=== PATIENT | female | born 1970 | race Caucasian/White ===

== ENCOUNTER 2016-12-15 19:32 | Emergency (ER) | payer MEDICARE, OTHER ==
[2016-12-15 19:39] VITALS: RESP 18
[2016-12-15] MEDS ORDERED: ONDANSETRON 4 MG/2 ML VIAL IVP STA (20:19)
[2016-12-15] MEDS ORDERED: SODIUM CHLORIDE 0.9% 1,000 ML IV STA (20:19)
[2016-12-15] MEDS ORDERED: DIAZEPAM 5 MG TAB PO STA (20:22)
[2016-12-15 20:34] LABS: Basophils # (A) 0.1 k/uL (0-0.2); Basophils % (A) 1 %; CH 35.6; CHCM 33.1; Eosinophils # (A) 0.1 k/uL (0-0.7); Eosinophils % (A) 1 %; HCT 49.1 % (34.0-46.0); HDW 2.11; HGB 15.9 gm/dL (11.4-16.0); Luc # (Auto) 0.28; Luc % (Auto) 4; Lymphocytes # (A) 1.7 k/uL (1.0-4.8); Lymphocytes % (A) 23 %; MCH 34.9 pg (25.0-35.0); MCHC 32.3 g/dL (31.0-37.0); Macrocytosis Moderate; Mean Platelet Volume 7.9; Monocytes # (A) 0.4 k/uL (0-1.0); Monocytes % (A) 5 %; Neutrophils # (A) 4.9 k/uL (1.3-7.7); Neutrophils % (A) 66 %; RBC 4.55 m/uL (3.80-5.40); RDW 13.8 % (11.5-15.5); WBC 7.4 k/uL (3.8-10.6); WBC (Perox) 7.29
[2016-12-15 20:47] LABS: Partial Thromboplastin Time 24.1 sec (22.0-30.0); Prothrombin Time 10.1 sec (9.0-12.0)
[2016-12-15 20:49] LABS: ALT 38 U/L (9-52); AST 22 U/L (14-36); Alkaline Phosphatase 64 U/L (38-126); Anion Gap 15 mmol/L; Blood Urea Nitrogen 7 mg/dL (7-17); Calcium 10.2 mg/dL (8.4-10.2); Carbamazepine (Tegretol) 4.8 ug/mL; Carbon Dioxide 23 mmol/L (22-30); Chloride 110 mmol/L (98-107); Glucose 99 mg/dL (74-99); Non-African American GFR(MDRD) >60 (>60 ml/min/1.73 sqM); Potassium 3.5 mmol/L (3.5-5.1); Sodium 148 mmol/L (137-145); Total Bilirubin 0.7 mg/dL (0.2-1.3); Total Protein 7.6 g/dL (6.3-8.2)
[2016-12-15 20:52] LABS: Creatine Kinase 49 U/L (30-135)
--- NOTE | 2016-12-15 20:56 | XR ---
EXAMINATION TYPE: XR chest 2V DATE OF EXAM: 12/15/2016 8:39 PM COMPARISON: 11/17/2015 HISTORY: Chest pain TECHNIQUE: Frontal and lateral views of the chest are obtained. FINDINGS: Heart and mediastinum are normal. Lungs are clear. Costophrenic angles are clear. There ar e no hilar masses. There are chest leads. Bony thorax is intact. IMPRESSION: No active cardiopulmonary disease. No change.
[2016-12-15 21:05] LABS: Creatine Kinase MB 0.3 ng/mL (0.0-2.4); Troponin I <0.012 ng/mL (0.000-0.034)
--- NOTE | 2016-12-15 21:09 | CT ---
EXAMINATION TYPE: CT brain wo con DATE OF EXAM: 12/15/2016 9:00 PM COMPARISON: 06/06/2012 HISTORY: seizure today with weakness CT DLP: 1072.3 mGycm Automated exposure control for dose reduction was used. FINDINGS: There is mild frontal lobe atrophy.. There is no mass effect nor midline shift. There is no sign of i ntracranial hemorrhage. The calvarium is intact. IMPRESSION: No acute intracranial abnormality. Frontal lobe atrophy. No change compared to old exam.
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
[2016-12-16 00:09] VITALS: BP 108/60; PULSE 93; TEMP 98
== END 2016-12-16 00:10 | disposition home or self-care (01) ==
LOC: EC 19:32
DX: R55 Syncope and collapse (principal); R56.9 Unspecified convulsions; Z72.89 Other problems related to lifestyle; R51 Headache; R07.9 Chest pain, unspecified; J44.9 Chronic obstructive pulmonary disease, unspecified; F31.9 Bipolar disorder, unspecified; F41.9 Anxiety disorder, unspecified; Z86.14 Personal history of Methicillin resistant Staphylococcus aureus infection; F17.200 Nicotine dependence, unspecified, uncomplicated; Z79.899 Other long term (current) drug therapy; Z88.0 Allergy status to penicillin; Z91.041 Radiographic dye allergy status; Z91.018 Allergy to other foods; Z85.41 Personal history of malignant neoplasm of cervix uteri
CPT/HCPCS: 36415; 93005; 85379; 80156; 80053; 82550; 82553; 83735; 84484; 85025; 85610; 85730; 71020; 70450; 99285; 96374; 96361; J2405

== ENCOUNTER 2016-12-29 09:23 | Emergency (ER) | payer MEDICARE, OTHER ==
[2016-12-29] MEDS ORDERED: SODIUM CHLORIDE 0.9% 1,000 ML IV STA (09:42)
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
[2016-12-29 10:26] LABS: Basophils % (A) 0 %; CHCM 33.2; Eosinophils # (A) 0.1 k/uL (0-0.7); Eosinophils % (A) 2 %; HCT 41.3 % (34.0-46.0); HDW 2.17; HGB 14.1 gm/dL (11.4-16.0); Luc # (Auto) 0.19; Luc % (Auto) 3; Lymphocytes # (A) 1.9 k/uL (1.0-4.8); Lymphocytes % (A) 35 %; MCH 36.2 pg (25.0-35.0); MCHC 34.2 g/dL (31.0-37.0); MCV 105.9 fL (80.0-100.0); Macrocytosis Moderate; Mean Platelet Volume 7.1; Monocytes # (A) 0.4 k/uL (0-1.0); Monocytes % (A) 6 %; Neutrophils % (A) 54 %; RDW 13.6 % (11.5-15.5); WBC 5.6 k/uL (3.8-10.6); WBC (Perox) 5.62
[2016-12-29 10:35] LABS: Appearance,Urine Cloudy (Clear); Bacteria,Urine Rare /hpf; Bilirubin,Urine Negative (Negative); Glucose,Urine (UA) Negative (Negative); Ketones,Urine Trace (Negative); Leukocyte Esterase,Urine Negative (Negative); Mucus,Urine Many /hpf; Nitrite,Urine Positive (Negative); Particle Count 18919; Protein,Urine Trace (Negative); Specific Gravity,Urine 1.019 (1.001-1.035); Squamous Epithelial Cell,Urine 23 /hpf (0-4); UA Billing (MACRO vs. MICRO) MICRO; Urobilinogen,Urine <2.0 mg/dL (<2.0); WBC,Urine 5 /hpf (0-5)
[2016-12-29 10:40] LABS: ALT 61 U/L (9-52); AST 26 U/L (14-36); Alkaline Phosphatase 90 U/L (38-126); Anion Gap 10 mmol/L; Blood Urea Nitrogen 10 mg/dL (7-17); Calcium 9.2 mg/dL (8.4-10.2); Carbon Dioxide 28 mmol/L (22-30); Chloride 106 mmol/L (98-107); Glucose 87 mg/dL (74-99); Non-African American GFR(MDRD) >60 (>60 ml/min/1.73 sqM); Potassium 3.8 mmol/L (3.5-5.1); Sodium 144 mmol/L (137-145); Total Bilirubin 0.3 mg/dL (0.2-1.3); Total Protein 6.5 g/dL (6.3-8.2)
--- NOTE | 2016-12-29 10:45 | XR ---
EXAMINATION TYPE: XR chest 2V DATE OF EXAM: 12/29/2016 10:41 AM COMPARISON: NONE INDICATION: Cough rapid weight loss TECHNIQUE: Single frontal view of the chest is obtained. FINDINGS: The heart size is normal. The pulmonary vasculature is normal. The lungs are clear. There is a vertebral plasty in the region of L1. IMPRESSION: 1. No acute pulmonary process.
[2016-12-29 11:44] VITALS: BP 142/68; PULSE 73; RESP 18; TEMP 97.7
== END 2016-12-29 11:44 | disposition home or self-care (01) ==
LOC: EC 09:23
DX: N39.0 Urinary tract infection, site not specified (principal); R63.4 Abnormal weight loss; G40.909 Epilepsy, unspecified, not intractable, without status epilepticus; F31.9 Bipolar disorder, unspecified; F41.9 Anxiety disorder, unspecified; M79.7 Fibromyalgia; F17.200 Nicotine dependence, unspecified, uncomplicated; Z79.3 Long term (current) use of hormonal contraceptives; Z79.899 Other long term (current) drug therapy; Z88.0 Allergy status to penicillin; Z91.012 Allergy to eggs; Z91.018 Allergy to other foods; Z91.041 Radiographic dye allergy status; Z85.41 Personal history of malignant neoplasm of cervix uteri; Z90.710 Acquired absence of both cervix and uterus
CPT/HCPCS: 36415; 71020; 80053; 81001; 81025; 84443; 85025; 87086; 87502; 96360; 99284

== ENCOUNTER 2017-01-09 14:32 | Emergency (ER) | payer MEDICARE, OTHER ==
[2017-01-09 14:47] VITALS: RESP 16
[2017-01-09] MEDS ORDERED: PANTOPRAZOLE 40 MG/10 ML VIAL IVP STA (15:16)
[2017-01-09] MEDS ORDERED: ONDANSETRON 4 MG/2 ML VIAL IVP STA (15:16)
[2017-01-09] MEDS ORDERED: SODIUM CHLORIDE 0.9% 1,000 ML IV STA ×3 (15:16→16:18)
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
[2017-01-09 15:57] LABS: Basophils % (A) 0 %; CH 35.4; CHCM 33.6; Eosinophils % (A) 0 %; HCT 39.5 % (34.0-46.0); HDW 2.49; HGB 13.2 gm/dL (11.4-16.0); Luc # (Auto) 0.11; Luc % (Auto) 2; Lymphocytes # (A) 2.1 k/uL (1.0-4.8); Lymphocytes % (A) 36 %; MCH 35.5 pg (25.0-35.0); MCHC 33.5 g/dL (31.0-37.0); Macrocytosis Moderate; Mean Platelet Volume 8.4; Monocytes # (A) 0.3 k/uL (0-1.0); Monocytes % (A) 5 %; Neutrophils # (A) 3.2 k/uL (1.3-7.7); Neutrophils % (A) 57 %; RBC 3.73 m/uL (3.80-5.40); RDW 13.8 % (11.5-15.5); WBC 5.7 k/uL (3.8-10.6)
--- NOTE | 2017-01-09 16:08 | CT ---
EXAMINATION TYPE: CT abdomen pelvis wo con DATE OF EXAM: 01/09/2017 3:57 PM COMPARISON: NONE INDICATION: abdominal pain N/V/D DLP: 252.2 mGycm, Automated exposure control for dose reduction was used. CONTRAST: No IV contrast. Study performed without Oral Contrast TECHNIQUE: Axial images were obtained from above the diaphragm to the pubic rami in the axial plane a t 5 mm thick sections. Reconstructed images are reviewed on the computer in the coronal plane. FINDINGS: Bilateral breast prostheses are present. Limited CT sections are obtained the lung bases. Some streak opacities in the anterior right middle lobe above the diaphragm.. CT ABDOMEN: Surgical clips are within the epigastric region. Liver: Normal Spleen: Normal Pancreas: Normal Adrenal glands: The adrenal glands are normal. Gallbladder: Not identified. Kidneys: No masses are evident. No hydronephrosis is present. No cysts are present. Delayed images were obtained through the kidneys, which remain unremarkable. There is 0.2 cm calcification is in th e posterior left mid kidney without evidence of obstruction. Aorta: Vascular calcification is within the aorta. Inferior vena cava: Normal. CT PELVIS: Loops of bowel within the abdomen and pelvis are normal. There are loops of bowel which are incom pletely distended or lack oral contrast limiting their evaluation. Appendix: Normal as visualized. Urinary bladder: Decompressed with limited evaluation. Genitourinary structures: Uterus is not identified. Adnexal regions appear clear. No free fluid is wi thin the pelvis. Osseous structures: No suspicious lytic or sclerotic lesions. Bilateral hip screws are present. Facet degenerative changes are within the lumbar spine. There may be prior vertebroplasty at L1. A sclerot ic lesion could be considered. IMPRESSIONS: 1. Nonobstructing punctate left renal stone. 2. No suspicious acute changes.
[2017-01-09 16:09] LABS: ALT 220 U/L (9-52); AST 112 U/L (14-36); Alcohol <10 mg/dL; Alkaline Phosphatase 172 U/L (38-126); Amylase 53 U/L (30-110); Anion Gap 10 mmol/L; Blood Urea Nitrogen 8 mg/dL (7-17); Calcium 9.6 mg/dL (8.4-10.2); Carbamazepine (Tegretol) <3.0 ug/mL; Carbon Dioxide 24 mmol/L (22-30); Chloride 109 mmol/L (98-107); Glucose 89 mg/dL (74-99); Non-African American GFR(MDRD) >60 (>60 ml/min/1.73 sqM); Potassium 3.8 mmol/L (3.5-5.1); Sodium 143 mmol/L (137-145); Total Bilirubin 0.7 mg/dL (0.2-1.3); Total Protein 6.5 g/dL (6.3-8.2)
[2017-01-09 16:11] LABS: Partial Thromboplastin Time 23.5 sec (22.0-30.0); Prothrombin Time 10.2 sec (9.0-12.0)
[2017-01-09 16:52] VITALS: PULSE 55; TEMP 97.5
[2017-01-09 18:20] LABS: Appearance,Urine Clear (Clear); Bilirubin,Urine Negative (Negative); Glucose,Urine (UA) Negative (Negative); Ketones,Urine Trace (Negative); Leukocyte Esterase,Urine Negative (Negative); Nitrite,Urine Negative (Negative); Protein,Urine Trace (Negative); Specific Gravity,Urine 1.012 (1.001-1.035); UA Billing (MACRO vs. MICRO) CHEM
[2017-01-09 19:49] VITALS: BP 124/74
== END 2017-01-09 19:49 | disposition home or self-care (01) ==
LOC: EC 14:32
DX: N20.0 Calculus of kidney (principal); R74.0 Nonspecific elevation of levels of transaminase and lactic acid dehydrogenase [LDH]; F10.10 Alcohol abuse, uncomplicated; R10.32 Left lower quadrant pain; R11.2 Nausea with vomiting, unspecified; R63.4 Abnormal weight loss; R00.1 Bradycardia, unspecified; G40.909 Epilepsy, unspecified, not intractable, without status epilepticus; F31.9 Bipolar disorder, unspecified; F41.9 Anxiety disorder, unspecified; F42.9 Obsessive-compulsive disorder, unspecified; F17.200 Nicotine dependence, unspecified, uncomplicated; Z79.899 Other long term (current) drug therapy; Z88.0 Allergy status to penicillin; Z91.012 Allergy to eggs; Z91.018 Allergy to other foods; Z91.041 Radiographic dye allergy status; Z90.49 Acquired absence of other specified parts of digestive tract; Z90.710 Acquired absence of both cervix and uterus; Z98.51 Tubal ligation status
CPT/HCPCS: 99284; 96374; 96375; 96361 ×4; 36415; 93005; 80156; 80053; 82150; 83605; 83690; 85025; 85610; 85730; 81003; 87040; 80320; 74176; J2405; C9113

== ENCOUNTER 2017-01-26 08:26 | Day surgery (SDC) | payer MEDICARE, OTHER ==
[2017-01-24 14:56] VITALS: BMI 18.1
[~2017-01-26 08:26] MED LIST: LACTATED RINGERS 1,000 ML IV SCH; LIDOCAINE 1% 20 ML VIAL (10MG/ML) FOR IV START INTRADERMA PRN
[2017-01-26 10:18] VITALS: RESP 16; TEMP 97.2
[2017-01-26] MEDS ORDERED: PROPOFOL 10 MG/ML 20 ML VIAL IV ONE (11:32)
[2017-01-26] MEDS ORDERED: fentaNYL (PF) 50 MCG/ML 2 ML AMP ONE (11:32)
[2017-01-26] MEDS ORDERED: LIDOCAINE 1% INJ 10MG/ML (20 ML MDV) ONE ×2 (11:32)
--- NOTE | 2017-01-26 12:28 | P.PCN ---
Date of Procedure: 01/26/17 Procedure(s) Performed: Procedures: Esophagogastroduodenoscopy and biopsy. Total colonoscopy. Preoperative diagnosis: Epigastric pain and change in bowel habits. Postoperative diagnosis: 1. S/P [place] fundoplication with no obvious esophagitis. 2. Mild antral gastritis. 3. Normal colonoscopy. Preparation: HalfLytely prep. Sedation: Was provided by anesthesia. Brief clinical history: The patient is a 46-year-old female who is referred for this evaluation because of unexplained epigastric pain and change in bowel habits with worsening constipation. The patient had [place] fundoplication last year. She is not experiencing acid reflux or heart nicole. No overt bleeding. Procedure: With the patient on her left lateral decubitus position and after informed consent and adequate sedation, I passed a Olympus-GIF 160 video upper endoscope through the cricopharyngeus down the esophagus. GE junction was around 41 cm from the incisors and there was a very small hiatal hernia less than 1 cm. The esophagus did not show any erosions, ulcers, strictures or Crwaley's esophagus. The endoscope was then passed into the stomach which was insufflated with air and inspected in detail including the retroflex view in the cardia. There was some mottling and erythema in the antrum but no ulcers or erosions. The patient has evidence of prior [place] fundoplication and the wrap did not appear too tight or very loose. Pyloric channel, duodenal bulb, post bulbar area and descending duodenum appeared within normal limits. I obtained biopsies from the duodenum, antrum and esophagus then the endoscope was withdrawn and I proceeded to do colonoscopy. Perianal area did not show any fissures or fistulas. There were no masses felt on digital rectal examination. The Olympus CFQ 160L video colonoscope was then inserted in the rectum in the usual fashion and advanced to the cecum. I intubated the ileocecal valve and examined the terminal ileum. Terminal ileum and colon appeared healthy. No obvious diverticular disease or any polyps or tumors or other pathology were seen. I retroflexed the endoscope in the rectum before the endoscope was withdrawn. The patient tolerated the procedure well. Plan: The patient was reassured. Discussed dietary measures. Would await pathology results and make further recommendations based on her course and biopsy results. She will follow-up with you as planned.
[2017-01-26 12:34] VITALS: BP 131/80; PULSE 60
== END 2017-01-26 13:08 | disposition home or self-care (01) ==
LOC: ORWHC2ENDO 08:26
DX: K29.50 Unspecified chronic gastritis without bleeding (principal); R19.4 Change in bowel habit; K20.9 Esophagitis, unspecified; K59.00 Constipation, unspecified; F17.200 Nicotine dependence, unspecified, uncomplicated; K44.9 Diaphragmatic hernia without obstruction or gangrene; Z90.710 Acquired absence of both cervix and uterus; Z79.899 Other long term (current) drug therapy; Z98.890 Other specified postprocedural states
CPT/HCPCS: 88305; 88342; 45378; 43239; J2001; J3010; J2704

== ENCOUNTER → 2017-04-04 | Outpatient (CLI) | payer MEDICARE, OTHER ==
[2017-04-04 16:38] LABS: Basophils % (A) 0 %; CH 34.4; CHCM 33.9; Eosinophils # (A) 0.1 k/uL (0-0.7); Eosinophils % (A) 1 %; HCT 39.5 % (34.0-46.0); HDW 2.19; HGB 13.8 gm/dL (11.4-16.0); Luc % (Auto) 2; Lymphocytes # (A) 1.8 k/uL (1.0-4.8); Lymphocytes % (A) 31 %; MCH 35.6 pg (25.0-35.0); MCV 101.8 fL (80.0-100.0); Macrocytosis Slight; Mean Platelet Volume 7.7; Monocytes # (A) 0.4 k/uL (0-1.0); Monocytes % (A) 6 %; Neutrophils # (A) 3.5 k/uL (1.3-7.7); Neutrophils % (A) 60 %; RBC 3.88 m/uL (3.80-5.40); RDW 13.4 % (11.5-15.5); WBC 5.8 k/uL (3.8-10.6); WBC (Perox) 5.77
== END | disposition home or self-care (01) ==
LOC: LABWHC1 16:03
PROVIDERS: ATTEND Psychiatry & Neurology Psychiatry
DX: F31.75 Bipolar disorder, in partial remission, most recent episode depressed (principal)
CPT/HCPCS: 36415; 80156; 85025

== ENCOUNTER 2017-07-04 12:04 | Emergency (ER) | payer MEDICARE, OTHER ==
[2017-07-04 12:42] VITALS: RESP 18; TEMP 98.2
--- NOTE | 2017-07-04 12:54 | ED ---
General Adult HPI - General Chief complaint: Chest Pain Stated complaint: Fall-Rib Pain Time Seen by Provider: 07/04/17 12:47 Source: patient Mode of arrival: ambulatory Limitations: physical limitation - History of Present Illness Initial comments: 47-year-old female patient presented to emergency department with complaints of left rib pain. Patient states that approximately 3 weeks ago she was climbing up a boat ladder when she missed the last rung and fell hitting her ribs on the side of the boat. She states since then she has had significant pain to the left ribs, states that the pain increases with any coughing, deep breathing, sneezing, or laughing. She states that the pain does not seem be getting any better. She states she did have some [place] left over from a previous injury and had been taking that. She states she is out of that now. She denies any shortness of breath, cough, congestion, sputum production, fever, or chills. Patient denies any headache, neck pain, back pain, chest pain, dizziness, weakness, abdominal pain, nausea, vomiting, or difficulties with urination. She states straining to have bowel movements is also painful so she is feeling constipated as well. - Related Data Home Medications Medication Instructions Recorded Confirmed Diazepam [Valium] 10 mg PO TID PRN 08/26/15 01/24/17 SUMAtriptan SUCCINATE [Sumatriptan 4 mg SQ DAILY PRN 05/04/16 01/26/17 Succinate] Ziprasidone HCl [Geodon] 60 mg PO HS 05/04/16 01/26/17 carBAMazepine [Carbamazepine ER] 400 mg PO HS 05/04/16 01/26/17 Albuterol Inhaler [Ventolin Hfa 2 puff INHALATION RT-Q6H PRN 07/19/16 01/24/17 Inhaler] Estradiol [Estrace] 1 mg PO HS 07/19/16 01/26/17 oxyCODONE-APAP 10-325MG [Percocet 1 tab PO TID PRN 07/19/16 01/26/17 10-325 mg] Melatonin 10 mg PO HS PRN 12/29/16 01/26/17 Ondansetron [Zofran] 4 mg PO Q8HR PRN 01/24/17 01/26/17 Previous Rx's Medication Instructions Recorded Omeprazole [PriLOSEC] 40 mg PO DAILY #30 capsule. 01/09/17 Docusate [Colace] 100 mg PO DAILY #10 capsule 07/04/17 Ibuprofen 800 mg PO TID PRN #30 tablet 07/04/17 traMADol HCl [Ultram] 50 mg PO Q6H PRN #28 tab 07/04/17 Allergies Allergy/AdvReac Type Severity Reaction Status Date / Time Penicillins Allergy Severe Anaphylaxis Verified 07/04/17 12:42 Iodinated Contrast- Oral and Allergy Unknown Rash/Hives Verified 07/04/17 12:42 IV Dye [Iodinated Contrast Media - IV Dye] egg yolk Allergy Unknown Verified 07/04/17 12:42 mustard Allergy Unknown Verified 07/04/17 12:42 Review of Systems ROS Statement: Those systems with pertinent positive or pertinent negative responses have been documented in the HPI. ROS Other: All systems not noted in ROS Statement are negative. Past Medical History Past Medical History: Cancer, COPD, Fibromyalgia, GERD/Reflux, Hypertension, Osteoarthritis (OA), Seizure Disorder Additional Past Medical History / Comment(s): HX CERVICAL CA, MIGRAINES, POSITIVE HPV, FREQUENT CONSTIPATION. LAST SEIZURE 12/26/2015. , H-PYLORI, COMPRESSION FX BACK, LOW THYROID. History of Any Multi-Drug Resistant Organisms: MRSA Date of last positivie culture/infection: NOVEMBER 2012 MDRO Source:: RT ELBOW Past Surgical History: Breast Surgery, Cholecystectomy, Hysterectomy, Orthopedic Surgery, Tonsillectomy, Tubal Ligation Additional Past Surgical History / Comment(s): RT ROTATOR CUFF REPAIR. SHAWANDA HIP SURGERY (INJURY). BREAST AUGMENTATION, LUMP LT NECK, RT ELBOW SURGERY FOR MRSA INFECTION., CARMEN FUNDOPLASTY (11/24/15). EGD and balloon dilatation-12/23/15 , 12/31 2016: Revision of fundoplication, bilateral oophorectomy for ovarian cysts Past Anesthesia/Blood Transfusion Reactions: No Reported Reaction, Family History of Problems w/ Anesthesia Additional Past Anesthesia/Blood Transfusion Reaction / Comment(s): MOTHER= A- FIB WITH ANESTHESIA. Past Psychological History: Anxiety, Bipolar, Depression Smoking Status: Heavy tobacco smoker Past Alcohol Use History: None Reported Past Drug Use History: None Reported - Past Family History Father Family Medical History: Hypertension Additional Family Medical History / Comment(s): Father at age 58 most likely due to complications from alcoholism and drug addiction. He also had history of hypertension and glaucoma. Brother(s) Family Medical History: No Reported History Additional Family Medical History / Comment(s): She has one brother that is a recovered alcoholic with no other major medical problems. Sister(s) Additional Family Medical History / Comment(s): Patient has one sister that suffers from depression and anxiety Mother Family Medical History: Cancer, Dementia, Deep Vein Thrombosis (DVT), Hypertension, Pulmonary Embolus Additional Family Medical History / Comment(s): history of corneal transplant, hypertension, diabetes, BREAST CA. Maternal grandmother history of breast cancer General Exam Limitations: physical limitation General appearance: alert, in no apparent distress, other (This is a well- developed, well-nourished adult female patient in no acute distress. Vital signs upon presentation are temperature 98.2F, pulse 97, respirations 18, blood pressure 132/86, pulse ox 99% on room air.) Eye exam: Present: normal appearance, PERRL, EOMI. Absent: scleral icterus, conjunctival injection, periorbital swelling ENT exam: Present: normal exam, normal oropharynx, mucous membranes moist Neck exam: Present: normal inspection, full ROM. Absent: tenderness, meningismus, lymphadenopathy Respiratory exam: Present: normal lung sounds bilaterally, chest wall tenderness (Left anterior chest wall tenderness over the mid axillary line at approximately ribs 8 and 9.). Absent: respiratory distress, wheezes, rales, rhonchi, stridor Cardiovascular Exam: Present: regular rate, normal rhythm, normal heart sounds. Absent: systolic murmur, diastolic murmur, rubs, gallop, clicks GI/Abdominal exam: Present: soft, normal bowel sounds. Absent: distended, tenderness, guarding, rebound, rigid Back exam: Present: normal inspection. Absent: tenderness, vertebral tenderness Neurological exam: Present: alert, oriented X3, CN II-XII intact Psychiatric exam: Present: normal affect, normal mood Skin exam: Present: warm, dry, intact, normal color. Absent: rash Course Vital Signs 07/04/17 07/04/17 12:37 13:43 Temperature 98.2 F Pulse Rate 97 66 Respiratory 18 18 Rate Blood Pressure 132/86 138/84 O2 Sat by Pulse 99 97 Oximetry Medical Decision Making - Medical Decision Making 47-year-old female patient presented for evaluation of left anterior rib pain after an injury sustained 3 weeks ago. X-ray of the chest and ribs showed anterior rib fractures to ribs 8 and 9. There is no evidence of pneumothorax or focal lung consolidation. Physical exam did show some anterior rib tenderness. No abdominal tenderness, ecchymosis, or distention. Patient was given incentive spirometer and education while here in the department. Did give her prescription for Ultram and ibuprofen for pain control. Did educate her regarding coughing and deep breathing. I also did give her prescription for Colace that she has been constipated all taking the [place] and due to pain in the ribs with straining to have a bowel movement. I instructed her to follow up with her primary care physician for recheck in a couple of days. I instructed her to return here immediately for any new, worsening, or concerning symptoms. She verbalizes understanding and agreement with this plan. - Radiology Data Radiology results: report reviewed, image reviewed Single view of the chest and 4 views of the right ribs are submitted. Findings show the lungs are clear. No evidence for pneumothorax. No evidence for focal contusion. Mediastinal structures are midline. Evaluation of the ribs demonstrates a virtually nondisplaced fractures involving the anterior left ribs 8 and 9. No additional rib fracture seen. L1 vertebral plasty changes identified. Impression by Dr. Brandt states fractures of left ribs 8 and 9. No evidence for contusion or pneumothorax at this time. Disposition Clinical Impression: Rib fractures Disposition: HOME SELF-CARE Condition: Good Instructions: How to Use an Incentive Spirometer (ED), Rib Fracture (ED) Additional Instructions: Take pain medications as directed. Follow with her primary care physician for recheck in 1-2 days. Use incentives barometer as directed. At least 10 times per hour while awake. Splint chest area while coughing and deep breathing. Return here immediately for any new, worsening, or concerning symptoms. Prescriptions: Docusate [Colace] 100 mg PO DAILY #10 capsule Ibuprofen 800 mg PO TID PRN #30 tablet PRN Reason: Pain traMADol HCl [Ultram] 50 mg PO Q6H PRN #28 tab PRN Reason: Pain Referrals: None,Stated [Primary Care Provider] - 1-2 days Time of Disposition: 13:43
--- NOTE | 2017-07-04 13:19 | XR ---
EXAMINATION TYPE: XR ribs LT w pa chest xray DATE OF EXAM: 07/04/2017 COMPARISON: NONE HISTORY: Pain TECHNIQUE: Single view of the chest 4 views of the ribs are submitted. FINDINGS: The lungs are clear. No Evidence for pneumothorax. No evidence for focal contusion. Mediastinal st ructures are midline. Evaluation of the ribs demonstrates that virtually nondisplaced fractures involving the anterior left ribs 8 and 9. No additional rib fractures seen. L1 vertebroplasty changes identified. IMPRESSION: 1. Fractures of left ribs 8 and 9. 2. No evidence for contusion or pneumothorax at this time.
[2017-07-04 13:45] VITALS: BP 138/84; PULSE 66
== END 2017-07-04 14:05 | disposition home or self-care (01) ==
LOC: EC 12:04
DX: S22.42XA Multiple fractures of ribs, left side, initial encounter for closed fracture (principal); F31.9 Bipolar disorder, unspecified; G40.909 Epilepsy, unspecified, not intractable, without status epilepticus; F17.200 Nicotine dependence, unspecified, uncomplicated; Z86.14 Personal history of Methicillin resistant Staphylococcus aureus infection; Z85.41 Personal history of malignant neoplasm of cervix uteri; Z88.0 Allergy status to penicillin; Z91.041 Radiographic dye allergy status; Z91.012 Allergy to eggs; Z91.018 Allergy to other foods; Z79.3 Long term (current) use of hormonal contraceptives; Z79.899 Other long term (current) drug therapy; W01.198A Fall on same level from slipping, tripping and stumbling with subsequent striking against other object, initial encounter; Y93.39 Activity, other involving climbing, rappelling and jumping off; Y92.814 Boat as the place of occurrence of the external cause
CPT/HCPCS: 99283

== ENCOUNTER 2018-01-23 21:12 | Emergency (ER) | payer MEDICARE, OTHER ==
[2018-01-23 21:38] VITALS: TEMP 98.3
[2018-01-23] MEDS ORDERED: FAMOTIDINE 20 MG/2 ML VIAL IV STA (22:07)
[2018-01-23] MEDS ORDERED: diphenhydrAMINE 50 MG/ML 1 ML VIAL IVP STA (22:07)
[2018-01-23] MEDS ORDERED: RX INFO: IV CONTRAST WAS GIVEN 1 EACH MISC MISCELLANE PRN (22:07)
[2018-01-23] MEDS ORDERED: methylPREDNISolone SOD SUCCI 125 MG/2 ML VIAL IV STA (22:07)
--- NOTE | 2018-01-23 22:11 | ED ---
Abdominal Pain HPI - General Chief Complaint: Abdominal Pain Stated Complaint: bowel problems Time Seen by Provider: 01/23/18 21:52 Source: patient Mode of arrival: ambulatory Limitations: no limitations - History of Present Illness Initial Comments: Patient is a 47 children who presents with chief complaint of constipation and lower abdominal pain or one month. The patient states that she had phoned mucousy diarrhea last month. She took an antidiarrheal on the prior to a road trip and since then has not had a normal bowel movement. The patient states that she is constipated. She cannot identify any inciting incidences. There are no aggravating or alleviating factors. Timing is constant. Patient states that her abdominal pain is characterized as an ache. - Related Data Home Medications Medication Instructions Recorded Confirmed Diazepam [Valium] 10 mg PO TID PRN 08/26/15 01/23/18 Ziprasidone HCl [Geodon] 60 mg PO HS 05/04/16 01/23/18 Estradiol [Estrace] 1 mg PO HS 07/19/16 01/23/18 carBAMazepine [TEGretol] 200 mg PO Q12H 01/23/18 01/23/18 Previous Rx's Medication Instructions Recorded Docusate [Colace] 100 mg PO BID #30 capsule 01/24/18 Magnesium Citrate 592 ml PO ONCE #2 bottle 01/24/18 Allergies Allergy/AdvReac Type Severity Reaction Status Date / Time Penicillins Allergy Severe Anaphylaxis Verified 01/23/18 21:56 Iodinated Contrast- Oral and Allergy Unknown Rash/Hives Verified 01/23/18 21:56 IV Dye [Iodinated Contrast Media - IV Dye] egg yolk Allergy Unknown Verified 01/23/18 21:56 mustard Allergy Unknown Verified 01/23/18 21:56 Review of Systems ROS Statement: Those systems with pertinent positive or pertinent negative responses have been documented in the HPI. ROS Other: All systems not noted in ROS Statement are negative. Gastrointestinal: Reports: abdominal pain, constipation Past Medical History Past Medical History: Cancer, COPD, Fibromyalgia, GERD/Reflux, Hypertension, Osteoarthritis (OA), Seizure Disorder Additional Past Medical History / Comment(s): HX CERVICAL CA, MIGRAINES, POSITIVE HPV, FREQUENT CONSTIPATION. LAST SEIZURE 12/26/2015. , H-PYLORI, COMPRESSION FX BACK, LOW THYROID. History of Any Multi-Drug Resistant Organisms: MRSA Date of last positivie culture/infection: NOVEMBER 2012 MDRO Source:: RT ELBOW Past Surgical History: Breast Surgery, Cholecystectomy, Hysterectomy, Orthopedic Surgery, Tonsillectomy, Tubal Ligation Additional Past Surgical History / Comment(s): RT ROTATOR CUFF REPAIR. SHAWANDA HIP SURGERY (INJURY). BREAST AUGMENTATION, LUMP LT NECK, RT ELBOW SURGERY FOR MRSA INFECTION., CARMEN FUNDOPLASTY (11/24/15). EGD and balloon dilatation-12/23/15 , 01/01 2016: Revision of fundoplication, bilateral oophorectomy for ovarian cysts Past Anesthesia/Blood Transfusion Reactions: No Reported Reaction, Family History of Problems w/ Anesthesia Additional Past Anesthesia/Blood Transfusion Reaction / Comment(s): MOTHER= A- FIB WITH ANESTHESIA. Past Psychological History: Anxiety, Bipolar, Depression Smoking Status: Heavy tobacco smoker Past Alcohol Use History: Occasional Past Drug Use History: None Reported - Past Family History Father Family Medical History: Hypertension Additional Family Medical History / Comment(s): Father at age 58 most likely due to complications from alcoholism and drug addiction. He also had history of hypertension and glaucoma. Brother(s) Family Medical History: No Reported History Additional Family Medical History / Comment(s): She has one brother that is a recovered alcoholic with no other major medical problems. Sister(s) Additional Family Medical History / Comment(s): Patient has one sister that suffers from depression and anxiety Mother Family Medical History: Cancer, Dementia, Deep Vein Thrombosis (DVT), Hypertension, Pulmonary Embolus Additional Family Medical History / Comment(s): history of corneal transplant, hypertension, diabetes, BREAST CA. Maternal grandmother history of breast cancer General Exam Limitations: no limitations General appearance: alert, in no apparent distress Head exam: Present: atraumatic, normocephalic Eye exam: Present: normal appearance ENT exam: Present: normal exam Neck exam: Present: normal inspection Respiratory exam: Present: normal lung sounds bilaterally. Absent: respiratory distress, wheezes Cardiovascular Exam: Present: regular rate. Absent: normal rhythm, bradycardia GI/Abdominal exam: Present: soft, tenderness (Mild tenderness palpation in the lower abdomen). Absent: distended, guarding, rebound Extremities exam: Present: normal inspection Back exam: Present: normal inspection. Absent: CVA tenderness (R), CVA tenderness (L) Neurological exam: Present: alert, oriented X3 Psychiatric exam: Present: normal affect, normal mood Skin exam: Present: warm, dry, intact Course Vital Signs 01/23/18 01/24/18 21:33 00:02 Temperature 98.3 F Pulse Rate 80 74 Respiratory 20 16 Rate Blood Pressure 157/86 149/93 O2 Sat by Pulse 99 96 Oximetry Medical Decision Making - Medical Decision Making Patient presents with a chief complaint of lower abdominal pain and constipation. On initial evaluation, vital signs are stable, patient is no acute distress. Patient has a history of mucousy diarrhea prior to onset of her constipation. She'll be evaluated with basic labs including liver profile and lipase. She'll be sent for computed tomography scan of the abdomen and pelvis with contrast. Patient states she gets a rash with IV contrast, she was given Solu-Medrol, Benadryl, and Pepcid prior to exam. 12:07 AM Lab evaluation this patient is unremarkable. Computed tomography scan of the abdomen and pelvis shows no evidence of intra-abdominal infection or bowel obstruction. Independent review of the films shows a moderate to large amount of stool within the small bowels and colon. I discussed these results with the patient. I recommended use of magnesium citrate at home. Patient will be prescribed stool softeners 2 bottles of magnesium citrate. She was instructed on the use. Patient was instructed to follow up with primary care in 1-2 days or return to the emergency department if symptoms worsen or change. - Lab Data Result diagrams: 01/23/18 22:37 01/23/18 22:37 Lab Results 01/23/18 01/23/18 01/23/18 Range/Units 22:37 22:37 22:37 WBC 7.8 (3.8-10.6) k/uL RBC 3.50 L (3.80-5.40) m/uL Hgb 12.2 (11.4-16.0) gm/dL Hct 35.7 (34.0-46.0) % MCV 102.0 H (80.0-100.0) fL MCH 34.9 (25.0-35.0) pg MCHC 34.2 (31.0-37.0) g/dL RDW 12.8 (11.5-15.5) % Plt Count 194 (150-450) k/uL Neutrophils % 50 % Lymphocytes % 41 % Monocytes % 6 % Eosinophils % 2 % Basophils % 0 % Neutrophils # 3.9 (1.3-7.7) k/uL Lymphocytes # 3.2 (1.0-4.8) k/uL Monocytes # 0.4 (0-1.0) k/uL Eosinophils # 0.1 (0-0.7) k/uL Basophils # 0.0 (0-0.2) k/uL Macrocytosis Slight Sodium 145 (137-145) mmol/L Potassium 3.9 (3.5-5.1) mmol/L Chloride 111 H (98-107) mmol/L Carbon Dioxide 23 (22-30) mmol/L Anion Gap 11 mmol/L BUN 9 (7-17) mg/dL Creatinine 0.60 (0.52-1.04) mg/dL Est GFR (CKD-EPI)AfAm >90 (>60 ml/min/1.73 sqM) Est GFR (CKD-EPI)NonAf >90 (>60 ml/min/1.73 sqM) Glucose 94 (74-99) mg/dL Calcium 9.1 (8.4-10.2) mg/dL Total Bilirubin 0.2 (0.2-1.3) mg/dL AST 18 (14-36) U/L ALT 19 (9-52) U/L Alkaline Phosphatase 84 (38-126) U/L Total Protein 6.1 L (6.3-8.2) g/dL Albumin 3.8 (3.5-5.0) g/dL Lipase 97 (23-300) U/L Urine Color Yellow Urine Appearance Clear (Clear) Urine pH 7.0 (5.0-8.0) Ur Specific [place] 1.024 (1.001-1.035) Urine Protein Trace H (Negative) Urine Glucose (UA) Negative (Negative) Urine Ketones Negative (Negative) Urine Blood Negative (Negative) Urine Nitrite Negative (Negative) Urine Bilirubin Negative (Negative) Urine Urobilinogen 3.0 (<2.0) mg/dL Ur Leukocyte Esterase Trace H (Negative) Urine RBC 1 (0-5) /hpf Urine WBC 3 (0-5) /hpf Ur Squamous Epith Cells 4 (0-4) /hpf Urine Mucus Few H (None) /hpf Disposition Clinical Impression: Constipation Disposition: HOME SELF-CARE Condition: Good Instructions: Constipation (ED) Prescriptions: Docusate [Colace] 100 mg PO BID #30 capsule Magnesium Citrate 592 ml PO ONCE #2 bottle Is patient prescribed a controlled substance at d/c from ED?: No Referrals: Ramy Faulkner MD [Primary Care Provider] - 1-2 days
[2018-01-23 22:56] LABS: Basophils % (A) 0 %; Eosinophils # (A) 0.1 k/uL (0-0.7); Eosinophils % (A) 2 %; HCT 35.7 % (34.0-46.0); HGB 12.2 gm/dL (11.4-16.0); Lymphocytes # (A) 3.2 k/uL (1.0-4.8); Lymphocytes % (A) 41 %; MCH 34.9 pg (25.0-35.0); MCHC 34.2 g/dL (31.0-37.0); Macrocytosis Slight; Mean Platelet Volume 8.1; Monocytes # (A) 0.4 k/uL (0-1.0); Monocytes % (A) 6 %; Neutrophils # (A) 3.9 k/uL (1.3-7.7); Neutrophils % (A) 50 %; Platelet Count 194 k/uL (150-450); RDW 12.8 % (11.5-15.5); WBC 7.8 k/uL (3.8-10.6)
[2018-01-23 23:07] LABS: ALT 19 U/L (9-52); AST 18 U/L (14-36); Albumin 3.8 g/dL (3.5-5.0); Alkaline Phosphatase 84 U/L (38-126); Anion Gap 11 mmol/L; Blood Urea Nitrogen 9 mg/dL (7-17); Calcium 9.1 mg/dL (8.4-10.2); Carbon Dioxide 23 mmol/L (22-30); Chloride 111 mmol/L (98-107); Glucose 94 mg/dL (74-99); Lipase 97 U/L (23-300); Potassium 3.9 mmol/L (3.5-5.1); Sodium 145 mmol/L (137-145); Total Bilirubin 0.2 mg/dL (0.2-1.3); Total Protein 6.1 g/dL (6.3-8.2)
[2018-01-23 23:10] LABS: Appearance,Urine Clear (Clear); Bilirubin,Urine Negative (Negative); Blood,Urine Negative (Negative); Color,Urine Yellow; Glucose,Urine (UA) Negative (Negative); Ketones,Urine Negative (Negative); Leukocyte Esterase,Urine Trace (Negative); Mucus,Urine Few /hpf; Nitrite,Urine Negative (Negative); Protein,Urine Trace (Negative); RBC,Urine 1 /hpf (0-5); Specific Gravity,Urine 1.024 (1.001-1.035); Squamous Epithelial Cell,Urine 4 /hpf (0-4); WBC,Urine 3 /hpf (0-5)
--- NOTE | 2018-01-23 23:55 | CT ---
EXAMINATION TYPE: CT abdomen pelvis w con DATE OF EXAM: 01/23/2018 COMPARISON: 01/09/2017 HISTORY: Constipation, Abd pain CT DLP: 1448 mGycm Automated exposure control for dose reduction was used. TECHNIQUE: Helical acquisition of images was performed from the lung bases through the pelvis. CONTRAST: Performed without Oral Contrast and with IV Contrast, patient injected with 100 mL of Isovue 300. FINDINGS: The lung bases are clear of consolidation. There is mild subsegmental atelectasis at the lung bases. There is no pleural effusion. Heart size is normal. There are clips at the gastroesophageal junction. Liver spleen pancreas appear normal. Bile ducts are not dilated. Gallbladder appears absent. There is no adrenal mass. Kidneys show satisfactory contrast opacification. There is no hydronephrosi s. Ureters are not dilated. There is no retroperitoneal adenopathy. There is no ascites. Bladder dist ends smoothly. There is no evidence of a pelvic mass. I see no intestinal wall thickening. There are no dilated loops. Appendix appears normal. There is no free fluid in the pelvis. I see no bony destructive process. There is a 10% compression deformity of L1 vertebra with vertebroplasty. IMPRESSION: MILD SUBSEGMENTAL ATELECTASIS AT THE LUNG BASES. NORMAL APPENDIX. I DO NOT SEE A CAUSE FOR ABDOMINAL PAIN. OLD VERTEBROPLASTY AT L1 NOTED.
[2018-01-24 00:03] VITALS: BP 149/93; PULSE 74; RESP 16
== END 2018-01-24 00:25 | disposition home or self-care (01) ==
LOC: EC 21:12
DX: K59.00 Constipation, unspecified (principal); R10.30 Lower abdominal pain, unspecified; G40.909 Epilepsy, unspecified, not intractable, without status epilepticus; F31.9 Bipolar disorder, unspecified; F41.9 Anxiety disorder, unspecified; F17.200 Nicotine dependence, unspecified, uncomplicated; Z86.14 Personal history of Methicillin resistant Staphylococcus aureus infection; Z85.41 Personal history of malignant neoplasm of cervix uteri; Z79.899 Other long term (current) drug therapy; Z88.0 Allergy status to penicillin; Z91.041 Radiographic dye allergy status; Z91.018 Allergy to other foods; Z90.49 Acquired absence of other specified parts of digestive tract
CPT/HCPCS: 36415; 80053; 83690; 85025; 81001; 74177; 99284; 96374; 96375 ×2; J1200; J2930; Q9967

== ENCOUNTER → 2018-05-29 | Outpatient (CLI) | payer MEDICARE, OTHER ==
--- NOTE | 2018-05-29 12:55 | USB ---
Reason for exam: clinical finding. History: Patient is postmenopausal and has history of endometrial cancer at age 27. Family history of breast cancer in mother and breast cancer in grandmother. Implants in both breasts. Indicated problem(s): palpable abnormality in the left breast. Physical Findings: Nurse Summary: 0.5cm movable nodule 12 o'clock nipple (nurse dw). US Breast LT Left complete breast ultrasound includes all four quadrants, the retroareolar region and axilla. Finding demonstrates a 0.6 x 0.5 x 0.2cm oval, cluster, complex, cystic lesion at 12 o'clock, improving in appearance. Implant present. These results were verbally communicated with the patient and result sheet given to the patient on 05/29/18. ASSESSMENT: Probably benign, BI-RAD 3 RECOMMENDATION: Ultrasound of the left breast in 6 months.
== END | disposition home or self-care (01) ==
LOC: RADUSWWP 10:08
PROVIDERS: ATTEND Internal Medicine
DX: N63.20 Unspecified lump in the left breast, unspecified quadrant (principal)

== ENCOUNTER → 2018-05-29 | Outpatient (CLI) | payer MEDICARE, OTHER ==
[2018-05-29 10:32] LABS: Carbamazepine (Tegretol) 6.2 ug/mL
== END | disposition home or self-care (01) ==
LOC: LABWHC1 09:31
PROVIDERS: ATTEND Psychiatry & Neurology Psychiatry
DX: F31.31 Bipolar disorder, current episode depressed, mild (principal)
CPT/HCPCS: 36415; 80156; 84450; 84460

== ENCOUNTER → 2018-06-06 | Outpatient (CLI) | payer MEDICARE, OTHER ==
--- NOTE | 2018-06-06 11:52 | FL ---
EXAMINATION: Cervical and Thoracic Esophagram DATE OF EXAM: 06/06/2018 CLINICAL INDICATION: 48-year-old female with GERD, history of [place] fundoplication 2 years ago. Karen ent complains of inability to vomit. COMPARISON: 04/21/2016 Total Fluoroscopy Time: 2 minutes Total images: 23 FINDINGS: The swallowing mechanism is normal . There is moderate spondylotic changes in the mid to lower cervic al spine with anterior endplate spurs mildly impressing on the posterior wall of the cervical esophag us. No obstructive changes. Otherwise, the hypopharyngeal anatomy is preserved. The thoracic portion has a normal course and caliber caliber. There are mild tertiary peristaltic con tractions noted. The mucosa is normal and no persistent filling defect is encountered. No abnormal narrowing is identi fied. Post surgical changes of [place] fundoplication without evidence for any recurrent hernia. Gastroesoph ageal reflux could not be elicited with Valsalva or positional maneuvers. IMPRESSION: 1. Status post [place] fundoplication. No significant stricture, obstruction, or mucosal lesion is see n. 2. No recurrent hernia. Gastroesophageal reflux could not be elicited during the course of the exam.
== END ==
LOC: RADFLWHC 09:20
PROVIDERS: ATTEND Surgery
DX: K21.9 Gastro-esophageal reflux disease without esophagitis (principal)
CPT/HCPCS: 74220

== ENCOUNTER 2018-06-12 08:11 | Day surgery (SDC) | payer MEDICARE, OTHER ==
[2018-06-11 09:42] VITALS: BMI 19.5
[~2018-06-12 08:11] MED LIST changes: +HYDROmorphone 0.5 MG/0.5 ML SYRINGE IVP PRN
[2018-06-12 08:42] VITALS: RESP 16; TEMP 98.6
[2018-06-12] MEDS ORDERED: LIDOCAINE 1% 20 ML VIAL (10MG/ML) FOR IV START INTRADERMA ONE (08:43)
[2018-06-12] MEDS ORDERED: PROPOFOL 10 MG/ML 20 ML VIAL IV ONE (08:46)
--- NOTE | 2018-06-12 08:51 | P.GSHP ---
History of Present Illness H&P Date: 06/12/18 Chief Complaint: Emesis This a 48-year-old female who presents today for EGD. Patient states she has difficulty throwing up when she has migraines. She's had a previous hiatal hernia repair. Her recent esophagram shows no evidence of obstruction or reflux. Past Medical History Past Medical History: Cancer, COPD, Fibromyalgia, GERD/Reflux, Osteoarthritis ( OA), Seizure Disorder Additional Past Medical History / Comment(s): HX CERVICAL CANCER ., MIGRAINES WITH NAUSEA ., POSITIVE HPV, IBS-C., LAST SEIZURE 2016. , H-PYLORI, LOW THYROID .,SPURS IN BACK., HX OF LAP NESSEN- STATES UNABLE TO THROW-UP SINCE. History of Any Multi-Drug Resistant Organisms: MRSA Date of last positivie culture/infection: NOVEMBER 2012 MDRO Source:: RT ELBOW Past Surgical History: Breast Surgery, Cholecystectomy, Hysterectomy, Orthopedic Surgery, Tonsillectomy, Tubal Ligation Additional Past Surgical History / Comment(s): RT ROTATOR CUFF REPAIR. SHAWANDA HIP SURGERY (INJURY). BREAST AUGMENTATION, LUMP LT NECK, RT ELBOW SURGERY FOR MRSA INFECTION., CARMEN FUNDOPLASTY (11/24/15). EGD and balloon dilatation-12/23/15 , 12/31 2016: Revision of fundoplication, bilateral oophorectomy for ovarian cysts , FX BACK SURGERY "WITH CEMENT" Past Anesthesia/Blood Transfusion Reactions: No Reported Reaction, Family History of Problems w/ Anesthesia Additional Past Anesthesia/Blood Transfusion Reaction / Comment(s): MOTHER= A- FIB WITH ANESTHESIA. Past Psychological History: Anxiety, Bipolar, Depression Additional Psychological History / Comment(s): OCD. Smoking Status: Heavy tobacco smoker Past Alcohol Use History: Occasional Additional Past Alcohol Use History / Comment(s): SMOKES SINCE AGE 15. SMOKES < 1PPD. Past Drug Use History: None Reported - Past Family History Father Family Medical History: Hypertension Additional Family Medical History / Comment(s): Father at age 58 most likely due to complications from alcoholism and drug addiction. He also had history of hypertension and glaucoma. Brother(s) Family Medical History: No Reported History Additional Family Medical History / Comment(s): She has one brother that is a recovered alcoholic with no other major medical problems. Sister(s) Additional Family Medical History / Comment(s): Patient has one sister that suffers from depression and anxiety Mother Family Medical History: Cancer, Dementia, Deep Vein Thrombosis (DVT), Hypertension, Pulmonary Embolus Additional Family Medical History / Comment(s): history of corneal transplant, hypertension, diabetes, BREAST CA. Maternal grandmother history of breast cancer Medications and Allergies Home Medications Medication Instructions Recorded Confirmed Type Diazepam [Valium] 10 mg PO TID PRN 08/26/15 06/12/18 History Estradiol [Estrace] 1 mg PO HS 07/19/16 06/11/18 History carBAMazepine [TEGretol] 400 mg PO HS 01/23/18 06/12/18 History Albuterol Inhaler [Ventolin Hfa 1 - 2 puff INHALATION RT-Q6H PRN 06/11/18 History Inhaler] Imitrex (Unknown Dose) 1 dose IM DIRECTED PRN 06/11/18 History Vitamin B-12 Injection 1 dose IM QMONTH 06/11/18 History Ziprasidone [Geodon] 80 mg PO HS 06/11/18 06/11/18 History Allergies Allergy/AdvReac Type Severity Reaction Status Date / Time Penicillins Allergy Severe Anaphylaxis Verified 06/12/18 08:28 Iodinated Contrast- Oral and Allergy Unknown Rash/Hives Verified 06/12/18 08:28 IV Dye [Iodinated Contrast Media - IV Dye] egg yolk Allergy Unknown Verified 06/12/18 08:28 mustard Allergy Unknown Verified 06/12/18 08:28 Surgical - Exam Vital Signs Temp Pulse Resp BP Pulse Ox 98.6 F 98 16 131/86 97 06/12/18 08:41 06/12/18 08:41 06/12/18 08:41 06/12/18 08:41 06/12/18 08:41 - General well developed, no distress - Eyes PERRL - ENT normal pinna - Neck no masses - Respiratory normal expansion - Cardiovascular Rhythm: regular - Abdomen Abdomen: soft, non tender Assessment and Plan Assessment: Emesis. We'll perform EGD.
--- NOTE | 2018-06-12 09:01 | P.OP ---
Date of Procedure: 06/12/18 Preoperative Diagnosis: Nausea Emesis Postoperative Diagnosis: Mild antral gastritis Procedure(s) Performed: EGD Anesthesia: MAC Surgeon: Sebastian Moss Pathology: other (Antrum) Condition: stable Disposition: PACU Description of Procedure: The patient's placed on the endoscopy table in the lateral position. She received IV sedation. The gastroscope placed oropharynx and passed into the esophagus and stomach. Scope was placed through the pylorus. The first second portion duodenum appeared normal. Scope was then brought back the antrum and this appeared mildly inflamed. A biopsies performed. The scope was then retroflexed and the remainder stomach appeared normal. There was no significant hiatal hernia. There is no evidence of any obstruction of the GE junction. The distal esophagus appeared normal. The proximal esophagus. Normal. The scope was withdrawn for patient. There is no evidence of obstruction of the GE junction. This was confirmed on endoscopy and esophagram.
[2018-06-12 09:26] VITALS: BP 131/85; PULSE 75
== END 2018-06-12 09:39 | disposition home or self-care (01) ==
LOC: ORWHC2ENDO 08:11
PROVIDERS: ATTEND Surgery
DX: K29.50 Unspecified chronic gastritis without bleeding (principal); B96.81 Helicobacter pylori [H. pylori] as the cause of diseases classified elsewhere; K21.9 Gastro-esophageal reflux disease without esophagitis; G43.909 Migraine, unspecified, not intractable, without status migrainosus; J44.9 Chronic obstructive pulmonary disease, unspecified; M79.7 Fibromyalgia; M19.90 Unspecified osteoarthritis, unspecified site; G40.909 Epilepsy, unspecified, not intractable, without status epilepticus; K58.1 Irritable bowel syndrome with constipation; E03.9 Hypothyroidism, unspecified; F41.9 Anxiety disorder, unspecified; F31.9 Bipolar disorder, unspecified; F17.210 Nicotine dependence, cigarettes, uncomplicated; Z79.890 Hormone replacement therapy; Z79.899 Other long term (current) drug therapy; Z91.041 Radiographic dye allergy status; Z91.012 Allergy to eggs; Z88.0 Allergy status to penicillin; Z91.018 Allergy to other foods; Z90.49 Acquired absence of other specified parts of digestive tract; Z98.51 Tubal ligation status; Z85.41 Personal history of malignant neoplasm of cervix uteri; Z86.14 Personal history of Methicillin resistant Staphylococcus aureus infection
CPT/HCPCS: 43239; J2704; 88305; 88342

== ENCOUNTER 2018-08-22 10:09 | Inpatient (IN) | payer MEDICARE, OTHER ==
--- NOTE | 2018-08-22 10:48 | ED ---
General Adult HPI - General Chief complaint: Arrhythmia/Palpitations Stated complaint: tachycardia Time Seen by Provider: 08/22/18 10:10 Source: patient, family, RN notes reviewed Mode of arrival: ambulatory Limitations: no limitations - History of Present Illness Initial comments: This is a 48-year-old female presents emergency Department stating she is a smoker. Patient states the last 10 days she has been coughing and having had a fever. Patient states last night her temperature is 101. Patient states she went to an urgent care facility after having been treated with azithromycin for bronchitis. From the urgent care they stated that she needed to come to the emergency department with her heart rate is 130 beats a minute. Patient states her chest is been hurting for 10 days particularly when she coughs. Patient denies any leg swelling or calf tenderness. Patient denies any abdominal pain patient denies nausea vomiting diarrhea. Denies any syncopal episode. Patient states however she has been lightheaded recently. Patient states this morning to 101 fever prior to going to the urgent care. - Related Data Home Medications Medication Instructions Recorded Confirmed Diazepam [Valium] 10 mg PO TID PRN 08/26/15 08/22/18 Estradiol [Estrace] 1 mg PO HS 07/19/16 08/22/18 carBAMazepine [TEGretol] 400 mg PO HS 01/23/18 08/22/18 Albuterol Inhaler [Ventolin Hfa 1 - 2 puff INHALATION RT-Q6H PRN 06/11/18 Inhaler] Imitrex (Unknown Dose) 1 dose IM DIRECTED PRN 06/11/18 08/22/18 Ziprasidone [Geodon] 60 mg PO HS 08/22/18 08/22/18 Allergies Allergy/AdvReac Type Severity Reaction Status Date / Time Penicillins Allergy Severe Anaphylaxis Verified 08/22/18 11:53 Iodinated Contrast- Oral and Allergy Unknown Rash/Hives Verified 08/22/18 11:53 IV Dye [Iodinated Contrast Media - IV Dye] egg yolk Allergy Unknown Verified 08/22/18 11:53 mustard Allergy Unknown Verified 08/22/18 11:53 Review of Systems ROS Statement: Those systems with pertinent positive or pertinent negative responses have been documented in the HPI. ROS Other: All systems not noted in ROS Statement are negative. Past Medical History Past Medical History: Cancer, COPD, Fibromyalgia, GERD/Reflux, Hypertension, Osteoarthritis (OA), Seizure Disorder Additional Past Medical History / Comment(s): HX CERVICAL CA, MIGRAINES, POSITIVE HPV, FREQUENT CONSTIPATION. LAST SEIZURE 12/26/2015. , H-PYLORI, COMPRESSION FX BACK, LOW THYROID. History of Any Multi-Drug Resistant Organisms: MRSA Date of last positivie culture/infection: NOVEMBER 2012 MDRO Source:: RT ELBOW Past Surgical History: Breast Surgery, Cholecystectomy, Hysterectomy, Orthopedic Surgery, Tonsillectomy, Tubal Ligation Additional Past Surgical History / Comment(s): RT ROTATOR CUFF REPAIR. SHAWANDA HIP SURGERY (INJURY). BREAST AUGMENTATION, LUMP LT NECK, RT ELBOW SURGERY FOR MRSA INFECTION., CARMEN FUNDOPLASTY (11/24/15). EGD and balloon dilatation-12/23/15 , 01/01 2016: Revision of fundoplication, bilateral oophorectomy for ovarian cysts Past Anesthesia/Blood Transfusion Reactions: No Reported Reaction, Family History of Problems w/ Anesthesia Additional Past Anesthesia/Blood Transfusion Reaction / Comment(s): MOTHER= A- FIB WITH ANESTHESIA. Past Psychological History: Anxiety, Bipolar, Depression Smoking Status: Heavy tobacco smoker Past Alcohol Use History: Daily Past Drug Use History: None Reported - Past Family History Father Family Medical History: Hypertension Additional Family Medical History / Comment(s): Father at age 58 most likely due to complications from alcoholism and drug addiction. He also had history of hypertension and glaucoma. Brother(s) Family Medical History: No Reported History Additional Family Medical History / Comment(s): She has one brother that is a recovered alcoholic with no other major medical problems. Sister(s) Additional Family Medical History / Comment(s): Patient has one sister that suffers from depression and anxiety Mother Family Medical History: Cancer, Dementia, Deep Vein Thrombosis (DVT), Hypertension, Pulmonary Embolus Additional Family Medical History / Comment(s): history of corneal transplant, hypertension, diabetes, BREAST CA. Maternal grandmother history of breast cancer General Exam - General Exam Comments Initial Comments: GENERAL: Patient is well-developed and well-nourished. Patient is nontoxic and well- hydrated and is in mild distress. ENT: Neck is soft and supple. No significant lymphadenopathy is noted. Oropharynx is clear. Moist mucous membranes. Neck has full range of motion without eliciting any pain. There is no thyroid enlargement and no masses were felt. EYES: The sclera were anicteric and conjunctiva were pink and moist. Extraocular movements were intact and pupils were equal round and reactive to light. Eyelids were unremarkable. PULMONARY: Unlabored respirations. Good breath sounds bilaterally. No audible rales rhonchi or wheezing was noted. CARDIOVASCULAR: Patient was tachycardic at 130 beats a minute. ABDOMEN: Soft and nontender with normal bowel sounds. No palpable organomegaly was noted. There is no palpable pulsatile mass. SKIN: Skin is clear with no lesions or rashes and otherwise unremarkable. NEUROLOGIC: Patient is alert and oriented x3. Cranial nerves II through XII are grossly intact. Motor and sensory are also intact. Normal speech, volume and content. Symmetrical smile. MUSCULOSKELETAL: Normal extremities with adequate strength and full range of motion. No lower extremity swelling or edema. No calf tenderness. LYMPHATICS: No significant lymphadenopathy is noted PSYCHIATRIC: Normal psychiatric evaluation. Limitations: no limitations Course Vital Signs 08/22/18 08/22/18 10:12 13:00 Temperature 101.9 F H 98.7 F Pulse Rate 79 97 Respiratory 22 20 Rate Blood Pressure 132/88 113/71 O2 Sat by Pulse 94 L 97 Oximetry Medical Decision Making - Medical Decision Making EKG shows sinus tachycardia at 112 bpm MI interval 228 QRSs 86 QT interval 318 QTC is 434. Patient's EKG shows no ST segment elevation or depression no T- wave abnormalities are noted. Chest x-ray shows right-sided infiltrate. CT of the chest shows no PE but bilateral infiltrate. I spoke with some physicians agreed to accept the patient I admitted the patient I wrote admitting orders I continued antibiotics on the floor. - Lab Data Result diagrams: 08/22/18 11:05 08/22/18 11:05 Lab Results 08/22/18 08/22/18 08/22/18 Range/Units 11:05 11:05 11:05 WBC 6.5 (3.8-10.6) k/uL RBC 3.25 L (3.80-5.40) m/uL Hgb 12.1 (11.4-16.0) gm/dL Hct 36.5 (34.0-46.0) % MCV 112.3 H (80.0-100.0) fL MCH 37.3 H (25.0-35.0) pg MCHC 33.2 (31.0-37.0) g/dL RDW 18.1 H (11.5-15.5) % Plt Count 110 L (150-450) k/uL Neutrophils % 88 % Lymphocytes % 9 % Monocytes % 2 % Eosinophils % 1 % Basophils % 0 % Neutrophils # 5.7 (1.3-7.7) k/uL Lymphocytes # 0.6 L (1.0-4.8) k/uL Monocytes # 0.1 (0-1.0) k/uL Eosinophils # 0.1 (0-0.7) k/uL Basophils # 0.0 (0-0.2) k/uL Manual Slide Review Performed Polychromasia Present Poikilocytosis (manual Present Anisocytosis Slight Macrocytosis Marked Stomatocytes Present PT (9.0-12.0) sec INR (<1.2) APTT (22.0-30.0) sec D-Dimer (<0.60) mg/L FEU Sodium 134 L (137-145) mmol/L Potassium 3.8 (3.5-5.1) mmol/L Chloride 100 (98-107) mmol/L Carbon Dioxide 29 (22-30) mmol/L Anion Gap 5 mmol/L BUN 9 (7-17) mg/dL Creatinine 0.61 (0.52-1.04) mg/dL Est GFR (CKD-EPI)AfAm >90 (>60 ml/min/1.73 sqM) Est GFR (CKD-EPI)NonAf >90 (>60 ml/min/1.73 sqM) Glucose 110 H (74-99) mg/dL Plasma Lactic Acid Matthew (0.7-2.0) mmol/L Calcium 9.2 (8.4-10.2) mg/dL Magnesium 1.6 (1.6-2.3) mg/dL Total Bilirubin 2.2 H (0.2-1.3) mg/dL AST 113 H (14-36) U/L ALT 85 H (9-52) U/L Alkaline Phosphatase 187 H (38-126) U/L Total Creatine Kinase 44 (30-135) U/L CK-MB (CK-2) 0.3 (0.0-2.4) ng/mL CK-MB (CK-2) Rel Index 0.7 Troponin I <0.012 (0.000-0.034) ng/mL Total Protein 6.2 L (6.3-8.2) g/dL Albumin 3.5 (3.5-5.0) g/dL Influenza Type A RNA (Not Detectd) Influenza Type B (PCR) (Not Detectd) 08/22/18 08/22/18 08/22/18 Range/Units 11:05 11:05 11:05 WBC (3.8-10.6) k/uL RBC (3.80-5.40) m/uL Hgb (11.4-16.0) gm/dL Hct (34.0-46.0) % MCV (80.0-100.0) fL MCH (25.0-35.0) pg MCHC (31.0-37.0) g/dL RDW (11.5-15.5) % Plt Count (150-450) k/uL Neutrophils % % Lymphocytes % % Monocytes % % Eosinophils % % Basophils % % Neutrophils # (1.3-7.7) k/uL Lymphocytes # (1.0-4.8) k/uL Monocytes # (0-1.0) k/uL Eosinophils # (0-0.7) k/uL Basophils # (0-0.2) k/uL Manual Slide Review Polychromasia Poikilocytosis (manual Anisocytosis Macrocytosis Stomatocytes PT 9.3 (9.0-12.0) sec INR 0.9 (<1.2) APTT 25.7 (22.0-30.0) sec D-Dimer 0.89 H (<0.60) mg/L FEU Sodium (137-145) mmol/L Potassium (3.5-5.1) mmol/L Chloride (98-107) mmol/L Carbon Dioxide (22-30) mmol/L Anion Gap mmol/L BUN (7-17) mg/dL Creatinine (0.52-1.04) mg/dL Est GFR (CKD-EPI)AfAm (>60 ml/min/1.73 sqM) Est GFR (CKD-EPI)NonAf (>60 ml/min/1.73 sqM) Glucose (74-99) mg/dL Plasma Lactic Acid Matthew 2.3 H* (0.7-2.0) mmol/L Calcium (8.4-10.2) mg/dL Magnesium (1.6-2.3) mg/dL Total Bilirubin (0.2-1.3) mg/dL AST (14-36) U/L ALT (9-52) U/L Alkaline Phosphatase (38-126) U/L Total Creatine Kinase (30-135) U/L CK-MB (CK-2) (0.0-2.4) ng/mL CK-MB (CK-2) Rel Index Troponin I (0.000-0.034) ng/mL Total Protein (6.3-8.2) g/dL Albumin (3.5-5.0) g/dL Influenza Type A RNA Not Detected (Not Detectd) Influenza Type B (PCR) Not Detected (Not Detectd) Disposition Clinical Impression: Pneumonia Disposition: ADMITTED IP TO THIS HOSP Referrals: Govind Covington MD [Primary Care Provider] - 1-2 days Time of Disposition: 13:43
[2018-08-22] MEDS ORDERED: IBUPROFEN 600 MG TAB PO STA (11:17)
[2018-08-22] MEDS ORDERED: ACETAMINOPHEN TAB 500 MG TAB PO STA (11:17)
[2018-08-22 11:31] LABS: Anisocytosis Slight; Basophils % (A) 0 %; Eosinophils # (A) 0.1 k/uL (0-0.7); Eosinophils % (A) 1 %; HCT 36.5 % (34.0-46.0); HGB 12.1 gm/dL (11.4-16.0); Lymphocytes # (A) 0.6 k/uL (1.0-4.8); Lymphocytes % (A) 9 %; MCH 37.3 pg (25.0-35.0); MCHC 33.2 g/dL (31.0-37.0); MCV 112.3 fL (80.0-100.0); Macrocytosis Marked; Mean Platelet Volume 7.7; Monocytes # (A) 0.1 k/uL (0-1.0); Monocytes % (A) 2 %; Neutrophils # (A) 5.7 k/uL (1.3-7.7); Neutrophils % (A) 88 %; Platelet Count 110 k/uL (150-450); RBC 3.25 m/uL (3.80-5.40); RDW 18.1 % (11.5-15.5); WBC 6.5 k/uL (3.8-10.6)
[2018-08-22 11:40] LABS: ALT 85 U/L (9-52); AST 113 U/L (14-36); Albumin 3.5 g/dL (3.5-5.0); Alkaline Phosphatase 187 U/L (38-126); Anion Gap 5 mmol/L; Blood Urea Nitrogen 9 mg/dL (7-17); Calcium 9.2 mg/dL (8.4-10.2); Carbon Dioxide 29 mmol/L (22-30); Chloride 100 mmol/L (98-107); Glucose 110 mg/dL (74-99); Magnesium 1.6 mg/dL (1.6-2.3); Potassium 3.8 mmol/L (3.5-5.1); Sodium 134 mmol/L (137-145); Total Bilirubin 2.2 mg/dL (0.2-1.3); Total Protein 6.2 g/dL (6.3-8.2)
[2018-08-22 11:49] LABS: INR 0.9 (<1.2); Partial Thromboplastin Time 25.7 sec (22.0-30.0); Prothrombin Time 9.3 sec (9.0-12.0)
[2018-08-22 11:52] LABS: Poikilocytosis (M) Present; Stomatocytes Present
--- NOTE | 2018-08-22 11:52 | XR ---
EXAMINATION TYPE: XR chest 2V DATE OF EXAM: 08/22/2018 COMPARISON: 07/04/2017 HISTORY: Chest pain TECHNIQUE: Frontal and lateral views of the chest are obtained. FINDINGS: Right basilar infiltrate noted. Correlate for developing pneumonia. No evidence for pneumothorax. No pleural effusion. The cardiac silhouette size is within normal limits. The osseous structures are grossly intact. IMPRESSION: 1. Right basilar infiltrate noted. Correlate for developing pneumonia.
[2018-08-22 11:53] LABS: Polychromasia Present
[2018-08-22 11:56] LABS: D-Dimer 0.89 mg/L FEU (<0.60)
[2018-08-22 11:58] LABS: Creatine Kinase 44 U/L (30-135)
[2018-08-22 12:12] LABS: Creatine Kinase MB 0.3 ng/mL (0.0-2.4); Troponin I <0.012 ng/mL (0.000-0.034)
[2018-08-22] MEDS ORDERED: cefTRIAXone 2,000 MG in SODIUM CHLORIDE 0.9% 100 ML IVPB STA (12:21)
[2018-08-22] MEDS ORDERED: LEVOFLOXACIN 750MG-D5W PMX 750 MG in DEXTROSE/WATER 1 150ML.BAG IVPB STA (12:25)
[2018-08-22] MEDS ORDERED: FAMOTIDINE 20 MG/2 ML VIAL IV STA (12:28)
[2018-08-22] MEDS ORDERED: diphenhydrAMINE 50 MG/ML 1 ML VIAL IVP STA (12:28)
[2018-08-22] MEDS ORDERED: methylPREDNISolone SOD SUCCI 125 MG/2 ML VIAL IV STA (12:28)
--- NOTE | 2018-08-22 13:29 | CT ---
EXAMINATION TYPE: CT chest angio for PE DATE OF EXAM: 08/22/2018 COMPARISON: HISTORY: Tackycardia, chest pain CT DLP: 217 mGycm CONTRAST: CT chest with contrast and 3D reconstruction with MIP imaging is performed with IV Contrast, patient injected with 100, wasted 17 mL of Isovue 370. Contrast-enhanced CT of the chest was performed through the course of the pulmonary arteries with emiliano g and mediastinal window settings submitted. 3D reconstruction with MIP imaging was also performed. PULMONARY ARTERIES: The pulmonary arteries and their major tributaries are patent. I do not see gabi dence for sizable filling defect to suggest pulmonary embolic process. LUNGS: Moderate scattered groundglass infiltrates are seen throughout both lung kahn which may refl ect pneumonitis or developing pneumonia. Moderate emphysematous change right upper lobe. Nonspecific nodularity left apex measuring less than 5 mm. Follow-up advised. MEDIASTINUM: Thoracic aorta is of normal caliber,however, evaluation is limited given timing of the contrast bolus. If there is concern for thoracic aortic pathology consider AMY. Correlate clinicall y . The heart is not enlarged. No evidence for mediastinal mass. No mediastinal lymph nodes greater than 1cm. HILAR STRUCTURES: No evidence for mass. No hilar lymph nodes greater than 1 cm. UPPER ABDOMEN: Hepatomegaly with underlying fatty hepatic infiltration. IMPRESSION: 1. No evidence for Pulmonary embolism at this time. 2.Moderate scattered groundglass infiltrates are seen throughout both lung kahn which may reflect p neumonitis or developing pneumonia.
[2018-08-22] MEDS ORDERED: SODIUM CHLORIDE 0.9% 1,000 ML IV ONE (13:35)
[2018-08-22] MEDS ORDERED: PNEUMONIA PROTOCOL UTILIZED 1 EACH MISC PO PRN (13:46)
[2018-08-22] MEDS ORDERED: NALOXONE 0.4 MG/ML 1 ML VIAL IV PRN (14:21)
[2018-08-22] MEDS ORDERED: LORazepam 2 MG/ML INJ IV PRN ×3 (16:36)
[2018-08-22] MEDS ORDERED: THIAMINE 100 MG/ML 2 ML VIAL IM STA (16:36)
--- NOTE | 2018-08-22 16:45 | P.HPIM ---
History of Present Illness H&P Date: 08/22/18 Chief Complaint: Pneumonia 48-year-old female with past medical history of seizure disorder, bipolar disorder, GERD, heavy alcohol abuse, hypothyroidism presents to the ED for fever and cough. Patient states that she had experienced a dry cough that started a few days before 08/09/2018. Patient states that she went to go see her PCP Dr. Covington, got prescribed Z-Jose Antonio for 5 days. Patient reports that the antibiotic did not help. Patient started to experience headaches, fever/chills, shortness of breath with exertion and a sore throat over the next week that prompted her to go to the urgent care clinic today. At the clinic, she was noted to have a T-max of 101F. She was also noted to be tachycardic with a heart rate of 130. She was advised to go to the emergency room for further evaluation. Of note, patient complains of chronic headaches, related to migraines. She also complains of chest pain but only when she coughs. Patient also reports diarrhea daily, but attributes this to IBS. She denies any lower extremity edema, nausea, vomiting, palpitations, changes in urination or bowel habits. No changes in appetite or weight. Of note, patient reports smoking 1-1/2 packs of cigarettes a day daily for the past 30 years. Of note, patient reports drinking a fifth of hard liquor daily. She endorses withdrawal symptoms when she does not drink. Her last drink was yesterday. With regard to her seizures, she's had a history of seizures since she was 10 years old. Her last seizure was last year. In the ED, patient was noted to be febrile at 101.9F. Her oxygen saturation was 94% on room air. CBCs showed no leukocytosis. D-dimer was slightly elevated at 0.89. CMP showed a sodium of 134, glucose of 110, total bilirubin of 2.2, AST of 113, ALTs of 85 and ALK of 187. Lactic acid was elevated at 2.3. Initial troponin was less than 0.012, EKG showing sinus tachycardia. Chest x-ray showed a right basilar infiltrate. CTA ruled out pulmonary embolus , but showed bilateral pneumonia. Patient is admitted for treatment and pneumonia, failed outpatient therapy. Review of Systems All systems: negative Past Medical History Past Medical History: Cancer, COPD, Fibromyalgia, GERD/Reflux, Hypertension, Osteoarthritis (OA), Seizure Disorder Additional Past Medical History / Comment(s): HX CERVICAL CA(sx only), MIGRAINES , POSITIVE HPV, FREQUENT CONSTIPATION- last bm 08-21-18. LAST SEIZURE summer 2016. , H-PYLORI, COMPRESSION FX BACK, LOW THYROID. History of Any Multi-Drug Resistant Organisms: MRSA Date of last positivie culture/infection: NOVEMBER 2012 MDRO Source:: RT ELBOW Past Surgical History: Breast Surgery, Cholecystectomy, Hysterectomy, Orthopedic Surgery, Tonsillectomy, Tubal Ligation Additional Past Surgical History / Comment(s): RT ROTATOR CUFF REPAIR. SHAWANDA HIP SURGERY (INJURY). BREAST AUGMENTATION, LUMP LT NECK removed/bx benign, RT ELBOW SURGERY FOR MRSA INFECTION.CARMEN FUNDOPLASTY (11/24/15). EGD and balloon dilatation-12/23/15, 01/01 2016: Revision of fundoplication, bilateral oophorectomy for ovarian cysts,ended up with total hysterectomy Past Anesthesia/Blood Transfusion Reactions: No Reported Reaction, Family History of Problems w/ Anesthesia Additional Past Anesthesia/Blood Transfusion Reaction / Comment(s): MOTHER= A- FIB WITH ANESTHESIA. Smoking Status: Current every day smoker - Past Family History Father Family Medical History: Hypertension Additional Family Medical History / Comment(s): Father at age 58 most likely due to complications from alcoholism and drug addiction. He also had history of hypertension and glaucoma. Brother(s) Family Medical History: No Reported History Additional Family Medical History / Comment(s): She has one brother that is a recovered alcoholic with no other major medical problems. Sister(s) Additional Family Medical History / Comment(s): Patient has one sister that suffers from depression and anxiety Mother Family Medical History: Cancer, Dementia, Deep Vein Thrombosis (DVT), Hypertension, Pulmonary Embolus Additional Family Medical History / Comment(s): history of corneal transplant, hypertension, diabetes, BREAST CA. Maternal grandmother history of breast cancer Medications and Allergies Home Medications Medication Instructions Recorded Confirmed Type Diazepam [Valium] 10 mg PO TID PRN 08/26/15 08/22/18 History Estradiol [Estrace] 1 mg PO HS 07/19/16 08/22/18 History Albuterol Inhaler [Ventolin Hfa 1 - 2 puff INHALATION RT-Q6H PRN 06/11/18 History Inhaler] Imitrex (Unknown Dose) 1 dose IM DIRECTED PRN 06/11/18 08/22/18 History Ziprasidone [Geodon] 60 mg PO HS 08/22/18 08/22/18 History carBAMazepine [TEGretol XR] 400 mg PO HS 08/22/18 08/22/18 History Allergies Allergy/AdvReac Type Severity Reaction Status Date / Time Penicillins Allergy Severe Anaphylaxis Verified 08/22/18 11:53 Iodinated Contrast- Oral and Allergy Unknown Rash/Hives Verified 08/22/18 11:53 IV Dye [Iodinated Contrast Media - IV Dye] egg yolk Allergy Unknown Verified 08/22/18 11:53 mustard Allergy Unknown Verified 08/22/18 11:53 Physical Exam Vitals: Vital Signs Temp Pulse Resp BP Pulse Ox 08/22/18 15:00 98.5 F 82 16 117/83 98 08/22/18 13:00 98.7 F 97 20 113/71 97 08/22/18 10:12 101.9 F H 79 22 132/88 94 L Intake and Output 08/22/18 08/22/18 08/22/18 06:59 14:59 22:59 Other: Weight 63.049 kg General: [non toxic], [no distress], [appears at stated age] Derm: [warm], [dry] Head: [atraumatic], [normocephalic], [symmetric] Eyes: [EOMI], [no lid lag], [anicteric sclera] Mouth: [no lip lesion], [mucus membranes moist] Cardiovascular: [S1S2 reg], [tachycardic], [positive DP pulse bilateral] Lungs: [CTA bilateral], [no rhonchi, no rales] , [no accessory muscle use] Abdominal: [soft], [ nontender to palpation], [no guarding], [no appreciable organomegaly] Ext: [no gross muscle atrophy], [no edema], [no contractures] Neuro: [ CN II-XI grossly intact], [no focal neuro deficits] Psych: [Alert], [oriented], [appropriate affect] Results CBC & Chem 7: 08/22/18 11:05 08/22/18 11:05 Labs: Abnormal Lab Results - Last 24 Hours (Table) 08/22/18 08/22/18 08/22/18 Range/Units 11:05 11:05 11:05 RBC 3.25 L (3.80-5.40) m/uL MCV 112.3 H (80.0-100.0) fL MCH 37.3 H (25.0-35.0) pg RDW 18.1 H (11.5-15.5) % Plt Count 110 L (150-450) k/uL Lymphocytes # 0.6 L (1.0-4.8) k/uL D-Dimer 0.89 H (<0.60) mg/L FEU Sodium 134 L (137-145) mmol/L Glucose 110 H (74-99) mg/dL Plasma Lactic Acid Matthew (0.7-2.0) mmol/L Total Bilirubin 2.2 H (0.2-1.3) mg/dL AST 113 H (14-36) U/L ALT 85 H (9-52) U/L Alkaline Phosphatase 187 H (38-126) U/L Total Protein 6.2 L (6.3-8.2) g/dL 08/22/18 Range/Units 11:05 RBC (3.80-5.40) m/uL MCV (80.0-100.0) fL MCH (25.0-35.0) pg RDW (11.5-15.5) % Plt Count (150-450) k/uL Lymphocytes # (1.0-4.8) k/uL D-Dimer (<0.60) mg/L FEU Sodium (137-145) mmol/L Glucose (74-99) mg/dL Plasma Lactic Acid Matthew 2.3 H* (0.7-2.0) mmol/L Total Bilirubin (0.2-1.3) mg/dL AST (14-36) U/L ALT (9-52) U/L Alkaline Phosphatase (38-126) U/L Total Protein (6.3-8.2) g/dL Thrombosis Risk Factor Assmnt - Choose All That Apply Any of the Below Risk Factors Present?: Yes Each Factor Represents 1 point: Age 41-60 years, Oral contraceptives or hormone replacement therapy Other Risk Factors: Yes Thrombosis Risk Factor Assessment Total Risk Factor Score: 2 Thrombosis Risk Factor Assessment Level: Low Risk Assessment and Plan Assessment: Assessment and Plan 1. Pneumonia: Likely reason for cough. Patient has Tmax 101.9 with HR ~ 130 as per ED and no leukocytosis. Her Lactic acid was elevated at 2.3. Her blood pressure has been maintaining so we are not concerned for sepsis. Chest x-ray shows right basilar infiltrate. Her D-dimer was slightly elevated at 0.89 which was concerning for PE, but Chest CTA showed no pulmonary embolus and confirmed bilateral pneumonia. Influenza panel negative. Tylenol as needed for fever. Continue levofloxacin 750 mg IV daily. DuoNeb Q6H PRN for SOB/ wheezing. O2 per nasal cannula to maintain an oxygen saturation greater than 92 %. FU BCx, Sputum Cx, CXR in the morning, repeat Lactic acid 2. Alcohol abuse: Patient admits to drinking a fifth of vodka daily, last drink was yesterday. She is high risk for alcohol withdrawal. CIWA protocol. Ativan IV PRN for CIWA > 8. Continue Thiamine 100 mg PO BID. 3. Lactic acidosis: Lactic acid 2.3 likely related to heavy alcohol consumption. Less concern for sepsis. Given 1L bolus in the ED. Continue NS at 100 cc/h. FU repeat Lactic acid 4. Macrocytosis: MCV 112.3. Multifactorial, likely related to carbamazepine use along with heavy alcohol consumption. FU B12/Folate, TSH 5. Hyperbilirubinemia: T. Bili 2.2, AST 113, ALT 85, ALK 187. Likely related to heavy alcohol consumption. Continue NS at 100 cc/h. Watch long acting benzodiazepine when treating alcohol withdrawal. 6. Bipolar disorder: Stable. Continue Geodon 60 mg PO QHS. 7. Seizure disorder: Stable. Continue Carbamazepine 400 mg PO QHS. 8. DVT/GI Prophylaxis: SCD boots only.
[2018-08-22] MEDS: SODIUM CHLORIDE 0.9% 1,000 ML IV SCH (17:06)
[2018-08-22] MEDS ORDERED: carBAMazepine 200 MG TAB PO SCH (21:00)
[2018-08-22] MEDS: carBAMazepine 400 MG TAB.ER.12H PO SCH (21:58)
[2018-08-22] MEDS: ZIPRASIDONE 60 MG CAP PO SCH (22:19)
[2018-08-23] MEDS ORDERED: ONDANSETRON 4 MG/2 ML VIAL IVP PRN (00:05)
[2018-08-23] MEDS: SODIUM CHLORIDE 0.9% 1,000 ML IV SCH (06:16)
--- NOTE | 2018-08-23 07:39 | XR ---
EXAMINATION TYPE: XR chest 2V DATE OF EXAM: 08/23/2018 COMPARISON: Chest x-ray and CT chest from yesterday. HISTORY: Persistent cough and pneumonia. TECHNIQUE: Frontal and lateral views of the chest are obtained. Background chronic emphysematous change seen better on recent CT with persistent bilateral lower lung opacities. No large pleural effusion or pneumothorax is seen bilaterally. Cardiac silhouette size is stable and within normal limits. Overlying breast implants are redemonstrated. The osseous structure s are intact. IMPRESSION: Persistent multilobar bilateral multifocal acute infiltrates and/or edema most prominent in the lower lungs.
[2018-08-23] MEDS: IPRATROPIUM-ALBUTEROL 3 ML NEB INHALATION PRN ×4 (08:42→19:34)
[2018-08-23] MEDS ORDERED: BENZONATATE 100 MG CAP PO STA (09:26)
--- NOTE | 2018-08-23 09:28 | P.PN ---
Subjective Progress Note Date: 08/23/18 Principal diagnosis: Pneumonia Patient was seen and examined. No acute events overnight. Patient complains of persistent dry cough. She states that the cough is not allowing her to take deep inhalations. Cough is associated with back pain. Patient reports that DuoNeb treatments are minimally helping. Requesting medication for cough. Also complained of chills tonight. Denies any chest pain. Objective - Vital Signs Vital signs: Vital Signs Temp 98.8 F 08/23/18 08:47 Pulse 92 08/23/18 08:54 Resp 14 08/23/18 08:49 BP 107/70 08/23/18 08:47 Pulse Ox 95 08/23/18 08:47 Intake & Output 08/22/18 08/23/18 08/23/18 18:59 06:59 18:59 Weight 63.049 kg Other: Voiding Method Toilet Toilet Toilet # Voids 2 - Exam General: [non toxic], [no distress], [appears at stated age] Derm: [warm], [dry] Head: [atraumatic], [normocephalic], [symmetric] Eyes: [EOMI], [no lid lag], [anicteric sclera] Mouth: [no lip lesion], [mucus membranes moist] Cardiovascular: [S1S2 reg], [tachycardic], [positive DP pulse bilateral] Lungs: [CTA bilateral], [no rhonchi, no rales] , [no accessory muscle use] Abdominal: [soft], [ nontender to palpation], [no guarding], [no appreciable organomegaly] Ext: [no gross muscle atrophy], [no edema], [no contractures] Neuro: [no focal neuro deficits] Psych: [Alert], [oriented], [appropriate affect] - Labs CBC & Chem 7: 08/22/18 11:05 08/22/18 11:05 Labs: Abnormal Lab Results - Last 24 Hours (Table) 08/22/18 08/22/18 08/22/18 Range/Units 11:05 11:05 11:05 RBC 3.25 L (3.80-5.40) m/uL MCV 112.3 H (80.0-100.0) fL MCH 37.3 H (25.0-35.0) pg RDW 18.1 H (11.5-15.5) % Plt Count 110 L (150-450) k/uL Lymphocytes # 0.6 L (1.0-4.8) k/uL D-Dimer 0.89 H (<0.60) mg/L FEU Sodium 134 L (137-145) mmol/L Glucose 110 H (74-99) mg/dL Plasma Lactic Acid Matthew (0.7-2.0) mmol/L Total Bilirubin 2.2 H (0.2-1.3) mg/dL AST 113 H (14-36) U/L ALT 85 H (9-52) U/L Alkaline Phosphatase 187 H (38-126) U/L Total Protein 6.2 L (6.3-8.2) g/dL 08/22/18 Range/Units 11:05 RBC (3.80-5.40) m/uL MCV (80.0-100.0) fL MCH (25.0-35.0) pg RDW (11.5-15.5) % Plt Count (150-450) k/uL Lymphocytes # (1.0-4.8) k/uL D-Dimer (<0.60) mg/L FEU Sodium (137-145) mmol/L Glucose (74-99) mg/dL Plasma Lactic Acid Matthew 2.3 H* (0.7-2.0) mmol/L Total Bilirubin (0.2-1.3) mg/dL AST (14-36) U/L ALT (9-52) U/L Alkaline Phosphatase (38-126) U/L Total Protein (6.3-8.2) g/dL Assessment and Plan Assessment: Assessment and Plan 1. Pneumonia: Likely reason for cough. Tmax 101.9 with HR ~ 130 yesterday, no fever since with HR improving. Her Lactic acid was elevated at 2.3, which resolved this morning. Her blood pressure has been maintaining so we are not concerned for sepsis. Chest x-ray shows right basilar infiltrate, re-confirmed this morning on CXR. Her D-dimer was slightly elevated at 0.89 which was concerning for PE, but Chest CTA showed no pulmonary embolus and confirmed bilateral pneumonia. Influenza panel negative. Tylenol as needed for fever. Continue levofloxacin 750 mg IV daily. DuoNeb Q6H PRN for SOB/wheezing. O2 per nasal cannula to maintain an oxygen saturation greater than 92%. I will add Tessalon Perles for cough as needed. FU BCx, Sputum Cx, Echocardiogram 2. Alcohol abuse: Patient admits to drinking a fifth of vodka daily, last drink was yesterday. She is high risk for alcohol withdrawal. CIWA protocol. Ativan IV PRN for CIWA > 8. Continue Thiamine 100 mg PO BID. 3. Macrocytosis: MCV 112.3. Multifactorial, likely related to carbamazepine use along with heavy alcohol consumption. TSH is within normal limits. FU B12/ Folate 4. Hyperbilirubinemia: T. Bili 2.2, AST 113, ALT 85, ALK 187. Likely related to heavy alcohol consumption. Discontinue IVF. Watch long acting benzodiazepine when treating alcohol withdrawal. 5. Bipolar disorder: Stable. Continue Geodon 60 mg PO QHS. 6. Seizure disorder: Stable. Continue Carbamazepine 400 mg PO QHS. 7. DVT/GI Prophylaxis: SCD boots only. Resolved; Lactic acidosis We will continue current treatment. Chest x-ray not improved. Will add medication for cough. Patient is pending clinical improvement. Likely discharge in 1-2 days.
[2018-08-23] MEDS: THIAMINE 100 MG TAB PO SCH ×2 (10:58→16:59)
[2018-08-23] MEDS: LORazepam 1 MG TAB PO PRN (11:04)
[2018-08-23 12:01] LABS: Folate, Serum 4.3 ng/mL
[2018-08-23] MEDS: ACETAMINOPHEN TAB 325 MG TAB PO PRN ×3 (12:02→23:29)
--- NOTE | 2018-08-23 12:10 | ECHOF ---
Referral Reason:SOB MEASUREMENTS -------- HEIGHT: 180.3 cm WEIGHT: 63.0 kg BP: 107/70 RVIDd: 2.6 cm (< 3.3) IVSd: 1.1 cm (0.6 - 1.1) LVIDd: 4.4 cm (3.9 - 5.3) LVPWd: 1.1 cm (0.6 - 1.1) IVSs: 1.4 cm LVIDs: 3.4 cm LVPWs: 1.5 cm LA Diam: 2.9 cm (2.7 - 3.8) Ao Diam: 3.0 cm (2.0 - 3.7) AV Cusp: 1.9 cm (1.5 - 2.6) LA Diam: 3.1 cm (2.7 - 3.8) EPSS: 0.5 cm MV E Merritt: 0.96 m/s MV DecT: 145 ms MV A Merritt: 0.77 m/s MV E/A Ratio: 1.24 RAP: 5.00 mmHg RVSP: 16.38 mmHg MV EF SLOPE: 136.58 mm/s (70 - 150) MV EXCURSION: 1.79 cm (> 18.000) FINDINGS -------- Sinus rhythm. Resting tachycardia (HR>100bpm). This was a technically adequate study. Pt. Has Breast inplants The left ventricular size is normal. There is borderline concentric left ventricular hypertrophy. Overall left ventricular systolic function is normal with, an EF between 55 - 60 %. The right ventricle is normal in size and function. Normal LA size by volume 22+/-6 ml/m2. The right atrium is normal in size. The aortic valve is trileaflet, and appears structurally normal. No aortic stenosis or regurgitation. The mitral valve is normal. Mild mitral regurgitation is present. Trace tricuspid regurgitation present. Right ventricular systolic pressure is normal at < 35 mmHg. The right ventricular systolic pressure, as measured by Doppler, is 16.38mmHg. Trace/mild (physiologic) pulmonic regurgitation. The aortic root size is normal. Normal inferior vena cava with normal inspiratory collapse consistent with estimated right atrial pre ssure of 5 mmHg. There is no pericardial effusion. CONCLUSIONS -------- 1. Sinus rhythm. 2. Resting tachycardia (HR>100bpm). 3. This was a technically adequate study. 4. Pt. Has Breast inplants 5. The left ventricular size is normal. 6. There is borderline concentric left ventricular hypertrophy. 7. Overall left ventricular systolic function is normal with, an EF between 55 - 60 %. 8. Normal LA size by volume 22+/-6 ml/m2. 9. The aortic valve is trileaflet, and appears structurally normal. No aortic stenosis or regurgitati on. 10. Mild mitral regurgitation is present. 11. Trace tricuspid regurgitation present. 12. Right ventricular systolic pressure is normal at < 35 mmHg. 13. Trace/mild (physiologic) pulmonic regurgitation. 14. The aortic root size is normal. 15. There is no pericardial effusion. PLASTIC MOLDER: Jerry Hallman RDCS
[2018-08-23] MEDS ORDERED: LEVOFLOXACIN 750MG-D5W PMX 750 MG in DEXTROSE/WATER 1 150ML.BAG IVPB SCH (14:00)
[2018-08-23] MEDS: ZIPRASIDONE 60 MG CAP PO SCH (20:15)
[2018-08-23] MEDS: carBAMazepine 400 MG TAB.ER.12H PO SCH (20:15)
[2018-08-23] MEDS: BENZONATATE 100 MG CAP PO PRN (21:08)
[2018-08-24] MEDS: LORazepam 1 MG TAB PO PRN ×2 (02:14→12:16)
[2018-08-24] MEDS: IPRATROPIUM-ALBUTEROL 3 ML NEB INHALATION PRN ×3 (02:49→11:17)
[2018-08-24] MEDS: ACETAMINOPHEN TAB 325 MG TAB PO PRN (04:53)
[2018-08-24] MEDS ORDERED: guaiFENesin SYRUP 100MG/5ML 200 MG/10 ML CUP PO ONE (05:30)
[2018-08-24] MEDS: LEVOFLOXACIN 750 MG TAB PO SCH (09:14)
[2018-08-24 09:36] LABS: Anisocytosis Slight; HCT 29.5 % (34.0-46.0); MCH 38.5 pg (25.0-35.0); MCHC 33.2 g/dL (31.0-37.0); MCV 115.9 fL (80.0-100.0); Macrocytosis Marked; Mean Platelet Volume 8.6; RBC 2.54 m/uL (3.80-5.40); RDW 18.1 % (11.5-15.5); WBC 7.7 k/uL (3.8-10.6)
[2018-08-24 09:38] LABS: ALT 42 U/L (9-52); AST 47 U/L (14-36); Albumin 2.7 g/dL (3.5-5.0); Alkaline Phosphatase 125 U/L (38-126); Anion Gap 5 mmol/L; Blood Urea Nitrogen 7 mg/dL (7-17); Calcium 8.8 mg/dL (8.4-10.2); Carbon Dioxide 23 mmol/L (22-30); Chloride 111 mmol/L (98-107); Glucose 162 mg/dL (74-99); Potassium 3.3 mmol/L (3.5-5.1); Sodium 139 mmol/L (137-145); Total Bilirubin 1.3 mg/dL (0.2-1.3); Total Protein 5.3 g/dL (6.3-8.2)
[2018-08-24 09:39] LABS: HGB 9.8 gm/dL (11.4-16.0)
[2018-08-24 10:23] LABS: Platelet Count 77 k/uL (150-450)
[2018-08-24] MEDS: THIAMINE 100 MG TAB PO SCH ×2 (10:52→17:31)
[2018-08-24] MEDS: HYDROcodone/APAP 5-325MG 1 EACH TAB PO PRN (10:52)
[2018-08-24] MEDS: IPRATROPIUM-ALBUTEROL 3 ML NEB INHALATION SCH ×3 (11:17→19:34)
[2018-08-24] MEDS: methylPREDNISolone SOD SUCCI 125 MG/2 ML VIAL IV SCH ×3 (12:09→23:48)
[2018-08-24] MEDS: POTASSIUM CHLORIDE ER 20 MEQ TAB.ER PO SCH ×2 (12:10→13:48)
[2018-08-24] MEDS: BENZONATATE 100 MG CAP PO PRN (12:10)
[2018-08-24] MEDS: SODIUM CHLORIDE 0.9% 1,000 ML IV SCH ×2 (12:11→21:11)
--- NOTE | 2018-08-24 16:26 | CONS ---
CONSULTATION DATE OF CONSULTATION: 08/24/2018 This is a 48-year-old female who states that for the last 10 days to 2 weeks she has been having a respiratory illness. She apparently was seen by her family doctor, Dr. Covington, and/or his nurse practitioner. The patient states that she was receiving some azithromycin and maybe a steroid pack, but did not improve. Her symptoms include chest congestion coughing, fever, chills and some minimal phlegm production. The patient states that she really has not improved, and that is why she ended up coming to the emergency department. In addition, she had an elevated heart rate of 130 beats per minute. She had chest heaviness and congestion. She was having chest pain when she coughed. She had a chest x-ray which showed some bibasilar infiltrates and a CT scan which confirmed diffuse multilobar, primarily basilar, pneumonia. She denies any abdominal pain. There is no nausea, vomiting or diarrhea. She denies any other complaints, although she did have a fever up to 101 degrees. Currently the patient is resting relatively comfortably. She is on antibiotics. She is a heavy smoker. She has been smoking for a number of years -- more than 30 years or so. HOME MEDICATIONS: Her home medications include: 1. Valium. 2. Esterase. 3. Tegretol. 4. Albuterol. 5. Imitrex. 6. Geodon. ALLERGIES: ALLERGIES INCLUDE: 1. PENICILLIN. 2. IV DYES. 3. EGG YOLK. 4. MUSTARD. MEDICAL HISTORY: Medical history includes: 1. Chronic obstructive lung disease, although she has never seen a lung doctor. 2. Fibromyalgia. 3. GERD. 4. Hypertension. 5. DJD. 6. Seizure disorder. 7. Cervical cancer. 8. Migraine cephalgia. 9. Positive HPV infection. 10.Frequent constipation. 11.H pylori infection. 12.She has also had a history of compression fracture. SURGICAL HISTORY: Surgical history includes: 1. Breast surgery. 2. Cholecystectomy. 3. Hysterectomy. 4. Orthopedic procedures. These are listed in the consultation by the ER physician. 5. Tubal ligation. 6. Tonsillectomy. SOCIAL HISTORY: Positive for ongoing tobacco use. FAMILY HISTORY: Positive for hypertension, drug addiction, alcohol abuse, glaucoma, as well as pulmonary embolism, DVT, cancer and dementia. REVIEW OF SYSTEMS: CONSTITUTIONAL: Fever. NEUROLOGIC: Negative. HEENT: Negative. CARDIOVASCULAR: Rapid heart beat up to 130 beats/minute. PULMONARY: Chest congestion, shortness of breath, tightness in her chest. Pain in the chest with cough. Occasional phlegm production. Shortness of breath and wheezing. GI: Negative. : Negative. RHEUMATOLOGIC: Negative. IMMUNOLOGIC: Negative. ENDOCRINOLOGIC: Negative. DERMATOLOGIC: Negative. PHYSICAL EXAMINATION: Current vital signs are reviewed. Temperature is 99.3, heart rate 90, respiratory rate 18. Blood pressure 95/61, mean 72. Saturations on 2 L are 92%. Appears no acute distress. HEENT examination is grossly unremarkable. Mucous membranes are moist. No oral lesions. Teeth are in poor repair. NECK: Supple. Full range of motion. No adenopathy or thyromegaly. Cardiovascular examination reveals tachycardia. Heart rate about 120. S1, S2 normal. No S3, S4. No murmur. LUNGS: Coarse inspiratory and expiratory rhonchi. There are some crackles at the bases. She cannot take a deep breath without coughing. Breath sounds are equal bilaterally but diminished throughout. Some expiratory wheezes are noted as well. They are high-pitched. ABDOMEN: Soft. Bowel sounds are heard. There are no masses or tenderness. Extremities are intact. No cyanosis, clubbing or edema. SKIN: Without rash. Neurologic examination is brief but non-focal. LAB DATA: Reviewed. White count 7.7, hemoglobin 9.8, hematocrit 29.5, platelet count is 77,000. PT, INR, PTT normal. D-dimer is 0.89. Sodium 139, potassium 3.3, chloride 111, CO2 23. Lactic acid was initially 2.3, down to 1.0. Liver function tests showed initially a bilirubin of 2.28, AST 113, ALT 85, alkaline phosphatase 187; all improved. Influenza studies were negative. TSH was in the normal range. A chest x-ray done on 08/22/2018, which is the day of admission in the emergency department, shows some right basilar infiltrates. A follow-up chest x-ray done on 08/23/2018 shows bilateral and multilobar infiltrates. In addition, a chest CT done on 08/22/2018 looking for pulmonary embolism was negative for PE but did show evidence of moderate scattered ground-glass infiltrates seen throughout both lungs, most consistent with pneumonitis or developing pneumonia. Microbiology is currently negative. Medications are reviewed. From the pulmonary standpoint, the patient is on: 1. Tessalon Perles. 2. Pulmicort 1 mg twice a day. 3. Formoterol twice a day. 4. Robitussin. 5. DuoNeb. 6. Levaquin. 7. Solu-Medrol 60 mg q.6. 8. Some other basic medications, including fluids. ASSESSMENT: 1. Bilateral community-acquired pneumonia in a patient who likely has underlying chronic obstructive pulmonary disease. 2. History of heavy and ongoing tobacco use; rule out chronic obstructive pulmonary disease. 3. Chronic obstructive pulmonary disease exacerbation. 4. History of fibromyalgia. 5. History of gastroesophageal reflux disease. 6. History of hypertension. 7. History of degenerative joint disease. 8. History of seizure disorder. 9. History of migraine cephalgia. 10.History of cervical cancer. 11.History of chronic constipation. 12.History of Helicobacter pylori infection. 13.Chronic alcohol abuse. Rule out alcohol withdrawal syndrome. PLAN: The patient was placed on DuoNeb. The patient was also placed on Pulmicort and formoterol. The patient is on Solu-Medrol 60 mg q.6 and is on good antibiotic. Will make sure we get a sputum sample for analysis. In addition, we will get a urinary sample for urinary legionella antigen. Additional recommendations and suggestions are forthcoming. The patient was counseled about the importance of smoking cessation. She does not wish to have a nicotine patch at this time. Additional recommendations and suggestions are forthcoming. Prognosis is guarded. MMODL / IJN: [id number] /
--- NOTE | 2018-08-24 17:44 | P.PN ---
Subjective Progress Note Date: 08/24/18 The patient was seen and examined at the bedside. This morning, the patient noted persistent cough and SOB w/ minimal improvement. She also endorsed mild fevers but and chest discomfort due to excessive coughing. She denied nausea, vomiting, dizziness, dysuria, dizziness, or visual changes. Objective - Vital Signs Vital signs: Vital Signs Temp 99.2 F 08/24/18 15:00 Pulse 108 H 08/24/18 15:35 Resp 18 08/24/18 15:46 BP 109/62 08/24/18 15:00 Pulse Ox 91 L 08/24/18 06:20 Intake & Output 08/23/18 08/24/18 08/24/18 18:59 06:59 18:59 Other: Voiding Method Toilet Toilet # Voids 2 2 2 - Exam General: Non-toxic, in no acute distress, appears stated age HEENT: NC/AT, anicteric sclerae, moist conjunctiva, no lid-lag, PERRLA Cardiovascular: S1/S2 wnl, no murmurs, rubs, or gallops Lungs: Mild expiratory wheezing with scattered coarse breath sounds throughout. No rales appreciated. Abdominal: Soft, nontender, non-distended, no guarding, rebound, or rigidity Skin: Warm, dry Extremities: No edema or contractures Psychiatric: Alert and oriented to person, place and time, appropriate affect, Intact judgment Neuro: CN II-XII grossly intact, Strength 5/5 in all 4 extremities, Speech intact, Sensation to light touch grossly intact throughout - Labs CBC & Chem 7: 08/24/18 08:58 08/24/18 08:58 Labs: Abnormal Lab Results - Last 24 Hours (Table) 08/24/18 08/24/18 Range/Units 08:58 08:58 RBC 2.54 L (3.80-5.40) m/uL Hgb 9.8 L D (11.4-16.0) gm/dL Hct 29.5 L (34.0-46.0) % MCV 115.9 H (80.0-100.0) fL MCH 38.5 H (25.0-35.0) pg RDW 18.1 H (11.5-15.5) % Plt Count 77 L (150-450) k/uL Potassium 3.3 L (3.5-5.1) mmol/L Chloride 111 H (98-107) mmol/L Glucose 162 H (74-99) mg/dL AST 47 H (14-36) U/L Total Protein 5.3 L (6.3-8.2) g/dL Albumin 2.7 L (3.5-5.0) g/dL Microbiology - Last 24 Hours (Table) 08/22/18 11:05 Blood Culture - Preliminary Blood No Growth after 48 hours Assessment and Plan Plan: Sepsis secondary to Community Acquired Pneumonia, improved -C/w Levofloxacin 750 mg qd -Pulm consulted, recs appreciated -Will f/u Legionella urine Ag, and Blood cultures -C/w NS 100 cc/hr Acute COPD exacerbation -Pt started on Solu-medrol 60 mg q6h -C/w Duonebs and Pulmicort -Pt notes she takes Symbicort at home Tobacco abuse -Patient refused nicotine patch Alcohol abuse -C/w CIWA protocol w/ Ativan prn. C/w Thiamine 100 mg bid. Seizure disorder -C/w Carbamezapine 400 mg po qhs Bipolar disorder -C/w Geodon 60 mg po qhs Macrocytic anemia and Thrombocytopenia -No signs of active bleeding at this time. Possibly due to dilutional and sepsis. Hypokalemia -Replaced. Will monitor. DVT//GI prophylaxis - IPCDs - Protonix Discussed with: Eun Anticipated discharge date: 08/26/[address]: Home A total of 35 minutes was spent on the care of this complex patient more than 50 % of the time was spent in counseling and care coordination.
[2018-08-24 17:47] LABS: Glucose,Whole Blood 167 mg/dL (75-99)
[2018-08-24] MEDS: INSULIN ASPART 100 UNIT/ML 1 ML 10 ML VIAL SQ SCH ×2 (17:53→21:09)
[2018-08-24] MEDS: FORMOTEROL FUMARATE 20 MCG/2 ML NEBU INHALATION SCH (19:34)
[2018-08-24] MEDS: BUDESONIDE 1 MG/2 ML NEBU INHALATION SCH (19:34)
[2018-08-24 20:42] LABS: Glucose,Whole Blood 180 mg/dL (75-99)
[2018-08-24] MEDS: PROMETHAZ-COD 6.25-10 MG/5 ML 5 ML CUP PO PRN (21:08)
[2018-08-24] MEDS: carBAMazepine 400 MG TAB.ER.12H PO SCH (21:09)
[2018-08-24] MEDS: ZIPRASIDONE 60 MG CAP PO SCH (21:09)
[2018-08-25 00:21] LABS: Appearance,Urine Clear (Clear); Bacteria,Urine Rare /hpf; Bilirubin,Urine Negative (Negative); Blood,Urine Trace (Negative); Color,Urine Yellow; Glucose,Urine (UA) 1+ (Negative); Ketones,Urine Negative (Negative); Leukocyte Esterase,Urine Negative (Negative); Nitrite,Urine Negative (Negative); Protein,Urine 1+ (Negative); RBC,Urine <1 /hpf (0-5); Specific Gravity,Urine 1.011 (1.001-1.035); Squamous Epithelial Cell,Urine 1 /hpf (0-4); Urobilinogen,Urine <2.0 mg/dL (<2.0)
[2018-08-25] MEDS: PROMETHAZ-COD 6.25-10 MG/5 ML 5 ML CUP PO PRN ×4 (04:57→22:47)
[2018-08-25] MEDS: methylPREDNISolone SOD SUCCI 125 MG/2 ML VIAL IV SCH ×4 (06:01→23:35)
[2018-08-25] MEDS: IPRATROPIUM-ALBUTEROL 3 ML NEB INHALATION SCH ×4 (07:32→18:57)
[2018-08-25] MEDS: BUDESONIDE 1 MG/2 ML NEBU INHALATION SCH ×2 (07:32→18:57)
[2018-08-25] MEDS: FORMOTEROL FUMARATE 20 MCG/2 ML NEBU INHALATION SCH ×2 (07:32→21:04)
[2018-08-25 07:40] LABS: Glucose,Whole Blood 152 mg/dL (75-99)
[2018-08-25] MEDS: INSULIN ASPART 100 UNIT/ML 1 ML 10 ML VIAL SQ SCH ×4 (08:50→22:48)
[2018-08-25] MEDS: PANTOPRAZOLE 40 MG TABLET PO SCH (08:50)
[2018-08-25] MEDS: LEVOFLOXACIN 750 MG TAB PO SCH (08:50)
[2018-08-25] MEDS: SODIUM CHLORIDE 0.9% 1,000 ML IV SCH ×2 (08:50→16:13)
[2018-08-25 09:20] LABS: Anisocytosis Slight; HCT 28.5 % (34.0-46.0); HGB 9.2 gm/dL (11.4-16.0); Hypochromasia Slight; MCHC 32.4 g/dL (31.0-37.0); MCV 117.3 fL (80.0-100.0); Macrocytosis Marked; Mean Platelet Volume 9.9; RBC 2.43 m/uL (3.80-5.40); RDW 17.6 % (11.5-15.5); WBC 6.9 k/uL (3.8-10.6)
[2018-08-25 09:32] LABS: Platelet Count 73 k/uL (150-450)
[2018-08-25 09:34] LABS: ALT 33 U/L (9-52); AST 48 U/L (14-36); Albumin 2.7 g/dL (3.5-5.0); Alkaline Phosphatase 126 U/L (38-126); Anion Gap 7 mmol/L; Blood Urea Nitrogen 9 mg/dL (7-17); Calcium 8.3 mg/dL (8.4-10.2); Carbon Dioxide 19 mmol/L (22-30); Chloride 115 mmol/L (98-107); Glucose 177 mg/dL (74-99); Potassium 4.3 mmol/L (3.5-5.1); Sodium 141 mmol/L (137-145); Total Bilirubin 0.7 mg/dL (0.2-1.3); Total Protein 5.5 g/dL (6.3-8.2)
[2018-08-25 12:27] LABS: Glucose,Whole Blood 134 mg/dL (75-99)
[2018-08-25] MEDS: THIAMINE 100 MG TAB PO SCH ×2 (12:36→16:14)
--- NOTE | 2018-08-25 13:55 | P.PN ---
Subjective Progress Note Date: 08/25/18 Principal diagnosis: Bilateral community acquired pneumonia Progress note dated 09/04/2018 Patient is seen in follow-up on medical surgical floor. Shee is feeling better today, afebrile, blood and urine cultures are pending, likely related urinary antigen has been ordered, and this pending at this time. Today's labs have been reviewed, and the FVC is 6.9, hemoglobin is 9.2, sodium is 141, potassium is 4.3, chloride is 1:15, CO2 is 19, BUN is 9 creatinine 0.48. Antibiotic coverage in the form of Levaquin, she remains on IV Solu-Medrol, and nebulized bronchodilators. Objective - Vital Signs Vital signs: Vital Signs Temp 97.4 F L 08/25/18 07:00 Pulse 94 08/25/18 11:41 Resp 20 08/25/18 07:00 BP 114/67 08/25/18 07:00 Pulse Ox 95 08/25/18 07:32 Intake & Output 08/24/18 08/25/18 08/25/18 18:59 06:59 18:59 Intake Total 550 Balance 550 Intake: Oral 550 Other: Voiding Method Toilet Toilet # Voids 2 1 - Exam GENERAL EXAM: Alert, pleasant, 48-year-old white female comfortable in no apparent distress. HEAD: Normocephalic/atraumatic. EYES: Normal reaction of pupils, equal size. Conjunctiva pink, sclera white. NOSE: Clear with pink turbinates. THROAT: No erythema or exudates. NECK: No masses, no JVD, no thyroid enlargement, no adenopathy. CHEST: No chest wall deformity. Symmetrical expansion. LUNGS: Equal air entry with scattered wheezes, and rhonchi CVS: Regular rate and rhythm, normal S1 and S2, no gallops, no murmurs, no rubs ABDOMEN: Soft, nontender. No hepatosplenomegaly, normal bowel sounds, no guarding or rigidity. EXTREMITIES: No clubbing, no edema, no cyanosis, 2+ pulses and upper and lower extremities. MUSCULOSKELETAL: Muscle strength and tone normal. SPINE: No scoliosis or deformity SKIN: No rashes CENTRAL NERVOUS SYSTEM: Alert and oriented -3. No focal deficits, tone is normal in all 4 extremities. PSYCHIATRIC: Alert and oriented -3. Appropriate affect. Intact judgment and insight. - Labs CBC & Chem 7: 08/25/18 08:21 08/25/18 08:21 Labs: Abnormal Lab Results - Last 24 Hours (Table) 08/24/18 08/24/18 08/24/18 Range/Units 17:45 20:24 23:53 RBC (3.80-5.40) m/uL Hgb (11.4-16.0) gm/dL Hct (34.0-46.0) % MCV (80.0-100.0) fL MCH (25.0-35.0) pg RDW (11.5-15.5) % Plt Count (150-450) k/uL Chloride (98-107) mmol/L Carbon Dioxide (22-30) mmol/L Creatinine (0.52-1.04) mg/dL Glucose (74-99) mg/dL POC Glucose (mg/dL) 167 H 180 H (75-99) mg/dL Calcium (8.4-10.2) mg/dL AST (14-36) U/L Total Protein (6.3-8.2) g/dL Albumin (3.5-5.0) g/dL Urine Protein 1+ H (Negative) Urine Glucose (UA) 1+ H (Negative) Urine Blood Trace H (Negative) Urine Bacteria Rare H (None) /hpf 08/25/18 08/25/18 08/25/18 Range/Units 07:38 08:21 08:21 RBC 2.43 L (3.80-5.40) m/uL Hgb 9.2 L (11.4-16.0) gm/dL Hct 28.5 L (34.0-46.0) % MCV 117.3 H (80.0-100.0) fL MCH 38.0 H (25.0-35.0) pg RDW 17.6 H (11.5-15.5) % Plt Count 73 L (150-450) k/uL Chloride 115 H (98-107) mmol/L Carbon Dioxide 19 L (22-30) mmol/L Creatinine 0.48 L (0.52-1.04) mg/dL Glucose 177 H (74-99) mg/dL POC Glucose (mg/dL) 152 H (75-99) mg/dL Calcium 8.3 L (8.4-10.2) mg/dL AST 48 H (14-36) U/L Total Protein 5.5 L (6.3-8.2) g/dL Albumin 2.7 L (3.5-5.0) g/dL Urine Protein (Negative) Urine Glucose (UA) (Negative) Urine Blood (Negative) Urine Bacteria (None) /hpf 08/25/18 Range/Units 12:25 RBC (3.80-5.40) m/uL Hgb (11.4-16.0) gm/dL Hct (34.0-46.0) % MCV (80.0-100.0) fL MCH (25.0-35.0) pg RDW (11.5-15.5) % Plt Count (150-450) k/uL Chloride (98-107) mmol/L Carbon Dioxide (22-30) mmol/L Creatinine (0.52-1.04) mg/dL Glucose (74-99) mg/dL POC Glucose (mg/dL) 134 H (75-99) mg/dL Calcium (8.4-10.2) mg/dL AST (14-36) U/L Total Protein (6.3-8.2) g/dL Albumin (3.5-5.0) g/dL Urine Protein (Negative) Urine Glucose (UA) (Negative) Urine Blood (Negative) Urine Bacteria (None) /hpf Microbiology - Last 24 Hours (Table) 08/22/18 11:05 Blood Culture - Preliminary Blood No Growth after 72 hours 08/24/18 23:53 Urine Culture - Preliminary Urine,Voided Assessment and Plan Plan: Assessment: #1. Bilateral community-acquired pneumonia #2. Probable underlying chronic obstructive pulmonary disease #3. Actinic and ongoing heavy tobacco use #4. Acute exacerbation of COPD #5. GERD #6. Hypertension #7. History of DJD #8. History of seizure disorder #9. History of migraine cephalgia #10. History of cervical cancer #11. History of Helicobacter pylori infection #12. Chronic alcohol abuse Plan: Continue current antibiotic coverage, Legionella urinary antigen has been ordered and is pending at this time, cultures remain negative, afebrile, vital signs are stable, feeling better, no worsening dyspnea, continue nevertheless bronchodilators, and steroids. We'll continue to follow, obtain a follow-up chest x-ray in the morning I performed a history & physical examination of the patient and discussed their management with my nurse practitioner, Natalya Garcia. I reviewed the nurse practitioner's note and agree with the documented findings and plan of care. Lung sounds are positive for scattered rhonchi and wheezes. The findings and the impression was discussed with the patient. I attest to the documentation by the nurse practitioner. Time with Patient: Less than 30
--- NOTE | 2018-08-25 15:12 | P.PN ---
Subjective Progress Note Date: 08/25/18 The patient was seen and examined at the bedside on 08/25/18. She notes that her breathing has improved since yesterday with decreased cough and no further episodes of fever. She denied chills, nausea, vomiting, dizziness, headaches, or dysuria. Objective - Vital Signs Vital signs: Vital Signs Temp 97.4 F L 08/25/18 07:00 Pulse 94 08/25/18 11:41 Resp 20 08/25/18 07:00 BP 114/67 08/25/18 07:00 Pulse Ox 95 08/25/18 07:32 Intake & Output 08/24/18 08/25/18 08/25/18 18:59 06:59 18:59 Intake Total 550 Balance 550 Intake: Oral 550 Other: Voiding Method Toilet Toilet # Voids 2 1 - Exam General: Non-toxic, in no acute distress, appears stated age HEENT: NC/AT, anicteric sclerae, moist conjunctiva, no lid-lag, PERRLA Cardiovascular: S1/S2 wnl, no murmurs, rubs, or gallops Lungs: Mild expiratory wheezing with scattered coarse breath sounds throughout. Abdominal: Soft, nontender, non-distended, no guarding, rebound, or rigidity Skin: Warm, dry Extremities: No edema or contractures Psychiatric: Alert and oriented to person, place and time, appropriate affect, Intact judgment Neuro: CN II-XII grossly intact, Strength 5/5 in all 4 extremities, Speech intact, Sensation to light touch grossly intact throughout - Labs CBC & Chem 7: 08/25/18 08:21 08/25/18 08:21 Labs: Abnormal Lab Results - Last 24 Hours (Table) 08/24/18 08/24/18 08/24/18 Range/Units 17:45 20:24 23:53 RBC (3.80-5.40) m/uL Hgb (11.4-16.0) gm/dL Hct (34.0-46.0) % MCV (80.0-100.0) fL MCH (25.0-35.0) pg RDW (11.5-15.5) % Plt Count (150-450) k/uL Chloride (98-107) mmol/L Carbon Dioxide (22-30) mmol/L Creatinine (0.52-1.04) mg/dL Glucose (74-99) mg/dL POC Glucose (mg/dL) 167 H 180 H (75-99) mg/dL Calcium (8.4-10.2) mg/dL AST (14-36) U/L Total Protein (6.3-8.2) g/dL Albumin (3.5-5.0) g/dL Urine Protein 1+ H (Negative) Urine Glucose (UA) 1+ H (Negative) Urine Blood Trace H (Negative) Urine Bacteria Rare H (None) /hpf 08/25/18 08/25/18 08/25/18 Range/Units 07:38 08:21 08:21 RBC 2.43 L (3.80-5.40) m/uL Hgb 9.2 L (11.4-16.0) gm/dL Hct 28.5 L (34.0-46.0) % MCV 117.3 H (80.0-100.0) fL MCH 38.0 H (25.0-35.0) pg RDW 17.6 H (11.5-15.5) % Plt Count 73 L (150-450) k/uL Chloride 115 H (98-107) mmol/L Carbon Dioxide 19 L (22-30) mmol/L Creatinine 0.48 L (0.52-1.04) mg/dL Glucose 177 H (74-99) mg/dL POC Glucose (mg/dL) 152 H (75-99) mg/dL Calcium 8.3 L (8.4-10.2) mg/dL AST 48 H (14-36) U/L Total Protein 5.5 L (6.3-8.2) g/dL Albumin 2.7 L (3.5-5.0) g/dL Urine Protein (Negative) Urine Glucose (UA) (Negative) Urine Blood (Negative) Urine Bacteria (None) /hpf 08/25/18 Range/Units 12:25 RBC (3.80-5.40) m/uL Hgb (11.4-16.0) gm/dL Hct (34.0-46.0) % MCV (80.0-100.0) fL MCH (25.0-35.0) pg RDW (11.5-15.5) % Plt Count (150-450) k/uL Chloride (98-107) mmol/L Carbon Dioxide (22-30) mmol/L Creatinine (0.52-1.04) mg/dL Glucose (74-99) mg/dL POC Glucose (mg/dL) 134 H (75-99) mg/dL Calcium (8.4-10.2) mg/dL AST (14-36) U/L Total Protein (6.3-8.2) g/dL Albumin (3.5-5.0) g/dL Urine Protein (Negative) Urine Glucose (UA) (Negative) Urine Blood (Negative) Urine Bacteria (None) /hpf Microbiology - Last 24 Hours (Table) 08/22/18 11:05 Blood Culture - Preliminary Blood No Growth after 72 hours 08/24/18 23:53 Urine Culture - Preliminary Urine,Voided Assessment and Plan Plan: Community Acquired Pneumonia, sepsis resolved -C/w Levofloxacin 750 mg qd -Pulm consulted, recs appreciated -Will f/u Legionella urine Ag, and Blood cultures, still pending -C/w NS 100 cc/hr Acute COPD exacerbation -C/w Solu-medrol 60 mg q6h -C/w Duonebs and Pulmicort -Pt notes she takes Symbicort at home Tobacco abuse -Patient refused nicotine patch Alcohol abuse -C/w CIWA protocol w/ Ativan prn. C/w Thiamine 100 mg bid. Seizure disorder -C/w Carbamezapine 400 mg po qhs Bipolar disorder -C/w Geodon 60 mg po qhs Macrocytic anemia and Thrombocytopenia -No signs of active bleeding at this time. Possibly due to dilutional and sepsis. Hypokalemia -Resolved DVT//GI prophylaxis - IPCDs - Protonix Discussed with: Patient Anticipated discharge date: 08/26/[address]: Home A total of 35 minutes was spent on the care of this complex patient more than 50 % of the time was spent in counseling and care coordination.
[2018-08-25] MEDS: LORazepam 1 MG TAB PO PRN (16:18)
[2018-08-25 17:22] LABS: Glucose,Whole Blood 141 mg/dL (75-99)
[2018-08-25] MEDS: HYDROcodone/APAP 5-325MG 1 EACH TAB PO PRN (17:35)
[2018-08-25 21:47] LABS: Glucose,Whole Blood 225 mg/dL (75-99)
--- NOTE | 2018-08-25 22:02 | XR ---
EXAMINATION TYPE: XR chest 2V DATE OF EXAM: 08/25/2018 COMPARISON: CT PE study 08/14/2018 HISTORY: Dyspnea, chest pain TECHNIQUE: Frontal and lateral views of the chest are obtained. FINDINGS: Multifocal bilateral groundglass opacities are again present, most prominent in the lung b ases. This is similar when compared to most recent prior CT and radiograph. No pleural effusion or pn eumothorax. The cardiac silhouette size is within normal limits. The osseous structures are intact. Prior vertebral augmentation of a lower thoracic vertebral body. IMPRESSION: Redemonstration of multifocal bilateral groundglass opacities. Infectious etiology is again favored.
[2018-08-25] MEDS: carBAMazepine 400 MG TAB.ER.12H PO SCH (22:47)
[2018-08-25] MEDS: ZIPRASIDONE 60 MG CAP PO SCH (22:48)
[2018-08-26] MEDS: PROMETHAZ-COD 6.25-10 MG/5 ML 5 ML CUP PO PRN ×2 (05:18→11:28)
[2018-08-26] MEDS: methylPREDNISolone SOD SUCCI 125 MG/2 ML VIAL IV SCH ×2 (05:18→11:34)
[2018-08-26] MEDS: IPRATROPIUM-ALBUTEROL 3 ML NEB INHALATION SCH ×4 (07:34→19:50)
[2018-08-26] MEDS: FORMOTEROL FUMARATE 20 MCG/2 ML NEBU INHALATION SCH ×2 (07:34→19:43)
[2018-08-26] MEDS: BUDESONIDE 1 MG/2 ML NEBU INHALATION SCH ×2 (07:34→19:43)
[2018-08-26 07:47] LABS: Glucose,Whole Blood 218 mg/dL (75-99)
[2018-08-26] MEDS: INSULIN ASPART 100 UNIT/ML 1 ML 10 ML VIAL SQ SCH ×4 (09:02→22:20)
[2018-08-26] MEDS: PANTOPRAZOLE 40 MG TABLET PO SCH (09:02)
[2018-08-26] MEDS: LEVOFLOXACIN 750 MG TAB PO SCH (09:02)
[2018-08-26] MEDS: THIAMINE 100 MG TAB PO SCH ×2 (11:34→17:07)
[2018-08-26 12:18] LABS: Glucose,Whole Blood 168 mg/dL (75-99)
[2018-08-26] MEDS: LORazepam 1 MG TAB PO PRN ×2 (13:31→21:11)
--- NOTE | 2018-08-26 14:06 | PN ---
PROGRESS NOTE DATE OF SERVICE: August 26, 2018. This is a 48-year-old female admitted with diagnosis of bilateral lower lobe community- acquired pneumonia as well as a COPD exacerbation. The patient has a history of ongoing and heavy tobacco addiction and use, GERD, hypertension, DJD, seizure disorder, migraine cephalgia, H pylori infection, cervical cancer, and chronic alcohol abuse. The patient is feeling a bit better today, less short of breath. The patient is still having chest congestion, tightness, wheezing and cough. She is coughing up a small amount of yellow phlegm. A repeat chest x-ray was done yesterday and showed multifocal bilateral ground-glass opacities. Again, the patient is feeling a bit improved. Yesterday, the nurses called me to turn down the IV fluids, which I agreed to. Microbiologic studies are thus far negative. Current vital signs are reviewed. Her temperature is 98, heart rate 87, respiratory rate is 16, blood pressure 115/77 with mean of 89, at 5 L saturations 98%. She appears in no acute distress. No audible wheezing. She does cough frequently. No use of accessory muscles. She does not appear to be in acute respiratory distress. HEENT examination is grossly unremarkable. Mucous membranes are moist. No oral lesions. Neck is supple. Full range of motion. No adenopathy or thyromegaly. Neck veins are flat. Cardiovascular examination reveals regular rhythm and rate. S1, S2 normal. No S3, S4, or murmur. Heart sounds are distant. Lungs reveal coarse inspiratory and expiratory rhonchi and wheezes. There is prolongation on forced maneuver. She wheezes and coughs on forced maneuver. No crackles. Breath sounds are equal bilaterally but diminished throughout. Abdomen is soft. Bowel sounds are heard. Extremities are intact. No cyanosis, clubbing, or edema. Skin without rash. Neurologic examination is brief but nonfocal. LABS: Reviewed. No new labs from today. We did do urinary antigen for Legionella, but it is pending. UA is negative. Influenza studies were negative. Chest x-ray was read be reviewed. MEDICATIONS: Reviewed. She is on appropriate medications include Tessalon Perles, Pulmicort 1 mg twice a day, Perforomist twice a day mixed with Pulmicort, DuoNeb q.i.d. and p.r.n., Levaquin orally, Solu-Medrol 60 mg q.6 and promethazine with codeine cough syrup. ASSESSMENT: 1. Chronic obstructive pulmonary disease exacerbation complicated by bilateral multi lobar pneumonia, seen best on CT scan. 2. Ongoing tobacco use with nicotine addiction and likely underlying significant chronic obstructive pulmonary disease. 3. History of gastroesophageal reflux disease. 4. History of hypertension. 5. History of degenerative joint disease. 6. History of seizure disorder. 7. History of migraine cephalgia. 8. History of cervical cancer. 9. Previous history of Helicobacter pylori infection. 10.History of chronic alcohol abuse. PLAN: The patient will continue on all the appropriate medications including short-acting beta agonist, short-acting muscarinic antagonist, long-acting beta agonist, inhaled corticosteroids, systemic corticosteroids and antibiotics. We did preparole counseling aide the patient about the importance of smoking cessation. She understands. Repeat x-ray was done yesterday and still shows evidence of pneumonia. She is moving in the right direction, albeit slowly. Urinary antigen for Legionella is pending. We will continue to follow. Current microbiologic studies are negative. MMODL / IJN: [id number] /
[2018-08-26] MEDS: HYDROcodone/APAP 5-325MG 1 EACH TAB PO PRN (14:27)
--- NOTE | 2018-08-26 17:02 | P.PN ---
Subjective Progress Note Date: 08/26/18 (Pt seen at 12 pm) The patient was seen and examined at the bedside on 08/26/18. She notes her breathing has improved minimally since yesterday and she continues to have shortness of breath with non-productive cough. She though denied fever, chills, nausea, vomiting, dysuria, dizziness, chest pain, palpitations, or headaches. Objective - Vital Signs Vital signs: Vital Signs Temp 96.7 F L 08/26/18 14:45 Pulse 88 08/26/18 14:45 Resp 16 08/26/18 14:45 BP 120/67 08/26/18 14:45 Pulse Ox 95 08/26/18 14:45 Intake & Output 08/25/18 08/26/18 08/26/18 18:59 06:59 18:59 Intake Total 850 Balance 850 Intake: Oral 850 Other: Voiding Method Toilet # Voids 3 1 2 - Exam General: Non-toxic, in no acute distress, appears stated age HEENT: NC/AT, anicteric sclerae, moist conjunctiva, no lid-lag, PERRLA Cardiovascular: S1/S2 wnl, no murmurs, rubs, or gallops Lungs: Mild expiratory wheezing with no ronchi or rales appreciated Abdominal: Soft, nontender, non-distended, no guarding, rebound, or rigidity Skin: Warm, dry Extremities: No edema or contractures Psychiatric: Alert and oriented to person, place and time, appropriate affect, Intact judgment Neuro: CN II-XII grossly intact, Strength 5/5 in all 4 extremities, Speech intact, Sensation to light touch grossly intact throughout - Labs CBC & Chem 7: 08/25/18 08:21 08/25/18 08:21 Labs: Abnormal Lab Results - Last 24 Hours (Table) 08/25/18 08/25/18 08/26/18 Range/Units 17:19 21:42 07:45 POC Glucose (mg/dL) 141 H 225 H 218 H (75-99) mg/dL 08/26/18 Range/Units 12:10 POC Glucose (mg/dL) 168 H (75-99) mg/dL Microbiology - Last 24 Hours (Table) 08/22/18 11:05 Blood Culture - Preliminary Blood No Growth after 96 hours 08/24/18 23:53 Urine Culture - Final Urine,Voided Assessment and Plan Plan: Community Acquired Pneumonia, sepsis resolved -C/w Levofloxacin 750 mg qd -Pulm consulted, recs appreciated -Will f/u Legionella urine Ag, and Blood cultures, still pending -C/w NS 100 cc/hr Acute COPD exacerbation -Will decrease Solumedrol to 60 mg q12h -C/w Duonebs and Pulmicort -Pt notes she takes Symbicort at home Tobacco abuse -Patient refused nicotine patch Alcohol abuse -C/w CIWA protocol w/ Ativan prn. C/w Thiamine 100 mg bid. Seizure disorder -C/w Carbamezapine 400 mg po qhs Bipolar disorder -C/w Geodon 60 mg po qhs Macrocytic anemia and Thrombocytopenia -No signs of active bleeding at this time. Possibly due to dilutional and sepsis. Hypokalemia -Resolved DVT//GI prophylaxis - IPCDs - Protonix Discussed with: Patient Anticipated discharge date: 08/27/[address]: Home A total of 35 minutes was spent on the care of this complex patient more than 50 % of the time was spent in counseling and care coordination.
[2018-08-26] MEDS: SODIUM CHLORIDE 0.9% 1,000 ML IV SCH (17:07)
[2018-08-26] MEDS: BENZONATATE 100 MG CAP PO PRN (17:11)
[2018-08-26 17:29] LABS: Glucose,Whole Blood 135 mg/dL (75-99)
[2018-08-26 21:04] LABS: Glucose,Whole Blood 134 mg/dL (75-99)
[2018-08-26] MEDS: ZIPRASIDONE 60 MG CAP PO SCH (22:18)
[2018-08-26] MEDS: carBAMazepine 400 MG TAB.ER.12H PO SCH (22:18)
[2018-08-27] MEDS: methylPREDNISolone SOD SUCCI 125 MG/2 ML VIAL IV SCH ×2 (00:05→13:05)
[2018-08-27] MEDS: PROMETHAZ-COD 6.25-10 MG/5 ML 5 ML CUP PO PRN ×3 (00:22→15:07)
[2018-08-27] MEDS: SODIUM CHLORIDE 0.9% 1,000 ML IV SCH ×2 (04:17→13:06)
[2018-08-27 07:26] LABS: Glucose,Whole Blood 121 mg/dL (75-99)
[2018-08-27] MEDS: INSULIN ASPART 100 UNIT/ML 1 ML 10 ML VIAL SQ SCH ×4 (08:01→21:26)
[2018-08-27] MEDS: IPRATROPIUM-ALBUTEROL 3 ML NEB INHALATION SCH ×4 (09:08→19:54)
[2018-08-27] MEDS: BUDESONIDE 1 MG/2 ML NEBU INHALATION SCH ×2 (09:08→19:54)
[2018-08-27] MEDS: FORMOTEROL FUMARATE 20 MCG/2 ML NEBU INHALATION SCH ×2 (09:08→19:54)
[2018-08-27] MEDS: PANTOPRAZOLE 40 MG TABLET PO SCH (10:10)
[2018-08-27] MEDS: LEVOFLOXACIN 750 MG TAB PO SCH (10:10)
[2018-08-27] MEDS: LORazepam 1 MG TAB PO PRN (11:23)
[2018-08-27 11:36] LABS: Glucose,Whole Blood 102 mg/dL (75-99)
[2018-08-27] MEDS: THIAMINE 100 MG TAB PO SCH ×2 (13:06→17:27)
--- NOTE | 2018-08-27 13:33 | P.PN ---
Subjective Progress Note Date: 08/27/18 The patient was seen and examined at the bedside on 08/27/18. The patient notes her symptoms improved since yesterday. She however continues to have nonproductive cough but denied fever, chills, chest pain, nausea, vomiting, dizziness, headache, or dysuria. Objective - Vital Signs Vital signs: Vital Signs Temp 99.2 F 08/27/18 06:25 Pulse 74 08/27/18 12:33 Resp 17 08/27/18 08:00 BP 108/65 08/27/18 06:25 Pulse Ox 97 08/27/18 06:25 Intake & Output 08/26/18 08/27/18 08/27/18 18:59 06:59 18:59 Other: Voiding Method Toilet Toilet # Voids 2 1 - Exam General: Non-toxic, in no acute distress, appears stated age HEENT: NC/AT, anicteric sclerae, moist conjunctiva, no lid-lag, PERRLA Cardiovascular: S1/S2 wnl, no murmurs, rubs, or gallops Lungs: Mild expiratory wheezing with no ronchi or rales appreciated Abdominal: Soft, nontender, non-distended, no guarding, rebound, or rigidity Skin: Warm, dry Extremities: No edema or contractures Psychiatric: Alert and oriented to person, place and time, appropriate affect, Intact judgment Neuro: CN II-XII grossly intact, Strength 5/5 in all 4 extremities, Speech intact, Sensation to light touch grossly intact throughout - Labs CBC & Chem 7: 08/25/18 08:21 08/25/18 08:21 Labs: Abnormal Lab Results - Last 24 Hours (Table) 08/26/18 08/26/18 08/27/18 Range/Units 17:21 21:03 07:23 POC Glucose (mg/dL) 135 H 134 H 121 H (75-99) mg/dL 08/27/18 Range/Units 11:31 POC Glucose (mg/dL) 102 H (75-99) mg/dL Microbiology - Last 24 Hours (Table) 08/22/18 11:05 Blood Culture - Preliminary Blood No Growth after 120 hours 08/24/18 23:53 Urine Culture - Final Urine,Voided Assessment and Plan Plan: Community Acquired Pneumonia, sepsis resolved -C/w Levofloxacin 750 mg qd -Pulm consulted, recs appreciated -Legionella Ag negative. Blood cultures w/ no growth to date Acute COPD exacerbation -Will switch patient to oral steroids in preparation for likely discharge tomorrow -C/w Duonebs and Pulmicort -Pt notes she takes Symbicort at home Tobacco abuse -Patient refused nicotine patch Alcohol abuse -C/w CIWA protocol w/ Ativan prn. C/w Thiamine 100 mg bid. Seizure disorder -C/w Carbamezapine 400 mg po qhs Bipolar disorder -C/w Geodon 60 mg po qhs Macrocytic anemia and Thrombocytopenia -No signs of active bleeding at this time. Possibly due to dilutional and sepsis. Hypokalemia -Resolved DVT//GI prophylaxis - IPCDs - Protonix Discussed with: Patient Anticipated discharge date: 08/28/[address]: Home A total of 35 minutes was spent on the care of this complex patient more than 50 % of the time was spent in counseling and care coordination.
[2018-08-27 17:03] LABS: Glucose,Whole Blood 110 mg/dL (75-99)
--- NOTE | 2018-08-27 17:33 | P.PN ---
Subjective Progress Note Date: 08/27/18 38-year-old female patient is being seen in follow-up. The patient is currently being treated for an acute COPD exacerbation. There may be an underlying coronary to acquired pneumonia in addition. The influenza screen was negative. Legionella urine antigen was negative. The patient is currently on oral Levaquin. The patient is also on IV Solu Medrol and based on the difficulty for IV access the patient was in a prednisone burst taper as of tomorrow. She is also on a combination of DuoNeb about treatments around the clock. She is a chronic alcohol drinker and she is currently on the CIWA protocol. She claims that she has quit smoking and drinking. She is placed on thiamine regarding her chronic alcoholism. No altered mentation. She is a bit shaky yet there is no signs of any delirium. She has a dry cough. Bronchus spastic and wheezy at this point in time. Oxygenation shows a pulse of 74% on 2 L of oxygen by nasal cannula. Objective - Vital Signs Vital signs: Vital Signs Temp 97.5 F L 08/27/18 14:38 Pulse 76 08/27/18 15:40 Resp 16 08/27/18 16:00 BP 120/76 08/27/18 14:38 Pulse Ox 94 L 08/27/18 14:38 Intake & Output 08/26/18 08/27/18 08/27/18 18:59 06:59 18:59 Other: Voiding Method Toilet Toilet # Voids 2 1 3 - Exam Gen. appearance, comfortable likely distress. Head exam was generally normal. There was no scleral icterus or corneal arcus. Mucous membranes were moist. Neck was supple and without jugular venous distension, thyromegaly, or carotid bruits. Carotids were easily palpable bilaterally. There was no adenopathy. Lungs sounds are diminished bilaterally along with scattered expiratory wheezes throughout the lung his bilaterally. Cardiac exam revealed the PMI to be normally situated and sized. The rhythm was regular and no extrasystoles were noted during several minutes of auscultation. The first and second heart sounds were normal and physiologic splitting of the second heart sound was noted. There were no murmurs, rubs, clicks, or gallops. Abdominal exam revealed normal bowel sounds. The abdomen was soft, non-tender, and without masses, organomegaly, or appreciable enlargement of the abdominal aorta. Examination of the skin revealed no evidence of significant rashes, suspicious appearing nevi or other concerning lesions. Neurologically patient is awake and alert and there is no signs of any delirium tremens at this point in time. - Labs CBC & Chem 7: 08/25/18 08:21 08/25/18 08:21 Labs: Abnormal Lab Results - Last 24 Hours (Table) 08/26/18 08/27/18 08/27/18 Range/Units 21:03 07:23 11:31 POC Glucose (mg/dL) 134 H 121 H 102 H (75-99) mg/dL 08/27/18 Range/Units 16:58 POC Glucose (mg/dL) 110 H (75-99) mg/dL Microbiology - Last 24 Hours (Table) 08/22/18 11:05 Blood Culture - Preliminary Blood No Growth after 120 hours Assessment and Plan Plan: Blaire 1 acute COPD exacerbation, improving slowly 2 shortness of breath secondary to above 3 pneumonia likely of a community acquired nature as suspected. Currently on Levaquin. In general urine antigen is negative. Blood cultures of been negative 4 smoker 5 history of alcoholism 6 seizure disorder 7 bipolar disorder 8 chronic anemia macrocytic along with a component of thrombocytopenia secondary to alcoholism Plan Continue current treatment. Continue same bronchodilators regimen. Agree on switching this patient a prednisone burst taper starting dose of 60 mg by mouth continue oral Levaquin. Increased level of activity as tolerated. Wean off FiO2. We'll continue to follow.
[2018-08-27 20:41] LABS: Glucose,Whole Blood 100 mg/dL (75-99)
[2018-08-27] MEDS: ZIPRASIDONE 60 MG CAP PO SCH (21:51)
[2018-08-27] MEDS: carBAMazepine 400 MG TAB.ER.12H PO SCH (21:51)
[2018-08-28] MEDS: PROMETHAZ-COD 6.25-10 MG/5 ML 5 ML CUP PO PRN (04:20)
[2018-08-28 07:21] LABS: Glucose,Whole Blood 81 mg/dL (75-99)
[2018-08-28] MEDS: INSULIN ASPART 100 UNIT/ML 1 ML 10 ML VIAL SQ SCH ×4 (07:35→21:29)
[2018-08-28] MEDS: PANTOPRAZOLE 40 MG TABLET PO SCH (08:32)
[2018-08-28] MEDS: LEVOFLOXACIN 750 MG TAB PO SCH (08:32)
[2018-08-28] MEDS: predniSONE 20 MG TAB PO SCH (08:32)
[2018-08-28] MEDS: IPRATROPIUM-ALBUTEROL 3 ML NEB INHALATION SCH ×4 (08:59→19:00)
[2018-08-28] MEDS: FORMOTEROL FUMARATE 20 MCG/2 ML NEBU INHALATION SCH ×2 (08:59→18:59)
[2018-08-28] MEDS: BUDESONIDE 1 MG/2 ML NEBU INHALATION SCH ×2 (08:59→18:59)
[2018-08-28] MEDS: ACETAMINOPHEN TAB 325 MG TAB PO PRN (11:23)
[2018-08-28] MEDS: THIAMINE 100 MG TAB PO SCH ×2 (11:23→15:56)
[2018-08-28 12:12] LABS: Glucose,Whole Blood 120 mg/dL (75-99)
[2018-08-28 14:21] LABS: HIV-1 RNA Not detected (Not detected)
--- NOTE | 2018-08-28 15:54 | XR ---
EXAMINATION TYPE: XR chest 2V DATE OF EXAM: 08/28/2018 COMPARISON: Prior chest x-ray 08/25/2018 HISTORY: Follow-up pneumonia TECHNIQUE: Frontal and lateral views of the chest are obtained. FINDINGS: Lung volumes are low and the patient is rotated. Prominent interstitium has improved in th e interval. No evident pneumothorax or pleural effusion. Patchy retrocardiac density is noted. Heart size is stable. Vertebral plasty change is present at L1. IMPRESSION: Suspect improvement in aeration of the lungs. There may be some basilar atelectasis.
[2018-08-28] MEDS: LORazepam 1 MG TAB PO PRN ×2 (16:01→23:36)
--- NOTE | 2018-08-28 16:05 | P.PN ---
Subjective Progress Note Date: 08/28/18 Principal diagnosis: Bilateral community acquired pneumonia Progress note dated 08/27/2018 Patient is seen in follow-up on medical surgical floor. Shee is feeling better today, afebrile, blood and urine cultures are pending, likely related urinary antigen has been ordered, and this pending at this time. Today's labs have been reviewed, and the FVC is 6.9, hemoglobin is 9.2, sodium is 141, potassium is 4.3, chloride is 1:15, CO2 is 19, BUN is 9 creatinine 0.48. Antibiotic coverage in the form of Levaquin, she remains on IV Solu-Medrol, and nebulized bronchodilators. On 08/28/2018 patient seen in follow-up on medical surgical floor. She is resting comfortably in bed, in no acute distress, fever no chills, patient has been ambulating on oxygen, room air pulse ox was 85%, patient does qualify for home oxygen, lung sounds are diminished with a few scattered rales at the bases , patient states her cough is starting to become productive, and she is able to clear some sputum. Afebrile, hemodynamically stable, urine and blood cultures were negative. Patient is on oral Levaquin, IV steroids have been transitioned to oral prednisone, he is on nebulized bronchodilators. Today's chest x-ray was reviewed by Dr. Gregory and showed improvement in aeration of both lungs, with some basilar atelectasis. Patient has a mild headache today, and some intermittent tingling in bilateral hands, no dizziness, no lightheadedness, no visual changes. Objective - Vital Signs Vital signs: Vital Signs Temp 98.1 F 08/28/18 07:00 Pulse 76 08/28/18 09:28 Resp 18 08/28/18 07:00 BP 110/70 08/28/18 07:00 Pulse Ox 85 L 08/28/18 10:45 Intake & Output 08/27/18 08/28/18 08/28/18 18:59 06:59 18:59 Other: Voiding Method Toilet # Voids 3 1 - Exam GENERAL EXAM: Alert, pleasant, 48-year-old white female comfortable in no apparent distress. HEAD: Normocephalic/atraumatic. EYES: Normal reaction of pupils, equal size. Conjunctiva pink, sclera white. NOSE: Clear with pink turbinates. THROAT: No erythema or exudates. NECK: No masses, no JVD, no thyroid enlargement, no adenopathy. CHEST: No chest wall deformity. Symmetrical expansion. LUNGS: Equal air entry with scattered wheezes, and rhonchi CVS: Regular rate and rhythm, normal S1 and S2, no gallops, no murmurs, no rubs ABDOMEN: Soft, nontender. No hepatosplenomegaly, normal bowel sounds, no guarding or rigidity. EXTREMITIES: No clubbing, no edema, no cyanosis, 2+ pulses and upper and lower extremities. MUSCULOSKELETAL: Muscle strength and tone normal. SPINE: No scoliosis or deformity SKIN: No rashes CENTRAL NERVOUS SYSTEM: Alert and oriented -3. No focal deficits, tone is normal in all 4 extremities. PSYCHIATRIC: Alert and oriented -3. Appropriate affect. Intact judgment and insight. - Labs CBC & Chem 7: 08/25/18 08:21 08/25/18 08:21 Labs: Abnormal Lab Results - Last 24 Hours (Table) 08/27/18 08/27/18 08/28/18 Range/Units 16:58 20:38 11:58 POC Glucose (mg/dL) 110 H 100 H 120 H (75-99) mg/dL Microbiology - Last 24 Hours (Table) 08/22/18 11:05 Blood Culture - Final Blood No Growth after 144 hours Assessment and Plan Plan: Assessment: #1. Bilateral community-acquired pneumonia #2. Probable underlying chronic obstructive pulmonary disease #3. Actinic and ongoing heavy tobacco use #4. Acute exacerbation of COPD #5. GERD #6. Hypertension #7. History of DJD #8. History of seizure disorder #9. History of migraine cephalgia #10. History of cervical cancer #11. History of Helicobacter pylori infection #12. Chronic alcohol abuse Plan: Continue current medical treatment, continue nebulized bronchodilators, IV steroids have been transitioned to oral prednisone. Today's chest x-ray showed improvement in aeration in bilateral lungs, no fever no chills, anticipate discharge in next 24 hours I performed a history & physical examination of the patient and discussed their management with my nurse practitioner, Natalya Garcia. I reviewed the nurse practitioner's note and agree with the documented findings and plan of care. Lung sounds are positive for scattered rhonchi and wheezes. The findings and the impression was discussed with the patient. I attest to the documentation by the nurse practitioner. Time with Patient: Less than 30
[2018-08-28 17:04] LABS: Glucose,Whole Blood 145 mg/dL (75-99)
--- NOTE | 2018-08-28 17:08 | P.PN ---
Subjective Progress Note Date: 08/28/18 The patient seen and examined at the bedside on 08/28/18. The patient notes her breathing is improved though has persistent non-productive cough and unable to wean off oxygen. Saturating 82-85% on RA at rest. She is otherwise denying any episodes of fever, chills, chest pain, nausea, vomiting,, dizziness, dysuria, or headaches. Objective - Vital Signs Vital signs: Vital Signs Temp 98.3 F 08/28/18 15:00 Pulse 69 08/28/18 15:00 Resp 18 08/28/18 15:00 BP 122/81 08/28/18 15:00 Pulse Ox 96 08/28/18 15:00 Intake & Output 08/27/18 08/28/18 08/28/18 18:59 06:59 18:59 Other: Voiding Method Toilet # Voids 3 1 3 - Exam General: Non-toxic, in no acute distress, appears stated age HEENT: NC/AT, anicteric sclerae, moist conjunctiva, no lid-lag, PERRLA Cardiovascular: S1/S2 wnl, no murmurs, rubs, or gallops Lungs: Minimal expiratory wheezing with no ronchi or rales appreciated Abdominal: Soft, nontender, non-distended, no guarding, rebound, or rigidity Skin: Warm, dry Extremities: No edema or contractures Psychiatric: Alert and oriented to person, place and time, appropriate affect, Intact judgment Neuro: CN II-XII grossly intact, Strength 5/5 in all 4 extremities, Speech intact, Sensation to light touch grossly intact throughout - Labs CBC & Chem 7: 08/25/18 08:21 08/25/18 08:21 Labs: Abnormal Lab Results - Last 24 Hours (Table) 08/27/18 08/28/18 08/28/18 Range/Units 20:38 11:58 16:58 POC Glucose (mg/dL) 100 H 120 H 145 H (75-99) mg/dL Microbiology - Last 24 Hours (Table) 08/22/18 11:05 Blood Culture - Final Blood No Growth after 144 hours Assessment and Plan Plan: Community Acquired Pneumonia, sepsis resolved -C/w Levofloxacin 750 mg qd -Pulm consulted, recs appreciated -Legionella Ag negative. Blood cultures w/ no growth to date Acute COPD exacerbation -C/w Prednisone 60 mg po qd for now. Will attempt to wean pt off oxygen. Will DC tomorrow w/ oxygen if unable to be weaned. -C/w Duonebs and Pulmicort -Pt notes she takes Symbicort at home Tobacco abuse -Patient refused nicotine patch Alcohol abuse -C/w CIWA protocol w/ Ativan prn. C/w Thiamine 100 mg bid. Seizure disorder -C/w Carbamezapine 400 mg po qhs Bipolar disorder -C/w Geodon 60 mg po qhs Macrocytic anemia and Thrombocytopenia -No signs of active bleeding at this time. Possibly due to dilutional and sepsis. Hypokalemia -Resolved DVT//GI prophylaxis - IPCDs - Protonix Discussed with: Patient Anticipated discharge date: 08/29/[address]: Home A total of 35 minutes was spent on the care of this complex patient more than 50 % of the time was spent in counseling and care coordination.
[2018-08-28] MEDS: HYDROcodone/APAP 5-325MG 1 EACH TAB PO PRN (18:41)
[2018-08-28] MEDS: ZIPRASIDONE 60 MG CAP PO SCH (21:28)
[2018-08-28] MEDS: carBAMazepine 400 MG TAB.ER.12H PO SCH (21:28)
[2018-08-28 21:30] LABS: Glucose,Whole Blood 116 mg/dL (75-99)
[2018-08-29] MEDS: BENZONATATE 100 MG CAP PO PRN (04:48)
[2018-08-29 07:48] LABS: Glucose,Whole Blood 106 mg/dL (75-99)
[2018-08-29] MEDS: INSULIN ASPART 100 UNIT/ML 1 ML 10 ML VIAL SQ SCH (07:53)
[2018-08-29] MEDS: PANTOPRAZOLE 40 MG TABLET PO SCH (07:55)
[2018-08-29] MEDS: predniSONE 20 MG TAB PO SCH (07:55)
[2018-08-29] MEDS: LEVOFLOXACIN 750 MG TAB PO SCH (07:55)
[2018-08-29 08:11] VITALS: BP 96/60; RESP 18; TEMP 98.6
[2018-08-29] MEDS: BUDESONIDE 1 MG/2 ML NEBU INHALATION SCH (08:13)
[2018-08-29] MEDS: IPRATROPIUM-ALBUTEROL 3 ML NEB INHALATION SCH ×2 (08:13→12:02)
[2018-08-29] MEDS: FORMOTEROL FUMARATE 20 MCG/2 ML NEBU INHALATION SCH (08:13)
[2018-08-29] MEDS: THIAMINE 100 MG TAB PO SCH (11:05)
--- NOTE | 2018-08-29 11:12 | P.DS ---
Providers Date of admission: 08/22/18 13:46 Expected date of discharge: 08/29/18 Attending physician: Lester Sinha MD Consults: 08/24/18 07:35 Consult Physician Urgent Consulting Provider: Hui Gregory Consult Reason/Comments: Bilateral pneumonia Do you want consulting provider notified?: Yes Primary care physician: [facility] Course: The patient is a 48 yo F w/ a PMH of seizure d/o, bipolar disorder, GERD, alcohol abuse, hypothyroidism, and significant tobacco abuse (2 PPD x 30 years) presented to the ED w/ c/o fever, chills, and cough. Patient had noted that her cough had started approximately 10 days prior to presentation and that she had seen her PCP and was prescribed a Z-pack which did not improve her symptoms. She had gone to an urgent care center where was found to be tachycardic and febrile and was thereby advised to go to the ED. In the ED, pt was noted to be febrile to 101.9 w/ lactate elevated to 2.3. EKG revealed sinus tachycardia. D- dimer was elevated to 0.89 and a CTA was done which was negative for PE but showed bilateral pneumonia. The patient was admitted for further management of sepsis secondary to complicated community acquired pneumonia. She was started on Levofloxacin and IV fluids and was admitted to the regular floor. The patient continued to be febrile until 08/24/18. The patient was also noted to have significant wheezing and along with hypoxia. Pulmonary was consulted and recommended that patient likely has undiagnosed COPD and she was started on Bronchodilators w/ IV steroids. The patient continued to require supplemental oxygen with persistent wheezing. She was gradually tapered to oral steroids and on 08/29/18, was noted to be saturating 95% on RA at rest and >90% SpO2 on RA upon ambulation for 6 minutes. She is presently stable and ready for discharge to home. Physical Examination General: Awake, alert, in no acute distress HEENT: NC/AT, anicteric sclerae, moist conjunctiva, no lid-lag, PERRLA, oropharynx clear, no erythema, exudates Cardiovascular: S1/S2 wnl, no murmurs, rubs, or gallops Lungs: Clear to auscultation, normal respiratory effort, no accessory muscle use Abdominal: Soft, nontender, non-distended, no guarding, rebound, or rigidity, normoactive bowel sounds Skin: Warm, dry Extremities: No edema or contractures Psychiatric: Alert and oriented to person, place and time, appropriate affect, Intact judgment Neuro: CN II-XI grossly intact, sensation to light touch grossly present throughout, no focal sensory deficits Discharge diagnosis:Complicated community acquired pneumonia (Sepsis resolved); Acute COPD exacerbation; Tobacco abuse; Alcohol abuse; Seizure d/o; Bipolar disorder; Microcytic anemia; Thrombocytopenia; Hypokalemia A total of 60 minutes of time were spent preparing this complex discharge summary. Patient Condition at Discharge: Stable Plan - Discharge Summary Discharge Rx Participant: Yes New Discharge Prescriptions: New Budesonide-Formot 160-4.5 Mcg [Symbicort 160-4.5 Mcg Inhaler] 2 puff INHALATION BID #1 inhaler Levofloxacin [Levaquin] 750 mg PO DAILY #3 tab predniSONE 0 mg PO DIRECTED #30 tab Continue Diazepam [Valium] 10 mg PO TID PRN PRN Reason: Anxiety Estradiol [Estrace] 1 mg PO HS Imitrex (Unknown Dose) 1 dose IM DIRECTED PRN PRN Reason: Migraine Headache Albuterol Inhaler [Ventolin Hfa Inhaler] 1 - 2 puff INHALATION RT-Q6H PRN PRN Reason: Shortness Of Breath Ziprasidone [Geodon] 60 mg PO HS carBAMazepine [TEGretol XR] 400 mg PO HS Discharge Medication List Diazepam [Valium] 10 mg PO TID PRN 08/26/15 [History] Estradiol [Estrace] 1 mg PO HS 07/19/16 [History] Albuterol Inhaler [Ventolin Hfa Inhaler] 1 - 2 puff INHALATION RT-Q6H PRN [History] Imitrex (Unknown Dose) 1 dose IM DIRECTED PRN 06/11/18 [History] Ziprasidone [Geodon] 60 mg PO HS 08/22/18 [History] carBAMazepine [TEGretol XR] 400 mg PO HS 08/22/18 [History] Budesonide-Formot 160-4.5 Mcg [Symbicort 160-4.5 Mcg Inhaler] 2 puff INHALATION BID #1 inhaler 08/29/18 [Rx] Levofloxacin [Levaquin] 750 mg PO DAILY #3 tab 08/29/18 [Rx] predniSONE 0 mg PO DIRECTED #30 tab 08/29/18 [Rx] Follow up Appointment(s)/Referral(s): [facility] [NON-STAFF] - (Supplied the Nebulizer.) Govind Covington MD [Primary Care Provider] - 1-2 days Patient Instructions/Handouts: How to Stop Smoking (DC), Pneumonia (DC) Activity/Diet/Wound Care/Special Instructions: discharge rx Discharge Disposition: HOME SELF-CARE
[2018-08-29 11:31] VITALS: BMI 19.3
[2018-08-29 12:15] VITALS: PULSE 80
== END 2018-08-29 12:40 | disposition home or self-care (01) | DRG 871 ==
LOC: EC 10:09 → 4MS4W 13:46
PROVIDERS: ADMIT Family Medicine; ATTEND Family Medicine
DX: A41.9 Sepsis, unspecified organism (principal); J18.9 Pneumonia, unspecified organism; J44.0 Chronic obstructive pulmonary disease with (acute) lower respiratory infection; J44.1 Chronic obstructive pulmonary disease with (acute) exacerbation; J98.11 Atelectasis; R17 Unspecified jaundice; E03.9 Hypothyroidism, unspecified; F17.210 Nicotine dependence, cigarettes, uncomplicated; F31.9 Bipolar disorder, unspecified; G40.909 Epilepsy, unspecified, not intractable, without status epilepticus; G43.909 Migraine, unspecified, not intractable, without status migrainosus; I10 Essential (primary) hypertension; K21.9 Gastro-esophageal reflux disease without esophagitis; K58.0 Irritable bowel syndrome with diarrhea; M79.7 Fibromyalgia; R09.02 Hypoxemia; T42.1X5A Adverse effect of iminostilbenes, initial encounter; D53.9 Nutritional anemia, unspecified; D69.6 Thrombocytopenia, unspecified; E87.6 Hypokalemia; M19.90 Unspecified osteoarthritis, unspecified site; F10.10 Alcohol abuse, uncomplicated; Z79.899 Other long term (current) drug therapy; Z91.041 Radiographic dye allergy status; Z91.012 Allergy to eggs; Z91.010 Allergy to peanuts; Z91.018 Allergy to other foods; Z85.41 Personal history of malignant neoplasm of cervix uteri; Z86.14 Personal history of Methicillin resistant Staphylococcus aureus infection; Z86.19 Personal history of other infectious and parasitic diseases; Z90.710 Acquired absence of both cervix and uterus; Z90.49 Acquired absence of other specified parts of digestive tract; Z90.722 Acquired absence of ovaries, bilateral; Z98.51 Tubal ligation status; Z80.3 Family history of malignant neoplasm of breast; Z81.3 Family history of other psychoactive substance abuse and dependence; Z82.49 Family history of ischemic heart disease and other diseases of the circulatory system; Z83.3 Family history of diabetes mellitus; Z83.511 Family history of glaucoma; Z81.8 Family history of other mental and behavioral disorders
CPT/HCPCS: 36415; 71046; 71275; 80053; 81001; 82550; 82553; 82607; 82746; 83605; 83735; 84443; 84484; 85025; 85027; 85379; 85610; 85730; 87040; 87086; 87449; 87502; 87535; 93005; 93306; 94640; 94760; 96361; 96365; 96366; 96375; 99285

== ENCOUNTER → 2018-11-02 | Outpatient (CLI) | payer MEDICARE, OTHER ==
[2018-11-02 16:51] LABS: Basophils % (A) 0 %; Eosinophils # (A) 0.1 k/uL (0-0.7); Eosinophils % (A) 1 %; HCT 41.2 % (34.0-46.0); HGB 13.2 gm/dL (11.4-16.0); Lymphocytes # (A) 2.5 k/uL (1.0-4.8); Lymphocytes % (A) 34 %; MCHC 32.2 g/dL (31.0-37.0); Macrocytosis Moderate; Mean Platelet Volume 7.4; Monocytes # (A) 0.4 k/uL (0-1.0); Monocytes % (A) 5 %; Neutrophils # (A) 4.3 k/uL (1.3-7.7); Neutrophils % (A) 58 %; Platelet Count 239 k/uL (150-450); RBC 3.79 m/uL (3.80-5.40); RDW 13.2 % (11.5-15.5); WBC 7.3 k/uL (3.8-10.6)
[2018-11-02 16:59] LABS: MCV 108.6 fL (80.0-100.0)
[2018-11-02 22:57] LABS: Protein, Total 6.6 g/dL (6.2-8.2)
[2018-11-02 23:07] LABS: Calcium 9.6 mg/dL (8.7-10.3)
[2018-11-03 00:30] LABS: ACTH 6.37 pg/mL (0.00-45.99)
[2018-11-03 00:42] LABS: Anion Gap 9.5 mmol/L (4.00-12.00); Carbon Dioxide 23.5 mmol/L (21.6-31.8)
[2018-11-05 12:33] LABS: Albumin 4.29 g/dL (3.80-4.90); Gamma Globulin 0.71 g/dL (0.70-1.50)
== END | disposition home or self-care (01) ==
LOC: LABWHC1 16:18
PROVIDERS: ATTEND Nurse Practitioner Adult Health
DX: E87.2 Acidosis (principal); R42 Dizziness and giddiness; R63.1 Polydipsia; J44.1 Chronic obstructive pulmonary disease with (acute) exacerbation; F10.20 Alcohol dependence, uncomplicated; G43.709 Chronic migraine without aura, not intractable, without status migrainosus; D75.89 Other specified diseases of blood and blood-forming organs
CPT/HCPCS: 36415; 80048; 82024; 82164; 83605; 84165; 85025

== ENCOUNTER → 2018-12-07 | Outpatient (CLI) | payer MEDICARE, OTHER ==
[2018-12-07 12:34] LABS: Basophils % (A) 1 %; Eosinophils # (A) 0.1 k/uL (0-0.7); Eosinophils % (A) 1 %; HCT 43.2 % (34.0-46.0); HGB 13.7 gm/dL (11.4-16.0); Lymphocytes # (A) 1.5 k/uL (1.0-4.8); Lymphocytes % (A) 30 %; MCH 33.8 pg (25.0-35.0); MCHC 31.7 g/dL (31.0-37.0); MCV 106.7 fL (80.0-100.0); Macrocytosis Moderate; Mean Platelet Volume 6.9; Monocytes # (A) 0.3 k/uL (0-1.0); Monocytes % (A) 5 %; Neutrophils # (A) 3.2 k/uL (1.3-7.7); Neutrophils % (A) 62 %; Platelet Count 241 k/uL (150-450); RBC 4.05 m/uL (3.80-5.40); WBC 5.1 k/uL (3.8-10.6)
--- NOTE | 2018-12-07 12:38 | CT ---
EXAMINATION TYPE: CT brain wo con DATE OF EXAM: 12/07/2018 COMPARISON: CT brain December 15, 2016 HISTORY: HUIZAR after seizure x3 days ago CT DLP: 1162 mGycm. Automated Exposure Control for Dose Reduction was Utilized. TECHNIQUE: CT scan of the head is performed without contrast. FINDINGS: There is no acute intracranial hemorrhage or midline shift identified. There is persiste nt ventricular sulcal prominence most prominent over bilateral frontal lobes consistent with symmetri c mild to borderline moderate frontal lobe atrophy. The globes are intact and the visualized sinuses are clear. Nasal septum is deviated to right of midline. IMPRESSION: No acute intracranial hemorrhage or midline shift is seen. Redemonstration of mild to mo rderline moderate symmetric bilateral frontal lobe atrophy. No significant change from prior CT.
[2018-12-07 12:43] LABS: ALT 17 U/L (9-52); AST 13 U/L (14-36); Albumin 3.8 g/dL (3.5-5.0); Alkaline Phosphatase 68 U/L (38-126); Anion Gap 6 mmol/L; Blood Urea Nitrogen 7 mg/dL (7-17); Calcium 9.5 mg/dL (8.4-10.2); Carbamazepine (Tegretol) 7.1 ug/mL; Carbon Dioxide 25 mmol/L (22-30); Chloride 110 mmol/L (98-107); Glucose 109 mg/dL (74-99); Potassium 3.6 mmol/L (3.5-5.1); Sodium 141 mmol/L (137-145); Total Bilirubin 0.3 mg/dL (0.2-1.3); Total Protein 6.2 g/dL (6.3-8.2)
== END | disposition home or self-care (01) ==
LOC: RADCTMAIN 11:56
PROVIDERS: ATTEND Nurse Practitioner Adult Health
DX: G31.9 Degenerative disease of nervous system, unspecified (principal)
CPT/HCPCS: 70450; 80053; 80156; 85025

== ENCOUNTER → 2019-02-26 | Outpatient (CLI) | payer MEDICARE, OTHER ==
--- NOTE | 2019-02-27 08:06 | USB ---
Reason for exam: clinical finding. History: Patient is postmenopausal and has history of endometrial cancer at age 27. Family history of breast cancer in mother and breast cancer in grandmother. Implants in both breasts. Indicated problem(s): other indicated problem in both breasts. Physical Findings: Nurse did not find any significant physical abnormalities on exam. US Breast BILAT Right complete breast ultrasound includes all four quadrants, the retroareolar region and axilla. Finding demonstrates no cystic or solid lesion seen. Left complete breast ultrasound includes all four quadrants, the retroareolar region and axilla. Finding demonstrates a 0.8 x 0.3 x 0.5cm cystic cluster at 12 o'clock. These results were verbally communicated with the patient and result sheet given to the patient on 02/26/19. ASSESSMENT: Benign, BI-RAD 2 RECOMMENDATION: Routine screening mammogram of both breasts. Back on schedule. Patient is due now for screening mammogram.
== END | disposition home or self-care (01) ==
LOC: RADUSWWP 14:13
PROVIDERS: ATTEND Nurse Practitioner Adult Health
DX: N63.21 Unspecified lump in the left breast, upper outer quadrant (principal); Z80.3 Family history of malignant neoplasm of breast

== ENCOUNTER 2019-03-10 10:15 | Emergency (ER) | payer MEDICARE, OTHER ==
[2019-03-10] MEDS ORDERED: IPRATROPIUM-ALBUTEROL 3 ML NEB INHALATION STA (10:44)
[2019-03-10] MEDS ORDERED: PROMETHAZ-COD 6.25-10 MG/5 ML 5 ML CUP PO STA (10:44)
--- NOTE | 2019-03-10 10:56 | ED ---
URI HPI - General Chief Complaint: Upper Respiratory Infection Stated Complaint: COUGH Hx OF PNEUMONIA Time Seen by Provider: 03/10/19 10:32 Source: patient, RN notes reviewed Mode of arrival: ambulatory Limitations: no limitations - History of Present Illness Initial Comments: 49-year-old female presents emergency Department with chief complaint of cough for last 7 days . Patient states that she was hospitalized at the end of last year for pneumonia. Patient is a smoker but states that she has not been diagnosed with COPD. Patient did follow-up outpatient with Dr. Solitario. Patient has been using her inhaler which has helped some. Patient also tried [id number] medications with no relief. Patient denies fever, chills, night sweats. She states her cough is occasionally productive but primarily dry. Denies nasal congestion, sore throat, headache or dizziness. - Related Data Home Medications Medication Instructions Recorded Confirmed Diazepam [Valium] 10 mg PO TID PRN 08/26/15 08/22/18 Estradiol [Estrace] 1 mg PO HS 07/19/16 08/22/18 Albuterol Inhaler [Ventolin Hfa 1 - 2 puff INHALATION RT-Q6H PRN 06/11/18 08/22/18 Inhaler] Imitrex (Unknown Dose) 1 dose IM DIRECTED PRN 06/11/18 08/22/18 Ziprasidone [Geodon] 60 mg PO HS 08/22/18 08/22/18 carBAMazepine [TEGretol XR] 400 mg PO HS 08/22/18 08/22/18 Previous Rx's Medication Instructions Recorded Budesonide-Formot 160-4.5 Mcg 2 puff INHALATION BID #1 inhaler 08/29/18 [Symbicort 160-4.5 Mcg Inhaler] Ipratropium-Albuterol Nebulize 3 ml INHALATION Q4HR PRN #30 day 08/29/18 [Duoneb 0.5 mg-3 mg/3 ml Soln] Levofloxacin [Levaquin] 750 mg PO DAILY #3 tab 08/29/18 predniSONE 0 mg PO DIRECTED #30 tab 08/29/18 Azithromycin [Zithromax Z-pack] 0 mg PO DIRECTED #1 pack 03/10/19 predniSONE 50 mg PO DAILY #5 tab 03/10/19 Allergies Allergy/AdvReac Type Severity Reaction Status Date / Time Penicillins Allergy Severe Anaphylaxis Verified 03/10/19 10:29 Iodinated Contrast- Oral and Allergy Unknown Rash/Hives Verified 03/10/19 10:29 IV Dye [Iodinated Contrast Media - IV Dye] egg yolk Allergy Unknown Verified 03/10/19 10:29 mustard Allergy Unknown Verified 03/10/19 10:29 sulfamethoxazole Allergy Rash/Hives Verified 03/10/19 10:30 [From Bactrim] trimethoprim [From Bactrim] Allergy Rash/Hives Verified 03/10/19 10:30 Review of Systems ROS Statement: Those systems with pertinent positive or pertinent negative responses have been documented in the HPI. ROS Other: All systems not noted in ROS Statement are negative. Past Medical History Past Medical History: Cancer, COPD, Fibromyalgia, GERD/Reflux, Hypertension, Osteoarthritis (OA), Seizure Disorder Additional Past Medical History / Comment(s): HX CERVICAL CA(sx only), MIGRAINES, POSITIVE HPV, FREQUENT CONSTIPATION- last bm 08-21-18. LAST SEIZURE summer 2016. , H-PYLORI, COMPRESSION FX BACK, LOW THYROID. History of Any Multi-Drug Resistant Organisms: MRSA Date of last positivie culture/infection: NOVEMBER 2012 MDRO Source:: RT ELBOW Past Surgical History: Breast Surgery, Cholecystectomy, Hysterectomy, Orthopedic Surgery, Tonsillectomy, Tubal Ligation Additional Past Surgical History / Comment(s): RT ROTATOR CUFF REPAIR. SHAWANDA HIP SURGERY (INJURY). BREAST AUGMENTATION, LUMP LT NECK removed/bx benign, RT ELBOW SURGERY FOR MRSA INFECTION.CARMEN FUNDOPLASTY (11/24/15). EGD and balloon dilatation-12/23/15, 12/31 2016: Revision of fundoplication, bilateral oophorectomy for ovarian cysts,ended up with total hysterectomy Past Anesthesia/Blood Transfusion Reactions: No Reported Reaction, Family History of Problems w/ Anesthesia Additional Past Anesthesia/Blood Transfusion Reaction / Comment(s): MOTHER= A- FIB WITH ANESTHESIA. Past Psychological History: Anxiety, Bipolar, Depression Smoking Status: Current every day smoker Past Alcohol Use History: None Reported Past Drug Use History: None Reported - Past Family History Father Family Medical History: Hypertension Additional Family Medical History / Comment(s): Father at age 58 most likely due to complications from alcoholism and drug addiction. He also had history of hypertension and glaucoma. Brother(s) Family Medical History: No Reported History Additional Family Medical History / Comment(s): She has one brother that is a recovered alcoholic with no other major medical problems. Sister(s) Additional Family Medical History / Comment(s): Patient has one sister that suffers from depression and anxiety Mother Family Medical History: Cancer, Dementia, Deep Vein Thrombosis (DVT), Hypertension, Pulmonary Embolus Additional Family Medical History / Comment(s): history of corneal transplant, hypertension, diabetes, BREAST CA. Maternal grandmother history of breast cancer General Exam General appearance: alert, in no apparent distress Head exam: Present: atraumatic, normocephalic, normal inspection Eye exam: Present: normal appearance, PERRL, EOMI. Absent: scleral icterus, conjunctival injection, periorbital swelling ENT exam: Present: normal exam, normal oropharynx, mucous membranes moist, TM's normal bilaterally, normal external ear exam Neck exam: Present: normal inspection, full ROM. Absent: tenderness, meningismus, lymphadenopathy Respiratory exam: Present: wheezes. Absent: normal lung sounds bilaterally, respiratory distress, rales, rhonchi, stridor Cardiovascular Exam: Present: regular rate, normal rhythm, normal heart sounds. Absent: systolic murmur, diastolic murmur, rubs, gallop, clicks Neurological exam: Present: alert, oriented X3, CN II-XII intact Skin exam: Present: warm, dry, intact, normal color. Absent: rash Course Vital Signs 03/10/19 10:26 Temperature 98.5 F Pulse Rate 99 Respiratory 18 Rate Blood Pressure 130/88 O2 Sat by Pulse 97 Oximetry Medical Decision Making - Medical Decision Making 41-year-old female presents emergency from for cough congestion. Chest x-ray reviewed no acute abnormality. Patient has underlying smoking history concern for mild COPD. Patient will be she for acute bronchitis with steroids, antibiotics. Patient will follow-up for recheck with Dr. Solitario and return for any worsening symptoms Disposition Clinical Impression: Bronchitis Disposition: HOME SELF-CARE Condition: Stable Instructions (If sedation given, give patient instructions): Upper Respiratory Infection (ED) Additional Instructions: Please return to the Emergency Department if symptoms worsen or any other concerns. Prescriptions: predniSONE 50 mg PO DAILY #5 tab Azithromycin [Zithromax Z-pack] 0 mg PO DIRECTED #1 pack Is patient prescribed a controlled substance at d/c from ED?: No Referrals: Govind Covington MD [Primary Care Provider] - 1-2 days Time of Disposition: 11:35
--- NOTE | 2019-03-10 11:05 | XR ---
EXAMINATION TYPE: XR chest 2V DATE OF EXAM ORDERED: 03/10/2019 HISTORY: Cough/pain. REFERENCE: Previous study dated 08/28/2018. FINDINGS: The lungs are clear. Pleural spaces are clear. Heart size is normal. IMPRESSION: NORMAL CHEST.
[2019-03-10] MEDS ORDERED: methylPREDNISolone SOD SUCCI 125 MG/2 ML VIAL IM ONE (11:35)
[2019-03-10] MEDS ORDERED: cefTRIAXone 1,000 MG VIAL (IM USE) IM STA (11:35)
[2019-03-10 12:34] VITALS: BP 120/87; PULSE 91; RESP 20; TEMP 98.4
== END 2019-03-10 12:30 | disposition home or self-care (01) ==
LOC: EC 10:15
DX: J20.9 Acute bronchitis, unspecified (principal); J44.0 Chronic obstructive pulmonary disease with (acute) lower respiratory infection; F41.9 Anxiety disorder, unspecified; F31.9 Bipolar disorder, unspecified; G40.909 Epilepsy, unspecified, not intractable, without status epilepticus; F17.200 Nicotine dependence, unspecified, uncomplicated; Z79.899 Other long term (current) drug therapy; Z88.0 Allergy status to penicillin; Z91.018 Allergy to other foods; Z91.041 Radiographic dye allergy status; Z88.1 Allergy status to other antibiotic agents; Z88.2 Allergy status to sulfonamides; Z85.41 Personal history of malignant neoplasm of cervix uteri
CPT/HCPCS: 94640; 71046; 99283; 96372 ×2; J2930; J0696

== ENCOUNTER 2019-04-09 22:39 | Emergency (ER) | payer MEDICARE, OTHER ==
[2019-04-10 00:10] LABS: Basophils % (A) 1 %; Eosinophils # (A) 0.2 k/uL (0-0.7); Eosinophils % (A) 3 %; HCT 39.8 % (34.0-46.0); HGB 13.3 gm/dL (11.4-16.0); Lymphocytes # (A) 2.8 k/uL (1.0-4.8); Lymphocytes % (A) 52 %; MCH 34.3 pg (25.0-35.0); MCHC 33.4 g/dL (31.0-37.0); Macrocytosis Slight; Mean Platelet Volume 7.7; Monocytes # (A) 0.2 k/uL (0-1.0); Monocytes % (A) 4 %; Neutrophils % (A) 38 %; Platelet Count 210 k/uL (150-450); RBC 3.87 m/uL (3.80-5.40); WBC 5.3 k/uL (3.8-10.6)
[2019-04-10 00:11] LABS: MCV 102.8 fL (80.0-100.0)
--- NOTE | 2019-04-10 00:11 | XR ---
EXAM: XR Chest, 2 Views CLINICAL HISTORY: ITS.REASON XR Reason: Chest Pain TECHNIQUE: Frontal and lateral views of the chest. COMPARISON: No relevant prior studies available. FINDINGS: Lungs: Unremarkable. No consolidation. Pleural space: Unremarkable. No pneumothorax. Heart: No suspicious enlargement. Mediastinum: Unremarkable. Bones/joints: No acute fracture. IMPRESSION: No acute findings.
[2019-04-10 00:19] LABS: INR 0.9 (<1.2); Partial Thromboplastin Time 24.5 sec (22.0-30.0)
[2019-04-10 00:20] LABS: ALT 14 U/L (9-52); AST 16 U/L (14-36); African American GFR (CKD) >90 (>60 ml/min/1.73 sqM); Albumin 4.2 g/dL (3.5-5.0); Alkaline Phosphatase 88 U/L (38-126); Anion Gap 11 mmol/L; Blood Urea Nitrogen 15 mg/dL (7-17); Calcium 9.4 mg/dL (8.4-10.2); Carbon Dioxide 19 mmol/L (22-30); Chloride 110 mmol/L (98-107); Glucose 77 mg/dL (74-99); Magnesium 2.1 mg/dL (1.6-2.3); Potassium 3.7 mmol/L (3.5-5.1); Sodium 140 mmol/L (137-145); Total Bilirubin 0.3 mg/dL (0.2-1.3); Total Protein 6.8 g/dL (6.3-8.2)
[2019-04-10] MEDS ORDERED: FAMOTIDINE 20 MG/2 ML VIAL IV STA (01:36)
[2019-04-10] MEDS ORDERED: diphenhydrAMINE 50 MG/ML 1 ML VIAL IVP STA (01:36)
[2019-04-10] MEDS ORDERED: methylPREDNISolone SOD SUCCI 125 MG/2 ML VIAL IV STA (01:37)
[2019-04-10 02:40] VITALS: PULSE 64; RESP 18; TEMP 98
--- NOTE | 2019-04-10 02:46 | CT ---
EXAM: CT Neck With Intravenous Contrast CLINICAL HISTORY: ITS.REASON CT Reason: Pain TECHNIQUE: Axial computed tomography images of the neck with intravenous contrast. This CT exam was performed using one or more of the following dose reduction techniques: automated exposure control, adjustment of the mA and/or kV according to patient size, and/or use of iterative reconstruction technique. COMPARISON: No relevant prior studies available. FINDINGS: Oropharynx: Unremarkable. No significant tonsillar enlargement. No peritonsillar abscess. Hypopharynx: Unremarkable. Larynx: Unremarkable. Normal epiglottis. Trachea: Unremarkable. Retropharyngeal space: Unremarkable. Submandibular/parotid glands: Unremarkable. Glands are normal in size. Thyroid: No suspicious nodules. Bones/joints: No acute fracture. Soft tissues: Unremarkable. Vasculature: No suspicious findings. Lymph nodes: Unremarkable. No lymphadenopathy. Lung apices: Unremarkable as visualized. IMPRESSION: No acute findings.
--- NOTE | 2019-04-10 03:03 | ED ---
General Adult HPI - General Chief complaint: ENT Stated complaint: Food Stuck in throat Time Seen by Provider: 04/09/19 23:00 Source: patient, RN notes reviewed, old records reviewed Mode of arrival: ambulatory Limitations: no limitations - History of Present Illness Initial comments: 49-year-old female patient past medical history of fibromyalgia, COPD, status post hysterectomy, cholecystectomy presents to ED with multiple complaints. Patient reports that 4 days ago she swallowed a very hard piece of chicken which caused pain as it traveled down her esophagus. Patient states that she does not feels that it is stuck. Patient was that due to the pain she has been restricted to eating soft foods and drinks. Patient is able to pass those drinks about difficulty. Patient has secondary complaint of 2 days of waxing and waning chest pain. Patient reports that it is a transient sharp pain in her left parasternal region. Patient denies any association with exertion, denies any shortness of breath. Patient denies any other complaints at this time. Denies any pleuritic chest pain, denies any sob. Systemic: Pt denies fatigue, fever/chills, rash. Pt denies weakness, night sweats, weight loss. Neuro: Pt denies headache, visual disturbances, syncope or pre-syncope. HEENT: Pt denies ocular discharge or irritation, otalgia, rhinorrhea, phary ngitis or notable lymphadenopathy. Cardiopulmonary: Pt denies SOB, heart palpitations, dyspnea on exertion. Abdominal/GI: Pt denies abdominal pain, n/v/d. : Pt denies dysuria, burning w/ urination, frequency/urgency. Denies new onset urinary or bowel incontinence. MSK: Pt denies myalgia, loss of strength or function in extremities. Neuro: Pt denies new onset weakness, paresthesias. - Related Data Home Medications Medication Instructions Recorded Confirmed Diazepam [Valium] 10 mg PO TID PRN 08/26/15 04/09/19 Estradiol [Estrace] 1 mg PO HS 07/19/16 04/09/19 Albuterol Inhaler [Ventolin Hfa 1 - 2 puff INHALATION RT-Q6H PRN 06/11/18 0 04/09/19 Inhaler] carBAMazepine [TEGretol XR] 400 mg PO HS 08/22/18 04/09/19 Brexpiprazole [Rexulti] 1 mg PO HS 04/09/19 04/09/19 Budesonide-Formot 160-4.5 Mcg 2 puff INHALATION RT-BID 04/09/19 04/09/19 [Symbicort 160-4.5 Mcg Inhaler] Clindamycin HCl [Cleocin] 300 mg PO TID 04/09/19 04/09/19 Fluticasone Nasal [place] [Flonase 2 spr EA NOSTRIL BID 04/09/19 04/09/19 Nasal [place]] Ipratropium-Albuterol Nebulize 3 ml INHALATION RT-QID PRN 04/09/19 04/09/19 [Duoneb 0.5 mg-3 mg/3 ml Soln] Loratadine [Claritin] 10 mg PO HS PRN 04/09/19 04/09/19 Ofloxacin 0.3% Otic Soln [Floxin 10 drops RIGHT EAR BID 04/09/19 04/09/19 0.3% Otic Soln] SUMAtriptan SUCCINATE [Sumatriptan 6 mg SQ DAILY PRN 04/09/19 04/09/19 Succinate] Allergies Allergy/AdvReac Type Severity Reaction Status Date / Time Penicillins Allergy Severe Anaphylaxis Verified 04/09/19 23:18 Iodinated Contrast- Oral and Allergy Unknown Rash/Hives Verified 04/09/19 23:18 IV Dye [Iodinated Contrast Media - IV Dye] egg yolk Allergy Unknown Verified 04/09/19 23:18 mustard Allergy Unknown Verified 04/09/19 23:18 sulfamethoxazole Allergy Rash/Hives Verified 04/09/19 23:18 [From Bactrim] trimethoprim [From Bactrim] Allergy Rash/Hives Verified 04/09/19 23:18 Review of Systems ROS Statement: Those systems with pertinent positive or pertinent negative responses have been documented in the HPI. ROS Other: All systems not noted in ROS Statement are negative. Past Medical History Past Medical History: Cancer, COPD, Fibromyalgia, GERD/Reflux, Hypertension, Osteoarthritis (OA), Seizure Disorder Additional Past Medical History / Comment(s): HX CERVICAL CA(sx only), MIGRAINES, POSITIVE HPV, FREQUENT CONSTIPATION- last bm 08-21-18. LAST SEIZURE summer 2016. , H-PYLORI, COMPRESSION FX BACK, LOW THYROID. History of Any Multi-Drug Resistant Organisms: MRSA Date of last positivie culture/infection: NOVEMBER 2012 MDRO Source:: RT ELBOW Past Surgical History: Breast Surgery, Cholecystectomy, Hysterectomy, Orthopedic Surgery, Tonsillectomy, Tubal Ligation Additional Past Surgical History / Comment(s): RT ROTATOR CUFF REPAIR. SHAWANDA HIP SURGERY (INJURY). BREAST AUGMENTATION, LUMP LT NECK removed/bx benign, RT ELBOW SURGERY FOR MRSA INFECTION.CARMEN FUNDOPLASTY (11/24/15). EGD and balloon dilatation-12/23/15, 12/31 2016: Revision of fundoplication, bilateral oophorectomy for ovarian cysts,ended up with total hysterectomy Past Anesthesia/Blood Transfusion Reactions: No Reported Reaction, Family History of Problems w/ Anesthesia Additional Past Anesthesia/Blood Transfusion Reaction / Comment(s): MOTHER= A- FIB WITH ANESTHESIA. Past Psychological History: Anxiety, Bipolar, Depression Smoking Status: Current every day smoker Past Alcohol Use History: None Reported Past Drug Use History: Marijuana - Past Family History Father Family Medical History: Hypertension Additional Family Medical History / Comment(s): Father at age 58 most likely due to complications from alcoholism and drug addiction. He also had history of hypertension and glaucoma. Brother(s) Family Medical History: No Reported History Additional Family Medical History / Comment(s): She has one brother that is a re covered alcoholic with no other major medical problems. Sister(s) Additional Family Medical History / Comment(s): Patient has one sister that suffers from depression and anxiety Mother Family Medical History: Cancer, Dementia, Deep Vein Thrombosis (DVT), Hypertension, Pulmonary Embolus Additional Family Medical History / Comment(s): history of corneal transplant, hypertension, diabetes, BREAST CA. Maternal grandmother history of breast cancer General Exam - General Exam Comments Initial Comments: Constitutional: NAD, AOX3, Pt has pleasant affect. HEENT: NC/AT, trachea midline, neck supple, no lymphadenopathy. Posterior pharynx non erythematous, without exudates. External ears appear normal, without discharge. Mucous membranes moist. Eyes PERRLA, EOM intact. There is no scleral icterus. No pallor noted. Cardiopulmonary: RRR, no murmurs, rubs or gallops, no JVD noted. Lungs CTAB in anterior and posterior kahn. No peripheral edema. Abdominal exam: Abdomen soft and non-distended. Abdomen non-tender to palpation in all 4 quadrants. Bowel sounds active in LLQ. No hepatosplenomegaly. No ecchymosis Neuro: CN II-XII grossly intact. No nuchal rigidity. No raccon eyes, no gaviria sign, no hemotympanum. No cervical spinal tenderness. MSK: No posterior calf tenderness bilaterally, homans sign negative bilaterally. Posterior tibialis and radial pulse +2 bilaterally. Sensation intact in upper and lower extremities. Full active ROM in upper and lower extremities, 5/5 stregnth. Limitations: no limitations Course Vital Signs 04/09/19 04/10/19 04/10/19 22:43 00:29 02:00 Temperature 98.6 F 97.4 F L 98 F Pulse Rate 92 72 64 Respiratory 18 16 18 Rate Blood Pressure 148/101 117/82 133/76 O2 Sat by Pulse 98 96 98 Oximetry Medical Decision Making - Medical Decision Making 49-year-old female patient past medical history of fibromyalgia, COPD, status post hysterectomy, cholecystectomy presents to ED with multiple complaints. Patient reports that 4 days ago she swallowed a very hard piece of chicken which caused pain as it traveled down her esophagus. Patient states that she does not feels that it is stuck. Patient was that due to the pain she has been restricted to eating soft foods and drinks. Patient is able to pass those drinks about difficulty. Patient has secondary complaint of 2 days of waxing and waning chest pain. Patient reports that it is a transient sharp pain in her left parasternal region. Patient denies any association with exertion, denies any shortness of breath. Patient denies any other complaints at this time. Patient vital signs stable, afebrile. Physical exam did not display acute pathology. Laboratory investigations noncompressive. Patient reports that she wishes to have CT of neck. CT of neck did not display acute process. EKG not concerning for For acute ischemia. Troponin negative. Chest x-ray revealed no acute process. Patient chest pain atypical in nature. Patient not currently experiencing any chest pain. Patient will be discharged, follow-up with primary care provider and Dr. Camara. Case discussed with Dr. Alvarez. - Lab Data Result diagrams: 04/10/19 00:01 04/10/19 00:01 Lab Results 04/10/19 04/10/19 04/10/19 Range/Units 00:01 00:01 00:01 WBC 5.3 (3.8-10.6) k/uL RBC 3.87 (3.80-5.40) m/uL Hgb 13.3 (11.4-16.0) gm/dL Hct 39.8 (34.0-46.0) % MCV 102.8 H D (80.0-100.0) fL MCH 34.3 (25.0-35.0) pg MCHC 33.4 (31.0-37.0) g/dL RDW 15.0 (11.5-15.5) % Plt Count 210 (150-450) k/uL Neutrophils % 38 % Lymphocytes % 52 % Monocytes % 4 % Eosinophils % 3 % Basophils % 1 % Neutrophils # 2.0 (1.3-7.7) k/uL Lymphocytes # 2.8 (1.0-4.8) k/uL Monocytes # 0.2 (0-1.0) k/uL Eosinophils # 0.2 (0-0.7) k/uL Basophils # 0.0 (0-0.2) k/uL Macrocytosis Slight PT 10.0 (9.0-12.0) sec INR 0.9 (<1.2) APTT 24.5 (22.0-30.0) sec Sodium 140 (137-145) mmol/L Potassium 3.7 (3.5-5.1) mmol/L Chloride 110 H (98-107) mmol/L Carbon Dioxide 19 L (22-30) mmol/L Anion Gap 11 mmol/L BUN 15 (7-17) mg/dL Creatinine 0.73 (0.52-1.04) mg/dL Est GFR (CKD-EPI)AfAm >90 (>60 ml/min/1.73 sqM) Est GFR (CKD-EPI)NonAf >90 (>60 ml/min/1.73 sqM) Glucose 77 (74-99) mg/dL Calcium 9.4 (8.4-10.2) mg/dL Magnesium 2.1 (1.6-2.3) mg/dL Total Bilirubin 0.3 (0.2-1.3) mg/dL AST 16 (14-36) U/L ALT 14 (9-52) U/L Alkaline Phosphatase 88 (38-126) U/L Troponin I (0.000-0.034) ng/mL Total Protein 6.8 (6.3-8.2) g/dL Albumin 4.2 (3.5-5.0) g/dL 04/10/19 Range/Units 00:01 WBC (3.8-10.6) k/uL RBC (3.80-5.40) m/uL Hgb (11.4-16.0) gm/dL Hct (34.0-46.0) % MCV (80.0-100.0) fL MCH (25.0-35.0) pg MCHC (31.0-37.0) g/dL RDW (11.5-15.5) % Plt Count (150-450) k/uL Neutrophils % % Lymphocytes % % Monocytes % % Eosinophils % % Basophils % % Neutrophils # (1.3-7.7) k/uL Lymphocytes # (1.0-4.8) k/uL Monocytes # (0-1.0) k/uL Eosinophils # (0-0.7) k/uL Basophils # (0-0.2) k/uL Macrocytosis PT (9.0-12.0) sec INR (<1.2) APTT (22.0-30.0) sec Sodium (137-145) mmol/L Potassium (3.5-5.1) mmol/L Chloride (98-107) mmol/L Carbon Dioxide (22-30) mmol/L Anion Gap mmol/L BUN (7-17) mg/dL Creatinine (0.52-1.04) mg/dL Est GFR (CKD-EPI)AfAm (>60 ml/min/1.73 sqM) Est GFR (CKD-EPI)NonAf (>60 ml/min/1.73 sqM) Glucose (74-99) mg/dL Calcium (8.4-10.2) mg/dL Magnesium (1.6-2.3) mg/dL Total Bilirubin (0.2-1.3) mg/dL AST (14-36) U/L ALT (9-52) U/L Alkaline Phosphatase (38-126) U/L Troponin I <0.012 (0.000-0.034) ng/mL Total Protein (6.3-8.2) g/dL Albumin (3.5-5.0) g/dL Disposition Clinical Impression: Painful swallowing, Atypical chest pain Disposition: HOME SELF-CARE Condition: Stable Instructions (If sedation given, give patient instructions): Chest Pain (ED) Additional Instructions: Patient to adhere to previously discussed treatment plan and will take medication(s) as directed. Patient to follow up with PCP in 1-2 days. Patient to return to ED if symptoms do not improve. Follow-up with primary care physician as well as Dr. Camara tomorrow. Return to ER if condition worsens. Is patient prescribed a controlled substance at d/c from ED?: No Referrals: Rocky Morris III, MD [Primary Care Provider] - 1-2 days Sebastian Moss MD [STAFF PHYSICIAN] - 1-2 days
--- NOTE | 2019-04-10 03:08 | ED ---
Medical Decision Making - Lab Data Result diagrams: 04/10/19 00:01 04/10/19 00:01 Lab Results 04/10/19 04/10/19 04/10/19 Range/Units 00:01 00:01 00:01 WBC 5.3 (3.8-10.6) k/uL RBC 3.87 (3.80-5.40) m/uL Hgb 13.3 (11.4-16.0) gm/dL Hct 39.8 (34.0-46.0) % MCV 102.8 H D (80.0-100.0) fL MCH 34.3 (25.0-35.0) pg MCHC 33.4 (31.0-37.0) g/dL RDW 15.0 (11.5-15.5) % Plt Count 210 (150-450) k/uL Neutrophils % 38 % Lymphocytes % 52 % Monocytes % 4 % Eosinophils % 3 % Basophils % 1 % Neutrophils # 2.0 (1.3-7.7) k/uL Lymphocytes # 2.8 (1.0-4.8) k/uL Monocytes # 0.2 (0-1.0) k/uL Eosinophils # 0.2 (0-0.7) k/uL Basophils # 0.0 (0-0.2) k/uL Macrocytosis Slight PT 10.0 (9.0-12.0) sec INR 0.9 (<1.2) APTT 24.5 (22.0-30.0) sec Sodium 140 (137-145) mmol/L Potassium 3.7 (3.5-5.1) mmol/L Chloride 110 H (98-107) mmol/L Carbon Dioxide 19 L (22-30) mmol/L Anion Gap 11 mmol/L BUN 15 (7-17) mg/dL Creatinine 0.73 (0.52-1.04) mg/dL Est GFR (CKD-EPI)AfAm >90 (>60 ml/min/1.73 sqM) Est GFR (CKD-EPI)NonAf >90 (>60 ml/min/1.73 sqM) Glucose 77 (74-99) mg/dL Calcium 9.4 (8.4-10.2) mg/dL Magnesium 2.1 (1.6-2.3) mg/dL Total Bilirubin 0.3 (0.2-1.3) mg/dL AST 16 (14-36) U/L ALT 14 (9-52) U/L Alkaline Phosphatase 88 (38-126) U/L Troponin I (0.000-0.034) ng/mL Total Protein 6.8 (6.3-8.2) g/dL Albumin 4.2 (3.5-5.0) g/dL 04/10/19 Range/Units 00:01 WBC (3.8-10.6) k/uL RBC (3.80-5.40) m/uL Hgb (11.4-16.0) gm/dL Hct (34.0-46.0) % MCV (80.0-100.0) fL MCH (25.0-35.0) pg MCHC (31.0-37.0) g/dL RDW (11.5-15.5) % Plt Count (150-450) k/uL Neutrophils % % Lymphocytes % % Monocytes % % Eosinophils % % Basophils % % Neutrophils # (1.3-7.7) k/uL Lymphocytes # (1.0-4.8) k/uL Monocytes # (0-1.0) k/uL Eosinophils # (0-0.7) k/uL Basophils # (0-0.2) k/uL Macrocytosis PT (9.0-12.0) sec INR (<1.2) APTT (22.0-30.0) sec Sodium (137-145) mmol/L Potassium (3.5-5.1) mmol/L Chloride (98-107) mmol/L Carbon Dioxide (22-30) mmol/L Anion Gap mmol/L BUN (7-17) mg/dL Creatinine (0.52-1.04) mg/dL Est GFR (CKD-EPI)AfAm (>60 ml/min/1.73 sqM) Est GFR (CKD-EPI)NonAf (>60 ml/min/1.73 sqM) Glucose (74-99) mg/dL Calcium (8.4-10.2) mg/dL Magnesium (1.6-2.3) mg/dL Total Bilirubin (0.2-1.3) mg/dL AST (14-36) U/L ALT (9-52) U/L Alkaline Phosphatase (38-126) U/L Troponin I <0.012 (0.000-0.034) ng/mL Total Protein (6.3-8.2) g/dL Albumin (3.5-5.0) g/dL - EKG Data -: EKG Interpreted by Me EKG Comments: Ventricular rate 69, ME interval 154, QRS 86, QT/QTc 44/432. 7, low voltage qrs, borderline ekg. no concern for acute ischemia. Disposition Clinical Impression: Painful swallowing, Atypical chest pain Disposition: HOME SELF-CARE Condition: Stable Instructions (If sedation given, give patient instructions): Chest Pain (ED) Additional Instructions: Patient to adhere to previously discussed treatment plan and will take medication(s) as directed. Patient to follow up with PCP in 1-2 days. Patient to return to ED if symptoms do not improve. Follow-up with primary care physician as well as Dr. Camara tomorrow. Return to ER if condition worsens. Is patient prescribed a controlled substance at d/c from ED?: No Referrals: Rocky Morris III, MD [Primary Care Provider] - 1-2 days Sebastian Moss MD [STAFF PHYSICIAN] - 1-2 days
[2019-04-10] MEDS ORDERED: SODIUM CHLORIDE 0.9% 500 ML 500 ML IV STA (03:11)
[2019-04-10 03:31] VITALS: BP 130/70
== END 2019-04-10 03:27 | disposition home or self-care (01) ==
LOC: EC 22:39
DX: R13.10 Dysphagia, unspecified (principal); R07.89 Other chest pain; J44.9 Chronic obstructive pulmonary disease, unspecified; K21.9 Gastro-esophageal reflux disease without esophagitis; I10 Essential (primary) hypertension; M19.90 Unspecified osteoarthritis, unspecified site; G40.909 Epilepsy, unspecified, not intractable, without status epilepticus; F31.9 Bipolar disorder, unspecified; F41.9 Anxiety disorder, unspecified; F17.200 Nicotine dependence, unspecified, uncomplicated; Z85.41 Personal history of malignant neoplasm of cervix uteri; Z86.14 Personal history of Methicillin resistant Staphylococcus aureus infection; Z79.51 Long term (current) use of inhaled steroids; Z79.899 Other long term (current) drug therapy; Z79.818 Long term (current) use of other agents affecting estrogen receptors and estrogen levels; Z88.0 Allergy status to penicillin; Z88.1 Allergy status to other antibiotic agents; Z88.2 Allergy status to sulfonamides; Z91.041 Radiographic dye allergy status; Z91.012 Allergy to eggs; Z91.018 Allergy to other foods
CPT/HCPCS: 36415; 70491; 71046; 80053; 83735; 84484; 85025; 85610; 85730; 96374; 96375; 99284

== ENCOUNTER → 2019-04-11 | Outpatient (CLI) | payer MEDICARE, OTHER ==
--- NOTE | 2019-04-11 09:35 | FL ---
EXAMINATION TYPE: FL barium swallow DATE OF EXAM: 04/11/2019 LIMITED UGI-ESOPHAGRAM: CLINICAL HISTORY: History of Partha fundoplication surgery 2016 with revision with new onset dysphas ia for 3 days after eating. TECHNIQUE: Limited esophagram is performed utilizing thin liquid barium. A total of 38 seconds of fl uoroscopic time was utilized during procedure. 61 spot images are saved to PACS. Comparison: CT neck study from yesterday. FINDINGS: The patient swallowed contrast without difficulty or delay. Esophageal peristalsis and mo tility are within normal limits. Numerous air bubbles are seen, no intraluminal foreign body clearly identified. There is good flow of contrast along the diaphragmatic hiatus into the stomach, there is no evidence of contrast extravasation to suggest leak. No recurrent hiatal hernia is seen. Patient sh ows no increased symptoms of nausea or dysphasia. IMPRESSION: No evidence of intraluminal foreign body or new significant stricture/stenosis.
== END | disposition home or self-care (01) ==
LOC: RADUSWWP 08:56
PROVIDERS: ATTEND Surgery
DX: R13.10 Dysphagia, unspecified (principal)
CPT/HCPCS: 74220

== ENCOUNTER 2019-04-15 08:24 | Day surgery (SDC) | payer MEDICARE, OTHER ==
[2019-04-12 11:32] VITALS: BMI 20.2
[~2019-04-15 08:24] MED LIST changes: -HYDROmorphone 0.5 MG/0.5 ML SYRINGE IVP PRN
[2019-04-15 08:58] VITALS: RESP 16; TEMP 98
[2019-04-15] MEDS ORDERED: PROPOFOL 10 MG/ML 20 ML VIAL IV ONE (09:25)
[2019-04-15] MEDS ORDERED: LIDOCAINE 1% INJ 10MG/ML (20 ML MDV) ONE (09:25)
--- NOTE | 2019-04-15 09:31 | P.GSHP ---
History of Present Illness H&P Date: 04/15/19 Chief Complaint: GERD This is a 41-year-old female with history of GERD. Patient is today for EGD. Patient states that she feels like food is sticking in her throat. Past Medical History Past Medical History: Cancer, COPD, Fibromyalgia, GERD/Reflux, Hypertension, Osteoarthritis (OA), Seizure Disorder Additional Past Medical History / Comment(s): HX CERVICAL CA(sx only), MIGRAINES, POSITIVE HPV, FREQUENT CONSTIPATION- last bm 08-21-18. LAST SEIZURE summer 2016. , H-PYLORI, COMPRESSION FX BACK, LOW THYROID. History of Any Multi-Drug Resistant Organisms: MRSA Date of last positivie culture/infection: NOVEMBER 2012 MDRO Source:: RT ELBOW Past Surgical History: Breast Surgery, Cholecystectomy, Hysterectomy, Orthopedic Surgery, Tonsillectomy, Tubal Ligation Additional Past Surgical History / Comment(s): RT ROTATOR CUFF REPAIR. SHAWANDA HIP SURGERY (INJURY). BREAST AUGMENTATION, LUMP LT NECK removed/bx benign, RT ELBOW SURGERY FOR MRSA INFECTION.CARMEN FUNDOPLASTY (11/24/15). EGD and balloon dilatation-12/23/15, 12/31 2016: Revision of fundoplication, bilateral oophorectomy for ovarian cysts,ended up with total hysterectomy Past Anesthesia/Blood Transfusion Reactions: No Reported Reaction, Family History of Problems w/ Anesthesia Additional Past Anesthesia/Blood Transfusion Reaction / Comment(s): MOTHER= A- FIB WITH ANESTHESIA. Smoking Status: Current every day smoker - Past Family History Father Family Medical History: Hypertension Additional Family Medical History / Comment(s): Father at age 58 most likely due to complications from alcoholism and drug addiction. He also had history of hypertension and glaucoma. Brother(s) Family Medical History: No Reported History Additional Family Medical History / Comment(s): She has one brother that is a recovered alcoholic with no other major medical problems. Sister(s) Additional Family Medical History / Comment(s): Patient has one sister that suffers from depression and anxiety Mother Family Medical History: Cancer, Dementia, Deep Vein Thrombosis (DVT), Hypertension, Pulmonary Embolus Additional Family Medical History / Comment(s): history of corneal transplant, hypertension, diabetes, BREAST CA. Maternal grandmother history of breast cancer Medications and Allergies Home Medications Medication Instructions Recorded Confirmed Type Diazepam [Valium] 10 mg PO TID PRN 12/02/15 07/22/19 History Estradiol [Estrace] 1 mg PO HS 07/19/16 04/15/19 History Albuterol Inhaler [Ventolin Hfa 1 - 2 puff INHALATION RT-Q6H PRN 06/11/18 04/15/19 History Inhaler] carBAMazepine [TEGretol XR] 400 mg PO HS 08/22/18 04/15/19 History Brexpiprazole [Rexulti] 1 mg PO HS 04/09/19 04/15/19 History Budesonide-Formot 160-4.5 Mcg 2 puff INHALATION RT-BID 04/09/19 04/15/19 History [Symbicort 160-4.5 Mcg Inhaler] Clindamycin HCl [Cleocin] 300 mg PO TID 04/09/19 04/15/19 History Fluticasone Nasal [place] [Flonase 2 spr EA NOSTRIL BID 04/09/19 04/15/19 History Nasal [place]] Ipratropium-Albuterol Nebulize 3 ml INHALATION RT-QID PRN 04/09/19 04/15/19 History [Duoneb 0.5 mg-3 mg/3 ml Soln] Loratadine [Claritin] 10 mg PO HS PRN 04/09/19 04/15/19 History Ofloxacin 0.3% Otic Soln [Floxin 10 drops RIGHT EAR BID 04/09/19 04/15/19 History 0.3% Otic Soln] SUMAtriptan SUCCINATE [Sumatriptan 6 mg SQ DAILY PRN 04/09/19 04/15/19 History Succinate] Allergies Allergy/AdvReac Type Severity Reaction Status Date / Time Penicillins Allergy Severe Anaphylaxis Verified 04/15/19 08:58 Iodinated Contrast- Oral and Allergy Unknown Rash/Hives Verified 04/15/19 08:58 IV Dye [Iodinated Contrast Media - IV Dye] egg yolk Allergy Unknown Verified 04/15/19 08:58 mustard Allergy Unknown Verified 04/15/19 08:58 sulfamethoxazole Allergy Rash/Hives Verified 04/15/19 08:58 [From Bactrim] trimethoprim [From Bactrim] Allergy Rash/Hives Verified 04/15/19 08:58 Surgical - Exam Vital Signs Temp Pulse Resp BP Pulse Ox 98.0 F 68 16 163/90 99 07/22/19 08:57 04/15/19 08:57 04/15/19 08:57 04/15/19 08:57 04/15/19 08:57 - General well developed, well nourished, no distress - Eyes PERRL - ENT normal pinna - Neck no masses - Respiratory normal expansion - Cardiovascular Rhythm: regular - Abdomen Abdomen: soft, non tender Assessment and Plan Assessment: GERD. We'll perform EGD.
[2019-04-15 10:23] VITALS: BP 130/83; PULSE 57
--- NOTE | 2019-05-20 15:12 | P.OP ---
Date of Procedure: 04/15/19 Preoperative Diagnosis: GERD Postoperative Diagnosis: Antral gastritis Procedure(s) Performed: EGD Anesthesia: MAC Surgeon: Sebastian Moss Pathology: other (Antrum) Condition: stable Disposition: PACU Description of Procedure: The patient's placed on the endoscopy table in the lateral position. She rece ived IV sedation. The gastroscope placed oropharynx and passed in the esophagus into the stomach. Scope was then placed through the pylorus. The first and second portion of the duodenum appeared normal. Scope was then brought back the antrum and this was mildly inflamed. A biopsies performed. The scope was unretroflexed and remainder stomach appeared normal. The GE junction was at 40 cm the distal esophagus appeared normal. The proximal esophagus appeared normal. Scope was withdrawn for patient.
== END 2019-04-15 10:27 | disposition home or self-care (01) ==
LOC: ORWHC2ENDO 08:24
PROVIDERS: ATTEND Surgery
DX: K29.50 Unspecified chronic gastritis without bleeding (principal); A04.8 Other specified bacterial intestinal infections; K21.9 Gastro-esophageal reflux disease without esophagitis; J44.9 Chronic obstructive pulmonary disease, unspecified; M79.7 Fibromyalgia; I10 Essential (primary) hypertension; M19.90 Unspecified osteoarthritis, unspecified site; E03.9 Hypothyroidism, unspecified; A63.0 Anogenital (venereal) warts; G40.909 Epilepsy, unspecified, not intractable, without status epilepticus; Z86.14 Personal history of Methicillin resistant Staphylococcus aureus infection; Z90.710 Acquired absence of both cervix and uterus; Z98.51 Tubal ligation status; Z94.7 Corneal transplant status; F17.200 Nicotine dependence, unspecified, uncomplicated; Z85.41 Personal history of malignant neoplasm of cervix uteri; Z82.49 Family history of ischemic heart disease and other diseases of the circulatory system; Z83.3 Family history of diabetes mellitus; Z80.3 Family history of malignant neoplasm of breast; Z79.890 Hormone replacement therapy; Z79.51 Long term (current) use of inhaled steroids; Z79.899 Other long term (current) drug therapy; Z91.041 Radiographic dye allergy status; Z91.012 Allergy to eggs; Z88.0 Allergy status to penicillin; Z88.2 Allergy status to sulfonamides; Z91.018 Allergy to other foods
CPT/HCPCS: 88305; 88342; 43239; J2001; J2704

== ENCOUNTER → 2019-06-11 | Outpatient (CLI) | payer MEDICARE, OTHER ==
--- NOTE | 2019-06-11 13:06 | CT ---
EXAMINATION TYPE: CT sinus wo con DATE OF EXAM: 06/11/2019 COMPARISON: None HISTORY: 49 year-old female recurrent sinusitis, Chronic Sinusitis. CT DLP: 609.40 mGycm Automated exposure control for dose reduction was used. TECHNIQUE: Noncontrast axial views of the paranasal sinuses were obtained. Coronal reconstructions pe rformed. FINDINGS: PARANASAL SINUSES: Trace mucosal thickening seen along the floor of the left maxillary sinus. Otherwise, the frontal, ethmoid,, right maxillary, and bilateral sphenoid sinuses are clear and well pneumatized. There is no mucosal thickening or air-fluid level. Reactive lori- osteogenesis is not seen. There is no destruction of the osseous valero of the paranasal sinuses. THE NASAL CAVITY: The osteomeatal complexes are patent. Rightward nasal septal deviation. The imaged brain shows mild to moderate bifrontal cortical atrophy. Visualized orbits and globes are intact. Mastoid air cells and middle ear cavities are well pneumatized. Reformatted images confirm above findings. IMPRESSION: Only trace mucosal thickening along the floor of the left maxillary sinus and rightward nasal septal deviation.
== END | disposition home or self-care (01) ==
LOC: RADCTMAIN 10:41
PROVIDERS: ATTEND Internal Medicine
DX: J34.2 Deviated nasal septum (principal); Z88.1 Allergy status to other antibiotic agents; Z91.041 Radiographic dye allergy status
CPT/HCPCS: 70486

== ENCOUNTER 2019-07-29 13:09 | Emergency (ER) | payer MEDICARE, OTHER ==
[2019-07-29 13:15] VITALS: RESP 16; TEMP 98.1
--- NOTE | 2019-07-29 14:03 | XR ---
EXAMINATION TYPE: XR chest 2V DATE OF EXAM: 07/29/2019 COMPARISON: 04/09/2019 HISTORY: Cough. History of COPD. TECHNIQUE: Frontal and lateral views of the chest are obtained. FINDINGS: Linear right lower lobe opacity likely represents atelectasis. No other focal consolidatio n, pleural effusion or pneumothorax. Pulmonary hyperinflation is compatible with the patient's known COPD. Chronic slight right hemidiaphragm elevation. Cardia mediastinal silhouette is within normal li mits. Osseous structures are intact with surgically augmented compression deformity of the lumbar spi ne as seen on the prior. IMPRESSION: Linear right basilar opacity likely represents atelectasis. Underlying COPD.
[2019-07-29] MEDS ORDERED: methylPREDNISolone SOD SUCCI 125 MG/2 ML VIAL IM ONE (14:21)
--- NOTE | 2019-07-29 14:24 | ED ---
URI HPI - General Chief Complaint: Upper Respiratory Infection Stated Complaint: Cough Time Seen by Provider: 07/29/19 13:27 Source: patient Mode of arrival: ambulatory Limitations: no limitations - History of Present Illness Initial Comments: Patient is a 49-year-old female presenting to emergency Department with complaints of a cough 3 days. Patient states she has a history of pneumonia and is afraid it will turn into that again. Patient states she is bringing up a little bit of sputum but is unsure of the color. Patient denies fever, chills, shortness of breath, chest pain. Of note, patient states she is getting over a 24- hr stomach bug where she was nauseous and vomiting. Patient reports improvement and no symptoms and is only concerned with the cough today. Patient does have history of COPD and has an nebulizer at home which she has been using for the past 2 days. Patient has no other complaints at this time. Upon arrival to the ER, vital signs are stable. - Related Data Home Medications Medication Instructions Recorded Confirmed Diazepam [Valium] 10 mg PO TID PRN 08/26/15 04/15/19 Estradiol [Estrace] 1 mg PO HS 07/19/16 04/15/19 Albuterol Inhaler [Ventolin Hfa 1 - 2 puff INHALATION RT-Q6H PRN 06/11/18 04/15/19 Inhaler] carBAMazepine [TEGretol XR] 400 mg PO HS 08/22/18 04/15/19 Brexpiprazole [Rexulti] 1 mg PO HS 04/09/19 04/15/19 Budesonide-Formot 160-4.5 Mcg 2 puff INHALATION RT-BID 04/09/19 04/15/19 [Symbicort 160-4.5 Mcg Inhaler] Clindamycin HCl [Cleocin] 300 mg PO TID 04/09/19 04/15/19 Fluticasone Nasal [place] [Flonase 2 spr EA NOSTRIL BID 04/09/19 04/15/19 Nasal [place]] Ipratropium-Albuterol Nebulize 3 ml INHALATION RT-QID PRN 04/09/19 04/15/19 [Duoneb 0.5 mg-3 mg/3 ml Soln] Loratadine [Claritin] 10 mg PO HS PRN 04/09/19 04/15/19 Ofloxacin 0.3% Otic Soln [Floxin 10 drops RIGHT EAR BID 04/09/19 04/15/19 0.3% Otic Soln] SUMAtriptan SUCCINATE [Sumatriptan 6 mg SQ DAILY PRN 04/09/19 04/15/19 Succinate] Previous Rx's Medication Instructions Recorded methylPREDNISolone [Medrol Dose 4 mg PO DIRECTED #1 pack 07/29/19 Pack] Allergies Allergy/AdvReac Type Severity Reaction Status Date / Time Penicillins Allergy Severe Anaphylaxis Verified 04/15/19 08:58 Iodinated Contrast Media Allergy Unknown Rash/Hives Verified 04/15/19 08:58 [Iodinated Contrast Media - IV Dye] egg yolk Allergy Unknown Verified 04/15/19 08:58 mustard Allergy Unknown Verified 04/15/19 08:58 sulfamethoxazole Allergy Rash/Hives Verified 04/15/19 08:58 [From Bactrim] trimethoprim [From Bactrim] Allergy Rash/Hives Verified 04/15/19 08:58 Review of Systems ROS Statement: Those systems with pertinent positive or pertinent negative responses have been documented in the HPI. ROS Other: All systems not noted in ROS Statement are negative. Past Medical History Past Medical History: Cancer, COPD, Fibromyalgia, GERD/Reflux, Hypertension, Os teoarthritis (OA), Seizure Disorder Additional Past Medical History / Comment(s): HX CERVICAL CA(sx only), MIGRAINES, POSITIVE HPV, FREQUENT CONSTIPATION- last bm 08-21-18. LAST SEIZURE summer 2016. , H-PYLORI, COMPRESSION FX BACK, LOW THYROID. History of Any Multi-Drug Resistant Organisms: MRSA Date of last positivie culture/infection: NOVEMBER 2012 MDRO Source:: RT ELBOW Past Surgical History: Breast Surgery, Cholecystectomy, Hysterectomy, Orthopedic Surgery, Tonsillectomy, Tubal Ligation Additional Past Surgical History / Comment(s): RT ROTATOR CUFF REPAIR. SHAWANDA HIP SURGERY (INJURY). BREAST AUGMENTATION, LUMP LT NECK removed/bx benign, RT ELBOW SURGERY FOR MRSA INFECTION.CAREMN FUNDOPLASTY (11/24/15). EGD and balloon dilatation-12/23/15, 12/31 2016: Revision of fundoplication, bilateral oophorectomy for ovarian cysts,ended up with total hysterectomy Past Anesthesia/Blood Transfusion Reactions: No Reported Reaction, Family History of Problems w/ Anesthesia Additional Past Anesthesia/Blood Transfusion Reaction / Comment(s): MOTHER= A- FIB WITH ANESTHESIA. Past Psychological History: Anxiety, Bipolar, Depression Smoking Status: Current every day smoker Past Alcohol Use History: Occasional Past Drug Use History: None Reported - Past Family History Father Family Medical History: Hypertension Additional Family Medical History / Comment(s): Father at age 58 most likely due to complications from alcoholism and drug addiction. He also had history of hypertension and glaucoma. Brother(s) Family Medical History: No Reported History Additional Family Medical History / Comment(s): She has one brother that is a recovered alcoholic with no other major medical problems. Sister(s) Additional Family Medical History / Comment(s): Patient has one sister that suffers from depression and anxiety Mother Family Medical History: Cancer, Dementia, Deep Vein Thrombosis (DVT), Hypertension, Pulmonary Embolus Additional Family Medical History / Comment(s): history of corneal transplant, hypertension, diabetes, BREAST CA. Maternal grandmother history of breast canc er General Exam - General Exam Comments Initial Comments: GENERAL: Well-nourished and in no acute distress. HEAD: Atraumatic, normocephalic. EYES: Pupils equal round and reactive to light, extraocular movements intact, sclera anicteric, conjunctiva are normal. ENT: TMs normal, nares patent, oropharynx clear without exudates. Moist mucous membranes. NECK: Normal range of motion, supple without lymphadenopathy or JVD. LUNGS: Breath sounds clear to auscultation bilaterally and equal. No wheezes rales or rhonchi. HEART: Regular rate and rhythm without murmurs, rubs or gallops. ABDOMEN: Soft, nontender, normoactive bowel sounds. No masses appreciated. EXTREMITIES: Normal range of motion, no pitting or edema. No clubbing or cyanosis. NEUROLOGICAL: Cranial nerves II through XII grossly intact. Normal speech, normal gait. SKIN: Warm, Dry, normal turgor, no rashes or lesions noted. Limitations: no limitations Course Vital Signs 07/29/19 07/29/19 13:12 14:34 Temperature 98.1 F Pulse Rate 99 76 Respiratory 16 16 Rate Blood Pressure 150/96 139/85 O2 Sat by Pulse 99 100 Oximetry Medical Decision Making - Medical Decision Making Patient is a 49-year-old female presenting with a cough 3 days. Patient has history of COPD and history of pneumonia last year. Patient's vital signs are normal. Patient's exam is unremarkable. Chest x-ray shows no acute processes. Patient was given 125 mg all Medrol and will be started on a Dosepak to start tomorrow. Patient is agreement with this plan of care. Patient states she has a follow-up appointment with her PCP tomorrow. She is stable for discharge at this time. Return parameters were discussed with the patient she verbalized understanding. Case discussed with Dr. Zhou. Disposition Clinical Impression: Bronchitis, Cough Disposition: HOME SELF-CARE Condition: Stable Instructions (If sedation given, give patient instructions): Acute Bronchitis (ED) Additional Instructions: Please return to the Emergency Department if symptoms worsen or any other concerns. Take steroids as prescribed and start tomorrow. Follow- up with PCP as discussed tomorrow. Prescriptions: methylPREDNISolone [Medrol Dose Pack] 4 mg PO DIRECTED #1 pack Is patient prescribed a controlled substance at d/c from ED?: No Referrals: Govind Covington MD [Primary Care Provider] - 1-2 days
[2019-07-29 14:35] VITALS: BP 139/85; PULSE 76
== END 2019-07-29 14:35 | disposition home or self-care (01) ==
LOC: EC 13:09
DX: J40 Bronchitis, not specified as acute or chronic (principal); J44.9 Chronic obstructive pulmonary disease, unspecified; G40.909 Epilepsy, unspecified, not intractable, without status epilepticus; F31.9 Bipolar disorder, unspecified; F41.9 Anxiety disorder, unspecified; F17.200 Nicotine dependence, unspecified, uncomplicated; Z88.0 Allergy status to penicillin; Z88.2 Allergy status to sulfonamides; Z91.012 Allergy to eggs; Z91.018 Allergy to other foods; Z91.041 Radiographic dye allergy status; Z79.51 Long term (current) use of inhaled steroids; Z79.890 Hormone replacement therapy; Z79.899 Other long term (current) drug therapy; Z86.14 Personal history of Methicillin resistant Staphylococcus aureus infection; Z85.41 Personal history of malignant neoplasm of cervix uteri; Z87.01 Personal history of pneumonia (recurrent); Z90.710 Acquired absence of both cervix and uterus; Z83.6 Family history of other diseases of the respiratory system
CPT/HCPCS: 99283; 96372; 71046; J2930

== ENCOUNTER → 2019-08-23 | Outpatient (CLI) | payer MEDICARE, OTHER ==
--- NOTE | 2019-08-23 16:04 | CT ---
EXAMINATION TYPE: CT brain wo con DATE OF EXAM: 08/23/2019 COMPARISON: 12/07/2018 HISTORY: headache, weakness, dizziness, changes in vision CT DLP: 1054.[address] of the brain was performed. The ventricles, basal cisterns and sulci overlying the cerebral convexities demonstrate a normal appe arance. There is no evidence for intracranial hemorrhage or sulcal effacement. No mass effects are seen. Osseous calvarium is intact. If symptoms persist consider MRI as clinically warranted. IMPRESSION: 1. No acute intracranial process is seen at this time.
--- NOTE | 2019-08-23 16:10 | CT ---
EXAMINATION TYPE: CT abdomen pelvis wo con DATE OF EXAM: 08/23/2019 COMPARISON: 01/23/2018 HISTORY: change in bowel habits CT DLP: 313.7 mGycm Examination of the solid and hollow viscera is limited given the lack of contrast. FINDINGS: LUNG BASES: No evidence for nodule. No evidence for infiltrate. LIVER/GB: The gallbladder is surgically absent. No space-occupying hepatic lesion. PANCREAS: No pancreatic mass identified. No inflammatory process seen. SPLEEN: No evidence for splenomegaly. No intrasplenic lesions seen. ADRENALS: No adrenal nodules identified. No evidence for thickening. KIDNEYS: No evidence for renal mass. No nephrolithiasis. No hydronephrosis. BOWEL: Appendix has a normal appearance. No evidence of bowel obstruction. No inflammatory process. Lymph nodes: No evidence for adenopathy greater than 1 cm. Abdominal aorta: Atheromatous changes seen. No evidence for aneurysm. Genital organs: No significant abnormality. Other: Vertebroplasty changes at L1 vertebral segment redemonstrated. IMPRESSION: 1. No distinct abnormality identified.
== END | disposition home or self-care (01) ==
LOC: RADCTMAIN 15:31
PROVIDERS: ATTEND Internal Medicine
DX: R41.82 Altered mental status, unspecified (principal); R25.1 Tremor, unspecified; R32 Unspecified urinary incontinence; R19.4 Change in bowel habit; Z88.0 Allergy status to penicillin; Z88.2 Allergy status to sulfonamides; Z88.3 Allergy status to other anti-infective agents
CPT/HCPCS: 70450; 74176

== ENCOUNTER 2019-08-29 11:28 | Observation (INO) | payer MEDICARE, OTHER ==
[2019-08-29] MEDS ORDERED: NITROGLYCERIN SL TABS 0.4 MG TAB SUBLINGUAL STA ×3 (12:02)
[2019-08-29] MEDS ORDERED: ASPIRIN 81 MG PO STA (12:02)
--- NOTE | 2019-08-29 12:07 | ED ---
General Adult HPI - General Chief complaint: Chest Pain Stated complaint: Chest Pain, SOB Time Seen by Provider: 08/29/19 11:43 Source: patient, RN notes reviewed, old records reviewed Mode of arrival: ambulatory Limitations: no limitations - History of Present Illness Initial comments: Patient is a pleasant 41-year-old female presenting to the emergency Department with complaints of chest discomfort. Onset of symptoms was a couple of weeks ago. Discomfort is hard to describe but mostly feels like an ache. Discomfort is sometimes bed is 6/10. Discomfort is not as bad at this time. Patient does have associated dyspnea. No nausea. Patient does get diaphoretic at times. Discomfort does worsen with exertion as does dyspnea. Today patient notices some radiation to her right arm. Patient has had some discomfort of her right jaw as well however this has been going on for several days. Patient did go to the dentist who found no dental problems. Patient states her right jaw hurts at the TMJ location when she opens and shuts her mouth. No history of similar symptoms previously. Patient denies any worsening symptoms with deep breaths or pushing on her chest. Patient states she did get over bronchitis around a month ago. - Related Data Home Medications Medication Instructions Recorded Confirmed Diazepam [Valium] 10 mg PO TID PRN 08/26/15 04/15/19 Estradiol [Estrace] 1 mg PO HS 07/19/16 04/15/19 Albuterol Inhaler [Ventolin Hfa 1 - 2 puff INHALATION RT-Q6H PRN 06/11/18 04/15/19 Inhaler] carBAMazepine [TEGretol XR] 400 mg PO HS 08/22/18 04/15/19 Brexpiprazole [Rexulti] 1 mg PO HS 04/09/19 04/15/19 Budesonide-Formot 160-4.5 Mcg 2 puff INHALATION RT-BID 04/09/19 04/15/19 [Symbicort 160-4.5 Mcg Inhaler] Clindamycin HCl [Cleocin] 300 mg PO TID 04/09/19 04/15/19 Fluticasone Nasal [place] [Flonase 2 spr EA NOSTRIL BID 04/09/19 04/15/19 Nasal [place]] Ipratropium-Albuterol Nebulize 3 ml INHALATION RT-QID PRN 04/09/19 04/15/19 [Duoneb 0.5 mg-3 mg/3 ml Soln] Loratadine [Claritin] 10 mg PO HS PRN 04/09/19 04/15/19 Ofloxacin 0.3% Otic Soln [Floxin 10 drops RIGHT EAR BID 04/09/19 04/15/19 0.3% Otic Soln] SUMAtriptan SUCCINATE [Sumatriptan 6 mg SQ DAILY PRN 04/09/19 04/15/19 Succinate] Previous Rx's Medication Instructions Recorded methylPREDNISolone [Medrol Dose 4 mg PO DIRECTED #1 pack 07/29/19 Pack] Allergies Allergy/AdvReac Type Severity Reaction Status Date / Time Penicillins Allergy Severe Anaphylaxis Verified 08/29/19 11:33 Iodinated Contrast Media Allergy Unknown Rash/Hives Verified 08/29/19 11:33 [Iodinated Contrast Media - IV Dye] egg yolk Allergy Unknown Verified 08/29/19 11:33 mustard Allergy Unknown Verified 08/29/19 11:33 sulfamethoxazole Allergy Rash/Hives Verified 08/29/19 11:33 [From Bactrim] trimethoprim [From Bactrim] Allergy Rash/Hives Verified 08/29/19 11:33 Review of Systems ROS Statement: Those systems with pertinent positive or pertinent negative responses have been documented in the HPI. ROS Other: All systems not noted in ROS Statement are negative. Constitutional: Denies: fever Eyes: Denies: eye pain ENT: Denies: ear pain Respiratory: Reports: as per HPI, dyspnea Cardiovascular: Reports: as per HPI, chest pain Endocrine: Denies: fatigue Gastrointestinal: Denies: abdominal pain, nausea Genitourinary: Denies: dysuria Musculoskeletal: Denies: back pain Skin: Denies: rash Neurological: Denies: weakness Past Medical History Past Medical History: Cancer, COPD, Fibromyalgia, GERD/Reflux, Hyperlipidemia, Hypertension, Osteoarthritis (OA), Seizure Disorder Additional Past Medical History / Comment(s): HX CERVICAL CA(sx only), MIGRAINES, POSITIVE HPV, FREQUENT CONSTIPATION- last bm 08-21-18. LAST SEIZURE summer 2016. , H-PYLORI, COMPRESSION FX BACK, LOW THYROID. History of Any Multi-Drug Resistant Organisms: MRSA Date of last positivie culture/infection: NOVEMBER 2012 MDRO Source:: RT ELBOW Past Surgical History: Breast Surgery, Cholecystectomy, Hysterectomy, Orthopedic Surgery, Tonsillectomy, Tubal Ligation Additional Past Surgical History / Comment(s): RT ROTATOR CUFF REPAIR. SHAWANDA HIP SURGERY (INJURY). BREAST AUGMENTATION, LUMP LT NECK removed/bx benign, RT ELBOW SURGERY FOR MRSA INFECTION.CARMEN FUNDOPLASTY (11/24/15). EGD and balloon dilatation-12/23/15, 12/31 2016: Revision of fundoplication, bilateral oophorectomy for ovarian cysts,ended up with total hysterectomy Past Anesthesia/Blood Transfusion Reactions: No Reported Reaction, Family History of Problems w/ Anesthesia Additional Past Anesthesia/Blood Transfusion Reaction / Comment(s): MOTHER= A- FIB WITH ANESTHESIA. Past Psychological History: Anxiety, Bipolar, Depression Smoking Status: Current every day smoker Past Alcohol Use History: Occasional Past Drug Use History: None Reported - Past Family History Father Family Medical History: Hypertension Additional Family Medical History / Comment(s): Father at age 58 most likely due to complications from alcoholism and drug addiction. He also had history of hypertension and glaucoma. Brother(s) Family Medical History: No Reported History Additional Family Medical History / Comment(s): She has one brother that is a recovered alcoholic with no other major medical problems. Sister(s) Additional Family Medical History / Comment(s): Patient has one sister that suffers from depression and anxiety Mother Family Medical History: Cancer, Dementia, Deep Vein Thrombosis (DVT), Hypertens ion, Pulmonary Embolus Additional Family Medical History / Comment(s): history of corneal transplant, hypertension, diabetes, BREAST CA. Maternal grandmother history of breast cancer General Exam Limitations: no limitations General appearance: alert, in no apparent distress Head exam: Present: normocephalic Eye exam: Present: normal appearance, PERRL ENT exam: Present: normal exam, normal oropharynx, other (Patient states discomfort at the right TMJ joint with opening and closing of her mouth.) Neck exam: Present: normal inspection. Absent: tenderness Respiratory exam: Present: normal lung sounds bilaterally Cardiovascular Exam: Present: regular rate, normal rhythm Expanded Peripheral pulses: 2+: Radial (R), Radial (L), Posterior Tibialis (R), Posterior Tibialis (L), Dorsalis Pedis (R), Dorsalis Pedis (L) GI/Abdominal exam: Present: soft. Absent: tenderness Extremities exam: Present: normal inspection. Absent: pedal edema, calf tenderness Neurological exam: Present: alert Psychiatric exam: Present: normal affect, normal mood Skin exam: Present: normal color Course Vital Signs 08/29/19 08/29/19 11:31 12:37 Temperature 97.7 F Pulse Rate 102 H 89 Respiratory 16 20 Rate Blood Pressure 114/83 112/73 O2 Sat by Pulse 98 97 Oximetry EKG Findings - EKG Comments: EKG Findings:: Normal sinus rhythm 87. VA 146. QRS 94. QT 358. QTC 4:30. Normal axis. Normal QRS. No acute ST change. Medical Decision Making - Medical Decision Making Patient reevaluated and feeling better following nitroglycerin. She is updated on results and plan. [facility] physician group has been paged for admission for Dr. David. - Lab Data Result diagrams: 08/29/19 12:10 08/29/19 12:10 Lab Results 08/29/19 08/29/19 08/29/19 Range/Units 12:10 12:10 12:10 WBC 5.9 (3.8-10.6) k/uL RBC 3.53 L (3.80-5.40) m/uL Hgb 13.5 (11.4-16.0) gm/dL Hct 40.5 (34.0-46.0) % MCV 114.8 H (80.0-100.0) fL MCH 38.2 H (25.0-35.0) pg MCHC 33.3 (31.0-37.0) g/dL RDW 13.5 (11.5-15.5) % Plt Count 237 (150-450) k/uL Neutrophils % 67 % Lymphocytes % 26 % Monocytes % 4 % Eosinophils % 1 % Basophils % 0 % Neutrophils # 3.9 (1.3-7.7) k/uL Lymphocytes # 1.5 (1.0-4.8) k/uL Monocytes # 0.3 (0-1.0) k/uL Eosinophils # 0.1 (0-0.7) k/uL Basophils # 0.0 (0-0.2) k/uL Manual Slide Review Performed Poikilocytosis (manual Present Macrocytosis Marked A Stomatocytes Present PT 9.6 (9.0-12.0) sec INR 0.9 (<1.2) APTT 20.6 L (22.0-30.0) sec D-Dimer 0.38 (<0.60) mg/L FEU Sodium 140 (137-145) mmol/L Potassium 4.1 (3.5-5.1) mmol/L Chloride 110 H (98-107) mmol/L Carbon Dioxide 21 L (22-30) mmol/L Anion Gap 9 mmol/L BUN 9 (7-17) mg/dL Creatinine 0.72 (0.52-1.04) mg/dL Est GFR (CKD-EPI)AfAm >90 (>60 ml/min/1.73 sqM) Est GFR (CKD-EPI)NonAf >90 (>60 ml/min/1.73 sqM) Glucose 96 (74-99) mg/dL Calcium 9.4 (8.4-10.2) mg/dL Magnesium 1.8 (1.6-2.3) mg/dL Total Bilirubin 0.6 (0.2-1.3) mg/dL AST 24 (14-36) U/L ALT 16 (9-52) U/L Alkaline Phosphatase 61 (38-126) U/L Troponin I (0.000-0.034) ng/mL Total Protein 6.9 (6.3-8.2) g/dL Albumin 4.1 (3.5-5.0) g/dL 08/29/19 Range/Units 12:10 WBC (3.8-10.6) k/uL RBC (3.80-5.40) m/uL Hgb (11.4-16.0) gm/dL Hct (34.0-46.0) % MCV (80.0-100.0) fL MCH (25.0-35.0) pg MCHC (31.0-37.0) g/dL RDW (11.5-15.5) % Plt Count (150-450) k/uL Neutrophils % % Lymphocytes % % Monocytes % % Eosinophils % % Basophils % % Neutrophils # (1.3-7.7) k/uL Lymphocytes # (1.0-4.8) k/uL Monocytes # (0-1.0) k/uL Eosinophils # (0-0.7) k/uL Basophils # (0-0.2) k/uL Manual Slide Review Poikilocytosis (manual Macrocytosis Stomatocytes PT (9.0-12.0) sec INR (<1.2) APTT (22.0-30.0) sec D-Dimer (<0.60) mg/L FEU Sodium (137-145) mmol/L Potassium (3.5-5.1) mmol/L Chloride (98-107) mmol/L Carbon Dioxide (22-30) mmol/L Anion Gap mmol/L BUN (7-17) mg/dL Creatinine (0.52-1.04) mg/dL Est GFR (CKD-EPI)AfAm (>60 ml/min/1.73 sqM) Est GFR (CKD-EPI)NonAf (>60 ml/min/1.73 sqM) Glucose (74-99) mg/dL Calcium (8.4-10.2) mg/dL Magnesium (1.6-2.3) mg/dL Total Bilirubin (0.2-1.3) mg/dL AST (14-36) U/L ALT (9-52) U/L Alkaline Phosphatase (38-126) U/L Troponin I <0.012 (0.000-0.034) ng/mL Total Protein (6.3-8.2) g/dL Albumin (3.5-5.0) g/dL - Radiology Data Radiology results: image reviewed (Chest x-ray shows no acute process) Disposition Clinical Impression: Chest pain Disposition: ADMITTED IP TO THIS HOSP Is patient prescribed a controlled substance at d/c from ED?: No Referrals: Govind Covington MD [Primary Care Provider] - 1-2 days Decision Time: 13:18
[2019-08-29 12:27] LABS: Basophils % (A) 0 %; Eosinophils # (A) 0.1 k/uL (0-0.7); Eosinophils % (A) 1 %; HCT 40.5 % (34.0-46.0); HGB 13.5 gm/dL (11.4-16.0); Lymphocytes # (A) 1.5 k/uL (1.0-4.8); Lymphocytes % (A) 26 %; MCH 38.2 pg (25.0-35.0); MCHC 33.3 g/dL (31.0-37.0); MCV 114.8 fL (80.0-100.0); Macrocytosis Marked; Mean Platelet Volume 7.8; Monocytes # (A) 0.3 k/uL (0-1.0); Monocytes % (A) 4 %; Neutrophils # (A) 3.9 k/uL (1.3-7.7); Neutrophils % (A) 67 %; Platelet Count 237 k/uL (150-450); RBC 3.53 m/uL (3.80-5.40); RDW 13.5 % (11.5-15.5); WBC 5.9 k/uL (3.8-10.6)
[2019-08-29 12:42] LABS: ALT 16 U/L (9-52); AST 24 U/L (14-36); African American GFR (CKD) >90 (>60 ml/min/1.73 sqM); Albumin 4.1 g/dL (3.5-5.0); Alkaline Phosphatase 61 U/L (38-126); Anion Gap 9 mmol/L; Blood Urea Nitrogen 9 mg/dL (7-17); Calcium 9.4 mg/dL (8.4-10.2); Carbon Dioxide 21 mmol/L (22-30); Chloride 110 mmol/L (98-107); Glucose 96 mg/dL (74-99); Magnesium 1.8 mg/dL (1.6-2.3); Non-African American GFR(CKD) >90 (>60 ml/min/1.73 sqM); Sodium 140 mmol/L (137-145); Total Bilirubin 0.6 mg/dL (0.2-1.3); Total Protein 6.9 g/dL (6.3-8.2)
[2019-08-29 12:44] LABS: D-Dimer 0.38 mg/L FEU (<0.60); INR 0.9 (<1.2); Prothrombin Time 9.6 sec (9.0-12.0)
[2019-08-29 12:45] LABS: Partial Thromboplastin Time 20.6 sec (22.0-30.0)
[2019-08-29 12:50] LABS: Stomatocytes Present
[2019-08-29 12:51] LABS: Poikilocytosis (M) Present; Potassium 4.1 mmol/L (3.5-5.1)
--- NOTE | 2019-08-29 13:06 | XR ---
EXAMINATION TYPE: XR chest 2V DATE OF EXAM: 08/29/2019 COMPARISON: 07/29/2019 INDICATION: Chest pain shortness of breath TECHNIQUE: Frontal and lateral views of the chest are obtained. FINDINGS: The heart size is normal. The pulmonary vasculature is normal. The lungs are clear. IMPRESSION: 1. No acute pulmonary process.
[2019-08-29] MEDS ORDERED: ACETAMINOPHEN TAB 500 MG TAB PO STA (13:15)
[2019-08-29] MEDS ORDERED: NITROGLYCERIN SL TABS 0.4 MG TAB SUBLINGUAL PRN (13:18)
[2019-08-29] MEDS ORDERED: INFLUENZA VACCINE (6 MOS+) 60 MCG/0.5 ML SYRINGE IM ONE (15:24)
[2019-08-29] MEDS ORDERED: AZELASTINE 137MCG/SPRAY EA NOSTRIL PRN (15:48)
[2019-08-29] MEDS ORDERED: FLUTICASONE 50MCG/SPRAY NASAL 16GM EA NOSTRIL PRN (15:48)
--- NOTE | 2019-08-29 15:52 | P.HPIM ---
History of Present Illness H&P Date: 08/29/19 Chief Complaint: chest pain chest pain The patient is a 49-year-old female with a past medical history of essential hypertension., Hyperlipidemia, COPD, smoker with significant pack year history, bipolar disorder, anxiety, GERD with history of Susu Fundoplication that presents to the ER via private vehicle with chief complaint of left-sided chest pain. The patient reports this pain has been intermittent for the last 2 weeks located under her left breast into her left chest that seems worse with deep breaths and exertion. She reports some associated lightheadedness, dizziness, blurry vision and shortness of air. She denies any nausea vomiting or diaphoresis, she reports she was recently started on antihypertensive and cholesterol medications in the last 2 weeks. She also reports that she was recently diagnosed with bronchitis and completed a course of Levaquin 2 weeks ago. She presented today because her symptoms are somewhat different as she was having radiation into her right arm and right jaw and right lower extremity. Patient reports a history of seizure disorder and reports compliance with Tegretol She reports a history of chronic alcoholism reports that she last drank 4 days ago Review of records indicates she had a CT of the head that showed no acute intracranial process when she presented with complaints of headache dizziness and blurry vision 08/23/19, she was also noted to have elevated triglycerides 324, LDL 143, and Tegretol level was in normal range at 8 in the ER she had a comprehensive workup EKG showed normal sinus rhythm without any suggestion of acute ischemia she received doses of nitroglycerin nitroglycerin which took her discomfort from a 6 down to a 2, but complains it did give her headache. Chest x-ray showed no acute pulmonary process, labs showed a normal d-dimer 0.38, troponin was less than 0.012 MCV was 114. 8 Review of Systems Pertinent pauses per HPI all other review of system otherwise negative Past Medical History Past Medical History: Cancer, COPD, Fibromyalgia, GERD/Reflux, Hyperlipidemia, Hypertension, Osteoarthritis (OA), Pneumonia, Seizure Disorder, Thyroid Disorder Additional Past Medical History / Comment(s): Hpylori, arthritis in multiple joints, compression fracture L1 with chronic pain, last seizure in 2018 or 2019- pt unsure, hypothyroid, pt states she is an alcoholic and quit drinking 4 days ago, past elevated liver function tests, L breast "lump" being monitored, pt states past week she has had stomach pain after eating and past 2 weeks she has had blurry vision/bed wetting. History of Any Multi-Drug Resistant Organisms: MRSA Date of last positivie culture/infection: NOVEMBER 2012 MDRO Source:: RT ELBOW Past Surgical History: Adenoidectomy, Breast Surgery, Cholecystectomy, Hysterectomy, Orthopedic Surgery, Tonsillectomy, Tubal Ligation Additional Past Surgical History / Comment(s): Bilateral breast implants, bilateral oophorectomy d/t cysts, EGDs, EGD with dilation, susu fundoplication with revision, R elbow surgery for MRSA infection, R rotator cuff repair, low back surgery (cemented), bilateral hip surgery for tendon/muscle repairs/screws in place. Past Anesthesia/Blood Transfusion Reactions: No Reported Reaction, Family History of Problems w/ Anesthesia Additional Past Anesthesia/Blood Transfusion Reaction / Comment(s): MOTHER= A- FIB WITH ANESTHESIA. Smoking Status: Current every day smoker - Past Family History Father Family Medical History: Eye Disorder, Hypertension Additional Family Medical History / Comment(s): Father committed suicide at the age of 58yrs. He had glaucoma Brother(s) Family Medical History: No Reported History Additional Family Medical History / Comment(s): She has one brother that is a recovered alcoholic with no other major medical problems. Sister(s) Additional Family Medical History / Comment(s): Patient has one sister that suffers from depression and anxiety Mother Family Medical History: Cancer, Dementia, Diabetes Mellitus, Deep Vein Thrombosis (DVT), Eye Disorder, Hypertension, Pulmonary Embolus Additional Family Medical History / Comment(s): Corneal transplant, breast cancer Medications and Allergies Home Medications Medication Instructions Recorded Confirmed Type Diazepam [Valium] 10 mg PO TID PRN 08/26/15 08/29/19 History Estradiol [Estrace] 1 mg PO HS 07/19/16 08/29/19 History Albuterol Inhaler [Ventolin Hfa 1 - 2 puff INHALATION RT-Q6H PRN 06/11/18 08/29/19 History Inhaler] carBAMazepine [TEGretol XR] 400 mg PO HS 08/22/18 08/29/19 History Budesonide-Formot 160-4.5 Mcg 2 puff INHALATION RT-BID 04/09/19 08/29/19 History [Symbicort 160-4.5 Mcg Inhaler] Fluticasone Nasal [place] [Flonase 2 spr EA NOSTRIL DAILY PRN 04/09/19 08/29/19 History Nasal [place]] Albuterol Nebulized [Ventolin 2.5 mg INHALATION RT-QID PRN 08/29/19 08/29/19 History Nebulized] Azelastine HCl [Astepro] 2 spray EA NOSTRIL BID PRN 08/29/19 08/29/19 History Fenofibrate Nanocrystallized 48 mg PO HS 08/29/19 08/29/19 History [Fenofibrate] Gabapentin [Neurontin] 100 mg PO BID 08/29/19 08/29/19 History Ibuprofen [Motrin] 800 mg PO Q6H PRN 08/29/19 08/29/19 History Lisinopril [Zestril] 20 mg PO HS 08/29/19 08/29/19 History Ziprasidone [Geodon] 40 mg PO HS 08/29/19 08/29/19 History Allergies Allergy/AdvReac Type Severity Reaction Status Date / Time Penicillins Allergy Severe Anaphylaxis Verified 08/29/19 14:10 Iodinated Contrast Media Allergy Unknown Rash/Hives Verified 08/29/19 14:10 [Iodinated Contrast Media - IV Dye] egg yolk Allergy Unknown Verified 08/29/19 14:10 mustard Allergy Unknown Verified 08/29/19 14:10 sulfamethoxazole Allergy Rash/Hives Verified 08/29/19 14:10 [From Bactrim] trimethoprim [From Bactrim] Allergy Rash/Hives Verified 08/29/19 14:10 Physical Exam Vitals: Vital Signs Temp Pulse Pulse Resp BP BP Pulse Ox 08/29/19 14:42 98 08/29/19 14:34 97.8 F 99 18 136/76 99 08/29/19 13:52 98.2 F 63 18 113/84 99 08/29/19 12:37 89 20 112/73 97 08/29/19 11:31 97.7 F 102 H 16 114/83 98 Intake and Output 08/29/19 08/29/19 08/29/19 06:59 14:59 22:59 Other: Voiding Method Toilet Weight 72.575 kg 72.575 kg Constitutional: No acute distress, conversant, pleasant Eyes: Anicteric sclerae, moist conjunctiva, no lid-lag, PERRLA ENMT: NC/AT,Oropharynx clear, no erythema, exudates Neck:Supple, FROM, no masses, or JVD, No carotid bruits; No thyromegaly Lungs: Clear to auscultation, Clear to percussion, Normal respiratory effort, no accessory muscle use Cardiovascular: Heart regular in rate and rhythm, No murmurs, gallops, or rubs no peripheral edema Abdominal: Soft Nontender, nom distended, no guarding, no rebound or rigidity, Normoactive bowel sounds No hepatomegaly, No splenomegaly, No palpable mass No abdominal wall hernia noted Skin: Normal temperature, tone, texture, turgor, No induration No subcutaneous nodules, No rash, lesions, No ulcers Extremities:No digital cyanosis No clubbing, Pedal pulses intact and symmetrical Radial pulses intact and symmetrical Normal gait and station, No calf tenderness Psychiatric: Alert and oriented to person, place and time, Appropriate affect Intact judgement Neuro: Muscles Strength 5/5 in all 4 extremities, Sensation to light touch grossly present throughout, Cranial nerves II-XII grossly intact. No focal sensory deficits Results CBC & Chem 7: 08/29/19 12:10 08/29/19 12:10 Labs: Abnormal Lab Results - Last 24 Hours (Table) 08/29/19 08/29/19 08/29/19 Range/Units 12:10 12:10 12:10 RBC 3.53 L (3.80-5.40) m/uL MCV 114.8 H (80.0-100.0) fL MCH 38.2 H (25.0-35.0) pg Macrocytosis Marked A APTT 20.6 L (22.0-30.0) sec Chloride 110 H (98-107) mmol/L Carbon Dioxide 21 L (22-30) mmol/L Assessment and Plan Assessment: Atypical Chest pain Essential hypertension Dyslipidemia COPD Macrocytosis Smoker Bipolar disorder Anxiety Seizure disorder Plan: The patient is placed in observation status anticipated less than 2 midnight stay with atypical chest pain she does have known CAD risk factors, workup so far as been negative with troponin less than 0.012 and EKG showing sinus mechanism without any suggestion of acute ischemia. We'll continue to cycle her troponins, consult cardiology, consider stress echocardiogram. Check TSH, folate, B12. Continue routine chest pain orders with nitroglycerin aspirin, The patient is normotensive hemodynamically stable and will be started on her home medications. We'll continue to follow her clinical course CODE STATUS: Full code Anticipated discharge: 1-[address]: Home Discussed plan of care with: Patient and her partner Prophylaxis SCDs and heparin
[2019-08-29] MEDS: DIAZEPAM 5 MG TAB PO PRN ×2 (16:12→23:56)
[2019-08-29] MEDS: IBUPROFEN 800 MG TAB PO PRN (16:13)
[2019-08-29] MEDS: HEPARIN SODIUM,PORCINE 5,000 UNIT/ML 1 ML VIAL SQ SCH ×2 (16:13→23:58)
[2019-08-29] MEDS: NITROGLYCERIN OINT 1 INCH/GM PACKET TOPICAL SCH (16:17)
[2019-08-29] MEDS: SYMBICORT 160-4.5 MCG INHALER INHALATION SCH (18:46)
[2019-08-29] MEDS ORDERED: LISINOPRIL 20 MG TAB PO SCH (21:00)
[2019-08-29] MEDS ORDERED: carBAMazepine 400 MG TAB.ER.12H PO SCH (21:00)
[2019-08-29] MEDS ORDERED: ZIPRASIDONE 40 MG CAP PO SCH (21:00)
[2019-08-29] MEDS ORDERED: FENOFIBRATE 54 MG TAB PO SCH (21:00)
[2019-08-29] MEDS: GABAPENTIN 100 MG CAP PO SCH (21:02)
[2019-08-30] MEDS: NITROGLYCERIN OINT 1 INCH/GM PACKET TOPICAL SCH (00:09)
[2019-08-30 04:36] LABS: Cholesterol 292 mg/dL (<200); HDL Cholesterol 63 mg/dL (40-60); LDL Cholesterol,Calculated 183 mg/dL (0-99); Triglycerides 230 mg/dL (<150)
[2019-08-30] MEDS: SYMBICORT 160-4.5 MCG INHALER INHALATION SCH (07:02)
[2019-08-30 08:29] VITALS: RESP 18
[2019-08-30] MEDS ORDERED: DOBUTamine DRIP for NUC MED 500 MG in DEXTROSE/WATER 1 250ML.BAG IV ONE (08:43)
[2019-08-30] MEDS: IBUPROFEN 800 MG TAB PO PRN (09:00)
[2019-08-30] MEDS ORDERED: ASPIRIN 325 MG TAB PO SCH (09:00)
--- NOTE | 2019-08-30 10:01 | ECHOF ---
Referral Reason:cp MEASUREMENTS -------- HEIGHT: 162.6 cm WEIGHT: 72.6 kg BP: RVIDd: 3.0 cm (< 3.3) IVSd: 1.1 cm (0.6 - 1.1) LVIDd: 3.6 cm (3.9 - 5.3) LVPWd: 0.9 cm (0.6 - 1.1) IVSs: 1.1 cm LVIDs: 3.3 cm LVPWs: 1.2 cm LA Diam: 3.0 cm (2.7 - 3.8) LAESV Index (A-L): 10.68 ml/m MV EXCURSION: 23.080 mm (> 18.000) MV EF SLOPE: 138 mm/s (70 - 150) EPSS: 0.4 cm MV E [place]: 0.86 m/s MV DecT: 160 ms MV A [place]: 0.60 m/s MV E/A Ratio: 1.44 RAP: 5.00 mmHg RVSP: 8.11 mmHg FINDINGS -------- Sinus rhythm. This was a technically good study. LV size, wall thickness and systolic function are normal, with an EF greater than 55%. The left stacy tricular size is normal. The right ventricle is normal in size. The left atrium is normal in size. The right atrium was not well visualized. The aortic valve is trileaflet, and appears structurally normal. No aortic stenosis or regurgitation. Mild mitral regurgitation is present. Trace tricuspid regurgitation present. Right ventricular systolic pressure is normal at < 35 mmHg. There is no evidence of pulmonary hypertension. There is no pulmonic regurgitation present. The aortic root size is normal. There is no pericardial effusion. CONCLUSIONS -------- 1. Sinus rhythm. 2. This was a technically good study. 3. LV size, wall thickness and systolic function are normal, with an EF greater than 55%. 4. The left ventricular size is normal. 5. The right ventricle is normal in size. 6. The left atrium is normal in size. 7. The right atrium was not well visualized. 8. The aortic valve is trileaflet, and appears structurally normal. No aortic stenosis or regurgitati on. 9. Mild mitral regurgitation is present. 10. Trace tricuspid regurgitation present. 11. Right ventricular systolic pressure is normal at < 35 mmHg. 12. There is no evidence of pulmonary hypertension. 13. There is no pulmonic regurgitation present. 14. The aortic root size is normal. 15. There is no pericardial effusion. TOLL REPAIRER CENTRAL OFFICE: Maral Ocampo RDCS
[2019-08-30] MEDS: HEPARIN SODIUM,PORCINE 5,000 UNIT/ML 1 ML VIAL SQ SCH (11:14)
[2019-08-30] MEDS ORDERED: NICOTINE 14MG/24HR PATCH TRANSDERM SCH (11:15)
[2019-08-30] MEDS: DIAZEPAM 5 MG TAB PO PRN (11:22)
[2019-08-30] MEDS: GABAPENTIN 100 MG CAP PO SCH (11:23)
--- NOTE | 2019-08-30 11:35 | P.CRDCN ---
History of Present Illness History of present illness: HISTORY OF PRESENTING ILLNESS This is a pleasant 49-year-old female past medical history significant for COPD, hypertension, dyslipidemia, seizure disorder, hypothyroidism and fibro myalgia. She presented with chest pain. 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 In the past she has seen Dr. Peralta and undergone a stress test that she states was normal. We have been asked to see her in consultation for chest pain. She states for the last few weeks she has been having a constant pain under the left breast described as tightness. The pain is not alleviated by anything and has been constant. She does notice some worsening when she walks up the stairs at home. She has associated shortness of breath. She also describes pain in the left jaw, difficulty swallowing, throat pain, increased urination with bed wetting at night, poor appetite and diarrhea. She denies palpitations, nausea, vomiting or dizziness. DIAGNOSTICS EKG reveals sinus mechanism with no acute ST or T-wave abnormalities. Chest xray negative for an acute cardiopulmonary process. Laboratory reviewed, WBC 5.9, hemoglobin 13.5, platelets 237, d-dimer 0.38, sodium 140, potassium 4.1, creatinine 0.72, cardiac enzymes negative 3, triglycerides 230, LDL 183, HDL 63, total cholesterol 292 and TSH 0.499. Current cardiac medications include fenofibrate 40 mg at bedtime and lisinopril 20 mg daily. REVIEW OF SYSTEMS At the time of my exam: CONSTITUTIONAL: Denies fever or chills. CARDIOVASCULAR: Denies chest pain, shortness of breath, orthopnea, PND or palpitations. RESPIRATORY: Denies cough. GASTROINTESTINAL: Denies abdominal pain, diarrhea, constipation, nausea or vomiting. MUSCULOSKELETAL: Denies myalgias. NEUROLOGIC: Denies numbness, tingling or weakness. ENDOCRINE: Denies fatigue, weight change, polydipsia or polyurina. GENITOURINARY: Denies burning, hematuria or urgency with micturation. HEMATOLOGIC: Denies history of anemia or bleeding. PHYSICAL EXAMINATION Blood pressure 96/62 heart rate 58 afebrile and maintaining oxygen saturation on room air. CONSTITUTIONAL: No apparent distress. HEENT: Head is normocephalic. Pupils are equal, round. Sclerae anicteric. Mucous membranes of the mouth are moist. No JVD. No carotid bruit. CHEST EXAMINATION: Lungs are clear to auscultation. No chest wall tenderness is noted on palpation or with deep breathing. HEART EXAMINATION: Regular rate and rhythm. S1, S2 heard. No murmurs, gallops or rub. ABDOMEN: Soft, nontender. Positive bowel sounds. EXTREMITIES: 2+ peripheral pulses, no lower extremity edema and no calf tenderness. NEUROLOGIC EXAMINATION: Patient is awake, alert and oriented x3. ASSESSMENT Chest pain, atypical. An acute event has been ruled out. Hypertension Dyslipidemia Chronic nicotine dependence Seizure disorder Regular alcohol use, last drink was 1-week ago. PLAN An acute event has been ruled out. Obtain 2D echocardiogram and doppler study to assess cardiac structure and function. Perform dobutamine stress echocardiogram to assess for stress induced ischemia. Recommend smoking cessation and lifestyle modifications for lowering of cholesterol. Ongoing alcohol cessation encouraged. Thank you kindly for this consultation. Nurse Practitioner note has been reviewed, I agree with a documented findings and plan of care. Patient was seen and examined. Past Medical History Past Medical History: Cancer, COPD, Fibromyalgia, GERD/Reflux, Hyperlipidemia, Hypertension, Osteoarthritis (OA), Pneumonia, Seizure Disorder, Thyroid Disorder Additional Past Medical History / Comment(s): Hpylori, arthritis in multiple j oints, compression fracture L1 with chronic pain, last seizure in 2018 or 2019- pt unsure, hypothyroid, pt states she is an alcoholic and quit drinking 4 days ago, past elevated liver function tests, L breast "lump" being monitored, pt states past week she has had stomach pain after eating and past 2 weeks she has had blurry vision/bed wetting. History of Any Multi-Drug Resistant Organisms: MRSA Date of last positivie culture/infection: NOVEMBER 2012 MDRO Source:: RT ELBOW Past Surgical History: Adenoidectomy, Breast Surgery, Cholecystectomy, Hysterectomy, Orthopedic Surgery, Tonsillectomy, Tubal Ligation Additional Past Surgical History / Comment(s): Bilateral breast implants, bilateral oophorectomy d/t cysts, EGDs, EGD with dilation, susu fundoplication with revision, R elbow surgery for MRSA infection, R rotator cuff repair, low back surgery (cemented), bilateral hip surgery for tendon/muscle repairs/screws in place. Past Anesthesia/Blood Transfusion Reactions: No Reported Reaction, Family History of Problems w/ Anesthesia Additional Past Anesthesia/Blood Transfusion Reaction / Comment(s): MOTHER= A- FIB WITH ANESTHESIA. Smoking Status: Current every day smoker - Past Family History Father Family Medical History: Eye Disorder, Hypertension Additional Family Medical History / Comment(s): Father committed suicide at the age of 58yrs. He had glaucoma Brother(s) Family Medical History: No Reported History Additional Family Medical History / Comment(s): She has one brother that is a recovered alcoholic with no other major medical problems. Sister(s) Additional Family Medical History / Comment(s): Patient has one sister that suffers from depression and anxiety Mother Family Medical History: Cancer, Dementia, Diabetes Mellitus, Deep Vein Thrombosis (DVT), Eye Disorder, Hypertension, Pulmonary Embolus Additional Family Medical History / Comment(s): Corneal transplant, breast cancer Medications and Allergies Home Medications Medication Instructions Recorded Confirmed Type Diazepam [Valium] 10 mg PO TID PRN 08/26/15 08/29/19 History Estradiol [Estrace] 1 mg PO HS 07/19/16 08/29/19 History Albuterol Inhaler [Ventolin Hfa 1 - 2 puff INHALATION RT-Q6H PRN 06/11/18 08/29/19 History Inhaler] carBAMazepine [TEGretol XR] 400 mg PO HS 08/22/18 08/29/19 History Budesonide-Formot 160-4.5 Mcg 2 puff INHALATION RT-BID 04/09/19 08/29/19 History [Symbicort 160-4.5 Mcg Inhaler] Fluticasone Nasal [place] [Flonase 2 spr EA NOSTRIL DAILY PRN 04/09/19 08/29/19 History Nasal [place]] Albuterol Nebulized [Ventolin 2.5 mg INHALATION RT-QID PRN 08/29/19 08/29/19 History Nebulized] Azelastine HCl [Astepro] 2 spray EA NOSTRIL BID PRN 08/29/19 08/29/19 History Fenofibrate Nanocrystallized 48 mg PO HS 08/29/19 08/29/19 History [Fenofibrate] Gabapentin [Neurontin] 100 mg PO BID 08/29/19 08/29/19 History Ibuprofen [Motrin] 800 mg PO Q6H PRN 08/29/19 08/29/19 History Lisinopril [Zestril] 20 mg PO HS 08/29/19 08/29/19 History Ziprasidone [Geodon] 40 mg PO HS 08/29/19 08/29/19 History Allergies Allergy/AdvReac Type Severity Reaction Status Date / Time Penicillins Allergy Severe Anaphylaxis Verified 08/29/19 14:10 Iodinated Contrast Media Allergy Unknown Rash/Hives Verified 08/29/19 14:10 [Iodinated Contrast Media - IV Dye] egg yolk Allergy Unknown Verified 08/29/19 14:10 mustard Allergy Unknown Verified 08/29/19 14:10 sulfamethoxazole Allergy Rash/Hives Verified 08/29/19 14:10 [From Bactrim] trimethoprim [From Bactrim] Allergy Rash/Hives Verified 08/29/19 14:10 Physical Exam Vitals: Vital Signs Temp Pulse Pulse Resp BP BP Pulse Ox 08/30/19 04:00 98.2 F 109 H 16 96/55 99 08/30/19 00:00 76 15 08/29/19 23:44 97.9 F 76 15 96/63 99 08/29/19 19:55 17 08/29/19 18:58 97.5 F L 66 17 93/57 96 08/29/19 14:42 98 08/29/19 14:34 97.8 F 99 18 136/76 99 08/29/19 13:52 98.2 F 63 18 113/84 99 08/29/19 12:37 89 20 112/73 97 08/29/19 11:31 97.7 F 102 H 16 114/83 98 Intake and Output 08/29/19 08/30/19 08/30/19 22:59 06:59 14:59 Intake Total 480 Balance 480 Intake: Oral 480 Other: Voiding Method Toilet Toilet # Voids 1 1 Weight 72.575 kg Results 08/29/19 12:10 08/29/19 12:10 Cardiac Enzymes 08/29/19 08/29/19 08/29/19 Range/Units 12:10 12:10 18:38 AST 24 (14-36) U/L Troponin I <0.012 <0.012 (0.000-0.034) ng/mL 08/30/19 Range/Units 00:15 AST (14-36) U/L Troponin I <0.012 (0.000-0.034) ng/mL Coagulation 08/29/19 Range/Units 12:10 PT 9.6 (9.0-12.0) sec APTT 20.6 L (22.0-30.0) sec Lipids 08/29/19 Range/Units 12:10 Triglycerides 230 H (<150) mg/dL Cholesterol 292 H (<200) mg/dL HDL Cholesterol 63 H (40-60) mg/dL CBC 08/29/19 Range/Units 12:10 WBC 5.9 (3.8-10.6) k/uL RBC 3.53 L (3.80-5.40) m/uL Hgb 13.5 (11.4-16.0) gm/dL Hct 40.5 (34.0-46.0) % Plt Count 237 (150-450) k/uL Comprehensive Metabolic Panel 08/29/19 Range/Units 12:10 Sodium 140 (137-145) mmol/L Potassium 4.1 (3.5-5.1) mmol/L Chloride 110 H (98-107) mmol/L Carbon Dioxide 21 L (22-30) mmol/L BUN 9 (7-17) mg/dL Creatinine 0.72 (0.52-1.04) mg/dL Glucose 96 (74-99) mg/dL Calcium 9.4 (8.4-10.2) mg/dL AST 24 (14-36) U/L ALT 16 (9-52) U/L Alkaline Phosphatase 61 (38-126) U/L Total Protein 6.9 (6.3-8.2) g/dL Albumin 4.1 (3.5-5.0) g/dL Current Medications Generic Name Dose Route Start Last Admin Trade Name Freq PRN Reason Stop Dose Admin Aspirin 325 mg 08/30/19 09:00 Aspirin PO DAILY MISAEL Azelastine HCl 2 spray 08/29/19 15:48 Astepro EA NOSTRIL BID PRN Congestion Budesonide/Formoterol Fumarate 2 puff 08/29/19 20:00 08/30/19 07:02 Symbicort 160-4.5 Mcg Inhaler INHALATION 2 puff RT-BID MISAEL Administration Carbamazepine 400 mg 08/29/19 21:00 08/29/19 21:03 Tegretol Xr PO 400 mg HS MISAEL Administration Diazepam 10 mg 08/29/19 15:48 08/29/19 23:56 Valium PO 10 mg TID PRN Administration Anxiety Fenofibrate 54 mg 08/29/19 21:00 08/29/19 21:02 Lofibra PO 54 mg HS MISAEL Administration Fluticasone Propionate 2 spray 08/29/19 15:48 Flonase Nasal [place] EA NOSTRIL DAILY PRN Congestion Gabapentin 100 mg 08/29/19 21:00 08/29/19 21:02 Neurontin PO 100 mg BID MISAEL Administration Heparin Sodium (Porcine) 5,000 unit 08/29/19 16:00 08/29/19 23:58 Heparin SQ 5,000 unit Q8HR MISAEL Administration Ibuprofen 800 mg 08/29/19 15:48 08/29/19 16:13 Motrin PO 800 mg Q6H PRN Administration Pain Lisinopril 20 mg 08/29/19 21:00 08/29/19 21:03 Zestril PO 20 mg HS MISAEL Administration Nitroglycerin 0.4 mg 08/29/19 13:18 Nitrostat SUBLINGUAL Q5M PRN Chest Pain Nitroglycerin 1 inch 08/29/19 18:00 08/30/19 00:09 Nitro-Bid Oint TOPICAL Not Given Q6HR MISAEL Sodium Chloride 10 ml 08/29/19 21:00 08/29/19 23:56 Saline Flush IV 10 ml BID MISAEL Administration Ziprasidone 40 mg 08/29/19 21:00 08/29/19 21:02 Geodon PO 40 mg HS MISAEL Administration Intake and Output 08/29/19 08/30/19 08/30/19 22:59 06:59 14:59 Intake Total 480 Balance 480 Intake: Oral 480 Other: Voiding Method Toilet Toilet # Voids 1 1 Weight 72.575 kg 08/29/19 12:10 08/29/19 12:10
[2019-08-30 12:11] VITALS: BP 113/74; PULSE 68; TEMP 98.5
--- NOTE | 2019-08-30 12:53 | ECHOS ---
STRESS ECHOCARDIOGRAM INDICATIONS: Chest pain. BASELINE HEART RATE: 60 BASELINE BLOOD PRESSURE: 92/65 MAXIMUM HEART RATE: 154 MAXIMUM BLOOD PRESSURE: 165/85 85% MPHR: 146 100% MPHR: 172 MAXIMUM STAGE REACHED: 2 TOTAL EXERCISE TIME: 5:45 CLINICAL INFORMATION: Baseline EKG shows sinus rhythm, normal axis, normal intervals. Patient was given intravenous dobutamine over a period of 5.5 minutes achieving 89% of predicted maximal heart rate without chest pain or diagnostic ST-segment depression. Baseline echo shows normal left ventricular size, wall motion and systolic function. Postexercise there is normal hyperdynamic response of all segments of myocardium noted. CONCLUSION: 1. Negative stress test by EKG criteria. 2. Negative dobutamine echo. MMODL / IJN: [id number] /
--- NOTE | 2019-08-30 13:04 | P.DS ---
Providers Date of admission: 08/29/19 13:18 Expected date of discharge: 08/30/19 Attending physician: Braulio Rodriguez MD Consults: 08/29/19 13:18 Consult Physician Urgent Consulting Provider: Pearl Oconnor Consult Reason/Comments: cp Do you want consulting provider notified?: Yes Primary care physician: Bess Kaiser Hospital Course: Chest pain Essential hypertension Dyslipidemia COPD Cervical DJD Macrocytosis Smoker Bipolar disorder Anxiety Seizure disorder GERD with history of [place] Hospital course The patient is a 49-year-old female that was admitted and placed on observation with atypical chest pain noted to have CAD risk factors including hypertension dyslipidemia and smoking. Workup with EKG showed sinus mechanism without suggestion of acute ischemia, her initial and subsequent troponins were negative. Echocardiogram showed a preserved LVEF without any significant valvular abnormalities and dobutamine stress test was negative for any reversible ischemia. Chest x-ray showed no acute pulmonary process, the patient had previously complained of blurry vision and lightheadedness and had outpatient CT of the head that showed no acute intracranial process. The patient also complained of numbness and tingling of her right upper extremity and was thought to have radicular symptoms secondary to her cervical DJD, the patient also complained of nighttime bedwetting but denied any saddle paresthesias. The patient was hemodynamically stable and was continued on her home antihypertensive regimen along with aspirin and statin therapy. She was carter bsequently discharged home with planned follow-up with her PCP with plans for CT Of neck and lumbar spine as an outpatient. The patient was given a prescription for prednisone and Benadryl to pretreat prior to contrast administration as she has a mild ALLERGY being hives. She was discharged home. This discharge process took approximately 30 minutes. Focused exam Cardiovascular: Regular rate and rhythm, no murmurs rubs or gallops Patient Condition at Discharge: Good Plan - Discharge Summary Discharge Rx Participant: No New Discharge Prescriptions: Continue Diazepam [Valium] 10 mg PO TID PRN PRN Reason: Anxiety Estradiol [Estrace] 1 mg PO HS Albuterol Inhaler [Ventolin Hfa Inhaler] 1 - 2 puff INHALATION RT-Q6H PRN PRN Reason: Shortness Of Breath carBAMazepine [TEGretol XR] 400 mg PO HS Fluticasone Nasal [place] [Flonase Nasal [place]] 2 spr EA NOSTRIL DAILY PRN PRN Reason: Congestion Budesonide-Formot 160-4.5 Mcg [Symbicort 160-4.5 Mcg Inhaler] 2 puff INHALATION RT-BID Albuterol Nebulized [Ventolin Nebulized] 2.5 mg INHALATION RT-QID PRN PRN Reason: Shortness Of Breath Azelastine HCl [Astepro] 2 spray EA NOSTRIL BID PRN PRN Reason: Congestion Fenofibrate Nanocrystallized [Fenofibrate] 48 mg PO HS Gabapentin [Neurontin] 100 mg PO BID Ibuprofen [Motrin] 800 mg PO Q6H PRN PRN Reason: Pain Lisinopril [Zestril] 20 mg PO HS Ziprasidone [Geodon] 40 mg PO HS Discharge Medication List Diazepam [Valium] 10 mg PO TID PRN 08/26/15 [History] Estradiol [Estrace] 1 mg PO HS 07/19/16 [History] Albuterol Inhaler [Ventolin Hfa Inhaler] 1 - 2 puff INHALATION RT-Q6H PRN 06/11/18 [History] carBAMazepine [TEGretol XR] 400 mg PO HS 08/22/18 [History] Budesonide-Formot 160-4.5 Mcg [Symbicort 160-4.5 Mcg Inhaler] 2 puff INHALATION RT-BID 04/09/19 [History] Fluticasone Nasal [place] [Flonase Nasal [place]] 2 spr EA NOSTRIL DAILY PRN 04/09/19 [History] Albuterol Nebulized [Ventolin Nebulized] 2.5 mg INHALATION RT-QID PRN 08/29/19 [History] Azelastine HCl [Astepro] 2 spray EA NOSTRIL BID PRN 08/29/19 [History] Fenofibrate Nanocrystallized [Fenofibrate] 48 mg PO HS 08/29/19 [History] Gabapentin [Neurontin] 100 mg PO BID 08/29/19 [History] Ibuprofen [Motrin] 800 mg PO Q6H PRN 08/29/19 [History] Lisinopril [Zestril] 20 mg PO HS 08/29/19 [History] Ziprasidone [Geodon] 40 mg PO HS 08/29/19 [History] Follow up Appointment(s)/Referral(s): Govind Covington MD [Primary Care Provider] - 1-2 days Dano Douglas MD [STAFF PHYSICIAN] - 2 Weeks
== END 2019-08-30 13:39 | disposition home or self-care (01) ==
LOC: EC 11:28 → 1SOBS 13:18
PROVIDERS: ADMIT Family Medicine; ATTEND Family Medicine
DX: R07.89 Other chest pain (principal); R06.02 Shortness of breath; R68.84 Jaw pain; I10 Essential (primary) hypertension; E78.5 Hyperlipidemia, unspecified; J44.9 Chronic obstructive pulmonary disease, unspecified; K21.9 Gastro-esophageal reflux disease without esophagitis; M47.892 Other spondylosis, cervical region; D75.89 Other specified diseases of blood and blood-forming organs; F17.210 Nicotine dependence, cigarettes, uncomplicated; F31.9 Bipolar disorder, unspecified; F41.9 Anxiety disorder, unspecified; G40.909 Epilepsy, unspecified, not intractable, without status epilepticus; F10.20 Alcohol dependence, uncomplicated; M79.7 Fibromyalgia; E03.9 Hypothyroidism, unspecified; M19.90 Unspecified osteoarthritis, unspecified site; G89.29 Other chronic pain; S32.019A Unspecified fracture of first lumbar vertebra, initial encounter for closed fracture; A63.0 Anogenital (venereal) warts; Z85.41 Personal history of malignant neoplasm of cervix uteri; N39.44 Nocturnal enuresis; R13.10 Dysphagia, unspecified; Z86.14 Personal history of Methicillin resistant Staphylococcus aureus infection; Z90.710 Acquired absence of both cervix and uterus; Z90.49 Acquired absence of other specified parts of digestive tract; Z98.51 Tubal ligation status; Z90.722 Acquired absence of ovaries, bilateral; N63.0 Unspecified lump in unspecified breast; Z98.82 Breast implant status; Z80.3 Family history of malignant neoplasm of breast; Z82.49 Family history of ischemic heart disease and other diseases of the circulatory system; Z81.1 Family history of alcohol abuse and dependence; Z83.3 Family history of diabetes mellitus; Z83.511 Family history of glaucoma; Z81.8 Family history of other mental and behavioral disorders; Z79.890 Hormone replacement therapy; Z79.51 Long term (current) use of inhaled steroids; Z79.899 Other long term (current) drug therapy; Z91.041 Radiographic dye allergy status; Z91.012 Allergy to eggs; Z88.0 Allergy status to penicillin; Z88.2 Allergy status to sulfonamides; Z91.018 Allergy to other foods
CPT/HCPCS: 93005 ×2; 96372; 99285; 36415; 94640 ×2; 93306; 93351; 85379; 80061; 80053; 84443; 83735; 84484 ×2; 85025; 85610; 85730; 71046; 90686; G0378 ×2; G0008; S4990; J1250; J1644; 82607; 82746

== ENCOUNTER → 2019-10-03 | Outpatient (CLI) | payer MEDICARE, OTHER ==
--- NOTE | 2019-10-03 14:59 | CT ---
EXAMINATION TYPE: CT cervical spine wo/w con DATE OF EXAM: 10/03/2019 COMPARISON: CT neck April 10, 2019. HISTORY: Neck and arm pain CT DLP: 1049.99 mGycm. Automated Exposure Control for Dose Reduction was Utilized. TECHNIQUE: CT scan of the cervical spine is obtained without and with IV contrast, axial images are obtained, sagittal and coronal reformatted images are also reviewed. Patient injected with 100 cc of [id number]. FINDINGS: Cervical spine is visualized in its entirety from C1 through upper thoracic levels, demonst rates S-shaped scoliotic curvature on coronal images dextroconvex centered at C5 level and levoconvex centered T1 level. There is reversal of normal cervical curvature on sagittal images. There is moder ate to severe disc space narrowing and spurring C4-C5 level. There is moderate disc space narrowing a nd spurring C6-C7 level. Slight grade 1 retrolisthesis C4 on C5, C5 on C6, and C6 on C7 is redemonstr ated. Mild disc space narrowing and spurring C5-C6 level. Review of axial images shows C2-C3 and C3-C4 level to appear within normal limits. Axial images at C4 -C5 show spondylolisthesis with posterior spurring effacing anterior thecal sac and causing mild/mode rate left greater than right bilateral neural foraminal narrowing. Axial images at C6-C7 level show s pondylolisthesis and posterior spurring effacing anterior thecal sac and causing moderate bilateral n eural foraminal narrowing. Thyroid gland is felt within normal limits. Visualized lung apices show mi ld to moderate emphysematous change with small left apical scarring redemonstrated. No suspicious enh ancement. IMPRESSION: Loss of normal cervical curvature with multilevel annular changes greatest C4-C5 and C6-C 7 levels as detailed above. No significant change from prior CT.
--- NOTE | 2019-10-03 15:19 | CT ---
EXAMINATION TYPE: CT lumbar spine wo/w con DATE OF EXAM: 10/03/2019 COMPARISON: CT abdomen pelvis dated 08/23/2019 HISTORY: Neck and arm pain, Hx of DDD CT DLP: 1429.49 mGycm Automated exposure control for dose reduction was used. CONTRAST: CT scan of the lumbar is performed without and with IV Contrast, patient injected with 100 mL of Isov ue 300. TECHNIQUE: Enhanced CT of the lumbar spine was performed. Bone and soft tissue window settings are s ubmitted as well as coronal and sagittal reconstructions. FINDINGS: Vertebroplasty has been performed of the L1 vertebral body with compression deformity seen. Vertebral body height loss is approximately 15%. No significant retropulsion of the superior or infe rior endplates of the vertebral body. Remainder of the lumbar spine vertebral bodies maintain normal vertebral body heights and alignment. Small anterior osteophytes are seen in the lumbar spine. No sig nificant scoliosis. L1-L2: Small broad-based disc bulge is seen resulting in mild bilateral neural foraminal narrowing wi thout spinal canal stenosis. L2-L3: Small broad-based disc bulge results in mild bilateral neural foraminal narrowing without spin al canal stenosis. L3-L4: There is a broad-based disc bulge resulting in mild to moderate bilateral neural foraminal ilia rowing and mild spinal canal stenosis in combination with facet arthropathy and ligamentum flavum buc van. L4-L5: There is a broad-based disc bulge and facet arthropathy with ligamentum flavum buckling result ing in mild spinal canal stenosis and mild to moderate bilateral neural foraminal narrowing. L5-S1: There is a broad-based disc bulge without spinal canal stenosis. Very minimal bilateral neural foraminal narrowing. IMPRESSION: 1. Vertebroplasty change of an old L1 compression deformity. No retropulsion into the spinal canal. N o new vertebral body height loss or malalignment of the lumbar spine. 2. Multilevel degenerative disc disease resulting in mild spinal canal stenosis at L3-L4 and L4-5 in variable degrees of neural foraminal narrowing. Disc herniation would be better evaluated on MRI.
== END | disposition home or self-care (01) ==
LOC: RADCTMAIN 13:44
PROVIDERS: ATTEND Internal Medicine
DX: M43.8X2 Other specified deforming dorsopathies, cervical region (principal); M51.36 Other intervertebral disc degeneration, lumbar region; M48.061 Spinal stenosis, lumbar region without neurogenic claudication; Z98.890 Other specified postprocedural states; Z88.1 Allergy status to other antibiotic agents; Z88.0 Allergy status to penicillin; Z91.041 Radiographic dye allergy status
CPT/HCPCS: 72127; 72133; Q9967

== ENCOUNTER 2019-12-21 14:34 | Emergency (ER) | payer MEDICARE, OTHER ==
[2019-12-21] MEDS ORDERED: SODIUM CHLORIDE 0.9% 1,000 ML IV STA ×2 (14:49→15:45)
[2019-12-21] MEDS ORDERED: METOCLOPRAMIDE 5 MG/ML 2 ML VIAL IVP STA (14:49)
--- NOTE | 2019-12-21 14:53 | ED ---
Nausea/Vomiting/Diarrhea HPI - General Chief complaint: Nausea/Vomiting/Diarrhea Stated complaint: Nausea,Vomiting,Weakness Time Seen by Provider: 12/21/19 14:38 Source: EMS Mode of arrival: EMS Limitations: no limitations - History of Present Illness Initial comments: Patient is a 49-year-old female presenting to the emergency department via EMS with complaints of nausea, vomiting, weakness 2 days. Patient states she has not vomited today but has been for the past 2 days. She still feels nauseous. She states she has not been able to move around her house secondary to increase in weakness. She is also complaining of a tingling sensation in both of her arms/hands. Patient denies any fever, chills, chest pain, shortness of breath. She does admit to mild abdominal discomfort, cramping, no sharp pains. She does admit to history of tubal ligation, cholecystectomy. She's been having regular bowel movements. She denies dysuria. She has no other complaints at this time. She did receive 4 mg Zofran EMS prior to arrival. Upon arrival to the ER, her vital signs are stable. - Related Data Home Medications Medication Instructions Recorded Confirmed Diazepam [Valium] 10 mg PO TID PRN 08/26/15 08/29/19 Estradiol [Estrace] 1 mg PO HS 07/19/16 08/29/19 Albuterol Inhaler [Ventolin Hfa 1 - 2 puff INHALATION RT-Q6H PRN 06/11/18 08/29/19 Inhaler] carBAMazepine [TEGretol XR] 400 mg PO HS 08/22/18 08/29/19 Budesonide-Formot 160-4.5 Mcg 2 puff INHALATION RT-BID 04/09/19 08/29/19 [Symbicort 160-4.5 Mcg Inhaler] Fluticasone Nasal [place] [Flonase 2 spr EA NOSTRIL DAILY PRN 04/09/19 08/29/19 Nasal [place]] Albuterol Nebulized [Ventolin 2.5 mg INHALATION RT-QID PRN 08/29/19 08/29/19 Nebulized] Azelastine HCl [Astepro] 2 spray EA NOSTRIL BID PRN 08/29/19 08/29/19 Fenofibrate Nanocrystallized 48 mg PO HS 08/29/19 08/29/19 [Fenofibrate] Gabapentin [Neurontin] 100 mg PO BID 08/29/19 08/29/19 Ibuprofen [Motrin] 800 mg PO Q6H PRN 08/29/19 08/29/19 Lisinopril [Zestril] 20 mg PO HS 08/29/19 08/29/19 Ziprasidone [Geodon] 40 mg PO HS 08/29/19 08/29/19 Previous Rx's Medication Instructions Recorded diphenhydrAMINE [Benadryl] 50 mg PO ONCE #1 capsule 08/30/19 predniSONE 50 mg PO DAILY #3 tab 08/30/19 Cephalexin [Keflex] 500 mg PO BID 5 Days #10 cap 12/21/19 Ondansetron Odt [Zofran Odt] 4 mg PO Q8HR PRN #10 tab 12/21/19 Allergies Allergy/AdvReac Type Severity Reaction Status Date / Time Penicillins Allergy Severe Anaphylaxis Verified 08/29/19 14:10 Iodinated Contrast Media Allergy Unknown Rash/Hives Verified 08/29/19 14:10 [Iodinated Contrast Media - IV Dye] egg yolk Allergy Unknown Verified 08/29/19 14:10 mustard Allergy Unknown Verified 08/29/19 14:10 sulfamethoxazole Allergy Rash/Hives Verified 08/29/19 14:10 [From Bactrim] trimethoprim [From Bactrim] Allergy Rash/Hives Verified 08/29/19 14:10 Review of Systems ROS Statement: Those systems with pertinent positive or pertinent negative responses have been documented in the HPI. ROS Other: All systems not noted in ROS Statement are negative. Past Medical History Past Medical History: Cancer, COPD, Fibromyalgia, GERD/Reflux, Hyperlipidemia, Hypertension, Osteoarthritis (OA), Pneumonia, Seizure Disorder, Thyroid Disorder Additional Past Medical History / Comment(s): Hpylori, arthritis in multiple joints, compression fracture L1 with chronic pain, last seizure in 2018 or 2019- pt unsure, hypothyroid, pt states she is an alcoholic and quit drinking 4 days ago, past elevated liver function tests, L breast "lump" being monitored, pt states past week she has had stomach pain after eating and past 2 weeks she has had blurry vision/bed wetting. History of Any Multi-Drug Resistant Organisms: MRSA Date of last positivie culture/infection: NOVEMBER 2012 MDRO Source:: RT ELBOW Past Surgical History: Adenoidectomy, Breast Surgery, Cholecystectomy, Hysterect king, Orthopedic Surgery, Tonsillectomy, Tubal Ligation Additional Past Surgical History / Comment(s): Bilateral breast implants, bilateral oophorectomy d/t cysts, EGDs, EGD with dilation, susu fundoplication with revision, R elbow surgery for MRSA infection, R rotator cuff repair, low back surgery (cemented), bilateral hip surgery for tendon/muscle repairs/screws in place. Past Anesthesia/Blood Transfusion Reactions: No Reported Reaction, Family History of Problems w/ Anesthesia Additional Past Anesthesia/Blood Transfusion Reaction / Comment(s): MOTHER= A- FIB WITH ANESTHESIA. Past Psychological History: Anxiety, Bipolar, Depression Smoking Status: Current every day smoker - Past Family History Father Family Medical History: Eye Disorder, Hypertension Additional Family Medical History / Comment(s): Father committed suicide at the age of 58yrs. He had glaucoma Brother(s) Family Medical History: No Reported History Additional Family Medical History / Comment(s): She has one brother that is a recovered alcoholic with no other major medical problems. Sister(s) Additional Family Medical History / Comment(s): Patient has one sister that suffers from depression and anxiety Mother Family Medical History: Cancer, Dementia, Diabetes Mellitus, Deep Vein Thrombosis (DVT), Eye Disorder, Hypertension, Pulmonary Embolus Additional Family Medical History / Comment(s): Corneal transplant, breast cancer General Exam - General Exam Comments Initial Comments: GENERAL: Well-appearing, well-nourished and in no acute distress. HEAD: Atraumatic, normocephalic. EYES: Pupils equal round and reactive to light, extraocular movements intact, sclera anicteric, conjunctiva are normal. ENT: TMs normal, nares patent, oropharynx clear without exudates. Moist mucous membranes. NECK: Normal range of motion, supple without lymphadenopathy or JVD. LUNGS: Breath sounds clear to auscultation bilaterally and equal. No wheezes rales or rhonchi. HEART: Regular rate and rhythm without murmurs, rubs or gallops. ABDOMEN: Mild suprapubic tenderness, no other abdominal pain . Soft, normoactive bowel sounds. No guarding, no rebound. No masses appreciated. : Deferred EXTREMITIES: Normal range of motion, no pitting or edema. No clubbing or cyanosis. NEUROLOGICAL: Normal speech, normal gait. PSYCH: Normal mood, normal affect. SKIN: Warm, Dry, normal turgor, no rashes or lesions noted. Limitations: no limitations Course Vital Signs 12/21/19 12/21/19 14:38 17:22 Temperature 97.9 F 98.4 F Pulse Rate 68 74 Respiratory 16 18 Rate Blood Pressure 117/81 125/61 O2 Sat by Pulse 99 100 Oximetry Medical Decision Making - Medical Decision Making Patient is a 49-year-old female presenting via EMS for nausea, vomiting, weakness 2 days. Vitals are stable. Exam is unremarkable, no abdominal pain. No leukocytosis, lactic acid is 2.4, liver enzymes are mildly elevated. Urine is positive for nitrate, bacteria. HCG is not detected. Patient is given 2 L of fluids as well as Reglan. She reports improvement in her symptoms. Patient will be given Rocephin in the ER and will continue with Keflex at home. She also been given Zofran for additional nausea as needed. Patient is agreement with this plan of care. Patient will follow up with PCP to have liver enzymes re-checked. Return parameters were discussed with the patient she verbalized understanding. Case discussed with Dr. Soriano. - Lab Data Result diagrams: 12/21/19 14:52 12/21/19 14:52 Lab Results 12/21/19 12/21/19 12/21/19 Range/Units 14:52 14:52 14:52 WBC 7.7 (3.8-10.6) k/uL RBC 4.31 (3.80-5.40) m/uL Hgb 14.9 (11.4-16.0) gm/dL Hct 44.3 (34.0-46.0) % MCV 102.7 H (80.0-100.0) fL MCH 34.7 (25.0-35.0) pg MCHC 33.7 (31.0-37.0) g/dL RDW 12.8 (11.5-15.5) % Plt Count 287 (150-450) k/uL Neutrophils % 76 % Lymphocytes % 17 % Monocytes % 5 % Eosinophils % 1 % Basophils % 0 % Neutrophils # 5.8 (1.3-7.7) k/uL Lymphocytes # 1.3 (1.0-4.8) k/uL Monocytes # 0.4 (0-1.0) k/uL Eosinophils # 0.1 (0-0.7) k/uL Basophils # 0.0 (0-0.2) k/uL Macrocytosis Slight Sodium 134 L (137-145) mmol/L Potassium 4.5 (3.5-5.1) mmol/L Chloride 100 (98-107) mmol/L Carbon Dioxide 23 (22-30) mmol/L Anion Gap 11 mmol/L BUN 14 (7-17) mg/dL Creatinine 0.94 (0.52-1.04) mg/dL Est GFR (CKD-EPI)AfAm 83 (>60 ml/min/1.73 sqM) Est GFR (CKD-EPI)NonAf 72 (>60 ml/min/1.73 sqM) Glucose 101 H (74-99) mg/dL Lactic Ac Sepsis Rflx Plasma Lactic Acid Matthew 2.4 H* (0.7-2.0) mmol/L Calcium 9.6 (8.4-10.2) mg/dL Total Bilirubin 1.1 (0.2-1.3) mg/dL AST 144 H (14-36) U/L ALT 101 H (4-34) U/L Alkaline Phosphatase 90 (38-126) U/L Total Protein 7.4 (6.3-8.2) g/dL Albumin 4.7 (3.5-5.0) g/dL Urine Color Urine Appearance (Clear) Urine pH (5.0-8.0) Ur Specific [place] (1.001-1.035) Urine Protein (Negative) Urine Glucose (UA) (Negative) Urine Ketones (Negative) Urine Blood (Negative) Urine Nitrite (Negative) Urine Bilirubin (Negative) Urine Urobilinogen (<2.0) mg/dL Ur Leukocyte Esterase (Negative) Urine RBC (0-5) /hpf Urine WBC (0-5) /hpf Ur Squamous Epith Cells (0-4) /hpf Urine Bacteria (None) /hpf Urine Mucus (None) /hpf Urine HCG, Qual (Not Detectd) 12/21/19 12/21/19 12/21/19 Range/Units 15:33 Unknown Unknown WBC (3.8-10.6) k/uL RBC (3.80-5.40) m/uL Hgb (11.4-16.0) gm/dL Hct (34.0-46.0) % MCV (80.0-100.0) fL MCH (25.0-35.0) pg MCHC (31.0-37.0) g/dL RDW (11.5-15.5) % Plt Count (150-450) k/uL Neutrophils % % Lymphocytes % % Monocytes % % Eosinophils % % Basophils % % Neutrophils # (1.3-7.7) k/uL Lymphocytes # (1.0-4.8) k/uL Monocytes # (0-1.0) k/uL Eosinophils # (0-0.7) k/uL Basophils # (0-0.2) k/uL Macrocytosis Sodium (137-145) mmol/L Potassium (3.5-5.1) mmol/L Chloride (98-107) mmol/L Carbon Dioxide (22-30) mmol/L Anion Gap mmol/L BUN (7-17) mg/dL Creatinine (0.52-1.04) mg/dL Est GFR (CKD-EPI)AfAm (>60 ml/min/1.73 sqM) Est GFR (CKD-EPI)NonAf (>60 ml/min/1.73 sqM) Glucose (74-99) mg/dL Lactic Ac Sepsis Rflx Y Plasma Lactic Acid Matthew (0.7-2.0) mmol/L Calcium (8.4-10.2) mg/dL Total Bilirubin (0.2-1.3) mg/dL AST (14-36) U/L ALT (4-34) U/L Alkaline Phosphatase (38-126) U/L Total Protein (6.3-8.2) g/dL Albumin (3.5-5.0) g/dL Urine Color Yellow Urine Appearance Cloudy H (Clear) Urine pH 6.5 (5.0-8.0) Ur Specific [place] 1.008 (1.001-1.035) Urine Protein Negative (Negative) Urine Glucose (UA) Negative (Negative) Urine Ketones Negative (Negative) Urine Blood Negative (Negative) Urine Nitrite Positive H (Negative) Urine Bilirubin Negative (Negative) Urine Urobilinogen <2.0 (<2.0) mg/dL Ur Leukocyte Esterase Negative (Negative) Urine RBC <1 (0-5) /hpf Urine WBC 3 (0-5) /hpf Ur Squamous Epith Cells 2 (0-4) /hpf Urine Bacteria Many H (None) /hpf Urine Mucus Rare H (None) /hpf Urine HCG, Qual Not Detected (Not Detectd) Disposition Clinical Impression: Dehydration, Nausea & vomiting, UTI (urinary tract infection) Disposition: HOME SELF-CARE Condition: Stable Instructions (If sedation given, give patient instructions): Dehydration (ED) Additional Instructions: Please return to the Emergency Department if symptoms worsen or any other concerns. Continue to increase fluid intake. Take antibiotics as prescribed. May use Zofran as needed for nausea. Follow-up with PCP to have liver enzymes rechecked. Prescriptions: Cephalexin [Keflex] 500 mg PO BID 5 Days #10 cap Ondansetron Odt [Zofran Odt] 4 mg PO Q8HR PRN #10 tab PRN Reason: Nausea Is patient prescribed a controlled substance at d/c from ED?: No Referrals: Govind Covington MD [Primary Care Provider] - 1-2 days
[2019-12-21 15:09] LABS: Basophils % (A) 0 %; Eosinophils # (A) 0.1 k/uL (0-0.7); Eosinophils % (A) 1 %; HCT 44.3 % (34.0-46.0); HGB 14.9 gm/dL (11.4-16.0); Lymphocytes # (A) 1.3 k/uL (1.0-4.8); Lymphocytes % (A) 17 %; MCH 34.7 pg (25.0-35.0); MCHC 33.7 g/dL (31.0-37.0); MCV 102.7 fL (80.0-100.0); Macrocytosis Slight; Mean Platelet Volume 7.7; Monocytes # (A) 0.4 k/uL (0-1.0); Monocytes % (A) 5 %; Neutrophils # (A) 5.8 k/uL (1.3-7.7); Neutrophils % (A) 76 %; Platelet Count 287 k/uL (150-450); RBC 4.31 m/uL (3.80-5.40); RDW 12.8 % (11.5-15.5); WBC 7.7 k/uL (3.8-10.6)
[2019-12-21 15:22] LABS: Albumin 4.7 g/dL (3.5-5.0); Calcium 9.6 mg/dL (8.4-10.2); Potassium 4.5 mmol/L (3.5-5.1); Total Bilirubin 1.1 mg/dL (0.2-1.3); Total Protein 7.4 g/dL (6.3-8.2)
[2019-12-21] MEDS ORDERED: PANTOPRAZOLE 40 MG/10 ML VIAL IVP STA (16:27)
[2019-12-21 16:57] LABS: Appearance,Urine Cloudy (Clear); Bacteria,Urine Many /hpf; Bilirubin,Urine Negative (Negative); Blood,Urine Negative (Negative); Color,Urine Yellow; Glucose,Urine (UA) Negative (Negative); Ketones,Urine Negative (Negative); Leukocyte Esterase,Urine Negative (Negative); Mucus,Urine Rare /hpf; Nitrite,Urine Positive (Negative); PH, Urine 6.5 (5.0-8.0); Protein,Urine Negative (Negative); RBC,Urine <1 /hpf (0-5); Specific Gravity,Urine 1.008 (1.001-1.035); Squamous Epithelial Cell,Urine 2 /hpf (0-4); Urobilinogen,Urine <2.0 mg/dL (<2.0); WBC,Urine 3 /hpf (0-5)
[2019-12-21] MEDS ORDERED: cefTRIAXone IN SWFI 1,000 MG/10 ML SYRINGE IVP STA (17:00)
[2019-12-21 17:26] VITALS: BP 125/61; PULSE 74; RESP 18; TEMP 98.4
== END 2019-12-21 17:33 | disposition home or self-care (01) ==
LOC: EC 14:34
DX: N39.0 Urinary tract infection, site not specified (principal); E86.0 Dehydration; R11.0 Nausea; J44.9 Chronic obstructive pulmonary disease, unspecified; I10 Essential (primary) hypertension; E78.5 Hyperlipidemia, unspecified; G40.909 Epilepsy, unspecified, not intractable, without status epilepticus; F41.9 Anxiety disorder, unspecified; F31.9 Bipolar disorder, unspecified; F17.200 Nicotine dependence, unspecified, uncomplicated; Z79.51 Long term (current) use of inhaled steroids; Z79.899 Other long term (current) drug therapy; Z88.0 Allergy status to penicillin; Z88.1 Allergy status to other antibiotic agents; Z88.2 Allergy status to sulfonamides; Z91.041 Radiographic dye allergy status; Z91.012 Allergy to eggs; Z91.018 Allergy to other foods
CPT/HCPCS: 36415; 80053; 83605; 85025; 81001; 81025; 99285; 96374; 96375 ×2; J2765; J0696; C9113

== ENCOUNTER 2020-01-18 20:08 | Emergency (ER) | payer MEDICARE, OTHER ==
[2020-01-18] MEDS ORDERED: SODIUM CHLORIDE 0.9% 500 ML 500 ML IV STA (20:24)
[2020-01-18] MEDS ORDERED: SODIUM CHLORIDE 0.9% 1,000 ML IV STA (20:24)
[2020-01-18] MEDS ORDERED: diphenhydrAMINE 50 MG/ML 1 ML VIAL IVP STA (20:28)
[2020-01-18] MEDS ORDERED: METOCLOPRAMIDE 5 MG/ML 2 ML VIAL IVP STA (20:28)
--- NOTE | 2020-01-18 20:30 | ED ---
General Adult HPI - General Chief complaint: Recheck/Abnormal Lab/Rx Stated complaint: Hypotension Time Seen by Provider: 01/18/20 20:12 Source: patient, EMS, RN notes reviewed Mode of arrival: EMS Limitations: no limitations - History of Present Illness Initial comments: 41-year-old female presents to the emergency department for multiple complaints. Patient was sent by [facility]. Patient states that she was sitting on her porch 6 days ago when she started to feel dizzy and fell hitting the front of her head on the deck. Patient states that she has a history of this since she was 10 years old and has had multiple workups. She states they cannot tell her why she gets these episodes. Patient states that she has had head aches with associated blurry vision over the past 6 days. States this started after she hit her head. She states she also usually gets neck injections but has not gotten them because of the pandemic. She thinks this may also be intervening to her headaches. Apparently the patient was at [email or web address] today her blood p ressure was 90/60. They became concerned and sent her to the emergency department. Patient states she feels fine aside from her headache.Patient has no other complaints at this time including shortness of breath, chest pain, abdominal pain, nausea or vomiting,. - Related Data Home Medications Medication Instructions Recorded Confirmed Diazepam [Valium] 10 mg PO TID PRN 08/26/15 08/29/19 Estradiol [Estrace] 1 mg PO HS 07/19/16 08/29/19 Albuterol Inhaler (Bulk) [Ventolin 1 - 2 puff INHALATION RT-Q6H PRN 06/11/18 08/29/19 Hfa Inhaler (Bulk)] carBAMazepine [TEGretol XR] 400 mg PO HS 08/22/18 08/29/19 Budesonide-Formot 160-4.5 Mcg 2 puff INHALATION RT-BID 04/09/19 08/29/19 [Symbicort 160-4.5 Mcg Inhaler] Fluticasone Nasal [place] [Flonase 2 spr EA NOSTRIL DAILY PRN 04/09/19 08/29/19 Nasal [place]] Albuterol Nebulized [Ventolin 2.5 mg INHALATION RT-QID PRN 08/29/19 08/29/19 Nebulized] Azelastine HCl [Astepro] 2 spray EA NOSTRIL BID PRN 08/29/19 08/29/19 Fenofibrate Nanocrystallized 48 mg PO HS 08/29/19 08/29/19 [Fenofibrate] Gabapentin [Neurontin] 100 mg PO BID 08/29/19 08/29/19 Ibuprofen [Motrin] 800 mg PO Q6H PRN 08/29/19 08/29/19 Lisinopril [Zestril] 20 mg PO HS 08/29/19 08/29/19 Ziprasidone [Geodon] 40 mg PO HS 08/29/19 08/29/19 Previous Rx's Medication Instructions Recorded diphenhydrAMINE [Benadryl] 50 mg PO ONCE #1 capsule 08/30/19 predniSONE 50 mg PO DAILY #3 tab 08/30/19 Cephalexin [Keflex] 500 mg PO BID 5 Days #10 cap 12/21/19 Ondansetron Odt [Zofran Odt] 4 mg PO Q8HR PRN #10 tab 12/21/19 Allergies Allergy/AdvReac Type Severity Reaction Status Date / Time Penicillins Allergy Severe Anaphylaxis Verified 08/29/19 14:10 Iodinated Contrast Media Allergy Unknown Rash/Hives Verified 08/29/19 14:10 [Iodinated Contrast Media - IV Dye] egg yolk Allergy Unknown Verified 08/29/19 14:10 mustard Allergy Unknown Verified 08/29/19 14:10 sulfamethoxazole Allergy Rash/Hives Verified 08/29/19 14:10 [From Bactrim] trimethoprim [From Bactrim] Allergy Rash/Hives Verified 08/29/19 14:10 Review of Systems ROS Statement: Those systems with pertinent positive or pertinent negative responses have been documented in the HPI. ROS Other: All systems not noted in ROS Statement are negative. Past Medical History Past Medical History: Cancer, COPD, Fibromyalgia, GERD/Reflux, Hyperlipidemia, Hypertension, Osteoarthritis (OA), Pneumonia, Seizure Disorder, Thyroid Disorder Additional Past Medical History / Comment(s): Hpylori, arthritis in multiple joints, compression fracture L1 with chronic pain, last seizure in 2018 or 2019- pt unsure, hypothyroid, pt states she is an alcoholic and quit drinking 4 days ago, past elevated liver function tests, L breast "lump" being monitored, pt states past week she has had stomach pain after eating and past 2 weeks she has had blurry vision/bed wetting. History of Any Multi-Drug Resistant Organisms: MRSA Date of last positivie culture/infection: NOVEMBER 2012 MDRO Source:: RT ELBOW Past Surgical History: Adenoidectomy, Breast Surgery, Cholecystectomy, Hysterectomy, Orthopedic Surgery, Tonsillectomy, Tubal Ligation Additional Past Surgical History / Comment(s): Bilateral breast implants, bilate ral oophorectomy d/t cysts, EGDs, EGD with dilation, susu fundoplication with revision, R elbow surgery for MRSA infection, R rotator cuff repair, low back surgery (cemented), bilateral hip surgery for tendon/muscle repairs/screws in place. Past Anesthesia/Blood Transfusion Reactions: No Reported Reaction, Family History of Problems w/ Anesthesia Additional Past Anesthesia/Blood Transfusion Reaction / Comment(s): MOTHER= A- FIB WITH ANESTHESIA. Past Psychological History: Anxiety, Bipolar, Depression Smoking Status: Current every day smoker - Past Family History Father Family Medical History: Eye Disorder, Hypertension Additional Family Medical History / Comment(s): Father committed suicide at the age of 58yrs. He had glaucoma Brother(s) Family Medical History: No Reported History Additional Family Medical History / Comment(s): She has one brother that is a recovered alcoholic with no other major medical problems. Sister(s) Additional Family Medical History / Comment(s): Patient has one sister that suffers from depression and anxiety Mother Family Medical History: Cancer, Dementia, Diabetes Mellitus, Deep Vein Thrombosis (DVT), Eye Disorder, Hypertension, Pulmonary Embolus Additional Family Medical History / Comment(s): Corneal transplant, breast cancer General Exam Limitations: no limitations General appearance: alert, in no apparent distress Head exam: Present: atraumatic (no Obvious contusions), normocephalic, normal inspection Eye exam: Present: normal appearance, PERRL, EOMI. Absent: scleral icterus, conjunctival injection, periorbital swelling ENT exam: Present: normal exam, mucous membranes moist Neck exam: Present: normal inspection, full ROM. Absent: tenderness, meningi smus, lymphadenopathy Respiratory exam: Present: normal lung sounds bilaterally. Absent: respiratory distress, wheezes, rales, rhonchi, stridor Cardiovascular Exam: Present: regular rate, normal rhythm, normal heart sounds. Absent: systolic murmur, diastolic murmur, rubs, gallop, clicks GI/Abdominal exam: Present: soft, normal bowel sounds. Absent: distended, tenderness, guarding, rebound, rigid Neurological exam: Present: alert, oriented X3, normal gait, other (gcs 15) Psychiatric exam: Present: normal affect, normal mood Course Vital Signs 01/18/20 01/18/20 20:10 21:38 Temperature 97.9 F Pulse Rate 96 80 Respiratory 18 18 Rate Blood Pressure 107/74 106/65 O2 Sat by Pulse 99 98 Oximetry Medical Decision Making - Medical Decision Making CBC CMP unremarkable. Urinalysis negative. Chest x-ray shows no acute process. CT brain shows no acute intracranial hemorrhage, mass effect, or midline shift. Patient is sling better at this time. I did give her Toradol as well. Her blood pressure has been stable throughout her stay. It is within normal limits. At this time patient is stable to be discharged home to follow up with primary care. She'll return for any worsening symptoms. - Lab Data Result diagrams: 01/18/20 20:39 01/18/20 20:39 Lab Results 01/18/20 01/18/20 01/18/20 Range/Units 20:39 20:39 21:35 WBC 5.4 (3.8-10.6) k/uL RBC 4.09 (3.80-5.40) m/uL Hgb 14.1 (11.4-16.0) gm/dL Hct 43.4 (34.0-46.0) % MCV 106.2 H (80.0-100.0) fL MCH 34.4 (25.0-35.0) pg MCHC 32.4 (31.0-37.0) g/dL RDW 12.8 (11.5-15.5) % Plt Count 235 (150-450) k/uL Neutrophils % 50 % Lymphocytes % 40 % Monocytes % 6 % Eosinophils % 2 % Basophils % 1 % Neutrophils # 2.7 (1.3-7.7) k/uL Lymphocytes # 2.2 (1.0-4.8) k/uL Monocytes # 0.3 (0-1.0) k/uL Eosinophils # 0.1 (0-0.7) k/uL Basophils # 0.1 (0-0.2) k/uL Macrocytosis Moderate Sodium 139 (137-145) mmol/L Potassium 5.2 H (3.5-5.1) mmol/L Chloride 108 H (98-107) mmol/L Carbon Dioxide 19 L (22-30) mmol/L Anion Gap 12 mmol/L BUN 21 H (7-17) mg/dL Creatinine 0.90 (0.52-1.04) mg/dL Est GFR (CKD-EPI)AfAm 88 (>60 ml/min/1.73 sqM) Est GFR (CKD-EPI)NonAf 76 (>60 ml/min/1.73 sqM) Glucose 110 H (74-99) mg/dL Calcium 9.6 (8.4-10.2) mg/dL Urine Color Yellow Urine Appearance Clear (Clear) Urine pH 5.5 (5.0-8.0) Ur Specific [place] 1.014 (1.001-1.035) Urine Protein Negative (Negative) Urine Glucose (UA) Negative (Negative) Urine Ketones Negative (Negative) Urine Blood Negative (Negative) Urine Nitrite Negative (Negative) Urine Bilirubin Negative (Negative) Urine Urobilinogen <2.0 (<2.0) mg/dL Ur Leukocyte Esterase Negative (Negative) Disposition Clinical Impression: Head injury Disposition: HOME SELF-CARE Condition: Good Instructions (If sedation given, give patient instructions): Head Injury (ED), Concussion (ED) Additional Instructions: Please follow-up with your doctor in one to 2 days. If you have worsening symptoms return to the emergency department. Is patient prescribed a controlled substance at d/c from ED?: No Referrals: Govind Covington MD [Primary Care Provider] - 1-2 days Time of Disposition: 22:18
[2020-01-18 20:56] LABS: Basophils # (A) 0.1 k/uL (0-0.2); Basophils % (A) 1 %; Eosinophils # (A) 0.1 k/uL (0-0.7); Eosinophils % (A) 2 %; HCT 43.4 % (34.0-46.0); HGB 14.1 gm/dL (11.4-16.0); Lymphocytes # (A) 2.2 k/uL (1.0-4.8); Lymphocytes % (A) 40 %; MCH 34.4 pg (25.0-35.0); MCHC 32.4 g/dL (31.0-37.0); MCV 106.2 fL (80.0-100.0); Macrocytosis Moderate; Mean Platelet Volume 7.8; Monocytes # (A) 0.3 k/uL (0-1.0); Monocytes % (A) 6 %; Neutrophils # (A) 2.7 k/uL (1.3-7.7); Neutrophils % (A) 50 %; Platelet Count 235 k/uL (150-450); RBC 4.09 m/uL (3.80-5.40); RDW 12.8 % (11.5-15.5); WBC 5.4 k/uL (3.8-10.6)
[2020-01-18 21:04] LABS: Calcium 9.6 mg/dL (8.4-10.2); Potassium 5.2 mmol/L (3.5-5.1)
--- NOTE | 2020-01-18 21:39 | CT ---
EXAMINATION TYPE: CT brain wo con DATE OF EXAM: 01/18/2020 COMPARISON: 08/23/2019 HISTORY: Frontal injury [address] DLP: 1084.4 mGycm. Automated Exposure Control for Dose Reduction was Utilized. TECHNIQUE: CT scan of the head is performed without contrast. FINDINGS: There is no acute intracranial hemorrhage, mass effect, or midline shift identified. Mild generalized degenerative change with a greater frontal lobe component is stable from the prior exam. The globes are intact and the visualized sinuses are clear. IMPRESSION: No acute intracranial hemorrhage, mass effect, or midline shift is seen.
--- NOTE | 2020-01-18 21:40 | XR ---
EXAMINATION TYPE: XR chest 1V portable DATE OF EXAM: 01/18/2020 COMPARISON: 08/29/2019 HISTORY: Pain TECHNIQUE: Single frontal view of the chest is obtained. FINDINGS: There is no focal air space opacity, pleural effusion, or pneumothorax seen. The cardiac silhouette size is within normal limits. The osseous structures are intact. Hyperinflation noted. IMPRESSION: No acute process.
[2020-01-18 21:54] LABS: Appearance,Urine Clear (Clear); Bilirubin,Urine Negative (Negative); Blood,Urine Negative (Negative); Color,Urine Yellow; Glucose,Urine (UA) Negative (Negative); Ketones,Urine Negative (Negative); Leukocyte Esterase,Urine Negative (Negative); Nitrite,Urine Negative (Negative); PH, Urine 5.5 (5.0-8.0); Protein,Urine Negative (Negative); Specific Gravity,Urine 1.014 (1.001-1.035); Urobilinogen,Urine <2.0 mg/dL (<2.0)
[2020-01-18] MEDS ORDERED: KETOROLAC 30 MG/ML 1 ML VIAL IVP STA (22:17)
[2020-01-18 22:52] VITALS: BP 110/68; PULSE 82; RESP 16; TEMP 98
== END 2020-01-18 22:52 | disposition home or self-care (01) ==
LOC: EC 20:08
DX: S00.90XA Unspecified superficial injury of unspecified part of head, initial encounter (principal); F41.9 Anxiety disorder, unspecified; F31.9 Bipolar disorder, unspecified; J44.9 Chronic obstructive pulmonary disease, unspecified; I10 Essential (primary) hypertension; G40.909 Epilepsy, unspecified, not intractable, without status epilepticus; E78.5 Hyperlipidemia, unspecified; M79.7 Fibromyalgia; F17.200 Nicotine dependence, unspecified, uncomplicated; Z79.51 Long term (current) use of inhaled steroids; Z79.899 Other long term (current) drug therapy; Z88.0 Allergy status to penicillin; Z88.1 Allergy status to other antibiotic agents; Z88.2 Allergy status to sulfonamides; Z91.041 Radiographic dye allergy status; Z91.012 Allergy to eggs; Z91.048 Other nonmedicinal substance allergy status; W18.09XA Striking against other object with subsequent fall, initial encounter
CPT/HCPCS: 36415; 80048; 85025; 81003; 71045; 70450; 99285; 96374; 96375 ×2; 96361; J1200; J2765; J1885

== ENCOUNTER → 2020-01-30 | Outpatient (CLI) | payer MEDICARE, OTHER ==
[2020-01-30 11:35] LABS: Lactic Acid, Venous 1.2 mmol/L (0.7-2.0)
[2020-01-30 11:55] LABS: Basophils % (A) 0 %; Eosinophils # (A) 0.1 k/uL (0-0.7); Eosinophils % (A) 2 %; HCT 40.8 % (34.0-46.0); HGB 13.3 gm/dL (11.4-16.0); Lymphocytes # (A) 1.8 k/uL (1.0-4.8); Lymphocytes % (A) 36 %; MCH 34.8 pg (25.0-35.0); MCHC 32.6 g/dL (31.0-37.0); MCV 107.1 fL (80.0-100.0); Macrocytosis Moderate; Mean Platelet Volume 7.8; Monocytes # (A) 0.3 k/uL (0-1.0); Monocytes % (A) 6 %; Neutrophils # (A) 2.7 k/uL (1.3-7.7); Neutrophils % (A) 53 %; Platelet Count 321 k/uL (150-450); RBC 3.81 m/uL (3.80-5.40); RDW 12.6 % (11.5-15.5)
[2020-01-30 13:45] LABS: Erythrocyte Sedimentation Rate 6 mm/hr (0-20)
[2020-01-30 17:15] LABS: ALT 37 U/L (8-44); AST 17 U/L (13-35); Alkaline Phosphatase 99 U/L (41-126); BUN/Creat Ratio 11.25 Ratio (12.00-20.00); C Reactive Protein 0.6 mg/dL (0.0-0.8); Calcium 9.5 mg/dL (8.7-10.3); Chloride 111 mmol/L (96-109); Creatine Kinase 35 U/L (26-186); Globulin 2.1 g/dL (1.6-3.3); Glucose 94 mg/dL (70-110); Magnesium 1.8 mg/dL (1.5-2.4); Non-African American GFR(CKD) 87.2 (60.0-200.0); Phosphorus 2.8 mg/dL (2.4-5.1); Potassium 4.4 mmol/L (3.5-5.5); Sodium 145 mmol/L (135-145); Total Bilirubin 0.6 mg/dL (0.3-1.2); Total Protein 6.3 g/dL (6.2-8.2)
[2020-01-30 17:32] LABS: Valproic Acid (Depakene) <3.0 ug/mL (50.0-100.0)
== END | disposition home or self-care (01) ==
LOC: LABWHC1 10:46
PROVIDERS: ATTEND Nurse Practitioner Adult Health
DX: K21.9 Gastro-esophageal reflux disease without esophagitis (principal); G40.909 Epilepsy, unspecified, not intractable, without status epilepticus; R10.84 Generalized abdominal pain; R94.5 Abnormal results of liver function studies; F31.9 Bipolar disorder, unspecified
CPT/HCPCS: 36415; 80053; 80164; 82140; 82550; 83605; 83735; 84100; 85025; 85652; 86038; 86140

== ENCOUNTER → 2020-04-14 | Outpatient (CLI) | payer MEDICARE, OTHER ==
--- NOTE | 2020-04-14 11:35 | CT ---
EXAMINATION TYPE: CT abdomen pelvis wo con DATE OF EXAM: 04/14/2020 COMPARISON: CT 08/23/2019 HISTORY: Left sided Abdominal pain with constipation CT DLP: 273.8 mGycm Automated exposure control for dose reduction was used. TECHNIQUE: Helical acquisition of images from the lung bases through the pelvis. FINDINGS: Lack of intravenous contrast could compromise sensitivity. Lower margin of left breast pros thesis noted incidentally. Postop changes are noted the gastroesophageal junction. LUNG BASES: No significant abnormality is appreciated. AORTA: No significant abnormality is appreciataed. LIVER/GB: Liver is stable. Gallbladder is not seen. PANCREAS: No significant abnormality is seen. SPLEEN: No significant abnormality is seen. ADRENALS: No significant abnormality is seen. KIDNEYS: No significant abnormality is seen. REPRODUCTIVE ORGANS: Not seen URINARY BLADDER: No significant abnormality is seen. BOWEL: Suspect there are some small bowel folds which are thickened in the left hemiabdomen, indeterm inate FREE AIR: No Free Air is visible. ASCITES: None visible. PELVIC ADENOPATHY: None visualized. RETROPERITONEAL ADENOPATHY: No Retroperitoneal Adenopathy visible. OSSEOUS STRUCTURES: Postop changes are noted to the left and right greater trochanters, some heterot opic bone formation present. Vertebral plasty change noted as on prior and L1. IMPRESSION: STABLE NONCONTRAST EXAM. POSTOP CHANGES. CORRELATE FOR POSSIBLE ENTERITIS, NO OTHER SIGNIFICANT ABNOR MALITY
== END | disposition home or self-care (01) ==
LOC: RADCTMAIN 09:41
PROVIDERS: ATTEND Internal Medicine
DX: R94.5 Abnormal results of liver function studies (principal); Z88.0 Allergy status to penicillin; Z88.2 Allergy status to sulfonamides; Z91.048 Other nonmedicinal substance allergy status
CPT/HCPCS: 74176

== ENCOUNTER 2020-05-02 22:38 | Emergency (ER) | payer MEDICARE, OTHER ==
[2020-05-02] MEDS ORDERED: SODIUM CHLORIDE 0.9% 500 ML 500 ML IV STA (23:06)
--- NOTE | 2020-05-02 23:15 | ED ---
Fever HPI - General Chief Complaint: Fever Stated Complaint: Fever Time Seen by Provider: 05/02/20 22:48 Source: patient Mode of arrival: ambulatory Limitations: no limitations - History of Present Illness Initial Comments: This patient is a 50-year-old woman who presents to be evaluated for fever. She states that this started of approximately 1-2 hours ago. She states that her discharge papers told her to be evaluated if she had a fever so she presents for that reason. Patient had neck fusion performed by Dr. Vinod Rodriguez at [facility] on 04/30/2020. Patient does not have any complaints related to her surgical site. She states that she does have a little bit of perineal irritation. She does have an indwelling Vasques catheter as the patient says that she had a somewhat prolonged procedure and a Vasques catheter was placed. In add ition the patient notes that over the past day she has been having urge to urinate which was not there prior to today. MD Complaint: fever -: hour(s) Temperature Source: oral Context: recent procedure Associated Symptoms: dysuria Treatments Prior to Arrival: other (Percocet) - Related Data Home Medications Medication Instructions Recorded Confirmed Diazepam [Valium] 10 mg PO TID PRN 08/26/15 08/29/19 estradioL [Estrace] 1 mg PO HS 07/19/16 08/29/19 Albuterol Inhaler (Mhu) [Ventolin 1 - 2 puff INHALATION RT-Q6H PRN 06/11/18 08/29/19 Hfa Inhaler (Mhu)] carBAMazepine [TEGretol XR] 400 mg PO HS 08/22/18 08/29/19 Budesonide-Formot 160-4.5 Mcg 2 puff INHALATION RT-BID 04/09/19 08/29/19 [Symbicort 160-4.5 Mcg Inhaler] Fluticasone Nasal [place] [Flonase 2 spr EA NOSTRIL DAILY PRN 04/09/19 08/29/19 Nasal [place]] Albuterol Nebulized [Ventolin 2.5 mg INHALATION RT-QID PRN 08/29/19 08/29/19 Nebulized] Azelastine HCl [Astepro] 2 spray EA NOSTRIL BID PRN 08/29/19 08/29/19 Fenofibrate Nanocrystallized 48 mg PO HS 08/29/19 08/29/19 [Fenofibrate] Gabapentin [Neurontin] 100 mg PO BID 08/29/19 08/29/19 Ibuprofen [Motrin] 800 mg PO Q6H PRN 08/29/19 08/29/19 Ziprasidone [Geodon] 40 mg PO HS 08/29/19 08/29/19 lisinopriL [Zestril] 20 mg PO HS 08/29/19 08/29/19 Previous Rx's Medication Instructions Recorded diphenhydrAMINE [Benadryl] 50 mg PO ONCE #1 capsule 08/30/19 predniSONE 50 mg PO DAILY #3 tab 08/30/19 Cephalexin [Keflex] 500 mg PO BID 5 Days #10 cap 12/21/19 Ondansetron Odt [Zofran Odt] 4 mg PO Q8HR PRN #10 tab 12/21/19 Cephalexin [Keflex] 500 mg PO Q6HR #28 cap 05/03/20 Allergies Allergy/AdvReac Type Severity Reaction Status Date / Time Penicillins Allergy Severe Anaphylaxis Verified 08/29/19 14:10 Iodinated Contrast Media Allergy Unknown Rash/Hives Verified 08/29/19 14:10 [Iodinated Contrast Media - IV Dye] egg yolk Allergy Unknown Verified 08/29/19 14:10 mustard Allergy Unknown Verified 08/29/19 14:10 sulfamethoxazole Allergy Rash/Hives Verified 08/29/19 14:10 [From Bactrim] trimethoprim [From Bactrim] Allergy Rash/Hives Verified 08/29/19 14:10 Review of Systems ROS Statement: Those systems with pertinent positive or pertinent negative responses have been documented in the HPI. ROS Other: All systems not noted in ROS Statement are negative. Constitutional: Reports: fever. Denies: chills ENT: Denies: ear pain, throat pain, congestion Respiratory: Denies: cough, dyspnea, wheezes Cardiovascular: Denies: chest pain, palpitations, orthopnea, edema Gastrointestinal: Denies: abdominal pain, nausea, vomiting, diarrhea, constipation Genitourinary: Reports: as per HPI Musculoskeletal: Denies: back pain Skin: Denies: rash Neurological: Denies: headache, weakness, numbness Past Medical History Past Medical History: Cancer, COPD, Fibromyalgia, GERD/Reflux, Hyperlipidemia, Hypertension, Osteoarthritis (OA), Pneumonia, Seizure Disorder, Thyroid Disorder Additional Past Medical History / Comment(s): Hpylori, arthritis in multiple joints, compression fracture L1 with chronic pain, last seizure in 2018 or 2019- pt unsure, hypothyroid, pt states she is an alcoholic and quit drinking 4 days ago, past elevated liver function tests, L breast "lump" being monitored, pt states past week she has had stomach pain after eating and past 2 weeks she has had blurry vision/bed wetting. History of Any Multi-Drug Resistant Organisms: MRSA Date of last positivie culture/infection: NOVEMBER 2012 MDRO Source:: RT ELBOW Past Surgical History: Adenoidectomy, Breast Surgery, Cholecystectomy, Hysterectomy, Orthopedic Surgery, Tonsillectomy, Tubal Ligation Additional Past Surgical History / Comment(s): Bilateral breast implants, bilateral oophorectomy d/t cysts, EGDs, EGD with dilation, susu fundoplication with revision, R elbow surgery for MRSA infection, R rotator cuff repair, low back surgery (cemented), bilateral hip surgery for tendon/muscle repairs/screws in place. Past Anesthesia/Blood Transfusion Reactions: No Reported Reaction, Family History of Problems w/ Anesthesia Additional Past Anesthesia/Blood Transfusion Reaction / Comment(s): MOTHER= A- FIB WITH ANESTHESIA. Past Psychological History: Anxiety, Bipolar, Depression Past Alcohol Use History: Heavy Past Drug Use History: Marijuana - Past Family History Father Family Medical History: Eye Disorder, Hypertension Additional Family Medical History / Comment(s): Father committed suicide at the age of 58yrs. He had glaucoma Brother(s) Family Medical History: No Reported History Additional Family Medical History / Comment(s): She has one brother that is a recovered alcoholic with no other major medical problems. Sister(s) Additional Family Medical History / Comment(s): Patient has one sister that suffers from depression and anxiety Mother Family Medical History: Cancer, Dementia, Diabetes Mellitus, Deep Vein Thrombosis (DVT), Eye Disorder, Hypertension, Pulmonary Embolus Additional Family Medical History / Comment(s): Corneal transplant, breast cancer General Exam Limitations: no limitations General appearance: alert, in no apparent distress Head exam: Present: atraumatic, normocephalic Eye exam: Present: normal appearance. Absent: scleral icterus, conjunctival injection ENT exam: Present: normal oropharynx, mucous membranes moist Neck exam: Present: other (Patient is in cervical collar. There is a dressing over the patient's anterior neck surgical site. There is no visible erythema. No warmth. There is not any tenderness.) Respiratory exam: Present: normal lung sounds bilaterally. Absent: respiratory distress, wheezes, rales, rhonchi, stridor Cardiovascular Exam: Present: regular rate, normal rhythm, normal heart sounds. Absent: systolic murmur, diastolic murmur, rubs, gallop GI/Abdominal exam: Present: soft. Absent: distended, tenderness, guarding, rebound, rigid, mass Extremities exam: Present: normal inspection, normal capillary refill. Absent: pedal edema, calf tenderness Neurological exam: Present: alert Skin exam: Present: warm, dry, intact, normal color. Absent: rash Course Vital Signs 05/02/20 05/03/20 05/03/20 22:39 01:22 03:02 Temperature 99.4 F 97.5 F L 98.3 F Pulse Rate 104 H 77 77 Respiratory 18 18 16 Rate Blood Pressure 119/79 102/68 136/89 O2 Sat by Pulse 97 99 99 Oximetry - Reevaluation(s) Reevaluation #1: 05/02/20 23:13 Dr. Vinod Rodriguez, Reevaluation #2: 05/03/20 01:22 Paged the patient's surgeon to discuss results. Medical Decision Making - Medical Decision Making This patient is a 50-year-old woman presenting with fever approximately 2 days after cervical fusion through an anterior approach. The patient workup does not reveal source of the fever. I did attempt to reach the patient's surgeon, paging 3 times, and at this point the patient decided she would like to go home and will follow-up. Discussed with her being vigilant for signs of infection and returning if there is any sensation change in relation to her surgical site, or if there are any other signs of or symptoms of infection. She is going attempted contact her physician during the day. I did offer admission here or transfer back to the [facility], and she is refusing at this point stating that she feels well now that the temperature has come down. - Lab Data Result diagrams: 05/02/20 23:49 05/02/20 23:49 Lab Results 05/02/20 05/02/20 05/02/20 Range/Units 23:49 23:49 23:49 WBC 5.3 (3.8-10.6) k/uL RBC 3.22 L (3.80-5.40) m/uL Hgb 11.4 (11.4-16.0) gm/dL Hct 35.3 (34.0-46.0) % MCV 109.6 H (80.0-100.0) fL MCH 35.5 H (25.0-35.0) pg MCHC 32.4 (31.0-37.0) g/dL RDW 13.4 (11.5-15.5) % Plt Count 201 (150-450) k/uL Neutrophils % 59 % Lymphocytes % 29 % Monocytes % 6 % Eosinophils % 5 % Basophils % 0 % Neutrophils # 3.2 (1.3-7.7) k/uL Lymphocytes # 1.6 (1.0-4.8) k/uL Monocytes # 0.3 (0-1.0) k/uL Eosinophils # 0.3 (0-0.7) k/uL Basophils # 0.0 (0-0.2) k/uL Manual Slide Review Performed Macrocytosis Marked A Stomatocytes Present Sodium 137 (137-145) mmol/L Potassium 4.7 (3.5-5.1) mmol/L Chloride 108 H (98-107) mmol/L Carbon Dioxide 25 (22-30) mmol/L Anion Gap 4 mmol/L BUN 5 L (7-17) mg/dL Creatinine 0.66 (0.52-1.04) mg/dL Est GFR (CKD-EPI)AfAm >90 (>60 ml/min/1.73 sqM) Est GFR (CKD-EPI)NonAf >90 (>60 ml/min/1.73 sqM) Glucose 102 H (74-99) mg/dL Plasma Lactic Acid Matthew 0.6 L (0.7-2.0) mmol/L Calcium 9.0 (8.4-10.2) mg/dL Total Bilirubin 0.2 (0.2-1.3) mg/dL AST 15 (14-36) U/L ALT 10 (4-34) U/L Alkaline Phosphatase 65 (38-126) U/L Total Protein 5.6 L (6.3-8.2) g/dL Albumin 3.3 L (3.5-5.0) g/dL Urine Color Urine Appearance (Clear) Urine pH (5.0-8.0) Ur Specific [place] (1.001-1.035) Urine Protein (Negative) Urine Glucose (UA) (Negative) Urine Ketones (Negative) Urine Blood (Negative) Urine Nitrite (Negative) Urine Bilirubin (Negative) Urine Urobilinogen (<2.0) mg/dL Ur Leukocyte Esterase (Negative) Urine RBC (0-5) /hpf Urine WBC (0-5) /hpf 05/03/20 Range/Units 00:05 WBC (3.8-10.6) k/uL RBC (3.80-5.40) m/uL Hgb (11.4-16.0) gm/dL Hct (34.0-46.0) % MCV (80.0-100.0) fL MCH (25.0-35.0) pg MCHC (31.0-37.0) g/dL RDW (11.5-15.5) % Plt Count (150-450) k/uL Neutrophils % % Lymphocytes % % Monocytes % % Eosinophils % % Basophils % % Neutrophils # (1.3-7.7) k/uL Lymphocytes # (1.0-4.8) k/uL Monocytes # (0-1.0) k/uL Eosinophils # (0-0.7) k/uL Basophils # (0-0.2) k/uL Manual Slide Review Macrocytosis Stomatocytes Sodium (137-145) mmol/L Potassium (3.5-5.1) mmol/L Chloride (98-107) mmol/L Carbon Dioxide (22-30) mmol/L Anion Gap mmol/L BUN (7-17) mg/dL Creatinine (0.52-1.04) mg/dL Est GFR (CKD-EPI)AfAm (>60 ml/min/1.73 sqM) Est GFR (CKD-EPI)NonAf (>60 ml/min/1.73 sqM) Glucose (74-99) mg/dL Plasma Lactic Acid Matthew (0.7-2.0) mmol/L Calcium (8.4-10.2) mg/dL Total Bilirubin (0.2-1.3) mg/dL AST (14-36) U/L ALT (4-34) U/L Alkaline Phosphatase (38-126) U/L Total Protein (6.3-8.2) g/dL Albumin (3.5-5.0) g/dL Urine Color Light Yellow Urine Appearance Clear (Clear) Urine pH 7.5 (5.0-8.0) Ur Specific [place] 1.008 (1.001-1.035) Urine Protein Negative (Negative) Urine Glucose (UA) Negative (Negative) Urine Ketones Negative (Negative) Urine Blood Small H (Negative) Urine Nitrite Negative (Negative) Urine Bilirubin Negative (Negative) Urine Urobilinogen <2.0 (<2.0) mg/dL Ur Leukocyte Esterase Negative (Negative) Urine RBC 33 H (0-5) /hpf Urine WBC 1 (0-5) /hpf Disposition Clinical Impression: Fever Disposition: HOME SELF-CARE Condition: Good Instructions (If sedation given, give patient instructions): Fever in Adults (ED) Prescriptions: Cephalexin [Keflex] 500 mg PO Q6HR #28 cap Is patient prescribed a controlled substance at d/c from ED?: No Referrals: Govind Covington MD [Primary Care Provider] - 1-2 days
[2020-05-03 00:01] LABS: Basophils % (A) 0 %; Eosinophils # (A) 0.3 k/uL (0-0.7); Eosinophils % (A) 5 %; HCT 35.3 % (34.0-46.0); HGB 11.4 gm/dL (11.4-16.0); Lymphocytes # (A) 1.6 k/uL (1.0-4.8); Lymphocytes % (A) 29 %; MCH 35.5 pg (25.0-35.0); MCHC 32.4 g/dL (31.0-37.0); MCV 109.6 fL (80.0-100.0); Macrocytosis Marked; Mean Platelet Volume 7.7; Monocytes # (A) 0.3 k/uL (0-1.0); Monocytes % (A) 6 %; Neutrophils # (A) 3.2 k/uL (1.3-7.7); Neutrophils % (A) 59 %; Platelet Count 201 k/uL (150-450); RBC 3.22 m/uL (3.80-5.40); RDW 13.4 % (11.5-15.5); WBC 5.3 k/uL (3.8-10.6)
[2020-05-03 00:13] LABS: ALT 10 U/L (4-34); AST 15 U/L (14-36); African American GFR (CKD) >90 (>60 ml/min/1.73 sqM); Albumin 3.3 g/dL (3.5-5.0); Alkaline Phosphatase 65 U/L (38-126); Anion Gap 4 mmol/L; Blood Urea Nitrogen 5 mg/dL (7-17); Carbon Dioxide 25 mmol/L (22-30); Chloride 108 mmol/L (98-107); Glucose 102 mg/dL (74-99); Non-African American GFR(CKD) >90 (>60 ml/min/1.73 sqM); Potassium 4.7 mmol/L (3.5-5.1); Sodium 137 mmol/L (137-145); Total Bilirubin 0.2 mg/dL (0.2-1.3); Total Protein 5.6 g/dL (6.3-8.2)
[2020-05-03 00:27] LABS: Stomatocytes Present
[2020-05-03 00:35] LABS: Appearance,Urine Clear (Clear); Bilirubin,Urine Negative (Negative); Blood,Urine Small (Negative); Color,Urine Light Yellow; Glucose,Urine (UA) Negative (Negative); Ketones,Urine Negative (Negative); Leukocyte Esterase,Urine Negative (Negative); Nitrite,Urine Negative (Negative); PH, Urine 7.5 (5.0-8.0); Protein,Urine Negative (Negative); RBC,Urine 33 /hpf (0-5); Specific Gravity,Urine 1.008 (1.001-1.035); Urobilinogen,Urine <2.0 mg/dL (<2.0); WBC,Urine 1 /hpf (0-5)
--- NOTE | 2020-05-03 00:47 | XR ---
EXAMINATION TYPE: XR chest 2V DATE OF EXAM: 05/03/2020 COMPARISON: 01/18/2020 HISTORY: Fever TECHNIQUE: FINDINGS: Heart is normal. There is minimal linear density at the lung bases. There is slight bluntin g of the right costophrenic angle. There is no heart failure. There are no hilar masses. Mediastinum is normal. There is probably some mild COPD. There is hyperaeration of the right upper lobe. Bony tho rax is intact. There is vertebroplasty at L1 noted. IMPRESSION: Minimal pleural reaction and subsegmental atelectasis at the lung bases appears new contreras red to old exam. Normal heart. There is probably some COPD.
[2020-05-03 01:24] VITALS: PULSE 77
[2020-05-03 03:08] VITALS: BP 136/89; RESP 16; TEMP 98.3
== END 2020-05-03 03:08 | disposition home or self-care (01) ==
LOC: EC 22:38
DX: R50.9 Fever, unspecified (principal); R30.0 Dysuria; F41.9 Anxiety disorder, unspecified; F31.9 Bipolar disorder, unspecified; G40.909 Epilepsy, unspecified, not intractable, without status epilepticus; E78.5 Hyperlipidemia, unspecified; M79.7 Fibromyalgia; J44.9 Chronic obstructive pulmonary disease, unspecified; I10 Essential (primary) hypertension; M19.90 Unspecified osteoarthritis, unspecified site; G89.29 Other chronic pain; M54.5 Low back pain; E03.9 Hypothyroidism, unspecified; Z79.890 Hormone replacement therapy; Z79.51 Long term (current) use of inhaled steroids; Z79.899 Other long term (current) drug therapy; Z88.0 Allergy status to penicillin; Z88.2 Allergy status to sulfonamides; Z88.1 Allergy status to other antibiotic agents; Z91.041 Radiographic dye allergy status; Z91.012 Allergy to eggs; Z91.018 Allergy to other foods; Z98.1 Arthrodesis status; Z86.14 Personal history of Methicillin resistant Staphylococcus aureus infection
CPT/HCPCS: 96365; 99283; 36415; 80053; 83605; 85025; 81001; 87040; 71046; J0696

== ENCOUNTER 2020-05-10 09:30 | Emergency (ER) | payer MEDICARE, OTHER ==
[2020-05-10 09:36] VITALS: RESP 18; TEMP 98.9
[2020-05-10] MEDS ORDERED: DIAZEPAM 5 MG/ML 2 ML INJ IVP STA (09:52)
[2020-05-10] MEDS ORDERED: MORPHINE SULFATE 2 MG/ML SYRINGE IVP STA (09:53)
[2020-05-10] MEDS ORDERED: DIAZEPAM 5 MG/ML 2 ML INJ IM ONE (09:59)
[2020-05-10] MEDS ORDERED: MORPHINE SULFATE 4 MG/ML SYRINGE IM STA (09:59)
--- NOTE | 2020-05-10 10:22 | ED ---
General Adult HPI - General Chief complaint: Neck Pain/Injury Stated complaint: Neck Pain Time Seen by Provider: 05/10/20 09:32 Source: patient, EMS, RN notes reviewed, old records reviewed Mode of arrival: EMS Limitations: no limitations - History of Present Illness Initial comments: 50-year-old female presenting for evaluation of left arm pain. Patient has had bilateral arm pain status post cervical fusion which was on April 30, she is on day 10 postop anterior cervical fusion which was done at [facility]. She states that yesterday she bumped her right shoulder into a doorjamb, very minor injury. No head or neck trauma. She states she has had left arm pain and was concern for a blood clot. She has been taking gabapentin and Percocet although she did not take Percocet in the last 24 hours. Additionally she is on Robaxin. She has these medications at home. - Related Data Home Medications Medication Instructions Recorded Confirmed Diazepam [Valium] 10 mg PO TID PRN 08/26/15 08/29/19 estradioL [Estrace] 1 mg PO HS 07/19/16 08/29/19 Albuterol Inhaler (Mhu) [Ventolin 1 - 2 puff INHALATION RT-Q6H PRN 06/11/18 08/29/19 Hfa Inhaler (Mhu)] carBAMazepine [TEGretol XR] 400 mg PO HS 08/22/18 08/29/19 Budesonide-Formot 160-4.5 Mcg 2 puff INHALATION RT-BID 04/09/19 08/29/19 [Symbicort 160-4.5 Mcg Inhaler] Fluticasone Nasal [place] [Flonase 2 spr EA NOSTRIL DAILY PRN 04/09/19 08/29/19 Nasal [place]] Albuterol Nebulized [Ventolin 2.5 mg INHALATION RT-QID PRN 08/29/19 08/29/19 Nebulized] Azelastine HCl [Astepro] 2 spray EA NOSTRIL BID PRN 08/29/19 08/29/19 Fenofibrate Nanocrystallized 48 mg PO HS 08/29/19 08/29/19 [Fenofibrate] Gabapentin [Neurontin] 100 mg PO BID 08/29/19 08/29/19 Ibuprofen [Motrin] 800 mg PO Q6H PRN 08/29/19 08/29/19 Ziprasidone [Geodon] 40 mg PO HS 08/29/19 08/29/19 lisinopriL [Zestril] 20 mg PO HS 08/29/19 08/29/19 Previous Rx's Medication Instructions Recorded diphenhydrAMINE [Benadryl] 50 mg PO ONCE #1 capsule 08/30/19 predniSONE 50 mg PO DAILY #3 tab 08/30/19 Cephalexin [Keflex] 500 mg PO BID 5 Days #10 cap 12/21/19 Ondansetron Odt [Zofran Odt] 4 mg PO Q8HR PRN #10 tab 12/21/19 Cephalexin [Keflex] 500 mg PO Q6HR #28 cap 05/03/20 Allergies Allergy/AdvReac Type Severity Reaction Status Date / Time Penicillins Allergy Severe Anaphylaxis Verified 05/10/20 09:36 Iodinated Contrast Media Allergy Unknown Rash/Hives Verified 05/10/20 09:36 [Iodinated Contrast Media - IV Dye] egg yolk Allergy Unknown Verified 05/10/20 09:36 mustard Allergy Unknown Verified 05/10/20 09:36 sulfamethoxazole Allergy Rash/Hives Verified 05/10/20 09:36 [From Bactrim] trimethoprim [From Bactrim] Allergy Rash/Hives Verified 05/10/20 09:36 Review of Systems ROS Statement: Those systems with pertinent positive or pertinent negative responses have been documented in the HPI. ROS Other: All systems not noted in ROS Statement are negative. Past Medical History Past Medical History: Cancer, COPD, Fibromyalgia, GERD/Reflux, Hyperlipidemia, Hypertension, Osteoarthritis (OA), Pneumonia, Seizure Disorder, Thyroid Disorder Additional Past Medical History / Comment(s): Hpylori, arthritis in multiple joints, compression fracture L1 with chronic pain, last seizure in 2018 or 2019- pt unsure, hypothyroid, pt states she is an alcoholic and quit drinking 4 days ago, past elevated liver function tests, L breast "lump" being monitored, pt states past week she has had stomach pain after eating and past 2 weeks she has had blurry vision/bed wetting. History of Any Multi-Drug Resistant Organisms: MRSA Date of last positivie culture/infection: NOVEMBER 2012 MDRO Source:: RT ELBOW Past Surgical History: Adenoidectomy, Breast Surgery, Cholecystectomy, Hysterectomy, Orthopedic Surgery, Tonsillectomy, Tubal Ligation Additional Past Surgical History / Comment(s): Bilateral breast implants, bilateral oophorectomy d/t cysts, EGDs, EGD with dilation, susu fundoplication with revision, R elbow surgery for MRSA infection, R rotator cuff repair, low back surgery (cemented), bilateral hip surgery for tendon/muscle repairs/screws in place. Cervical fusion Past Anesthesia/Blood Transfusion Reactions: No Reported Reaction, Family History of Problems w/ Anesthesia Additional Past Anesthesia/Blood Transfusion Reaction / Comment(s): MOTHER= A- FIB WITH ANESTHESIA. Past Psychological History: Anxiety, Bipolar, Depression Smoking Status: Current every day smoker Past Alcohol Use History: Heavy Past Drug Use History: Marijuana - Past Family History Father Family Medical History: Eye Disorder, Hypertension Additional Family Medical History / Comment(s): Father committed suicide at the age of 58yrs. He had glaucoma Brother(s) Family Medical History: No Reported History Additional Family Medical History / Comment(s): She has one brother that is a recovered alcoholic with no other major medical problems. Sister(s) Additional Family Medical History / Comment(s): Patient has one sister that suffers from depression and anxiety Mother Family Medical History: Cancer, Dementia, Diabetes Mellitus, Deep Vein Thrombosis (DVT), Eye Disorder, Hypertension, Pulmonary Embolus Additional Family Medical History / Comment(s): Corneal transplant, breast cancer General Exam Limitations: no limitations General appearance: alert, in no apparent distress Head exam: Present: atraumatic, normocephalic Eye exam: Present: normal appearance, PERRL ENT exam: Present: normal exam Neck exam: Present: other (Patient has an Marion collar in place, incisions are well healing, no purulence or erythema.) Cardiovascular Exam: Present: regular rate, normal rhythm GI/Abdominal exam: Present: soft. Absent: distended, tenderness, guarding Extremities exam: Present: normal inspection, normal capillary refill, other (Normal newspaper illustrator strength bilaterally, strength throughout the upper extremities is normal 5 out of 5. No appreciated swelling, distal pulses are intact.) Neurological exam: Present: alert, oriented X3, CN II-XII intact. Absent: motor sensory deficit Psychiatric exam: Present: normal affect, normal mood Skin exam: Present: warm, dry, intact. Absent: cyanosis, diaphoretic Course Vital Signs 05/10/20 09:32 Temperature 98.9 F Pulse Rate 95 Respiratory 18 Rate Blood Pressure 130/83 O2 Sat by Pulse 99 Oximetry Medical Decision Making - Medical Decision Making 50-year-old with recent cervical fusion presenting for evaluation of left arm pain and concern for a blood clot. She has good strength, normal distal pulses, ultrasound is performed which is negative for DVT. I did x-ray her neck to ensure there is no malalignment, this is negative there was no head or neck trauma. She has an appointment with her spinal surgeon on Monday which is 3 days from now. She will continue the medications as prescribed and return with worsening or changing symptoms. Disposition Clinical Impression: History of fusion of cervical spine, Radiculopathy of cervical spine Disposition: HOME SELF-CARE Condition: Fair Instructions (If sedation given, give patient instructions): Cervical Radiculopathy (ED) Additional Instructions: Please follow up with your spinal surgeon as planned on Monday. Is patient prescribed a controlled substance at d/c from ED?: No Referrals: Govind Covington MD [Primary Care Provider] - 1-2 days Time of Disposition: 11:42
--- NOTE | 2020-05-10 10:37 | XR ---
EXAMINATION TYPE: XR cervical spine limited DATE OF EXAM: 05/10/2020 COMPARISON: CT 10/03/2019 HISTORY: 50-year-old female postoperative evaluation, fusion 10 days ago, neck pain TECHNIQUE: 3 views FINDINGS: Post surgical changes of C4-C7 ACDF. Residual prevertebral soft tissue swelling along the surgical le vels. No predental space widening. Alignment is maintained. Limited odontoid view shows no gross abno rmal body. IMPRESSION: Post surgical change of recent C4-C7 ACDF with residual prevertebral soft tissue swelling along the s urgical levels. No malalignment.
--- NOTE | 2020-05-10 11:23 | US ---
EXAMINATION TYPE: US venous doppler duplex UE LT DATE OF EXAM: 05/10/2020 COMPARISON: NONE CLINICAL HISTORY: 50-year-old female. Spinal fusion C4 through C7 on 04/30/20. Ran into doorframe with right shoulder yesterday and today c/o left shoulder and upper arm burning pain. Horizontal midline n omid incision is intact. TECHNIQUE: Grayscale, color doppler, spectral doppler imaging performed of the deep veins of the uppe r extremities. SIDE PERFORMED: left arm FINDINGS: There is normal flow, compressibility and vascular waveforms. Left Arm: Negative for DVT. Negative for SVT as veins superficial veins were visualized IMPRESSION: No evidence for DVT or SVT within the left upper extremity.
[2020-05-10 11:54] VITALS: BP 116/81; PULSE 61
== END 2020-05-10 11:54 | disposition home or self-care (01) ==
LOC: EC 09:30
DX: M54.12 Radiculopathy, cervical region (principal); M79.602 Pain in left arm; J44.9 Chronic obstructive pulmonary disease, unspecified; M79.7 Fibromyalgia; K21.9 Gastro-esophageal reflux disease without esophagitis; E78.5 Hyperlipidemia, unspecified; I10 Essential (primary) hypertension; M19.90 Unspecified osteoarthritis, unspecified site; G40.909 Epilepsy, unspecified, not intractable, without status epilepticus; E03.9 Hypothyroidism, unspecified; F41.9 Anxiety disorder, unspecified; F17.200 Nicotine dependence, unspecified, uncomplicated; F31.9 Bipolar disorder, unspecified; Z79.51 Long term (current) use of inhaled steroids; Z79.890 Hormone replacement therapy; Z79.899 Other long term (current) drug therapy; Z98.1 Arthrodesis status; Z88.0 Allergy status to penicillin; Z91.041 Radiographic dye allergy status; Z91.012 Allergy to eggs; Z91.018 Allergy to other foods; Z88.2 Allergy status to sulfonamides; Z88.1 Allergy status to other antibiotic agents; Z98.890 Other specified postprocedural states; Z86.14 Personal history of Methicillin resistant Staphylococcus aureus infection
CPT/HCPCS: 72040; 93971; 99284; 96372 ×2; J2270; J3360

== ENCOUNTER → 2020-05-13 | Outpatient (CLI) | payer MEDICARE, OTHER ==
--- NOTE | 2020-05-13 17:56 | CT ---
EXAMINATION TYPE: CT soft tissue neck wo con DATE OF EXAM: 05/13/2020 COMPARISON: 04/10/2019 HISTORY: Pt c/o spasms, pain numbness back of head, into throat, chin, lips and forehead since C-4-[address] DLP: 342.50 mGycm Automated exposure control for dose reduction was used. Images were obtained from the level of the aortic arch to the sella turcica without contrast. There is no mediastinal adenopathy. Thoracic aorta is intact. There is no aneurysm. Thyroid gland is symmetric. I see no cervical adenopathy. Submandibular salivary glands appear normal. The parotid gla nds appear normal. There is no evidence of pharyngeal mass. Epiglottis is normal. Tonsils and adenoid s appear normal. There is anterior fusion surgery from C4 to C7. Vertebra have normal alignment. Prev ertebral soft tissues are not enlarged. I see no pathologic fluid collection. There is no evidence of cervical paraspinal mass. The posterior elements of the cervical spine appear intact. The upper visu alized lung kahn appear clear. There is some mild pulmonary emphysema. There is normal aeration of the visualized paranasal sinuses. IMPRESSION: Multilevel cervical spine fusion surgery. No complicating process seen. Mild pulmonary emphysema.
== END | disposition home or self-care (01) ==
LOC: RADCTMAIN 17:08
PROVIDERS: ATTEND Nurse Practitioner Adult Health
DX: R20.2 Paresthesia of skin (principal); M48.02 Spinal stenosis, cervical region; Z98.1 Arthrodesis status; Z88.0 Allergy status to penicillin; Z88.1 Allergy status to other antibiotic agents; Z91.041 Radiographic dye allergy status
CPT/HCPCS: 70490

== ENCOUNTER 2020-05-22 12:49 | Emergency (ER) | payer MEDICARE, OTHER ==
[2020-05-22 12:55] VITALS: RESP 18
[2020-05-22] MEDS ORDERED: DEXAMETHASONE SOD PHOSPHATE 10 MG/ML 1 ML VIAL IM STA (13:40)
[2020-05-22] MEDS ORDERED: DIAZEPAM 5 MG/ML 2 ML INJ IM ONE (13:40)
[2020-05-22] MEDS ORDERED: MORPHINE SULFATE 4 MG/ML SYRINGE IM STA (13:40)
--- NOTE | 2020-05-22 14:04 | ED ---
General Adult HPI - General Chief complaint: Neck Pain/Injury Stated complaint: Poss Spinal Fluid Leak-Sent by PCP Time Seen by Provider: 05/22/20 13:30 Source: patient, RN notes reviewed, old records reviewed Mode of arrival: wheelchair Limitations: no limitations - History of Present Illness Initial comments: 50-year-old female who is 23 days postop anterior cervical fusion. Patient had fusion between C4 and C7 this was done at outside hospital. She is presenting today with neck pain and headache. The symptoms have been ongoing for the past several weeks in the postoperative period. She denies any injury. She had an outpatient CT performed 1 week ago which was sent to her spinal surgeon. She did have an appointment with the physician animal care assistant covering for her surgeon at that time. She has been taking Percocet, and Valium as well as steroids at home. She continues to have neck pain and some intermittent numbness to the arms. No weakness. Headache is originally from the neck, traveling. CT occipital region. She states her Percocet is not helping. No fever. No vomiting. - Related Data Home Medications Medication Instructions Recorded Confirmed Diazepam [Valium] 10 mg PO TID PRN 08/26/15 08/29/19 estradioL [Estrace] 1 mg PO HS 07/19/16 08/29/19 Albuterol Inhaler (Mhu) [Ventolin 1 - 2 puff INHALATION RT-Q6H PRN 06/11/18 08/29/19 Hfa Inhaler (Mhu)] carBAMazepine [TEGretol XR] 400 mg PO HS 08/22/18 08/29/19 Budesonide-Formot 160-4.5 Mcg 2 puff INHALATION RT-BID 04/09/19 08/29/19 [Symbicort 160-4.5 Mcg Inhaler] Fluticasone Nasal [place] [Flonase 2 spr EA NOSTRIL DAILY PRN 04/09/19 08/29/19 Nasal [place]] Albuterol Nebulized [Ventolin 2.5 mg INHALATION RT-QID PRN 08/29/19 08/29/19 Nebulized] Azelastine HCl [Astepro] 2 spray EA NOSTRIL BID PRN 08/29/19 08/29/19 Fenofibrate Nanocrystallized 48 mg PO HS 08/29/19 08/29/19 [Fenofibrate] Gabapentin [Neurontin] 100 mg PO BID 08/29/19 08/29/19 Ibuprofen [Motrin] 800 mg PO Q6H PRN 08/29/19 08/29/19 Ziprasidone [Geodon] 40 mg PO HS 08/29/19 08/29/19 lisinopriL [Zestril] 20 mg PO HS 08/29/19 08/29/19 Previous Rx's Medication Instructions Recorded diphenhydrAMINE [Benadryl] 50 mg PO ONCE #1 capsule 08/30/19 predniSONE 50 mg PO DAILY #3 tab 08/30/19 Cephalexin [Keflex] 500 mg PO BID 5 Days #10 cap 12/21/19 Ondansetron Odt [Zofran Odt] 4 mg PO Q8HR PRN #10 tab 12/21/19 Cephalexin [Keflex] 500 mg PO Q6HR #28 cap 05/03/20 Allergies Allergy/AdvReac Type Severity Reaction Status Date / Time Penicillins Allergy Severe Anaphylaxis Verified 05/22/20 12:56 Iodinated Contrast Media Allergy Unknown Rash/Hives Verified 05/22/20 12:56 [Iodinated Contrast Media - IV Dye] egg yolk Allergy Unknown Verified 05/22/20 12:56 mustard Allergy Unknown Verified 05/22/20 12:56 Sulfa (Sulfonamide Allergy Unknown Verified 05/22/20 12:56 Antibiotics) sulfamethoxazole Allergy Rash/Hives Verified 05/22/20 12:56 [From Bactrim] trimethoprim [From Bactrim] Allergy Rash/Hives Verified 05/22/20 12:56 Review of Systems ROS Statement: Those systems with pertinent positive or pertinent negative responses have been documented in the HPI. ROS Other: All systems not noted in ROS Statement are negative. Past Medical History Past Medical History: Cancer, COPD, Fibromyalgia, GERD/Reflux, Hyperlipidemia, Hypertension, Osteoarthritis (OA), Pneumonia, Seizure Disorder, Thyroid Disorder Additional Past Medical History / Comment(s): Hpylori, arthritis in multiple fidelia ints, compression fracture L1 with chronic pain, last seizure in 2018 or 2019-pt unsure, hypothyroid, pt states she is an alcoholic and quit drinking 4 days ago, past elevated liver function tests, L breast "lump" being monitored, pt states past week she has had stomach pain after eating and past 2 weeks she has had blurry vision/bed wetting. History of Any Multi-Drug Resistant Organisms: MRSA Date of last positivie culture/infection: NOVEMBER 2012 MDRO Source:: RT ELBOW Past Surgical History: Adenoidectomy, Breast Surgery, Cholecystectomy, Hysterectomy, Orthopedic Surgery, Tonsillectomy, Tubal Ligation Additional Past Surgical History / Comment(s): Bilateral breast implants, bilateral oophorectomy d/t cysts, EGDs, EGD with dilation, susu fundoplication with revision, R elbow surgery for MRSA infection, R rotator cuff repair, low back surgery (cemented), bilateral hip surgery for tendon/muscle repairs/screws in place. Cervical fusion Past Anesthesia/Blood Transfusion Reactions: No Reported Reaction, Family History of Problems w/ Anesthesia Additional Past Anesthesia/Blood Transfusion Reaction / Comment(s): MOTHER= A- FIB WITH ANESTHESIA. Past Psychological History: Anxiety, Bipolar, Depression Smoking Status: Current every day smoker Past Alcohol Use History: Heavy Past Drug Use History: Marijuana - Past Family History Father Family Medical History: Eye Disorder, Hypertension Additional Family Medical History / Comment(s): Father committed suicide at the age of 58yrs. He had glaucoma Brother(s) Family Medical History: No Reported History Additional Family Medical History / Comment(s): She has one brother that is a recovered alcoholic with no other major medical problems. Sister(s) Additional Family Medical History / Comment(s): Patient has one sister that suffers from depression and anxiety Mother Family Medical History: Cancer, Dementia, Diabetes Mellitus, Deep Vein Thrombosis (DVT), Eye Disorder, Hypertension, Pulmonary Embolus Additional Family Medical History / Comment(s): Corneal transplant, breast cancer General Exam Limitations: no limitations General appearance: alert, in no apparent distress Head exam: Present: atraumatic, normocephalic Eye exam: Present: normal appearance, PERRL ENT exam: Present: mucous membranes moist Neck exam: Present: other (Incision is well-healed, clean dry and intact, she has an aspen collar) Cardiovascular Exam: Present: regular rate, normal rhythm GI/Abdominal exam: Present: soft. Absent: distended, tenderness Extremities exam: Present: normal inspection, normal capillary refill. Absent: joint swelling Neurological exam: Present: alert, oriented X3. Absent: motor sensory deficit (Good strength in both upper extremities are 5 out of 5) Psychiatric exam: Present: depressed, anxious Skin exam: Present: warm, dry, intact. Absent: cyanosis, diaphoretic Course Vital Signs 05/22/20 12:53 Temperature 98.8 F Pulse Rate 97 Respiratory 18 Rate Blood Pressure 139/93 O2 Sat by Pulse 99 Oximetry Medical Decision Making - Medical Decision Making 50-year-old female with postoperative pain. Patient is well-appearing with stable vitals. Chest CT performed on the of this month which was 9 days ago which showed C4 through C7 fusion with no complicating process. She's had no injury. She is currently on Percocet, Valium, and was instructed not to take NSAIDs secondary to bleeding risk. Her headache is posterior neck and occipital predominantly. This is better with sitting up, worse with lying flat. No fever. No vomiting. Given morphine, Valium, and Decadron in the emergency department. On reevaluation she is much improved. She is not driving, she had a ride to the emergency department and is being picked up by her friend. She will follow with her spinal surgeon for further evaluation and treatment. Disposition Clinical Impression: History of fusion of cervical spine, Radiculopathy of cervical spine Disposition: HOME SELF-CARE Condition: Fair Instructions (If sedation given, give patient instructions): Acute Headache (ED), Cervical Radiculopathy (ED) Additional Instructions: Please follow up with your surgeon as soon as possible. Is patient prescribed a controlled substance at d/c from ED?: No Referrals: Joaquim Thomason [Primary Care Provider] - 1-2 days
[2020-05-22 14:59] VITALS: BP 127/80; PULSE 70; TEMP 98.4
== END 2020-05-22 14:59 | disposition home or self-care (01) ==
LOC: EC 12:49
DX: M54.12 Radiculopathy, cervical region (principal); F17.200 Nicotine dependence, unspecified, uncomplicated; F41.9 Anxiety disorder, unspecified; F31.9 Bipolar disorder, unspecified; J44.9 Chronic obstructive pulmonary disease, unspecified; E78.5 Hyperlipidemia, unspecified; I10 Essential (primary) hypertension; M19.90 Unspecified osteoarthritis, unspecified site; G40.909 Epilepsy, unspecified, not intractable, without status epilepticus; Z79.51 Long term (current) use of inhaled steroids; Z79.899 Other long term (current) drug therapy; Z98.1 Arthrodesis status; Z98.82 Breast implant status; Z90.722 Acquired absence of ovaries, bilateral; Z86.14 Personal history of Methicillin resistant Staphylococcus aureus infection; Z88.0 Allergy status to penicillin; Z88.2 Allergy status to sulfonamides; Z91.012 Allergy to eggs; Z91.041 Radiographic dye allergy status; Z91.018 Allergy to other foods
CPT/HCPCS: 99283; 96372 ×3; J2270; J1100; J3360

== ENCOUNTER 2020-05-30 08:37 | Emergency (ER) | payer MEDICARE, OTHER ==
[2020-05-30] MEDS ORDERED: SODIUM CHLORIDE 0.9% 1,000 ML IV ONE (08:54)
[2020-05-30] MEDS ORDERED: SODIUM CHLORIDE 0.9% 500 ML 500 ML IV ONE (08:54)
[2020-05-30 08:56] VITALS: RESP 18; TEMP 97.6
--- NOTE | 2020-05-30 09:04 | ED ---
General Adult HPI - General Chief complaint: Recheck/Abnormal Lab/Rx Stated complaint: hypotension Time Seen by Provider: 05/30/20 08:37 Source: patient, RN notes reviewed, old records reviewed Mode of arrival: ambulatory Limitations: no limitations - History of Present Illness Initial comments: This is a 50-year-old female who presents to the emergency department complaining of being dizzy. Patient states she took her blood pressure and she was hypotensive. Patient states she recently started Flomax and ever since then she has felt dizzy. Patient states she's been having difficulty urinating for the last 3 weeks ever since she had a catheter in place. Patient states she was taking the Flomax to see if it would help and it has not. Patient denies any fever chills. Patient denies any headache patient denies numbness weakness per patient denies chest pain difficult breathing shortest breath per patient denies any abdominal pain patient denies nausea vomiting or diarrhea. - Related Data Home Medications Medication Instructions Recorded Confirmed Diazepam [Valium] 10 mg PO TID PRN 08/26/15 08/29/19 estradioL [Estrace] 1 mg PO HS 07/19/16 08/29/19 Albuterol Inhaler (Mhu) [Ventolin 1 - 2 puff INHALATION RT-Q6H PRN 06/11/18 08/29/19 Hfa Inhaler (Mhu)] carBAMazepine [TEGretol XR] 400 mg PO HS 08/22/18 08/29/19 Budesonide-Formot 160-4.5 Mcg 2 puff INHALATION RT-BID 04/09/19 08/29/19 [Symbicort 160-4.5 Mcg Inhaler] Fluticasone Nasal [place] [Flonase 2 spr EA NOSTRIL DAILY PRN 04/09/19 08/29/19 Nasal [place]] Albuterol Nebulized [Ventolin 2.5 mg INHALATION RT-QID PRN 08/29/19 08/29/19 Nebulized] Azelastine HCl [Astepro] 2 spray EA NOSTRIL BID PRN 08/29/19 08/29/19 Fenofibrate Nanocrystallized 48 mg PO HS 08/29/19 08/29/19 [Fenofibrate] Gabapentin [Neurontin] 100 mg PO BID 08/29/19 08/29/19 Ibuprofen [Motrin] 800 mg PO Q6H PRN 08/29/19 08/29/19 Ziprasidone [Geodon] 40 mg PO HS 08/29/19 08/29/19 lisinopriL [Zestril] 20 mg PO HS 08/29/19 08/29/19 Previous Rx's Medication Instructions Recorded diphenhydrAMINE [Benadryl] 50 mg PO ONCE #1 capsule 08/30/19 predniSONE 50 mg PO DAILY #3 tab 08/30/19 Cephalexin [Keflex] 500 mg PO BID 5 Days #10 cap 12/21/19 Ondansetron Odt [Zofran Odt] 4 mg PO Q8HR PRN #10 tab 12/21/19 Cephalexin [Keflex] 500 mg PO Q6HR #28 cap 05/03/20 Allergies Allergy/AdvReac Type Severity Reaction Status Date / Time Penicillins Allergy Severe Anaphylaxis Verified 05/30/20 08:56 Iodinated Contrast Media Allergy Unknown Rash/Hives Verified 05/30/20 08:56 [Iodinated Contrast Media - IV Dye] egg yolk Allergy Unknown Verified 05/30/20 08:56 mustard Allergy Unknown Verified 05/30/20 08:56 Sulfa (Sulfonamide Allergy Unknown Verified 05/30/20 08:56 Antibiotics) sulfamethoxazole Allergy Rash/Hives Verified 05/30/20 08:56 [From Bactrim] trimethoprim [From Bactrim] Allergy Rash/Hives Verified 05/30/20 08:56 Review of Systems ROS Statement: Those systems with pertinent positive or pertinent negative responses have been documented in the HPI. ROS Other: All systems not noted in ROS Statement are negative. Past Medical History Past Medical History: Cancer, COPD, Fibromyalgia, GERD/Reflux, Hyperlipidemia, Hypertension, Osteoarthritis (OA), Pneumonia, Seizure Disorder, Thyroid Disorder Additional Past Medical History / Comment(s): Hpylori, arthritis in multiple joints, compression fracture L1 with chronic pain, last seizure in 2018 or 2019- pt unsure, hypothyroid, pt states she is an alcoholic and quit drinking 4 days ago, past elevated liver function tests, L breast "lump" being monitored, pt states past week she has had stomach pain after eating and past 2 weeks she has had blurry vision/bed wetting. History of Any Multi-Drug Resistant Organisms: MRSA Date of last positivie culture/infection: NOVEMBER 2012 MDRO Source:: RT ELBOW Past Surgical History: Adenoidectomy, Breast Surgery, Cholecystectomy, Hysterectomy, Orthopedic Surgery, Tonsillectomy, Tubal Ligation Additional Past Surgical History / Comment(s): Bilateral breast implants, bi lateral oophorectomy d/t cysts, EGDs, EGD with dilation, susu fundoplication with revision, R elbow surgery for MRSA infection, R rotator cuff repair, low back surgery (cemented), bilateral hip surgery for tendon/muscle repairs/screws in place. Cervical fusion Past Anesthesia/Blood Transfusion Reactions: No Reported Reaction, Family History of Problems w/ Anesthesia Additional Past Anesthesia/Blood Transfusion Reaction / Comment(s): MOTHER= A-F IB WITH ANESTHESIA. Past Psychological History: Anxiety, Bipolar, Depression Smoking Status: Current every day smoker Past Alcohol Use History: Occasional Past Drug Use History: Marijuana - Past Family History Father Family Medical History: Eye Disorder, Hypertension Additional Family Medical History / Comment(s): Father committed suicide at the age of 58yrs. He had glaucoma Brother(s) Family Medical History: No Reported History Additional Family Medical History / Comment(s): She has one brother that is a recovered alcoholic with no other major medical problems. Sister(s) Additional Family Medical History / Comment(s): Patient has one sister that suffers from depression and anxiety Mother Family Medical History: Cancer, Dementia, Diabetes Mellitus, Deep Vein Thrombosis (DVT), Eye Disorder, Hypertension, Pulmonary Embolus Additional Family Medical History / Comment(s): Corneal transplant, breast cancer General Exam - General Exam Comments Initial Comments: GENERAL: Patient is well-developed and well-nourished. Patient is nontoxic and well- hydrated and is in no acute distress. ENT Neck is soft and supple. No significant lymphadenopathy is noted. Oropharynx is clear. Moist mucous membranes. Neck has full range of motion without eliciting any pain. EYES: The sclera were anicteric and conjunctiva were pink and moist. Extraocular movements were intact and pupils were equal round and reactive to light. Eyelids were unremarkable. PULMONARY: Unlabored respirations. Good breath sounds bilaterally. No audible rales rhonchi or wheezing was noted. CARDIOVASCULAR: There is a regular rate and rhythm without any murmurs gallops or rubs. ABDOMEN: Soft and nontender with normal bowel sounds. SKIN: Skin is clear with no lesions or rashes and otherwise unremarkable. NEUROLOGIC: Patient is alert and oriented x3. Cranial nerves II through XII are grossly intact. Motor and sensory are also intact. Normal speech, volume and content. Symmetrical smile. MUSCULOSKELETAL: Normal extremities with adequate strength and full range of motion. LYMPHATICS: No significant lymphadenopathy is noted PSYCHIATRIC: Normal psychiatric evaluation. Limitations: no limitations Course Vital Signs 05/30/20 05/30/20 08:52 09:40 Temperature 97.6 F Pulse Rate 73 Pulse Rate [ 73 Sitting] Pulse Rate [ 74 Standing] Pulse Rate [ 66 Supine] Respiratory 18 18 Rate Blood Pressure 113/51 Blood Pressure 116/55 [Sitting] Blood Pressure 117/68 [Standing] Blood Pressure 109/62 [Supine] O2 Sat by Pulse 98 Oximetry Medical Decision Making - Medical Decision Making EKG shows normal sinus rhythm at 72 bpm CO interval 158 QRSs 82 QT interval 46 QTC is 444. Patient's EKG shows no ST segment elevation or depression. Patient's orthostatics were normal and the emergency department. Patient is a symptomatically walking around the emergency department. Patient understands and taking the Flomax can drop her pressure she's can stop taking the Flomax because it is not helping her. - Lab Data Result diagrams: 05/30/20 08:57 05/30/20 08:57 Lab Results 05/30/20 05/30/20 05/30/20 Range/Units 08:57 08:57 09:49 WBC 7.5 (3.8-10.6) k/uL RBC 3.38 L (3.80-5.40) m/uL Hgb 12.0 (11.4-16.0) gm/dL Hct 37.2 (34.0-46.0) % MCV 110.1 H (80.0-100.0) fL MCH 35.6 H (25.0-35.0) pg MCHC 32.3 (31.0-37.0) g/dL RDW 13.7 (11.5-15.5) % Plt Count 238 (150-450) k/uL Neutrophils % 67 % Lymphocytes % 23 % Monocytes % 6 % Eosinophils % 3 % Basophils % 0 % Neutrophils # 5.0 (1.3-7.7) k/uL Lymphocytes # 1.7 (1.0-4.8) k/uL Monocytes # 0.5 (0-1.0) k/uL Eosinophils # 0.2 (0-0.7) k/uL Basophils # 0.0 (0-0.2) k/uL Manual Slide Review Performed Macrocytosis Marked A Sodium 137 (137-145) mmol/L Potassium 4.1 (3.5-5.1) mmol/L Chloride 109 H (98-107) mmol/L Carbon Dioxide 24 (22-30) mmol/L Anion Gap 4 mmol/L BUN 15 (7-17) mg/dL Creatinine 0.71 (0.52-1.04) mg/dL Est GFR (CKD-EPI)AfAm >90 (>60 ml/min/1.73 sqM) Est GFR (CKD-EPI)NonAf >90 (>60 ml/min/1.73 sqM) Glucose 93 (74-99) mg/dL Calcium 8.8 (8.4-10.2) mg/dL Magnesium 1.9 (1.6-2.3) mg/dL Total Bilirubin 0.3 (0.2-1.3) mg/dL AST 22 (14-36) U/L ALT 64 H (4-34) U/L Alkaline Phosphatase 104 (38-126) U/L Total Protein 6.0 L (6.3-8.2) g/dL Albumin 3.6 (3.5-5.0) g/dL Urine Color Light Yellow Urine Appearance Clear (Clear) Urine pH 6.0 (5.0-8.0) Ur Specific [place] 1.008 (1.001-1.035) Urine Protein Negative (Negative) Urine Glucose (UA) Negative (Negative) Urine Ketones Negative (Negative) Urine Blood Negative (Negative) Urine Nitrite Negative (Negative) Urine Bilirubin Negative (Negative) Urine Urobilinogen <2.0 (<2.0) mg/dL Ur Leukocyte Esterase Negative (Negative) Carbamazepine 8.4 ug/mL Disposition Clinical Impression: Orthostatic hypotension, Adverse effects of medication Disposition: HOME SELF-CARE Instructions (If sedation given, give patient instructions): Hypotension (ED) Additional Instructions: Patient should stop taking Flomax. Is patient prescribed a controlled substance at d/c from ED?: No Referrals: Joaquim Thomason [Primary Care Provider] - 1-2 days Time of Disposition: 10:10
[2020-05-30 09:32] LABS: Basophils % (A) 0 %; Eosinophils # (A) 0.2 k/uL (0-0.7); Eosinophils % (A) 3 %; HCT 37.2 % (34.0-46.0); Lymphocytes # (A) 1.7 k/uL (1.0-4.8); Lymphocytes % (A) 23 %; MCH 35.6 pg (25.0-35.0); MCHC 32.3 g/dL (31.0-37.0); MCV 110.1 fL (80.0-100.0); Macrocytosis Marked; Mean Platelet Volume 7.5; Monocytes # (A) 0.5 k/uL (0-1.0); Monocytes % (A) 6 %; Neutrophils % (A) 67 %; Platelet Count 238 k/uL (150-450); RBC 3.38 m/uL (3.80-5.40); RDW 13.7 % (11.5-15.5); WBC 7.5 k/uL (3.8-10.6)
[2020-05-30 09:37] LABS: ALT 64 U/L (4-34); AST 22 U/L (14-36); African American GFR (CKD) >90 (>60 ml/min/1.73 sqM); Albumin 3.6 g/dL (3.5-5.0); Alkaline Phosphatase 104 U/L (38-126); Anion Gap 4 mmol/L; Blood Urea Nitrogen 15 mg/dL (7-17); Calcium 8.8 mg/dL (8.4-10.2); Carbamazepine (Tegretol) 8.4 ug/mL; Carbon Dioxide 24 mmol/L (22-30); Chloride 109 mmol/L (98-107); Glucose 93 mg/dL (74-99); Magnesium 1.9 mg/dL (1.6-2.3); Non-African American GFR(CKD) >90 (>60 ml/min/1.73 sqM); Potassium 4.1 mmol/L (3.5-5.1); Sodium 137 mmol/L (137-145); Total Bilirubin 0.3 mg/dL (0.2-1.3)
[2020-05-30 09:47] VITALS: PULSE 66
[2020-05-30 10:00] LABS: Appearance,Urine Clear (Clear); Bilirubin,Urine Negative (Negative); Blood,Urine Negative (Negative); Color,Urine Light Yellow; Glucose,Urine (UA) Negative (Negative); Ketones,Urine Negative (Negative); Leukocyte Esterase,Urine Negative (Negative); Nitrite,Urine Negative (Negative); Protein,Urine Negative (Negative); Specific Gravity,Urine 1.008 (1.001-1.035); Urobilinogen,Urine <2.0 mg/dL (<2.0)
[2020-05-30 10:36] VITALS: BP 115/63
== END 2020-05-30 10:33 | disposition home or self-care (01) ==
LOC: EC 08:37
DX: I95.1 Orthostatic hypotension (principal); T44.6X5A Adverse effect of alpha-adrenoreceptor antagonists, initial encounter; I10 Essential (primary) hypertension; F41.9 Anxiety disorder, unspecified; G40.919 Epilepsy, unspecified, intractable, without status epilepticus; J44.9 Chronic obstructive pulmonary disease, unspecified; F31.9 Bipolar disorder, unspecified; E78.5 Hyperlipidemia, unspecified; M79.7 Fibromyalgia; M19.90 Unspecified osteoarthritis, unspecified site; F17.200 Nicotine dependence, unspecified, uncomplicated; Z79.890 Hormone replacement therapy; Z79.899 Other long term (current) drug therapy; Z79.51 Long term (current) use of inhaled steroids; Z88.0 Allergy status to penicillin; Z91.012 Allergy to eggs; Z91.041 Radiographic dye allergy status; Z91.018 Allergy to other foods; Z88.2 Allergy status to sulfonamides; Z88.1 Allergy status to other antibiotic agents; Z85.9 Personal history of malignant neoplasm, unspecified
CPT/HCPCS: 36415; 80053; 80156; 81003; 83735; 85025; 93005; 96360; 99285

== ENCOUNTER → 2020-06-05 | Outpatient (CLI) | payer MEDICARE, OTHER ==
[~2020-06-05] MED LIST changes: +COSYNTROPIN 0.25 MG VIAL IVP NR; -LACTATED RINGERS 1,000 ML IV SCH; -LIDOCAINE 1% 20 ML VIAL (10MG/ML) FOR IV START INTRADERMA PRN; +SODIUM CHLORIDE 0.9% 500 ML 500 ML in EMPTY BAG 1 BAG IV PRN
[2020-06-05 08:40] VITALS: BP 146/98; PULSE 72; RESP 16; TEMP 98.3
== END | disposition home or self-care (01) ==
LOC: PROCWHC3 08:14
PROVIDERS: ATTEND Nurse Practitioner Adult Health
DX: E27.40 Unspecified adrenocortical insufficiency (principal); I95.9 Hypotension, unspecified
CPT/HCPCS: 82533; 82024; 96374 ×2; 36415; J0834

== ENCOUNTER → 2020-06-05 | Outpatient (CLI) | payer MEDICARE, OTHER | END | disposition home or self-care (01) | LOC: LABWHC1 07:59 | PROVIDERS: ATTEND Nurse Practitioner Adult Health | DX: I95.9 Hypotension, unspecified (principal); E27.40 Unspecified adrenocortical insufficiency ==

== ENCOUNTER → 2020-06-29 | Outpatient (CLI) | payer MEDICARE, OTHER ==
--- NOTE | 2020-06-29 11:12 | US ---
EXAMINATION TYPE: US venous doppler duplex LE LT DATE OF EXAM: 06/29/2020 11:01 AM COMPARISON: NONE CLINICAL HISTORY: M79.662,R22.42 PAIN AND SWELLING LT LOWER LIMB. Pain left leg SIDE PERFORMED: Left TECHNIQUE: The lower extremity deep venous system is examined utilizing real time linear array sonog evelina with graded compression, doppler sonography and color-flow sonography. VESSELS IMAGED: External Iliac Vein (EIV) Common Femoral Vein Deep Femoral Vein Greater Saphenous Vein * Femoral Vein Popliteal Vein Small Saphenous Vein * Proximal Calf Veins (* superficial vessels) Left Leg: Negative for DVT Results called to Heriberto at Dr's office at time of exam IMPRESSION: 1. No diagnostic evidence of DVT as visualized.
== END | disposition home or self-care (01) ==
LOC: RADUSWWP 10:45
PROVIDERS: ATTEND Nurse Practitioner Adult Health
DX: R22.42 Localized swelling, mass and lump, left lower limb (principal); M79.662 Pain in left lower leg; Z88.0 Allergy status to penicillin; Z91.041 Radiographic dye allergy status

== ENCOUNTER 2020-07-03 22:45 | Emergency (ER) | payer MEDICARE, OTHER ==
[2020-07-03 23:08] VITALS: BP 141/92; PULSE 71; RESP 18; TEMP 97.7
[2020-07-03] MEDS ORDERED: HYDROmorphone 1 MG/ML 1 ML SYRINGE IVP STA (23:29)
[2020-07-03] MEDS ORDERED: LIDOCAINE 5% PATCH TOPICAL STA (23:30)
[2020-07-03] MEDS ORDERED: KETOROLAC 15 MG/ML 1 ML VIAL IM STA (23:30)
[2020-07-03] MEDS ORDERED: ORPHENADRINE 30 MG/ML 2 ML VIAL IM STA (23:30)
--- NOTE | 2020-07-03 23:35 | ED ---
Neck Injury/Pain HPI - General Chief Complaint: Neck Pain/Injury Stated Complaint: Neck Pain, Headache Time Seen by Provider: 07/03/20 23:12 Mode of arrival: ambulatory Limitations: no limitations - History of Present Illness Initial Comments: Renay is a 50-year-old female who had a C4 through [address] Cantu on April 30. Patient reports she's been doing well postoperatively but over the past week or 2 has been much more active than usual much more active than advised by her neurosurgeon. She states that earlier this week she was building a blanket [place] with her children in their living room, the valero were composed of mattresses and covered with blankets. A mattress fell hitting her. Patient reports that since that time she's had worsening pain and muscle spasm in her neck. She denies any numbness or tingling in her arms or legs. She denies any weaknesses or difficulty with walking or participating in activities of daily living. She states that today the pain was so bad she didn't even bother taking her home medications of Percocet and Valium and came to the ER for pain management. - Related Data Home Medications Medication Instructions Recorded Confirmed Diazepam [Valium] 10 mg PO TID PRN 08/26/15 08/29/19 estradioL [Estrace] 1 mg PO HS 07/19/16 08/29/19 Albuterol Inhaler (Mhu) [Ventolin 1 - 2 puff INHALATION RT-Q6H PRN 06/11/18 08/29/19 Hfa Inhaler (Mhu)] carBAMazepine [TEGretol XR] 400 mg PO HS 08/22/18 08/29/19 Budesonide-Formot 160-4.5 Mcg 2 puff INHALATION RT-BID 04/09/19 08/29/19 [Symbicort 160-4.5 Mcg Inhaler] Fluticasone Nasal [place] [Flonase 2 spr EA NOSTRIL DAILY PRN 04/09/19 08/29/19 Nasal [place]] Albuterol Nebulized [Ventolin 2.5 mg INHALATION RT-QID PRN 08/29/19 08/29/19 Nebulized] Azelastine HCl [Astepro] 2 spray EA NOSTRIL BID PRN 08/29/19 08/29/19 Fenofibrate Nanocrystallized 48 mg PO HS 08/29/19 08/29/19 [Fenofibrate] Gabapentin [Neurontin] 100 mg PO BID 08/29/19 08/29/19 Ibuprofen [Motrin] 800 mg PO Q6H PRN 08/29/19 08/29/19 Ziprasidone [Geodon] 40 mg PO HS 08/29/19 08/29/19 lisinopriL [Zestril] 20 mg PO HS 08/29/19 08/29/19 Previous Rx's Medication Instructions Recorded diphenhydrAMINE [Benadryl] 50 mg PO ONCE #1 capsule 08/30/19 predniSONE 50 mg PO DAILY #3 tab 08/30/19 Cephalexin [Keflex] 500 mg PO BID 5 Days #10 cap 12/21/19 Ondansetron Odt [Zofran Odt] 4 mg PO Q8HR PRN #10 tab 12/21/19 Cephalexin [Keflex] 500 mg PO Q6HR #28 cap 05/03/20 Lidocaine 5% Patch [Lidoderm] 1 patch TOPICAL DAILY #30 patch 07/03/20 Allergies Allergy/AdvReac Type Severity Reaction Status Date / Time Penicillins Allergy Severe Anaphylaxis Verified 07/03/20 23:08 Iodinated Contrast Media Allergy Unknown Rash/Hives Verified 07/03/20 23:08 [Iodinated Contrast Media - IV Dye] egg yolk Allergy Unknown Verified 07/03/20 23:08 mustard Allergy Unknown Verified 07/03/20 23:08 Sulfa (Sulfonamide Allergy Unknown Verified 07/03/20 23:08 Antibiotics) sulfamethoxazole Allergy Rash/Hives Verified 07/03/20 23:08 [From Bactrim] trimethoprim [From Bactrim] Allergy Rash/Hives Verified 07/03/20 23:08 Review of Systems ROS Statement: Those systems with pertinent positive or pertinent negative responses have been documented in the HPI. ROS Other: All systems not noted in ROS Statement are negative. Past Medical History Past Medical History: Cancer, COPD, Fibromyalgia, GERD/Reflux, Hyperlipidemia, Hypertension, Osteoarthritis (OA), Pneumonia, Seizure Disorder, Thyroid Disorder Additional Past Medical History / Comment(s): Hpylori, arthritis in multiple joints, compression fracture L1 with chronic pain, last seizure in 2018 or 2019- pt unsure, hypothyroid, pt states she is an alcoholic and quit drinking 4 days ago, past elevated liver function tests, L breast "lump" being monitored, pt states past week she has had stomach pain after eating and past 2 weeks she has had blurry vision/bed wetting. History of Any Multi-Drug Resistant Organisms: MRSA Date of last positivie culture/infection: NOVEMBER 2012 MDRO Source:: RT ELBOW Past Surgical History: Adenoidectomy, Breast Surgery, Cholecystectomy, Hysterectomy, Orthopedic Surgery, Tonsillectomy, Tubal Ligation Additional Past Surgical History / Comment(s): Bilateral breast implants, bilateral oophorectomy d/t cysts, EGDs, EGD with dilation, susu fundoplication with revision, R elbow surgery for MRSA infection, R rotator cuff repair, low back surgery (cemented), bilateral hip surgery for tendon/muscle repairs/screws in place. Cervical fusion Past Anesthesia/Blood Transfusion Reactions: No Reported Reaction, Family History of Problems w/ Anesthesia Additional Past Anesthesia/Blood Transfusion Reaction / Comment(s): MOTHER= A- FIB WITH ANESTHESIA. Past Psychological History: Anxiety, Bipolar, Depression Smoking Status: Current every day smoker Past Alcohol Use History: None Reported Past Drug Use History: None Reported - Past Family History Father Family Medical History: Eye Disorder, Hypertension Additional Family Medical History / Comment(s): Father committed suicide at the age of 58yrs. He had glaucoma Brother(s) Family Medical History: No Reported History Additional Family Medical History / Comment(s): She has one brother that is a recovered alcoholic with no other major medical problems. Sister(s) Additional Family Medical History / Comment(s): Patient has one sister that suffers from depression and anxiety Mother Family Medical History: Cancer, Dementia, Diabetes Mellitus, Deep Vein Thrombosis (DVT), Eye Disorder, Hypertension, Pulmonary Embolus Additional Family Medical History / Comment(s): Corneal transplant, breast cancer General Exam - General Exam Comments Initial Comments: Physical Exam GENERAL: Patient is well-developed and well-nourished. Appears uncomfortable HENT: Normocephalic, Atraumatic. Decreased range of motion of cervical spine secondary to muscle spasm EYES: PERRL, EOMI PULMONARY: Unlabored respirations. CARDIOVASCULAR: RRR Warm and well perfused extremities ABDOMEN: Non-distended SKIN: No rashes or bruising Well-healed anterior neck incision from previous cervical spine surgery : Deferred NEUROLOGIC: Alert and oriented Normal speech Normal gait MUSCULOSKELETAL: Bilateral paraspinal cervical muscle hypertonicity, bilateral trapezius hypertonicity with tenderness to palpation PSYCHIATRIC: No SI/HI Limitations: no limitations Course Vital Signs 07/03/20 23:04 Temperature 97.7 F Pulse Rate 71 Respiratory 18 Rate Blood Pressure 141/92 O2 Sat by Pulse 99 Oximetry Medical Decision Making - Medical Decision Making The patient was seen and evaluated, history was obtained from the patient History and physical exam are concerning for muscle spasm secondary to patient's noncompliance with postoperative instructions and mild trauma earlier in the week no focal neurologic deficits no indication for imaging at this time no fevers or signs of meningitis or infection Patient be treated symptomatically with pain medications, muscle relaxers Lidoderm patch she will be prescribed Lidoderm patch advised to continue her home medications which include Percocet and Valium and follow up outpatient with her neurosurgeon Disposition Clinical Impression: Chronic neck pain Disposition: HOME SELF-CARE Condition: Stable Additional Instructions: Continue to take home medications, follow up with Dr Francis on Monday Return to the ER for any worsening Is patient prescribed a controlled substance at d/c from ED?: No Referrals: Maeve Berkowitz NPC [Primary Care Provider] - 1-2 days
== END 2020-07-04 | disposition home or self-care (01) ==
LOC: EC 22:45
DX: M54.2 Cervicalgia (principal); G89.29 Other chronic pain; F41.9 Anxiety disorder, unspecified; F31.9 Bipolar disorder, unspecified; G40.909 Epilepsy, unspecified, not intractable, without status epilepticus; J44.9 Chronic obstructive pulmonary disease, unspecified; E78.5 Hyperlipidemia, unspecified; I10 Essential (primary) hypertension; M19.90 Unspecified osteoarthritis, unspecified site; F17.200 Nicotine dependence, unspecified, uncomplicated; Z79.51 Long term (current) use of inhaled steroids; Z79.899 Other long term (current) drug therapy; Z88.0 Allergy status to penicillin; Z88.2 Allergy status to sulfonamides; Z91.012 Allergy to eggs; Z91.040 Latex allergy status; Z91.018 Allergy to other foods; Z86.14 Personal history of Methicillin resistant Staphylococcus aureus infection; Z90.722 Acquired absence of ovaries, bilateral; Z98.1 Arthrodesis status; W22.8XXA Striking against or struck by other objects, initial encounter
CPT/HCPCS: 99283; 96374; 96372 ×2; J2360; J1170; J1885

== ENCOUNTER → 2020-07-16 | Outpatient (CLI) | payer MEDICARE, OTHER | END | disposition home or self-care (01) | LOC: LABWHC1 10:57 | PROVIDERS: ATTEND Family Medicine | DX: Z53.9 Procedure and treatment not carried out, unspecified reason (principal) ==

== ENCOUNTER → 2020-07-17 | Outpatient (CLI) | payer MEDICARE, OTHER ==
--- NOTE | 2020-07-17 12:25 | XR ---
EXAMINATION TYPE: XR hand complete RT DATE OF EXAM: 07/17/2020 COMPARISON: NONE HISTORY: 50-year-old female right and fracture, pain TECHNIQUE: 3 views FINDINGS: There is a tiny punctate density adjacent to the ulnar styloid process that is nonspecific. Otherwise, no acute fracture, subluxation, dislocation. IMPRESSION: Tiny punctate density adjacent to the ulnar styloid process. Unclear if this represents a tiny access ory ossicle, tiny age indeterminate fracture fragment, or punctate loose body. Otherwise, no acute os seous abnormality seen.
== END | disposition home or self-care (01) ==
LOC: RADXRMAIN 12:00
PROVIDERS: ATTEND Nurse Practitioner Adult Health
DX: M89.8X4 Other specified disorders of bone, hand (principal)

== ENCOUNTER 2020-07-21 16:30 | Emergency (ER) | payer MEDICARE, OTHER ==
[2020-07-21 17:15] LABS: Appearance,Urine Cloudy (Clear); Bacteria,Urine Many /hpf; Bilirubin,Urine Negative (Negative); Blood,Urine Negative (Negative); Color,Urine Yellow; Glucose,Urine (UA) Negative (Negative); Hyaline Casts,Urine 3 /lpf (0-2); Ketones,Urine 1+ (Negative); Leukocyte Esterase,Urine Moderate (Negative); Mucus,Urine Many /hpf; Nitrite,Urine Positive (Negative); Protein,Urine 1+ (Negative); RBC,Urine 1 /hpf (0-5); Specific Gravity,Urine 1.033 (1.001-1.035); Squamous Epithelial Cell,Urine 4 /hpf (0-4); WBC,Urine 27 /hpf (0-5)
[2020-07-21 17:31] LABS: Amphetamine Screen,Urine Not Detected (NotDetected); Barbiturate Screen,Urine Not Detected (NotDetected); Benzodiazepines Screen,Urine Detected (NotDetected); Cocaine Screen,Urine Not Detected (NotDetected); Methadone Screen, Urine Not Detected (NotDetected); Opiate Screen,Urine Not Detected (NotDetected); Phencyclidine Screen,Urine Not Detected (NotDetected); Tricyclic Antidepressant,Urine Not Detected (NotDetected); Urn Cannabinoid Scrn Not Detected (NotDetected)
[2020-07-21 17:32] LABS: Oxycodone Screen, Urine Detected (NotDetected)
[2020-07-21] MEDS ORDERED: NITROFURANTOIN MONOHYD/M-CRYST 100 MG CAP PO STA (17:37)
[2020-07-21] MEDS ORDERED: ACETAMINOPHEN TAB 325 MG TAB PO STA (17:39)
--- NOTE | 2020-07-21 17:39 | ED ---
Psych HPI - General Chief Complaint: Psychiatric Symptoms Stated Complaint: Under Water Assistant Order Source: patient, police Mode of arrival: ambulatory - History of Present Illness Initial Comments: 50yo female presenting for cc of medicinal plant picker order evaluation. patient states that she was brought in due to a petition. She states that the person who filled it out was made because she wanted to bring her child back to her home (patient is the LG per police) she states they have been bickering this week. Patient sates that she is not suicidal nor homicidal. Jacquelyn intentional overdose. She states she has pain when she pees and is supposed to medicinal plant picker macrobid from her pharmacy, denies flank pain or known fevers. Denies chills general malaise. Patient denies additional complaints. Patient appears well nontoxic in no acute distress. - Related Data Home Medications Medication Instructions Recorded Confirmed Diazepam [Valium] 10 mg PO TID PRN 08/26/15 07/21/20 estradioL [Estrace] 1 mg PO HS 07/19/16 07/21/20 carBAMazepine [TEGretol XR] 400 mg PO HS 08/22/18 07/21/20 Budesonide-Formot 160-4.5 Mcg 2 puff INHALATION RT-BID 04/09/19 07/21/20 [Symbicort 160-4.5 Mcg Inhaler] Fenofibrate Nanocrystallized 48 mg PO HS 08/29/19 07/21/20 [Fenofibrate] Albuterol Inhaler [Ventolin Hfa 2 puff INHALATION RT-Q4H PRN 07/21/20 07/21/20 Inhaler] Ergocalciferol [Vitamin D2] 50,000 unit PO MO 07/21/20 07/21/20 Fludrocortisone [Florinef] 0.1 mg PO DAILY@1100 07/21/20 07/21/20 Gabapentin 600 mg PO BID 07/21/20 07/21/20 Hydrocortisone [Cortef] 5 mg PO DAILY@1100 07/21/20 07/21/20 Loratadine 10 mg PO DAILY PRN 07/21/20 07/21/20 Nitrofurantoin Monohyd/M-Cryst 100 mg PO BID 07/21/20 07/21/20 [Macrobid] Ondansetron Odt [Zofran Odt] 4 mg PO Q6H PRN 07/21/20 07/21/20 Sennosides [Senna] 8.6 mg PO HS PRN 07/21/20 07/21/20 Ziprasidone [Geodon] 20 mg PO HS 07/21/20 07/21/20 oxyCODONE-APAP 10-325MG [Percocet 1 tab PO Q6H PRN 07/21/20 07/21/20 10-325 mg] Previous Rx's Medication Instructions Recorded Nitrofurantoin Monohyd/M-Cryst 100 mg PO Q12HR 5 Days #10 cap 07/21/20 [Macrobid] Allergies Allergy/AdvReac Type Severity Reaction Status Date / Time Penicillins Allergy Severe Anaphylaxis Verified 07/21/20 17:55 Iodinated Contrast Media Allergy Unknown Rash/Hives Verified 07/21/20 17:55 [Iodinated Contrast Media - IV Dye] egg yolk Allergy Unknown Verified 07/21/20 17:55 mustard Allergy Unknown Verified 07/21/20 17:55 Sulfa (Sulfonamide Allergy Unknown Verified 07/21/20 17:55 Antibiotics) sulfamethoxazole Allergy Rash/Hives Verified 07/21/20 17:55 [From Bactrim] trimethoprim [From Bactrim] Allergy Rash/Hives Verified 07/21/20 17:55 Review of Systems ROS Statement: Those systems with pertinent positive or pertinent negative responses have been documented in the HPI. ROS Other: All systems not noted in ROS Statement are negative. Past Medical History Past Medical History: Cancer, COPD, Fibromyalgia, GERD/Reflux, Hyperlipidemia, Hypertension, Osteoarthritis (OA), Pneumonia, Seizure Disorder, Thyroid Disorder Additional Past Medical History / Comment(s): Hpylori, arthritis in multiple joints, compression fracture L1 with chronic pain, last seizure in 2018 or 2019- pt unsure, hypothyroid, pt states she is an alcoholic and quit drinking 4 days ago, past elevated liver function tests, L breast "lump" being monitored, pt states past week she has had stomach pain after eating and past 2 weeks she has had blurry vision/bed wetting. History of Any Multi-Drug Resistant Organisms: MRSA Date of last positivie culture/infection: NOVEMBER 2012 MDRO Source:: RT ELBOW Past Surgical History: Adenoidectomy, Breast Surgery, Cholecystectomy, Hysterectomy, Orthopedic Surgery, Tonsillectomy, Tubal Ligation Additional Past Surgical History / Comment(s): Bilateral breast implants, bilateral oophorectomy d/t cysts, EGDs, EGD with dilation, susu fundoplication with revision, R elbow surgery for MRSA infection, R rotator cuff repair, low back surgery (cemented), bilateral hip surgery for tendon/muscle repairs/screws in place. Cervical fusion Past Anesthesia/Blood Transfusion Reactions: No Reported Reaction, Family History of Problems w/ Anesthesia Additional Past Anesthesia/Blood Transfusion Reaction / Comment(s): MOTHER= A- FIB WITH ANESTHESIA. Past Psychological History: Anxiety, Bipolar, Depression Smoking Status: Current every day smoker Past Alcohol Use History: None Reported Past Drug Use History: None Reported - Past Family History Father Family Medical History: Eye Disorder, Hypertension Additional Family Medical History / Comment(s): Father committed suicide at the age of 58yrs. He had glaucoma Brother(s) Family Medical History: No Reported History Additional Family Medical History / Comment(s): She has one brother that is a recovered alcoholic with no other major medical problems. Sister(s) Additional Family Medical History / Comment(s): Patient has one sister that suffers from depression and anxiety Mother Family Medical History: Cancer, Dementia, Diabetes Mellitus, Deep Vein Throm bosis (DVT), Eye Disorder, Hypertension, Pulmonary Embolus Additional Family Medical History / Comment(s): Corneal transplant, breast cancer General Exam - General Exam Comments Initial Comments: General: The patient is awake and alert, in no distress, and does not appear acutely ill. Eye: Pupils are equal, round and reactive to light, extra-ocular movements are intact. No nystagmus. There is normal conjunctiva bilaterally. No signs of icterus. Ears, nose, mouth and throat: There are moist mucous membranes and no oral lesions. Neck: The neck is supple, there is no tenderness or JVD. Cardiovascular: There is a regular rate and rhythm. No murmur, rub or gallop is appreciated. Respiratory: Lungs are clear to auscultation, respirations are non-labored, breath sounds are equal. No wheezes, stridor, rales, or rhonchi. Gastrointestinal: Soft, non-distended, non-tender abdomen without masses or organomegaly noted. There is no rebound or guarding present. No CVA tenderness. Musculoskeletal: Normal ROM, no tenderness. Strength 5/5. Sensation intact. Pulses equal bilaterally 2+. Neurological: A&O x 3. CN II-XII intact grossly, There are no obvious motor or sensory deficits. Coordination appears grossly intact. Speech is normal. Skin: Skin is warm and dry and no rashes or lesions are noted. Psychiatric: Cooperative, appropriate mood & affect, normal judgment. Limitations: no limitations Course Vital Signs 07/21/20 07/21/20 16:33 18:43 Temperature 100.5 F H 98.5 F Pulse Rate 65 76 Respiratory 18 14 Rate Blood Pressure 156/100 135/88 O2 Sat by Pulse 98 99 Oximetry Medical Decision Making - Medical Decision Making Pt febrile,. Outpatient diagnosed UTI. Denies flank or back pain. Patient repeat VS WNL. she does not appear toxic. No abdominal pain. Patient denies suicidal or homicidal ideations. Patient evaluated by EPS nurse who spoke with psychiatrist who is agreeable to discharge. Patient prefers discharge. Patient appears nontoxic given 1st dose of macrobid, urine culture pending. pt is to f/u with pcp in 1-2 day. return for persistent fevers, lightheadedness, or back pain. - Lab Data Lab Results 07/21/20 07/21/20 07/21/20 Range/Units 16:47 16:47 16:47 Urine Color Yellow Urine Appearance Cloudy H (Clear) Urine pH 6.0 (5.0-8.0) Ur Specific Ethel 1.033 (1.001-1.035) Urine Protein 1+ H (Negative) Urine Glucose (UA) Negative (Negative) Urine Ketones 1+ H (Negative) Urine Blood Negative (Negative) Urine Nitrite Positive H (Negative) Urine Bilirubin Negative (Negative) Urine Urobilinogen 2.0 (<2.0) mg/dL Ur Leukocyte Esterase Moderate H (Negative) Urine RBC 1 (0-5) /hpf Urine WBC 27 H (0-5) /hpf Ur Squamous Epith Cells 4 (0-4) /hpf Urine Bacteria Many H (None) /hpf Hyaline Casts 3 H (0-2) /lpf Urine Mucus Many H (None) /hpf Urine HCG, Qual Not Detected (Not Detectd) Urine Opiates Screen Not Detected (NotDetected) Ur Oxycodone Screen Detected H (NotDetected) Urine Methadone Screen Not Detected (NotDetected) Ur Propoxyphene Screen Not Detected (NotDetected) Ur Barbiturates Screen Not Detected (NotDetected) U Tricyclic Antidepress Not Detected (NotDetected) Ur Phencyclidine Scrn Not Detected (NotDetected) Ur Amphetamines Screen Not Detected (NotDetected) U Methamphetamines Scrn Not Detected (NotDetected) U Benzodiazepines Scrn Detected H (NotDetected) Urine Cocaine Screen Not Detected (NotDetected) U Marijuana (THC) Screen Not Detected (NotDetected) Disposition Clinical Impression: UTI (urinary tract infection), Encounter for psychological evaluation Disposition: HOME SELF-CARE Condition: Good Instructions (If sedation given, give patient instructions): Urinary Tract Infection in Women (ED) Additional Instructions: Please use medication as discussed. Please follow-up with family doctor in the next 2 days. Please return to emergency room if the symptoms increase or worsen or for any other concerns. Prescriptions: Nitrofurantoin Monohyd/M-Cryst [Macrobid] 100 mg PO Q12HR 5 Days #10 cap Is patient prescribed a controlled substance at d/c from ED?: No Referrals: Maeve Berkowitz NPC [Primary Care Provider] - 1-2 days Time of Disposition: 19:08
[2020-07-21 18:46] VITALS: BP 135/88; PULSE 76; RESP 14; TEMP 98.5
== END 2020-07-21 19:20 | disposition home or self-care (01) ==
LOC: EC 16:30
DX: Z04.6 Encounter for general psychiatric examination, requested by authority (principal); N39.0 Urinary tract infection, site not specified; F41.9 Anxiety disorder, unspecified; F31.9 Bipolar disorder, unspecified; J44.9 Chronic obstructive pulmonary disease, unspecified; M79.7 Fibromyalgia; E78.5 Hyperlipidemia, unspecified; I10 Essential (primary) hypertension; M19.90 Unspecified osteoarthritis, unspecified site; G40.909 Epilepsy, unspecified, not intractable, without status epilepticus; G89.29 Other chronic pain; F17.200 Nicotine dependence, unspecified, uncomplicated; Z79.899 Other long term (current) drug therapy; Z79.51 Long term (current) use of inhaled steroids; Z79.52 Long term (current) use of systemic steroids; Z79.3 Long term (current) use of hormonal contraceptives; Z88.0 Allergy status to penicillin; Z91.041 Radiographic dye allergy status; Z91.012 Allergy to eggs; Z91.018 Allergy to other foods; Z88.2 Allergy status to sulfonamides; Z88.1 Allergy status to other antibiotic agents; Z86.14 Personal history of Methicillin resistant Staphylococcus aureus infection; Z98.890 Other specified postprocedural states
CPT/HCPCS: 80306; 81001; 81025; 82075; 87086; 99284

== ENCOUNTER 2020-08-29 14:23 | Emergency (ER) | payer MEDICARE, OTHER ==
[2020-08-29 14:41] VITALS: BP 159/94; PULSE 75; RESP 18; TEMP 98.4
--- NOTE | 2020-08-29 15:20 | ED ---
General Adult HPI - General Chief complaint: Headache Stated complaint: Headache Time Seen by Provider: 08/29/20 14:50 Source: patient, RN notes reviewed, old records reviewed Mode of arrival: ambulatory Limitations: no limitations - History of Present Illness Initial comments: 50-year-old female presents emergency department today for evaluation for he adache bodyaches fever or chills. She states that she was exposed to covid 19 this weekend. She reports that she has a history of migraines and Benja's disease. She states that she's been treated for migraines at her PCPs office the past few days but states that her injections of Toradol Reglan have not been helping. Patient states that she's been tired. Playing a bodyaches minor cough and runny nose and sinus congestion. - Related Data Home Medications Medication Instructions Recorded Confirmed Diazepam [Valium] 10 mg PO TID PRN 08/26/15 08/29/20 estradioL [Estrace] 1 mg PO HS 07/19/16 08/29/20 carBAMazepine [TEGretol XR] 400 mg PO HS 08/22/18 08/29/20 Budesonide-Formot 160-4.5 Mcg 2 puff INHALATION RT-BID 04/09/19 08/29/20 [Symbicort 160-4.5 Mcg Inhaler] Fenofibrate Nanocrystallized 48 mg PO HS 08/29/19 08/29/20 [Fenofibrate] Albuterol Inhaler [Ventolin Hfa 2 puff INHALATION RT-Q4H PRN 07/21/20 08/29/20 Inhaler] Ergocalciferol [Vitamin D2] 50,000 unit PO MO 07/21/20 08/29/20 Fludrocortisone [Florinef] 0.1 mg PO DAILY@1100 07/21/20 08/29/20 Gabapentin 600 mg PO BID 07/21/20 08/29/20 Hydrocortisone [Cortef] 5 mg PO DAILY@1100 07/21/20 08/29/20 Loratadine 10 mg PO DAILY PRN 07/21/20 08/29/20 Ondansetron Odt [Zofran Odt] 4 mg PO Q6H PRN 07/21/20 08/29/20 Sennosides [Senna] 8.6 mg PO HS PRN 07/21/20 08/29/20 Ziprasidone [Geodon] 20 mg PO HS 07/21/20 08/29/20 oxyCODONE-APAP 10-325MG [Percocet 1 tab PO Q6H PRN 07/21/20 08/29/20 10-325 mg] Albuterol Nebulized [Ventolin 2.5 mg INHALATION RT-QID PRN 08/29/20 08/29/20 Nebulized] Fluticasone Nasal [place] [Flonase 2 spr EA NOSTRIL DAILY 08/29/20 08/29/20 Nasal [place]] Allergies Allergy/AdvReac Type Severity Reaction Status Date / Time Penicillins Allergy Severe Anaphylaxis Verified 08/29/20 14:41 Iodinated Contrast Media Allergy Unknown Rash/Hives Verified 08/29/20 14:41 [Iodinated Contrast Media - IV Dye] egg yolk Allergy Unknown Verified 08/29/20 14:41 mustard Allergy Unknown Verified 08/29/20 14:41 Sulfa (Sulfonamide Allergy Unknown Verified 08/29/20 14:41 Antibiotics) sulfamethoxazole Allergy Rash/Hives Verified 08/29/20 14:41 [From Bactrim] trimethoprim [From Bactrim] Allergy Rash/Hives Verified 08/29/20 14:41 Review of Systems ROS Statement: Those systems with pertinent positive or pertinent negative responses have been documented in the HPI. ROS Other: All systems not noted in ROS Statement are negative. Past Medical History Past Medical History: Cancer, COPD, Fibromyalgia, GERD/Reflux, Hyperlipidemia, Hypertension, Osteoarthritis (OA), Pneumonia, Seizure Disorder, Thyroid Disorder Additional Past Medical History / Comment(s): Hpylori, arthritis in multiple joints, compression fracture L1 with chronic pain, last seizure in 2018 or 2019- pt unsure, hypothyroid, pt states she is an alcoholic and quit drinking 4 days ago, past elevated liver function tests, L breast "lump" being monitored, pt states past week she has had stomach pain after eating and past 2 weeks she has had blurry vision/bed wetting. History of Any Multi-Drug Resistant Organisms: MRSA Date of last positivie culture/infection: NOVEMBER 2012 MDRO Source:: RT ELBOW Past Surgical History: Adenoidectomy, Breast Surgery, Cholecystectomy, Hysterectomy, Orthopedic Surgery, Tonsillectomy, Tubal Ligation Additional Past Surgical History / Comment(s): Bilateral breast implants, bilateral oophorectomy d/t cysts, EGDs, EGD with dilation, susu fundoplication with revision, R elbow surgery for MRSA infection, R rotator cuff repair, low back surgery (cemented), bilateral hip surgery for tendon/muscle repairs/screws in place. Cervical fusion Past Anesthesia/Blood Transfusion Reactions: No Reported Reaction, Family History of Problems w/ Anesthesia Additional Past Anesthesia/Blood Transfusion Reaction / Comment(s): MOTHER= A- FIB WITH ANESTHESIA. Past Psychological History: Anxiety, Bipolar, Depression Smoking Status: Current every day smoker Past Alcohol Use History: None Reported Past Drug Use History: None Reported - Past Family History Father Family Medical History: Eye Disorder, Hypertension Additional Family Medical History / Comment(s): Father committed suicide at the age of 58yrs. He had glaucoma Brother(s) Family Medical History: No Reported History Additional Family Medical History / Comment(s): She has one brother that is a recovered alcoholic with no other major medical problems. Sister(s) Additional Family Medical History / Comment(s): Patient has one sister that suffers from depression and anxiety Mother Family Medical History: Cancer, Dementia, Diabetes Mellitus, Deep Vein Thrombosis (DVT), Eye Disorder, Hypertension, Pulmonary Embolus Additional Family Medical History / Comment(s): Corneal transplant, breast cancer General Exam - General Exam Comments Initial Comments: Well-appearing 50-year-old female. No distress. Limitations: no limitations General appearance: alert, in no apparent distress Head exam: Present: atraumatic, normocephalic, normal inspection Eye exam: Present: normal appearance, PERRL, EOMI. Absent: scleral icterus, conjunctival injection, periorbital swelling ENT exam: Present: normal exam, mucous membranes moist Neck exam: Present: normal inspection. Absent: tenderness, meningismus, lymphadenopathy Respiratory exam: Present: normal lung sounds bilaterally. Absent: respiratory distress, wheezes, rales, rhonchi, stridor Cardiovascular Exam: Present: regular rate, normal rhythm, normal heart sounds. Absent: systolic murmur, diastolic murmur, rubs, gallop, clicks GI/Abdominal exam: Present: soft, normal bowel sounds. Absent: distended, tenderness, guarding, rebound, rigid Extremities exam: Present: normal inspection, full ROM, normal capillary refill. 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 She is concerned for cocaine. 19 infection. At this time her rapid coronavirus test is negative but discussed that this could still be positive and she was tested to early. Patient was given IV fluids migraine cocktail does report improvement in symptoms. She has no neurological deficits. I discussed Patient needs to follow-up with primary care doctor and discussed return parameters. Discussed self quarantine and return parameters due to concern for suspected covid 19 infection. - Lab Data Result diagrams: 08/29/20 15:37 08/29/20 15:37 Lab Results 08/29/20 08/29/20 08/29/20 Range/Units 15:37 15:37 15:37 WBC 4.9 (3.8-10.6) k/uL RBC 4.40 (3.80-5.40) m/uL Hgb 14.8 (11.4-16.0) gm/dL Hct 45.9 (34.0-46.0) % MCV 104.4 H D (80.0-100.0) fL MCH 33.7 (25.0-35.0) pg MCHC 32.3 (31.0-37.0) g/dL RDW 12.6 (11.5-15.5) % Plt Count 223 (150-450) k/uL MPV 7.5 Neutrophils % 59 % Lymphocytes % 32 % Monocytes % 4 % Eosinophils % 3 % Basophils % 1 % Neutrophils # 2.9 (1.3-7.7) k/uL Lymphocytes # 1.5 (1.0-4.8) k/uL Monocytes # 0.2 (0-1.0) k/uL Eosinophils # 0.1 (0-0.7) k/uL Basophils # 0.0 (0-0.2) k/uL Macrocytosis Slight Sodium 141 (137-145) mmol/L Potassium 3.7 (3.5-5.1) mmol/L Chloride 109 H (98-107) mmol/L Carbon Dioxide 27 (22-30) mmol/L Anion Gap 5 mmol/L BUN 9 (7-17) mg/dL Creatinine 0.84 (0.52-1.04) mg/dL Est GFR (CKD-EPI)AfAm >90 (>60 ml/min/1.73 sqM) Est GFR (CKD-EPI)NonAf 82 (>60 ml/min/1.73 sqM) Glucose 99 (74-99) mg/dL Plasma Lactic Acid Matthew 0.9 (0.7-2.0) mmol/L Calcium 9.7 (8.4-10.2) mg/dL Magnesium 1.8 (1.6-2.3) mg/dL Total Bilirubin 0.4 (0.2-1.3) mg/dL AST 69 H (14-36) U/L ALT 73 H (4-34) U/L Alkaline Phosphatase 72 (38-126) U/L Lactate Dehydrogenase 470 (313-618) U/L C-Reactive Protein 8.7 (<10.0) mg/L Total Protein 7.2 (6.3-8.2) g/dL Albumin 4.4 (3.5-5.0) g/dL Coronavirus (PCR) (Not Detectd) 08/29/20 Range/Units 15:37 WBC (3.8-10.6) k/uL RBC (3.80-5.40) m/uL Hgb (11.4-16.0) gm/dL Hct (34.0-46.0) % MCV (80.0-100.0) fL MCH (25.0-35.0) pg MCHC (31.0-37.0) g/dL RDW (11.5-15.5) % Plt Count (150-450) k/uL MPV Neutrophils % % Lymphocytes % % Monocytes % % Eosinophils % % Basophils % % Neutrophils # (1.3-7.7) k/uL Lymphocytes # (1.0-4.8) k/uL Monocytes # (0-1.0) k/uL Eosinophils # (0-0.7) k/uL Basophils # (0-0.2) k/uL Macrocytosis Sodium (137-145) mmol/L Potassium (3.5-5.1) mmol/L Chloride (98-107) mmol/L Carbon Dioxide (22-30) mmol/L Anion Gap mmol/L BUN (7-17) mg/dL Creatinine (0.52-1.04) mg/dL Est GFR (CKD-EPI)AfAm (>60 ml/min/1.73 sqM) Est GFR (CKD-EPI)NonAf (>60 ml/min/1.73 sqM) Glucose (74-99) mg/dL Plasma Lactic Acid Matthew (0.7-2.0) mmol/L Calcium (8.4-10.2) mg/dL Magnesium (1.6-2.3) mg/dL Total Bilirubin (0.2-1.3) mg/dL AST (14-36) U/L ALT (4-34) U/L Alkaline Phosphatase (38-126) U/L Lactate Dehydrogenase (313-618) U/L C-Reactive Protein (<10.0) mg/L Total Protein (6.3-8.2) g/dL Albumin (3.5-5.0) g/dL Coronavirus (PCR) Not Detected (Not Detectd) - Radiology Data Radiology results: report reviewed Chest x-rays reviewed and negative for acute process Disposition Clinical Impression: Migraine, Suspected COVID-19 virus infection Disposition: HOME SELF-CARE Condition: Good Instructions (If sedation given, give patient instructions): Migraine Headache (ED) Additional Instructions: Patient should rest. Take at home medication. Return to the ED if any alarming signs or symptoms occur. Return to the ED if any alarming signs or symptoms occur. Is patient prescribed a controlled substance at d/c from ED?: No Referrals: Maeve Berkowitz NPC [Family Provider] - 1-2 days Time of Disposition: 17:32
[2020-08-29 15:49] LABS: Basophils % (A) 1 %; Eosinophils # (A) 0.1 k/uL (0-0.7); Eosinophils % (A) 3 %; HCT 45.9 % (34.0-46.0); HGB 14.8 gm/dL (11.4-16.0); Lymphocytes # (A) 1.5 k/uL (1.0-4.8); Lymphocytes % (A) 32 %; MCH 33.7 pg (25.0-35.0); MCHC 32.3 g/dL (31.0-37.0); Macrocytosis Slight; Mean Platelet Volume 7.5; Monocytes # (A) 0.2 k/uL (0-1.0); Monocytes % (A) 4 %; Neutrophils # (A) 2.9 k/uL (1.3-7.7); Neutrophils % (A) 59 %; Platelet Count 223 k/uL (150-450); RDW 12.6 % (11.5-15.5); WBC 4.9 k/uL (3.8-10.6)
--- NOTE | 2020-08-29 15:53 | XR ---
EXAMINATION TYPE: XR chest 1V portable DATE OF EXAM: 08/29/2020 COMPARISON: 05/03/2020 HISTORY: Headache. TECHNIQUE: FINDINGS: Heart and mediastinum are normal. Lungs are clear. Diaphragm is normal. Bony thorax appears normal. IMPRESSION: Normal chest. No adverse change.
[2020-08-29 16:00] LABS: MCV 104.4 fL (80.0-100.0)
[2020-08-29] MEDS ORDERED: METOCLOPRAMIDE 5 MG/ML 2 ML VIAL IVP STA (16:05)
[2020-08-29] MEDS ORDERED: ORPHENADRINE 30 MG/ML 2 ML VIAL IVP STA (16:05)
[2020-08-29] MEDS ORDERED: diphenhydrAMINE 50 MG/ML 1 ML VIAL IVP STA (16:05)
[2020-08-29] MEDS ORDERED: KETOROLAC 15 MG/ML 1 ML VIAL IVP STA (16:05)
[2020-08-29] MEDS ORDERED: SODIUM CHLORIDE 0.9% 1,000 ML IV ONE (16:05)
[2020-08-29 16:10] LABS: ALT 73 U/L (4-34); AST 69 U/L (14-36); African American GFR (CKD) >90 (>60 ml/min/1.73 sqM); Albumin 4.4 g/dL (3.5-5.0); Alkaline Phosphatase 72 U/L (38-126); Anion Gap 5 mmol/L; Blood Urea Nitrogen 9 mg/dL (7-17); C Reactive Protein 8.7 mg/L (<10.0); Calcium 9.7 mg/dL (8.4-10.2); Carbon Dioxide 27 mmol/L (22-30); Chloride 109 mmol/L (98-107); Glucose 99 mg/dL (74-99); LDH 470 U/L (313-618); Magnesium 1.8 mg/dL (1.6-2.3); Non-African American GFR(CKD) 82 (>60 ml/min/1.73 sqM); Potassium 3.7 mmol/L (3.5-5.1); Sodium 141 mmol/L (137-145); Total Bilirubin 0.4 mg/dL (0.2-1.3); Total Protein 7.2 g/dL (6.3-8.2)
[2020-08-29 23:45] LABS: Ferritin 149.2 ng/mL (10.0-291.0)
== END 2020-08-29 18:00 | disposition home or self-care (01) ==
LOC: EC 14:23
DX: G43.909 Migraine, unspecified, not intractable, without status migrainosus (principal); Z20.828 Contact with and (suspected) exposure to other viral communicable diseases; J44.9 Chronic obstructive pulmonary disease, unspecified; I10 Essential (primary) hypertension; E78.5 Hyperlipidemia, unspecified; G40.909 Epilepsy, unspecified, not intractable, without status epilepticus; E03.9 Hypothyroidism, unspecified; F41.9 Anxiety disorder, unspecified; F31.9 Bipolar disorder, unspecified; F17.200 Nicotine dependence, unspecified, uncomplicated; Z79.51 Long term (current) use of inhaled steroids; Z79.899 Other long term (current) drug therapy; Z88.0 Allergy status to penicillin; Z91.041 Radiographic dye allergy status; Z91.018 Allergy to other foods; Z88.2 Allergy status to sulfonamides; Z88.1 Allergy status to other antibiotic agents
CPT/HCPCS: 36415; 80053; 82728; 83605; 83615; 83735; 85025; 86140; 84145; 87635; 71045; 99284; 96374; 96375 ×3; 96361; J1200; J2360; J2765; J1885

== ENCOUNTER → 2020-08-31 | Outpatient (CLI) | payer MEDICARE, OTHER | END | disposition home or self-care (01) | LOC: LABWHC1 10:56 | PROVIDERS: ATTEND Nurse Practitioner Adult Health | DX: G43.909 Migraine, unspecified, not intractable, without status migrainosus (principal); J06.9 Acute upper respiratory infection, unspecified | CPT/HCPCS: U0003; C9803 ==

== ENCOUNTER → 2020-09-10 | Outpatient (CLI) | payer MEDICARE, OTHER ==
--- NOTE | 2020-09-10 13:43 | XR ---
EXAMINATION TYPE: XR lumbar spine 2 or 3V DATE OF EXAM: 09/10/2020 CLINICAL HISTORY: Back pain. TECHNIQUE: Frontal and lateral images of the lumbar spine are obtained. COMPARISON: CT lumbar spine October 03, 2019 FINDINGS: There are 5 lumbar type vertebral bodies redemonstrated. Stable mild height loss with vert ebroplasty L1 level. Protruded cement into small adjacent vessels is redemonstrated. Alignment stable and straightened. Disc space heights maintained. Mild facet arthropathy lower lumbar levels. Mild mu ltilevel anterior and lateral spurring redemonstrated. Osseous structures somewhat demineralized. IMPRESSION: As above.
--- NOTE | 2020-09-10 13:46 | XR ---
EXAMINATION TYPE: XR cervical spine comp DATE OF EXAM: 09/10/2020 TECHNIQUE: Frontal, lateral, oblique, and open mouth view of the cervical spine are obtained. HISTORY: M54.2 cervicalgia M54.5 back pain COMPARISON: Cervical spine x-ray May 10, 2020. CT neck May 13, 2020 FINDINGS: The cervical spine is visualized in its entirety from C1 thru the bottom of T1 level. Pers istent anterior fusion plate running from inferior C4 through the mid C7 vertebra. Persistent artific ial disc material C6-C7 level. Persistent resected C5 vertebra with metallic cage from inferior C4 to the superior C6 vertebra. Stable grade 1 retrolisthesis C4 on C5. No new prevertebral soft tissue sw elling. C1-C2 articulation remains satisfactory on the open mouth frontal view. Vertebral body height s and disc space heights maintained above C4 level. Oblique images within normal limits. Overlying so ft tissue is unremarkable. IMPRESSION: As above.
--- NOTE | 2020-09-10 13:48 | XR ---
EXAMINATION TYPE: XR thoracic spine complete DATE OF EXAM: 09/10/2020 CLINICAL HISTORY: Mid back pain. TECHNIQUE: Frontal, lateral, and swimmer's view of thoracic spine are obtained. COMPARISON: Thoracic spine x-ray May 04, 2016.. FINDINGS: Thoracic spine redemonstrates dextroconvex scoliosis centered mid thoracic spine. Osseous s tructures are demineralized with straightened alignment on lateral images. Vertebroplasty at L1 level noted. Vertebral body heights and disc space heights otherwise maintained. Mild anterior and lateral spurring lower thoracic spine. Surgical sutures epigastric region noted. IMPRESSION: As above.
== END | disposition home or self-care (01) ==
LOC: RADXRMAIN 12:50
PROVIDERS: ATTEND Nurse Practitioner Adult Health
DX: M47.816 Spondylosis without myelopathy or radiculopathy, lumbar region (principal); M54.5 Low back pain
CPT/HCPCS: 72050; 72072; 72100

== ENCOUNTER → 2020-10-02 | Outpatient (CLI) | payer MEDICARE, OTHER ==
--- NOTE | 2020-10-03 04:10 | MR ---
EXAMINATION TYPE: MR cspine/lspine wo/w con DATE OF EXAM: 10/02/2020 COMPARISON: None HISTORY: Neck and low back pain. CONTRAST: Standard multiplanar, multisequence MRI departmental protocol utilizing 7 mL intravenous Gadavist magda olinium contrast. The cervical vertebra have normal alignment. There is metal artifact from anterior fusion surgery fro m C4 to C7. The cervical spinal cord appears to show normal signal pattern. The canal is difficult to evaluate because of metal artifact at the C5-6 level. Spinal canal appears to measure 8 mm at the na rrowest point. The brainstem appears intact. The facet joints are intact. There is no evidence of cer vical paraspinal mass. There is posterior spurring at C5-6 endplate. The lumbar vertebra have normal alignment. There is anterior wedging of L1 vertebra with 20% loss of height and depression of the superior endplate. There is decreased signal in the vertebral body relat ed to vertebroplasty. Compression deformity is stable compared to old exam of 09/10/2020. There is no evidence of lumbar spinal stenosis. There is no lumbar disc herniation. Facet joints are intact. The lumbar neural foramina are fairly well-maintained. There is no evidence of lumbar paraspi nal mass. The visualized sacroiliac joints appear intact. Contrast images show no pathologic enhancement in the cervical spine or in the lumbar spine. I see no bony destructive process. IMPRESSION: Old mild L1 compression fracture with vertebroplasty. No acute fracture seen. No spinal stenosis or a ny significant lumbar disc herniation. Multilevel fusion surgery in the cervical spine. No fracture. No evidence of any significant cervical spinal stenosis.
== END | disposition home or self-care (01) ==
LOC: RADMRIMAIN 16:58
PROVIDERS: ATTEND Nurse Practitioner Adult Health
DX: Z87.81 Personal history of (healed) traumatic fracture (principal); Z98.1 Arthrodesis status; M54.2 Cervicalgia
CPT/HCPCS: 72156; 72158; A9585

== ENCOUNTER 2020-10-26 13:48 | Observation (INO) | payer MEDICARE, OTHER ==
[2020-10-26] MEDS ORDERED: ASPIRIN 81 MG PO STA (13:59)
[2020-10-26] MEDS ORDERED: NITROGLYCERIN OINT 1 INCH/GM PACKET TOPICAL STA (13:59)
--- NOTE | 2020-10-26 14:07 | ED ---
General Adult HPI - General Chief complaint: Chest Pain Stated complaint: Chest Pain Time Seen by Provider: 10/26/20 13:50 Source: patient, RN notes reviewed, old records reviewed Mode of arrival: ambulatory Limitations: no limitations - History of Present Illness Initial comments: This is a 50-year-old female with a past medical history significant for chronic pain and anxiety. Patient also has a history of seizures. Patient states she normally has low blood pressure so her nurse practitioner started her on Cortef. Patient states she had a significant headache today has been having intermittent chest pain since the weekend so she decided to her blood pressure was over 250 went to her doctor's office they called the ambulance and had her sent in. Patient states she still has a headache and still has chest pressure. Patient denies any difficulty breathing shortness of breath. Patient denies radiation of pain. Patient denies abdominal pain patient denies nausea vomiting diarrhea. Patient denies any recent fever chills or cough per patient denies any leg swelling or calf tenderness - Related Data Home Medications Medication Instructions Recorded Confirmed Diazepam [Valium] 10 mg PO TID PRN 08/26/15 08/29/20 estradioL [Estrace] 1 mg PO HS 07/19/16 08/29/20 carBAMazepine [TEGretol XR] 400 mg PO HS 08/22/18 08/29/20 Budesonide-Formot 160-4.5 Mcg 2 puff INHALATION RT-BID 04/09/19 08/29/20 [Symbicort 160-4.5 Mcg Inhaler] Fenofibrate Nanocrystallized 48 mg PO HS 08/29/19 08/29/20 [Fenofibrate] Albuterol Inhaler [Ventolin Hfa 2 puff INHALATION RT-Q4H PRN 07/21/20 08/29/20 Inhaler] Ergocalciferol [Vitamin D2] 50,000 unit PO MO 07/21/20 08/29/20 Fludrocortisone [Florinef] 0.1 mg PO DAILY@1100 07/21/20 08/29/20 Gabapentin 600 mg PO BID 07/21/20 08/29/20 Hydrocortisone [Cortef] 5 mg PO DAILY@1100 07/21/20 08/29/20 Loratadine 10 mg PO DAILY PRN 07/21/20 08/29/20 Ondansetron Odt [Zofran Odt] 4 mg PO Q6H PRN 07/21/20 08/29/20 Sennosides [Senna] 8.6 mg PO HS PRN 07/21/20 08/29/20 Ziprasidone [Geodon] 20 mg PO HS 07/21/20 08/29/20 oxyCODONE-APAP 10-325MG [Percocet 1 tab PO Q6H PRN 07/21/20 08/29/20 10-325 mg] Albuterol Nebulized [Ventolin 2.5 mg INHALATION RT-QID PRN 08/29/20 08/29/20 Nebulized] Fluticasone Nasal [place] [Flonase 2 spr EA NOSTRIL DAILY 08/29/20 08/29/20 Nasal [place]] Allergies Allergy/AdvReac Type Severity Reaction Status Date / Time Penicillins Allergy Severe Anaphylaxis Verified 10/26/20 13:59 Iodinated Contrast Media Allergy Unknown Rash/Hives Verified 10/26/20 13:59 [Iodinated Contrast Media - IV Dye] egg yolk Allergy Unknown Verified 10/26/20 13:59 mustard Allergy Unknown Verified 10/26/20 13:59 Sulfa (Sulfonamide Allergy Unknown Verified 10/26/20 13:59 Antibiotics) sulfamethoxazole Allergy Rash/Hives Verified 10/26/20 13:59 [From Bactrim] trimethoprim [From Bactrim] Allergy Rash/Hives Verified 10/26/20 13:59 Review of Systems ROS Statement: Those systems with pertinent positive or pertinent negative responses have been documented in the HPI. ROS Other: All systems not noted in ROS Statement are negative. Past Medical History Past Medical History: Cancer, COPD, Fibromyalgia, GERD/Reflux, Hyperlipidemia, Hypertension, Osteoarthritis (OA), Pneumonia, Seizure Disorder, Thyroid Disorder Additional Past Medical History / Comment(s): Hpylori, arthritis in multiple joints, compression fracture L1 with chronic pain, last seizure in 2018 or 2019- pt unsure, hypothyroid, pt states she is an alcoholic and quit drinking 4 days ago, past elevated liver function tests, L breast "lump" being monitored, pt states past week she has had stomach pain after eating and past 2 weeks she has had blurry vision/bed wetting. History of Any Multi-Drug Resistant Organisms: MRSA Date of last positivie culture/infection: NOVEMBER 2012 MDRO Source:: RT ELBOW Past Surgical History: Adenoidectomy, Breast Surgery, Cholecystectomy, Hysterectomy, Orthopedic Surgery, Tonsillectomy, Tubal Ligation Additional Past Surgical History / Comment(s): Bilateral breast implants, bilateral oophorectomy d/t cysts, EGDs, EGD with dilation, susu fundoplication with revision, R elbow surgery for MRSA infection, R rotator cuff repair, low back surgery (cemented), bilateral hip surgery for tendon/muscle repairs/screws in place. Cervical fusion Past Anesthesia/Blood Transfusion Reactions: No Reported Reaction, Family History of Problems w/ Anesthesia Additional Past Anesthesia/Blood Transfusion Reaction / Comment(s): MOTHER= A- FIB WITH ANESTHESIA. Past Psychological History: Anxiety, Bipolar, Depression Smoking Status: Current every day smoker Past Alcohol Use History: None Reported Past Drug Use History: None Reported - Past Family History Father Family Medical History: Eye Disorder, Hypertension Additional Family Medical History / Comment(s): Father committed suicide at the age of 58yrs. He had glaucoma Brother(s) Family Medical History: No Reported History Additional Family Medical History / Comment(s): She has one brother that is a recovered alcoholic with no other major medical problems. Sister(s) Additional Family Medical History / Comment(s): Patient has one sister that suffers from depression and anxiety Mother Family Medical History: Cancer, Dementia, Diabetes Mellitus, Deep Vein Thrombosis (DVT), Eye Disorder, Hypertension, Pulmonary Embolus Additional Family Medical History / Comment(s): Corneal transplant, breast cancer General Exam - General Exam Comments Initial Comments: GENERAL: Patient is well-developed and well-nourished. Patient is nontoxic and well- hydrated and is in mild distress. ENT: Neck is soft and supple. No significant lymphadenopathy is noted. Oropharynx is clear. Moist mucous membranes. Neck has full range of motion without eliciting any pain. EYES: The sclera were anicteric and conjunctiva were pink and moist. Extraocular movements were intact and pupils were equal round and reactive to light. Eyelids were unremarkable. PULMONARY: Unlabored respirations. Good breath sounds bilaterally. No audible rales rhonchi or wheezing was noted. CARDIOVASCULAR: There is a regular rate and rhythm without any murmurs gallops or rubs. ABDOMEN: Soft and nontender with normal bowel sounds. SKIN: Skin is clear with no lesions or rashes and otherwise unremarkable. NEUROLOGIC: Patient is alert and oriented x3. Cranial nerves II through XII are grossly intact. Motor and sensory are also intact. Normal speech, volume and content. Symmetrical smile. MUSCULOSKELETAL: Normal extremities with adequate strength and full range of motion. No lower extremity swelling or edema. No calf tenderness. LYMPHATICS: No significant lymphadenopathy is noted PSYCHIATRIC: Normal psychiatric evaluation. Limitations: no limitations Course Vital Signs 10/26/20 10/26/20 13:55 14:49 Temperature 98.4 F Pulse Rate 90 71 Respiratory 20 20 Rate Blood Pressure 172/108 135/93 O2 Sat by Pulse 98 97 Oximetry Medical Decision Making - Medical Decision Making A she states her blood pressure was consistently over 200 at home at the doctor's office and in the ambulance. EKG shows normal sinus rhythm at 77 bpm MD interval 218 QRS is 78 QT interval is 418 QTC is 473. Patient's EKG shows no ST segment elevation or depression. CT of the brain shows no acute abnormality. Chest x-ray shows no acute abnormality. Patient's blood pressure came down to a systolic blood pressure once 135/78. - Lab Data Result diagrams: 10/26/20 14:04 10/26/20 14:04 Lab Results 10/26/20 10/26/20 10/26/20 Range/Units 14:04 14:04 14:04 WBC 7.3 (3.8-10.6) k/uL RBC 4.10 (3.80-5.40) m/uL Hgb 14.3 (11.4-16.0) gm/dL Hct 43.5 (34.0-46.0) % MCV 105.9 H (80.0-100.0) fL MCH 34.9 (25.0-35.0) pg MCHC 32.9 (31.0-37.0) g/dL RDW 14.0 (11.5-15.5) % Plt Count 184 (150-450) k/uL MPV 7.5 Neutrophils % 76 % Lymphocytes % 17 % Monocytes % 4 % Eosinophils % 2 % Basophils % 1 % Neutrophils # 5.5 (1.3-7.7) k/uL Lymphocytes # 1.2 (1.0-4.8) k/uL Monocytes # 0.3 (0-1.0) k/uL Eosinophils # 0.1 (0-0.7) k/uL Basophils # 0.0 (0-0.2) k/uL Macrocytosis Moderate PT 10.1 (9.0-12.0) sec INR 0.9 (<1.2) APTT 22.4 (22.0-30.0) sec Sodium 137 (137-145) mmol/L Potassium 3.1 L (3.5-5.1) mmol/L Chloride 103 (98-107) mmol/L Carbon Dioxide 23 (22-30) mmol/L Anion Gap 11 mmol/L BUN 10 (7-17) mg/dL Creatinine 0.64 (0.52-1.04) mg/dL Est GFR (CKD-EPI)AfAm >90 (>60 ml/min/1.73 sqM) Est GFR (CKD-EPI)NonAf >90 (>60 ml/min/1.73 sqM) Glucose 91 (74-99) mg/dL Calcium 8.8 (8.4-10.2) mg/dL Magnesium 1.7 (1.6-2.3) mg/dL Total Bilirubin 0.7 (0.2-1.3) mg/dL AST 44 H (14-36) U/L ALT 33 (4-34) U/L Alkaline Phosphatase 102 (38-126) U/L Troponin I (0.000-0.034) ng/mL Total Protein 6.7 (6.3-8.2) g/dL Albumin 4.1 (3.5-5.0) g/dL 10/26/20 Range/Units 14:04 WBC (3.8-10.6) k/uL RBC (3.80-5.40) m/uL Hgb (11.4-16.0) gm/dL Hct (34.0-46.0) % MCV (80.0-100.0) fL MCH (25.0-35.0) pg MCHC (31.0-37.0) g/dL RDW (11.5-15.5) % Plt Count (150-450) k/uL MPV Neutrophils % % Lymphocytes % % Monocytes % % Eosinophils % % Basophils % % Neutrophils # (1.3-7.7) k/uL Lymphocytes # (1.0-4.8) k/uL Monocytes # (0-1.0) k/uL Eosinophils # (0-0.7) k/uL Basophils # (0-0.2) k/uL Macrocytosis PT (9.0-12.0) sec INR (<1.2) APTT (22.0-30.0) sec Sodium (137-145) mmol/L Potassium (3.5-5.1) mmol/L Chloride (98-107) mmol/L Carbon Dioxide (22-30) mmol/L Anion Gap mmol/L BUN (7-17) mg/dL Creatinine (0.52-1.04) mg/dL Est GFR (CKD-EPI)AfAm (>60 ml/min/1.73 sqM) Est GFR (CKD-EPI)NonAf (>60 ml/min/1.73 sqM) Glucose (74-99) mg/dL Calcium (8.4-10.2) mg/dL Magnesium (1.6-2.3) mg/dL Total Bilirubin (0.2-1.3) mg/dL AST (14-36) U/L ALT (4-34) U/L Alkaline Phosphatase (38-126) U/L Troponin I <0.012 (0.000-0.034) ng/mL Total Protein (6.3-8.2) g/dL Albumin (3.5-5.0) g/dL Disposition Clinical Impression: Hypertensive urgency, Chest pain, Headache Disposition: ADMITTED IP TO THIS HOSP Referrals: Maeve Berkowitz NPC [Primary Care Provider] - 1-2 days Time of Disposition: 14:53
[2020-10-26 14:10] LABS: Basophils % (A) 1 %; Eosinophils # (A) 0.1 k/uL (0-0.7); Eosinophils % (A) 2 %; HCT 43.5 % (34.0-46.0); HGB 14.3 gm/dL (11.4-16.0); Lymphocytes # (A) 1.2 k/uL (1.0-4.8); Lymphocytes % (A) 17 %; MCH 34.9 pg (25.0-35.0); MCHC 32.9 g/dL (31.0-37.0); MCV 105.9 fL (80.0-100.0); Macrocytosis Moderate; Mean Platelet Volume 7.5; Monocytes # (A) 0.3 k/uL (0-1.0); Monocytes % (A) 4 %; Neutrophils # (A) 5.5 k/uL (1.3-7.7); Neutrophils % (A) 76 %; Platelet Count 184 k/uL (150-450); WBC 7.3 k/uL (3.8-10.6)
[2020-10-26 14:20] LABS: ALT 33 U/L (4-34); AST 44 U/L (14-36); African American GFR (CKD) >90 (>60 ml/min/1.73 sqM); Albumin 4.1 g/dL (3.5-5.0); Alkaline Phosphatase 102 U/L (38-126); Anion Gap 11 mmol/L; Blood Urea Nitrogen 10 mg/dL (7-17); Calcium 8.8 mg/dL (8.4-10.2); Carbon Dioxide 23 mmol/L (22-30); Chloride 103 mmol/L (98-107); Glucose 91 mg/dL (74-99); Magnesium 1.7 mg/dL (1.6-2.3); Non-African American GFR(CKD) >90 (>60 ml/min/1.73 sqM); Potassium 3.1 mmol/L (3.5-5.1); Sodium 137 mmol/L (137-145); Total Bilirubin 0.7 mg/dL (0.2-1.3); Total Protein 6.7 g/dL (6.3-8.2)
[2020-10-26 14:21] LABS: INR 0.9 (<1.2); Partial Thromboplastin Time 22.4 sec (22.0-30.0); Prothrombin Time 10.1 sec (9.0-12.0)
--- NOTE | 2020-10-26 14:36 | XR ---
EXAMINATION TYPE: XR chest 2V DATE OF EXAM: 10/26/2020 COMPARISON: 08/29/2020 HISTORY: Chest pain TECHNIQUE: Frontal and lateral views of the chest are obtained. FINDINGS: There is no focal air space opacity. No evidence for pneumothorax. No pleural effusion. The cardiac silhouette size is within normal limits. The osseous structures are grossly intact. IMPRESSION: 1. No acute cardiopulmonary process.
--- NOTE | 2020-10-26 14:40 | CT ---
EXAMINATION TYPE: CT brain wo con DATE OF EXAM: 10/26/2020 COMPARISON: 01/18/2020 HISTORY: Headache, elevated blood pressure CT DLP: 1076.[address] of the brain was performed. The ventricles, basal cisterns and sulci overlying the cerebral convexities demonstrate a normal appe arance. There is no evidence for intracranial hemorrhage or sulcal effacement. No mass effects are seen. Osseous calvarium is intact. If symptoms persist consider MRI as clinically warranted. IMPRESSION: 1. No acute intracranial process is seen at this time.
[2020-10-26] MEDS ORDERED: ACETAMINOPHEN TAB 500 MG TAB PO STA (14:49)
[2020-10-26] MEDS ORDERED: NITROGLYCERIN SL TABS 0.4 MG TAB SUBLINGUAL PRN (14:54)
[2020-10-26] MEDS ORDERED: SENNOSIDES 8.6 MG TAB PO PRN (16:20)
[2020-10-26] MEDS ORDERED: GABAPENTIN 300 MG CAP PO PRN (16:20)
[2020-10-26] MEDS ORDERED: diazePAM 5 MG TAB PO PRN (16:20)
[2020-10-26] MEDS ORDERED: ALBUTEROL NEBULIZED 2.5 MG/3 ML INHALATION PRN (16:20)
[2020-10-26] MEDS ORDERED: ONDANSETRON 4 MG/2 ML VIAL IVP PRN (16:22)
[2020-10-26] MEDS ORDERED: hydrALAZINE HCL 20 MG/ML 1 ML VIAL IVP PRN (16:25)
--- NOTE | 2020-10-26 16:28 | P.HPIM ---
History of Present Illness H&P Date: 10/26/20 Chief Complaint: Elevated blood pressure This is a 50-year-old female with complex past medical history noted below who presented to the emergency room sent from her primary care physician's office for hypertensive emergency. Patient said that she was not feeling well today and was complaining of severe headache and chest discomfort at home that she measured her blood pressure and he was found to be greater than 200/100. She lives next door to her PCP office and walked in today to check her blood pressure and make sure her cuff is accurate and the reading was higher. She was sent by her PCP to the emergency room. Patient said that she was having is a fear headache since yesterday with no reported nausea or vomiting. She was also experiencing chest heaviness today. She was evaluated in the ER and was given a dose of clonidine and was started on Nitropaste. Her blood pressure is significantly better now. Patient informed me that she uses take lisinopril in the past but over the past year this was discontinued by her PCP. Also her PCP diagnosed her with adrenal insufficiency and started her on Florinef and Cortef. Patient said that her blood pressure is chronically elevated and is usually around 160/100. She told me that she discuss that with her PCP on many occasion and her doctor told her that would be normal for her. She reports taking her other medications as prescribed. She denies any prior cardiac history. She continues to smoke 8 cig arettes per day. Review of Systems Review of system: 14 points review of systems were obtained and were negative except to what were mentioned in the HPI. Past Medical History Past Medical History: Cancer, COPD, Fibromyalgia, GERD/Reflux, Hyperlipidemia, Hypertension, Osteoarthritis (OA), Pneumonia, Seizure Disorder, Thyroid Disorder Additional Past Medical History / Comment(s): Hpylori, arthritis in multiple joints, compression fracture L1 with chronic pain, last seizure in 2018 or 2019- pt unsure, hypothyroid, pt states she is an alcoholic and quit drinking 4 days ago, past elevated liver function tests, L breast "lump" being monitored, pt states past week she has had stomach pain after eating and past 2 weeks she has had blurry vision/bed wetting. History of Any Multi-Drug Resistant Organisms: MRSA Date of last positivie culture/infection: NOVEMBER 2012 MDRO Source:: RT ELBOW Past Surgical History: Adenoidectomy, Breast Surgery, Cholecystectomy, Hysterectomy, Orthopedic Surgery, Tonsillectomy, Tubal Ligation Additional Past Surgical History / Comment(s): Bilateral breast implants, bilateral oophorectomy d/t cysts, EGDs, EGD with dilation, susu fundoplication with revision, R elbow surgery for MRSA infection, R rotator cuff repair, low back surgery (cemented), bilateral hip surgery for tendon/muscle repairs/screws in place. Cervical fusion Past Anesthesia/Blood Transfusion Reactions: No Reported Reaction, Family History of Problems w/ Anesthesia Additional Past Anesthesia/Blood Transfusion Reaction / Comment(s): MOTHER= A- FIB WITH ANESTHESIA. Past Psychological History: Anxiety, Bipolar, Depression Smoking Status: Current every day smoker Past Alcohol Use History: None Reported Past Drug Use History: None Reported - Past Family History Father Family Medical History: Eye Disorder, Hypertension Additional Family Medical History / Comment(s): Father committed suicide at the age of 58yrs. He had glaucoma Brother(s) Family Medical History: No Reported History Additional Family Medical History / Comment(s): She has one brother that is a recovered alcoholic with no other major medical problems. Sister(s) Additional Family Medical History / Comment(s): Patient has one sister that suffers from depression and anxiety Mother Family Medical History: Cancer, Dementia, Diabetes Mellitus, Deep Vein Throm bosis (DVT), Eye Disorder, Hypertension, Pulmonary Embolus Additional Family Medical History / Comment(s): Corneal transplant, breast cancer Medications and Allergies Home Medications Medication Instructions Recorded Confirmed Type Diazepam [Valium] 10 mg PO TID PRN 08/26/15 10/26/20 History estradioL [Estrace] 1 mg PO HS 07/19/16 10/26/20 History carBAMazepine [TEGretol XR] 400 mg PO HS 08/22/18 10/26/20 History Budesonide-Formot 160-4.5 Mcg 2 puff INHALATION RT-BID 04/09/19 10/26/20 History [Symbicort 160-4.5 Mcg Inhaler] Fenofibrate Nanocrystallized 48 mg PO HS 08/29/19 10/26/20 History [Fenofibrate] Albuterol Inhaler [Ventolin Hfa 2 puff INHALATION RT-Q4H PRN 07/21/20 10/26/20 History Inhaler] Fludrocortisone [Florinef] 0.1 mg PO DAILY 07/21/20 10/26/20 History Gabapentin 600 mg PO TID PRN 07/21/20 10/26/20 History Hydrocortisone [Cortef] 5 mg PO DAILY 07/21/20 10/26/20 History Loratadine 10 mg PO DAILY PRN 07/21/20 10/26/20 History Sennosides [Senna] 8.6 mg PO HS PRN 07/21/20 10/26/20 History Ziprasidone [Geodon] 20 mg PO HS 07/21/20 10/26/20 History oxyCODONE-APAP 10-325MG [Percocet 1 tab PO Q6H PRN 07/21/20 10/26/20 History 10-325 mg] Albuterol Nebulized [Ventolin 2.5 mg INHALATION RT-QID PRN 08/29/20 10/26/20 History Nebulized] Fluticasone Nasal [place] [Flonase 2 spr EA NOSTRIL DAILY 08/29/20 10/26/20 History Nasal [place]] Aspirin 325 mg PO ONCE PRN 10/26/20 10/26/20 History Lisinopril [Prinivil] 10 mg PO DAILY 10/26/20 10/26/20 History Nitroglycerin Sl Tabs [Nitrostat] 0.4 mg SUBLINGUAL ONCE PRN 10/26/20 10/26/20 History Ondansetron [Zofran] 4 mg PO Q6H PRN 10/26/20 10/26/20 History SUMAtriptan succinate [Sumatriptan 6 mg SQ ONCE PRN 10/26/20 10/26/20 History Succinate] cloNIDine HCL [Catapres] 0.1 mg PO ONCE PRN 10/26/20 10/26/20 History Allergies Allergy/AdvReac Type Severity Reaction Status Date / Time Penicillins Allergy Severe Anaphylaxis Verified 10/26/20 15:05 Iodinated Contrast Media Allergy Unknown Rash/Hives Verified 10/26/20 15:05 [Iodinated Contrast Media - IV Dye] egg yolk Allergy Unknown Verified 10/26/20 15:05 mustard Allergy Unknown Verified 10/26/20 15:05 Sulfa (Sulfonamide Allergy Unknown Verified 10/26/20 15:05 Antibiotics) sulfamethoxazole Allergy Rash/Hives Verified 10/26/20 15:05 [From Bactrim] trimethoprim [From Bactrim] Allergy Rash/Hives Verified 10/26/20 15:05 Physical Exam Vitals: Vital Signs Temp Pulse Pulse Resp BP BP Pulse Ox 10/26/20 15:58 97.9 F 62 16 164/85 97 10/26/20 15:39 98.1 F 85 18 142/90 98 10/26/20 14:49 71 20 135/93 97 10/26/20 13:55 98.4 F 90 20 172/108 98 Intake and Output 10/26/20 10/26/20 10/26/20 06:59 14:59 22:59 Other: Weight 72.575 kg General: The patient is awake and alert, in no distress Eye: there is normal conjunctiva bilaterally. Neck: The neck is supple, there is no JVD. Cardiovascular: Normal S1-S2, no S3-S4, no murmurs. Respiratory: Lungs clear to auscultation bilaterally Gastrointestinal: Abdomen is soft, nontender Musculoskeletal: There is no pedal edema. Neurological:. Speech is normal. Skin: Skin is warm and dry Results CBC & Chem 7: 10/26/20 14:04 10/26/20 14:04 Labs: Abnormal Lab Results - Last 24 Hours (Table) 10/26/20 10/26/20 Range/Units 14:04 14:04 MCV 105.9 H (80.0-100.0) fL Potassium 3.1 L (3.5-5.1) mmol/L AST 44 H (14-36) U/L Assessment and Plan Assessment: 1. Hypertensive emergency, blood pressure improved after receiving 1 dose of clonidine and Nitropaste. I will resume her lisinopril and continue with IV hydralazine as needed. Continue to monitor blood pressure closely. 2. Chest pain, mostly atypical in nature. Twelve-lead EKG in the ER showed no acute ischemic changes. Initial troponin negative. Serial troponin ordered. Cardiology consulted for further evaluation 3. History of adrenal insufficiency, diagnosed by her PCP. Continue home dose of Florinef and Cortef. Encouraged close follow-up with endocrinology at discharge. 4. Tobacco abuse: Counseled extensively to quit 5. Severe headache, most likely secondary to #1. Computed tomography scan of the brain in the ER with no acute intracranial findings. 6. Chronic medical problems, chronic back pain, peripheral neuropathy. 7. DVT prophylaxis with subcu
[2020-10-26] MEDS: oxyCODONE-APAP 10-325MG 1 EACH TAB PO PRN ×2 (17:12→23:02)
[2020-10-26] MEDS ORDERED: NITROGLYCERIN OINT 1 INCH/GM PACKET TOPICAL SCH (18:00)
[2020-10-26] MEDS: SYMBICORT 160-4.5 MCG INHALER INHALATION SCH (20:10)
[2020-10-26 20:52] VITALS: RESP 18
[2020-10-26] MEDS: HEPARIN SODIUM,PORCINE 5,000 UNIT/ML 1 ML VIAL SQ SCH (20:54)
[2020-10-26] MEDS ORDERED: FENOFIBRATE 54 MG TAB PO SCH (21:00)
[2020-10-26] MEDS ORDERED: ZIPRASIDONE 20 MG CAP PO SCH (21:00)
[2020-10-26] MEDS ORDERED: carBAMazepine 400 MG TAB.ER.12H PO SCH (21:00)
[2020-10-27] MEDS: POTASSIUM CHLORIDE ER 20 MEQ TAB.ER PO SCH ×2 (03:38→06:01)
[2020-10-27 03:42] VITALS: BP 159/91; TEMP 97.5
[2020-10-27 05:30] LABS: Chol/HDL Ratio 2.67
[2020-10-27] MEDS: SYMBICORT 160-4.5 MCG INHALER INHALATION SCH (07:17)
[2020-10-27] MEDS: oxyCODONE-APAP 10-325MG 1 EACH TAB PO PRN (07:55)
[2020-10-27 08:08] VITALS: PULSE 56
[2020-10-27] MEDS ORDERED: amLODIPine 5 MG TAB PO PRN (08:45)
[2020-10-27] MEDS: HEPARIN SODIUM,PORCINE 5,000 UNIT/ML 1 ML VIAL SQ SCH (08:58)
[2020-10-27] MEDS ORDERED: ASPIRIN 325 MG TAB PO SCH (09:00)
[2020-10-27] MEDS ORDERED: FLUDROCORTISONE 0.1 MG TAB PO SCH (09:00)
[2020-10-27] MEDS ORDERED: lisinopriL 10 MG TAB PO SCH (09:00)
[2020-10-27] MEDS ORDERED: HYDROCORTISONE 10 MG TAB PO SCH (09:00)
--- NOTE | 2020-10-27 10:21 | P.CRDCN ---
History of Present Illness Consult date: 10/26/20 History of present illness: CHIEF COMPLAINT: Chest pain, hypertension HISTORY OF PRESENT ILLNESS: This is a 50-year-old female with a past medical history significant for COPD, hypertension, hyperlipidemia, seizure disorder, a nd alcoholism. Patient does not follow with a chain maker. We have been asked to see the patient in consultation for chest pain and hypertension. Patient states that she has a history of hypertension and was previously on lisinopril. Patient states in May her blood pressure was running low. She reports apparent readings of 40s/20s. She states her primary care physician diagnosed her with adrenal insufficiency and started her on Cortef and Florinef last fall. Patient reports a history of a headache for the past 3 days. She states she took her blood pressure home and it was 240s/110s. She went to her primary care physician who verified patient's hypertension and sent her to the emergency room for further evaluation. Patient also reports having chest pressure for the past 3 days along with some shortness of breath this morning. She reports numbness in her arms but states that she had a cervical fusion so it is chronic for her. Patient reports daily cigarette use of 8 cigarettes per day, down from 3 packs per day. DIAGNOSTICS: EKG reveals sinus rhythm with nonspecific ST-T wave changes CT brain: No acute process seen Chest xray negative for acute process Laboratory data: WBC 7.3. Hemoglobin 14.3. Platelet count 184. Sodium 137. Potassium 3.1. BUN 10. Creatinine 0.64. Magnesium 1.7. Current home cardiac medications include Catapres 0.1 mg as needed, lisinopril 10 mg daily, Cortef 5 mg daily, Florinef 0.1 mg daily, aspirin 325 mg daily as needed Patient underwent dobutamine stress test in August 2019 which was negative for ischemia Echocardiogram completed in August 2019 revealed ejection fraction greater than 55%, mild mitral regurgitation, trace tricuspid regurgitation REVIEW OF SYSTEMS: At the time of my exam: CONSTITUTIONAL: Denies fever or chills. HEENT: Denies blurred vision, vision changes, or eye pain. Denies hemoptysis CARDIOVASCULAR: Denies chest pain, orthopnea, PND or palpitations RESPIRATORY: No shortness of breath. GASTROINTESTINAL: Denies abdominal pain. Denies nausea or vomiting. HEMATOLOGIC: Denies bleeding disorders. GENITOURINARY: Denies any blood in urine. SKIN: Denies pruitis. Denies rash. PHYSICAL EXAM: VITAL SIGNS: Reviewed. GENERAL: Well-developed in no acute distress. HEENT: Head is normocephalic. Pupils are equal, round. Sclerae anicteric. Mucous membranes of the mouth are moist. Neck supple. No JVD or thyromegaly LUNGS: Respirations even and unlabored. Lungs essentially clear to auscultation bilaterally. HEART: Regular rate and rhythm. S1 and S2 heard. ABDOMEN: Soft. Nondistended. Nontender. EXTREMITIES: Normal range of motion. No clubbing or cyanosis. Peripheral pulses intact. No lower extremity edema NEUROLOGIC: Awake and alert. Oriented x 3. ASSESSMENT: Hypertension, uncontrolled History of adrenal insufficiency, started on Florinef and Cortef in May 2020 Hyperlipidemia Seizure disorder Hypothyroidism History of alcohol abuse Nicotine dependence Anxiety Bipolar disorder Depression Cervical radiculopathy with previous cervical fusion PLAN: Obtain 2-D echo to assess cardiac structure and function Patient has been resumed on lisinopril this morning. Continue current medication regimen and monitor blood pressure. Discussed possible stress test with patient who declined this morning. She may follow up outpatient for stress test. Further recommendations pending patient course Nurse practitioner note has been reviewed by physician. Signing provider agrees with the documented findings, assessment, and plan of care. Past Medical History Past Medical History: Cancer, COPD, Fibromyalgia, GERD/Reflux, Hyperlipidemia, Hypertension, Osteoarthritis (OA), Pneumonia, Seizure Disorder, Thyroid Disorder Additional Past Medical History / Comment(s): Hpylori, arthritis in multiple joints, compression fracture L1 with chronic pain, last seizure in 2018 or 2019- pt unsure, hypothyroid, pt states she is an alcoholic and quit drinking 4 days ago, past elevated liver function tests, L breast "lump" being monitored, pt states past week she has had stomach pain after eating and past 2 weeks she has had blurry vision/bed wetting. History of Any Multi-Drug Resistant Organisms: MRSA Date of last positivie culture/infection: NOVEMBER 2012 MDRO Source:: RT ELBOW Past Surgical History: Adenoidectomy, Breast Surgery, Cholecystectomy, Hysterectomy, Orthopedic Surgery, Tonsillectomy, Tubal Ligation Additional Past Surgical History / Comment(s): Bilateral breast implants, bilateral oophorectomy d/t cysts, EGDs, EGD with dilation, susu fundoplication with revision, R elbow surgery for MRSA infection, R rotator cuff repair, low back surgery (cemented), bilateral hip surgery for tendon/muscle repairs/screws in place. Cervical fusion Past Anesthesia/Blood Transfusion Reactions: No Reported Reaction, Family History of Problems w/ Anesthesia Additional Past Anesthesia/Blood Transfusion Reaction / Comment(s): MOTHER= A- FIB WITH ANESTHESIA. Past Psychological History: Anxiety, Bipolar, Depression Smoking Status: Current every day smoker Past Alcohol Use History: None Reported Past Drug Use History: None Reported - Past Family History Father Family Medical History: Eye Disorder, Hypertension Additional Family Medical History / Comment(s): Father committed suicide at the age of 58yrs. He had glaucoma Brother(s) Family Medical History: No Reported History Additional Family Medical History / Comment(s): She has one brother that is a recovered alcoholic with no other major medical problems. Sister(s) Additional Family Medical History / Comment(s): Patient has one sister that suffers from depression and anxiety Mother Family Medical History: Cancer, Dementia, Diabetes Mellitus, Deep Vein Thrombo sis (DVT), Eye Disorder, Hypertension, Pulmonary Embolus Additional Family Medical History / Comment(s): Corneal transplant, breast cancer Medications and Allergies Home Medications Medication Instructions Recorded Confirmed Type Diazepam [Valium] 10 mg PO TID PRN 08/26/15 10/26/20 History estradioL [Estrace] 1 mg PO HS 07/19/16 10/26/20 History carBAMazepine [TEGretol XR] 400 mg PO HS 08/22/18 10/26/20 History Budesonide-Formot 160-4.5 Mcg 2 puff INHALATION RT-BID 04/09/19 10/26/20 History [Symbicort 160-4.5 Mcg Inhaler] Fenofibrate Nanocrystallized 48 mg PO HS 08/29/19 10/26/20 History [Fenofibrate] Albuterol Inhaler [Ventolin Hfa 2 puff INHALATION RT-Q4H PRN 07/21/20 10/26/20 History Inhaler] Fludrocortisone [Florinef] 0.1 mg PO DAILY 07/21/20 10/26/20 History Gabapentin 600 mg PO TID PRN 07/21/20 10/26/20 History Hydrocortisone [Cortef] 5 mg PO DAILY 07/21/20 10/26/20 History Loratadine 10 mg PO DAILY PRN 07/21/20 10/26/20 History Sennosides [Senna] 8.6 mg PO HS PRN 07/21/20 10/26/20 History Ziprasidone [Geodon] 20 mg PO HS 07/21/20 10/26/20 History oxyCODONE-APAP 10-325MG [Percocet 1 tab PO Q6H PRN 07/21/20 10/26/20 History 10-325 mg] Albuterol Nebulized [Ventolin 2.5 mg INHALATION RT-QID PRN 08/29/20 10/26/20 History Nebulized] Fluticasone Nasal Micro [Flonase 2 spr EA NOSTRIL DAILY 08/29/20 10/26/20 History Nasal Micro] Aspirin 325 mg PO ONCE PRN 10/26/20 10/26/20 History Lisinopril [Prinivil] 10 mg PO DAILY 10/26/20 10/26/20 History Nitroglycerin Sl Tabs [Nitrostat] 0.4 mg SUBLINGUAL ONCE PRN 10/26/20 10/26/20 History Ondansetron [Zofran] 4 mg PO Q6H PRN 10/26/20 10/26/20 History SUMAtriptan succinate [Sumatriptan 6 mg SQ ONCE PRN 10/26/20 10/26/20 History Succinate] cloNIDine HCL [Catapres] 0.1 mg PO ONCE PRN 10/26/20 10/26/20 History Allergies Allergy/AdvReac Type Severity Reaction Status Date / Time Penicillins Allergy Severe Anaphylaxis Verified 10/26/20 15:05 Iodinated Contrast Media Allergy Unknown Rash/Hives Verified 10/26/20 15:05 [Iodinated Contrast Media - IV Dye] egg yolk Allergy Unknown Verified 10/26/20 15:05 mustard Allergy Unknown Verified 10/26/20 15:05 Sulfa (Sulfonamide Allergy Unknown Verified 10/26/20 15:05 Antibiotics) sulfamethoxazole Allergy Rash/Hives Verified 10/26/20 15:05 [From Bactrim] trimethoprim [From Bactrim] Allergy Rash/Hives Verified 10/26/20 15:05 Physical Exam Vitals: Vital Signs Temp Pulse Resp BP Pulse Ox 10/26/20 14:49 71 20 135/93 97 10/26/20 13:55 98.4 F 90 20 172/108 98 Intake and Output 10/26/20 10/26/20 10/26/20 06:59 14:59 22:59 Other: Weight 72.575 kg Results 10/26/20 14:04 10/26/20 14:04 Cardiac Enzymes 10/26/20 10/26/20 Range/Units 14:04 14:04 AST 44 H (14-36) U/L Troponin I <0.012 (0.000-0.034) ng/mL Coagulation 10/26/20 Range/Units 14:04 PT 10.1 (9.0-12.0) sec APTT 22.4 (22.0-30.0) sec CBC 10/26/20 Range/Units 14:04 WBC 7.3 (3.8-10.6) k/uL RBC 4.10 (3.80-5.40) m/uL Hgb 14.3 (11.4-16.0) gm/dL Hct 43.5 (34.0-46.0) % Plt Count 184 (150-450) k/uL Comprehensive Metabolic Panel 10/26/20 Range/Units 14:04 Sodium 137 (137-145) mmol/L Potassium 3.1 L (3.5-5.1) mmol/L Chloride 103 (98-107) mmol/L Carbon Dioxide 23 (22-30) mmol/L BUN 10 (7-17) mg/dL Creatinine 0.64 (0.52-1.04) mg/dL Glucose 91 (74-99) mg/dL Calcium 8.8 (8.4-10.2) mg/dL AST 44 H (14-36) U/L ALT 33 (4-34) U/L Alkaline Phosphatase 102 (38-126) U/L Total Protein 6.7 (6.3-8.2) g/dL Albumin 4.1 (3.5-5.0) g/dL Current Medications Generic Name Dose Route Start Last Admin Trade Name Freq PRN Reason Stop Dose Admin Aspirin 325 mg 10/27/20 09:00 Aspirin 325 Mg Tab PO DAILY MISAEL Nitroglycerin 0.4 mg 10/26/20 14:54 Nitroglycerin Sl Tabs 0.4 Mg Tab SUBLINGUAL Q5M PRN Chest Pain Nitroglycerin 1 inch 10/26/20 18:00 Nitroglycerin Oint 1 Inch/Gm Packet TOPICAL Q6HR MISAEL Intake and Output 10/26/20 10/26/20 10/26/20 06:59 14:59 22:59 Other: Weight 72.575 kg Patient Weight 10/27/20 06:59 Weight 72.575 kg 10/26/20 14:04 10/26/20 14:04
[2020-10-27 10:54] LABS: Anion Gap 7.1 mmol/L (4.00-12.00); Calcium 9.1 mg/dL (8.7-10.3); Carbon Dioxide 25.9 mmol/L (21.6-31.8); Potassium 3.9 mmol/L (3.5-5.5)
[2020-10-27] MEDS ORDERED: POTASSIUM CHLORIDE ER 20 MEQ TAB.ER PO SCH (11:00)
--- NOTE | 2020-10-27 12:29 | P.DS ---
Providers Date of admission: 10/26/20 14:54 Expected date of discharge: 10/27/20 Attending physician: Gricel Paredes DO Consults: 10/26/20 14:54 Consult Physician Urgent Consulting Provider: [facility] Consult Reason/Comments: Chest pain, hypertensive Do you want consulting provider notified?: Yes Primary care physician: Maeve Berk[facility] Hospital Course: This is a 50-year-old female with complex past medical history noted below who presented to the emergency room with elevated blood pressure and chest pain. Patient was evaluated in the ER and placed on observation for further management of her medical problems noted below. 1. Hypertensive emergency, blood pressure improved. Patient was started on lisinopril 20 mg daily. She was encouraged to continue to monitor her blood pressure closely and follow up with her PCP as directed 2. Chest pain, mostly atypical in nature. ACS ruled out. Twelve-lead EKG in the ER showed no acute ischemic changes. Serial troponin negative. Patient was offered a cardiac stress test during this admission but she refused and after eating breakfast she requested the stress test to be done. She was informed t hat the tests need to be fasting. She will be scheduled for a stress test as an outpatient. 3. History of adrenal insufficiency, diagnosed by her PCP. Continue home dose of Florinef and Cortef. Encouraged close follow-up with endocrinology at discharge for further evaluation. 4. Tobacco abuse: Counseled extensively to quit 5. Severe headache, now resolved. most likely secondary to #1. Computed tomography scan of the brain in the ER with no acute intracranial findings. 6. Chronic medical problems, chronic back pain, peripheral neuropathy. Patient will be discharged home in a stable condition. For further details about this hospitalization please refer to the electronic chart. Time spent on discharge > 30 minutes including counseling and coordination of care Plan - Discharge Summary Discharge Rx Participant: No New Discharge Prescriptions: New lisinopriL 20 mg PO DAILY #30 tab Continue Diazepam [Valium] 10 mg PO TID PRN PRN Reason: Anxiety estradioL [Estrace] 1 mg PO HS carBAMazepine [TEGretol XR] 400 mg PO HS Budesonide-Formot 160-4.5 Mcg [Symbicort 160-4.5 Mcg Inhaler] 2 puff INHALATION RT-BID Fenofibrate Nanocrystallized [Fenofibrate] 48 mg PO HS Ziprasidone [Geodon] 20 mg PO HS Albuterol Inhaler [Ventolin Hfa Inhaler] 2 puff INHALATION RT-Q4H PRN PRN Reason: Shortness Of Breath oxyCODONE-APAP 10-325MG [Percocet 10-325 mg] 1 tab PO Q6H PRN PRN Reason: Pain Sennosides [Senna] 8.6 mg PO HS PRN PRN Reason: Constipation Hydrocortisone [Cortef] 5 mg PO DAILY Gabapentin 600 mg PO TID PRN PRN Reason: Pain Fludrocortisone [Florinef] 0.1 mg PO DAILY Fluticasone Nasal Flatgap [Flonase Nasal Flatgap] 2 spr EA NOSTRIL DAILY Albuterol Nebulized [Ventolin Nebulized] 2.5 mg INHALATION RT-QID PRN PRN Reason: Shortness Of Breath Nitroglycerin Sl Tabs [Nitrostat] 0.4 mg SUBLINGUAL ONCE PRN PRN Reason: Chest Pain SUMAtriptan succinate [Sumatriptan Succinate] 6 mg SQ ONCE PRN PRN Reason: Migraine Headache Discontinued Loratadine 10 mg PO DAILY PRN PRN Reason: Allergy Symptoms cloNIDine HCL [Catapres] 0.1 mg PO ONCE PRN PRN Reason: HIGH BP Aspirin 325 mg PO ONCE PRN PRN Reason: Chest Pain Lisinopril [Prinivil] 10 mg PO DAILY Ondansetron [Zofran] 4 mg PO Q6H PRN PRN Reason: Nausea And Vomiting Discharge Medication List Diazepam [Valium] 10 mg PO TID PRN 08/26/15 [History] estradioL [Estrace] 1 mg PO HS 07/19/16 [History] carBAMazepine [TEGretol XR] 400 mg PO HS 08/22/18 [History] Budesonide-Formot 160-4.5 Mcg [Symbicort 160-4.5 Mcg Inhaler] 2 puff INHALATION RT-BID 04/09/19 [History] Fenofibrate Nanocrystallized [Fenofibrate] 48 mg PO HS 08/29/19 [History] Albuterol Inhaler [Ventolin Hfa Inhaler] 2 puff INHALATION RT-Q4H PRN 07/21/20 [History] Fludrocortisone [Florinef] 0.1 mg PO DAILY 07/21/20 [History] Gabapentin 600 mg PO TID PRN 07/21/20 [History] Hydrocortisone [Cortef] 5 mg PO DAILY 07/21/20 [History] Sennosides [Senna] 8.6 mg PO HS PRN 07/21/20 [History] Ziprasidone [Geodon] 20 mg PO HS 07/21/20 [History] oxyCODONE-APAP 10-325MG [Percocet 10-325 mg] 1 tab PO Q6H PRN 07/21/20 [History] Albuterol Nebulized [Ventolin Nebulized] 2.5 mg INHALATION RT-QID PRN 08/29/20 [History] Fluticasone Nasal Flatgap [Flonase Nasal Flatgap] 2 spr EA NOSTRIL DAILY 08/29/20 [History] Nitroglycerin Sl Tabs [Nitrostat] 0.4 mg SUBLINGUAL ONCE PRN 10/26/20 [History] SUMAtriptan succinate [Sumatriptan Succinate] 6 mg SQ ONCE PRN 10/26/20 [History] lisinopriL 20 mg PO DAILY #30 tab 10/27/20 [Rx] Follow up Appointment(s)/Referral(s): Maeve Berkowitz NPC [Primary Care Provider] - 1-2 days Areli Coyne MD [STAFF PHYSICIAN] - 1 Week Discharge Disposition: HOME SELF-CARE
--- NOTE | 2020-10-27 12:31 | ECHOF ---
Referral Reason:LV function, chest pain MEASUREMENTS -------- HEIGHT: 180.3 cm WEIGHT: 72.6 kg BP: 159/91 RVIDd: 3.3 cm (< 3.3) IVSd: 1.3 cm (0.6 - 1.1) LVIDd: 4.8 cm (3.9 - 5.3) LVPWd: 1.3 cm (0.6 - 1.1) IVSs: 1.4 cm LVIDs: 3.1 cm LVPWs: 2.1 cm LAESV Index (A-L): 23.50 ml/m Ao Diam: 2.6 cm (2.0 - 3.7) AV Cusp: 2.0 cm (1.5 - 2.6) LA Diam: 3.9 cm (2.7 - 3.8) MV EXCURSION: 13.117 mm (> 18.000) MV EF SLOPE: 66 mm/s (70 - 150) EPSS: 0.7 cm MV E Merritt: 0.75 m/s MV DecT: 209 ms MV A Merritt: 0.65 m/s MV E/A Ratio: 1.17 RAP: 5.00 mmHg RVSP: 31.84 mmHg FINDINGS -------- Sinus rhythm. This was a technically good study. The left ventricular size is normal. There is mild concentric left ventricular hypertrophy. Overa ll left ventricular systolic function is normal with, an EF between 55 - 60 %. The diastolic fillin g pattern is normal for the age of the patient 11.67. The right ventricle is mildly enlarged. Normal LA size by volume 22+/-6 ml/m2. The right atrial size is normal. Interatrial and interventricular septum intact. The aortic valve is trileaflet and appears structurally normal. There is no evidence of aortic regu rgitation. There is no evidence of aortic stenosis. No mitral regurgitation. Mild tricuspid regurgitation present. There is no evidence of pulmonary hypertension. The right v entricular systolic pressure, as measured by Doppler, is 31.84mmHg. There is no pulmonic regurgitation present. The aortic root size is normal. IVC Not well visulized. There is no pericardial effusion. CONCLUSIONS -------- 1. Sinus rhythm. 2. The left ventricular size is normal. 3. There is mild concentric left ventricular hypertrophy. 4. Overall left ventricular systolic function is normal with, an EF between 55 - 60 %. 5. The diastolic filling pattern is normal for the age of the patient 11.67 6. The right ventricle is mildly enlarged. 7. Mild tricuspid regurgitation present. DIRECTOR OF MEDICAL SERVICES: Brittany García RDCS
== END 2020-10-27 13:15 | disposition home or self-care (01) ==
LOC: EC 13:48 → 6NMEDSUR 14:54
PROVIDERS: ADMIT Internal Medicine; ATTEND Internal Medicine
DX: I16.1 Hypertensive emergency (principal); R07.89 Other chest pain; E27.40 Unspecified adrenocortical insufficiency; F17.210 Nicotine dependence, cigarettes, uncomplicated; E78.5 Hyperlipidemia, unspecified; G40.909 Epilepsy, unspecified, not intractable, without status epilepticus; I10 Essential (primary) hypertension; J44.9 Chronic obstructive pulmonary disease, unspecified; M15.9 Polyosteoarthritis, unspecified; G89.29 Other chronic pain; G62.9 Polyneuropathy, unspecified; M79.7 Fibromyalgia; K21.9 Gastro-esophageal reflux disease without esophagitis; M19.90 Unspecified osteoarthritis, unspecified site; E03.9 Hypothyroidism, unspecified; F10.20 Alcohol dependence, uncomplicated; N39.44 Nocturnal enuresis; F31.9 Bipolar disorder, unspecified; F41.9 Anxiety disorder, unspecified; M48.56XA Collapsed vertebra, not elsewhere classified, lumbar region, initial encounter for fracture; I34.0 Nonrheumatic mitral (valve) insufficiency; M54.12 Radiculopathy, cervical region; Z79.51 Long term (current) use of inhaled steroids; Z79.52 Long term (current) use of systemic steroids; Z79.899 Other long term (current) drug therapy; Z79.891 Long term (current) use of opiate analgesic; Z88.1 Allergy status to other antibiotic agents; Z91.041 Radiographic dye allergy status; Z91.012 Allergy to eggs; Z88.0 Allergy status to penicillin; Z88.2 Allergy status to sulfonamides; Z91.018 Allergy to other foods; Z87.01 Personal history of pneumonia (recurrent); Z86.14 Personal history of Methicillin resistant Staphylococcus aureus infection; Z90.49 Acquired absence of other specified parts of digestive tract; Z98.1 Arthrodesis status; Z87.19 Personal history of other diseases of the digestive system; Z98.82 Breast implant status; Z90.722 Acquired absence of ovaries, bilateral; Z90.710 Acquired absence of both cervix and uterus; Z98.890 Other specified postprocedural states; Z20.828 Contact with and (suspected) exposure to other viral communicable diseases; Z82.49 Family history of ischemic heart disease and other diseases of the circulatory system; Z83.511 Family history of glaucoma; Z81.8 Family history of other mental and behavioral disorders; Z81.1 Family history of alcohol abuse and dependence; Z83.3 Family history of diabetes mellitus; Z83.518 Family history of other specified eye disorder; Z80.3 Family history of malignant neoplasm of breast
CPT/HCPCS: 96372; 93005 ×2; 99285; 36415; 94640; 93306; 80061; 80053; 80048; 83735; 84484; 85025; 85610; 85730; 87635; 71046; 70450; G0378 ×2; J1644

== ENCOUNTER 2020-11-07 20:22 | Inpatient (IN) | payer MEDICARE, OTHER ==
[2020-11-07] MEDS ORDERED: SODIUM CHLORIDE 0.9% 1,000 ML IV STA (20:31)
--- NOTE | 2020-11-07 20:40 | ED ---
General Adult HPI - General Chief complaint: Overdose Stated complaint: Overdose Time Seen by Provider: 11/07/20 20:30 Source: patient, EMS Mode of arrival: EMS Limitations: no limitations - History of Present Illness Initial comments: Patient presents the ED by ambulance for evaluation status post reported overdose. Patient states that she took 120 pills of Valium 10 mg, 1 pill of oxycodone and 4 shots of alcohol over a 10 minute period about 40 minutes prior to arrival to the ED. Patient states that she did this because she wanted to "fall asleep", and she denies doing it in a suicidal attempt. Patient denies having suicidal ideations. Patient denies any other medication abuse or overdose. Patient denies illicit drug use. Patient states that she currently feels tired. Patient denies trauma or injury, any pain, fever or chills, headache, focal neuro deficit, chest pain, dyspnea, palpitations, dizziness, abdominal pain, nausea or vomiting, or any other symptoms or complaints. - Related Data Home Medications Medication Instructions Recorded Confirmed Diazepam [Valium] 10 mg PO TID PRN 08/26/15 11/07/20 estradioL [Estrace] 1 mg PO HS 07/19/16 11/07/20 carBAMazepine [TEGretol XR] 400 mg PO HS 08/22/18 11/07/20 Fenofibrate Nanocrystallized 48 mg PO HS 08/29/19 11/07/20 [Fenofibrate] Albuterol Inhaler [Ventolin Hfa 2 puff INHALATION RT-Q4H PRN 07/21/20 11/07/20 Inhaler] Fludrocortisone [Florinef] 0.1 mg PO DAILY 07/21/20 11/07/20 Hydrocortisone [Cortef] 15 mg PO DAILY 07/21/20 11/07/20 Sennosides [Senna] 8.6 mg PO HS PRN 07/21/20 11/07/20 Ziprasidone [Geodon] 20 mg PO HS 07/21/20 11/07/20 oxyCODONE-APAP 10-325MG [Percocet 1 tab PO Q6H PRN 07/21/20 11/07/20 10-325 mg] Fluticasone Nasal [place] [Flonase 2 spr EA NOSTRIL DAILY 08/29/20 11/07/20 Nasal [place]] Nitroglycerin Sl Tabs [Nitrostat] 0.4 mg SUBLINGUAL ONCE PRN 10/26/20 11/07/20 SUMAtriptan succinate [Sumatriptan 6 mg SQ ONCE PRN 10/26/20 11/07/20 Succinate] Imiquimod 1 packet TOPICAL DAILY PRN 11/07/20 11/07/20 Ondansetron HCl [Zofran] 4 mg PO Q8H PRN 11/07/20 11/07/20 Previous Rx's Medication Instructions Recorded lisinopriL 20 mg PO DAILY #30 tab 10/27/20 Allergies Allergy/AdvReac Type Severity Reaction Status Date / Time Penicillins Allergy Severe Anaphylaxis Verified 10/26/20 15:05 Iodinated Contrast Media Allergy Unknown Rash/Hives Verified 10/26/20 15:05 [Iodinated Contrast Media - IV Dye] egg yolk Allergy Unknown Verified 10/26/20 15:05 mustard Allergy Unknown Verified 10/26/20 15:05 Sulfa (Sulfonamide Allergy Unknown Verified 10/26/20 15:05 Antibiotics) sulfamethoxazole Allergy Rash/Hives Verified 10/26/20 15:05 [From Bactrim] trimethoprim [From Bactrim] Allergy Rash/Hives Verified 10/26/20 15:05 Review of Systems ROS Statement: Those systems with pertinent positive or pertinent negative responses have been documented in the HPI. ROS Other: All systems not noted in ROS Statement are negative. Past Medical History Past Medical History: Cancer, COPD, Fibromyalgia, GERD/Reflux, Hyperlipidemia, Hypertension, Osteoarthritis (OA), Pneumonia, Seizure Disorder, Thyroid Disorder Additional Past Medical History / Comment(s): Hpylori, arthritis in multiple joints, compression fracture L1 with chronic pain, last seizure in 2018 or 2019- pt unsure, hypothyroid, pt states she is an alcoholic and quit drinking 4 days a go, past elevated liver function tests, L breast "lump" being monitored, pt states past week she has had stomach pain after eating and past 2 weeks she has had blurry vision/bed wetting. History of Any Multi-Drug Resistant Organisms: MRSA Date of last positivie culture/infection: NOVEMBER 2012 MDRO Source:: RT [place]OW Past Surgical History: Adenoidectomy, Breast Surgery, Cholecystectomy, Hysterectomy, Orthopedic Surgery, Tonsillectomy, Tubal Ligation Additional Past Surgical History / Comment(s): Bilateral breast implants, bilateral oophorectomy d/t cysts, EGDs, EGD with dilation, susu fundoplication with revision, R elbow surgery for MRSA infection, R rotator cuff repair, low back surgery (cemented), bilateral hip surgery for tendon/muscle repairs/screws in place. Cervical fusion Past Anesthesia/Blood Transfusion Reactions: No Reported Reaction, Family History of Problems w/ Anesthesia Additional Past Anesthesia/Blood Transfusion Reaction / Comment(s): MOTHER= A- FIB WITH ANESTHESIA. Past Psychological History: Anxiety, Bipolar, Depression Smoking Status: Current every day smoker Past Alcohol Use History: None Reported Past Drug Use History: None Reported - Past Family History Father Family Medical History: Eye Disorder, Hypertension Additional Family Medical History / Comment(s): Father committed suicide at the age of 58yrs. He had glaucoma Brother(s) Family Medical History: No Reported History Additional Family Medical History / Comment(s): She has one brother that is a recovered alcoholic with no other major medical problems. Sister(s) Additional Family Medical History / Comment(s): Patient has one sister that suffers from depression and anxiety Mother Family Medical History: Cancer, Dementia, Diabetes Mellitus, Deep Vein Thrombosis (DVT), Eye Disorder, Hypertension, Pulmonary Embolus Additional Family Medical History / Comment(s): Corneal transplant, breast cancer General Exam Limitations: no limitations General appearance: other (Patient is somnolent in appearance, but easily arousable) Head exam: Present: atraumatic, normocephalic Eye exam: Present: normal appearance, PERRL, EOMI ENT exam: Present: normal oropharynx, mucous membranes moist Neck exam: Present: other (Trachea is in midline). Absent: tenderness Respiratory exam: Present: normal lung sounds bilaterally. Absent: respiratory distress, wheezes, rales, rhonchi, stridor Cardiovascular Exam: Present: regular rate, normal rhythm, normal heart sounds, other (Normal radial pulses bilaterally) GI/Abdominal exam: Present: soft. Absent: distended, tenderness, guarding Extremities exam: Absent: tenderness, pedal edema, calf tenderness Neurological exam: Present: oriented X3, CN II-XII intact, other (Patient is somnolent appearance, but easily arousable). Absent: motor sensory deficit Skin exam: Present: warm, dry, intact, normal color Course Vital Signs 11/07/20 11/07/20 20:23 21:42 Temperature 99.0 F Pulse Rate 95 71 Respiratory 16 13 Rate Blood Pressure 136/92 87/57 O2 Sat by Pulse 98 100 Oximetry - Reevaluation(s) Reevaluation #1: 11/07/20 20:54 Case, H&P, pending ED workup and ED management thus far were discussed with the [place] [facility]. They will follow the patient's case. 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 11/07/20 21:07 Patient has become much more somnolent, and she is now barely responding to painful stimulus. Will prepare for intubation. 11/07/20 22:21 Case, H&P, test results and ED management thus far were discussed with Dr. Juares who is currently in the ED. He accepts ICU admission. He has no further recomm endations at this time. 11/07/20 22:25 Case, H&P, test results and ED management thus far were discussed with Dr. Gregory (soap tender). He is aware that the patient will be admitted to the ICU. EKG Findings - EKG Comments: EKG Findings:: Normal sinus rhythm, ventricular rate of 91 bpm, no ectopy, normal CT and QRS intervals, normal QT interval, normal axis, no ST or T-wave abnormality Procedures - Intubation Sedative: Etomidate Mg Given: 20 Paralytic: Succinylcholine Mg Given: 120 Laryngoscope: other (Glidescope) Size: 3 ET Tube Size: 8 Tube Secured Depth (cm): 24 Tube Secured Location: lips Tube Placement Confirmation: visualized tube passing through cords, equal breath sounds bilaterally, no breath sounds over epigastrium Patient Tolerated Procedure: no complications Intubation Complications: none Medical Decision Making - Medical Decision Making Patient reported ingesting a very large Valium overdose, and she quickly de teriorated upon arrival to the ED. Patient became obtunded and difficult to arouse shortly after ED arrival, and so I made the decision to intubate her for airway protection. Patient is currently intubated and on the ventilator. Patient is currently on a propofol IV drip. Patient's urine drug screen is positive for opiates and benzodiazepines. Patient's alcohol level is 198. Patient's lactic acid level is elevated, and I am unsure of the etiology for this. Patient has benign hydrated with IV fluids in the ED. Dr. Juares has accepted hospital admission. Dr. Gregory has been consulted. - Lab Data Result diagrams: 11/07/20 20:40 11/07/20 20:40 Lab Results 11/07/20 11/07/20 11/07/20 Range/Units 20:40 20:40 20:40 WBC 8.1 (3.8-10.6) k/uL RBC 4.51 (3.80-5.40) m/uL Hgb 15.6 (11.4-16.0) gm/dL Hct 48.4 H (34.0-46.0) % MCV 107.2 H (80.0-100.0) fL MCH 34.6 (25.0-35.0) pg MCHC 32.3 (31.0-37.0) g/dL RDW 13.8 (11.5-15.5) % Plt Count 189 (150-450) k/uL MPV 8.0 Neutrophils % 63 % Lymphocytes % 30 % Monocytes % 5 % Eosinophils % 2 % Basophils % 0 % Neutrophils # 5.0 (1.3-7.7) k/uL Lymphocytes # 2.4 (1.0-4.8) k/uL Monocytes # 0.4 (0-1.0) k/uL Eosinophils # 0.1 (0-0.7) k/uL Basophils # 0.0 (0-0.2) k/uL Macrocytosis Moderate PT 11.2 (9.0-12.0) sec INR 1.1 (<1.2) APTT 20.8 L (22.0-30.0) sec Sodium 144 (137-145) mmol/L Potassium 3.4 L (3.5-5.1) mmol/L Chloride 108 H (98-107) mmol/L Carbon Dioxide 21 L (22-30) mmol/L Anion Gap 15 mmol/L BUN 11 (7-17) mg/dL Creatinine 1.15 H (0.52-1.04) mg/dL Est GFR (CKD-EPI)AfAm 65 (>60 ml/min/1.73 sqM) Est GFR (CKD-EPI)NonAf 56 (>60 ml/min/1.73 sqM) Glucose 80 (74-99) mg/dL Plasma Lactic Acid Matthew (0.7-2.0) mmol/L Calcium 9.5 (8.4-10.2) mg/dL Total Bilirubin 0.7 (0.2-1.3) mg/dL AST 31 (14-36) U/L ALT 17 (4-34) U/L Alkaline Phosphatase 86 (38-126) U/L Creatine Kinase 292 H (30-135) U/L Total Protein 7.4 (6.3-8.2) g/dL Albumin 4.5 (3.5-5.0) g/dL Urine HCG, Qual (Not Detectd) Salicylates <1.0 mg/dL Urine Opiates Screen (NotDetected) Ur Oxycodone Screen (NotDetected) Urine Methadone Screen (NotDetected) Ur Propoxyphene Screen (NotDetected) Acetaminophen <10.0 ug/mL Ur Barbiturates Screen (NotDetected) Carbamazepine 7.4 ug/mL U Tricyclic Antidepress (NotDetected) Ur Phencyclidine Scrn (NotDetected) Ur Amphetamines Screen (NotDetected) U Methamphetamines Scrn (NotDetected) U Benzodiazepines Scrn (NotDetected) Urine Cocaine Screen (NotDetected) U Marijuana (THC) Screen (NotDetected) Serum Alcohol 198 mg/dL 11/07/20 11/07/20 11/07/20 Range/Units 20:40 21:31 21:31 WBC (3.8-10.6) k/uL RBC (3.80-5.40) m/uL Hgb (11.4-16.0) gm/dL Hct (34.0-46.0) % MCV (80.0-100.0) fL MCH (25.0-35.0) pg MCHC (31.0-37.0) g/dL RDW (11.5-15.5) % Plt Count (150-450) k/uL MPV Neutrophils % % Lymphocytes % % Monocytes % % Eosinophils % % Basophils % % Neutrophils # (1.3-7.7) k/uL Lymphocytes # (1.0-4.8) k/uL Monocytes # (0-1.0) k/uL Eosinophils # (0-0.7) k/uL Basophils # (0-0.2) k/uL Macrocytosis PT (9.0-12.0) sec INR (<1.2) APTT (22.0-30.0) sec Sodium (137-145) mmol/L Potassium (3.5-5.1) mmol/L Chloride (98-107) mmol/L Carbon Dioxide (22-30) mmol/L Anion Gap mmol/L BUN (7-17) mg/dL Creatinine (0.52-1.04) mg/dL Est GFR (CKD-EPI)AfAm (>60 ml/min/1.73 sqM) Est GFR (CKD-EPI)NonAf (>60 ml/min/1.73 sqM) Glucose (74-99) mg/dL Plasma Lactic Acid Matthew 6.1 H* (0.7-2.0) mmol/L Calcium (8.4-10.2) mg/dL Total Bilirubin (0.2-1.3) mg/dL AST (14-36) U/L ALT (4-34) U/L Alkaline Phosphatase (38-126) U/L Creatine Kinase (30-135) U/L Total Protein (6.3-8.2) g/dL Albumin (3.5-5.0) g/dL Urine HCG, Qual Not Detected (Not Detectd) Salicylates mg/dL Urine Opiates Screen Detected H (NotDetected) Ur Oxycodone Screen Not Detected (NotDetected) Urine Methadone Screen Not Detected (NotDetected) Ur Propoxyphene Screen Not Detected (NotDetected) Acetaminophen ug/mL Ur Barbiturates Screen Not Detected (NotDetected) Carbamazepine ug/mL U Tricyclic Antidepress Not Detected (NotDetected) Ur Phencyclidine Scrn Not Detected (NotDetected) Ur Amphetamines Screen Not Detected (NotDetected) U Methamphetamines Scrn Not Detected (NotDetected) U Benzodiazepines Scrn Detected H (NotDetected) Urine Cocaine Screen Not Detected (NotDetected) U Marijuana (THC) Screen Not Detected (NotDetected) Serum Alcohol mg/dL Critical Care Time Critical Care Time: Yes Total Critical Care Time: 70 (medication overdose) Disposition Clinical Impression: Medication overdose, Alcohol abuse, Suicidal risk Disposition: ADMITTED IP TO THIS [facility] Condition: Critical Is patient prescribed a controlled substance at d/c from ED?: No Referrals: None,Stated [Primary Care Provider] - 1-2 days Time of Disposition: 22:21
[2020-11-07 20:53] LABS: Basophils % (A) 0 %; Eosinophils # (A) 0.1 k/uL (0-0.7); Eosinophils % (A) 2 %; HCT 48.4 % (34.0-46.0); HGB 15.6 gm/dL (11.4-16.0); Lymphocytes # (A) 2.4 k/uL (1.0-4.8); Lymphocytes % (A) 30 %; MCH 34.6 pg (25.0-35.0); MCHC 32.3 g/dL (31.0-37.0); MCV 107.2 fL (80.0-100.0); Macrocytosis Moderate; Monocytes # (A) 0.4 k/uL (0-1.0); Monocytes % (A) 5 %; Neutrophils % (A) 63 %; Platelet Count 189 k/uL (150-450); RBC 4.51 m/uL (3.80-5.40); RDW 13.8 % (11.5-15.5); WBC 8.1 k/uL (3.8-10.6)
[2020-11-07] MEDS ORDERED: ONDANSETRON 4 MG/2 ML VIAL IVP STA (20:54)
[2020-11-07 21:11] LABS: ALT 17 U/L (4-34); AST 31 U/L (14-36); Acetaminophen <10.0 ug/mL; African American GFR (CKD) 65 (>60 ml/min/1.73 sqM); Albumin 4.5 g/dL (3.5-5.0); Alkaline Phosphatase 86 U/L (38-126); Anion Gap 15 mmol/L; Blood Urea Nitrogen 11 mg/dL (7-17); Calcium 9.5 mg/dL (8.4-10.2); Carbamazepine (Tegretol) 7.4 ug/mL; Carbon Dioxide 21 mmol/L (22-30); Chloride 108 mmol/L (98-107); Creatine Kinase 292 U/L (30-135); Glucose 80 mg/dL (74-99); Non-African American GFR(CKD) 56 (>60 ml/min/1.73 sqM); Potassium 3.4 mmol/L (3.5-5.1); Salicylate <1.0 mg/dL; Sodium 144 mmol/L (137-145); Total Bilirubin 0.7 mg/dL (0.2-1.3); Total Protein 7.4 g/dL (6.3-8.2)
[2020-11-07 21:12] LABS: INR 1.1 (<1.2); Prothrombin Time 11.2 sec (9.0-12.0)
[2020-11-07 21:14] LABS: Alcohol 198 mg/dL
[2020-11-07 21:19] LABS: Partial Thromboplastin Time 20.8 sec (22.0-30.0)
[2020-11-07] MEDS ORDERED: SUCCINYLCHOLINE CHLORIDE VIAL 200 MG/10 ML VIAL IV STA (21:19)
[2020-11-07] MEDS ORDERED: ETOMIDATE 2 MG/ML 10 ML VIAL IVP STA (21:20)
[2020-11-07 22:04] LABS: Amphetamine Screen,Urine Not Detected (NotDetected); Barbiturate Screen,Urine Not Detected (NotDetected); Benzodiazepines Screen,Urine Detected (NotDetected); Cocaine Screen,Urine Not Detected (NotDetected); Methadone Screen, Urine Not Detected (NotDetected); Opiate Screen,Urine Detected (NotDetected); Oxycodone Screen, Urine Not Detected (NotDetected); Phencyclidine Screen,Urine Not Detected (NotDetected); Tricyclic Antidepressant,Urine Not Detected (NotDetected); Urn Cannabinoid Scrn Not Detected (NotDetected)
[2020-11-07] MEDS ORDERED: SODIUM CHLORIDE 0.9% 1,000 ML IV ONE (22:07)
--- NOTE | 2020-11-07 22:10 | XR ---
EXAMINATION TYPE: XR chest 1V portable DATE OF EXAM: 11/07/2020 COMPARISON: 10/26/2020. HISTORY: Overdose. TECHNIQUE: Single frontal view of the chest is obtained. FINDINGS: There is demonstration of an endotracheal tube terminating 3.2 cm above the coty as well as assess NG tube coursing below the diaphragm and visualized distal portion overlying the stomach. No pleural effusion, or pneumothorax seen. There is mild dilatation of the right hemidiaphragm with m ild adjacent atelectasis. The cardiac silhouette size is within normal limits. The osseous structu res are without acute abnormality. Cervical spine fusion is seen. IMPRESSION: Status post support apparatus as above. Mild elevation of the right hemidiaphragm with atelectasis. No pneumothorax.
[2020-11-07 22:27] LABS: ABG Base Excess -6.6 mmol/L; ABG HCO3 20 mmol/L (21-25); ABG PCO2 41 mmHg (35-45); ABG PH 7.29 (7.35-7.45); ABG PO2 >400 mmHg (83-108); ABG TCO2 21 mmol/L (19-24); Allen Test Performed? Yes
--- NOTE | 2020-11-07 23:35 | P.HPIM ---
History of Present Illness H&P Date: 11/07/20 Patient is a 50-year-old female with an extensive PMH including seizure disorder, hypertension, hyperlipidemia, adrenal insufficiency, COPD, and fibromyalgia who presented to the emergency room after an intentional overdose. The patient reported to the emergency room physician that she had taken 120 tabs of 10 mg Valium 40 minutes prior to arrival "to try to sleep". The patient had also reported taking 1 tablet of oxycodone and 4 shots of vodka. The patient had also denied suicidal ideation to the emergency room physician. The patient was initially slightly lethargic but conversant as per the ED physician. The patient was given activated charcoal though she subsequently became unarousable and was intubated and placed on mechanical ventilation. Case was discussed with poison control by ED physician. The patient was subsequently seen in the emergency room. She was intubated and thereby no history could be obtained. She underwent an extensive evaluation in the emergency room which was all reviewed. EKG revealed normal sinus rhythm at 91 bpm with no ischemic ST/T-wave changes noted as reviewed by me. Laboratory evaluation was remarkable for potassium 3.4, creatinine 1.15, lactic acid 6.1, CK 292, with Utox positive for Salicylate and benzodiazepines. Review of Systems ROS unobtainable: due to endotracheal tube Past Medical History Past Medical History: Cancer, COPD, Fibromyalgia, GERD/Reflux, Hyperlipidemia, Hypertension, Osteoarthritis (OA), Pneumonia, Seizure Disorder, Thyroid Disorder Additional Past Medical History / Comment(s): Hpylori, arthritis in multiple joints, compression fracture L1 with chronic pain, last seizure in 2018 or 2019- pt unsure, hypothyroid, pt states she is an alcoholic and quit drinking 4 days ago, past elevated liver function tests, L breast "lump" being monitored, pt states past week she has had stomach pain after eating and past 2 weeks she has had blurry vision/bed wetting. History of Any Multi-Drug Resistant Organisms: MRSA Date of last positivie culture/infection: NOVEMBER 2012 MDRO Source:: RT ELBOW Past Surgical History: Adenoidectomy, Breast Surgery, Cholecystectomy, Hysterectomy, Orthopedic Surgery, Tonsillectomy, Tubal Ligation Additional Past Surgical History / Comment(s): Bilateral breast implants, bilateral oophorectomy d/t cysts, EGDs, EGD with dilation, susu fundoplication with revision, R elbow surgery for MRSA infection, R rotator cuff repair, low back surgery (cemented), bilateral hip surgery for tendon/muscle repairs/screws in place. Cervical fusion Past Anesthesia/Blood Transfusion Reactions: No Reported Reaction, Family History of Problems w/ Anesthesia Additional Past Anesthesia/Blood Transfusion Reaction / Comment(s): MOTHER= A- FIB WITH ANESTHESIA. Past Psychological History: Anxiety, Bipolar, Depression Smoking Status: Current every day smoker Past Alcohol Use History: None Reported Past Drug Use History: None Reported - Past Family History Father Family Medical History: Eye Disorder, Hypertension Additional Family Medical History / Comment(s): Father committed suicide at the age of 58yrs. He had glaucoma Brother(s) Family Medical History: No Reported History Additional Family Medical History / Comment(s): She has one brother that is a recovered alcoholic with no other major medical problems. Sister(s) Additional Family Medical History / Comment(s): Patient has one sister that suffers from depression and anxiety Mother Family Medical History: Cancer, Dementia, Diabetes Mellitus, Deep Vein Thrombos is (DVT), Eye Disorder, Hypertension, Pulmonary Embolus Additional Family Medical History / Comment(s): Corneal transplant, breast cancer Medications and Allergies Home Medications Medication Instructions Recorded Confirmed Type Diazepam [Valium] 10 mg PO TID PRN 08/26/15 11/07/20 History estradioL [Estrace] 1 mg PO HS 07/19/16 11/07/20 History carBAMazepine [TEGretol XR] 400 mg PO HS 08/22/18 11/07/20 History Fenofibrate Nanocrystallized 48 mg PO HS 08/29/19 11/07/20 History [Fenofibrate] Albuterol Inhaler [Ventolin Hfa 2 puff INHALATION RT-Q4H PRN 07/21/20 11/07/20 History Inhaler] Fludrocortisone [Florinef] 0.1 mg PO DAILY 07/21/20 11/07/20 History Hydrocortisone [Cortef] 15 mg PO DAILY 07/21/20 11/07/20 History Sennosides [Senna] 8.6 mg PO HS PRN 07/21/20 11/07/20 History Ziprasidone [Geodon] 20 mg PO HS 07/21/20 11/07/20 History oxyCODONE-APAP 10-325MG [Percocet 1 tab PO Q6H PRN 07/21/20 11/07/20 History 10-325 mg] Fluticasone Nasal [place] [Flonase 2 spr EA NOSTRIL DAILY 08/29/20 11/07/20 History Nasal [place]] Nitroglycerin Sl Tabs [Nitrostat] 0.4 mg SUBLINGUAL ONCE PRN 10/26/20 11/07/20 History SUMAtriptan succinate [Sumatriptan 6 mg SQ ONCE PRN 10/26/20 11/07/20 History Succinate] lisinopriL 20 mg PO DAILY #30 tab 10/27/20 11/07/20 Rx Imiquimod 1 packet TOPICAL DAILY PRN 11/07/20 11/07/20 History Ondansetron HCl [Zofran] 4 mg PO Q8H PRN 11/07/20 11/07/20 History Allergies Allergy/AdvReac Type Severity Reaction Status Date / Time Penicillins Allergy Severe Anaphylaxis Verified 10/26/20 15:05 Iodinated Contrast Media Allergy Unknown Rash/Hives Verified 10/26/20 15:05 [Iodinated Contrast Media - IV Dye] egg yolk Allergy Unknown Verified 10/26/20 15:05 mustard Allergy Unknown Verified 10/26/20 15:05 Sulfa (Sulfonamide Allergy Unknown Verified 10/26/20 15:05 Antibiotics) sulfamethoxazole Allergy Rash/Hives Verified 10/26/20 15:05 [From Bactrim] trimethoprim [From Bactrim] Allergy Rash/Hives Verified 10/26/20 15:05 Physical Exam Vitals: Vital Signs Temp Pulse Resp BP Pulse Ox 11/07/20 22:36 60 16 109/67 100 11/07/20 22:18 66 15 110/75 100 11/07/20 21:42 71 13 87/57 100 11/07/20 20:23 99.0 F 95 16 136/92 98 Intake and Output 11/07/20 11/07/20 11/07/20 06:59 14:59 22:59 Intake Total 1.415 Balance 1.415 Intake: Intake, IV Titration 1.415 Amount propofoL 500 mg In Empty 1.415 Bag 1 bag @ Titrate IV . Q0M ONE Rx#:[id number] Other: Weight 72.575 kg General: Intubated female on mechanical ventilation, non toxic, no distress, appears at stated age, normal weight Derm: no unusual rashes/lesions no unusual ecchymoses, warm, dry Head: atraumatic, normocephalic, symmetric Eyes: Anicteric sclera, pupils equal round reactive to light ENT: Nose and ears atraumatic Neck: No thyromegaly, no cervical lymphadenopathy, trachea midline, supple Mouth: no lip lesion Cardiovascular: S1S2 reg, no murmur, positive posterior tibial pulse bilateral, no edema, capillary refill less than 2 seconds Lungs: CTA bilateral, no rhonchi, no rales Abdominal: soft, no appreciable organomegaly, normal bowel sounds Ext: no gross muscle atrophy, no contractures, Neuro: No obvious focal deficits noted, moving all extremities Psych: Sedated Results CBC & Chem 7: 11/07/20 20:40 11/07/20 20:40 Labs: Abnormal Lab Results - Last 24 Hours (Table) 11/07/20 11/07/20 11/07/20 Range/Units 20:40 20:40 20:40 Hct 48.4 H (34.0-46.0) % MCV 107.2 H (80.0-100.0) fL APTT 20.8 L (22.0-30.0) sec ABG pH (7.35-7.45) ABG pO2 (83-108) mmHg ABG HCO3 (21-25) mmol/L ABG O2 Saturation (94-97) % Potassium 3.4 L (3.5-5.1) mmol/L Chloride 108 H (98-107) mmol/L Carbon Dioxide 21 L (22-30) mmol/L Creatinine 1.15 H (0.52-1.04) mg/dL Plasma Lactic Acid Matthew (0.7-2.0) mmol/L Creatine Kinase 292 H (30-135) U/L Urine Opiates Screen (NotDetected) U Benzodiazepines Scrn (NotDetected) 11/07/20 11/07/20 11/07/20 Range/Units 20:40 21:31 22:24 Hct (34.0-46.0) % MCV (80.0-100.0) fL APTT (22.0-30.0) sec ABG pH 7.29 L (7.35-7.45) ABG pO2 >400 H (83-108) mmHg ABG HCO3 20 L (21-25) mmol/L ABG O2 Saturation 100.0 H (94-97) % Potassium (3.5-5.1) mmol/L Chloride (98-107) mmol/L Carbon Dioxide (22-30) mmol/L Creatinine (0.52-1.04) mg/dL Plasma Lactic Acid Matthew 6.1 H* (0.7-2.0) mmol/L Creatine Kinase (30-135) U/L Urine Opiates Screen Detected H (NotDetected) U Benzodiazepines Scrn Detected H (NotDetected) Assessment and Plan Plan: Benzodiazepine overdose -Continue mechanical ventilation with ventilator bundle -IV fluids -Psychiatry consult once patient taken off mechanical ventilation Lactic acidosis, unclear etiology -Continue the IV fluids -Monitor for resolution Hypokalemia -Replace and monitor Acute kidney injury -Continue with IV fluids -Monitor BMP Chronic conditions: Hypertension, hyperlipidemia, fibromyalgia, COPD, seizure disorder -Hold off on antiseizure medications for now -Hold off on antihypertensives in setting of borderline BP DVT prophylaxis -Heparin subq The patient is admitted with an anticipated greater than 2 midnight stay for evaluation of overdose CODE STATUS: Full Code Discussed with: Patient Anticipated discharge date: 4-[address]: Home A total of 40 minutes was spent on the care of this complex patient more than 50% of the time was spent in counseling and care coordination.
[2020-11-07] MEDS ORDERED: propofoL 50 ML IV ONE (23:47)
[2020-11-08 00:12] LABS: Glucose,Whole Blood 84 mg/dL (75-99)
[2020-11-08 01:39] LABS: ABG Base Excess -6.2 mmol/L; ABG HCO3 18 mmol/L (21-25); ABG PCO2 28 mmHg (35-45); ABG PH 7.42 (7.35-7.45); ABG PO2 235 mmHg (83-108); ABG TCO2 19 mmol/L (19-24); Allen Test Performed? Yes
[2020-11-08] MEDS: HEPARIN SODIUM,PORCINE 5,000 UNIT/ML 1 ML VIAL SQ SCH ×3 (01:42→16:07)
[2020-11-08] MEDS: SODIUM CHLORIDE 0.9% 1,000 ML IV SCH ×3 (01:43→19:38)
[2020-11-08] MEDS: POTASSIUM CHLORIDE 10 MEQ in WATER FOR INJECTION 1 100ML.BAG IVPB SCH ×4 (01:44→04:33)
[2020-11-08] MEDS ORDERED: SODIUM CHLORIDE 0.9% 1,000 ML IV ONE (02:04)
[2020-11-08 04:00] LABS: ALT 12 U/L (4-34); AST 28 U/L (14-36); African American GFR (CKD) >90 (>60 ml/min/1.73 sqM); Albumin 3.3 g/dL (3.5-5.0); Alkaline Phosphatase 77 U/L (38-126); Anion Gap 8 mmol/L; Blood Urea Nitrogen 11 mg/dL (7-17); Calcium 7.8 mg/dL (8.4-10.2); Carbon Dioxide 14 mmol/L (22-30); Chloride 116 mmol/L (98-107); Glucose 80 mg/dL (74-99); Non-African American GFR(CKD) 84 (>60 ml/min/1.73 sqM); Potassium 5.8 mmol/L (3.5-5.1); Sodium 138 mmol/L (137-145); Total Bilirubin 0.6 mg/dL (0.2-1.3); Total Protein 5.8 g/dL (6.3-8.2)
[2020-11-08 05:43] LABS: ABG Base Excess -6.2 mmol/L; ABG HCO3 19 mmol/L (21-25); ABG Oxygen Saturation 99.8 % (94-97); ABG PCO2 31 mmHg (35-45); ABG PH 7.39 (7.35-7.45); ABG PO2 140 mmHg (83-108); ABG TCO2 20 mmol/L (19-24); Allen Test Performed? Yes
[2020-11-08 07:00] LABS: Basophils % (A) 0 %; Eosinophils # (A) 0.1 k/uL (0-0.7); Eosinophils % (A) 2 %; HCT 37.5 % (34.0-46.0); HGB 12.3 gm/dL (11.4-16.0); Lymphocytes # (A) 2.3 k/uL (1.0-4.8); Lymphocytes % (A) 38 %; MCH 35.7 pg (25.0-35.0); MCHC 32.8 g/dL (31.0-37.0); Macrocytosis Marked; Mean Platelet Volume 7.6; Monocytes # (A) 0.3 k/uL (0-1.0); Monocytes % (A) 5 %; Neutrophils # (A) 3.2 k/uL (1.3-7.7); Neutrophils % (A) 54 %; Platelet Count 181 k/uL (150-450); RBC 3.44 m/uL (3.80-5.40); RDW 13.4 % (11.5-15.5)
--- NOTE | 2020-11-08 07:39 | XR ---
EXAMINATION TYPE: XR chest 1V portable DATE OF EXAM: 11/08/2020 COMPARISON: 11/07/2020 HISTORY: Postintubation TECHNIQUE: Single frontal view of the chest is obtained. FINDINGS: ET and NG tube stable. Postsurgical change overlying the cervical spine. No pleural effusi on or pneumothorax. Postsurgical change right shoulder. Arthropathy left shoulder. Suspected degree o f underlying COPD. Subsegmental changes right lung base. IMPRESSION: Right basilar atelectasis or early infiltrates slightly improved.
[2020-11-08] MEDS: NOREPINEPHRINE 4 MG in SODIUM CHLORIDE 0.9% 250 ML IV SCH (07:42)
[2020-11-08] MEDS: CHLORHEXIDINE GLUCONATE 15 ML CUP MUCOUS MEM SCH ×2 (07:45→20:00)
[2020-11-08] MEDS ORDERED: HYDROCORTISONE SUCCINATE 100 MG/2 ML VIAL IV SCH (09:00)
[2020-11-08] MEDS: PANTOPRAZOLE 40 MG/10 ML VIAL IVP SCH (09:14)
[2020-11-08] MEDS: HYDROCORTISONE SUCCINATE 100 MG/2 ML VIAL IV SCH (09:14)
--- NOTE | 2020-11-08 09:53 | P.PN ---
Subjective Progress Note Date: 11/08/20 Patient is sedated and intubated. She is on minimal vent settings. She is responsive to pain stimuli. Currently on IV propofol. No acute events overnight reported by nursing staff. Objective - Vital Signs Vital signs: Vital Signs Temp 98.6 F 11/08/20 08:00 Pulse 81 11/08/20 09:30 Resp 24 11/08/20 09:30 BP 131/81 11/08/20 09:30 Pulse Ox 98 11/08/20 09:30 Intake & Output 11/07/20 11/08/20 11/08/20 18:59 06:59 18:59 Intake Total 1901.264 193.037 Output Total 350 40 Balance 1551.264 153.037 Weight 72.6 kg Intake: IV 1800 100 Potassium Chloride 10 meq 300 In Water For Injection 1 100ml.bag @ 100 mls/hr IVPB Q1HR [facility] Rx#: [id number] Sodium Chloride 0.9% 1, 1500 100 000 ml @ 100 mls/hr IV . Q10H [facility] Rx#:[id number] Intake, IV Titration 101.264 93.037 Amount propofoL 500 mg In Empty 4.391 Bag 1 bag @ Titrate IV . Q0M [facility] Rx#:[id number] propofoL 500 mg In Empty 96.873 93.037 Bag 1 bag @ Titrate IV . Q0M [facility] Rx#:[id number] Output: Urine 350 40 Other: Voiding Method Indwelling Catheter - Exam General: The patient is sedated and intubated Eye: there is normal conjunctiva bilaterally. Neck: The neck is supple, there is no JVD. Cardiovascular: Normal S1-S2, no S3-S4, no murmurs. Respiratory: Lungs with mechanical ventilator sounds Gastrointestinal: Abdomen is soft, nontender Musculoskeletal: There is no pedal edema. Skin: Skin is warm and dry - Labs CBC & Chem 7: 11/08/20 06:40 11/08/20 06:40 Labs: Abnormal Lab Results - Last 24 Hours (Table) 11/07/20 11/07/20 11/07/20 Range/Units 20:40 20:40 20:40 RBC (3.80-5.40) m/uL Hct 48.4 H (34.0-46.0) % MCV 107.2 H (80.0-100.0) fL MCH (25.0-35.0) pg Macrocytosis APTT 20.8 L (22.0-30.0) sec ABG pH (7.35-7.45) ABG pCO2 (35-45) mmHg ABG pO2 (83-108) mmHg ABG HCO3 (21-25) mmol/L ABG O2 Saturation (94-97) % Potassium 3.4 L (3.5-5.1) mmol/L Chloride 108 H (98-107) mmol/L Carbon Dioxide 21 L (22-30) mmol/L Creatinine 1.15 H (0.52-1.04) mg/dL Plasma Lactic Acid Matthew (0.7-2.0) mmol/L Calcium (8.4-10.2) mg/dL Creatine Kinase 292 H (30-135) U/L Total Protein (6.3-8.2) g/dL Albumin (3.5-5.0) g/dL Urine Opiates Screen (NotDetected) U Benzodiazepines Scrn (NotDetected) 11/07/20 11/07/20 11/07/20 Range/Units 20:40 21:31 22:24 RBC (3.80-5.40) m/uL Hct (34.0-46.0) % MCV (80.0-100.0) fL MCH (25.0-35.0) pg Macrocytosis APTT (22.0-30.0) sec ABG pH 7.29 L (7.35-7.45) ABG pCO2 (35-45) mmHg ABG pO2 >400 H (83-108) mmHg ABG HCO3 20 L (21-25) mmol/L ABG O2 Saturation 100.0 H (94-97) % Potassium (3.5-5.1) mmol/L Chloride (98-107) mmol/L Carbon Dioxide (22-30) mmol/L Creatinine (0.52-1.04) mg/dL Plasma Lactic Acid Matthew 6.1 H* (0.7-2.0) mmol/L Calcium (8.4-10.2) mg/dL Creatine Kinase (30-135) U/L Total Protein (6.3-8.2) g/dL Albumin (3.5-5.0) g/dL Urine Opiates Screen Detected H (NotDetected) U Benzodiazepines Scrn Detected H (NotDetected) 11/08/20 11/08/20 11/08/20 Range/Units 01:03 01:33 03:34 RBC (3.80-5.40) m/uL Hct (34.0-46.0) % MCV (80.0-100.0) fL MCH (25.0-35.0) pg Macrocytosis APTT (22.0-30.0) sec ABG pH (7.35-7.45) ABG pCO2 28 L (35-45) mmHg ABG pO2 235 H (83-108) mmHg ABG HCO3 18 L (21-25) mmol/L ABG O2 Saturation 100.0 H (94-97) % Potassium 5.8 H (3.5-5.1) mmol/L Chloride 116 H (98-107) mmol/L Carbon Dioxide 14 L (22-30) mmol/L Creatinine (0.52-1.04) mg/dL Plasma Lactic Acid Matthew 4.5 H* (0.7-2.0) mmol/L Calcium 7.8 L (8.4-10.2) mg/dL Creatine Kinase (30-135) U/L Total Protein 5.8 L (6.3-8.2) g/dL Albumin 3.3 L (3.5-5.0) g/dL Urine Opiates Screen (NotDetected) U Benzodiazepines Scrn (NotDetected) 11/08/20 11/08/20 11/08/20 Range/Units 03:57 05:38 06:40 RBC 3.44 L (3.80-5.40) m/uL Hct (34.0-46.0) % MCV 109.0 H (80.0-100.0) fL MCH 35.7 H (25.0-35.0) pg Macrocytosis Marked A APTT (22.0-30.0) sec ABG pH (7.35-7.45) ABG pCO2 31 L (35-45) mmHg ABG pO2 140 H (83-108) mmHg ABG HCO3 19 L (21-25) mmol/L ABG O2 Saturation 99.8 H (94-97) % Potassium (3.5-5.1) mmol/L Chloride (98-107) mmol/L Carbon Dioxide (22-30) mmol/L Creatinine (0.52-1.04) mg/dL Plasma Lactic Acid Matthew 4.6 H* (0.7-2.0) mmol/L Calcium (8.4-10.2) mg/dL Creatine Kinase (30-135) U/L Total Protein (6.3-8.2) g/dL Albumin (3.5-5.0) g/dL Urine Opiates Screen (NotDetected) U Benzodiazepines Scrn (NotDetected) 11/08/20 Range/Units 06:40 RBC (3.80-5.40) m/uL Hct (34.0-46.0) % MCV (80.0-100.0) fL MCH (25.0-35.0) pg Macrocytosis APTT (22.0-30.0) sec ABG pH (7.35-7.45) ABG pCO2 (35-45) mmHg ABG pO2 (83-108) mmHg ABG HCO3 (21-25) mmol/L ABG O2 Saturation (94-97) % Potassium (3.5-5.1) mmol/L Chloride (98-107) mmol/L Carbon Dioxide (22-30) mmol/L Creatinine (0.52-1.04) mg/dL Plasma Lactic Acid Matthew 2.8 H* (0.7-2.0) mmol/L Calcium (8.4-10.2) mg/dL Creatine Kinase (30-135) U/L Total Protein (6.3-8.2) g/dL Albumin (3.5-5.0) g/dL Urine Opiates Screen (NotDetected) U Benzodiazepines Scrn (NotDetected) Assessment and Plan Assessment: This is a 50-year-old female with complex past medical history noted below presented to the emergency room after reportedly took 120 pills of Valium. She told the ER physician upon arrival that she took the pills ''to follow sleep''and denies any suicidal attempt. Patient was evaluated in the ER and was given activated charcoal. Her clinical condition was deteriorating in the ER and she was becoming more obtunded and eventually was sedated and intubated for airway protection. She is currently admitted to the intensive care unit for further management of her medical problems noted below. 1. Intentional benzodiazepine overdose: We will need psychiatry evaluation when extubated 2. Acute hypoxic respiratory failure secondary to altered mental status and unable to protect airways: Status post sedation and mechanical intubation. Managed by maxillofacial surgeon. 3. Underlying adrenal insufficiency with hypotension on presentation, I started patient on IV hydrocortisone for now. Transition back to Florinef and Cortef when extubated 4. Lactic acidosis secondary to hypotension, improved 5. History of hypertension: On lisinopril at home where he is currently on hold 6. Polysubstance abuse and alcohol intoxication on presentation 7. Chronic medical problems: Chronic back pain, peripheral neuropathy, seizure disorder, hyperlipidemia, underlying COPD, 8. GI and DVT prophylaxis with IV Protonix and subcu heparin Today, I reviewed her medication list and lab work results. Continue ICU care. No plan for extubation today by maxillofacial surgeon. He Works in the morning. Patient had a questionable history of adrenal insufficiency and is maintained on Cortef and Florinef at home by her PCP. She also has hypertension. During last admission I counseled her extensively to follow up with boarding house cook
--- NOTE | 2020-11-08 11:28 | P.CNPUL ---
History of Present Illness Consult date: 11/08/20 Requesting physician: Shelbie Juares Reason for consult: other Chief complaint: Valium overdose History of present illness: This is a 50-year-old female with history of multiple medical problems including seizure disorder, hypertension, COPD, adrenal insufficiency, fibromyalgia, patient presented to the ER after an intentional overdose. Upon arrival to the ER, patient told the ER physician that she took 120 tablets of 10 mg Valium about 40 minutes prior to arrival to the ER. Patient also to oxycodone, and 4 shots of vodka. Apparently the patient denied that she had suicidal ideation, but she was trying to sleep. Upon presentation to the ER, patient was slightly lethargic, however she was able to communicate with the emergency room physician. Patient was given activated charcoal, however shortly after the patient became unarousable, and she had to be intubated. Placed on mechanical ventilation, her case was discussed with poison control, patient was admitted to the ICU on mechanical ventilation. Not much history could be obtained from the patient as she is quite sedated at this point, and she is on propofol at 75 mcg/kg/m. Patient is now on assist control mode of mechanical ventilation, and she is on assist control rate of 1450, rate of 24, FiO2 35%, and PEEP of 5. Chest x-ray showed no evidence of infiltrate. ABG this morning showed a pO2 of 140 pCO2 of 31 pH of 7.39. CBC is relatively normal. Lactic acid is 1.2. Basic metabolic profile is normal. Drug screen is positive for opiates. Benzodiazepines. And also positive for alcoholic with serum alcohol level of 198. Negative for salicylates Review of Systems ROS unobtainable: due to endotracheal tube Past Medical History Past Medical History: Cancer, COPD, Fibromyalgia, GERD/Reflux, Hyperlipidemia, Hypertension, Osteoarthritis (OA), Pneumonia, Seizure Disorder, Thyroid Disorder Additional Past Medical History / Comment(s): Hpylori, arthritis in multiple joints, compression fracture L1 with chronic pain, last seizure in 2018 or 2019- pt unsure, hypothyroid, pt states she is an alcoholic and quit drinking 4 days ago, past elevated liver function tests, L breast "lump" being monitored, pt states past week she has had stomach pain after eating and past 2 weeks she has had blurry vision/bed wetting. History of Any Multi-Drug Resistant Organisms: MRSA Date of last positivie culture/infection: NOVEMBER 2012 MDRO Source:: RT EL[facility]OW Past Surgical History: Adenoidectomy, Breast Surgery, Cholecystectomy, Hysterectomy, Orthopedic Surgery, Tonsillectomy, Tubal Ligation Additional Past Surgical History / Comment(s): Bilateral breast implants, bilateral oophorectomy d/t cysts, EGDs, EGD with dilation, susu fundoplication with revision, R elbow surgery for MRSA infection, R rotator cuff repair, low back surgery (cemented), bilateral hip surgery for tendon/muscle repairs/screws in place. Cervical fusion Past Anesthesia/Blood Transfusion Reactions: No Reported Reaction, Family History of Problems w/ Anesthesia Additional Past Anesthesia/Blood Transfusion Reaction / Comment(s): MOTHER= A- FIB WITH ANESTHESIA. Past Psychological History: Anxiety, Bipolar, Depression Smoking Status: Current every day smoker Past Alcohol Use History: None Reported Past Drug Use History: None Reported - Past Family History Father Family Medical History: Eye Disorder, Hypertension Additional Family Medical History / Comment(s): Father committed suicide at the age of 58yrs. He had glaucoma Brother(s) Family Medical History: No Reported History Additional Family Medical History / Comment(s): She has one brother that is a recovered alcoholic with no other major medical problems. Sister(s) Additional Family Medical History / Comment(s): Patient has one sister that suffers from depression and anxiety Mother Family Medical History: Cancer, Dementia, Diabetes Mellitus, Deep Vein Thrombosis (DVT), Eye Disorder, Hypertension, Pulmonary Embolus Additional Family Medical History / Comment(s): Corneal transplant, breast cancer Medications and Allergies Home Medications Medication Instructions Recorded Confirmed Type Diazepam [Valium] 10 mg PO TID PRN 08/26/15 11/07/20 History estradioL [Estrace] 1 mg PO HS 07/19/16 11/07/20 History carBAMazepine [TEGretol XR] 400 mg PO HS 08/22/18 11/07/20 History Fenofibrate Nanocrystallized 48 mg PO HS 08/29/19 11/07/20 History [Fenofibrate] Albuterol Inhaler [Ventolin Hfa 2 puff INHALATION RT-Q4H PRN 07/21/20 11/07/20 History Inhaler] Fludrocortisone [Florinef] 0.1 mg PO DAILY 07/21/20 11/07/20 History Hydrocortisone [Cortef] 15 mg PO DAILY 07/21/20 11/07/20 History Sennosides [Senna] 8.6 mg PO HS PRN 07/21/20 11/07/20 History Ziprasidone [Geodon] 20 mg PO HS 07/21/20 11/07/20 History oxyCODONE-APAP 10-325MG [Percocet 1 tab PO Q6H PRN 07/21/20 11/07/20 History 10-325 mg] Fluticasone Nasal [place] [Flonase 2 spr EA NOSTRIL DAILY 08/29/20 11/07/20 History Nasal [place]] Nitroglycerin Sl Tabs [Nitrostat] 0.4 mg SUBLINGUAL ONCE PRN 10/26/20 11/07/20 History SUMAtriptan succinate [Sumatriptan 6 mg SQ ONCE PRN 10/26/20 11/07/20 History Succinate] lisinopriL 20 mg PO DAILY #30 tab 10/27/20 11/07/20 Rx Imiquimod 1 packet TOPICAL DAILY PRN 11/07/20 11/07/20 History Ondansetron HCl [Zofran] 4 mg PO Q8H PRN 11/07/20 11/07/20 History Allergies Allergy/AdvReac Type Severity Reaction Status Date / Time Penicillins Allergy Severe Anaphylaxis Verified 10/26/20 15:05 Iodinated Contrast Media Allergy Unknown Rash/Hives Verified 10/26/20 15:05 [Iodinated Contrast Media - IV Dye] egg yolk Allergy Unknown Verified 10/26/20 15:05 mustard Allergy Unknown Verified 10/26/20 15:05 Sulfa (Sulfonamide Allergy Unknown Verified 10/26/20 15:05 Antibiotics) sulfamethoxazole Allergy Rash/Hives Verified 10/26/20 15:05 [From Bactrim] trimethoprim [From Bactrim] Allergy Rash/Hives Verified 10/26/20 15:05 Physical Exam Vitals: Vital Signs Temp Pulse Resp BP Pulse Ox 11/08/20 11:00 61 24 92/55 98 11/08/20 10:30 70 24 142/82 99 11/08/20 10:00 71 24 127/80 100 11/08/20 09:30 81 24 131/81 98 11/08/20 09:00 75 24 113/73 100 11/08/20 08:30 68 24 98/67 99 11/08/20 08:00 98.6 F 68 20 155/93 100 11/08/20 07:33 100 11/08/20 07:30 71 20 134/88 100 11/08/20 07:00 75 20 111/72 100 11/08/20 06:30 66 20 84/52 98 11/08/20 06:00 66 20 87/54 98 11/08/20 05:30 67 20 92/54 99 11/08/20 05:00 63 20 89/61 100 11/08/20 04:30 70 20 119/76 100 11/08/20 04:00 98.3 F 65 20 149/112 100 11/08/20 03:30 74 20 140/98 99 11/08/20 03:00 75 20 78/68 100 11/08/20 02:30 67 20 117/76 100 11/08/20 02:00 61 20 72/47 98 11/08/20 01:30 62 20 77/49 99 11/08/20 01:00 98.4 F 68 20 142/83 99 11/07/20 22:36 60 16 109/67 100 11/07/20 22:18 66 15 110/75 100 11/07/20 21:42 71 13 87/57 100 11/07/20 20:23 99.0 F 95 16 136/92 98 Intake and Output 11/07/20 11/08/20 11/08/20 22:59 06:59 14:59 Intake Total 4.391 1896.873 643.037 Output Total 350 190 Balance 4.391 1546.873 453.037 Intake: IV 1800 500 Potassium Chloride 10 meq 300 In Water For Injection 1 100ml.bag @ 100 mls/hr IVPB Q1HR [facility] Rx#: [id number] Sodium Chloride 0.9% 1, 1500 500 000 ml @ 100 mls/hr IV . Q10H [facility] Rx#:[id number] Intake, IV Titration 4.391 96.873 143.037 Amount propofoL 500 mg In Empty 4.391 Bag 1 bag @ Titrate IV . Q0M [facility] Rx#:[id number] propofoL 500 mg In Empty 96.873 143.037 Bag 1 bag @ Titrate IV . Q0M [facility] Rx#:[id number] Output: Urine 350 190 Other: Voiding Method Indwelling Catheter Indwelling Catheter Weight 72.6 kg Physical Exam revealed a 50-year-old female in no distress, on mechanical ventilation. Head: Atraumatic, normocephalic. Endotracheal tube and orogastric tube are intact. HEENT:[Neck is supple.] [No neck masses.] [No thyromegaly.] [No JVD.] PERRLA, EOMI, nonicteric, moist mucous membranes. Chest: [Clear throughout, no crackles, no rhonchi, no wheezes.] Cardiac Exam: [Normal S1 and S2, no S3 gallop, no murmur.] Abdomen: [Soft, nontender, no megaly, no rebound, no guarding, normal bowel sounds.] Extremities: [No clubbing, no edema, no cyanosis.] Neurological Exam: Could not be assessed, patient is sedated, Psychiatric: Could not be assessed. Patient is sedated. Skin: Multiple tattoos, no rashes. Results - Laboratory Findings CBC and BMP: 11/08/20 06:40 11/08/20 06:40 ABG ABG pH 7.39 (7.35-7.45) 11/08/20 05:38 ABG pCO2 31 mmHg (35-45) L 11/08/20 05:38 ABG pO2 140 mmHg (83-108) H 11/08/20 05:38 ABG O2 Saturation 99.8 % (94-97) H 11/08/20 05:38 PT/INR, D-dimer PT 11.2 sec (9.0-12.0) 11/07/20 20:40 INR 1.1 (<1.2) 11/07/20 20:40 Abnormal lab findings: Abnormal Labs 11/07/20 11/07/20 11/07/20 20:40 20:40 20:40 RBC Hct 48.4 H MCV 107.2 H MCH Macrocytosis APTT 20.8 L ABG pH ABG pCO2 ABG pO2 ABG HCO3 ABG O2 Saturation Potassium 3.4 L Chloride 108 H Carbon Dioxide 21 L Creatinine 1.15 H Plasma Lactic Acid Matthew Calcium Creatine Kinase 292 H Total Protein Albumin Urine Opiates Screen U Benzodiazepines Scrn 11/07/20 11/07/20 11/07/20 20:40 21:31 22:24 RBC Hct MCV MCH Macrocytosis APTT ABG pH 7.29 L ABG pCO2 ABG pO2 >400 H ABG HCO3 20 L ABG O2 Saturation 100.0 H Potassium Chloride Carbon Dioxide Creatinine Plasma Lactic Acid Matthew 6.1 H* Calcium Creatine Kinase Total Protein Albumin Urine Opiates Screen Detected H U Benzodiazepines Scrn Detected H 11/08/20 11/08/20 11/08/20 01:03 01:33 03:34 RBC Hct MCV MCH Macrocytosis APTT ABG pH ABG pCO2 28 L ABG pO2 235 H ABG HCO3 18 L ABG O2 Saturation 100.0 H Potassium 5.8 H Chloride 116 H Carbon Dioxide 14 L Creatinine Plasma Lactic Acid Matthew 4.5 H* Calcium 7.8 L Creatine Kinase Total Protein 5.8 L Albumin 3.3 L Urine Opiates Screen U Benzodiazepines Scrn 11/08/20 11/08/20 11/08/20 03:57 05:38 06:40 RBC 3.44 L Hct MCV 109.0 H MCH 35.7 H Macrocytosis Marked A APTT ABG pH ABG pCO2 31 L ABG pO2 140 H ABG HCO3 19 L ABG O2 Saturation 99.8 H Potassium Chloride Carbon Dioxide Creatinine Plasma Lactic Acid Matthew 4.6 H* Calcium Creatine Kinase Total Protein Albumin Urine Opiates Screen U Benzodiazepines Scrn 11/08/20 06:40 RBC Hct MCV MCH Macrocytosis APTT ABG pH ABG pCO2 ABG pO2 ABG HCO3 ABG O2 Saturation Potassium Chloride Carbon Dioxide Creatinine Plasma Lactic Acid Matthew 2.8 H* Calcium Creatine Kinase Total Protein Albumin Urine Opiates Screen U Benzodiazepines Scrn - Diagnostic Findings Chest x-ray: image reviewed (No acute process is noted.) Assessment and Plan Assessment: Impression: Acute hypoxic failure secondary to Valium overdose requiring intubation and mechanical ventilation. Suspect intentional suicide, patient will have to be seen by psychiatry when she is extubated, in the meantime continue suicidal precautions. Acute kidney injury improving with hydration, this is most likely secondary to hypotension related to Valium overdose. And related to acute tubular necrosis. History of seizure disorder. History of fibromyalgia. History of COPD. Dyslipidemia. Recommendation: Continue ventilatory support. *Nutritional support. GI and DVT prophylaxis. Hemodynamic support if necessary Continue hydration and IV fluids. Resume home meds. Will likely wean the patient in the next 24 hours, patient will be given weaning trials, and possibly extubation in the next 24 hours. We'll continue to monitor in the ICU. Critical care time is 35 minutes Time with Patient: Greater than 30
[2020-11-09] MEDS: HEPARIN SODIUM,PORCINE 5,000 UNIT/ML 1 ML VIAL SQ SCH ×4 (00:04→23:16)
[2020-11-09] MEDS: NOREPINEPHRINE 4 MG in SODIUM CHLORIDE 0.9% 250 ML IV SCH (00:40)
[2020-11-09 04:00] LABS: Basophils % (A) 0 %; Eosinophils # (A) 0.1 k/uL (0-0.7); Eosinophils % (A) 2 %; HCT 39.5 % (34.0-46.0); HGB 12.6 gm/dL (11.4-16.0); Lymphocytes # (A) 1.8 k/uL (1.0-4.8); Lymphocytes % (A) 27 %; MCH 34.9 pg (25.0-35.0); MCV 109.3 fL (80.0-100.0); Macrocytosis Marked; Mean Platelet Volume 7.7; Monocytes # (A) 0.3 k/uL (0-1.0); Monocytes % (A) 5 %; Neutrophils # (A) 4.4 k/uL (1.3-7.7); Neutrophils % (A) 65 %; Platelet Count 147 k/uL (150-450); RBC 3.61 m/uL (3.80-5.40); RDW 14.3 % (11.5-15.5); WBC 6.7 k/uL (3.8-10.6)
[2020-11-09] MEDS: SODIUM CHLORIDE 0.9% 1,000 ML IV SCH (04:09)
[2020-11-09 04:13] LABS: ALT 12 U/L (4-34); AST 26 U/L (14-36); African American GFR (CKD) >90 (>60 ml/min/1.73 sqM); Albumin 3.1 g/dL (3.5-5.0); Alkaline Phosphatase 78 U/L (38-126); Anion Gap 6 mmol/L; Blood Urea Nitrogen 7 mg/dL (7-17); Calcium 8.4 mg/dL (8.4-10.2); Carbon Dioxide 18 mmol/L (22-30); Chloride 115 mmol/L (98-107); Glucose 93 mg/dL (74-99); Magnesium 1.7 mg/dL (1.6-2.3); Non-African American GFR(CKD) >90 (>60 ml/min/1.73 sqM); Potassium 3.3 mmol/L (3.5-5.1); Sodium 139 mmol/L (137-145); Total Bilirubin 0.4 mg/dL (0.2-1.3); Total Protein 5.6 g/dL (6.3-8.2)
[2020-11-09] MEDS ORDERED: Potassium Replacement Protocol 1 EACH MISC MISCELLANE PRN (04:22)
[2020-11-09] MEDS ORDERED: Magnesium Replacement Protocol 1 EACH MISC MISCELLANE PRN (04:24)
[2020-11-09] MEDS: MAGNESIUM SULFATE-D5W PMX 1 GM in DEXTROSE/WATER 1 100ML.BAG IVPB SCH ×2 (04:31→06:00)
[2020-11-09] MEDS: POTASSIUM CHLORIDE 10 MEQ in WATER FOR INJECTION 1 100ML.BAG IVPB SCH ×4 (04:34→11:47)
[2020-11-09 05:03] LABS: ABG Base Excess -3.8 mmol/L; ABG HCO3 21 mmol/L (21-25); ABG Oxygen Saturation 98.9 % (94-97); ABG PCO2 31 mmHg (35-45); ABG PH 7.43 (7.35-7.45); ABG PO2 100 mmHg (83-108); ABG TCO2 21 mmol/L (19-24); Allen Test Performed? Yes
--- NOTE | 2020-11-09 07:32 | XR ---
EXAMINATION TYPE: XR chest 1V portable DATE OF EXAM: 11/09/2020 Comparison: 11/08/2020 Clinical History: 50-year-old female Tube placement Findings: ET tube is satisfactory. NG tube courses below the diaphragm. ACDF hardware. Surgical clips at the GE junction. Heart normal size. Left basilar opacity has increased. Some improving aeration of the righ t base. Impression: New/increased left basilar opacity could represent a small effusion with adjacent atelectasis and/or consolidation.
[2020-11-09] MEDS: HYDROCORTISONE SUCCINATE 100 MG/2 ML VIAL IV SCH (09:03)
[2020-11-09] MEDS: CHLORHEXIDINE GLUCONATE 15 ML CUP MUCOUS MEM SCH (09:05)
[2020-11-09] MEDS: PANTOPRAZOLE 40 MG/10 ML VIAL IVP SCH (09:06)
[2020-11-09] MEDS ORDERED: DEXMEDETOMIDINE/0.9% NACL(PMX) 400 MCG in EMPTY BAG 1 BAG IV SCH (09:30)
[2020-11-09] MEDS ORDERED: SENNOSIDES 8.6 MG TAB PO PRN (11:08)
[2020-11-09] MEDS ORDERED: IMIQUIMOD TOPICAL PRN (11:08)
--- NOTE | 2020-11-09 11:11 | P.PN ---
Subjective Progress Note Date: 11/09/20 Patient is awake and alert. She was extubated this morning. She recalled taking a lot of Valium pills at home but denies any suicidal attempts. She said that she has a child with ADHD causing a lot of stress in her life. Objective - Vital Signs Vital signs: Vital Signs Temp 97.8 F 11/09/20 04:00 Pulse 61 11/09/20 07:00 Resp 24 11/09/20 07:00 BP 153/83 11/09/20 07:00 Pulse Ox 96 11/09/20 07:00 Intake & Output 11/08/20 11/09/20 11/09/20 18:59 06:59 18:59 Intake Total 1230.393 4323.556 100 Output Total 530 480 75 Balance 7794.025 0348.556 25 Weight 71.3 kg Intake: IV 1200 1300 100 Magnesium Sulfate-D5w Pmx 100 1 gm In Dextrose/Water 1 100ml.bag @ 100 mls/hr IVPB Q1H [facility] Rx#: [id number] Potassium Chloride 10 meq 100 In Water For Injection 1 100ml.bag @ 100 mls/hr IVPB Q1HR [facility] Rx#: [id number] Sodium Chloride 0.9% 1, 1200 1100 100 000 ml @ 100 mls/hr IV . Q10H [facility] Rx#:[id number] Intake, IV Titration 334.963 242.556 Amount propofoL 500 mg In Empty 334.963 242.556 Bag 1 bag @ Titrate IV . Q0M [facility] Rx#:[id number] Output: Urine 530 480 75 Other: Voiding Method Indwelling Catheter Indwelling Catheter - Exam General: The patient is awake and alert, in no distress Eye: there is normal conjunctiva bilaterally. Neck: The neck is supple, there is no JVD. Cardiovascular: Normal S1-S2, no S3-S4, no murmurs. Respiratory: Lungs clear to auscultation bilaterally Gastrointestinal: Abdomen is soft, nontender Musculoskeletal: There is no pedal edema. Neurological:. Speech is normal. Skin: Skin is warm and dry - Labs CBC & Chem 7: 11/09/20 03:36 11/09/20 03:36 Labs: Abnormal Lab Results - Last 24 Hours (Table) 11/09/20 11/09/20 11/09/20 Range/Units 03:36 03:36 04:58 RBC 3.61 L (3.80-5.40) m/uL MCV 109.3 H (80.0-100.0) fL Plt Count 147 L (150-450) k/uL Macrocytosis Marked A ABG pCO2 31 L (35-45) mmHg ABG O2 Saturation 98.9 H (94-97) % Potassium 3.3 L (3.5-5.1) mmol/L Chloride 115 H (98-107) mmol/L Carbon Dioxide 18 L (22-30) mmol/L Total Protein 5.6 L (6.3-8.2) g/dL Albumin 3.1 L (3.5-5.0) g/dL Microbiology - Last 24 Hours (Table) 11/08/20 00:50 Gram Stain - Preliminary Sputum Sputum Culture - Preliminary Assessment and Plan Assessment: This is a 50-year-old female with complex past medical history noted below presented to the emergency room after reportedly took 120 pills of Valium. She told the ER physician upon arrival that she took the pills ''to follow sleep''and denies any suicidal attempt. Patient was evaluated in the ER and was given activated charcoal. Her clinical condition was deteriorating in the ER and she was becoming more obtunded and eventually was sedated and intubated for airway protection. She is currently admitted to the intensive care unit for further management of her medical problems noted below. 1. Intentional benzodiazepine overdose: Awaiting psychiatry evaluation. 2. Acute hypoxic respiratory failure secondary to altered mental status and unable to protect airways: Status post sedation and mechanical intubation. Successfully extubated on 11/09 3. Underlying adrenal insufficiency with hypotension on presentation, I started patient on IV hydrocortisone. Will be discontinued today and Transition back to Florinef and Cortef 4. Lactic acidosis secondary to hypotension, improved 5. History of hypertension: On lisinopril at home. Restart tomorrow 6. Polysubstance abuse and alcohol intoxication on presentation 7. Chronic medical problems: Chronic back pain, peripheral neuropathy, seizure disorder, hyperlipidemia, underlying COPD, 8. Hypokalemia: Replacement per protocol 9. GI and DVT prophylaxis with IV Protonix and subcu heparin Today, I reviewed her medication list and lab work results. Continue ICU care. Bedside swallow study. Awaiting psychiatry evaluation. Patient had a questionable history of adrenal insufficiency and is maintained on Cortef and Florinef at home by her PCP. She also has hypertension. During last admission I counseled her extensively to follow up with senior sous chef
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
--- NOTE | 2020-11-09 14:29 | P.PN ---
Subjective Progress Note Date: 11/09/20 Principal diagnosis: Acute hypoxic refer failure secondary to intentional drug overdose. This is a 50-year-old female with history of multiple medical problems including seizure disorder, hypertension, COPD, adrenal insufficiency, fibromyalgia, patient presented to the ER after an intentional overdose. Upon arrival to the ER, patient told the ER physician that she took 120 tablets of 10 mg Valium about 40 minutes prior to arrival to the ER. Patient also to oxycodone, and 4 shots of vodka. Apparently the patient denied that she had suicidal ideation, but she was trying to sleep. Upon presentation to the ER, patient was slightly lethargic, however she was able to communicate with the emergency room physician. Patient was given activated charcoal, however shortly after the patient became unarousable, and she had to be intubated. Placed on mechanical ventilation, her case was discussed with poison control, patient was admitted to the ICU on mechanical ventilation. Not much history could be obtained from the patient as she is quite sedated at this point, and she is on propofol at 75 mcg/kg/m. Patient is now on assist control mode of mechanical ventilation, and she is on assist control rate of 1450, rate of 24, FiO2 35%, and PEEP of 5. Chest x-ray showed no evidence of infiltrate. ABG this morning showed a pO2 of 140 pCO2 of 31 pH of 7.39. CBC is relatively normal. Lactic acid is 1.2. Basic metabolic profile is normal. Drug screen is positive for opiates. Benzodiazepines. And also positive for alcoholic with serum alcohol level of 198. Negative for salicylates Patient was reevaluated today on 11/09/2020, patient remains in the ICU, intubate d and mechanically ventilated. She is on assist control rate of 24th volume is 450 FiO2 is 35% PEEP is 5 ABG showed a pO2 of 100 pCO2 of 31 pH of 7.43. Patient is on propofol, IV fluid is 100 mL per hour, propofol is at 40 mcg/kg/m. She is sedated, however she is arousable, and follows simple instructions. Chest x-ray showed no evidence of infiltrate. Patient was receiving enteral feeding which is presently on hold. And I have recommended all sedation, recommended a very short trial of pressure support and CPAP, and I came back and reevaluated the patient on pressure support and CPAP, she was doing extremely better, and she had good tidal volume with adequate respiratory rate in the low 20s. Hence I recommended intubating the patient while I was at bedside. All labs from today including CBC and basic metabolic profile were reviewed. Objective - Vital Signs Vital signs: Vital Signs Temp 97.8 F 11/09/20 04:00 Pulse 90 11/09/20 14:00 Resp 15 11/09/20 14:00 BP 153/84 11/09/20 14:00 Pulse Ox 97 11/09/20 14:00 Intake & Output 11/08/20 11/09/20 11/09/20 18:59 06:59 18:59 Intake Total 5417.157 6229.556 500 Output Total 441 415 9262 Balance 7255.223 2624.556 -575 Weight 71.3 kg Intake: IV 1200 1300 500 Magnesium Sulfate-D5w Pmx 100 1 gm In Dextrose/Water 1 100ml.bag @ 100 mls/hr IVPB Q1H [facility]ISA[facility] Rx#: [id number] Potassium Chloride 10 meq 100 In Water For Injection 1 100ml.bag @ 100 mls/hr IVPB Q1HR [facility]ISAEL Rx#: [id number] Sodium Chloride 0.9% 1, 1200 1100 500 000 ml @ 100 mls/hr IV . Q10H [facility]ISA[facility] Rx#:[id number] Intake, IV Titration 334.963 242.556 Amount propofoL 500 mg In Empty 334.963 242.556 Bag 1 bag @ Titrate IV . Q0M MISAEL Rx#:[id number] Output: Urine 177 350 8237 Other: Voiding Method Indwelling Catheter Indwelling Catheter Indwelling Catheter - Exam Physical Exam revealed a 50-year-old female in no distress, on mechanical ventilation. Head: Atraumatic, normocephalic. Endotracheal tube and orogastric tube are intact. HEENT:[Neck is supple.] [No neck masses.] [No thyromegaly.] [No JVD.] PERRLA, EOMI, nonicteric, moist mucous membranes. Chest: [Clear throughout, no crackles, no rhonchi, no wheezes.] Cardiac Exam: [Normal S1 and S2, no S3 gallop, no murmur.] Abdomen: [Soft, nontender, no megaly, no rebound, no guarding, normal bowel sounds.] Extremities: [No clubbing, no edema, no cyanosis.] Neurological Exam: Arousable, follows instructions, seems to be appropriate. Psychiatric: Blunted affect, adequate mental status. Skin: Multiple tattoos, no rashes. - Labs CBC & Chem 7: 11/09/20 03:36 11/09/20 03:36 Labs: Abnormal Lab Results - Last 24 Hours (Table) 11/09/20 11/09/20 11/09/20 Range/Units 03:36 03:36 04:58 RBC 3.61 L (3.80-5.40) m/uL MCV 109.3 H (80.0-100.0) fL Plt Count 147 L (150-450) k/uL Macrocytosis Marked A ABG pCO2 31 L (35-45) mmHg ABG O2 Saturation 98.9 H (94-97) % Potassium 3.3 L (3.5-5.1) mmol/L Chloride 115 H (98-107) mmol/L Carbon Dioxide 18 L (22-30) mmol/L Total Protein 5.6 L (6.3-8.2) g/dL Albumin 3.1 L (3.5-5.0) g/dL Microbiology - Last 24 Hours (Table) 11/08/20 00:50 Gram Stain - Preliminary Sputum Sputum Culture - Preliminary Assessment and Plan Assessment: Impression: Acute hypoxic failure secondary to Valium overdose requiring intubation and mechanical ventilation. Suspect intentional suicide, patient will have to be seen by psychiatry when she is extubated, in the meantime continue suicidal precautions. Acute kidney injury improving with hydration, this is most likely secondary to hypotension related to Valium overdose. And related to acute tubular necrosis. History of seizure disorder. History of fibromyalgia. History of COPD. Dyslipidemia. Recommendation: Will give the patient a trial of weaning with pressure support and CPAP. GI and DVT prophylaxis. Continue hydration and IV fluids. Continue suicidal precautions Psychiatric consult after extubation today. Will extubate after a short trial of pressure support and CPAP. We'll continue to monitor in the ICU for at least the next 24 hours. Critical care time is over 30 minutes Time with Patient: Greater than 30
[2020-11-09] MEDS: oxyCODONE-APAP 10-325MG 1 EACH TAB PO PRN ×2 (15:42→21:10)
--- NOTE | 2020-11-09 16:16 | CDI ---
Documentation Clarification Form Date: 11/09/2020 03:40:37 PM From: Radha Lowry RN, CCDS Admit Date: 11/07/2020 10:22:00 PM Patient Name: Renay Meneses Visit Number: [id number] Discharge Date: ATTENTION: The Clinical Documentation Specialists (CDI) and [facility] Coding Staff appreciate your assistance in clarifying documentation. Please respond to the clarification below the line at the bottom and electronically sign. The CDI & [facility] Coding staff will review the response and follow-up if needed. Please note: Queries are made part of the Legal Health Record. If you have any questions, please contact the author of this message via ITS. Dr. Cesar Snow Altered Mental Status was documented in the in the progress note on 11/08 and subsequent progress notes. Please render your opinion on the etiology of mental status change. History/Risk Factors: Alcohol abuse, Bipolar, Depression, Anxiety, Current every day smoker, Family history of suicide (Father) Clinical Indicators: 50-year-old female present to ED on 11/07 states she took 12o pills of Valium 10 mg, 1 pill of oxycodone and 4 shots of alcohol 40 minutes prior to arrival to ED. Patient was somnolent initially but became much more somnolent, and at 21:42 barely responding to painful stimulus. She became obtunded and difficult to arouse. 11/07 at 21:42 vital signs: 87/57 71 13 100 % Mechanical ventilation 11/07 22:25 Intubated admit to ICU 11/07 20:40 Labs WBC 8.1, Chloride 108, CO2 21, BUN 11, CR 1.15, Lactic acid 6.1, Alcohol level is 198; Urine drug screen: Positive for opiates and benzodiazepines Treatment: ICU Monitoring 1:1 Sitter (Suicide Precautions, Continuous) Mechanical ventilation (11/07-11/09) Neurological assessment per protocol In your professional opinion, please clarify the etiology of the Altered Mental Status, if known. Toxic Encephalopathy Metabolic Encephalopathy Other condition (please specify) Unable to determine (Last Revision: December 2017) MTDD
[2020-11-09] MEDS ORDERED: carBAMazepine 400 MG TAB.ER.12H PO SCH (21:00)
[2020-11-09] MEDS ORDERED: ZIPRASIDONE 20 MG CAP PO SCH (21:00)
[2020-11-09] MEDS ORDERED: FENOFIBRATE 54 MG TAB PO SCH (21:00)
[2020-11-10 03:59] LABS: Basophils % (A) 0 %; Eosinophils # (A) 0.1 k/uL (0-0.7); Eosinophils % (A) 1 %; HCT 39.7 % (34.0-46.0); HGB 12.9 gm/dL (11.4-16.0); Lymphocytes # (A) 1.7 k/uL (1.0-4.8); Lymphocytes % (A) 23 %; MCH 35.3 pg (25.0-35.0); MCHC 32.5 g/dL (31.0-37.0); MCV 108.7 fL (80.0-100.0); Macrocytosis Moderate; Mean Platelet Volume 8.7; Monocytes # (A) 0.4 k/uL (0-1.0); Monocytes % (A) 5 %; Neutrophils # (A) 5.2 k/uL (1.3-7.7); Neutrophils % (A) 70 %; Platelet Count 135 k/uL (150-450); RBC 3.66 m/uL (3.80-5.40); WBC 7.4 k/uL (3.8-10.6)
[2020-11-10] MEDS: oxyCODONE-APAP 10-325MG 1 EACH TAB PO PRN ×2 (04:01→14:28)
[2020-11-10 04:09] LABS: ALT 56 U/L (4-34); AST 183 U/L (14-36); African American GFR (CKD) >90 (>60 ml/min/1.73 sqM); Albumin 3.2 g/dL (3.5-5.0); Alkaline Phosphatase 164 U/L (38-126); Anion Gap 7 mmol/L; Blood Urea Nitrogen 3 mg/dL (7-17); Calcium 8.8 mg/dL (8.4-10.2); Carbon Dioxide 23 mmol/L (22-30); Chloride 112 mmol/L (98-107); Glucose 91 mg/dL (74-99); Magnesium 1.9 mg/dL (1.6-2.3); Non-African American GFR(CKD) >90 (>60 ml/min/1.73 sqM); Potassium 3.2 mmol/L (3.5-5.1); Sodium 142 mmol/L (137-145); Total Bilirubin 1.5 mg/dL (0.2-1.3); Total Protein 5.9 g/dL (6.3-8.2)
[2020-11-10] MEDS: MAGNESIUM SULFATE-D5W PMX 1 GM in DEXTROSE/WATER 1 100ML.BAG IVPB SCH ×2 (04:27→05:36)
[2020-11-10] MEDS: POTASSIUM CHLORIDE ER 20 MEQ TAB.ER PO SCH ×2 (04:27→05:36)
--- NOTE | 2020-11-10 08:39 | XR ---
EXAMINATION TYPE: XR chest 1V portable DATE OF EXAM: 11/10/2020 COMPARISON: 11/09/2020 INDICATION: Tube placement TECHNIQUE: Single frontal view of the chest is obtained. FINDINGS: The heart size is normal. The pulmonary vasculature is normal. Minimal infiltrate is at the left base. Correlate for some developing atelectasis. Some mild developi ng atelectasis may be along the right diaphragm. Previous endotracheal tube and nasogastric tube is been removed. IMPRESSION: 1. Mild by basilar infiltrates likely atelectasis.
[2020-11-10] MEDS: HEPARIN SODIUM,PORCINE 5,000 UNIT/ML 1 ML VIAL SQ SCH (08:59)
[2020-11-10] MEDS: PANTOPRAZOLE 40 MG/10 ML VIAL IVP SCH (09:00)
[2020-11-10] MEDS ORDERED: FLUDROCORTISONE 0.1 MG TAB PO SCH (09:00)
[2020-11-10] MEDS ORDERED: lisinopriL 20 MG TAB PO SCH (09:00)
[2020-11-10 09:36] VITALS: BP 119/77; PULSE 78; RESP 16
[2020-11-10 09:37] VITALS: TEMP 97.7
--- NOTE | 2020-11-10 10:32 | P.DS ---
Providers Date of admission: 11/07/20 22:22 Expected date of discharge: 11/10/20 Attending physician: Shelbie Juares MD Consults: 11/07/20 22:22 Consult Physician Stat Consulting Provider: Hui Gregory Consult Reason/Comments: Medication overdose; altered mental status; intubated Do you want consulting provider notified?: Already Contacted 11/09/20 09:27 Consult Physician Stat Consulting Provider: aJtinder Rodriguez Consult Reason/Comments: Suicide, Overdose Do you want consulting provider notified?: Yes Primary care physician: Stated None Hospital Course: Patient is medically stable to be transferred to the psych unit today. This is a 50-year-old female with complex past medical history noted below presented to the emergency room after reportedly took 120 pills of Valium. She told the ER physician upon arrival that she took the pills ''to follow sleep''and denies any suicidal attempt. Patient was evaluated in the ER and was given activated charcoal. Her clinical condition was deteriorating in the ER and she was becoming more obtunded and eventually was sedated and intubated for airway protection. She is currently admitted to the intensive care unit for further management of her medical problems noted below. 1. Intentional benzodiazepine overdose: Seen and evaluated by psychiatry. Plan to transfer to inpatient psych for further management 2. Acute hypoxic respiratory failure secondary to altered mental status and unable to protect airways: Status post sedation and mechanical intubation. Successfully extubated on 11/09 chest x-ray this morning showed mild atelectasis 3. Underlying adrenal insufficiency with hypotension on presentation, I started patient on IV hydrocortisone. Will be discontinued today and Transition back to Florinef and Cortef 4. Lactic acidosis secondary to hypotension, improved 5. History of hypertension: On lisinopril 6. Polysubstance abuse and alcohol intoxication on presentation 7. Acute toxic encephalopathy on presentation secondary to benzodiazepine overdose. Now resolved. 8. Chronic medical problems: Chronic back pain, peripheral neuropathy, seizure disorder, hyperlipidemia, underlying COPD, After prolonged discussion with the patient regarding the necessity to follow-up with endocrinology to clarify her adrenal insufficiency diagnosis that was made by a physician horticultural nursery assistant in the outpatient setting. Patient Condition at Discharge: Stable Plan - Discharge Summary New Discharge Prescriptions: Continue estradioL [Estrace] 1 mg PO HS carBAMazepine [TEGretol XR] 400 mg PO HS Fenofibrate Nanocrystallized [Fenofibrate] 48 mg PO HS Ziprasidone [Geodon] 20 mg PO HS Albuterol Inhaler [Ventolin Hfa Inhaler] 2 puff INHALATION RT-Q4H PRN PRN Reason: Shortness Of Breath oxyCODONE-APAP 10-325MG [Percocet 10-325 mg] 1 tab PO Q6H PRN PRN Reason: Pain Sennosides [Senna] 8.6 mg PO HS PRN PRN Reason: Constipation Hydrocortisone [Cortef] 15 mg PO DAILY Fludrocortisone [Florinef] 0.1 mg PO DAILY Nitroglycerin Sl Tabs [Nitrostat] 0.4 mg SUBLINGUAL ONCE PRN PRN Reason: Chest Pain SUMAtriptan succinate [Sumatriptan Succinate] 6 mg SQ ONCE PRN PRN Reason: Migraine Headache lisinopriL 20 mg PO DAILY #30 tab Ondansetron HCl [Zofran] 4 mg PO Q8H PRN PRN Reason: Nausea And Vomiting Discontinued Diazepam [Valium] 10 mg PO TID PRN PRN Reason: Anxiety Fluticasone Nasal Platina [Flonase Nasal Platina] 2 spr EA NOSTRIL DAILY Imiquimod 1 packet TOPICAL DAILY PRN PRN Reason: Skin Irritation Discharge Medication List estradioL [Estrace] 1 mg PO HS 07/19/16 [History] carBAMazepine [TEGretol XR] 400 mg PO HS 08/22/18 [History] Fenofibrate Nanocrystallized [Fenofibrate] 48 mg PO HS 08/29/19 [History] Albuterol Inhaler [Ventolin Hfa Inhaler] 2 puff INHALATION RT-Q4H PRN 07/21/20 [History] Fludrocortisone [Florinef] 0.1 mg PO DAILY 07/21/20 [History] Hydrocortisone [Cortef] 15 mg PO DAILY 07/21/20 [History] Sennosides [Senna] 8.6 mg PO HS PRN 07/21/20 [History] Ziprasidone [Geodon] 20 mg PO HS 07/21/20 [History] oxyCODONE-APAP 10-325MG [Percocet 10-325 mg] 1 tab PO Q6H PRN 07/21/20 [History] Nitroglycerin Sl Tabs [Nitrostat] 0.4 mg SUBLINGUAL ONCE PRN 10/26/20 [History] SUMAtriptan succinate [Sumatriptan Succinate] 6 mg SQ ONCE PRN 10/26/20 [History] lisinopriL 20 mg PO DAILY #30 tab 10/27/20 [Rx] Ondansetron HCl [Zofran] 4 mg PO Q8H PRN 11/07/20 [History] Discharge Disposition: TRANSFER TO PSYCH HOSP/UNIT
--- NOTE | 2020-11-10 13:04 | P.PN ---
Subjective Progress Note Date: 11/10/20 Principal diagnosis: Acute hypoxic refer failure secondary to intentional drug overdose. This is a 50-year-old female with history of multiple medical problems including seizure disorder, hypertension, COPD, adrenal insufficiency, fibromyalgia, patient presented to the ER after an intentional overdose. Upon arrival to the ER, patient told the ER physician that she took 120 tablets of 10 mg Valium about 40 minutes prior to arrival to the ER. Patient also to oxycodone, and 4 shots of vodka. Apparently the patient denied that she had suicidal ideation, but she was trying to sleep. Upon presentation to the ER, patient was slightly lethargic, however she was able to communicate with the emergency room physician. Patient was given activated charcoal, however shortly after the patient became unarousable, and she had to be intubated. Placed on mechanical ventilation, her case was discussed with poison control, patient was admitted to the ICU on mechanical ventilation. Not much history could be obtained from the patient as she is quite sedated at this point, and she is on propofol at 75 mcg/kg/m. Patient is now on assist control mode of mechanical ventilation, and she is on assist control rate of 1450, rate of 24, FiO2 35%, and PEEP of 5. Chest x-ray showed no evidence of infiltrate. ABG this morning showed a pO2 of 140 pCO2 of 31 pH of 7.39. CBC is relatively normal. Lactic acid is 1.2. Basic metabolic profile is normal. Drug screen is positive for opiates. Benzodiazepines. And also positive for alcoholic with serum alcohol level of 198. Negative for salicylates Patient was reevaluated today on 11/09/2020, patient remains in the ICU, intubate d and mechanically ventilated. She is on assist control rate of 24th volume is 450 FiO2 is 35% PEEP is 5 ABG showed a pO2 of 100 pCO2 of 31 pH of 7.43. Patient is on propofol, IV fluid is 100 mL per hour, propofol is at 40 mcg/kg/m. She is sedated, however she is arousable, and follows simple instructions. Chest x-ray showed no evidence of infiltrate. Patient was receiving enteral feeding which is presently on hold. And I have recommended all sedation, recommended a very short trial of pressure support and CPAP, and I came back and reevaluated the patient on pressure support and CPAP, she was doing extremely better, and she had good tidal volume with adequate respiratory rate in the low 20s. Hence I recommended intubating the patient while I was at bedside. All labs from today including CBC and basic metabolic profile were reviewed. Patient was reevaluated today on 11/10/2020, patient was extubated yesterday, tolerated the extubation quite well. Today the patient is doing great, asymptomatic, no cough no wheezing no shortness of breath no fever no chills, patient is wondering if she could be discharged home. Chest x-ray showed minimal atelectasis at the left lower lobe, patient does not have any symptoms to suggest pneumonia. Her CBC is normal. Basic metabolic profile is normal. She had slightly elevated liver enzymes. Otherwise no major medical issues noted today. Hence I will transfer the patient out of the ICU to a regular medical floor, and should be followed by internal medicine and by psychiatry may have to be even transferred to the psychiatric suero down the line. Objective - Vital Signs Vital signs: Vital Signs Temp 97.7 F 11/10/20 08:00 Pulse 78 11/10/20 09:00 Resp 16 11/10/20 09:00 BP 119/77 11/10/20 09:00 Pulse Ox 97 11/10/20 09:00 Intake & Output 11/09/20 11/10/20 11/10/20 18:59 06:59 18:59 Intake Total 1220 240 Output Total 1974 1715 650 Balance -1075 -495 -410 Weight 73.5 kg Intake: IV 900 660 0 Sodium Chloride 0.9% 1, 900 660 0 000 ml @ 100 mls/hr IV . Q10H MISAEL Rx#:[id number] Intake, IV Titration 200 Amount Magnesium Sulfate-D5w Pmx 200 1 gm In Dextrose/Water 1 100ml.bag @ 100 mls/hr IVPB Q1H MISAEL Rx#: [id number] Oral 360 240 Output: Urine 1974 1715 650 Other: Voiding Method Indwelling Catheter Indwelling Catheter Indwelling Catheter - Exam Physical Exam revealed a 50-year-old female in no distress, on room air. Head: Atraumatic, normocephalic. HEENT:[Neck is supple.] [No neck masses.] [No thyromegaly.] [No JVD.] PERRLA, EOMI, nonicteric, moist mucous membranes. Chest: [Clear throughout, no crackles, no rhonchi, no wheezes.] Cardiac Exam: [Normal S1 and S2, no S3 gallop, no murmur.] Abdomen: [Soft, nontender, no megaly, no rebound, no guarding, normal bowel sounds.] Extremities: [No clubbing, no edema, no cyanosis.] Neurological Exam: Alert and oriented 3 focal deficits Psychiatric: Normal mood, affect and normal mental status examination Skin: Multiple tattoos, no rashes. - Labs CBC & Chem 7: 11/10/20 03:16 11/10/20 10:36 Labs: Abnormal Lab Results - Last 24 Hours (Table) 11/09/20 11/10/20 11/10/20 Range/Units 17:44 03:16 03:16 RBC 3.66 L (3.80-5.40) m/uL MCV 108.7 H (80.0-100.0) fL MCH 35.3 H (25.0-35.0) pg Plt Count 135 L (150-450) k/uL Potassium 3.3 L 3.2 L (3.5-5.1) mmol/L Chloride 112 H (98-107) mmol/L BUN 3 L (7-17) mg/dL Total Bilirubin 1.5 H (0.2-1.3) mg/dL AST 183 H (14-36) U/L ALT 56 H (4-34) U/L Alkaline Phosphatase 164 H (38-126) U/L Creatine Kinase (30-135) U/L Total Protein 5.9 L (6.3-8.2) g/dL Albumin 3.2 L (3.5-5.0) g/dL 11/10/20 Range/Units 03:16 RBC (3.80-5.40) m/uL MCV (80.0-100.0) fL MCH (25.0-35.0) pg Plt Count (150-450) k/uL Potassium (3.5-5.1) mmol/L Chloride (98-107) mmol/L BUN (7-17) mg/dL Total Bilirubin (0.2-1.3) mg/dL AST (14-36) U/L ALT (4-34) U/L Alkaline Phosphatase (38-126) U/L Creatine Kinase 285 H (30-135) U/L Total Protein (6.3-8.2) g/dL Albumin (3.5-5.0) g/dL Microbiology - Last 24 Hours (Table) 11/08/20 00:50 Gram Stain - Final Sputum Sputum Culture - Final Assessment and Plan Assessment: Impression: Acute hypoxic failure secondary to Valium overdose requiring intubation and mechanical ventilation. Extubated on 11/09/2020. Tolerated the extubation well. Suspect intentional suicide, seen by psychiatry. History of seizure disorder. History of fibromyalgia. History of COPD. Dyslipidemia. Recommendation: Continue present supportive care measures Continue suicidal precautions Transfer patient out of the ICU to a regular medical floor Psychiatry to decide whether the patient needs to be admitted to psychiatry. Will follow on when necessary basis. Patient will be seen by internal medicine and psychiatry for her other medical and psychiatric issues. Time with Patient: Less than 30
== END 2020-11-10 14:42 | DRG 917 ==
LOC: EC 20:22 → 2SICU 22:22
PROVIDERS: ADMIT Internal Medicine; ATTEND Internal Medicine
PROC: 0BH17EZ Insertion of Endotracheal Airway into Trachea, Via Natural or Artificial Opening (ICD-10-PCS; principal; 2020-11-10)
PROC: 5A1945Z Respiratory Ventilation, 24-96 Consecutive Hours (ICD-10-PCS; principal; 2020-11-10)
DX: T42.4X2A Poisoning by benzodiazepines, intentional self-harm, initial encounter (principal); G92 Toxic encephalopathy; J96.01 Acute respiratory failure with hypoxia; N17.0 Acute kidney failure with tubular necrosis; E27.40 Unspecified adrenocortical insufficiency; E87.2 Acidosis; J98.11 Atelectasis; E03.9 Hypothyroidism, unspecified; E78.5 Hyperlipidemia, unspecified; E87.6 Hypokalemia; F17.200 Nicotine dependence, unspecified, uncomplicated; Z20.822 Contact with and (suspected) exposure to COVID-19; F31.9 Bipolar disorder, unspecified; F41.9 Anxiety disorder, unspecified; G40.909 Epilepsy, unspecified, not intractable, without status epilepticus; G62.9 Polyneuropathy, unspecified; G89.29 Other chronic pain; M54.9 Dorsalgia, unspecified; I10 Essential (primary) hypertension; J44.9 Chronic obstructive pulmonary disease, unspecified; M79.7 Fibromyalgia; Y90.6 Blood alcohol level of 120-199 mg/100 ml; F10.229 Alcohol dependence with intoxication, unspecified; Z79.52 Long term (current) use of systemic steroids; Z79.899 Other long term (current) drug therapy; Z80.3 Family history of malignant neoplasm of breast; Z82.49 Family history of ischemic heart disease and other diseases of the circulatory system; Z83.3 Family history of diabetes mellitus; Z86.14 Personal history of Methicillin resistant Staphylococcus aureus infection; Z90.710 Acquired absence of both cervix and uterus; Z98.82 Breast implant status
CPT/HCPCS: 31500; 36415; 36600; 71045; 80053; 80143; 80156; 80179; 80306; 80320; 81025; 82075; 82550; 82805; 83605; 83735; 84132; 85025; 85610; 85730; 87070; 87205; 87635; 93005; 94002; 94003; 96361; 96365; 96366; 96375; 99291

== ENCOUNTER 2020-11-10 14:03 | Inpatient (IN) | payer MEDICARE, OTHER ==
[2020-11-10] MEDS ORDERED: SENNOSIDES 8.6 MG TAB PO PRN (14:27)
[2020-11-10] MEDS ORDERED: ALBUTEROL HFA INHALER INHALATION PRN (14:27)
[2020-11-10] MEDS ORDERED: ZIPRASIDONE 20 MG VIAL IM PRN (14:31)
[2020-11-10] MEDS ORDERED: LORazepam 1 MG TAB PO PRN (14:31)
[2020-11-10] MEDS ORDERED: MAGNESIUM HYDROXIDE 2,400 MG/10 ML CUP PO PRN (14:31)
[2020-11-10] MEDS ORDERED: MAG HYDROX/AL HYDROX/SIMETH 30 ML CUP PO PRN (14:31)
[2020-11-10] MEDS ORDERED: ACETAMINOPHEN TAB 325 MG TAB PO PRN (14:31)
[2020-11-10] MEDS ORDERED: LORazepam 2 MG/ML INJ IM PRN (14:35)
[2020-11-10] MEDS: NICOTINE 14MG/24HR PATCH TRANSDERM SCH (16:04)
[2020-11-10] MEDS ORDERED: FENOFIBRATE NANOCRYSTALLIZED 48 MG PO SCH (21:00)
[2020-11-10] MEDS ORDERED: ZIPRASIDONE 20 MG CAP PO SCH (21:00)
[2020-11-10] MEDS: carBAMazepine 400 MG TAB.ER.12H PO SCH (21:08)
[2020-11-10] MEDS: BENZOCAINE/MENTHOL LOZENG 1 EACH LOZENGE MUCOUS MEM PRN (23:28)
[2020-11-11] MEDS: oxyCODONE-APAP 5-325MG 1 EACH TAB PO PRN ×2 (02:00→12:49)
--- NOTE | 2020-11-11 02:00 | P.CONS ---
History of Present Illness - Reason for Consult Consult date: 11/10/20 - History of Present Illness Patient is a 50-year-old female with a PMH of adrenal insufficiency, polysubstance abuse, hypertension, peripheral neuropathy, seizure disorder, hyperlipidemia, COPD who was brought into the emergency room after an intentional overdose of Valium. The patient subsequently developed encephalopathy and was placed on mechanical ventilation. She was discharged from the medical service earlier today and was transferred to mental health unit where she was seen and evaluated. She reported mild sore throat but denied any additional complaints. She denied chest discomfort, shortness of breath of fever, chills, nausea, vomiting, abdominal pain, diarrhea. Review of Systems Pertinent positives and negatives as discussed in HPI, a complete review of systems was performed and all other systems are negative. Past Medical History Past Medical History: Cancer, COPD, Fibromyalgia, GERD/Reflux, Hyperlipidemia, Hypertension, Osteoarthritis (OA), Pneumonia, Seizure Disorder, Thyroid Disorder Additional Past Medical History / Comment(s): Hpylori, arthritis in multiple joints, compression fracture L1 with chronic pain, last seizure in 2018 or 2019- pt unsure, hypothyroid, pt states she is an alcoholic and quit drinking 4 days ago, past elevated liver function tests, L breast "lump" being monitored, pt states past week she has had stomach pain after eating and past 2 weeks she has had blurry vision/bed wetting. History of Any Multi-Drug Resistant Organisms: MRSA Year Discovered:: NOVEMBER 2012 MDRO Source:: RT ELBOW Past Surgical History: Adenoidectomy, Breast Surgery, Cholecystectomy, Hysterectomy, Orthopedic Surgery, Tonsillectomy, Tubal Ligation Additional Past Surgical History / Comment(s): Bilateral breast implants, bilateral oophorectomy d/t cysts, EGDs, EGD with dilation, susu fundoplication with revision, R elbow surgery for MRSA infection, R rotator cuff repair, low back surgery (cemented), bilateral hip surgery for tendon/muscle repairs/screws in place. Cervical fusion Past Anesthesia/Blood Transfusion Reactions: No Reported Reaction, Family History of Problems w/ Anesthesia Additional Past Anesthesia/Blood Transfusion Reaction / Comm: MOTHER= A-FIB WITH ANESTHESIA. Past Psychological History: Anxiety, Bipolar, Depression Smoking Status: Current every day smoker Past Alcohol Use History: None Reported Past Drug Use History: None Reported - Past Family History Father Family Medical History: Eye Disorder, Hypertension Additional Family Medical History / Comment(s): Father committed suicide at the age of 58yrs. He had glaucoma Brother(s) Family Medical History: No Reported History Additional Family Medical History / Comment(s): She has one brother that is a recovered alcoholic with no other major medical problems. Sister(s) Additional Family Medical History / Comment(s): Patient has one sister that suffers from depression and anxiety Mother Family Medical History: Cancer, Dementia, Diabetes Mellitus, Deep Vein Thrombosis (DVT), Eye Disorder, Hypertension, Pulmonary Embolus Additional Family Medical History / Comment(s): Corneal transplant, breast cancer Medications and Allergies Home Medications Medication Instructions Recorded Confirmed Type estradioL [Estrace] 1 mg PO HS 07/19/16 11/10/20 History carBAMazepine [TEGretol XR] 400 mg PO HS 08/22/18 11/10/20 History Fenofibrate Nanocrystallized 48 mg PO HS 08/29/19 11/10/20 History [Fenofibrate] Albuterol Inhaler [Ventolin Hfa 2 puff INHALATION RT-Q4H PRN 07/21/20 11/10/20 History Inhaler] Fludrocortisone [Florinef] 0.1 mg PO DAILY 07/21/20 11/10/20 History Hydrocortisone [Cortef] 15 mg PO DAILY 07/21/20 11/10/20 History Sennosides [Senna] 8.6 mg PO HS PRN 07/21/20 11/10/20 History Ziprasidone [Geodon] 20 mg PO HS 07/21/20 11/10/20 History oxyCODONE-APAP 10-325MG [Percocet 1 tab PO Q6H PRN 07/21/20 11/10/20 History 10-325 mg] Nitroglycerin Sl Tabs [Nitrostat] 0.4 mg SUBLINGUAL ONCE PRN 10/26/20 11/10/20 History SUMAtriptan succinate [Sumatriptan 6 mg SQ ONCE PRN 10/26/20 11/10/20 History Succinate] lisinopriL 20 mg PO DAILY #30 tab 10/27/20 11/10/20 Rx Ondansetron HCl [Zofran] 4 mg PO Q8H PRN 11/07/20 11/10/20 History Allergies Allergy/AdvReac Type Severity Reaction Status Date / Time Penicillins Allergy Severe Anaphylaxis Verified 11/10/20 15:53 Iodinated Contrast Media Allergy Unknown Rash/Hives Verified 11/10/20 15:53 [Iodinated Contrast Media - IV Dye] egg yolk Allergy Unknown Verified 11/10/20 15:53 mustard Allergy Unknown Verified 11/10/20 15:53 Sulfa (Sulfonamide Allergy Unknown Verified 11/10/20 15:53 Antibiotics) sulfamethoxazole Allergy Rash/Hives Verified 11/10/20 15:53 [From Bactrim] trimethoprim [From Bactrim] Allergy Rash/Hives Verified 11/10/20 15:53 Physical Exam Vitals: Vital Signs Temp Pulse Resp BP 11/10/20 15:11 98.7 F 74 14 159/99 Intake and Output 11/10/20 11/10/20 11/10/20 06:59 14:59 22:59 Other: Weight 73.5 kg General: non toxic, no distress, appears at stated age, normal weight Derm: no unusual rashes/lesions no unusual ecchymoses, warm, dry Head: atraumatic, normocephalic, symmetric Eyes: EOMI, no lid lag, anicteric sclera, pupils equal round reactive to light ENT: Nose and ears atraumatic, no thrush, no pharyngeal erythema Neck: No thyromegaly, no cervical lymphadenopathy, trachea midline, supple Mouth: no lip lesion, mucus membranes moist Cardiovascular: S1S2 reg, no murmur, positive posterior tibial pulse bilateral, no edema, capillary refill less than 2 seconds Lungs: CTA bilateral, no rhonchi, no rales , no accessory muscle use Abdominal: soft, nontender to palpation, no guarding, no appreciable organomegaly, normal bowel sounds Ext: no gross muscle atrophy, muscle strength 5 out of 5 in all 4 extremities grossly, no contractures, Neuro: CN II-XI grossly intact, light touch intact all 4 extremities, finger to nose within normal limits, Psych: Alert, oriented, appropriate affect Assessment and Plan Plan: Abnormal LFTs, unclear etiology -Monitor for now Hypokalemia -Resolved Macrocytosis -Check folate and B12 levels Depression with suicidal ideation -As per psychiatry Chronic conditions: Hypertension, COPD, seizure disorder, hyperlipidemia, renal insufficiency -Continue home meds
[2020-11-11 07:27] LABS: ALT 44 U/L (4-34); AST 57 U/L (14-36); African American GFR (CKD) >90 (>60 ml/min/1.73 sqM); Alkaline Phosphatase 153 U/L (38-126); Anion Gap 10 mmol/L; Blood Urea Nitrogen 6 mg/dL (7-17); Calcium 9.6 mg/dL (8.4-10.2); Carbon Dioxide 23 mmol/L (22-30); Chloride 107 mmol/L (98-107); Glucose 97 mg/dL (74-99); Non-African American GFR(CKD) >90 (>60 ml/min/1.73 sqM); Potassium 3.9 mmol/L (3.5-5.1); Sodium 140 mmol/L (137-145); Total Bilirubin 0.8 mg/dL (0.2-1.3); Total Protein 6.8 g/dL (6.3-8.2)
[2020-11-11] MEDS ORDERED: NON FORMULARY DRUG (Hydrocortisone [Cortef] 5 MG Tablet) PO SCH (09:00)
[2020-11-11] MEDS: NICOTINE POLACRILEX 2 MG GUM BUCCAL PRN ×2 (09:13→12:49)
[2020-11-11] MEDS: lisinopriL 20 MG TAB PO SCH (09:13)
[2020-11-11] MEDS: HYDROCORTISONE 10 MG TAB PO SCH (09:13)
[2020-11-11] MEDS: NICOTINE 14MG/24HR PATCH TRANSDERM SCH (09:14)
[2020-11-11] MEDS: FLUDROCORTISONE 0.1 MG TAB PO SCH (09:15)
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
[2020-11-11 20:24] LABS: Folate, Serum 3.3 ng/mL
[2020-11-11] MEDS ORDERED: FENOFIBRATE 54 MG TAB PO SCH (21:00)
[2020-11-11] MEDS: carBAMazepine 400 MG TAB.ER.12H PO SCH (21:14)
[2020-11-11] MEDS: BENZOCAINE/MENTHOL LOZENG 1 EACH LOZENGE MUCOUS MEM PRN (22:06)
[2020-11-12] MEDS: oxyCODONE-APAP 5-325MG 1 EACH TAB PO PRN (01:33)
[2020-11-12 04:35] VITALS: BP 166/101; PULSE 91; RESP 18; TEMP 97.8
[2020-11-12] MEDS: BENZOCAINE/MENTHOL LOZENG 1 EACH LOZENGE MUCOUS MEM PRN (06:10)
[2020-11-12] MEDS: lisinopriL 20 MG TAB PO SCH (08:36)
[2020-11-12] MEDS: FLUDROCORTISONE 0.1 MG TAB PO SCH (08:36)
[2020-11-12] MEDS: HYDROCORTISONE 10 MG TAB PO SCH (09:24)
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
[2020-11-13] MEDS ORDERED: HYDROCORTISONE 10 MG TAB PO SCH (09:00)
== END 2020-11-12 12:11 | disposition home or self-care (01) | DRG 885 ==
LOC: 3MHU 14:50
PROVIDERS: ADMIT Psychiatry & Neurology Psychiatry; ATTEND Psychiatry & Neurology Psychiatry
DX: F31.30 Bipolar disorder, current episode depressed, mild or moderate severity, unspecified (principal); E27.40 Unspecified adrenocortical insufficiency; G40.909 Epilepsy, unspecified, not intractable, without status epilepticus; J44.9 Chronic obstructive pulmonary disease, unspecified; F10.20 Alcohol dependence, uncomplicated; T42.4X2A Poisoning by benzodiazepines, intentional self-harm, initial encounter; F41.9 Anxiety disorder, unspecified; D75.89 Other specified diseases of blood and blood-forming organs; F43.10 Post-traumatic stress disorder, unspecified; G62.9 Polyneuropathy, unspecified; M79.7 Fibromyalgia; E03.9 Hypothyroidism, unspecified; G89.29 Other chronic pain; E78.5 Hyperlipidemia, unspecified; I10 Essential (primary) hypertension; K21.9 Gastro-esophageal reflux disease without esophagitis; M15.9 Polyosteoarthritis, unspecified; N39.44 Nocturnal enuresis; F17.210 Nicotine dependence, cigarettes, uncomplicated; Z71.6 Tobacco abuse counseling; Z79.52 Long term (current) use of systemic steroids; Z79.899 Other long term (current) drug therapy; Z87.311 Personal history of (healed) other pathological fracture; Z86.14 Personal history of Methicillin resistant Staphylococcus aureus infection; Z87.01 Personal history of pneumonia (recurrent); Z90.89 Acquired absence of other organs; Z90.49 Acquired absence of other specified parts of digestive tract; Z87.19 Personal history of other diseases of the digestive system; Z87.2 Personal history of diseases of the skin and subcutaneous tissue; Z87.42 Personal history of other diseases of the female genital tract; Z98.51 Tubal ligation status; Z98.82 Breast implant status; Z90.710 Acquired absence of both cervix and uterus; Z98.1 Arthrodesis status; Z90.722 Acquired absence of ovaries, bilateral; Z87.39 Personal history of other diseases of the musculoskeletal system and connective tissue; Z98.890 Other specified postprocedural states; Z91.041 Radiographic dye allergy status; Z91.012 Allergy to eggs; Z88.0 Allergy status to penicillin; Z88.2 Allergy status to sulfonamides; Z91.018 Allergy to other foods; Z81.8 Family history of other mental and behavioral disorders; Z83.511 Family history of glaucoma; Z82.49 Family history of ischemic heart disease and other diseases of the circulatory system; Z80.3 Family history of malignant neoplasm of breast; Z83.3 Family history of diabetes mellitus; Z83.2 Family history of diseases of the blood and blood-forming organs and certain disorders involving the immune mechanism
CPT/HCPCS: 80053; 82607; 82746

== ENCOUNTER → 2020-11-20 | Outpatient (CLI) | payer MEDICARE, OTHER ==
[~2020-11-20] MED LIST changes: -COSYNTROPIN 0.25 MG VIAL IVP NR; +REGADENOSON 0.4 MG/5 ML SYRINGE IV PRN; -SODIUM CHLORIDE 0.9% 500 ML 500 ML in EMPTY BAG 1 BAG IV PRN
--- NOTE | 2020-11-20 12:36 | P.STRESS ---
- Stress Test Note Stress Test Results/Findings: Exam Performed: NM stress lexiscan cardiolite Exam Date: 11/20/20 Reason for Exam: CP Height: 5 ft 11 in Weight: 160 kg Protocol: LEXISCAN CARDIOLITE STRESS Stage: NA Duration of Exercise: NA Resting Heart Rate: 65 Resting Blood Pressure: 184/108 Maximum Achieved Heart Rate: 123 Maximum Achieved Blood Pressure: 188/108 85% PMHR: 145 100% PMHR: 171 METS: NA Technologist Comment: Stress Test Results/Findings: This is a 50-year-old female with history of hypertension, hypercholesterolemia, smoking history and family history being evaluated for cardiac status. Stress data: Baseline EKG showed sinus rhythm with normal NJ interval and QRS duration. Blood pressure at rest is 184 and 8 with pulse rate of 65. A standard dose of Lexiscan was infused. EKGs taken during or after infusion did not reveal any changes from the baseline. Final impression: #1. Negative Lexiscan stress test #2. Report on the nuclear images to be provided by radiologist .
--- NOTE | 2020-11-21 12:01 | NM ---
EXAMINATION TYPE: NM stress lexiscan cardiolite DATE OF EXAM: 11/20/2020 COMPARISON: NONE HISTORY: Pericardial chest pain. Abnormal EKG. History of hypertension and tobacco use. History of hy percholesteremia with family history of coronary artery disease in mom. History of COPD and emphysema . TECHNIQUE: After the intravenous administration of 9.2 mCi Tc 99m Sestamibi - Cardiolite resting SPE CT images acquired 45 minutes post injection. The patient received 0.4mg Lexiscan, 25.7 mCi Tc 99m Sestamibi - Stress images obtained [address] injection FINDINGS: Review of stress and rest SPECT images demonstrates no distinct perfusion abnormality. Gated analysi s shows normal wall motion with an estimated left ventricular ejection fraction of 60 %. IMPRESSION: No scintigraphic evidence for reversible ischemia.
== END | disposition home or self-care (01) ==
LOC: RADNMMAIN 07:33
PROVIDERS: ATTEND Internal Medicine
DX: R07.2 Precordial pain (principal)
CPT/HCPCS: 93017; 78452; A9500; J2785

== ENCOUNTER 2020-11-28 20:44 | Emergency (ER) | payer MEDICARE, OTHER ==
[2020-11-28 20:58] VITALS: TEMP 98.7
[2020-11-28] MEDS ORDERED: HYDROmorphone 1 MG/ML 1 ML SYRINGE IVP STA (21:28)
[2020-11-28] MEDS ORDERED: ONDANSETRON 4 MG/2 ML VIAL IVP STA (21:28)
[2020-11-28] MEDS ORDERED: SODIUM CHLORIDE 0.9% 1,000 ML IV STA (21:28)
--- NOTE | 2020-11-28 21:32 | ED ---
General Adult HPI - General Chief complaint: Recheck/Abnormal Lab/Rx Stated complaint: Hypertension Time Seen by Provider: 11/28/20 21:12 Source: patient, EMS, RN notes reviewed Mode of arrival: EMS Limitations: no limitations - History of Present Illness Initial comments: Patient is a 50-year-old female presents emergency complaining of headache. She noted earlier her blood pressure was elevated at her primary care. She notes that she is on lisinopril 20 mg and 0.1 mg clonidine as needed if her blood pressure goes above 170. She notes that she regular monitor his blood pressure is taking all her medications as prescribed. She notes that she does follow-up with medical and scientific illustrator for some adrenal issues this for the first time. She did get a cortisone shot yesterday and since then she's noted that her blood pressure is constant and fluctuating. She notes that her normal blood pressure usually sits around 160/100. He notes that currently she just has a headache with some nausea. She denied any chest pain shortness of breath headache vomiting diarrhea constipation fever fatigue chills. - Related Data Home Medications Medication Instructions Recorded Confirmed estradioL [Estrace] 1 mg PO HS 07/19/16 11/10/20 Fenofibrate Nanocrystallized 48 mg PO HS 08/29/19 11/10/20 [Fenofibrate] Fludrocortisone [Florinef] 0.1 mg PO DAILY 07/21/20 11/10/20 Hydrocortisone [Cortef] 15 mg PO DAILY 07/21/20 11/10/20 Sennosides [Senna] 8.6 mg PO HS PRN 07/21/20 11/10/20 oxyCODONE-APAP 10-325MG [Percocet 1 tab PO Q6H PRN 07/21/20 11/10/20 10-325 mg] Nitroglycerin Sl Tabs [Nitrostat] 0.4 mg SUBLINGUAL ONCE PRN 10/26/20 11/10/20 SUMAtriptan succinate [Sumatriptan 6 mg SQ ONCE PRN 10/26/20 11/10/20 Succinate] Ondansetron HCl [Zofran] 4 mg PO Q8H PRN 11/07/20 11/10/20 Previous Rx's Medication Instructions Recorded lisinopriL 20 mg PO DAILY #30 tab 10/27/20 ARIPiprazole [Abilify] 20 mg PO HS 30 Days tab 11/12/20 Benzocaine/Menthol Lozeng [Cepacol 1 each MUCOUS MEM Q4HR PRN 5 Days 11/12/20 lozenge] lozenge Nicotine Polacrilex [Nicorette] 2 mg BUCCAL Q4HR PRN 30 Days gum 11/12/20 carBAMazepine [TEGretol XR] 400 mg PO HS 30 Days tab.er.12h 11/12/20 Allergies Allergy/AdvReac Type Severity Reaction Status Date / Time Penicillins Allergy Severe Anaphylaxis Verified 11/10/20 15:53 Iodinated Contrast Media Allergy Unknown Rash/Hives Verified 11/10/20 15:53 [Iodinated Contrast Media - IV Dye] egg yolk Allergy Unknown Verified 11/10/20 15:53 mustard Allergy Unknown Verified 11/10/20 15:53 Sulfa (Sulfonamide Allergy Unknown Verified 11/10/20 15:53 Antibiotics) sulfamethoxazole Allergy Rash/Hives Verified 11/10/20 15:53 [From Bactrim] trimethoprim [From Bactrim] Allergy Rash/Hives Verified 11/10/20 15:53 Review of Systems ROS Statement: Those systems with pertinent positive or pertinent negative responses have been documented in the HPI. ROS Other: All systems not noted in ROS Statement are negative. Past Medical History Past Medical History: Cancer, COPD, Fibromyalgia, GERD/Reflux, Hyperlipidemia, Hypertension, Osteoarthritis (OA), Pneumonia, Seizure Disorder, Thyroid Disorder Additional Past Medical History / Comment(s): Hpylori, arthritis in multiple joints, compression fracture L1 with chronic pain, last seizure in 2018 or 2019- pt unsure, hypothyroid, pt states she is an alcoholic and quit drinking 4 days ago, past elevated liver function tests, L breast "lump" being monitored, pt states past week she has had stomach pain after eating and past 2 weeks she has had blurry vision/bed wetting. History of Any Multi-Drug Resistant Organisms: MRSA Date of last positivie culture/infection: NOVEMBER 2012 MDRO Source:: RT ELBOW Past Surgical History: Adenoidectomy, Breast Surgery, Cholecystectomy, H ysterectomy, Orthopedic Surgery, Tonsillectomy, Tubal Ligation Additional Past Surgical History / Comment(s): Bilateral breast implants, bilateral oophorectomy d/t cysts, EGDs, EGD with dilation, susu fundoplication with revision, R elbow surgery for MRSA infection, R rotator cuff repair, low back surgery (cemented), bilateral hip surgery for tendon/muscle repairs/screws in place. Cervical fusion Past Anesthesia/Blood Transfusion Reactions: No Reported Reaction, Family History of Problems w/ Anesthesia Additional Past Anesthesia/Blood Transfusion Reaction / Comment(s): MOTHER= A- FIB WITH ANESTHESIA. Past Psychological History: Anxiety, Bipolar, Depression Smoking Status: Current every day smoker Past Alcohol Use History: Occasional Past Drug Use History: None Reported - Past Family History Father Family Medical History: Eye Disorder, Hypertension Additional Family Medical History / Comment(s): Father committed suicide at the age of 58yrs. He had glaucoma Brother(s) Family Medical History: No Reported History Additional Family Medical History / Comment(s): She has one brother that is a recovered alcoholic with no other major medical problems. Sister(s) Additional Family Medical History / Comment(s): Patient has one sister that suffers from depression and anxiety Mother Family Medical History: Cancer, Dementia, Diabetes Mellitus, Deep Vein Thrombosis (DVT), Eye Disorder, Hypertension, Pulmonary Embolus Additional Family Medical History / Comment(s): Corneal transplant, breast cancer General Exam Limitations: no limitations General appearance: alert, in no apparent distress Head exam: Present: atraumatic, normocephalic, normal inspection Eye exam: Present: normal appearance, PERRL, EOMI. Absent: scleral icterus, conjunctival injection, periorbital swelling ENT exam: Present: normal exam, mucous membranes moist Neck exam: Present: normal inspection. Absent: tenderness, meningismus, lymphadenopathy Respiratory exam: Present: normal lung sounds bilaterally. Absent: respiratory distress, wheezes, rales, rhonchi, stridor Cardiovascular Exam: Present: regular rate, normal rhythm, normal heart sounds. Absent: systolic murmur, diastolic murmur, rubs, gallop, clicks GI/Abdominal exam: Present: soft, normal bowel sounds. Absent: distended, tenderness, guarding, rebound, rigid Extremities exam: Present: normal inspection, full ROM, normal capillary refill. Absent: tenderness, pedal edema, joint swelling, calf tenderness Neurological exam: Present: alert, oriented X3, CN II-XII intact Expanded Speech: Present: fluid speech Cranial nerves: EOM's Intact: Normal, Tongue Deviation: Normal, Nystagmus: Normal Sensory exam: Upper Extremity Light Touch: Normal, Lower Extremity Light Touch: Normal Motor strength exam: RUE: 5, LUE: 5, RLE: 5, LLE: 5 Psychiatric exam: Present: normal affect, normal mood Skin exam: Present: warm, dry, intact, normal color. Absent: rash Course Vital Signs 11/28/20 20:46 Temperature 98.7 F Pulse Rate 73 Respiratory 18 Rate Blood Pressure 185/96 O2 Sat by Pulse 99 Oximetry EKG Findings - EKG Comments: EKG Findings:: Ventricular rate 55 bpm, OH interval her physical signs, QRS duration 84 ms, QT/QTC 406/38 ms, PRT axes 49/81/1. Sinus bradycardia, septal infarct, age undetermined, T-wave abnormality, consider anterior ischemia, abnormal ECG. Medical Decision Making - Medical Decision Making 50-year-old female complaining of headache with nausea, after an elevation in blood pressure before arriving in the emergency department. Basic labs, EKG, 1 L normal saline, 1 mg of Dilaudid, 4 mg of Zofran ordered. Labs unremarkable. Case discussed with Dr. Brooks, decided patient discharged home with follow-up medical and scientific illustrator and primary care. - Lab Data Result diagrams: 11/28/20 21:37 11/28/20 21:37 Lab Results 11/28/20 11/28/20 Range/Units 21:37 21:37 WBC 6.2 (3.8-10.6) k/uL RBC 3.91 (3.80-5.40) m/uL Hgb 14.1 (11.4-16.0) gm/dL Hct 42.2 (34.0-46.0) % MCV 107.9 H (80.0-100.0) fL MCH 35.9 H (25.0-35.0) pg MCHC 33.3 (31.0-37.0) g/dL RDW 13.2 (11.5-15.5) % Plt Count 244 (150-450) k/uL MPV 8.0 Neutrophils % 57 % Lymphocytes % 35 % Monocytes % 5 % Eosinophils % 1 % Basophils % 1 % Neutrophils # 3.5 (1.3-7.7) k/uL Lymphocytes # 2.2 (1.0-4.8) k/uL Monocytes # 0.3 (0-1.0) k/uL Eosinophils # 0.1 (0-0.7) k/uL Basophils # 0.0 (0-0.2) k/uL Macrocytosis Moderate Sodium 136 L (137-145) mmol/L Potassium 4.0 (3.5-5.1) mmol/L Chloride 106 (98-107) mmol/L Carbon Dioxide 24 (22-30) mmol/L Anion Gap 6 mmol/L BUN 13 (7-17) mg/dL Creatinine 0.63 (0.52-1.04) mg/dL Est GFR (CKD-EPI)AfAm >90 (>60 ml/min/1.73 sqM) Est GFR (CKD-EPI)NonAf >90 (>60 ml/min/1.73 sqM) Glucose 95 (74-99) mg/dL Calcium 9.0 (8.4-10.2) mg/dL Total Bilirubin 0.5 (0.2-1.3) mg/dL AST 24 (14-36) U/L ALT 11 (4-34) U/L Alkaline Phosphatase 71 (38-126) U/L Total Protein 6.6 (6.3-8.2) g/dL Albumin 3.9 (3.5-5.0) g/dL - EKG Data -: EKG Interpreted by Me EKG shows normal: sinus rhythm Rate: bradycardia EKG Comments: Ventricular rate 55 bpm, OH interval her physical signs, QRS duration 84 ms, QT/QTC 406/38 ms, PRT axes 49/81/1. Sinus bradycardia, septal infarct, age undetermined, T-wave abnormality, consider anterior ischemia, abnormal ECG. Disposition Clinical Impression: Headache, Hypertension Disposition: HOME SELF-CARE Condition: Stable Instructions (If sedation given, give patient instructions): General Headache (ED) Additional Instructions: Please return to the Emergency Department if symptoms worsen or any other concerns. Follow-up primary care in 2-4 days. Follow-up with medical and scientific illustrator as planned on . Continue to monitor blood pressure at home and take at home medications as prescribed. Is patient prescribed a controlled substance at d/c from ED?: No Referrals: Maeve Berkowitz NPC [REFERRING] - 1-2 days Time of Disposition: 23:15
[2020-11-28 22:08] LABS: Basophils % (A) 1 %; Eosinophils # (A) 0.1 k/uL (0-0.7); Eosinophils % (A) 1 %; HCT 42.2 % (34.0-46.0); HGB 14.1 gm/dL (11.4-16.0); Lymphocytes # (A) 2.2 k/uL (1.0-4.8); Lymphocytes % (A) 35 %; MCH 35.9 pg (25.0-35.0); MCHC 33.3 g/dL (31.0-37.0); MCV 107.9 fL (80.0-100.0); Macrocytosis Moderate; Monocytes # (A) 0.3 k/uL (0-1.0); Monocytes % (A) 5 %; Neutrophils # (A) 3.5 k/uL (1.3-7.7); Neutrophils % (A) 57 %; Platelet Count 244 k/uL (150-450); RBC 3.91 m/uL (3.80-5.40); RDW 13.2 % (11.5-15.5); WBC 6.2 k/uL (3.8-10.6)
[2020-11-28 22:47] LABS: ALT 11 U/L (4-34); AST 24 U/L (14-36); African American GFR (CKD) >90 (>60 ml/min/1.73 sqM); Albumin 3.9 g/dL (3.5-5.0); Alkaline Phosphatase 71 U/L (38-126); Anion Gap 6 mmol/L; Blood Urea Nitrogen 13 mg/dL (7-17); Carbon Dioxide 24 mmol/L (22-30); Chloride 106 mmol/L (98-107); Glucose 95 mg/dL (74-99); Non-African American GFR(CKD) >90 (>60 ml/min/1.73 sqM); Sodium 136 mmol/L (137-145); Total Bilirubin 0.5 mg/dL (0.2-1.3); Total Protein 6.6 g/dL (6.3-8.2)
[2020-11-28 23:28] VITALS: BP 118/70; PULSE 69; RESP 16
== END 2020-11-28 23:32 | disposition home or self-care (01) ==
LOC: EC 20:44
DX: R51.9 Headache, unspecified (principal); I10 Essential (primary) hypertension; J44.9 Chronic obstructive pulmonary disease, unspecified; E78.5 Hyperlipidemia, unspecified; M19.90 Unspecified osteoarthritis, unspecified site; F17.200 Nicotine dependence, unspecified, uncomplicated; G40.909 Epilepsy, unspecified, not intractable, without status epilepticus; F41.9 Anxiety disorder, unspecified; F31.9 Bipolar disorder, unspecified; Z90.49 Acquired absence of other specified parts of digestive tract; Z90.710 Acquired absence of both cervix and uterus; Z90.09 Acquired absence of other part of head and neck; Z98.51 Tubal ligation status
CPT/HCPCS: 36415; 93005; 80053; 85025; 99284; 96365; 96375; 96361; J2405; J1170

== ENCOUNTER 2021-02-08 14:35 | Emergency (ER) | payer MEDICARE, OTHER ==
[2021-02-08 14:42] VITALS: RESP 18; TEMP 98
[2021-02-08] MEDS ORDERED: HYDROmorphone 1 MG/ML 1 ML SYRINGE IVP STA (14:51)
[2021-02-08] MEDS ORDERED: SODIUM CHLORIDE 0.9% 1,000 ML IV STA (14:51)
--- NOTE | 2021-02-08 14:56 | ED ---
Seizure HPI - General Chief Complaint: Seizure Stated Complaint: seizure Time Seen by Provider: 02/08/21 14:43 Source: patient, RN notes reviewed Mode of arrival: ambulatory Limitations: no limitations - History of Present Illness Initial Comments: Patient is a 50-year-old female that presents to emergency department with neck pain, lethargic. She notes that she had a seizure on Monday while sitting on toilet woke up on the ground sat back on the toilet finished business. She notes that she walked over to her primary care after that and they stated that she needed a computed tomography scan and EEG. She notes that she tried to show up to the computed tomography scan place and was informed that she needed an appointment so now she is at the emergency room. She notes that she is worried about the hardware in her neck from a surgery last April. She does note that her blood pressure usually runs high and that she is experiencing no new symptoms. She notes that after she has a seizure she does have some diarrhea which is normal for her. She denied hitting her head, bladder or bowel incontinence/retention, weakness numbness tingling chest pain shortness of breath headache nausea vomiting diarrhea constipation fever fatigue chills - Related Data Home Medications Medication Instructions Recorded Confirmed estradioL [Estrace] 1 mg PO HS 07/19/16 02/08/21 Hydrocortisone [Cortef] 10 mg PO DAILY 07/21/20 02/08/21 Sennosides [Senna] 8.6 mg PO HS PRN 07/21/20 02/08/21 oxyCODONE-APAP 10-325MG [Percocet 1 tab PO Q6H PRN 07/21/20 02/08/21 10-325 mg] Nitroglycerin Sl Tabs [Nitrostat] 0.4 mg SUBLINGUAL Q5M PRN 10/26/20 02/08/21 SUMAtriptan succinate [Sumatriptan 6 mg SQ ONCE PRN 10/26/20 02/08/21 Succinate] Ondansetron HCl [Zofran] 4 mg PO Q6H PRN 11/07/20 02/08/21 Diazepam [Valium] 10 mg PO Q8H PRN 02/08/21 02/08/21 Gabapentin 600 mg PO TID 02/08/21 02/08/21 Hydrocortisone [Cortef] 5 mg PO HS 02/08/21 02/08/21 diphenhydrAMINE [Benadryl] 50 mg PO Q6H PRN 02/08/21 02/08/21 Previous Rx's Medication Instructions Recorded ARIPiprazole [Abilify] 20 mg PO HS 30 Days tab 11/12/20 carBAMazepine [TEGretol XR] 400 mg PO HS 30 Days tab.er.12h 11/12/20 Allergies Allergy/AdvReac Type Severity Reaction Status Date / Time Penicillins Allergy Severe Anaphylaxis Verified 02/08/21 16:41 Iodinated Contrast Media Allergy Unknown Rash/Hives Verified 02/08/21 16:41 [Iodinated Contrast Media - IV Dye] egg yolk Allergy Unknown Verified 02/08/21 16:41 mustard Allergy Unknown Verified 02/08/21 16:41 Sulfa (Sulfonamide Allergy Unknown Verified 02/08/21 16:41 Antibiotics) sulfamethoxazole Allergy Rash/Hives Verified 02/08/21 16:41 [From Bactrim] trimethoprim [From Bactrim] Allergy Rash/Hives Verified 02/08/21 16:41 Review of Systems ROS Statement: Those systems with pertinent positive or pertinent negative responses have been documented in the HPI. ROS Other: All systems not noted in ROS Statement are negative. Past Medical History Past Medical History: Cancer, COPD, Fibromyalgia, GERD/Reflux, Hyperlipidemia, Hypertension, Osteoarthritis (OA), Pneumonia, Seizure Disorder, Thyroid Disorder Additional Past Medical History / Comment(s): Hpylori, arthritis in multiple joints, compression fracture L1 with chronic pain, last seizure in 2018 or 2019- pt unsure, hypothyroid, pt states she is an alcoholic and quit drinking 4 days ago, past elevated liver function tests, L breast "lump" being monitored, pt states past week she has had stomach pain after eating and past 2 weeks she has had blurry vision/bed wetting. History of Any Multi-Drug Resistant Organisms: MRSA Date of last positivie culture/infection: NOVEMBER 2012 MDRO Source:: RT ELBOW Past Surgical History: Adenoidectomy, Breast Surgery, Cholecystectomy, Hy sterectomy, Orthopedic Surgery, Tonsillectomy, Tubal Ligation Additional Past Surgical History / Comment(s): Bilateral breast implants, bilateral oophorectomy d/t cysts, EGDs, EGD with dilation, susu fundoplication with revision, R elbow surgery for MRSA infection, R rotator cuff repair, low back surgery (cemented), bilateral hip surgery for tendon/muscle repairs/screws in place. Cervical fusion Past Anesthesia/Blood Transfusion Reactions: No Reported Reaction, Family History of Problems w/ Anesthesia Additional Past Anesthesia/Blood Transfusion Reaction / Comment(s): MOTHER= A- FIB WITH ANESTHESIA. Past Psychological History: Anxiety, Bipolar, Depression Smoking Status: Current every day smoker Past Alcohol Use History: Occasional Past Drug Use History: None Reported - Past Family History Father Family Medical History: Eye Disorder, Hypertension Additional Family Medical History / Comment(s): Father committed suicide at the age of 58yrs. He had glaucoma Brother(s) Family Medical History: No Reported History Additional Family Medical History / Comment(s): She has one brother that is a recovered alcoholic with no other major medical problems. Sister(s) Additional Family Medical History / Comment(s): Patient has one sister that suffers from depression and anxiety Mother Family Medical History: Cancer, Dementia, Diabetes Mellitus, Deep Vein Thrombosis (DVT), Eye Disorder, Hypertension, Pulmonary Embolus Additional Family Medical History / Comment(s): Corneal transplant, breast cancer General Exam Limitations: no limitations General appearance: alert, in no apparent distress Head exam: Present: atraumatic, normocephalic, normal inspection Eye exam: Present: normal appearance, PERRL, EOMI. Absent: scleral icterus, conjunctival injection, periorbital swelling Neck exam: Present: normal inspection, tenderness (Left posterior neck down to shoulder blade). Absent: meningismus, lymphadenopathy Respiratory exam: Present: normal lung sounds bilaterally. Absent: respiratory distress, wheezes, rales, rhonchi, stridor Cardiovascular Exam: Present: regular rate, normal rhythm, normal heart sounds. Absent: systolic murmur, diastolic murmur, rubs, gallop, clicks GI/Abdominal exam: Present: soft, normal bowel sounds. Absent: distended, tenderness, guarding, rebound, rigid Extremities exam: Present: normal inspection, full ROM, normal capillary refill. Absent: tenderness, pedal edema, joint swelling, calf tenderness Neurological exam: Present: alert, oriented X3, CN II-XII intact Psychiatric exam: Present: normal affect, normal mood Skin exam: Present: warm, dry, intact, normal color. Absent: rash Course Vital Signs 02/08/21 14:38 Temperature 98 F Pulse Rate 96 Respiratory 18 Rate Blood Pressure 136/95 O2 Sat by Pulse 97 Oximetry Medical Decision Making - Medical Decision Making 30-year-old female one post seizure worried about hardware placement in her neck. Labs, EKG, monitoring and evaluation advisor, 1 L normal saline, 1 mg of Dilaudid, CT of brain and C-spine ordered CT negative for any acute process. Labs unremarkable, mild dehydration. Case discussed with Dr. Rocha, patient can discharge home with follow-up to primary care. - Lab Data Result diagrams: 02/08/21 15:13 02/08/21 15:13 Lab Results 02/08/21 02/08/21 02/08/21 Range/Units 15:13 15:13 16:21 WBC 6.8 (3.8-10.6) k/uL RBC 3.74 L (3.80-5.40) m/uL Hgb 13.6 (11.4-16.0) gm/dL Hct 39.6 (34.0-46.0) % MCV 105.8 H (80.0-100.0) fL MCH 36.3 H (25.0-35.0) pg MCHC 34.3 (31.0-37.0) g/dL RDW 12.7 (11.5-15.5) % Plt Count 182 (150-450) k/uL MPV 7.4 Neutrophils % 62 % Lymphocytes % 30 % Monocytes % 4 % Eosinophils % 3 % Basophils % 0 % Neutrophils # 4.2 (1.3-7.7) k/uL Lymphocytes # 2.0 (1.0-4.8) k/uL Monocytes # 0.3 (0-1.0) k/uL Eosinophils # 0.2 (0-0.7) k/uL Basophils # 0.0 (0-0.2) k/uL Macrocytosis Slight Sodium 139 (137-145) mmol/L Potassium 3.9 (3.5-5.1) mmol/L Chloride 110 H (98-107) mmol/L Carbon Dioxide 23 (22-30) mmol/L Anion Gap 6 mmol/L BUN 19 H (7-17) mg/dL Creatinine 0.81 (0.52-1.04) mg/dL Est GFR (CKD-EPI)AfAm >90 (>60 ml/min/1.73 sqM) Est GFR (CKD-EPI)NonAf 86 (>60 ml/min/1.73 sqM) Glucose 96 (74-99) mg/dL Calcium 8.9 (8.4-10.2) mg/dL Total Bilirubin 0.4 (0.2-1.3) mg/dL AST 19 (14-36) U/L ALT 10 (4-34) U/L Alkaline Phosphatase 89 (38-126) U/L Total Protein 6.3 (6.3-8.2) g/dL Albumin 3.8 (3.5-5.0) g/dL Urine Color Light Yellow Urine Appearance Clear (Clear) Urine pH 5.5 (5.0-8.0) Ur Specific Ulysses 1.013 (1.001-1.035) Urine Protein Negative (Negative) Urine Glucose (UA) Negative (Negative) Urine Ketones Negative (Negative) Urine Blood Negative (Negative) Urine Nitrite Negative (Negative) Urine Bilirubin Negative (Negative) Urine Urobilinogen <2.0 (<2.0) mg/dL Ur Leukocyte Esterase Negative (Negative) - EKG Data -: EKG Interpreted by Ga EKG shows normal: sinus rhythm Rate: normal EKG Comments: Ventricular rate 78 bpm, MD interval 166 ms, QRS duration 92 ms, QT/QTC 380/433 ms, PRT axes 42/3/35. Normal sinus rhythm normal ECG. - Radiology Data Radiology results: report reviewed, image reviewed CT of the brain and C-spine: There is no acute fracture dislocation evident cervical spine. No acute intracranial hemorrhage or midline shift seen. Disposition Clinical Impression: Fall, Generalized seizure Disposition: HOME SELF-CARE Condition: Stable Instructions (If sedation given, give patient instructions): Recurrent Seizures in Adults (ED) Additional Instructions: Please return to the Emergency Department if symptoms worsen or any other concerns. Follow-up with primary care in next 1-2 days. Can take [id number] pain medication for symptom relief. Continue take at home medications as prescribed. Is patient prescribed a controlled substance at d/c from ED?: No Referrals: Ja Boyer MD [Primary Care Provider] - 1-2 days Time of Disposition: 17:13
[2021-02-08 15:17] LABS: Basophils % (A) 0 %; Eosinophils # (A) 0.2 k/uL (0-0.7); Eosinophils % (A) 3 %; HCT 39.6 % (34.0-46.0); HGB 13.6 gm/dL (11.4-16.0); Lymphocytes % (A) 30 %; MCH 36.3 pg (25.0-35.0); MCHC 34.3 g/dL (31.0-37.0); MCV 105.8 fL (80.0-100.0); Macrocytosis Slight; Mean Platelet Volume 7.4; Monocytes # (A) 0.3 k/uL (0-1.0); Monocytes % (A) 4 %; Neutrophils # (A) 4.2 k/uL (1.3-7.7); Neutrophils % (A) 62 %; Platelet Count 182 k/uL (150-450); RBC 3.74 m/uL (3.80-5.40); RDW 12.7 % (11.5-15.5); WBC 6.8 k/uL (3.8-10.6)
[2021-02-08 15:26] LABS: ALT 10 U/L (4-34); AST 19 U/L (14-36); African American GFR (CKD) >90 (>60 ml/min/1.73 sqM); Albumin 3.8 g/dL (3.5-5.0); Alkaline Phosphatase 89 U/L (38-126); Anion Gap 6 mmol/L; Blood Urea Nitrogen 19 mg/dL (7-17); Calcium 8.9 mg/dL (8.4-10.2); Carbon Dioxide 23 mmol/L (22-30); Chloride 110 mmol/L (98-107); Glucose 96 mg/dL (74-99); Non-African American GFR(CKD) 86 (>60 ml/min/1.73 sqM); Potassium 3.9 mmol/L (3.5-5.1); Sodium 139 mmol/L (137-145); Total Bilirubin 0.4 mg/dL (0.2-1.3); Total Protein 6.3 g/dL (6.3-8.2)
--- NOTE | 2021-02-08 15:37 | CT ---
EXAMINATION TYPE: CT brain cspine wo con DATE OF EXAM: 02/08/2021 COMPARISON: CT brain October 26, 2020. MRI cervical spine October 02, 2020 HISTORY: Seizure and fall injury with headache and neck pain. CT DLP: 1318.4 mGycm. Automated Exposure Control for Dose Reduction was Utilized. TECHNIQUE: CT scan of the head and cervical spine are performed without contrast. FINDINGS: There is no acute intracranial hemorrhage or midline shift identified. Mild to moderate v entricular and sulcal prominence greatest over bilateral frontal lobes. Storm-white matter differenti ation maintained. The calvarium is intact. The globes are intact and the visualized sinuses are clear . Cervical spine is visualized in its entirety from C1 through upper thoracic levels and demonstrates s light grade 1 retrolisthesis C4 on C5. Metallic bridging material inferior C4 level through superior C6 vertebra. Anterior fusion plate C4-C7 vertebra. Additional metallic disc material C6-C7 level. Spi nal canal grossly preserved. Thyroid gland within normal limits. Lung apices show emphysematous duke e without pneumothorax. IMPRESSION: 1. There is no acute fracture or dislocation evident in the cervical spine. 2. No acute intracranial hemorrhage or midline shift is seen.
[2021-02-08 16:38] LABS: Appearance,Urine Clear (Clear); Bilirubin,Urine Negative (Negative); Blood,Urine Negative (Negative); Color,Urine Light Yellow; Glucose,Urine (UA) Negative (Negative); Ketones,Urine Negative (Negative); Leukocyte Esterase,Urine Negative (Negative); Nitrite,Urine Negative (Negative); PH, Urine 5.5 (5.0-8.0); Protein,Urine Negative (Negative); Specific Gravity,Urine 1.013 (1.001-1.035); Urobilinogen,Urine <2.0 mg/dL (<2.0)
[2021-02-08 17:34] VITALS: BP 136/72; PULSE 80
== END 2021-02-08 17:34 | disposition home or self-care (01) ==
LOC: EC 14:35
DX: G40.909 Epilepsy, unspecified, not intractable, without status epilepticus (principal); E03.9 Hypothyroidism, unspecified; E78.5 Hyperlipidemia, unspecified; F17.200 Nicotine dependence, unspecified, uncomplicated; F32.9 Major depressive disorder, single episode, unspecified; F41.9 Anxiety disorder, unspecified; I10 Essential (primary) hypertension; J44.9 Chronic obstructive pulmonary disease, unspecified; M19.90 Unspecified osteoarthritis, unspecified site; M79.7 Fibromyalgia; Z90.49 Acquired absence of other specified parts of digestive tract; Z90.710 Acquired absence of both cervix and uterus; Z90.09 Acquired absence of other part of head and neck; Z98.51 Tubal ligation status; Z90.722 Acquired absence of ovaries, bilateral; W19.XXXA Unspecified fall, initial encounter
CPT/HCPCS: 36415; 93005; 80053; 85025; 81003; 72125; 70450; 99284; J1170

== ENCOUNTER → 2021-03-02 | Outpatient (CLI) | payer MEDICARE, OTHER ==
--- NOTE | 2021-03-03 18:36 | EEG ---
ELECTROENCEPHALOGRAM REPORT DATE OF SERVICE: 03/03/2021. CLINICAL HISTORY: This is a 51-year-old woman with reported history of epilepsy, who continues to have seizures. This video EEG is obtained to evaluate for seizure and epileptiform activity. MEDICATIONS: Relevant medication: Tegretol, Valium, gabapentin, and Fenofibrate. EEG TYPE: A routine 21 channel EEG is obtained with video using the 10/20 electrode system. DESCRIPTION: Wakefulness and drowsiness are obtained. During wakefulness, there is a posterior dominant rhythm of low to moderate voltage, reactive, well modulated, of 8.5-9.5 hertz activity. During drowsiness there is slowing and attenuation of the background activity. There is no physiological stage 2 sleep architecture. There is no focal slowing. Interictal and ictal are none. ACTIVATION PROCEDURES: Photic stimulation did not evoke a posterior driving response. There is no abnormality during the photic stimulation. Hyperventilation: There is no abnormality during the hyperventilation state. CLINICAL INTERPRETATION: This is a normal routine EEG. There are no focal slowing, epileptiform discharges or seizure during the EEG. Clinical correlation is recommended. RECOMMENDATION: If the patient continues to have seizure-like activity, would recommend long- term EEG. MMODL / IJN: [id number] / ALCON
== END ==
LOC: NEUROMAIN 07:36
PROVIDERS: ATTEND Internal Medicine
DX: G40.901 Epilepsy, unspecified, not intractable, with status epilepticus (principal); F17.200 Nicotine dependence, unspecified, uncomplicated; Z88.0 Allergy status to penicillin; Z91.041 Radiographic dye allergy status; Z88.2 Allergy status to sulfonamides; Z91.012 Allergy to eggs; Z91.018 Allergy to other foods
CPT/HCPCS: 95819

== ENCOUNTER → 2021-05-20 | Outpatient (CLI) | payer MEDICARE, OTHER ==
--- NOTE | 2021-05-24 12:35 | MM ---
Reason for exam: screening (asymptomatic). Last mammogram was performed 3 years and 8 months ago. History: Patient is postmenopausal and has history of endometrial cancer at age 27. Family history of breast cancer in mother and breast cancer in grandmother. Pre-pectoral saline implants in both breasts. Taking estrogen for 5 years. Physical Findings: A clinical breast exam by your physician is recommended on an annual basis and results should be correlated with mammographic findings. MG 3D Screen Mammo Imp/Cad Bilateral CC, MLO, and ID view(s) were taken. Prior study comparison: September 15, 2017, mammogram, performed at [facility]. The breast tissue is heterogeneously dense. This may lower the sensitivity of mammography. No significant changes when compared with prior studies. ASSESSMENT: Benign, BI-RAD 2 RECOMMENDATION: Routine screening mammogram of both breasts in 1 year. Manage patient on a clinical basis.
== END | disposition home or self-care (01) ==
LOC: RADMAMWWP 14:53
PROVIDERS: ATTEND Internal Medicine
DX: Z12.31 Encounter for screening mammogram for malignant neoplasm of breast (principal); Z80.3 Family history of malignant neoplasm of breast
CPT/HCPCS: 77063; 77067

== ENCOUNTER 2022-02-01 14:51 | Observation (INO) | payer MEDICARE, OTHER ==
[2022-02-01] MEDS ORDERED: SODIUM CHLORIDE 0.9% 500 ML 500 ML IV STA (15:17)
[2022-02-01] MEDS ORDERED: ASPIRIN 81 MG PO STA (15:17)
[2022-02-01] MEDS ORDERED: NITROGLYCERIN OINT 1 INCH/GM PACKET TOPICAL STA (15:17)
--- NOTE | 2022-02-01 15:20 | ED ---
General Adult HPI - General Chief complaint: Chest Pain Stated complaint: Chest pain Time Seen by Provider: 02/01/22 15:00 Source: patient, EMS, RN notes reviewed, old records reviewed Mode of arrival: EMS Limitations: no limitations - History of Present Illness Initial comments: This is a 51-year-old female presents emergency Department with a past medical history significant for adrenal insufficiency, high cholesterol, smoking, positive family history. Patient comes in today because she woke up this morning with chest pain he went to both arms and she was short of breath and mildly sweaty. Patient states she is currently having chest pain no radiation at this time still remains mildly short of breath and complains of mild nausea. Patient denies any palpitations. Patient denies any recent fever chills or cough. Patient denies headache patient denies numbness or weakness. Patient denies abdominal pain. - Related Data Home Medications Medication Instructions Recorded Confirmed estradioL [Estrace] 1 mg PO HS 07/19/16 02/01/22 Hydrocortisone [Cortef] 10 mg PO DAILY 07/21/20 02/01/22 oxyCODONE-APAP 10-325MG [Percocet 1 tab PO QID 07/21/20 02/01/22 10-325 mg] Diazepam [Valium] 10 mg PO Q8H PRN 02/08/21 02/01/22 Gabapentin 600 mg PO TID 02/08/21 02/01/22 Hydrocortisone [Cortef] 5 mg PO HS 02/08/21 02/01/22 diphenhydrAMINE [Benadryl] 50 mg PO Q8H PRN 02/08/21 02/01/22 Albuterol Inhaler [Ventolin Hfa 2 puff INHALATION RT-Q6H PRN 02/01/22 02/01/22 Inhaler] Atorvastatin [Lipitor] 40 mg PO HS 02/01/22 02/01/22 Chlorhexidine Gluconate [Peridex] 15 ml PO BID 02/01/22 02/01/22 Previous Rx's Medication Instructions Recorded ARIPiprazole [Abilify] 20 mg PO HS 30 Days tab 11/12/20 carBAMazepine [TEGretol XR] 400 mg PO HS 30 Days tab.er.12h 11/12/20 Allergies Allergy/AdvReac Type Severity Reaction Status Date / Time Penicillins Allergy Severe Anaphylaxis Verified 02/08/21 16:41 Iodinated Contrast Media Allergy Unknown Rash/Hives Verified 02/08/21 16:41 [Iodinated Contrast Media - IV Dye] egg yolk Allergy Unknown Verified 02/08/21 16:41 mustard Allergy Unknown Verified 02/08/21 16:41 Sulfa (Sulfonamide Allergy Unknown Verified 02/08/21 16:41 Antibiotics) sulfamethoxazole Allergy Rash/Hives Verified 02/08/21 16:41 [From Bactrim] trimethoprim [From Bactrim] Allergy Rash/Hives Verified 02/08/21 16:41 Review of Systems ROS Statement: Those systems with pertinent positive or pertinent negative responses have been documented in the HPI. ROS Other: All systems not noted in ROS Statement are negative. Past Medical History Past Medical History: Cancer, COPD, Fibromyalgia, GERD/Reflux, Hyperlipidemia, Hypertension, Osteoarthritis (OA), Pneumonia, Seizure Disorder, Thyroid Disorder Additional Past Medical History / Comment(s): Hpylori, arthritis in multiple joints, compression fracture L1 with chronic pain, last seizure in 2018 or 2019- pt unsure, hypothyroid, pt states she is an alcoholic and quit drinking 4 days ago, past elevated liver function tests, L breast "lump" being monitored, pt states past week she has had stomach pain after eating and past 2 weeks she has had blurry vision/bed wetting. History of Any Multi-Drug Resistant Organisms: MRSA Date of last positivie culture/infection: NOVEMBER 2012 MDRO Source:: RT ELBOW Past Surgical History: Adenoidectomy, Breast Surgery, Cholecystectomy, Hysterectomy, Orthopedic Surgery, Tonsillectomy, Tubal Ligation Additional Past Surgical History / Comment(s): Bilateral breast implants, bilateral oophorectomy d/t cysts, EGDs, EGD with dilation, susu fundoplication with revision, R elbow surgery for MRSA infection, R rotator cuff repair, low back surgery (cemented), bilateral hip surgery for tendon/muscle repairs/screws in place. Cervical fusion Past Anesthesia/Blood Transfusion Reactions: No Reported Reaction, Family History of Problems w/ Anesthesia Additional Past Anesthesia/Blood Transfusion Reaction / Comment(s): MOTHER= A- FIB WITH ANESTHESIA. Past Psychological History: Anxiety, Bipolar, Depression Smoking Status: Current every day smoker Past Alcohol Use History: Occasional Past Drug Use History: None Reported - Past Family History Father Family Medical History: Eye Disorder, Hypertension Additional Family Medical History / Comment(s): Father committed suicide at the age of 58yrs. He had glaucoma Brother(s) Family Medical History: No Reported History Additional Family Medical History / Comment(s): She has one brother that is a recovered alcoholic with no other major medical problems. Sister(s) Additional Family Medical History / Comment(s): Patient has one sister that suffers from depression and anxiety Mother Family Medical History: Cancer, Dementia, Diabetes Mellitus, Deep Vein Thrombosis (DVT), Eye Disorder, Hypertension, Pulmonary Embolus Additional Family Medical History / Comment(s): Corneal transplant, breast cancer General Exam - General Exam Comments Initial Comments: GENERAL: Patient is well-developed and well-nourished. Patient is nontoxic and well- hydrated and is in no acute distress. ENT: Neck is soft and supple. No significant lymphadenopathy is noted. Oropharynx is clear. Moist mucous membranes. Neck has full range of motion without eliciting any pain. EYES: The sclera were anicteric and conjunctiva were pink and moist. Extraocular movements were intact and pupils were equal round and reactive to light. Eyelids were unremarkable. PULMONARY: Unlabored respirations. Good breath sounds bilaterally. No audible rales rhon chi or wheezing was noted. CARDIOVASCULAR: There is a regular rate and rhythm without any murmurs gallops or rubs. ABDOMEN: Soft and nontender with normal bowel sounds. SKIN: Skin is clear with no lesions or rashes and otherwise unremarkable. NEUROLOGIC: Patient is alert and oriented x3. Cranial nerves II through XII are grossly intact. Motor and sensory are also intact. Normal speech, volume and content. Symmetrical smile. MUSCULOSKELETAL: Normal extremities with adequate strength and full range of motion. LYMPHATICS: No significant lymphadenopathy is noted PSYCHIATRIC: Normal psychiatric evaluation. Limitations: no limitations Course Vital Signs 02/01/22 02/01/22 02/01/22 15:01 16:04 20:14 Temperature 97.8 F Pulse Rate 91 78 75 Respiratory 18 18 14 Rate Blood Pressure 132/107 139/94 121/82 O2 Sat by Pulse 97 98 95 Oximetry Medical Decision Making - Medical Decision Making EKG shows sinus rhythm at 88 bpm CO interval 146 QRS is 88 QT interval 346 QTC is 392. Patient's EKG shows no ST segment elevation or depression. Chest x-ray shows no acute abnormality. Patient was feeling much better when I went back and reevaluated her. I spoke with sounds physician and he agreed to admit the patient admitted the patient wrote admitting orders. - Lab Data Result diagrams: 02/01/22 15:51 02/01/22 15:51 Lab Results 02/01/22 02/01/22 02/01/22 Range/Units 15:51 15:51 15:51 WBC 8.0 (3.8-10.6) k/uL RBC 4.49 (3.80-5.40) m/uL Hgb 15.5 (11.4-16.0) gm/dL Hct 48.2 H (34.0-46.0) % MCV 107.4 H (80.0-100.0) fL MCH 34.5 (25.0-35.0) pg MCHC 32.1 (31.0-37.0) g/dL RDW 13.5 (11.5-15.5) % Plt Count 253 (150-450) k/uL MPV 7.8 Neutrophils % 58 % Lymphocytes % 33 % Monocytes % 6 % Eosinophils % 1 % Basophils % 1 % Neutrophils # 4.6 (1.3-7.7) k/uL Lymphocytes # 2.7 (1.0-4.8) k/uL Monocytes # 0.4 (0-1.0) k/uL Eosinophils # 0.1 (0-0.7) k/uL Basophils # 0.1 (0-0.2) k/uL Macrocytosis Moderate PT (9.0-12.0) sec INR (<1.2) APTT (22.0-30.0) sec Sodium 138 (137-145) mmol/L Potassium 3.9 (3.5-5.1) mmol/L Chloride 106 (98-107) mmol/L Carbon Dioxide 23 (22-30) mmol/L Anion Gap 9 mmol/L BUN 14 (7-17) mg/dL Creatinine 0.90 (0.52-1.04) mg/dL Est GFR (CKD-EPI)AfAm 87 (>60 ml/min/1.73 sqM) Est GFR (CKD-EPI)NonAf 75 (>60 ml/min/1.73 sqM) Glucose 92 (74-99) mg/dL Calcium 9.3 (8.4-10.2) mg/dL Magnesium 1.7 (1.6-2.3) mg/dL Total Bilirubin 0.6 (0.2-1.3) mg/dL AST 21 (14-36) U/L ALT 19 (4-34) U/L Alkaline Phosphatase 92 (38-126) U/L Troponin I (0.000-0.034) ng/mL Total Protein 7.8 (6.3-8.2) g/dL Albumin 4.6 (3.5-5.0) g/dL Coronavirus (PCR) Not Detected (Not Detectd) 02/01/22 02/01/22 Range/Units 16:14 17:29 WBC (3.8-10.6) k/uL RBC (3.80-5.40) m/uL Hgb (11.4-16.0) gm/dL Hct (34.0-46.0) % MCV (80.0-100.0) fL MCH (25.0-35.0) pg MCHC (31.0-37.0) g/dL RDW (11.5-15.5) % Plt Count (150-450) k/uL MPV Neutrophils % % Lymphocytes % % Monocytes % % Eosinophils % % Basophils % % Neutrophils # (1.3-7.7) k/uL Lymphocytes # (1.0-4.8) k/uL Monocytes # (0-1.0) k/uL Eosinophils # (0-0.7) k/uL Basophils # (0-0.2) k/uL Macrocytosis PT 11.1 (9.0-12.0) sec INR 1.0 (<1.2) APTT 24.7 (22.0-30.0) sec Sodium (137-145) mmol/L Potassium (3.5-5.1) mmol/L Chloride (98-107) mmol/L Carbon Dioxide (22-30) mmol/L Anion Gap mmol/L BUN (7-17) mg/dL Creatinine (0.52-1.04) mg/dL Est GFR (CKD-EPI)AfAm (>60 ml/min/1.73 sqM) Est GFR (CKD-EPI)NonAf (>60 ml/min/1.73 sqM) Glucose (74-99) mg/dL Calcium (8.4-10.2) mg/dL Magnesium (1.6-2.3) mg/dL Total Bilirubin (0.2-1.3) mg/dL AST (14-36) U/L ALT (4-34) U/L Alkaline Phosphatase (38-126) U/L Troponin I 0.035 H* (0.000-0.034) ng/mL Total Protein (6.3-8.2) g/dL Albumin (3.5-5.0) g/dL Coronavirus (PCR) (Not Detectd) Disposition Clinical Impression: Chest pain Disposition: ADMITTED IP TO THIS HOSP Referrals: Ja Boyer MD [Primary Care Provider] - 1-2 days Time of Disposition: 20:33
--- NOTE | 2022-02-01 15:35 | XR ---
EXAMINATION TYPE: XR chest 2V DATE OF EXAM: 02/01/2022 COMPARISON: 11/10/2020 HISTORY: 51-year-old female with chest pain TECHNIQUE: PA and lateral views FINDINGS: The cardiomediastinal silhouette, aorta, and pulmonary vasculature are within normal limits. Lungs an d pleural spaces are clear. ACDF hardware. Suture anchor right humeral head from previous rotator cuf f surgery. Vertebroplasty change L2 vertebral body. IMPRESSION: No acute cardiopulmonary process.
[2022-02-01 16:08] LABS: Basophils # (A) 0.1 k/uL (0-0.2); Basophils % (A) 1 %; Eosinophils # (A) 0.1 k/uL (0-0.7); Eosinophils % (A) 1 %; HCT 48.2 % (34.0-46.0); HGB 15.5 gm/dL (11.4-16.0); Lymphocytes # (A) 2.7 k/uL (1.0-4.8); Lymphocytes % (A) 33 %; MCH 34.5 pg (25.0-35.0); MCHC 32.1 g/dL (31.0-37.0); MCV 107.4 fL (80.0-100.0); Macrocytosis Moderate; Mean Platelet Volume 7.8; Monocytes # (A) 0.4 k/uL (0-1.0); Monocytes % (A) 6 %; Neutrophils # (A) 4.6 k/uL (1.3-7.7); Neutrophils % (A) 58 %; Platelet Count 253 k/uL (150-450); RBC 4.49 m/uL (3.80-5.40); RDW 13.5 % (11.5-15.5)
[2022-02-01 16:21] LABS: Albumin 4.6 g/dL (3.5-5.0); Calcium 9.3 mg/dL (8.4-10.2); Magnesium 1.7 mg/dL (1.6-2.3); Potassium 3.9 mmol/L (3.5-5.1); Total Bilirubin 0.6 mg/dL (0.2-1.3); Total Protein 7.8 g/dL (6.3-8.2)
[2022-02-01 17:54] LABS: Partial Thromboplastin Time 24.7 sec (22.0-30.0); Prothrombin Time 11.1 sec (9.0-12.0)
[2022-02-01] MEDS ORDERED: NITROGLYCERIN SL TABS 0.4 MG TAB SUBLINGUAL PRN (20:34)
[2022-02-01 21:50] VITALS: RESP 16
--- NOTE | 2022-02-02 01:06 | P.HPIM ---
History of Present Illness H&P Date: 02/01/22 The patient is a 51-year-old female with a PMH of hypertension, hyperlipidemia, adrenal insufficiency, fibromyalgia, COPD, and seizure disorder who presents to the emergency room with complaints of chest discomfort. The patient reports that her pain started earlier this morning at around 7 AM, sudden onset, substernal, sharp and pressure-like in nature, radiating to both arms, 10 out of 10. Reported associated shortness of breath and nausea. She reports that she went back to sleep until 1 PM, when she woke up and still had the same pain, at which time she decided to contact EMS. The patient was given sublingual nitroglycerin and aspirin [address] route to the hospital. EKG in emergency room revealed sinus rhythm at 88 bpm with T-wave inversion in lead 3. Chest x-ray was unremarkable. Laboratory evaluation was remarkable for troponin of 0.035 and MCV 107.4. At time of interview, the patient reported that her pain had significantly improved throughout the day, and was currently at a 2 out of 10, pressure-like, substernal, nonradiating. She denied experiencing lower extremity pain or swelling. Also denied abdominal pain, fever, chills, cough, diarrhea. Review of systems: Pertinent positives and negatives as discussed in HPI, a complete review of systems was performed and all other systems are negative. Physical examination: General: non toxic, no distress, appears at stated age, normal weight Derm: no unusual rashes/lesions no unusual ecchymoses, warm, dry Head: atraumatic, normocephalic, symmetric Eyes: EOMI, no lid lag, anicteric sclera, pupils equal round reactive to light ENT: Nose and ears atraumatic, no thrush, no pharyngeal erythema Neck: No thyromegaly, no cervical lymphadenopathy, trachea midline, supple Mouth: no lip lesion, mucus membranes moist Cardiovascular: S1S2 reg, no murmur, positive posterior tibial pulse bilateral, no edema, capillary refill less than 2 seconds Lungs: CTA bilateral, no rhonchi, no rales , no accessory muscle use Abdominal: soft, nontender to palpation, no guarding, no appreciable organomegaly, normal bowel sounds Ext: no gross muscle atrophy, muscle strength 5 out of 5 in all 4 extremities grossly, no contractures, Neuro: CN II-XI grossly intact, light touch intact all 4 extremities, finger to nose within normal limits, Psych: Alert, oriented, appropriate affect Assessment/plan Non-ST elevation ID -Hold off on heparin infusion as troponin downtrended to < 0.012 -Continue with aspirin, statin -Cardiac monitoring -Cardiology consult Chronic conditions: Hypertension, hyperlipidemia, seizure disorder, COPD -Continue with home meds DVT prophylaxis -Heparin subcu The patient is admitted with an anticipated less than 2 midnight stay for evaluation of NSTEMI CODE STATUS: Full Code Discussed with: Patient Anticipated discharge date: in am Anticipated discharge place: Home Past Medical History Past Medical History: Cancer, COPD, Fibromyalgia, GERD/Reflux, Hyperlipidemia, Hypertension, Osteoarthritis (OA), Pneumonia, Seizure Disorder, Thyroid Disorder Additional Past Medical History / Comment(s): Hpylori, arthritis in multiple joints, compression fracture L1 with chronic pain, last seizure in 2018 or 2019- pt unsure, hypothyroid, pt states she is an alcoholic, states that she drinks about "3 cap fulls of alcohol everyday", past elevated liver function tests, L breast "lump" being monitored, pt states past week she has had stomach pain after eating and past 2 weeks she has had blurry vision/bed wetting. Cervical CA with hysterectomy. Adrenal insufficency. History of Any Multi-Drug Resistant Organisms: MRSA Date of last positivie culture/infection: NOVEMBER 2012 MDRO Source:: RT ELBOW Past Surgical History: Adenoidectomy, Breast Surgery, Cholecystectomy, Hysterectomy, Orthopedic Surgery, Tonsillectomy, Tubal Ligation Additional Past Surgical History / Comment(s): Bilateral breast implants, bilateral oophorectomy d/t cysts, EGDs, EGD with dilation, susu fundoplication with revision, R elbow surgery for MRSA infection, R rotator cuff repair, low back surgery (cemented), bilateral hip surgery for tendon/muscle repairs/screws in place. Cervical fusion Past Anesthesia/Blood Transfusion Reactions: No Reported Reaction, Family History of Problems w/ Anesthesia Additional Past Anesthesia/Blood Transfusion Reaction / Comment(s): MOTHER= A- FIB WITH ANESTHESIA. Past Psychological History: Anxiety, Bipolar, Depression Additional Psychological History / Comment(s): Pt resides with her 9 yr old angel ott who has ADHD and for whom she has full custody. She does not drive, boyfriend or family drive her places. She has a nebulizer. Smoking Status: Current every day smoker Past Alcohol Use History: Occasional Additional Past Alcohol Use History / Comment(s): Pt started smoking in 1984 and was up to 3 ppd but has decreased for approximately one month down to 0.5 ppd. She states she is an alcoholic and was drinking in the past up to 1/5 of vodka a day but weaned herself down and quit drinking 4 days ago. Past Drug Use History: None Reported Additional Drug Use History / Comment(s): Smoked marijuana as a young woman, none since. - Past Family History Father Family Medical History: Eye Disorder, Hypertension Additional Family Medical History / Comment(s): Father committed suicide at the age of 58yrs. He had glaucoma Brother(s) Family Medical History: No Reported History Additional Family Medical History / Comment(s): She has one brother that is a recovered alcoholic with no other major medical problems. Sister(s) Additional Family Medical History / Comment(s): Patient has one sister that suffers from depression and anxiety Mother Family Medical History: Cancer, Dementia, Diabetes Mellitus, Deep Vein Thrombosis (DVT), Eye Disorder, Hypertension, Pulmonary Embolus Additional Family Medical History / Comment(s): Corneal transplant, breast cancer Medications and Allergies Home Medications Medication Instructions Recorded Confirmed Type estradioL [Estrace] 1 mg PO HS 07/19/16 02/01/22 History Hydrocortisone [Cortef] 10 mg PO DAILY 07/21/20 02/01/22 History oxyCODONE-APAP 10-325MG [Percocet 1 tab PO QID 07/21/20 02/01/22 History 10-325 mg] ARIPiprazole [Abilify] 20 mg PO HS 30 Days tab 11/12/20 02/01/22 Rx carBAMazepine [TEGretol XR] 400 mg PO HS 30 Days tab.er.12h 11/12/20 02/01/22 Rx Diazepam [Valium] 10 mg PO Q8H PRN 02/08/21 02/01/22 History Gabapentin 600 mg PO TID 02/08/21 02/01/22 History Hydrocortisone [Cortef] 5 mg PO HS 02/08/21 02/01/22 History diphenhydrAMINE [Benadryl] 50 mg PO Q8H PRN 02/08/21 02/01/22 History Albuterol Inhaler [Ventolin Hfa 2 puff INHALATION RT-Q6H PRN 02/01/22 02/01/22 History Inhaler] Atorvastatin [Lipitor] 40 mg PO HS 02/01/22 02/01/22 History Chlorhexidine Gluconate [Peridex] 15 ml PO BID 02/01/22 02/01/22 History Allergies Allergy/AdvReac Type Severity Reaction Status Date / Time Penicillins Allergy Severe Anaphylaxis Verified 02/08/21 16:41 Iodinated Contrast Media Allergy Unknown Rash/Hives Verified 02/08/21 16:41 [Iodinated Contrast Media - IV Dye] egg yolk Allergy Unknown Verified 02/08/21 16:41 mustard Allergy Unknown Verified 02/08/21 16:41 Sulfa (Sulfonamide Allergy Unknown Verified 02/08/21 16:41 Antibiotics) sulfamethoxazole Allergy Rash/Hives Verified 02/08/21 16:41 [From Bactrim] trimethoprim [From Bactrim] Allergy Rash/Hives Verified 02/08/21 16:41 Physical Exam Vitals: Vital Signs Temp Pulse Pulse Resp BP BP Pulse Ox 02/02/22 00:00 98.0 F 80 16 137/82 97 02/01/22 21:49 77 16 137/93 98 02/01/22 20:43 98.3 F 83 16 130/84 96 02/01/22 20:14 75 14 121/82 95 02/01/22 16:04 78 18 139/94 98 02/01/22 15:01 97.8 F 91 18 132/107 97 Intake and Output 02/01/22 02/01/22 02/02/22 14:59 22:59 06:59 Other: Weight 77.111 kg Results CBC & Chem 7: 02/01/22 15:51 02/01/22 15:51 Labs: Abnormal Lab Results - Last 24 Hours (Table) 02/01/22 02/01/22 Range/Units 15:51 16:14 Hct 48.2 H (34.0-46.0) % MCV 107.4 H (80.0-100.0) fL Troponin I 0.035 H* (0.000-0.034) ng/mL Thrombosis Risk Factor Assmnt - Choose All That Apply Any of the Below Risk Factors Present?: Yes Each Factor Represents 1 point: Abnormal pulmonary function (COPD), Age 41-60 years Other Risk Factors: No Other congenital or acquired thrombophilia - If yes, enter type in comment: No Thrombosis Risk Factor Assessment Total Risk Factor Score: 2 Thrombosis Risk Factor Assessment Level: Low Risk
[2022-02-02] MEDS ORDERED: ATORVASTATIN 40 MG TAB PO SCH (01:07)
[2022-02-02] MEDS ORDERED: HYDROCORTISONE 10 MG TAB PO SCH ×2 (01:15→09:00)
[2022-02-02] MEDS ORDERED: ALBUTEROL NEBULIZED 2.5 MG/3 ML INHALATION PRN (01:15)
[2022-02-02] MEDS ORDERED: diazePAM 5 MG TAB PO PRN (01:15)
[2022-02-02] MEDS ORDERED: carBAMazepine 400 MG TAB.ER.12H PO SCH (01:15)
[2022-02-02] MEDS ORDERED: ACETAMINOPHEN TAB 325 MG TAB PO PRN (01:38)
[2022-02-02] MEDS: NITROGLYCERIN OINT 1 INCH/GM PACKET TOPICAL SCH ×3 (06:10→12:04)
[2022-02-02] MEDS ORDERED: HEPARIN SODIUM,PORCINE/PF 5,000 UNIT/0.5 ML SYRINGE SQ SCH (08:00)
[2022-02-02] MEDS ORDERED: DOBUTamine DRIP for NUC MED 500 MG in DEXTROSE/WATER 1 250ML.BAG IV PRN (08:34)
[2022-02-02] MEDS ORDERED: ASPIRIN 81 MG PO SCH (09:00)
[2022-02-02] MEDS ORDERED: ASPIRIN 325 MG TAB PO SCH (09:00)
[2022-02-02 09:30] VITALS: TEMP 97.5
--- NOTE | 2022-02-02 10:19 | P.CRDCN ---
History of Present Illness History of present illness: HISTORY OF PRESENT ILLNESS: This is a 51-year-old female with a past medical history significant for COPD, hypertension, hyperlipidemia, seizure disorder, alcoholism, prescription drug abuse prior intentional overdose in 10/2020. 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 We have been asked to see the patient in consultation for chest pain. She presents to the emergency department with complaints of chest discomfort. She states on 7:15AM Yesterday, she woke up with acute onset of chest pressure in the center of her chest. She had radiation to bilateral shoulders. It was nonexertional. She states that she had some nausea and was diaphoretic. She states she went to sleep and woke up again at 1 PM and continued to have chest pressure and nausea, she presented emergency department for further evaluation. She denies any shortness of breath, lightheadedness, dizziness, syncope or near syncope. She denies history of CAD, PR, stroke, diabetes. She currently smokes 3PPD. She states she drinks 2-4 shots of [place] a week. Denies illicit drug use. Family history includes mother has atrial fibrillation DIAGNOSTICS: EKG reveals sinus rhythm HR 88, with nonspecific ST-T wave abnormalities, no acute ischemia noted Chest xray negative for acute process Laboratory data: Troponin 0.035, negative 2. CBC unremarkable, sodium 138, potassium 3.9, BUN 14, 0 bands 0.9, magnesium 1.7 Current home medications include atorvastatin 40 mg nightly, Benadryl, hydrocortisone, Valium, gabapentin, Abilify, Peridex Patient underwent Lexiscan stress test 10/2020 which was negative for reversible ischemia Echocardiogram 10/2020 EF 55-60%, mild TR. REVIEW OF SYSTEMS: At the time of my exam: CONSTITUTIONAL: Denies fever or chills. HEENT: Denies blurred vision, vision changes, or eye pain. Denies hemoptysis CARDIOVASCULAR: +chest pain,Denies orthopnea, PND or palpitations RESPIRATORY: No shortness of breath. GASTROINTESTINAL: Denies abdominal pain. Denies nausea or vomiting. HEMATOLOGIC: Denies bleeding disorders. GENITOURINARY: Denies any blood in urine. SKIN: Denies pruitis. Denies rash. PHYSICAL EXAM: VITAL SIGNS: Reviewed. GENERAL: Well-developed in no acute distress. HEENT: Head is normocephalic. Pupils are equal, round. Sclerae anicteric. Mucous membranes of the mouth are moist. Neck supple. No JVD or thyromegaly LUNGS: Respirations even and unlabored. Lungs essentially clear to auscultation bilaterally. HEART: Regular rate and rhythm. S1 and S2 heard. ABDOMEN: Soft. Nondistended. Nontender. EXTREMITIES: Normal range of motion. No clubbing or cyanosis. Peripheral pulses intact. No lower extremity edema NEUROLOGIC: Awake and alert. Oriented x 3. ASSESSMENT: Chest pain, atypical acute coronary syndrome has been ruled out Elevated troponin of 0.035 likely a lab error, repeat negative x 2. Hypertension Hyperlipidemia Seizure disorder Hypothyroidism History of adrenal insufficiency, started on Florinef and Cortef in May 2020 History of alcohol abuse Nicotine dependence Anxiety Bipolar disorder Depression Cervical radiculopathy with previous cervical fusion PLAN: An acute coronary event has been ruled out with no EKG evidence of ischemia and negative cardiac enzymes. Obtain 2D echocardiogram and doppler study to assess cardiac structure and function. Perform Dobutamine stress Echo test to assess for stress induced cardiac i schemia. If abnormal will consider coronary angiography. If stress test is negative, okay to discharge from cardiology perspective. Smoking and alcohol cessation discussed and highly recommended. Thank you kindly for this consultation. Nurse practitioner note has been reviewed by physician. Signing provider agrees with the documented findings, assessment, and plan of care. Past Medical History Past Medical History: Cancer, COPD, Fibromyalgia, GERD/Reflux, Hyperlipidemia, Hypertension, Osteoarthritis (OA), Pneumonia, Seizure Disorder, Thyroid Disorder Additional Past Medical History / Comment(s): Hpylori, arthritis in multiple joints, compression fracture L1 with chronic pain, last seizure in 2017 or 2018- pt unsure, hypothyroid, pt states she is an alcoholic, states that she drinks about "3 cap fulls of alcohol everyday", past elevated liver function tests, L breast "lump" being monitored, pt states past week she has had stomach pain after eating and past 2 weeks she has had blurry vision/bed wetting. Cervical C A with hysterectomy. Adrenal insufficency. History of Any Multi-Drug Resistant Organisms: MRSA Date of last positivie culture/infection: NOVEMBER 2012 MDRO Source:: RT ELBOW Past Surgical History: Adenoidectomy, Breast Surgery, Cholecystectomy, Hysterectomy, Orthopedic Surgery, Tonsillectomy, Tubal Ligation Additional Past Surgical History / Comment(s): Bilateral breast implants, bilateral oophorectomy d/t cysts, EGDs, EGD with dilation, susu fundoplication with revision, R elbow surgery for MRSA infection, R rotator cuff repair, low back surgery (cemented), bilateral hip surgery for tendon/muscle repairs/screws in place. Cervical fusion Past Anesthesia/Blood Transfusion Reactions: No Reported Reaction, Family History of Problems w/ Anesthesia Additional Past Anesthesia/Blood Transfusion Reaction / Comment(s): MOTHER= A- FIB WITH ANESTHESIA. Past Psychological History: Anxiety, Bipolar, Depression Additional Psychological History / Comment(s): Pt resides with her 9 yr old grandson who has ADHD and for whom she has full custody. She does not drive, boyfriend or family drive her places. She has a nebulizer. Smoking Status: Current every day smoker Past Alcohol Use History: Occasional Additional Past Alcohol Use History / Comment(s): Pt started smoking in 1984 and was up to 3 ppd but has decreased for approximately one month down to 0.5 ppd. She states she is an alcoholic and was drinking in the past up to 1/5 of vodka a day but weaned herself down and quit drinking 4 days ago. Past Drug Use History: None Reported Additional Drug Use History / Comment(s): Smoked marijuana as a young woman, none since. - Past Family History Father Family Medical History: Eye Disorder, Hypertension Additional Family Medical History / Comment(s): Father committed suicide at the age of 58yrs. He had glaucoma Brother(s) Family Medical History: No Reported History Additional Family Medical History / Comment(s): She has one brother that is a recovered alcoholic with no other major medical problems. Sister(s) Additional Family Medical History / Comment(s): Patient has one sister that suffers from depression and anxiety Mother Family Medical History: Cancer, Dementia, Diabetes Mellitus, Deep Vein Thrombosis (DVT), Eye Disorder, Hypertension, Pulmonary Embolus Additional Family Medical History / Comment(s): Corneal transplant, breast cancer Medications and Allergies Home Medications Medication Instructions Recorded Confirmed Type estradioL [Estrace] 1 mg PO HS 07/19/16 02/01/22 History Hydrocortisone [Cortef] 10 mg PO DAILY 07/21/20 02/01/22 History oxyCODONE-APAP 10-325MG [Percocet 1 tab PO QID 07/21/20 02/01/22 History 10-325 mg] ARIPiprazole [Abilify] 20 mg PO HS 30 Days tab 11/12/20 02/01/22 Rx carBAMazepine [TEGretol XR] 400 mg PO HS 30 Days tab.er.12h 11/12/20 02/01/22 Rx Diazepam [Valium] 10 mg PO Q8H PRN 02/08/21 02/01/22 History Gabapentin 600 mg PO TID 02/08/21 02/01/22 History Hydrocortisone [Cortef] 5 mg PO HS 02/08/21 02/01/22 History diphenhydrAMINE [Benadryl] 50 mg PO Q8H PRN 02/08/21 02/01/22 History Albuterol Inhaler [Ventolin Hfa 2 puff INHALATION RT-Q6H PRN 02/01/22 02/01/22 History Inhaler] Atorvastatin [Lipitor] 40 mg PO HS 02/01/22 02/01/22 History Chlorhexidine Gluconate [Peridex] 15 ml PO BID 02/01/22 02/01/22 History Allergies Allergy/AdvReac Type Severity Reaction Status Date / Time Penicillins Allergy Severe Anaphylaxis Verified 02/08/21 16:41 Iodinated Contrast Media Allergy Unknown Rash/Hives Verified 02/08/21 16:41 [Iodinated Contrast Media - IV Dye] egg yolk Allergy Unknown Verified 02/08/21 16:41 mustard Allergy Unknown Verified 02/08/21 16:41 Sulfa (Sulfonamide Allergy Unknown Verified 02/08/21 16:41 Antibiotics) sulfamethoxazole Allergy Rash/Hives Verified 02/08/21 16:41 [From Bactrim] trimethoprim [From Bactrim] Allergy Rash/Hives Verified 02/08/21 16:41 Physical Exam Vitals: Vital Signs Temp Pulse Pulse Resp BP BP Pulse Ox 02/02/22 04:00 97.9 F 84 16 129/80 97 02/02/22 01:59 80 16 02/02/22 00:00 98.0 F 80 16 137/82 97 02/01/22 21:49 77 16 137/93 98 02/01/22 20:43 98.3 F 83 16 130/84 96 02/01/22 20:14 75 14 121/82 95 02/01/22 16:04 78 18 139/94 98 02/01/22 15:01 97.8 F 91 18 132/107 97 Intake and Output 02/01/22 02/02/22 02/02/22 22:59 06:59 14:59 Other: # Voids 1 Weight 77.111 kg 75.9 kg Results 02/01/22 15:51 02/01/22 15:51 Cardiac Enzymes 02/01/22 02/01/22 02/01/22 Range/Units 15:51 16:14 20:55 AST 21 (14-36) U/L Troponin I 0.035 H* 0.015 (0.000-0.034) ng/mL 02/01/22 Range/Units 23:52 AST (14-36) U/L Troponin I <0.012 (0.000-0.034) ng/mL Coagulation 02/01/22 Range/Units 17:29 PT 11.1 (9.0-12.0) sec APTT 24.7 (22.0-30.0) sec CBC 02/01/22 Range/Units 15:51 WBC 8.0 (3.8-10.6) k/uL RBC 4.49 (3.80-5.40) m/uL Hgb 15.5 (11.4-16.0) gm/dL Hct 48.2 H (34.0-46.0) % Plt Count 253 (150-450) k/uL Comprehensive Metabolic Panel 02/01/22 Range/Units 15:51 Sodium 138 (137-145) mmol/L Potassium 3.9 (3.5-5.1) mmol/L Chloride 106 (98-107) mmol/L Carbon Dioxide 23 (22-30) mmol/L BUN 14 (7-17) mg/dL Creatinine 0.90 (0.52-1.04) mg/dL Glucose 92 (74-99) mg/dL Calcium 9.3 (8.4-10.2) mg/dL AST 21 (14-36) U/L ALT 19 (4-34) U/L Alkaline Phosphatase 92 (38-126) U/L Total Protein 7.8 (6.3-8.2) g/dL Albumin 4.6 (3.5-5.0) g/dL Current Medications Generic Name Dose Route Start Last Admin Trade Name Freq PRN Reason Stop Dose Admin Acetaminophen 650 mg 02/02/22 01:38 02/02/22 01:48 Acetaminophen Tab 325 Mg Tab PO 650 mg Q6HR PRN Administration Fever and/ or Pain Albuterol Sulfate 2.5 mg 02/02/22 01:15 Albuterol Nebulized 2.5 Mg/3 Ml INHALATION RT-Q6H PRN Shortness Of Breath Aripiprazole 20 mg 02/02/22 01:15 02/02/22 01:24 Aripiprazole 20 Mg Tab PO 20 mg HS MISAEL Administration Atorvastatin Calcium 40 mg 02/02/22 01:07 02/02/22 01:23 Atorvastatin 40 Mg Tab PO 40 mg HS MISAEL Administration Carbamazepine 400 mg 02/02/22 01:15 02/02/22 01:24 Carbamazepine 400 Mg Tab.Er.12h PO 400 mg HS MISAEL Administration Diazepam 10 mg 02/02/22 01:15 Diazepam 5 Mg Tab PO Q8H PRN Anxiety Heparin Sodium (Porcine) 5,000 unit 02/02/22 08:00 Heparin Sodium,Porcine/Pf 5,000 Unit/0.5 Ml Syringe SQ Q8HR MISAEL Hydrocortisone 5 mg 02/02/22 01:15 02/02/22 01:24 Hydrocortisone 10 Mg Tab PO 5 mg HS MISAEL Administration Hydrocortisone 10 mg 02/02/22 09:00 Hydrocortisone 10 Mg Tab PO DAILY MISAEL Nitroglycerin 0.4 mg 02/01/22 20:34 Nitroglycerin Sl Tabs 0.4 Mg Tab SUBLINGUAL Q5M PRN Chest Pain Nitroglycerin 1 inch 02/02/22 00:00 02/02/22 06:10 Nitroglycerin Oint 1 Inch/Gm Packet TOPICAL Not Given Q6HR MISAEL Intake and Output 02/01/22 02/02/22 02/02/22 22:59 06:59 14:59 Other: # Voids 1 Weight 77.111 kg 75.9 kg 02/01/22 15:51 02/01/22 15:51
[2022-02-02 10:57] LABS: LDL Cholesterol,Calculated 146.9 mg/dL (0.0-131.0)
--- NOTE | 2022-02-02 10:58 | CA ---
Transthoracic Echo Report Name: Renay Meneses Age: 51 Gender: F : 1970 Exam Date: 02/02/2022 08:25 Exam Location: [facility] Ht (in): 71 Wt (lb): 167 Ordering Physician: Lester Sinha MD Attending/Referring Phys: Charm Filter Operator Helper Naomi Hill RDCS Procedure CPT: Indications: elevated troponin Cardiac Hx: Technical Quality: Good Contrast 1: Total Dose (mL): Contrast 2: Total Dose (mL): MEASUREMENTS (Male / Female) Normal Values 2D ECHO LV Diastolic Diameter PLAX 5.2 cm 4.2 - 5.9 / 3.9 - 5.3 cm LV Systolic Diameter PLAX 3.7 cm IVS Diastolic Thickness 0.9 cm 0.6 - 1.0 / 0.6 - 0.9 cm LVPW Diastolic Thickness 0.9 cm 0.6 - 1.0 / 0.6 - 0.9 cm LV Relative Wall Thickness 0.3 RV Internal Dim ED PLAX 2.3 cm M-MODE Aortic Root Diameter MM 3.0 cm LA Systolic Diameter MM 2.8 cm LA Ao Ratio MM 1.0 MV E Point Septal Separation 0.9 cm AV Cusp Separation MM 2.0 cm DOPPLER AV Peak Velocity 80.9 cm/s AV Peak Gradient 2.6 mmHg MV Area PHT 3.9 cm??? MR Peak Velocity 110.3 cm/s MR Peak Gradient 4.9 mmHg Mitral E Point Velocity 71.3 cm/s Mitral A Point Velocity 48.6 cm/s Mitral E to A Ratio 1.5 MV Deceleration Time 195.7 ms TR Peak Velocity 93.0 cm/s TR Peak Gradient 3.5 mmHg Right Ventricular Systolic Press 8.2 mmHg FINDINGS Left Ventricle Normal Left ventricular size, wall thickness, systolic function with no obvious regional wall motion abnormalities. Normal Left ventricular diastolic filling pattern. Left ventricular ejection fraction is estimated at 55-60 %. Right Ventricle The right ventricle is normal in size and function. Right Atrium The right atrium is normal in size. Left Atrium The left atrium is normal in size. Mitral Valve Structurally normal mitral valve without significant stenosis or prolapse. There is trace mitral regurgitation. Aortic Valve Structurally normal aortic valve without significant sclerosis or stenosis. There is no aortic regurgitation. Tricuspid Valve Structurally normal tricuspid valve without significant stenosis. Pulmonary artery systolic pressure is normal. trace tricuspid regurgitation. Pulmonic Valve Structurally normal pulmonic valve without significant stenosis. There is no pulmonic regurgitation. Pericardium Normal pericardium without effusion. Aorta Normal aortic root dimension. CONCLUSIONS Normal LV function Normal PA pressure Trace mitral regurgitation Previewed by: Dr. Dano Douglas MD (Electronically Signed) Final Date: 02 Feb 2022 10:56
--- NOTE | 2022-02-02 11:54 | CA ---
Dobutamine Stress Echocardiogram Report Renay Meneses Age: 51 Gender: F : 1970 Exam Date: 02/02/2022 11:07 Exam Location: [facility] Ordering Physician: Brianna Garcia Referring Physician: ,, Dry Cure Worker: Maral Ocampo RDCS Technologist: Ht (in): 62 Wt (lb): 167 Procedure CPT: Indication: Chest Pain ICD-9 Codes: Rhythm: Patient History: Cardiac Medications: Medications in past 24 hours: Contrast: Total Dose (mL): Stress Results Protocol: Peak Dose (???g/kg/min): 30 Duration (min:sec): Atropine:(mg) Target HR: 145 Double Product: [id number] Resting HR: 65 Resting BP: 148 / 104 Peak HR: 144 Peak BP: 155 / 64 Max Predicted HR: 170 85 % Max Predicted HR Stress Summary: BP Response: Reason for Termination: Cardiac Symptoms: ECG Analysis Resting EKG: Normal sinus rhythm normal axis normal intervals Stress EKG: No evidence of diagnostic ST segment depression Arrhythmia: No significant cardiac arrhythmia Echo Analysis Base Echo Analysis: Normal left ventricle size wall motion systolic function Endocardial visualization enhanced by contrast Low Echo Anaylsis: Normal response Peak Echo Analysis: Normal hyperdynamic response Recovery Echo: Normal MEASUREMENTS (Male/Female) Normal Values CONCLUSIONS Negative stress test by EKG criteria Negative dobutamine stress echo Dr. Dano Douglas MD (Electronically Signed) Final Date: 02 Feb 2022 11:53
[2022-02-02 15:46] VITALS: BP 154/94; PULSE 70
--- NOTE | 2022-02-02 15:57 | P.DS ---
Providers Date of admission: 02/01/22 20:34 Expected date of discharge: 02/02/22 Attending physician: Shelbie Juares MD Consults: 02/01/22 20:34 Consult Physician Urgent Consulting Provider: [facility] Consult Reason/Comments: Chest pain Do you want consulting provider notified?: Yes Primary care physician: Ja Boyer MD Hospital Course: The patient is a 51-year-old female with a PMH of hypertension, hyperlipidemia, adrenal insufficiency, fibromyalgia, COPD, and seizure disorder who presented to the emergency room with complaints of chest discomfort. The patient was given sublingual nitroglycerin and aspirin 325 in route to the hospital. EKG in emergency room revealed sinus rhythm at 88 bpm with T-wave inversion in lead 3. Chest x-ray was unremarkable. Laboratory evaluation was remarkable for troponin of 0.035 and MCV 107.4. At time of interview, the patient reported that her pain had significantly improved throughout the day, and was currently at a 2 out of 10, pressure-like, substernal, nonradiating. She denied experiencing lower extremity pain or swelling. Atypical Chest Pain -Admitted to observation with telemetry. Troponins trended negative. Cardiology consulted and recommended echo and dobutamine stress test. Echo had normal EF, no diastolic dysfunction, no major valvular pathology, no WMA. Dobutamine stress test was negative for WMA upon injection of dobutamine. Pt was treated with ASA/Statin. Lipids were elevated. On d/c patient was discharged on all home meds, no new medication changes. Asked to f/u with PCP, and cardiology as needed. Chronic conditions: Hypertension, hyperlipidemia, seizure disorder, COPD -Continue with home meds, no changes on discharge Gen: awake, alert HEENT: normocephalic, atraumatic, good hearing acuity, moist mucous membranes Resp: good air exchange, breathing comfortably with no accessory muscle use CVS: good distal perfusion x 4, GI: soft, NTTP, ND : no SPT, no CVAT, rick catheter not present MSK: no pitting edema, no clubbing Neuro: non-focal, moving all extremities Psych: cooperative, euthymic mood Patient Condition at Discharge: Good Plan - Discharge Summary Discharge Rx Participant: No New Discharge Prescriptions: New Aspirin 81 mg PO DAILY Acetaminophen Tab [Tylenol] 650 mg PO Q6HR PRN tab PRN Reason: Fever And/ Or Pain Continue estradioL [Estrace] 1 mg PO HS oxyCODONE-APAP 10-325MG [Percocet 10-325 mg] 1 tab PO QID Hydrocortisone [Cortef] 10 mg PO DAILY ARIPiprazole [Abilify] 20 mg PO HS 30 Days tab carBAMazepine [TEGretol XR] 400 mg PO HS 30 Days tab.er.12h diphenhydrAMINE [Benadryl] 50 mg PO Q8H PRN PRN Reason: allergic reaction/ allergy sym Diazepam [Valium] 10 mg PO Q8H PRN PRN Reason: Anxiety Chlorhexidine Gluconate [Peridex] 15 ml PO BID Atorvastatin [Lipitor] 40 mg PO HS Gabapentin 600 mg PO TID Hydrocortisone [Cortef] 5 mg PO HS Albuterol Inhaler [Ventolin Hfa Inhaler] 2 puff INHALATION RT-Q6H PRN PRN Reason: Shortness Of Breath Discharge Medication List estradioL [Estrace] 1 mg PO HS 07/19/16 [History] Hydrocortisone [Cortef] 10 mg PO DAILY 07/21/20 [History] oxyCODONE-APAP 10-325MG [Percocet 10-325 mg] 1 tab PO QID 07/21/20 [History] ARIPiprazole [Abilify] 20 mg PO HS 30 Days tab 11/12/20 [Rx] carBAMazepine [TEGretol XR] 400 mg PO HS 30 Days tab.er.12h 11/12/20 [Rx] Diazepam [Valium] 10 mg PO Q8H PRN 02/08/21 [History] Gabapentin 600 mg PO TID 02/08/21 [History] Hydrocortisone [Cortef] 5 mg PO HS 02/08/21 [History] diphenhydrAMINE [Benadryl] 50 mg PO Q8H PRN 02/08/21 [History] Albuterol Inhaler [Ventolin Hfa Inhaler] 2 puff INHALATION RT-Q6H PRN 02/01/22 [History] Atorvastatin [Lipitor] 40 mg PO HS 02/01/22 [History] Chlorhexidine Gluconate [Peridex] 15 ml PO BID 02/01/22 [History] Acetaminophen Tab [Tylenol] 650 mg PO Q6HR PRN tab 02/02/22 [Rx] Aspirin 81 mg PO DAILY 02/02/22 [Rx] Follow up Appointment(s)/Referral(s): Ja Boyer MD [Primary Care Provider] - 02/07/22 11:00 am Patient Instructions/Handouts: Chest Pain (DC) Discharge Disposition: HOME SELF-CARE
== END 2022-02-02 16:19 | disposition home or self-care (01) ==
LOC: EC 14:51 → 3SCARD 20:34
PROVIDERS: ADMIT Internal Medicine; ATTEND Internal Medicine
DX: R07.89 Other chest pain (principal); R06.02 Shortness of breath; R61 Generalized hyperhidrosis; R11.0 Nausea; I10 Essential (primary) hypertension; E78.5 Hyperlipidemia, unspecified; G40.909 Epilepsy, unspecified, not intractable, without status epilepticus; J44.9 Chronic obstructive pulmonary disease, unspecified; E78.00 Pure hypercholesterolemia, unspecified; E27.40 Unspecified adrenocortical insufficiency; M79.7 Fibromyalgia; K21.9 Gastro-esophageal reflux disease without esophagitis; M19.90 Unspecified osteoarthritis, unspecified site; G89.29 Other chronic pain; E03.9 Hypothyroidism, unspecified; F10.20 Alcohol dependence, uncomplicated; N39.44 Nocturnal enuresis; F41.9 Anxiety disorder, unspecified; F31.9 Bipolar disorder, unspecified; F17.210 Nicotine dependence, cigarettes, uncomplicated; R77.8 Other specified abnormalities of plasma proteins; M54.12 Radiculopathy, cervical region; Z20.822 Contact with and (suspected) exposure to COVID-19; Z87.01 Personal history of pneumonia (recurrent); Z86.14 Personal history of Methicillin resistant Staphylococcus aureus infection; Z91.51 Personal history of suicidal behavior; Z85.41 Personal history of malignant neoplasm of cervix uteri; Z79.899 Other long term (current) drug therapy; Z79.890 Hormone replacement therapy; Z79.891 Long term (current) use of opiate analgesic; Z91.041 Radiographic dye allergy status; Z91.012 Allergy to eggs; Z88.0 Allergy status to penicillin; Z88.2 Allergy status to sulfonamides; Z91.018 Allergy to other foods; Z90.49 Acquired absence of other specified parts of digestive tract; Z90.710 Acquired absence of both cervix and uterus; Z98.82 Breast implant status; Z98.1 Arthrodesis status; Z82.49 Family history of ischemic heart disease and other diseases of the circulatory system; Z81.8 Family history of other mental and behavioral disorders; Z83.511 Family history of glaucoma; Z81.1 Family history of alcohol abuse and dependence; Z83.3 Family history of diabetes mellitus; Z80.3 Family history of malignant neoplasm of breast
CPT/HCPCS: 96372; 96360; 96361; 99285; 36415; 93005; 93306; 80061; 80053; 83735; 84484; 85025; 85610; 85730; 87635; 71046; G0378 ×2; C8930; J1250; Q9950; J1644; 93351

== ENCOUNTER → 2022-03-02 | Outpatient (CLI) | payer MEDICARE, OTHER ==
--- NOTE | 2022-03-04 13:57 | CTL ---
EXAMINATION TYPE: CT Low Dose Lung DATE OF EXAM ORDERED: 03/02/2022 HISTORY: Low dose technique for. Lung cancer screening CT DLP: 82.[address] CTDI: 2.10 mGy Automated exposure control for dose reduction was used. SCREENING VISIT: 1 COMPARISON: None TECHNIQUE: Low dose computed tomography scan was performed through the chest at 1 mm thick sections a nd reconstructed images in multiple planes at 1 mm and [address] DIAGNOSTIC QUALITY: Satisfactory FINDINGS: There are no suspicious lung masses or nodules. There is no airspace consolidation or interstitial density. There is no pleural effusion or pneumothorax. There is marked emphysematous change. There is no mediastinal, hilar or axillary adenopathy. There are bilateral breast implants. The osseous structures are intact. IMPRESSION: 1. Lung RADS category 1 2. marked emphysematous disease. 3. No acute cardiopulmonary disease. 4. Continue routine screening with low-dose chest CT at yearly intervals.
== END | disposition home or self-care (01) ==
LOC: RADCTMAIN 17:23
PROVIDERS: ATTEND Internal Medicine
DX: Z12.2 Encounter for screening for malignant neoplasm of respiratory organs (principal); Z87.891 Personal history of nicotine dependence
CPT/HCPCS: 71271

== ENCOUNTER 2022-03-16 07:29 | Day surgery (SDC) | payer MEDICARE, OTHER ==
[2022-03-16] MEDS ORDERED: LACTATED RINGERS 1,000 ML IV SCH (07:45)
[2022-03-16] MEDS ORDERED: LIDOCAINE 1% (10MG/ML) FOR IV START INTRADERMA PRN (07:45)
[2022-03-16 07:50] VITALS: TEMP 97.9
[2022-03-16] MEDS ORDERED: LACTATED RINGERS 1,000 ML IV ONE (07:52)
[2022-03-16 08:05] LABS: Glucose,Whole Blood 99 mg/dL (70-110)
[2022-03-16] MEDS ORDERED: HYDROCORTISONE SUCCINATE 100 MG/2 ML VIAL IVP ONE (08:06)
[2022-03-16] MEDS ORDERED: PROPOFOL 10 MG/ML 20 ML VIAL IV ONE (09:00)
[2022-03-16] MEDS ORDERED: LIDOCAINE 2% INJ 20 MG/ML (2 ML VIAL) ONE (09:00)
--- NOTE | 2022-03-16 09:17 | P.PCN ---
Date of Procedure: 03/16/22 Procedure(s) Performed: Brief history: Patient is a pleasant 52-year-old white female scheduled for an elective upper endoscopy as well as colonoscopy as a part of evaluation of GERD and chronic diarrhea of 4 months duration. She is been having bowel movements anywhere from 5-6 a day which are loose to watery in consistency with no blood in the stool. Procedure performed: Esophagogastroduodenoscopy with biopsy Colonoscopy with biopsy Preoperative diagnosis: GERD Chronic diarrhea Anesthesia: MAC Procedure: After informed consent was obtained from the patient was brought into the endoscopy unit and IV sedation was administered by anesthesia under continuous monitoring. Initially upper endoscopy was done. The Olympus GF 160 video endoscope was inserted inserted into the mouth and esophagus intubated without any difficulty and was gradually advanced into the stomach and duodenum and carefully examined. The bulb and second part of the duodenum appeared normal. Biopsies were done from the duodenum to rule out celiac disease. The scope was then withdrawn into the stomach adequately insufflated with air and upon careful examination the antrum had mild gastritis and biopsies were done from this area. The body, cardia and fundus appeared normal. The scope was then withdrawn into the esophagus. The GE junction was located at 40 cm to the incisors. It appeared regular with no erythema erosions or ulcerations. Rest of the esophagus appeared normal. Patient tolerated the procedure well. At this time the patient continued to remain sedation. Initial digital rectal examination was normal. Olympus CF 160 video colonoscope was then inserted into the rectum and gradually advanced to the cecum without any difficulty. Careful examination was performed as the scope was gradually being withdrawn. The prep was excellent. The cecum, ascending colon, transverse colon, descending colon, sigmoid colon and rectum appeared normal. Random biopsies were done from ascending and descending colon to rule out microscopic/collagenous colitis. In the rectum there was a 5 mm polyp that was removed by cold biopsy. Retroflexion was performed in the rectum and no lesions were noted. Patient tolerated the procedure well. Impression: 1. Upper endoscopy revealed mild antral gastritis but no evidence of esophagitis or peptic ulcer disease 2. Colonoscopy revealed a 5 mm rectal polyp status post cold biopsy and rest of the colon appeared normal Recommendations: Findings of this examination were discussed with the patient as well as her family. She was advised to follow with the biopsy results. If the biopsy reveals adenoma she can have a repeat colonoscopy in 5 years.
[2022-03-16 09:48] VITALS: RESP 16
[2022-03-16] MEDS ORDERED: hydrALAZINE HCL 20 MG/ML 1 ML VIAL ONE (10:02)
[2022-03-16 10:25] VITALS: BP 135/84; PULSE 74
== END 2022-03-16 10:29 | disposition home or self-care (01) ==
LOC: ORWHC2ENDO 07:29
PROVIDERS: ATTEND Internal Medicine Gastroenterology
DX: Z12.11 Encounter for screening for malignant neoplasm of colon (principal); K62.1 Rectal polyp; K29.50 Unspecified chronic gastritis without bleeding; B96.81 Helicobacter pylori [H. pylori] as the cause of diseases classified elsewhere; K21.9 Gastro-esophageal reflux disease without esophagitis; Z88.0 Allergy status to penicillin; Z88.2 Allergy status to sulfonamides; Z91.041 Radiographic dye allergy status; Z91.012 Allergy to eggs; Z91.018 Allergy to other foods; Z88.3 Allergy status to other anti-infective agents; I10 Essential (primary) hypertension; E78.5 Hyperlipidemia, unspecified; J44.9 Chronic obstructive pulmonary disease, unspecified; F17.200 Nicotine dependence, unspecified, uncomplicated; E07.9 Disorder of thyroid, unspecified; E27.40 Unspecified adrenocortical insufficiency; C53.9 Malignant neoplasm of cervix uteri, unspecified; R56.9 Unspecified convulsions; Z79.899 Other long term (current) drug therapy; Z79.891 Long term (current) use of opiate analgesic; Z80.3 Family history of malignant neoplasm of breast; Z81.8 Family history of other mental and behavioral disorders; Z82.49 Family history of ischemic heart disease and other diseases of the circulatory system; Z83.3 Family history of diabetes mellitus; Z81.1 Family history of alcohol abuse and dependence
CPT/HCPCS: 88305; 88342; 45380; 43239; J0360; J1720; J2704; J2001

== ENCOUNTER 2022-03-26 11:46 | Emergency (ER) | payer MEDICARE, OTHER ==
[2022-03-26] MEDS ORDERED: SODIUM CHLORIDE 0.9% 500 ML 500 ML IV STA (12:00)
[2022-03-26] MEDS ORDERED: SODIUM CHLORIDE 0.9% 1,000 ML IV STA (12:00)
[2022-03-26] MEDS ORDERED: ONDANSETRON 4 MG/2 ML VIAL IVP STA (12:01)
[2022-03-26] MEDS ORDERED: LORazepam 2 MG/ML INJ IV STA (12:01)
[2022-03-26 12:48] LABS: Basophils # (A) 0.1 k/uL (0-0.2); Basophils % (A) 1 %; Eosinophils # (A) 0.1 k/uL (0-0.7); Eosinophils % (A) 1 %; HCT 43.8 % (34.0-46.0); HGB 15.1 gm/dL (11.4-16.0); Lymphocytes # (A) 1.1 k/uL (1.0-4.8); Lymphocytes % (A) 15 %; MCH 36.6 pg (25.0-35.0); MCHC 34.4 g/dL (31.0-37.0); MCV 106.6 fL (80.0-100.0); Macrocytosis Moderate; Monocytes # (A) 0.3 k/uL (0-1.0); Monocytes % (A) 4 %; Neutrophils # (A) 5.6 k/uL (1.3-7.7); Neutrophils % (A) 78 %; Platelet Count 274 k/uL (150-450); RBC 4.11 m/uL (3.80-5.40); RDW 12.6 % (11.5-15.5); WBC 7.1 k/uL (3.8-10.6)
[2022-03-26 12:55] LABS: ALT 12 U/L (4-34); African American GFR (CKD) >90 (>60 ml/min/1.73 sqM); Albumin 4.4 g/dL (3.5-5.0); Anion Gap 12 mmol/L; Blood Urea Nitrogen 7 mg/dL (7-17); Calcium 9.4 mg/dL (8.4-10.2); Carbon Dioxide 20 mmol/L (22-30); Chloride 105 mmol/L (98-107); Glucose 101 mg/dL (74-99); Non-African American GFR(CKD) >90 (>60 ml/min/1.73 sqM); Sodium 137 mmol/L (137-145); Total Bilirubin 0.9 mg/dL (0.2-1.3); Total Protein 7.3 g/dL (6.3-8.2)
[2022-03-26 12:56] LABS: AST 23 U/L (14-36); Alkaline Phosphatase 99 U/L (38-126); Magnesium 1.8 mg/dL (1.6-2.3); Potassium 4.4 mmol/L (3.5-5.1)
--- NOTE | 2022-03-26 13:03 | ED ---
General Adult HPI - General Chief complaint: Chest Pain Stated complaint: chest pressure Time Seen by Provider: 03/26/22 11:50 Source: patient, RN notes reviewed, old records reviewed Mode of arrival: EMS Limitations: no limitations - History of Present Illness Initial comments: This is a 52-year-old female is brought to the emergency department complaining that she has been nauseated the last month and has been eating a lot. Patient states today she got extremely anxious and felt some tightness in her chest and tingling down both arms and both legs. Patient states she thinks it's just her anxiety because she just had her best friend recently. Patient denies any difficulty breathing. Patient denies any shortness of breath. Patient states she has had a dry cough recently. Patient denies any abdominal pain. Patient denies any swelling legs or calf tenderness. - Related Data Home Medications Medication Instructions Recorded Confirmed Hydrocortisone [Cortef] 10 mg PO QAM 07/21/20 03/14/22 oxyCODONE-APAP 10-325MG [Percocet 1 tab PO QID 07/21/20 03/14/22 10-325 mg] Hydrocortisone [Cortef] 5 mg PO 1300 02/08/21 03/14/22 diazePAM [Valium] 10 mg PO Q8H PRN 02/08/21 03/14/22 diphenhydrAMINE [Benadryl] 50 mg PO DAILY PRN 02/08/21 03/14/22 Albuterol Inhaler [Ventolin Hfa 2 puff INHALATION RT-Q6H PRN 02/01/22 03/14/22 Inhaler] Atorvastatin [Lipitor] 40 mg PO HS 02/01/22 03/14/22 Chlorhexidine Gluconate [Peridex] 15 ml PO BID 02/01/22 03/14/22 Nitroglycerin 0.4 mg SL DIRECTED PRN 03/14/22 03/14/22 Previous Rx's Medication Instructions Recorded ARIPiprazole [Abilify] 20 mg PO HS 30 Days tab 11/12/20 carBAMazepine [TEGretol XR] 400 mg PO HS 30 Days tab.er.12h 11/12/20 Acetaminophen Tab [Tylenol] 650 mg PO Q6HR PRN tab 02/02/22 Allergies Allergy/AdvReac Type Severity Reaction Status Date / Time Penicillins Allergy Severe Anaphylaxis Verified 03/14/22 15:39 Iodinated Contrast Media Allergy Unknown Rash/Hives Verified 03/14/22 15:39 [Iodinated Contrast Media - IV Dye] egg yolk Allergy Unknown Verified 03/14/22 15:39 mustard Allergy Unknown Verified 03/14/22 15:39 Sulfa (Sulfonamide Allergy Unknown Verified 03/14/22 15:39 Antibiotics) sulfamethoxazole Allergy Rash/Hives Verified 03/14/22 15:39 [From Bactrim] trimethoprim [From Bactrim] Allergy Rash/Hives Verified 03/14/22 15:39 Review of Systems ROS Statement: Those systems with pertinent positive or pertinent negative responses have been documented in the HPI. ROS Other: All systems not noted in ROS Statement are negative. Past Medical History Past Medical History: Cancer, COPD, Fibromyalgia, GERD/Reflux, Hyperlipidemia, Hypertension, Osteoarthritis (OA), Pneumonia, Seizure Disorder, Thyroid Disorder Additional Past Medical History / Comment(s): 03/14/22 LAST SEIZURE SEVERAL MONTHS AGO. H-pylori, arthritis in multiple joints, compression fracture L1 with chronic pain, last seizure in 2018 or 2019-pt unsure, hypothyroid, pt states she is an alcoholic, states that she drinks about "3 cap fulls of alcohol everyday", past elevated liver function tests, L breast "lump" being monitored, pt states past week she has had stomach pain after eating and past 2 weeks she has had blurry vision/bed wetting. Cervical CA with hysterectomy. Adrenal insuf ficency. History of Any Multi-Drug Resistant Organisms: MRSA Date of last positivie culture/infection: NOVEMBER 2012 MDRO Source:: RT ELBOW Past Surgical History: Adenoidectomy, Breast Surgery, Cholecystectomy, Hysterectomy, Orthopedic Surgery, Tonsillectomy, Tubal Ligation Additional Past Surgical History / Comment(s): Bilateral breast implants, bilateral oophorectomy d/t cysts, EGDs, EGD with dilation, susu fundoplication with revision, R elbow surgery for MRSA infection, R rotator cuff repair, low back surgery (cemented), bilateral hip surgery for tendon/muscle repairs/screws in place. Cervical fusion Past Anesthesia/Blood Transfusion Reactions: No Reported Reaction, Family History of Problems w/ Anesthesia Additional Past Anesthesia/Blood Transfusion Reaction / Comment(s): MOTHER= A- FIB WITH ANESTHESIA. Past Psychological History: Anxiety, Bipolar, Depression Additional Psychological History / Comment(s): Pt resides with her 9 yr old grandson who has ADHD and for whom she has full custody. She does not drive, boyfriend or family drive her places. She has a nebulizer. Smoking Status: Current every day smoker Past Alcohol Use History: Occasional Additional Past Alcohol Use History / Comment(s): Pt started smoking in 1984, 1PPD ADMITS TO ALCOHOL ABUSE, LAST DRINK 3 MONTHS AGO OF 03/14/22. Past Drug Use History: None Reported Additional Drug Use History / Comment(s): Smoked marijuana as a young woman, none since. - Past Family History Father Family Medical History: Eye Disorder, Hypertension Additional Family Medical History / Comment(s): Father committed suicide at the age of 58yrs. He had glaucoma Brother(s) Family Medical History: No Reported History Additional Family Medical History / Comment(s): She has one brother that is a recovered alcoholic with no other major medical problems. Sister(s) Additional Family Medical History / Comment(s): Patient has one sister that suffers from depression and anxiety Mother Family Medical History: Cancer, Dementia, Diabetes Mellitus, Deep Vein Thrombosis (DVT), Eye Disorder, Hypertension, Pulmonary Embolus Additional Family Medical History / Comment(s): Corneal transplant, breast cancer General Exam - General Exam Comments Initial Comments: GENERAL: Patient is well-developed and well-nourished. Patient is nontoxic and well- hydrated and is in mild distress. ENT: Neck is soft and supple. No significant lymphadenopathy is noted. Oropharynx is clear. Moist mucous membranes. Neck has full range of motion without eliciting any pain. EYES: The sclera were anicteric and conjunctiva were pink and moist. Extraocular movements were intact and pupils were equal round and reactive to light. Eyelids were unremarkable. PULMONARY: Unlabored respirations. Good breath sounds bilaterally. No audible rales rhonchi or wheezing was noted. CARDIOVASCULAR: There is a regular rate and rhythm without any murmurs gallops or rubs. ABDOMEN: Soft and nontender with normal bowel sounds. SKIN: Skin is clear with no lesions or rashes and otherwise unremarkable. NEUROLOGIC: Patient is alert and oriented x3. Cranial nerves II through XII are grossly intact. Motor and sensory are also intact. Normal speech, volume and content. Symmetrical smile. MUSCULOSKELETAL: Normal extremities with adequate strength and full range of motion. No lower extremity swelling or edema. No calf tenderness. LYMPHATICS: No significant lymphadenopathy is noted PSYCHIATRIC: Patient is mildly anxious Limitations: no limitations Course Vital Signs 03/26/22 11:52 Temperature 99.2 F Pulse Rate 99 Respiratory 18 Rate Blood Pressure 138/98 O2 Sat by Pulse 99 Oximetry Medical Decision Making - Medical Decision Making EKG shows sinus rhythm at 89 bpm OR interval is 133 QRS is 94 QT interval 350 QTC is 397. Patient's EKG shows no ST segment elevation or depression. Chest x-ray shows no acute abnormality. I went back in the The patient received Ativan and she stated she felt considerably better she also received a liter and a half fluids. Patient states she hasn't been eating for about a month because about a month ago she went through a bad break up in a few days ago she lost her girlfriend. - Lab Data Result diagrams: 03/26/22 12:29 03/26/22 12:29 Lab Results 03/26/22 03/26/22 03/26/22 Range/Units 12:29 12:29 12:29 WBC 7.1 (3.8-10.6) k/uL RBC 4.11 (3.80-5.40) m/uL Hgb 15.1 (11.4-16.0) gm/dL Hct 43.8 (34.0-46.0) % MCV 106.6 H (80.0-100.0) fL MCH 36.6 H (25.0-35.0) pg MCHC 34.4 (31.0-37.0) g/dL RDW 12.6 (11.5-15.5) % Plt Count 274 (150-450) k/uL MPV 8.0 Neutrophils % 78 % Lymphocytes % 15 % Monocytes % 4 % Eosinophils % 1 % Basophils % 1 % Neutrophils # 5.6 (1.3-7.7) k/uL Lymphocytes # 1.1 (1.0-4.8) k/uL Monocytes # 0.3 (0-1.0) k/uL Eosinophils # 0.1 (0-0.7) k/uL Basophils # 0.1 (0-0.2) k/uL Macrocytosis Moderate Sodium 137 (137-145) mmol/L Potassium 4.4 (3.5-5.1) mmol/L Chloride 105 (98-107) mmol/L Carbon Dioxide 20 L (22-30) mmol/L Anion Gap 12 mmol/L BUN 7 (7-17) mg/dL Creatinine 0.66 (0.52-1.04) mg/dL Est GFR (CKD-EPI)AfAm >90 (>60 ml/min/1.73 sqM) Est GFR (CKD-EPI)NonAf >90 (>60 ml/min/1.73 sqM) Glucose 101 H (74-99) mg/dL Calcium 9.4 (8.4-10.2) mg/dL Magnesium 1.8 (1.6-2.3) mg/dL Total Bilirubin 0.9 (0.2-1.3) mg/dL AST 23 (14-36) U/L ALT 12 (4-34) U/L Alkaline Phosphatase 99 (38-126) U/L Troponin I <0.012 (0.000-0.034) ng/mL Total Protein 7.3 (6.3-8.2) g/dL Albumin 4.4 (3.5-5.0) g/dL Disposition Clinical Impression: Anxiety Disposition: HOME SELF-CARE Instructions (If sedation given, give patient instructions): Anxiety (ED), Chest Pain (ED) Is patient prescribed a controlled substance at d/c from ED?: No Referrals: Ja Boyer MD [Primary Care Provider] - 1-2 days Time of Disposition: 13:56
--- NOTE | 2022-03-26 13:30 | XR ---
EXAMINATION TYPE: XR chest 2V DATE OF EXAM: 03/26/2022 1:05 PM COMPARISON: Chest radiographs from 02/01/2022 TECHNIQUE: XR chest 2V Frontal and lateral views of the chest. CLINICAL INDICATION:Female, 52 years old with history of Chest Pain; FINDINGS: Lungs/Pleura: There is no evidence of pleural effusion, focal consolidation, or pneumothorax. Pulmonary vascularity: Unremarkable. Heart/mediastinum: Cardiomediastinal silhouette is unremarkable. Musculoskeletal: No acute osseous pathology. There is fixation hardware in the lower cervical spine. Anchors seen within the proximal right humerus. IMPRESSION: No acute cardiopulmonary disease/process.
[2022-03-26] MEDS ORDERED: ONDANSETRON 4 MG ODT STARTER PACK 2 TAB BTL PO STA (13:56)
[2022-03-26 15:09] VITALS: BP 110/92; PULSE 81; RESP 16; TEMP 98.4
== END 2022-03-26 15:20 | disposition home or self-care (01) ==
LOC: EC 11:46
DX: F41.9 Anxiety disorder, unspecified (principal); I10 Essential (primary) hypertension; J44.9 Chronic obstructive pulmonary disease, unspecified; E78.5 Hyperlipidemia, unspecified; K21.9 Gastro-esophageal reflux disease without esophagitis; M79.7 Fibromyalgia; M19.90 Unspecified osteoarthritis, unspecified site; E03.9 Hypothyroidism, unspecified; G40.909 Epilepsy, unspecified, not intractable, without status epilepticus; F31.9 Bipolar disorder, unspecified; F17.200 Nicotine dependence, unspecified, uncomplicated; Z79.51 Long term (current) use of inhaled steroids; Z79.899 Other long term (current) drug therapy
CPT/HCPCS: 36415; 93005; 80053; 83735; 84484; 85025; 71046; 99285; 96374; 96375; J2060; J2405; S0119

== ENCOUNTER 2022-07-23 10:53 | Emergency (ER) | payer MEDICARE, OTHER ==
[2022-07-23 10:56] VITALS: RESP 16; TEMP 98.4
[2022-07-23] MEDS ORDERED: HYDROmorphone 1 MG/ML 1 ML SYRINGE IM STA (11:20)
--- NOTE | 2022-07-23 11:31 | ED ---
Back Pain HPI - General Chief Complaint: Back Pain/Injury Stated Complaint: back pain Time Seen by Provider: 07/23/22 11:09 Source: patient, RN notes reviewed Limitations: no limitations - History of Present Illness Initial Comments: 52-year-old female presents emergency Department chief complaint low back pain. Patient states started 2 days ago with no injury. Patient denies any bowel, bladder incontinence retention or saddle anesthesias. Patient states that she had an L1 fracture years ago had some kyphoplasty done. Patient states that she started to feel sore primarily on the left side. She does have some urinary frequency without dysuria no abdominal pain no chest pain or shortness breath no other associated symptoms. Patient is on current pain management takes Percocet daily. - Related Data Home Medications Medication Instructions Recorded Confirmed Hydrocortisone [Cortef] 10 mg PO QAM 07/21/20 03/14/22 oxyCODONE-APAP 10-325MG [Percocet 1 tab PO QID 07/21/20 03/14/22 10-325 mg] Hydrocortisone [Cortef] 5 mg PO 1300 02/08/21 03/14/22 diazePAM [Valium] 10 mg PO Q8H PRN 02/08/21 03/14/22 diphenhydrAMINE [Benadryl] 50 mg PO DAILY PRN 02/08/21 03/14/22 Albuterol Inhaler [Ventolin Hfa 2 puff INHALATION RT-Q6H PRN 02/01/22 03/14/22 Inhaler] Atorvastatin [Lipitor] 40 mg PO HS 02/01/22 03/14/22 Chlorhexidine Gluconate [Peridex] 15 ml PO BID 02/01/22 03/14/22 Nitroglycerin 0.4 mg SL DIRECTED PRN 03/14/22 03/14/22 Previous Rx's Medication Instructions Recorded ARIPiprazole [Abilify] 20 mg PO HS 30 Days tab 11/12/20 carBAMazepine [TEGretol XR] 400 mg PO HS 30 Days tab.er.12h 11/12/20 Acetaminophen Tab [Tylenol] 650 mg PO Q6HR PRN tab 02/02/22 Nitrofurantoin Monohyd/M-Cryst 100 mg PO Q12HR #14 cap 07/23/22 [Macrobid] Allergies Allergy/AdvReac Type Severity Reaction Status Date / Time Penicillins Allergy Severe Anaphylaxis Verified 07/23/22 10:54 Iodinated Contrast Media Allergy Unknown Rash/Hives Verified 07/23/22 10:54 [Iodinated Contrast Media - IV Dye] egg yolk Allergy Unknown Verified 07/23/22 10:54 mustard Allergy Unknown Verified 07/23/22 10:54 Sulfa (Sulfonamide Allergy Unknown Verified 07/23/22 10:54 Antibiotics) sulfamethoxazole Allergy Rash/Hives Verified 07/23/22 10:54 [From Bactrim] trimethoprim [From Bactrim] Allergy Rash/Hives Verified 07/23/22 10:54 Review of Systems ROS Statement: Those systems with pertinent positive or pertinent negative responses have been documented in the HPI. ROS Other: All systems not noted in ROS Statement are negative. Past Medical History Past Medical History: Cancer, COPD, Fibromyalgia, GERD/Reflux, Hyperlipidemia, Hypertension, Osteoarthritis (OA), Pneumonia, Seizure Disorder, Thyroid Disorder Additional Past Medical History / Comment(s): 03/14/22 LAST SEIZURE SEVERAL MONTHS AGO. H-pylori, arthritis in multiple joints, compression fracture L1 with chronic pain, last seizure in 2018 or 2019-pt unsure, hypothyroid, pt states she is an alcoholic, states that she drinks about "3 cap fulls of alcohol everyday", past elevated liver function tests, L breast "lump" being monitored, pt states past week she has had stomach pain after eating and past 2 weeks she has had blurry vision/bed wetting. Cervical CA with hysterectomy. Adrenal insufficency. History of Any Multi-Drug Resistant Organisms: MRSA Date of last positivie culture/infection: NOVEMBER 2012 MDRO Source:: RT ELBOW Past Surgical History: Adenoidectomy, Breast Surgery, Cholecystectomy, Hysterectomy, Orthopedic Surgery, Tonsillectomy, Tubal Ligation Additional Past Surgical History / Comment(s): Bilateral breast implants, bilateral oophorectomy d/t cysts, EGDs, EGD with dilation, susu fundoplication with revision, R elbow surgery for MRSA infection, R rotator cuff repair, low back surgery (cemented), bilateral hip surgery for tendon/muscle repairs/screws in place. Cervical fusion Past Anesthesia/Blood Transfusion Reactions: No Reported Reaction, Family History of Problems w/ Anesthesia Additional Past Anesthesia/Blood Transfusion Reaction / Comment(s): MOTHER= A- FIB WITH ANESTHESIA. Past Psychological History: Anxiety, Bipolar, Depression Smoking Status: Current every day smoker Past Alcohol Use History: Occasional Past Drug Use History: None Reported - Past Family History Father Family Medical History: Eye Disorder, Hypertension Additional Family Medical History / Comment(s): Father committed suicide at the age of 58yrs. He had glaucoma Brother(s) Family Medical History: No Reported History Additional Family Medical History / Comment(s): She has one brother that is a recovered alcoholic with no other major medical problems. Sister(s) Additional Family Medical History / Comment(s): Patient has one sister that suffers from depression and anxiety Mother Family Medical History: Cancer, Dementia, Diabetes Mellitus, Deep Vein Thrombosis (DVT), Eye Disorder, Hypertension, Pulmonary Embolus Additional Family Medical History / Comment(s): Corneal transplant, breast cancer General Exam Limitations: no limitations General appearance: alert, in no apparent distress Head exam: Present: atraumatic, normocephalic, normal inspection Neck exam: Present: normal inspection. Absent: tenderness, meningismus, lymphadenopathy Respiratory exam: Present: normal lung sounds bilaterally. Absent: respiratory distress, wheezes, rales, rhonchi, stridor Cardiovascular Exam: Present: regular rate, normal rhythm, normal heart sounds. Absent: systolic murmur, diastolic murmur, rubs, gallop, clicks GI/Abdominal exam: Present: soft, normal bowel sounds. Absent: distended, tenderness, guarding, rebound, rigid Extremities exam: Present: normal inspection, full ROM, normal capillary refill. Absent: tenderness, pedal edema, joint swelling, calf tenderness Back exam: Present: full ROM, tenderness, CVA tenderness (L), paraspinal tenderness. Absent: CVA tenderness (R), vertebral tenderness Neurological exam: Present: alert, oriented X3, CN II-XII intact, reflexes normal. Absent: motor sensory deficit Skin exam: Present: warm, dry, intact, normal color. Absent: rash Course Vital Signs 07/23/22 10:54 Temperature 98.4 F Pulse Rate 110 H Respiratory 16 Rate Blood Pressure 130/89 O2 Sat by Pulse 98 Oximetry Medical Decision Making - Medical Decision Making 52-year-old female presented from for back pain, primarily left-sided patient does have nitrate positive urine was treated for UTI, patient is chronic back pain was seen by pain management. Patient has no red flag symptoms. Patient discharged in stable condition return parameters were discussed. - Lab Data Lab Results 07/23/22 Range/Units 11:33 Urine Color Yellow Urine Appearance Cloudy H (Clear) Urine pH 5.5 (5.0-8.0) Ur Specific [place] 1.014 (1.001-1.035) Urine Protein Negative (Negative) Urine Glucose (UA) Negative (Negative) Urine Ketones Negative (Negative) Urine Blood Negative (Negative) Urine Nitrite Positive H (Negative) Urine Bilirubin Negative (Negative) Urine Urobilinogen <2.0 (<2.0) mg/dL Ur Leukocyte Esterase Negative (Negative) Urine RBC <1 (0-5) /hpf Urine WBC 3 (0-5) /hpf Ur Squamous Epith Cells 4 (0-4) /hpf Urine Bacteria Few H (None) /hpf Urine Mucus Occasional H (None) /hpf Disposition Clinical Impression: Back pain, UTI (urinary tract infection) Disposition: HOME SELF-CARE Condition: Stable Instructions (If sedation given, give patient instructions): Urinary Tract Infection in Women (ED) Additional Instructions: Please return to the Emergency Department if symptoms worsen or any other co ncerns. Prescriptions: Nitrofurantoin Monohyd/M-Cryst [Macrobid] 100 mg PO Q12HR #14 cap Is patient prescribed a controlled substance at d/c from ED?: No Referrals: Ja Boyer MD [REFERRING] - 1-2 days Time of Disposition: 12:54
[2022-07-23 12:37] LABS: Appearance,Urine Cloudy (Clear); Bacteria,Urine Few /hpf; Bilirubin,Urine Negative (Negative); Blood,Urine Negative (Negative); Color,Urine Yellow; Glucose,Urine (UA) Negative (Negative); Ketones,Urine Negative (Negative); Leukocyte Esterase,Urine Negative (Negative); Mucus,Urine Occasional /hpf; Nitrite,Urine Positive (Negative); PH, Urine 5.5 (5.0-8.0); Protein,Urine Negative (Negative); RBC,Urine <1 /hpf (0-5); Specific Gravity,Urine 1.014 (1.001-1.035); Squamous Epithelial Cell,Urine 4 /hpf (0-4); Urobilinogen,Urine <2.0 mg/dL (<2.0); WBC,Urine 3 /hpf (0-5)
[2022-07-23 13:09] VITALS: BP 123/81; PULSE 78
--- NOTE | 2022-07-23 14:29 | XR ---
EXAMINATION TYPE: TEMPORARY DATE OF EXAM: 07/23/2022 COMPARISON: None HISTORY: Left-sided back pain TECHNIQUE: Three-view lumbar spine FINDINGS: There are 5 lumbar-type vertebral bodies. Pedicles are intact. There is prior lumbar vertebroplasty at L1. Superior endplate compression is evident. Posterior wall displacement is not identified. Some mild superior disc space narrowing at T12-L1 may be present. Remaining disc heights are preserved. Remaining vertebral body heights are preserved. IMPRESSION: 1. No acute osseous abnormality lumbar spine. 2. Prior vertebroplasty L1
== END 2022-07-23 13:09 | disposition home or self-care (01) ==
LOC: EC 10:53
DX: M54.59 Other low back pain (principal); N39.0 Urinary tract infection, site not specified; J44.9 Chronic obstructive pulmonary disease, unspecified; K21.9 Gastro-esophageal reflux disease without esophagitis; E78.5 Hyperlipidemia, unspecified; I10 Essential (primary) hypertension; M19.90 Unspecified osteoarthritis, unspecified site; E07.9 Disorder of thyroid, unspecified; F31.9 Bipolar disorder, unspecified; F41.9 Anxiety disorder, unspecified; F17.200 Nicotine dependence, unspecified, uncomplicated; Z79.51 Long term (current) use of inhaled steroids; Z79.83 Long term (current) use of bisphosphonates; Z79.02 Long term (current) use of antithrombotics/antiplatelets; Z88.0 Allergy status to penicillin; Z91.041 Radiographic dye allergy status; Z91.012 Allergy to eggs; Z91.018 Allergy to other foods; Z88.2 Allergy status to sulfonamides
CPT/HCPCS: 81001; 72100; 99283; 96372; J1170

== ENCOUNTER → 2022-10-17 | Outpatient (CLI) | payer MEDICARE, OTHER ==
--- NOTE | 2022-10-17 14:15 | MM ---
Reason for Exam: Clinical finding. Last mammogram was performed 1 year(s) and 5 month(s) ago. Patient History: Menarche at age 13. First Full-Term at age 19. Left ovary removed at age 27. Right ovary removed at age 27. Hysterectomy at age 27. Postmenopausal. Endometrial cancer, age 27. Patient used Estrogen for 6 years. Bilateral Implants. Maternal grandmother had breast cancer, age 50. Maternal aunt had breast cancer under age 50. Mother had breast cancer, age 50. Risk Values: Angelic 5 year model risk: 1.9%. NCI Lifetime model risk: 15.8%. Tissue Density: The breast tissue is extremely dense which could obscure a lesion on mammography. Findings: Analyzed By CAD. Bilateral breast implants are redemonstrated. Occasional scattered tiny benign-appearing round calcification in the right breast is redemonstrated. Benign-appearing axillary lymph nodes redemonstrated. No obvious new mass or distortion in either breast. Overall Assessment: Incomplete: need additional imaging evaluation, BI-RAD 0 Management: Diagnostic Breast Ultrasound of the left breast. Targeted ultrasound left breast due to palpable abnormality. Electronically signed and approved by: Suhas Conde M.D.
--- NOTE | 2022-10-17 14:52 | USB ---
Patient History: Menarche at age 13. First Full-Term at age 19. Left ovary removed at age 27. Right ovary removed at age 27. Hysterectomy at age 27. Postmenopausal. Endometrial cancer, age 27. Patient used Estrogen for 6 years. Bilateral Implants. Maternal grandmother had breast cancer, age 50. Maternal aunt had breast cancer under age 50. Mother had breast cancer, age 50. Risk Values: Angelic 5 year model risk: 1.9%. NCI Lifetime model risk: 15.8%. Prior Study Comparison: 02/14/2006 Bilateral Diagnostic Mammogram, [facility]. 09/15/2017 Screening Mammogram, [facility]. 05/20/2021 Bilateral Screening Mammogram, [facility]. Findings: The upper inner quadrant of the left breast, the axilla of the left breast and the retroareolar of the left breast were scanned. Targeted ultrasound shows no worrisome solid or cystic mass. Outer contour to breast implant in the deeper tissue is noted. Overall Assessment: Negative, BI-RAD 1 Management: Screening Mammogram of both breasts in 1 year. Return to routine follow-up. Manage left-sided palpable on clinical basis. Results were given to the patient verbally at the time of exam. Electronically signed and approved by: Suhas Conde M.D.
== END | disposition home or self-care (01) ==
LOC: RADMAMWWP 13:17
PROVIDERS: ATTEND Internal Medicine
DX: N63.20 Unspecified lump in the left breast, unspecified quadrant (principal); Z78.0 Asymptomatic menopausal state; Z80.3 Family history of malignant neoplasm of breast
CPT/HCPCS: 77066; 76642; G0279; 77062

== ENCOUNTER 2022-12-12 15:47 | Emergency (ER) | payer MEDICARE, OTHER ==
--- NOTE | 2022-12-12 15:51 | ED ---
General Adult HPI - General Source: patient Mode of arrival: ambulatory <Kathleen Dela Cruz - Last Filed: 12/12/22 15:51> <Linden Jose - Last Filed: 12/12/22 21:36> - General Stated complaint: Sent by DR high chu Time Seen by Provider: 12/12/22 15:50 - History of Present Illness Initial comments: 52-year-old female presents to the emergency department with a chief complaint of abnormal labs. Patient reports multiple symptoms of headache, bila teral elbow pain, feeling feverish. He was sent in by PCP. (Kathleen Dela Cruz) This 52-year-old female resents with complaints of diffuse aches and pains. This has been present throughout her entire body. It is been going on for months. She felt as though her sodium might be high as she's been drinking a lot of energy drinks. She was not sent in by her doctor for any lab abnormalities. She denies any actual fever but states that she felt feverish at times. She denies any cough, chest pain, or shortness of breath. She does relate a history of adrenal insufficiency and stopped taking her steroid medication that was prescribed to her by her inspector agricultural commodities. She states that she stopped taking this medication several months ago as she thought it was causing her to gain weight. No other complaints or modifying factors. (Linden Jose) - Related Data Home Medications Medication Instructions Recorded Confirmed Hydrocortisone [Cortef] 10 mg PO QAM 07/21/20 03/14/22 oxyCODONE-APAP 10-325MG [Percocet 1 tab PO QID 07/21/20 03/14/22 10-325 mg] Hydrocortisone [Cortef] 5 mg PO 1300 02/08/21 03/14/22 diazePAM [Valium] 10 mg PO Q8H PRN 02/08/21 03/14/22 diphenhydrAMINE [Benadryl] 50 mg PO DAILY PRN 02/08/21 03/14/22 Albuterol Inhaler [Ventolin Hfa 2 puff INHALATION RT-Q6H PRN 02/01/22 03/14/22 Inhaler] Atorvastatin [Lipitor] 40 mg PO HS 02/01/22 03/14/22 Chlorhexidine Gluconate [Peridex] 15 ml PO BID 02/01/22 03/14/22 Nitroglycerin 0.4 mg SL DIRECTED PRN 03/14/22 03/14/22 Previous Rx's Medication Instructions Recorded ARIPiprazole [Abilify] 20 mg PO HS 30 Days tab 11/12/20 carBAMazepine [TEGretol XR] 400 mg PO HS 30 Days tab.er.12h 11/12/20 Acetaminophen Tab [Tylenol] 650 mg PO Q6HR PRN tab 02/02/22 Cyclobenzaprine [Flexeril] 10 mg PO TID PRN #15 tab 07/23/22 Nitrofurantoin Monohyd/M-Cryst 100 mg PO Q12HR #14 cap 07/23/22 [Macrobid] Allergies Allergy/AdvReac Type Severity Reaction Status Date / Time Penicillins Allergy Severe Anaphylaxis Verified 12/12/22 16:00 Iodinated Contrast Media Allergy Unknown Rash/Hives Verified 12/12/22 16:00 [Iodinated Contrast Media - IV Dye] egg yolk Allergy Unknown Verified 12/12/22 16:00 mustard Allergy Unknown Verified 12/12/22 16:00 Sulfa (Sulfonamide Allergy Unknown Verified 12/12/22 16:00 Antibiotics) sulfamethoxazole Allergy Rash/Hives Verified 12/12/22 16:00 [From Bactrim] trimethoprim [From Bactrim] Allergy Rash/Hives Verified 12/12/22 16:00 Review of Systems ROS Other: All systems not noted in ROS Statement are negative. <Kathleen Dela Cruz - Last Filed: 12/12/22 15:51> ROS Other: All systems not noted in ROS Statement are negative. <Linden Jose - Last Filed: 12/12/22 21:36> ROS Statement: Those systems with pertinent positive or pertinent negative responses have been documented in the HPI. Past Medical History Past Medical History: Cancer, COPD, Fibromyalgia, GERD/Reflux, Hyperlipidemia, Hypertension, Osteoarthritis (OA), Pneumonia, Seizure Disorder, Thyroid Disorder Additional Past Medical History / Comment(s): 03/14/22 LAST SEIZURE SEVERAL MONTHS AGO. H-pylori, arthritis in multiple joints, compression fracture L1 with chronic pain, last seizure in 2018 or 2019-pt unsure, hypothyroid, pt states she is an alcoholic, states that she drinks about "3 cap fulls of alcohol everyday", past elevated liver function tests, L breast "lump" being monitored, pt states past week she has had stomach pain after eating and past 2 weeks she has had blurry vision/bed wetting. Cervical CA with hysterectomy. Adrenal insufficency. History of Any Multi-Drug Resistant Organisms: MRSA Date of last positivie culture/infection: NOVEMBER 2012 MDRO Source:: RT ELBOW Past Surgical History: Adenoidectomy, Breast Surgery, Cholecystectomy, Hysterectomy, Orthopedic Surgery, Tonsillectomy, Tubal Ligation Additional Past Surgical History / Comment(s): Bilateral breast implants, bilateral oophorectomy d/t cysts, EGDs, EGD with dilation, susu fundoplication with revision, R elbow surgery for MRSA infection, R rotator cuff repair, low back surgery (cemented), bilateral hip surgery for tendon/muscle repairs/screws in place. Cervical fusion Past Anesthesia/Blood Transfusion Reactions: No Reported Reaction, Family History of Problems w/ Anesthesia Additional Past Anesthesia/Blood Transfusion Reaction / Comment(s): MOTHER= A- FIB WITH ANESTHESIA. Past Psychological History: Anxiety, Bipolar, Depression Smoking Status: Current every day smoker Past Alcohol Use History: Occasional Past Drug Use History: None Reported - Past Family History Father Family Medical History: Eye Disorder, Hypertension Additional Family Medical History / Comment(s): Father committed suicide at the age of 58yrs. He had glaucoma Brother(s) Family Medical History: No Reported History Additional Family Medical History / Comment(s): She has one brother that is a recovered alcoholic with no other major medical problems. Sister(s) Additional Family Medical History / Comment(s): Patient has one sister that suffers from depression and anxiety Mother Family Medical History: Cancer, Dementia, Diabetes Mellitus, Deep Vein Thrombosis (DVT), Eye Disorder, Hypertension, Pulmonary Embolus Additional Family Medical History / Comment(s): Corneal transplant, breast cancer <Kathleen Dela Cruz - Last Filed: 12/12/22 15:51> General Exam <Kathleen Dela Cruz - Last Filed: 12/12/22 15:51> <Linden Jose - Last Filed: 12/12/22 21:36> - General Exam Comments Initial Comments: Visual Physical Exam Vital signs reviewed General: Well-appearing, nontoxic, no acute distress. Head: Normocephalic, atraumatic Eyes: PERRLA, EOMI ENT: Airway patent Chest: Nonlabored breathing Skin: No visual rash, normal skin tone Neuro: Alert and oriented 3 Musculoskeletal: No gross abnormalities (Kathleen Dela Cruz) GENERAL: The patient is well nourished and well hydrated. VITAL SIGNS: Heart rate, blood pressure, respiratory rate reviewed as recorded in nurse's notes. EYES: Pupils are round and reactive. Extraocular movements are intact. No conjunctival / lid redness or swelling. ENT: No external evidence of injury, swelling, or ecchymosis. Airway is patent. Throat is clear. NECK: Nontender. No swelling or evidence of injury. No subcutaneous emphysema. Trachea is midline. No thyroid mass. HEART: Regular rate and rhythm. Good peripheral pulses. LUNGS/CHEST: Breath sounds clear and equal bilaterally. No rales, rhonchi, or wheezes. No ecchymosis, subcutaneous emphysema, or tenderness. ABDOMEN: Abdomen soft without tenderness. No palpable masses or organomegaly. No peritoneal signs. No abdominal wall swelling or ecchymosis. EXTREMITIES: Mild diffuse tenderness over most joints. There is no swelling identified. Normal muscle tone and function. No thoracolumbar tenderness. NEUROLOGIC: Sensation is grossly intact. Cranial nerve exam reveals face is symmetrical, tongue is midline, speech is clear. SKIN: No abrasions or ecchymosis is noted. No induration or masses noted. PSYCHIATRIC: Alert and oriented. Appropriate behavior and judgment. (Linden Jose) Course Vital Signs 12/12/22 12/12/22 15:58 18:39 Temperature 99.3 F Pulse Rate 104 H 86 Respiratory 22 16 Rate Blood Pressure 158/104 144/99 O2 Sat by Pulse 98 96 Oximetry Medical Decision Making - Lab Data Result diagrams: 12/12/22 16:14 12/12/22 16:14 <Linden Jose - Last Filed: 12/12/22 21:36> - Medical Decision Making Was pt. sent in by a medical professional or institution (, PA, WATCH REPAIR PERSON, urgent care, hospital, or correction...) When possible be specific @ -[No] Did you speak to anyone other than the patient for history (EMS, parent, family, police, friend...)? What history was obtained from this source @ -[No] Did you review nursing and triage notes (agree or disagree)? Why? @ -[I reviewed and agree with nursing and triage notes] Were old charts reviewed (outside hosp., previous admission, EMS record, old EKG, old radiological studies, urgent care reports/EKG's, correction records)? Report findings @ -[No old charts were reviewed] Differential Diagnosis (chest pain, altered mental status, abdominal pain women, abdominal pain men, vaginal bleeding, weakness, fever, dyspnea, syncope, headache, dizziness, GI bleed, back pain, seizure, CVA, palpatations, mental health, musculoskeletal)? @ -Joint pain, polyarthritis, adrenal insufficiency, viral syndrome, fibromyalgia EKG interpreted by me (3pts min.). @ -EKG is interpreted by myself and this does show a normal sinus rhythm at a rate of 93. There is no acute ST or T-wave changes identified. The intervals are normal. X-rays interpreted by me (1pt min.). @ -[None done] CT interpreted by me (1pt min.). @ -[None done] U/S interpreted by me (1pt. min.). @ -[None done] What testing was considered but not performed or refused? (CT, X-rays, U/S, labs)? Why? @ -[None] What meds were considered but not given or refused? Why? @ -[None] Did you discuss the management of the patient with other professionals (professionals i.e. , PA, WATCH REPAIR PERSON, lab, RT, psych nurse, social services director, plow and boring machine tender, teacher, security vehicle patrol officer, skilled nursing case manager)? Give summary @ -[No] Was smoking cessation discussed for >3mins.? @ -[No] Was critical care preformed (if so, how long)? @ -[No] Were there social determinants of health that impacted care today? How? (Homelessness, low income, unemployed, alcoholism, drug addiction, transportation, low edu. Level, literacy, decrease access to med. care, prison, rehab)? @ -[No] Was there de-escalation of care discussed even if they declined (Discuss DNR or withdrawal of care, Hospice)? DNR status @ -[No] What co-morbidities impacted this encounter? (DM, HTN, Smoking, COPD, CAD, Cancer, CVA, ARF, Chemo, Hep., AIDS, mental health diagnosis, sleep apnea, morbid obesity)? @ -Adrenal insufficiency Was patient admitted / discharged? Hospital course, mention meds given and route, prescriptions, significant lab abnormalities, going to OR and other pertinent info. @ -The patient was seen and examined. All of her laboratory values are essentially within normal limits. This is related to the patient and the exact cause of her symptomatology is not definitively determined. It is felt as though she stable for discharge home and may follow-up closely with primary care. It is felt as though she should start back on her steroids as prescribed by her inspector agricultural commodities for adrenal insufficiency. She voices understanding. Return parameters are discussed. Close follow-up with her inspector agricultural commodities also recommended. Undiagnosed new problem with uncertain prognosis? @ -[No] Drug Therapy requiring intensive monitoring for toxicity (Heparin, Nitro, Insulin, Cardizem)? @ -[No] Were any procedures done? @ -[No] Diagnosis/symptom? @ -Diffuse joint pain, myalgia, adrenal insufficiency Acute, or Chronic, or Acute on Chronic? @ -Acute Uncomplicated (without systemic symptoms) or Complicated (systemic symptoms)? @ -Uncomplicated Side effects of treatment? @ -[No] Exacerbation, Progression, or Severe Exacerbation? @ -[No] Poses a threat to life or bodily function? How? (Chest pain, [place], AL, pneumonia, PE, COPD, DKA, ARF, appy, cholecystitis, CVA, Diverticulitis, Homicidal, Suicidal, threat to staff... and all critical care pts) @ -[No] (Linden Jose) - Lab Data Lab Results 12/12/22 12/12/22 12/12/22 Range/Units 16:14 16:14 16:14 WBC 7.5 (3.8-10.6) k/uL RBC 4.37 (3.80-5.40) m/uL Hgb 14.8 (11.4-16.0) gm/dL Hct 43.7 (34.0-46.0) % MCV 100.1 H (80.0-100.0) fL MCH 33.9 (25.0-35.0) pg MCHC 33.9 (31.0-37.0) g/dL RDW 12.9 (11.5-15.5) % Plt Count 275 (150-450) k/uL MPV 7.2 Neutrophils % 70 % Lymphocytes % 22 % Monocytes % 4 % Eosinophils % 2 % Basophils % 0 % Neutrophils # 5.3 (1.3-7.7) k/uL Lymphocytes # 1.6 (1.0-4.8) k/uL Monocytes # 0.3 (0-1.0) k/uL Eosinophils # 0.1 (0-0.7) k/uL Basophils # 0.0 (0-0.2) k/uL Sodium 138 (137-145) mmol/L Potassium 4.1 (3.5-5.1) mmol/L Chloride 107 (98-107) mmol/L Carbon Dioxide 24 (22-30) mmol/L Anion Gap 7 mmol/L BUN 13 (7-17) mg/dL Creatinine 0.89 (0.52-1.04) mg/dL Est GFR (CKD-EPI)AfAm 87 (>60 ml/min/1.73 sqM) Est GFR (CKD-EPI)NonAf 75 (>60 ml/min/1.73 sqM) Glucose 102 H (74-99) mg/dL Calcium 9.6 (8.4-10.2) mg/dL Magnesium 1.8 (1.6-2.3) mg/dL Total Bilirubin 0.6 (0.2-1.3) mg/dL AST 28 (14-36) U/L ALT 33 (4-34) U/L Alkaline Phosphatase 118 (38-126) U/L Troponin I <0.012 (0.000-0.034) ng/mL Total Protein 7.3 (6.3-8.2) g/dL Albumin 4.4 (3.5-5.0) g/dL Influenza Type A (PCR) (Not Detectd) Influenza Type B (PCR) (Not Detectd) RSV (PCR) (Not Detectd) SARS-CoV-2 (PCR) (Not Detectd) 12/12/22 Range/Units 16:25 WBC (3.8-10.6) k/uL RBC (3.80-5.40) m/uL Hgb (11.4-16.0) gm/dL Hct (34.0-46.0) % MCV (80.0-100.0) fL MCH (25.0-35.0) pg MCHC (31.0-37.0) g/dL RDW (11.5-15.5) % Plt Count (150-450) k/uL MPV Neutrophils % % Lymphocytes % % Monocytes % % Eosinophils % % Basophils % % Neutrophils # (1.3-7.7) k/uL Lymphocytes # (1.0-4.8) k/uL Monocytes # (0-1.0) k/uL Eosinophils # (0-0.7) k/uL Basophils # (0-0.2) k/uL Sodium (137-145) mmol/L Potassium (3.5-5.1) mmol/L Chloride (98-107) mmol/L Carbon Dioxide (22-30) mmol/L Anion Gap mmol/L BUN (7-17) mg/dL Creatinine (0.52-1.04) mg/dL Est GFR (CKD-EPI)AfAm (>60 ml/min/1.73 sqM) Est GFR (CKD-EPI)NonAf (>60 ml/min/1.73 sqM) Glucose (74-99) mg/dL Calcium (8.4-10.2) mg/dL Magnesium (1.6-2.3) mg/dL Total Bilirubin (0.2-1.3) mg/dL AST (14-36) U/L ALT (4-34) U/L Alkaline Phosphatase (38-126) U/L Troponin I (0.000-0.034) ng/mL Total Protein (6.3-8.2) g/dL Albumin (3.5-5.0) g/dL Influenza Type A (PCR) Not Detected (Not Detectd) Influenza Type B (PCR) Not Detected (Not Detectd) RSV (PCR) Not Detected (Not Detectd) SARS-CoV-2 (PCR) Not Detected (Not Detectd) Disposition <Kathleen Dela Cruz - Last Filed: 12/12/22 15:51> Is patient prescribed a controlled substance at d/c from ED?: No Time of Disposition: 18:14 <Linden Jose - Last Filed: 12/12/22 21:36> Clinical Impression: Myalgia, Adrenal insufficiency, Noncompliance with medication regimen, Hypertension Disposition: HOME SELF-CARE Condition: Good Instructions (If sedation given, give patient instructions): Musculoskeletal Pain (ED) Additional Instructions: Please take Motrin or Tylenol if needed for pain. We recommend close follow-up with your inspector agricultural commodities in the next 2-4 days. We also recommend that he get back on her steroids for your adrenal insufficiency as soon as possible. Referrals: Ja Boyer MD [Primary Care Provider] - 1-2 days
[2022-12-12 16:00] VITALS: TEMP 99.3
[2022-12-12 16:24] LABS: Basophils % (A) 0 %; Eosinophils # (A) 0.1 k/uL (0-0.7); Eosinophils % (A) 2 %; HCT 43.7 % (34.0-46.0); HGB 14.8 gm/dL (11.4-16.0); Lymphocytes # (A) 1.6 k/uL (1.0-4.8); Lymphocytes % (A) 22 %; MCH 33.9 pg (25.0-35.0); MCHC 33.9 g/dL (31.0-37.0); MCV 100.1 fL (80.0-100.0); Mean Platelet Volume 7.2; Monocytes # (A) 0.3 k/uL (0-1.0); Monocytes % (A) 4 %; Neutrophils # (A) 5.3 k/uL (1.3-7.7); Neutrophils % (A) 70 %; Platelet Count 275 k/uL (150-450); RBC 4.37 m/uL (3.80-5.40); RDW 12.9 % (11.5-15.5); WBC 7.5 k/uL (3.8-10.6)
[2022-12-12 16:43] LABS: Albumin 4.4 g/dL (3.5-5.0); Calcium 9.6 mg/dL (8.4-10.2); Magnesium 1.8 mg/dL (1.6-2.3); Potassium 4.1 mmol/L (3.5-5.1); Total Bilirubin 0.6 mg/dL (0.2-1.3); Total Protein 7.3 g/dL (6.3-8.2)
[2022-12-12 18:40] VITALS: BP 144/99; PULSE 86; RESP 16
== END 2022-12-12 18:51 | disposition home or self-care (01) ==
LOC: EC 15:47
DX: M79.10 Myalgia, unspecified site (principal); I10 Essential (primary) hypertension; E27.40 Unspecified adrenocortical insufficiency; Z91.14 Patient's other noncompliance with medication regimen; E03.9 Hypothyroidism, unspecified; E78.5 Hyperlipidemia, unspecified; F31.9 Bipolar disorder, unspecified; F41.9 Anxiety disorder, unspecified; J44.9 Chronic obstructive pulmonary disease, unspecified; K21.9 Gastro-esophageal reflux disease without esophagitis; M19.90 Unspecified osteoarthritis, unspecified site; F17.200 Nicotine dependence, unspecified, uncomplicated; Z79.890 Hormone replacement therapy; Z79.899 Other long term (current) drug therapy; Z88.0 Allergy status to penicillin; Z88.1 Allergy status to other antibiotic agents; Z88.2 Allergy status to sulfonamides; Z88.8 Allergy status to other drugs, medicaments and biological substances; Z20.822 Contact with and (suspected) exposure to COVID-19
CPT/HCPCS: 36415; 80053; 83735; 84484; 85025; 87636; 93005; 99283

== ENCOUNTER 2023-04-12 14:42 | Emergency (ER) | payer MEDICARE, OTHER ==
--- NOTE | 2023-04-12 15:26 | ED ---
Back Pain HPI - General Source: patient, RN notes reviewed Limitations: no limitations - History of Present Illness MD Complaint: back pain <Pili Ford - Last Filed: 04/12/23 15:24> <Elizabeth Johnson - Last Filed: 04/13/23 22:47> - General Chief Complaint: Back Pain/Injury Stated Complaint: Poss Kidney Infection Time Seen by Provider: 04/12/23 15:24 - History of Present Illness Initial Comments: This is a 53-year-old female who presents to the emergency department for concerns of a UTI. Reports back pain and decreased urine output over the last couple of days. She has not measured any temperatures, but states that she's felt hot and cold. I performed the QuickNote portion of this chart. Signed Pili Ford PA-C. (Pili Ford) Patient is a 53-year-old female presents to the emergency department with concern for kidney infection. Patient reports low back pain which is consistent with her typical urinary tract infections. She does have dysuria and urinary frequency/urgency. She reports chills today with nausea. No reported fever. No vomiting. She does have history of kidney infections states this feels somewhat similar. (Elizabeth Johnson) - Related Data Home Medications Medication Instructions Recorded Confirmed Hydrocortisone [Cortef] 10 mg PO QAM 07/21/20 03/14/22 oxyCODONE-APAP 10-325MG [Percocet 1 tab PO QID 07/21/20 03/14/22 10-325 mg] Hydrocortisone [Cortef] 5 mg PO 1300 02/08/21 03/14/22 diazePAM [Valium] 10 mg PO Q8H PRN 02/08/21 03/14/22 diphenhydrAMINE [Benadryl] 50 mg PO DAILY PRN 02/08/21 03/14/22 Albuterol Inhaler [Ventolin Hfa 2 puff INHALATION RT-Q6H PRN 02/01/22 03/14/22 Inhaler] Atorvastatin [Lipitor] 40 mg PO HS 02/01/22 03/14/22 Chlorhexidine Gluconate [Peridex] 15 ml PO BID 02/01/22 03/14/22 Nitroglycerin 0.4 mg SL DIRECTED PRN 03/14/22 03/14/22 Previous Rx's Medication Instructions Recorded ARIPiprazole [Abilify] 20 mg PO HS 30 Days tab 11/12/20 carBAMazepine [TEGretol XR] 400 mg PO HS 30 Days tab.er.12h 11/12/20 Acetaminophen Tab [Tylenol] 650 mg PO Q6HR PRN tab 02/02/22 Cyclobenzaprine [Flexeril] 10 mg PO TID PRN #15 tab 07/23/22 Nitrofurantoin Monohyd/M-Cryst 100 mg PO Q12HR #14 cap 07/23/22 [Macrobid] Cephalexin [Keflex] 250 mg PO Q6HR #20 cap 04/12/23 Ibuprofen [Motrin] 600 mg PO Q8HR PRN #30 tab 04/12/23 Ondansetron Odt [Zofran Odt] 4 mg PO Q8HR PRN #10 tab 04/12/23 Allergies Allergy/AdvReac Type Severity Reaction Status Date / Time Penicillins Allergy Severe Anaphylaxis Verified 04/12/23 15:03 Iodinated Contrast Media Allergy Unknown Rash/Hives Verified 04/12/23 15:03 [Iodinated Contrast Media - IV Dye] egg yolk Allergy Unknown Verified 04/12/23 15:03 mustard Allergy Unknown Verified 04/12/23 15:03 Sulfa (Sulfonamide Allergy Unknown Verified 04/12/23 15:03 Antibiotics) sulfamethoxazole Allergy Rash/Hives Verified 04/12/23 15:03 [From Bactrim] trimethoprim [From Bactrim] Allergy Rash/Hives Verified 04/12/23 15:03 Review of Systems ROS Other: All systems not noted in ROS Statement are negative. <Pili Ford - Last Filed: 04/12/23 15:24> ROS Other: All systems not noted in ROS Statement are negative. <Elizabeth Johnson - Last Filed: 04/13/23 22:47> ROS Statement: Those systems with pertinent positive or pertinent negative responses have been documented in the HPI. Past Medical History Past Medical History: Cancer, COPD, Fibromyalgia, GERD/Reflux, Hyperlipidemia, Hypertension, Osteoarthritis (OA), Pneumonia, Seizure Disorder, Thyroid Disorder Additional Past Medical History / Comment(s): 03/14/22 LAST SEIZURE SEVERAL MONTHS AGO. H-pylori, arthritis in multiple joints, compression fracture L1 with chronic pain, last seizure in 2018 or 2019-pt unsure, hypothyroid, pt stat es she is an alcoholic, states that she drinks about "3 cap fulls of alcohol everyday", past elevated liver function tests, L breast "lump" being monitored, pt states past week she has had stomach pain after eating and past 2 weeks she has had blurry vision/bed wetting. Cervical CA with hysterectomy. Adrenal insufficency. History of Any Multi-Drug Resistant Organisms: MRSA Date of last positivie culture/infection: NOVEMBER 2012 MDRO Source:: RT ELBOW Past Surgical History: Adenoidectomy, Breast Surgery, Cholecystectomy, Hysterectomy, Orthopedic Surgery, Tonsillectomy, Tubal Ligation Additional Past Surgical History / Comment(s): Bilateral breast implants, bilateral oophorectomy d/t cysts, EGDs, EGD with dilation, susu fundoplication with revision, R elbow surgery for MRSA infection, R rotator cuff repair, low back surgery (cemented), bilateral hip surgery for tendon/muscle repairs/screws in place. Cervical fusion Past Anesthesia/Blood Transfusion Reactions: No Reported Reaction, Family History of Problems w/ Anesthesia Additional Past Anesthesia/Blood Transfusion Reaction / Comment(s): MOTHER= A- FIB WITH ANESTHESIA. Past Psychological History: Anxiety, Bipolar, Depression Smoking Status: Current every day smoker Past Alcohol Use History: Occasional Past Drug Use History: None Reported - Past Family History Father Family Medical History: Eye Disorder, Hypertension Additional Family Medical History / Comment(s): Father committed suicide at the age of 58yrs. He had glaucoma Brother(s) Family Medical History: No Reported History Additional Family Medical History / Comment(s): She has one brother that is a recovered alcoholic with no other major medical problems. Sister(s) Additional Family Medical History / Comment(s): Patient has one sister that suffers from depression and anxiety Mother Family Medical History: Cancer, Dementia, Diabetes Mellitus, Deep Vein Thrombosis (DVT), Eye Disorder, Hypertension, Pulmonary Embolus Additional Family Medical History / Comment(s): Corneal transplant, breast cancer <Pili Ford - Last Filed: 04/12/23 15:24> General Exam Limitations: no limitations <Pili Ford - Last Filed: 04/12/23 15:24> General appearance: alert, in no apparent distress Respiratory exam: Present: normal lung sounds bilaterally. Absent: respiratory distress, wheezes, rales, rhonchi, stridor Cardiovascular Exam: Present: regular rate, normal rhythm, normal heart sounds. Absent: systolic murmur, diastolic murmur, rubs, gallop, clicks GI/Abdominal exam: Present: soft, normal bowel sounds. Absent: distended, tenderness, guarding, rebound, rigid Back exam: Absent: CVA tenderness (R), CVA tenderness (L) Neurological exam: Present: alert Psychiatric exam: Present: normal affect, normal mood <Elizabeth Johnson - Last Filed: 04/13/23 22:47> - General Exam Comments Initial Comments: Visual Physical Exam Vital signs reviewed General: Well-appearing, nontoxic, no acute distress. Head: Normocephalic, atraumatic Eyes: PERRLA, EOMI ENT: Airway patent Chest: Nonlabored breathing Skin: No visual rash, normal skin tone Neuro: Alert and oriented 3 Musculoskeletal: No gross abnormalities (VogleyPili) Course Vital Signs 04/12/23 04/12/23 04/12/23 15:00 16:48 17:52 Temperature 97.7 F 99.1 F 99.4 F Pulse Rate 110 H 87 71 Respiratory 20 20 17 Rate Blood Pressure 147/95 154/98 149/95 O2 Sat by Pulse 98 99 99 Oximetry 04/12/23 18:43 Temperature 98.5 F Pulse Rate 68 Respiratory 17 Rate Blood Pressure 134/78 O2 Sat by Pulse 100 Oximetry Medical Decision Making - Lab Data Result diagrams: 04/12/23 17:19 04/12/23 17:19 <Elizabeth Johnson - Last Filed: 04/13/23 22:47> - Medical Decision Making Was pt. sent in by a medical professional or institution (, PA, JOURNEYMAN WELDER, urgent care, hospital, or retirement...) When possible be specific @ -No Did you speak to anyone other than the patient for history (EMS, parent, family, police, friend...)? What history was obtained from this source @ -No Did you review nursing and triage notes (agree or disagree)? Why? @ -I reviewed and agree with nursing and triage notes Were old charts reviewed (outside hosp., previous admission, EMS record, old EKG, old radiological studies, urgent care reports/EKG's, retirement records)? Report findings @ -No old charts were reviewed Differential Diagnosis (chest pain, altered mental status, abdominal pain women, abdominal pain men, vaginal bleeding, weakness, fever, dyspnea, syncope, headache, dizziness, GI bleed, back pain, seizure, CVA, palpatations, mental health)? @ -Kidney stone, kidney infection, urinary tract infection. This list is not meant to be all-inclusive EKG interpreted by me (3pts min.). @ -As above X-rays interpreted by me (1pt min.). @ -None done CT interpreted by me (1pt min.). @ -None done U/S interpreted by me (1pt. min.). @ -None done What testing was considered but not performed or refused? (CT, X-rays, U/S, labs)? Why? @ -None What meds were considered but not given or refused? Why? @ -None Did you discuss the management of the patient with other professionals (professionals i.e. , PA, JOURNEYMAN WELDER, lab, RT, psych nurse, director social service, heating and ventilating drafter, teacher, administrative officer, rn case manager hospice)? Give summary @ -No Was smoking cessation discussed for >3mins.? @ -No Was critical care preformed (if so, how long)? @ -No Were there social determinants of health that impacted care today? How? (Homelessness, low income, unemployed, alcoholism, drug addiction, transportation, low edu. Level, literacy, decrease access to med. care, senior care, r ehab)? @ -No Was there de-escalation of care discussed even if they declined (Discuss DNR or withdrawal of care, Hospice)? DNR status @ -No What co-morbidities impacted this encounter? (DM, HTN, Smoking, COPD, CAD, Cancer, CVA, ARF, Chemo, Hep., AIDS, mental health diagnosis, sleep apnea, morbid obesity)? @ -None Was patient admitted / discharged? Hospital course, mention meds given and route, prescriptions, significant lab abnormalities, going to OR and other pertinent info. @ -Discharged. Patient afebrile, no white count, no vomiting. She'll be treated for urinary tract infection. We discussed return parameters. Undiagnosed new problem with uncertain prognosis? @ -No Drug Therapy requiring intensive monitoring for toxicity (Heparin, Nitro, Insulin, Cardizem)? @ -No Were any procedures done? @ -No Diagnosis/symptom? @ Urinary tract infection Acute, or Chronic, or Acute on Chronic? @ -Acute Uncomplicated (without systemic symptoms) or Complicated (systemic symptoms)? @ Uncomplicated Side effects of treatment? @ -No Exacerbation, Progression, or Severe Exacerbation? @ -No Poses a threat to life or bodily function? How? (Chest pain, [place], [place], pneumonia, PE, COPD, DKA, ARF, appy, cholecystitis, CVA, Diverticulitis, Homicidal, Suicidal, threat to staff... and all critical care pts) @ -No Dr. Brooks is my attending (Elizabeth Johnson) - Lab Data Lab Results 04/12/23 04/12/23 04/12/23 Range/Units 17:03 17:19 17:19 WBC 6.6 (3.8-10.6) k/uL RBC 4.52 (3.80-5.40) m/uL Hgb 15.0 (11.4-16.0) gm/dL Hct 47.5 H (34.0-46.0) % MCV 105.2 H (80.0-100.0) fL MCH 33.3 (25.0-35.0) pg MCHC 31.6 (31.0-37.0) g/dL RDW 13.0 (11.5-15.5) % Plt Count 207 (150-450) k/uL MPV 8.1 Neutrophils % 63 % Lymphocytes % 28 % Monocytes % 6 % Eosinophils % 2 % Basophils % 0 % Neutrophils # 4.1 (1.3-7.7) k/uL Lymphocytes # 1.8 (1.0-4.8) k/uL Monocytes # 0.4 (0-1.0) k/uL Eosinophils # 0.1 (0-0.7) k/uL Basophils # 0.0 (0-0.2) k/uL Macrocytosis Slight Sodium 137 (137-145) mmol/L Potassium 4.6 (3.5-5.1) mmol/L Chloride 105 (98-107) mmol/L Carbon Dioxide 22 (22-30) mmol/L Anion Gap 10 mmol/L BUN 17 (7-17) mg/dL Creatinine 0.90 (0.52-1.04) mg/dL Est GFR (CKD-EPI)AfAm 85 (>60 ml/min/1.73 sqM) Est GFR (CKD-EPI)NonAf 74 (>60 ml/min/1.73 sqM) Glucose 105 H (74-99) mg/dL Plasma Lactic Acid Matthew (0.7-2.0) mmol/L Calcium 10.4 H (8.4-10.2) mg/dL Total Bilirubin 1.3 (0.2-1.3) mg/dL AST 28 (14-36) U/L ALT 25 (4-34) U/L Alkaline Phosphatase 88 (38-126) U/L Total Protein 7.5 (6.3-8.2) g/dL Albumin 4.5 (3.5-5.0) g/dL Lipase 69 (23-300) U/L Urine Color Light [place] Urine Appearance Cloudy H (Clear) Urine pH 5.5 (5.0-8.0) Ur Specific Matthews 1.031 (1.001-1.035) Urine Protein 1+ H (Negative) Urine Glucose (UA) Negative (Negative) Urine Ketones 1+ H (Negative) Urine Blood Small H (Negative) Urine Nitrite Negative (Negative) Urine Bilirubin 1+ H (Negative) Urine Urobilinogen 2.0 (<2.0) mg/dL Ur Leukocyte Esterase Trace H (Negative) Urine RBC 7 H (0-5) /hpf Urine WBC 3 (0-5) /hpf Ur Squamous Epith Cells 26 H (0-4) /hpf Urine Bacteria Rare H (None) /hpf Urine Mucus Many H (None) /hpf 04/12/23 Range/Units 17:19 WBC (3.8-10.6) k/uL RBC (3.80-5.40) m/uL Hgb (11.4-16.0) gm/dL Hct (34.0-46.0) % MCV (80.0-100.0) fL MCH (25.0-35.0) pg MCHC (31.0-37.0) g/dL RDW (11.5-15.5) % Plt Count (150-450) k/uL MPV Neutrophils % % Lymphocytes % % Monocytes % % Eosinophils % % Basophils % % Neutrophils # (1.3-7.7) k/uL Lymphocytes # (1.0-4.8) k/uL Monocytes # (0-1.0) k/uL Eosinophils # (0-0.7) k/uL Basophils # (0-0.2) k/uL Macrocytosis Sodium (137-145) mmol/L Potassium (3.5-5.1) mmol/L Chloride (98-107) mmol/L Carbon Dioxide (22-30) mmol/L Anion Gap mmol/L BUN (7-17) mg/dL Creatinine (0.52-1.04) mg/dL Est GFR (CKD-EPI)AfAm (>60 ml/min/1.73 sqM) Est GFR (CKD-EPI)NonAf (>60 ml/min/1.73 sqM) Glucose (74-99) mg/dL Plasma Lactic Acid Matthew 1.1 (0.7-2.0) mmol/L Calcium (8.4-10.2) mg/dL Total Bilirubin (0.2-1.3) mg/dL AST (14-36) U/L ALT (4-34) U/L Alkaline Phosphatase (38-126) U/L Total Protein (6.3-8.2) g/dL Albumin (3.5-5.0) g/dL Lipase (23-300) U/L Urine Color Urine Appearance (Clear) Urine pH (5.0-8.0) Ur Specific Matthews (1.001-1.035) Urine Protein (Negative) Urine Glucose (UA) (Negative) Urine Ketones (Negative) Urine Blood (Negative) Urine Nitrite (Negative) Urine Bilirubin (Negative) Urine Urobilinogen (<2.0) mg/dL Ur Leukocyte Esterase (Negative) Urine RBC (0-5) /hpf Urine WBC (0-5) /hpf Ur Squamous Epith Cells (0-4) /hpf Urine Bacteria (None) /hpf Urine Mucus (None) /hpf Disposition <Pili Ford - Last Filed: 04/12/23 15:24> Is patient prescribed a controlled substance at d/c from ED?: No <Elizabeth Johnson - Last Filed: 04/13/23 22:47> Clinical Impression: UTI (urinary tract infection) Disposition: HOME SELF-CARE Condition: Good Instructions (If sedation given, give patient instructions): Urinary Tract Infection in Women (ED) Additional Instructions: Increase water intake. Take medication as directed. Please follow-up with your primary care provider in 1-2 days. Return to the emergency department if you experience new, concerning, or worsening symptoms. Prescriptions: Cephalexin [Keflex] 250 mg PO Q6HR #20 cap Ibuprofen [Motrin] 600 mg PO Q8HR PRN #30 tab PRN Reason: Pain Ondansetron Odt [Zofran Odt] 4 mg PO Q8HR PRN #10 tab PRN Reason: Nausea Referrals: None,Stated [Primary Care Provider] - 1-2 days
[2023-04-12] MEDS ORDERED: KETOROLAC 15 MG/ML 1 ML VIAL IVP STA (16:44)
[2023-04-12] MEDS ORDERED: SODIUM CHLORIDE 0.9% 1,000 ML IV STA (16:44)
[2023-04-12] MEDS ORDERED: ONDANSETRON 4 MG/2 ML VIAL IVP STA (16:45)
[2023-04-12 17:31] LABS: Basophils % (A) 0 %; Eosinophils # (A) 0.1 k/uL (0-0.7); Eosinophils % (A) 2 %; HCT 47.5 % (34.0-46.0); Lymphocytes # (A) 1.8 k/uL (1.0-4.8); Lymphocytes % (A) 28 %; MCH 33.3 pg (25.0-35.0); MCHC 31.6 g/dL (31.0-37.0); MCV 105.2 fL (80.0-100.0); Macrocytosis Slight; Mean Platelet Volume 8.1; Monocytes # (A) 0.4 k/uL (0-1.0); Monocytes % (A) 6 %; Neutrophils # (A) 4.1 k/uL (1.3-7.7); Neutrophils % (A) 63 %; Platelet Count 207 k/uL (150-450); RBC 4.52 m/uL (3.80-5.40); WBC 6.6 k/uL (3.8-10.6)
[2023-04-12 17:36] LABS: Appearance,Urine Cloudy (Clear); Bacteria,Urine Rare /hpf; Bilirubin,Urine 1+ (Negative); Blood,Urine Small (Negative); Color,Urine Light Orange; Glucose,Urine (UA) Negative (Negative); Ketones,Urine 1+ (Negative); Leukocyte Esterase,Urine Trace (Negative); Mucus,Urine Many /hpf; Nitrite,Urine Negative (Negative); PH, Urine 5.5 (5.0-8.0); Protein,Urine 1+ (Negative); RBC,Urine 7 /hpf (0-5); Specific Gravity,Urine 1.031 (1.001-1.035); Squamous Epithelial Cell,Urine 26 /hpf (0-4); WBC,Urine 3 /hpf (0-5)
[2023-04-12 17:46] LABS: ALT 25 U/L (4-34); AST 28 U/L (14-36); African American GFR (CKD) 85 (>60 ml/min/1.73 sqM); Albumin 4.5 g/dL (3.5-5.0); Alkaline Phosphatase 88 U/L (38-126); Anion Gap 10 mmol/L; Blood Urea Nitrogen 17 mg/dL (7-17); Calcium 10.4 mg/dL (8.4-10.2); Carbon Dioxide 22 mmol/L (22-30); Chloride 105 mmol/L (98-107); Glucose 105 mg/dL (74-99); Lipase 69 U/L (23-300); Non-African American GFR(CKD) 74 (>60 ml/min/1.73 sqM); Potassium 4.6 mmol/L (3.5-5.1); Sodium 137 mmol/L (137-145); Total Bilirubin 1.3 mg/dL (0.2-1.3); Total Protein 7.5 g/dL (6.3-8.2)
[2023-04-12 17:53] VITALS: RESP 17
[2023-04-12] MEDS ORDERED: cefTRIAXone IN SWFI 1,000 MG/10 ML SYRINGE IVP STA (18:27)
[2023-04-12 18:43] VITALS: BP 134/78; PULSE 68; TEMP 98.5
== END 2023-04-12 18:49 | disposition home or self-care (01) ==
LOC: EC 14:42
DX: N39.0 Urinary tract infection, site not specified (principal); J44.9 Chronic obstructive pulmonary disease, unspecified; I10 Essential (primary) hypertension; E78.5 Hyperlipidemia, unspecified; M19.90 Unspecified osteoarthritis, unspecified site; E03.9 Hypothyroidism, unspecified; F17.200 Nicotine dependence, unspecified, uncomplicated; Z79.899 Other long term (current) drug therapy; Z88.0 Allergy status to penicillin; Z88.1 Allergy status to other antibiotic agents; Z88.2 Allergy status to sulfonamides; Z91.012 Allergy to eggs; Z91.018 Allergy to other foods; Z91.041 Radiographic dye allergy status; Z90.49 Acquired absence of other specified parts of digestive tract
CPT/HCPCS: 36415; 80053; 83605; 83690; 85025; 81001; 99283; 96374; 96375 ×2; 96361; J2405; J0696; J1885

== ENCOUNTER 2023-05-17 12:34 | Emergency (ER) | payer MEDICARE, OTHER ==
--- NOTE | 2023-05-17 12:43 | ED ---
Wound/Laceration HPI - General Chief Complaint: Wound/Laceration Stated Complaint: object in foot Time Seen by Provider: 05/17/23 12:42 - History of Present Illness Initial Comments: Patient is a 53-year-old male presents emergency room with complaints of worsening pain, swelling, drainage from a puncture wound on her foot that she obtained approximately 2 weeks ago and was recently worsened. She went to urgent care who prescribed doxycycline which she has not been taking it. She reports last night she pressed on the area and pus came out of the puncture site. She is unsure if there is any foreign body still in the wound. She admits to [place] the [place]. She does have a low-grade temperature in the triage area however she denies any known high-grade fevers or chills at home. She is reporting generalized headaches over the last few days as well. she denies any chest pain, shortness of breath, abdominal pain, nausea or vomiting. Her past medical history as listed below was reviewed. - Related Data Home Medications Medication Instructions Recorded Confirmed Hydrocortisone [Cortef] 10 mg PO QAM 07/21/20 03/14/22 oxyCODONE-APAP 10-325MG [Percocet 1 tab PO QID 07/21/20 03/14/22 10-325 mg] Hydrocortisone [Cortef] 5 mg PO 1300 02/08/21 03/14/22 diazePAM [Valium] 10 mg PO Q8H PRN 02/08/21 03/14/22 diphenhydrAMINE [Benadryl] 50 mg PO DAILY PRN 02/08/21 03/14/22 Albuterol Inhaler [Ventolin Hfa 2 puff INHALATION RT-Q6H PRN 02/01/22 03/14/22 Inhaler] Atorvastatin [Lipitor] 40 mg PO HS 02/01/22 03/14/22 Chlorhexidine Gluconate [Peridex] 15 ml PO BID 02/01/22 03/14/22 Nitroglycerin 0.4 mg SL DIRECTED PRN 03/14/22 03/14/22 Previous Rx's Medication Instructions Recorded ARIPiprazole [Abilify] 20 mg PO HS 30 Days tab 11/12/20 carBAMazepine [TEGretol XR] 400 mg PO HS 30 Days tab.er.12h 11/12/20 Acetaminophen Tab [Tylenol] 650 mg PO Q6HR PRN tab 02/02/22 Cyclobenzaprine [Flexeril] 10 mg PO TID PRN #15 tab 07/23/22 Nitrofurantoin Monohyd/M-Cryst 100 mg PO Q12HR #14 cap 07/23/22 [Macrobid] Cephalexin [Keflex] 250 mg PO Q6HR #20 cap 04/12/23 Ibuprofen [Motrin] 600 mg PO Q8HR PRN #30 tab 04/12/23 Ondansetron Odt [Zofran Odt] 4 mg PO Q8HR PRN #10 tab 04/12/23 Fluconazole [Diflucan] 150 mg PO ONCE 2 Days #2 tab 04/14/23 clindamycin HCL [Cleocin] 300 mg PO Q8H 10 Days #30 cap 05/17/23 Allergies Allergy/AdvReac Type Severity Reaction Status Date / Time Penicillins Allergy Severe Anaphylaxis Verified 05/17/23 12:44 Iodinated Contrast Media Allergy Unknown Rash/Hives Verified 05/17/23 12:44 [Iodinated Contrast Media - IV Dye] egg yolk Allergy Unknown Verified 05/17/23 12:44 mustard Allergy Unknown Verified 05/17/23 12:44 Sulfa (Sulfonamide Allergy Unknown Verified 05/17/23 12:44 Antibiotics) sulfamethoxazole Allergy Rash/Hives Verified 05/17/23 12:44 [From Bactrim] trimethoprim [From Bactrim] Allergy Rash/Hives Verified 05/17/23 12:44 Review of Systems ROS Statement: Those systems with pertinent positive or pertinent negative responses have been documented in the HPI. ROS Other: All systems not noted in ROS Statement are negative. Past Medical History Past Medical History: Cancer, COPD, Fibromyalgia, GERD/Reflux, Hyperlipidemia, Hypertension, Osteoarthritis (OA), Pneumonia, Seizure Disorder, Thyroid Disorder Additional Past Medical History / Comment(s): 03/14/22 LAST SEIZURE SEVERAL MONTHS AGO. H-pylori, arthritis in multiple joints, compression fracture L1 with chronic pain, last seizure in 2018 or 2019-pt unsure, hypothyroid, pt states she is an alcoholic, states that she drinks about "3 cap fulls of alcohol everyday", past elevated liver function tests, L breast "lump" being monitored, pt states past week she has had stomach pain after eating and past 2 weeks she has had blurry vision/bed wetting. Cervical CA with hysterectomy. Adrenal insufficency. History of Any Multi-Drug Resistant Organisms: MRSA Date of last positivie culture/infection: NOVEMBER 2012 MDRO Source:: RT ELBOW Past Surgical History: Adenoidectomy, Breast Surgery, Cholecystectomy, Hysterectomy, Orthopedic Surgery, Tonsillectomy, Tubal Ligation Additional Past Surgical History / Comment(s): Bilateral breast implants, bilateral oophorectomy d/t cysts, EGDs, EGD with dilation, susu fundoplication with revision, R elbow surgery for MRSA infection, R rotator cuff repair, low back surgery (cemented), bilateral hip surgery for tendon/muscle repairs/screws in place. Cervical fusion Past Anesthesia/Blood Transfusion Reactions: No Reported Reaction, Family History of Problems w/ Anesthesia Additional Past Anesthesia/Blood Transfusion Reaction / Comment(s): MOTHER= A- FIB WITH ANESTHESIA. Past Psychological History: Anxiety, Bipolar, Depression Smoking Status: Current every day smoker Past Alcohol Use History: Occasional Past Drug Use History: None Reported - Past Family History Father Family Medical History: Eye Disorder, Hypertension Additional Family Medical History / Comment(s): Father committed suicide at the age of 58yrs. He had glaucoma Brother(s) Family Medical History: No Reported History Additional Family Medical History / Comment(s): She has one brother that is a recovered alcoholic with no other major medical problems. Sister(s) Additional Family Medical History / Comment(s): Patient has one sister that suffers from depression and anxiety Mother Family Medical History: Cancer, Dementia, Diabetes Mellitus, Deep Vein Thrombosis (DVT), Eye Disorder, Hypertension, Pulmonary Embolus Additional Family Medical History / Comment(s): Corneal transplant, breast cancer General Exam Limitations: no limitations General appearance: alert, in no apparent distress Head exam: Present: atraumatic, normocephalic, normal inspection Eye exam: Present: normal appearance, PERRL, EOMI. Absent: scleral icterus, conjunctival injection, periorbital swelling ENT exam: Present: normal exam, mucous membranes moist Neck exam: Present: normal inspection, full ROM Respiratory exam: Absent: respiratory distress, accessory muscle use Cardiovascular Exam: Present: regular rate GI/Abdominal exam: Absent: distended Right Foot/Toe exam: Present: full ROM, tenderness, swelling, puncture wound. Absent: ecchymosis, deformity, crepitus, dislocation, foreign body, calcaneal tenderness, nail avulsion, subungual hematoma Neurovascular tendon exam: Present: no vascular compromise Gait: observed and limited by pain Back exam: Present: normal inspection Neurological exam: Present: alert, oriented X3, CN II-XII intact Psychiatric exam: Present: normal affect, normal mood Skin exam: Present: other (puncture wound right foot medial aspect plantar surface status post I&D) Course Vital Signs 05/17/23 12:39 Temperature 99.4 F Pulse Rate 78 Respiratory 18 Rate Blood Pressure 146/98 O2 Sat by Pulse 100 Oximetry Procedures - Incision & Drainage Consent Obtained: verbal consent Site: foot (right) Anesthetic Used: lidocaine 1% I&D Cleaning Method: Chloroprep Scalpel Used: #11 I&D Drainage Obtained: Pus, Blood Culture Obtained?: Yes Patient Tolerated Procedure: well Medical Decision Making - Medical Decision Making Was pt. sent in by a medical professional or institution (, PA, BUS OPERATOR, urgent care, hospital, or alf...) When possible be specific @ -No Did you speak to anyone other than the patient for history (EMS, parent, family, police, friend...)? What history was obtained from this source @ -No Did you review nursing and triage notes (agree or disagree)? Why? @ -I reviewed and agree with nursing and triage notes Were old charts reviewed (outside hosp., previous admission, EMS record, old EKG, old radiological studies, urgent care reports/EKG's, alf records)? Report findings @ -No old charts were reviewed Differential Diagnosis (chest pain, altered mental status, abdominal pain women, abdominal pain men, vaginal bleeding, weakness, fever, dyspnea, syncope, headache, dizziness, GI bleed, back pain, seizure, CVA, palpatations, mental health, musculoskeletal)? @ -not applicable EKG interpreted by me (3pts min.). @ -None done X-rays interpreted by me (1pt min.). @ -None done CT interpreted by me (1pt min.). @ -None done U/S interpreted by me (1pt. min.). @ -None done What testing was considered but not performed or refused? (CT, X-rays, U/S, jeff bs)? Why? @ -None What meds were considered but not given or refused? Why? @ -None Did you discuss the management of the patient with other professionals (professionals i.e. , PA, BUS OPERATOR, lab, RT, psych nurse, social work instructor, director day care center, teacher, chief information security officer, bilingual case manager)? Give summary @ -No Was smoking cessation discussed for >3mins.? @ -No Was critical care preformed (if so, how long)? @ -No Were there social determinants of health that impacted care today? How? (Homelessness, low income, unemployed, alcoholism, drug addiction, transportation, low edu. Level, literacy, decrease access to med. care, [facility], rehab)? @ -No Was there de-escalation of care discussed even if they declined (Discuss DNR or withdrawal of care, Hospice)? DNR status @ -No What co-morbidities impacted this encounter? (DM, HTN, Smoking, COPD, CAD, Cancer, CVA, ARF, Chemo, Hep., AIDS, mental health diagnosis, sleep apnea, morbid obesity)? @ -None Was patient admitted / discharged? Hospital course, mention meds given and route, prescriptions, significant lab abnormalities, going to OR and other pertinent info. @ -53-year-old male presents emergency room with complaints of worsening pain, swelling, drainage from a puncture wound on her foot that she obtained approximately 2 weeks ago and was recently worsened. She went to urgent care who prescribed doxycycline which she has not been taking it. She reports last night she pressed on the area and pus came out of the puncture site. She is unsure if there is any foreign body still in the wound. Let applied to puncture site and then lidocaine was injected for incision and drainage. Wound culture was obtained. No significant foreign body was removed callus tissue was debrided and dressing was applied. Will change antibiotic therapy to oral clindamycin for improved coverage. Encouraged to keep wound clean and dry. Questions and concerns answered. Return parameters to the emergency room discussed. Will discharge home in stable condition with dressing intact on oral antibiotics for puncture wound to the right foot. Undiagnosed new problem with uncertain prognosis? @ -No Drug Therapy requiring intensive monitoring for toxicity (Heparin, Nitro, Insulin, Cardizem)? @ -No Were any procedures done? @ -Yes, incision and drainage see procedure for details Diagnosis/symptom? @ -Puncture wound right foot excluding ctes without complication Acute, or Chronic, or Acute on Chronic? @ -Acute Uncomplicated (without systemic symptoms) or Complicated (systemic symptoms)? @ -Uncomplicated Side effects of treatment? @ -No Exacerbation, Progression, or Severe Exacerbation? @ -No Poses a threat to life or bodily function? How? (Chest pain, [place], [place], pneumonia, PE, COPD, DKA, ARF, appy, cholecystitis, CVA, Diverticulitis, Homicidal, Suicidal, threat to staff... and all critical care pts) @ -No Case discussed with Dr. Sharma Disposition Clinical Impression: Puncture wound of right foot excluding toes without complication Disposition: HOME SELF-CARE Condition: Stable Additional Instructions: Keep wound clean and dry. Complete course of antibiotic as prescribed. Utilize your already prescribed Percocet and ibuprofen for pain as needed. Please follow-up with your primary care provider.Please return to the Emergency Department if symptoms worsen or any other concerns. Prescriptions: clindamycin HCL [Cleocin] 300 mg PO Q8H 10 Days #30 cap Is patient prescribed a controlled substance at d/c from ED?: No Referrals: None,Stated [Primary Care Provider] - 1-2 days Time of Disposition: 14:51
[2023-05-17] MEDS ORDERED: LIDOCAINE/EPINEPHR/TETRACAINE 5 ML BOTTLE TOPICAL ONE (14:04)
[2023-05-17] MEDS ORDERED: LIDOCAINE 1% INJ 10MG/ML (20 ML MDV) SQ ONE (14:04)
[2023-05-17 15:41] VITALS: BP 135/86; PULSE 72; RESP 16; TEMP 99.9
== END 2023-05-17 16:10 | disposition home or self-care (01) ==
LOC: EC 12:34
DX: S91.331A Puncture wound without foreign body, right foot, initial encounter (principal); E78.5 Hyperlipidemia, unspecified; I10 Essential (primary) hypertension; J44.9 Chronic obstructive pulmonary disease, unspecified; M19.90 Unspecified osteoarthritis, unspecified site; F31.9 Bipolar disorder, unspecified; F41.9 Anxiety disorder, unspecified; F17.200 Nicotine dependence, unspecified, uncomplicated; Z88.0 Allergy status to penicillin; Z88.2 Allergy status to sulfonamides; Z88.8 Allergy status to other drugs, medicaments and biological substances; Z91.012 Allergy to eggs; Z91.041 Radiographic dye allergy status; Z79.899 Other long term (current) drug therapy; X58.XXXA Exposure to other specified factors, initial encounter
CPT/HCPCS: 87070; 87205; 99283; 10060; J2001; 87077; 87186

== ENCOUNTER → 2023-06-06 | Outpatient (CLI) | payer MEDICARE, OTHER ==
[2023-06-06 17:03] LABS: ALT 31 U/L (8-44); AST 24 U/L (13-35); Albumin 4.7 d/dL (3.8-4.9); Albumin/Globulin Ratio 2.14 Ratio (1.60-3.17); Alkaline Phosphatase 85 U/L (41-126); Blood Urea Nitrogen 9.9 mg/dL (9.0-27.0); Calcium 10.1 mg/dL (8.7-10.3); Carbon Dioxide 21.4 mmol/L (21.6-31.8); Chloride 106 mmol/L (96-109); Globulin 2.2 d/dL (1.6-3.3); Glucose 94 mg/dL (70-110); Potassium 4.3 mmol/L (3.5-5.5); Sodium 141 mmol/L (135-145); T4, Free (Free Thyroxine) 0.96 ng/dL (0.80-1.80); Total Bilirubin 0.6 mg/dL (0.3-1.2); Total Protein 6.9 d/dL (6.2-8.2)
== END | disposition home or self-care (01) ==
LOC: LABWHC1 12:16
PROVIDERS: ATTEND Internal Medicine
DX: E27.40 Unspecified adrenocortical insufficiency (principal); E03.9 Hypothyroidism, unspecified; E55.9 Vitamin D deficiency, unspecified
CPT/HCPCS: 36415; 80053; 82306; 84439; 84443

== ENCOUNTER → 2023-07-17 | Outpatient (CLI) | payer MEDICARE, OTHER ==
--- NOTE | 2023-07-17 12:18 | BD ---
EXAMINATION TYPE: Axial Bone Density DATE OF EXAM: 07/17/2023 CLINICAL HISTORY: 53 years old Female. ICD-10 CODE: Z78.0 ASYMPTOMATIC MENOPAUSAL STATE Height: 70" Weight: 163.3lbs FRAX RISK QUESTIONS: Alcohol (3 or more units per day): No Family History (Parent hip fracture): No Glucocorticoids (More than 3mos): Yes, for the past 3 years, Benja's Disease (Ex: prednisone, prednisolone, methylprednisolone, dexamethasone, and hydrocortisone). History of Fracture in Adulthood: Yes Secondary Osteoporosis: 1. Type 1 Diabetes: No 2. Hyperthyroidism: No 3. Menopause before 45: Yes 4. Malnutrition: No 5. Chronic liver disease: No Rheumatoid Arthritis: No Current Tobacco Use: Yes RISK FACTORS HISTORY OF: Hip Fracture (Right/Left): No Spine Fracture: No History of Wrist Fracture: Left wrist fx When: Many years ago Surgery to Spine/Hip(right/left)/Wrist (right/left): Screws in bilateral hips due to muscle and tendo n issues, cement in L1 Family History of Osteoporosis: Yes, mothers side, grandmother Active: Yes Diet low in dairy products/other sources of calcium: No Postmenopausal woman: Yes Lost more than 2 inches in height since high school: No Frequent falls: Yes Poor Health: No Hyperparathyroidism: No Adrenal Insufficiency: No MEDICATIONS: Prednisone or other steroids: Yes How Lon years Thyroid Medications: No Osteoporosis Medications: No Additional Medications: Seizure meds, Vitamin D, steroids, flexaril, percocet Additional History: Buchanan's adrenal insufficiency, due to limited ability to scan anatomy, scanned L-2 -L4 and right wrist EXAM MEASUREMENTS: Bone mineral densitometry was performed using the [employer] ([employer]) System. Bone mineral density as measured about the Lumbar spine is: ----- L2-L4(G/cm2): 1.311 T Score Values are as follows: ----- L1: N/A ----- L2: -0.3 ----- L3: 1.1 ----- L4: 1.8 ----- L2-L4: 0.9 Z Score Values are as follows: ----- L1: N/A ----- L2: 0.0 ----- L3: 1.4 ----- L4: 2.1 ----- L1-L4: 1.2 Baseline @[facility] Bone mineral density about the R Wrist (g/cm2): 0.611 T Score values are as follows: -----Dist. R+U: -1.4 -----Prox. R+U: 0.2 -----Radius total: -1.0 Z Score values are as follows: -----Dist. R+U: -1.2 -----Prox. R+U: 0.1 -----Radius total: -0.8 Baseline @[facility] FRAX%s: N/A could not scan hips IMPRESSION: Osteopenia (T Score between -2.5 and -1). There is slightly increased risk of fracture and the patient may be considered for treatment. Re-Screen 2-5 years. NOTE: T-SCORE=SD OF THE YOUNG ADULT MEAN.
== END | disposition home or self-care (01) ==
LOC: RADBDWWP 11:00
PROVIDERS: ATTEND Family Medicine
DX: R92.8 Other abnormal and inconclusive findings on diagnostic imaging of breast (principal); M85.851 Other specified disorders of bone density and structure, right thigh; Z98.82 Breast implant status; Z78.0 Asymptomatic menopausal state
CPT/HCPCS: 77080

== ENCOUNTER 2023-09-07 08:17 | Day surgery (SDC) | payer MEDICARE, OTHER ==
[~2023-09-07 08:17] MED LIST changes: +HYDROmorphone 0.5 MG/0.5 ML SYRINGE IVP PRN; +LACTATED RINGERS 1,000 ML IV SCH; +LIDOCAINE 1% (10MG/ML) FOR IV START INTRADERMA PRN; -REGADENOSON 0.4 MG/5 ML SYRINGE IV PRN
[2023-09-07 08:54] LABS: Glucose,Whole Blood 100 mg/dL (70-110)
[2023-09-07] MEDS ORDERED: HYDROCORTISONE SUCCINATE 100 MG/2 ML VIAL IVP ONE (08:56)
[2023-09-07 09:12] VITALS: RESP 18; TEMP 97
[2023-09-07] MEDS ORDERED: PROPOFOL 10 MG/ML 20 ML VIAL IV ONE (09:31)
[2023-09-07] MEDS ORDERED: LIDOCAINE 2% (PF) 20 MG/ML 5 ML VIAL ONE (09:31)
--- NOTE | 2023-09-07 09:46 | P.OP ---
Date of Procedure: 09/07/23 Preoperative Diagnosis: GERD Postoperative Diagnosis: Antral gastritis Procedure(s) Performed: EGD Anesthesia: MAC Surgeon: Sebastian Moss Pathology: other (Antrum) Condition: stable Disposition: PACU Description of Procedure: The patient was placed on the endoscopy table in the lateral position. She re ceived IV sedation. The gastroscope placed oropharynx passed in the esophagus and stomach. Scope was placed through the pylorus. The first and second portion of the duodenum appeared normal. Scope was then brought back the antrum this. Mildly inflamed. A biopsies was performed. The scope was etcher flexed and the remainder the stomach appeared normal. The patient was coughing during the procedure. It was difficult to see if there was a hiatal hernia. The GE junction was at esophagus appeared normal. The proximal esophagus appeared normal. Scope withdrawn for patient.
[2023-09-07 10:03] VITALS: BP 120/86; PULSE 88
== END 2023-09-07 10:14 | disposition home or self-care (01) ==
LOC: ORWHC2ENDO 08:17
PROVIDERS: ATTEND Surgery
DX: K31.A11 Gastric intestinal metaplasia without dysplasia, involving the antrum (principal); K29.50 Unspecified chronic gastritis without bleeding; K21.9 Gastro-esophageal reflux disease without esophagitis; I10 Essential (primary) hypertension; E78.5 Hyperlipidemia, unspecified; F10.90 Alcohol use, unspecified, uncomplicated; J44.9 Chronic obstructive pulmonary disease, unspecified; M79.7 Fibromyalgia; M19.90 Unspecified osteoarthritis, unspecified site; G40.909 Epilepsy, unspecified, not intractable, without status epilepticus; A04.8 Other specified bacterial intestinal infections; Z88.2 Allergy status to sulfonamides; Z88.0 Allergy status to penicillin; Z91.041 Radiographic dye allergy status; Z91.012 Allergy to eggs; Z79.899 Other long term (current) drug therapy; Z90.49 Acquired absence of other specified parts of digestive tract; Z90.710 Acquired absence of both cervix and uterus; Z85.41 Personal history of malignant neoplasm of cervix uteri
CPT/HCPCS: 88305; 43239; J1720; J2704; J2001

== ENCOUNTER → 2023-09-27 | Outpatient (CLI) | payer MEDICARE, OTHER | END | disposition home or self-care (01) | LOC: RADNMMAIN 08:41 | PROVIDERS: ATTEND Family Medicine | DX: R94.31 Abnormal electrocardiogram [ECG] [EKG] (principal); I21.29 ST elevation (STEMI) myocardial infarction involving other sites ==

== ENCOUNTER 2023-10-02 12:48 | Emergency (ER) | payer MEDICARE, OTHER ==
[2023-10-02] MEDS ORDERED: SODIUM CHLORIDE 0.9% 500 ML 500 ML IV STA (13:02)
[2023-10-02] MEDS ORDERED: hydrALAZINE HCL 20 MG/ML 1 ML VIAL IVP STA (13:02)
--- NOTE | 2023-10-02 13:04 | ED ---
General Adult HPI - General Chief complaint: Chest Pain Stated complaint: CHEST PAIN Time Seen by Provider: 10/02/23 12:55 Source: patient, EMS, RN notes reviewed, old records reviewed Mode of arrival: EMS Limitations: no limitations - History of Present Illness Initial comments: This is a 53-year-old female who presents emergency department with past medical history significant for adrenal insufficiency for which she is prescribed Cortef but is not taking. Patient also has a history of high blood pressure she just started lisinopril last week she's taking 5.6. Patient also is a smoker and continues to smoke. Patient states half hour prior to arrival started having significant chest pain and radiates down both arms and she became short of raquel ath. Patient states the pain is currently subsided. Patient states she took an aspirin and the embolus. Patient states she's been having intermittent chest pain since March but this was much more significant in the pressure was much worse so she came to the emergency department. Patient denies any recent fever chills or cough. Patient has swelling in the legs or calf tenderness. - Related Data Home Medications Medication Instructions Recorded Confirmed oxyCODONE-APAP 10-325MG [Percocet 1 tab PO TID PRN 07/21/20 10/02/23 10-325 mg] diphenhydrAMINE HCL [Benadryl 25 mg PO TID 09/05/23 10/02/23 Allergy] Melatonin 5 mg PO HS 10/02/23 10/02/23 Naloxegol Oxalate [Movantik] 25 mg PO DAILY PRN 10/02/23 10/02/23 Nitrofurantoin Monohyd/M-Cryst 100 mg PO BID 10/02/23 10/02/23 [Macrobid] Omeprazole [PriLOSEC] 40 mg PO DAILY 10/02/23 10/02/23 Pantoprazole Sodium [Protonix] 40 mg PO DAILY 10/02/23 10/02/23 lisinopriL [Zestril] 5 mg PO BID 10/02/23 10/02/23 Previous Rx's Medication Instructions Recorded Cyclobenzaprine [Flexeril] 10 mg PO TID PRN #15 tab 07/23/22 Allergies Allergy/AdvReac Type Severity Reaction Status Date / Time Penicillins Allergy Severe Anaphylaxis Verified 10/02/23 13:40 Iodinated Contrast Media Allergy Unknown Rash/Hives Verified 10/02/23 13:40 [Iodinated Contrast Media - IV Dye] egg yolk Allergy Nausea Verified 10/02/23 13:40 mustard Allergy Nausea Verified 10/02/23 13:40 Sulfa (Sulfonamide Allergy Rash/Hives Verified 10/02/23 13:40 Antibiotics) sulfamethoxazole Allergy Rash/Hives Verified 10/02/23 13:40 [From Bactrim] trimethoprim [From Bactrim] Allergy Rash/Hives Verified 10/02/23 13:40 Review of Systems ROS Statement: Those systems with pertinent positive or pertinent negative responses have been documented in the HPI. ROS Other: All systems not noted in ROS Statement are negative. Past Medical History Past Medical History: Cancer, COPD, Fibromyalgia, GERD/Reflux, Hyperlipidemia, Hypertension, Osteoarthritis (OA), Pneumonia, Seizure Disorder, Thyroid Disorder Additional Past Medical History / Comment(s): LAST SEIZURE about 1 yr ago. needs to get back on tegretol .H-pylori, arthritis in multiple joints, compression fracture L1 with chronic pain, , hypothyroid, , past elevated liver function tests, L breast "lump" being monitored, she has had blurry vision tri focals./bed wetting. weak bladder Cervical CA with hysterectomy. Adrenal ins ufficency. heartburn worse, ? reoccurance of hiatal hernia. seasonal allergies. History of Any Multi-Drug Resistant Organisms: MRSA Date of last positivie culture/infection: 05/17/23 MDRO Source:: Right Foot Past Surgical History: Adenoidectomy, Breast Surgery, Cholecystectomy, Hysterectomy, Orthopedic Surgery, Tonsillectomy, Tubal Ligation Additional Past Surgical History / Comment(s): Bilateral breast implants, bilateral oophorectomy d/t cysts, EGDs, EGD with dilation, susu fundoplication with revision, R elbow surgery for MRSA infection, R rotator cuff repair, low back surgery (cemented), bilateral hip surgery for tendon/muscle repairs/screws in place. Cervical fusion C4,5,6,7 Past Anesthesia/Blood Transfusion Reactions: Family History of Problems w/ Anesthesia Additional Past Anesthesia/Blood Transfusion Reaction / Comment(s): MOTHER= A- FIB WITH ANESTHESIA. Past Psychological History: Anxiety, Bipolar, Depression Smoking Status: Current every day smoker - Past Family History Father Family Medical History: Eye Disorder, Hypertension Additional Family Medical History / Comment(s): Father committed suicide at the age of 58yrs. He had glaucoma Brother(s) Family Medical History: No Reported History Additional Family Medical History / Comment(s): She has one brother that is a recovered alcoholic with no other major medical problems. Sister(s) Additional Family Medical History / Comment(s): Patient has one sister that suffers from depression and anxiety Mother Family Medical History: Cancer, Dementia, Diabetes Mellitus, Deep Vein Thrombosis (DVT), Eye Disorder, Hypertension Additional Family Medical History / Comment(s): Corneal transplant, breast cancer General Exam - General Exam Comments Initial Comments: GENERAL: Patient is well-developed and well-nourished. Patient is nontoxic and well- hydrated and is in no acute distress. ENT: Neck is soft and supple. No significant lymphadenopathy is noted. Oropharynx is clear. Moist mucous membranes. Neck has full range of motion without eliciting any pain. EYES: The sclera were anicteric and conjunctiva were pink and moist. Extraocular movements were intact and pupils were equal round and reactive to light. Eyelids were unremarkable. PULMONARY: Unlabored respirations. Good breath sounds bilaterally. No audible rales rhonchi or wheezing was noted. CARDIOVASCULAR: There is a regular rate and rhythm without any murmurs gallops or rubs. ABDOMEN: Soft and nontender with normal bowel sounds. SKIN: Skin is clear with no lesions or rashes and otherwise unremarkable. NEUROLOGIC: Patient is alert and oriented x3. Cranial nerves II through XII are grossly intact. Motor and sensory are also intact. Normal speech, volume and content. Symmetrical smile. MUSCULOSKELETAL: Normal extremities with adequate strength and full range of motion. No lower extremity swelling or edema. No calf tenderness. LYMPHATICS: No significant lymphadenopathy is noted PSYCHIATRIC: Normal psychiatric evaluation. N Limitations: no limitations Course Vital Signs 10/02/23 10/02/23 10/02/23 12:53 13:39 14:13 Temperature 97.8 F Pulse Rate 89 93 94 Respiratory 18 18 18 Rate Blood Pressure 170/113 141/100 139/92 O2 Sat by Pulse 100 98 97 Oximetry Medical Decision Making - Medical Decision Making EKG is interpreted by myself. EKG shows sinus rhythm at 87 bpm AR interval 153 QRS is 93 QT interval 356 QTC is 400. Patient's EKG shows no ST segment elevation or depression. Was pt. sent in by a medical professional or institution (, PA, MAILING MACHINE OPERATOR, urgent care, hospital, or alf...) When possible be specific @ -No Did you speak to anyone other than the patient for history (EMS, parent, family, police, friend...)? What history was obtained from this source @ -No Did you review nursing and triage notes (agree or disagree)? Why? @ -I reviewed and agree with nursing and triage notes Were old charts reviewed (outside hosp., previous admission, EMS record, old EKG, old radiological studies, urgent care reports/EKG's, alf records)? Report findings @ -I reviewed prior charts from prior lab work on this patient Differential Diagnosis (chest pain, altered mental status, abdominal pain women, abdominal pain men, vaginal bleeding, weakness, fever, dyspnea, syncope, headache, dizziness, GI bleed, back pain, seizure, CVA, palpatations, mental health, musculoskeletal)? @ -Differential Chest Pain: Stable Angina, Unstable Angina, STEMI, NSTEMI Aortic Dissection, Pneumothorax, Musculoskeletal, Esophageal Spasm GERD, Cholecystitis, Pancreatitis, Zoster, this is not meant to be an all-inclusive list. EKG interpreted by me (3pts min.). @ -As above X-rays interpreted by me (1pt min.). @ -Chest x-ray showed no acute abnormality CT interpreted by me (1pt min.). @ -None done U/S interpreted by me (1pt. min.). @ -None done What testing was considered but not performed or refused? (CT, X-rays, U/S, labs)? Why? @ -None What meds were considered but not given or refused? Why? @ -None Did you discuss the management of the patient with other professionals (professionals i.e. , SLIM, MAILING MACHINE OPERATOR, lab, RT, psych nurse, social media strategist, bus system operator, teacher, immigration services officer, telehealth case manager)? Give summary @ -No Was smoking cessation discussed for >3mins.? @ -No Was critical care preformed (if so, how long)? @ -No Were there social determinants of health that impacted care today? How? (Homelessness, low income, unemployed, alcoholism, drug addiction, transportation, low edu. Level, literacy, decrease access to med. care, custodial, rehab)? @ -No Was there de-escalation of care discussed even if they declined (Discuss DNR or withdrawal of care, Hospice)? DNR status @ -No What co-morbidities impacted this encounter? (DM, HTN, Smoking, COPD, CAD, Cancer, CVA, ARF, Chemo, Hep., AIDS, mental health diagnosis, sleep apnea, morbid obesity)? @ -None Was patient admitted / discharged? Hospital course, mention meds given and route, prescriptions, significant lab abnormalities, going to OR and other pertinent info. @ -I will back and room to reevaluate the patient and she did not want her hydralazine and she did not want any nitroglycerin. I will back in and told the patient was also told her liver enzymes were elevated she did not seem to decrease her she stated she drink today. I told the patient I wonder admit her because of her chest pain or effective treatment for her arms she decided not to stay I told her the risks could be possible heart attack or and she was not concerned his stated she would sign out AMA Undiagnosed new problem with uncertain prognosis? @ -No Drug Therapy requiring intensive monitoring for toxicity (Heparin, Nitro, Insulin, Cardizem)? @ -No Were any procedures done? @ -No Diagnosis/symptom? @ -Chest pain Acute, or Chronic, or Acute on Chronic? @ -Acute Uncomplicated (without systemic symptoms) or Complicated (systemic symptoms)? @ -Complicated Side effects of treatment? @ -No Exacerbation, Progression, or Severe Exacerbation? @ -No Poses a threat to life or bodily function? How? (Chest pain, USA, AR, pneumonia, PE, COPD, DKA, ARF, appy, cholecystitis, CVA, Diverticulitis, Homicidal, Suicidal, threat to staff... and all critical care pts) @ -Yes this completed an AR and end organ dysfunction Diagnosis/symptom? @ -Elevated liver enzymes Acute, or Chronic, or Acute on Chronic? @ -Acute Uncomplicated (without systemic symptoms) or Complicated (systemic symptoms)? @ -Complicated Side effects of treatment? @ -none Exacerbation, Progression, or Severe Exacerbation] @ -no Poses a threat to life or bodily function? @ -no - Lab Data Result diagrams: 10/02/23 13:26 10/02/23 13:26 Lab Results 01/08/24 01/08/24 01/08/24 Range/Units 13:26 13:26 13:26 WBC 6.5 (3.8-10.6) k/uL RBC 4.35 (3.80-5.40) m/uL Hgb 14.8 (11.4-16.0) gm/dL Hct 45.1 (34.0-46.0) % MCV 103.7 H (80.0-100.0) fL MCH 34.1 (25.0-35.0) pg MCHC 32.9 (31.0-37.0) g/dL RDW 13.8 (11.5-15.5) % Plt Count 269 (150-450) k/uL MPV 8.3 Neutrophils % 45 % Lymphocytes % 43 % Monocytes % 6 % Eosinophils % 2 % Basophils % 1 % Neutrophils # 2.9 (1.3-7.7) k/uL Lymphocytes # 2.8 (1.0-4.8) k/uL Monocytes # 0.4 (0-1.0) k/uL Eosinophils # 0.1 (0-0.7) k/uL Basophils # 0.1 (0-0.2) k/uL Macrocytosis Slight PT 10.0 (10.0-12.5) sec INR 0.9 (<1.2) APTT 21.5 L (22.0-30.0) sec Sodium 134 L (137-145) mmol/L Potassium 4.9 (3.5-5.1) mmol/L Chloride 102 (98-107) mmol/L Carbon Dioxide 20 L (22-30) mmol/L Anion Gap 12 mmol/L BUN 20 H (7-17) mg/dL Creatinine 0.77 (0.52-1.04) mg/dL Est GFR (CKD-EPI)AfAm >90 (>60 ml/min/1.73 sqM) Est GFR (CKD-EPI)NonAf 89 (>60 ml/min/1.73 sqM) Glucose 119 H (74-99) mg/dL Calcium 9.9 (8.4-10.2) mg/dL Magnesium 1.8 (1.6-2.3) mg/dL Total Bilirubin 0.7 (0.2-1.3) mg/dL AST 126 H (14-36) U/L ALT 184 H (4-34) U/L Alkaline Phosphatase 173 H (38-126) U/L Troponin I (0.000-0.034) ng/mL Total Protein 7.8 (6.3-8.2) g/dL Albumin 4.7 (3.5-5.0) g/dL 10/02/23 Range/Units 13:26 WBC (3.8-10.6) k/uL RBC (3.80-5.40) m/uL Hgb (11.4-16.0) gm/dL Hct (34.0-46.0) % MCV (80.0-100.0) fL MCH (25.0-35.0) pg MCHC (31.0-37.0) g/dL RDW (11.5-15.5) % Plt Count (150-450) k/uL MPV Neutrophils % % Lymphocytes % % Monocytes % % Eosinophils % % Basophils % % Neutrophils # (1.3-7.7) k/uL Lymphocytes # (1.0-4.8) k/uL Monocytes # (0-1.0) k/uL Eosinophils # (0-0.7) k/uL Basophils # (0-0.2) k/uL Macrocytosis PT (10.0-12.5) sec INR (<1.2) APTT (22.0-30.0) sec Sodium (137-145) mmol/L Potassium (3.5-5.1) mmol/L Chloride (98-107) mmol/L Carbon Dioxide (22-30) mmol/L Anion Gap mmol/L BUN (7-17) mg/dL Creatinine (0.52-1.04) mg/dL Est GFR (CKD-EPI)AfAm (>60 ml/min/1.73 sqM) Est GFR (CKD-EPI)NonAf (>60 ml/min/1.73 sqM) Glucose (74-99) mg/dL Calcium (8.4-10.2) mg/dL Magnesium (1.6-2.3) mg/dL Total Bilirubin (0.2-1.3) mg/dL AST (14-36) U/L ALT (4-34) U/L Alkaline Phosphatase (38-126) U/L Troponin I <0.012 (0.000-0.034) ng/mL Total Protein (6.3-8.2) g/dL Albumin (3.5-5.0) g/dL Disposition Clinical Impression: Chest pain, Elevated liver enzymes Disposition: LEFT AGAINST MEDICAL ADVICE Referrals: Albert Cerna MD [Primary Care Provider] - 1-2 days Time of Disposition: 14:53
[2023-10-02 13:08] VITALS: RESP 18; TEMP 97.8
[2023-10-02 13:43] LABS: Basophils # (A) 0.1 k/uL (0-0.2); Basophils % (A) 1 %; Eosinophils # (A) 0.1 k/uL (0-0.7); Eosinophils % (A) 2 %; HCT 45.1 % (34.0-46.0); HGB 14.8 gm/dL (11.4-16.0); Lymphocytes # (A) 2.8 k/uL (1.0-4.8); Lymphocytes % (A) 43 %; MCH 34.1 pg (25.0-35.0); MCHC 32.9 g/dL (31.0-37.0); MCV 103.7 fL (80.0-100.0); Macrocytosis Slight; Mean Platelet Volume 8.3; Monocytes # (A) 0.4 k/uL (0-1.0); Monocytes % (A) 6 %; Neutrophils # (A) 2.9 k/uL (1.3-7.7); Neutrophils % (A) 45 %; Platelet Count 269 k/uL (150-450); RBC 4.35 m/uL (3.80-5.40); RDW 13.8 % (11.5-15.5); WBC 6.5 k/uL (3.8-10.6)
[2023-10-02 13:56] LABS: ALT 184 U/L (4-34); AST 126 U/L (14-36); African American GFR (CKD) >90 (>60 ml/min/1.73 sqM); Albumin 4.7 g/dL (3.5-5.0); Alkaline Phosphatase 173 U/L (38-126); Anion Gap 12 mmol/L; Blood Urea Nitrogen 20 mg/dL (7-17); Calcium 9.9 mg/dL (8.4-10.2); Carbon Dioxide 20 mmol/L (22-30); Chloride 102 mmol/L (98-107); Glucose 119 mg/dL (74-99); Magnesium 1.8 mg/dL (1.6-2.3); Non-African American GFR(CKD) 89 (>60 ml/min/1.73 sqM); Potassium 4.9 mmol/L (3.5-5.1); Sodium 134 mmol/L (137-145); Total Bilirubin 0.7 mg/dL (0.2-1.3); Total Protein 7.8 g/dL (6.3-8.2)
[2023-10-02 14:02] LABS: INR 0.9 (<1.2)
[2023-10-02 14:05] LABS: Partial Thromboplastin Time 21.5 sec (22.0-30.0)
[2023-10-02 14:22] VITALS: BP 139/92; PULSE 94
--- NOTE | 2023-10-02 14:28 | XR ---
EXAMINATION TYPE: XR chest 2V DATE OF EXAM: 10/02/2023 COMPARISON: 06/16/2023 INDICATION: Chest pain TECHNIQUE: Frontal and lateral views of the chest are obtained. FINDINGS: The heart size is normal. The pulmonary vasculature is normal. The lungs are clear. IMPRESSION: 1. No acute pulmonary process.
== END 2023-10-02 15:16 | disposition left against medical advice (07) ==
LOC: EC 12:48
DX: R07.89 Other chest pain (principal); R74.8 Abnormal levels of other serum enzymes; I10 Essential (primary) hypertension; K21.9 Gastro-esophageal reflux disease without esophagitis; J44.9 Chronic obstructive pulmonary disease, unspecified; F17.200 Nicotine dependence, unspecified, uncomplicated; Z53.29 Procedure and treatment not carried out because of patient's decision for other reasons; Z79.899 Other long term (current) drug therapy; Z88.0 Allergy status to penicillin; Z91.012 Allergy to eggs; Z91.041 Radiographic dye allergy status; Z91.018 Allergy to other foods; Z88.2 Allergy status to sulfonamides; Z88.1 Allergy status to other antibiotic agents; Z90.49 Acquired absence of other specified parts of digestive tract
CPT/HCPCS: 36415; 71046; 80053; 83735; 84484; 85025; 85610; 85730; 93005; 96360; 96361; 99285

== ENCOUNTER 2023-10-03 11:57 | Emergency (ER) | payer MEDICARE, OTHER ==
[2023-10-03 12:15] VITALS: BP 167/97; PULSE 99; RESP 16; TEMP 99.1
--- NOTE | 2023-10-03 12:37 | ED ---
General Adult HPI - General Chief complaint: Abdominal Pain Stated complaint: Abn labs Time Seen by Provider: 10/03/23 12:20 Source: patient, RN notes reviewed, old records reviewed Mode of arrival: ambulatory Limitations: no limitations - History of Present Illness Initial comments: This is a 53-year-old female presents emergency Department because of elevated liver enzymes. Patient was seen in the emergency department yesterday for chest pain she was told that she should stay because of the chest pain she signed out AMA. Patient was informed of her high liver enzymes but she states she's a very heavy drinker and she just assumed that was the reason. Patient called the primary medical care doctor in the center up here to get a repeat lab draw for her liver enzymes. Patient denies any chest pain or shortness of breath. Patient denies any abdominal pain. Patient states she can change to be a heavy drinker. Patient denies any fever or chills. Patient denies nausea vomiting diarrhea. - Related Data Home Medications Medication Instructions Recorded Confirmed oxyCODONE-APAP 10-325MG [Percocet 1 tab PO TID PRN 07/21/20 10/03/23 10-325 mg] diphenhydrAMINE HCL [Benadryl 25 mg PO TID 09/05/23 10/03/23 Allergy] Melatonin 5 mg PO HS 10/02/23 10/03/23 Naloxegol Oxalate [Movantik] 25 mg PO DAILY PRN 10/02/23 10/03/23 Nitrofurantoin Monohyd/M-Cryst 100 mg PO BID 10/02/23 10/03/23 [Macrobid] Omeprazole [PriLOSEC] 40 mg PO DAILY 10/02/23 10/03/23 Pantoprazole Sodium [Protonix] 40 mg PO DAILY 10/02/23 10/03/23 lisinopriL [Zestril] 5 mg PO BID 10/02/23 10/03/23 Previous Rx's Medication Instructions Recorded Cyclobenzaprine [Flexeril] 10 mg PO TID PRN #15 tab 07/23/22 Allergies Allergy/AdvReac Type Severity Reaction Status Date / Time Penicillins Allergy Severe Anaphylaxis Verified 10/03/23 14:27 Iodinated Contrast Media Allergy Unknown Rash/Hives Verified 10/03/23 14:27 [Iodinated Contrast Media - IV Dye] egg yolk Allergy Nausea Verified 10/03/23 14:27 mustard Allergy Nausea Verified 10/03/23 14:27 Sulfa (Sulfonamide Allergy Rash/Hives Verified 10/03/23 14:27 Antibiotics) sulfamethoxazole Allergy Rash/Hives Verified 10/03/23 14:27 [From Bactrim] trimethoprim [From Bactrim] Allergy Rash/Hives Verified 10/03/23 14:27 Review of Systems ROS Statement: Those systems with pertinent positive or pertinent negative responses have been documented in the HPI. ROS Other: All systems not noted in ROS Statement are negative. Past Medical History Past Medical History: Cancer, COPD, Fibromyalgia, GERD/Reflux, Hyperlipidemia, Hypertension, Osteoarthritis (OA), Pneumonia, Seizure Disorder, Thyroid Disorder Additional Past Medical History / Comment(s): LAST SEIZURE about 1 yr ago. needs to get back on tegretol .H-pylori, arthritis in multiple joints, compression fracture L1 with chronic pain, , hypothyroid, , past elevated liver function tests, L breast "lump" being monitored, she has had blurry vision tri focals./bed wetting. weak bladder Cervical CA with hysterectomy. Adrenal insufficency. heartburn worse, ? reoccurance of hiatal hernia. seasonal allergies. History of Any Multi-Drug Resistant Organisms: MRSA Date of last positivie culture/infection: 05/17/23 MDRO Source:: Right Foot Past Surgical History: Adenoidectomy, Breast Surgery, Cholecystectomy, Hysterectomy, Orthopedic Surgery, Tonsillectomy, Tubal Ligation Additional Past Surgical History / Comment(s): Bilateral breast implants, bilateral oophorectomy d/t cysts, EGDs, EGD with dilation, susu fundoplication with revision, R elbow surgery for MRSA infection, R rotator cuff repair, low back surgery (cemented), bilateral hip surgery for tendon/muscle repairs/screws in place. Cervical fusion C4,5,6,7 Past Anesthesia/Blood Transfusion Reactions: Family History of Problems w/ Anesthesia Additional Past Anesthesia/Blood Transfusion Reaction / Comment(s): MOTHER= A- FIB WITH ANESTHESIA. Past Psychological History: Anxiety, Bipolar, Depression Smoking Status: Current every day smoker - Past Family History Father Family Medical History: Eye Disorder, Hypertension Additional Family Medical History / Comment(s): Father committed suicide at the age of 58yrs. He had glaucoma Brother(s) Family Medical History: No Reported History Additional Family Medical History / Comment(s): She has one brother that is a recovered alcoholic with no other major medical problems. Sister(s) Additional Family Medical History / Comment(s): Patient has one sister that s uffers from depression and anxiety Mother Family Medical History: Cancer, Dementia, Diabetes Mellitus, Deep Vein Thrombosis (DVT), Eye Disorder, Hypertension Additional Family Medical History / Comment(s): Corneal transplant, breast cancer General Exam - General Exam Comments Initial Comments: GENERAL: Patient is well-developed and well-nourished. Patient is nontoxic and well- hydrated and is no acute distress. ENT: Neck is soft and supple. No significant lymphadenopathy is noted. Oropharynx is clear. Moist mucous membranes. Neck has full range of motion without el iciting any pain. EYES: The sclera were anicteric and conjunctiva were pink and moist. Extraocular movements were intact and pupils were equal round and reactive to light. Eyelids were unremarkable. PULMONARY: Unlabored respirations. Good breath sounds bilaterally. No audible rales rhonchi or wheezing was noted. CARDIOVASCULAR: There is a regular rate and rhythm without any murmurs gallops or rubs. ABDOMEN: Soft and nontender with normal bowel sounds. SKIN: Skin is clear with no lesions or rashes and otherwise unremarkable. NEUROLOGIC: Patient is alert and oriented x3. Cranial nerves II through XII are grossly intact. Motor and sensory are also intact. Normal speech, volume and content. Symmetrical smile. MUSCULOSKELETAL: Normal extremities with adequate strength and full range of motion. LYMPHATICS: No significant lymphadenopathy is noted PSYCHIATRIC: Normal psychiatric evaluation. Limitations: no limitations Course Vital Signs 10/03/23 11:58 Temperature 99.1 F Pulse Rate 99 Respiratory 16 Rate Blood Pressure 167/97 O2 Sat by Pulse 100 Oximetry Medical Decision Making - Medical Decision Making Was pt. sent in by a medical professional or institution (, PA, [employer], urgent care, hospital, or retirement...) When possible be specific @ -Nurse practitioner sent to the emergency department Did you speak to anyone other than the patient for history (EMS, parent, family, police, friend...)? What history was obtained from this source @ -No Did you review nursing and triage notes (agree or disagree)? Why? @ -I reviewed and agree with nursing and triage notes Were old charts reviewed (outside hosp., previous admission, EMS record, old EKG, old radiological studies, urgent care reports/EKG's, retirement records)? Report findings @ -I reviewed prior charts apart lab work on this patient Differential Diagnosis (chest pain, altered mental status, abdominal pain women, abdominal pain men, vaginal bleeding, weakness, fever, dyspnea, syncope, headache, dizziness, GI bleed, back pain, seizure, CVA, palpatations, mental health, musculoskeletal)? @ -not applicable EKG interpreted by me (3pts min.). @ -As above X-rays interpreted by me (1pt min.). @ -None done CT interpreted by me (1pt min.). @ -None done U/S interpreted by me (1pt. min.). @ -None done What testing was considered but not performed or refused? (CT, X-rays, U/S, labs)? Why? @ -None What meds were considered but not given or refused? Why? @ -None Did you discuss the management of the patient with other professionals (professionals i.e. , PA, [employer], lab, RT, psych nurse, rn social work, sorority supervisor, teacher, flight communications officer, assistant case manager)? Give summary @ -I spoke with Dr. Cerna he agreed the patient could follow-up as an outpatient Was smoking cessation discussed for >3mins.? @ -No Was critical care preformed (if so, how long)? @ -No Were there social determinants of health that impacted care today? How? (Homelessness, low income, unemployed, alcoholism, drug addiction, transportat ion, low edu. Level, literacy, decrease access to med. care, intermediate, rehab)? @ -No Was there de-escalation of care discussed even if they declined (Discuss DNR or withdrawal of care, Hospice)? DNR status @ -No What co-morbidities impacted this encounter? (DM, HTN, Smoking, COPD, CAD, Cancer, CVA, ARF, Chemo, Hep., AIDS, mental health diagnosis, sleep apnea, morbid obesity)? @ -None Was patient admitted / discharged? Hospital course, mention meds given and route, prescriptions, significant lab abnormalities, going to OR and other pertinent info. @ -Work came back liver enzymes are still elevated but they were improved since yesterday. Patient was asymptomatic I spoke with Dr. Cerna she will follow-up with Dr. Cerna as an outpatient Undiagnosed new problem with uncertain prognosis? @ -No Drug Therapy requiring intensive monitoring for toxicity (Heparin, Nitro, Insulin, Cardizem)? @ -No Were any procedures done? @ -No Diagnosis/symptom? @ -Elevated liver enzymes Acute, or Chronic, or Acute on Chronic? @ -Acute Uncomplicated (without systemic symptoms) or Complicated (systemic symptoms)? @ -Uncomplicated Side effects of treatment? @ -No Exacerbation, Progression, or Severe Exacerbation? @ -No Poses a threat to life or bodily function? How? (Chest pain, [place], [place], pneumonia, PE, COPD, DKA, ARF, appy, cholecystitis, CVA, Diverticulitis, Homicidal, Suicidal, threat to staff... and all critical care pts) @ -No - Lab Data Result diagrams: 10/03/23 12:55 10/03/23 12:55 Lab Results 10/03/23 10/03/23 10/03/23 Range/Units 12:55 12:55 12:55 WBC 6.2 (3.8-10.6) k/uL RBC 4.47 (3.80-5.40) m/uL Hgb 15.0 (11.4-16.0) gm/dL Hct 46.6 H (34.0-46.0) % MCV 104.3 H (80.0-100.0) fL MCH 33.6 (25.0-35.0) pg MCHC 32.3 (31.0-37.0) g/dL RDW 13.7 (11.5-15.5) % Plt Count 260 (150-450) k/uL MPV 7.6 Neutrophils % 58 % Lymphocytes % 34 % Monocytes % 4 % Eosinophils % 2 % Basophils % 0 % Neutrophils # 3.6 (1.3-7.7) k/uL Lymphocytes # 2.1 (1.0-4.8) k/uL Monocytes # 0.2 (0-1.0) k/uL Eosinophils # 0.1 (0-0.7) k/uL Basophils # 0.0 (0-0.2) k/uL Macrocytosis Slight PT 9.6 L (10.0-12.5) sec INR 0.8 (<1.2) APTT 22.8 (22.0-30.0) sec Sodium 138 (137-145) mmol/L Potassium 4.9 (3.5-5.1) mmol/L Chloride 103 (98-107) mmol/L Carbon Dioxide 22 (22-30) mmol/L Anion Gap 13 mmol/L BUN 21 H (7-17) mg/dL Creatinine 0.76 (0.52-1.04) mg/dL Est GFR (CKD-EPI)AfAm >90 (>60 ml/min/1.73 sqM) Est GFR (CKD-EPI)NonAf >90 (>60 ml/min/1.73 sqM) Glucose 104 H (74-99) mg/dL Calcium 10.1 (8.4-10.2) mg/dL Total Bilirubin 0.8 (0.2-1.3) mg/dL Conjugated Bilirubin 0.0 (0.0-0.3) mg/dL Unconjugated Bilirubin 0.2 (0.0-1.1) mg/dL Delta Bilirubin 0.6 H (0.0-0.2) mg/dL AST 73 H (14-36) U/L ALT 135 H (4-34) U/L Alkaline Phosphatase 142 H (38-126) U/L Troponin I (0.000-0.034) ng/mL Total Protein 8.4 H (6.3-8.2) g/dL Albumin 4.9 (3.5-5.0) g/dL Amylase 101 (30-110) U/L Lipase 167 (23-300) U/L 10/03/23 Range/Units 12:55 WBC (3.8-10.6) k/uL RBC (3.80-5.40) m/uL Hgb (11.4-16.0) gm/dL Hct (34.0-46.0) % MCV (80.0-100.0) fL MCH (25.0-35.0) pg MCHC (31.0-37.0) g/dL RDW (11.5-15.5) % Plt Count (150-450) k/uL MPV Neutrophils % % Lymphocytes % % Monocytes % % Eosinophils % % Basophils % % Neutrophils # (1.3-7.7) k/uL Lymphocytes # (1.0-4.8) k/uL Monocytes # (0-1.0) k/uL Eosinophils # (0-0.7) k/uL Basophils # (0-0.2) k/uL Macrocytosis PT (10.0-12.5) sec INR (<1.2) APTT (22.0-30.0) sec Sodium (137-145) mmol/L Potassium (3.5-5.1) mmol/L Chloride (98-107) mmol/L Carbon Dioxide (22-30) mmol/L Anion Gap mmol/L BUN (7-17) mg/dL Creatinine (0.52-1.04) mg/dL Est GFR (CKD-EPI)AfAm (>60 ml/min/1.73 sqM) Est GFR (CKD-EPI)NonAf (>60 ml/min/1.73 sqM) Glucose (74-99) mg/dL Calcium (8.4-10.2) mg/dL Total Bilirubin (0.2-1.3) mg/dL Conjugated Bilirubin (0.0-0.3) mg/dL Unconjugated Bilirubin (0.0-1.1) mg/dL Delta Bilirubin (0.0-0.2) mg/dL AST (14-36) U/L ALT (4-34) U/L Alkaline Phosphatase (38-126) U/L Troponin I <0.012 (0.000-0.034) ng/mL Total Protein (6.3-8.2) g/dL Albumin (3.5-5.0) g/dL Amylase (30-110) U/L Lipase (23-300) U/L Disposition Clinical Impression: Elevated liver enzymes Disposition: HOME SELF-CARE Condition: Good Is patient prescribed a controlled substance at d/c from ED?: No Referrals: Albert Cerna MD [Primary Care Provider] - 1-2 days Time of Disposition: 14:42
[2023-10-03 13:11] LABS: Basophils % (A) 0 %; Eosinophils # (A) 0.1 k/uL (0-0.7); Eosinophils % (A) 2 %; HCT 46.6 % (34.0-46.0); Lymphocytes # (A) 2.1 k/uL (1.0-4.8); Lymphocytes % (A) 34 %; MCH 33.6 pg (25.0-35.0); MCHC 32.3 g/dL (31.0-37.0); MCV 104.3 fL (80.0-100.0); Macrocytosis Slight; Mean Platelet Volume 7.6; Monocytes # (A) 0.2 k/uL (0-1.0); Monocytes % (A) 4 %; Neutrophils # (A) 3.6 k/uL (1.3-7.7); Neutrophils % (A) 58 %; Platelet Count 260 k/uL (150-450); RBC 4.47 m/uL (3.80-5.40); RDW 13.7 % (11.5-15.5); WBC 6.2 k/uL (3.8-10.6)
[2023-10-03 13:20] LABS: INR 0.8 (<1.2); Partial Thromboplastin Time 22.8 sec (22.0-30.0); Prothrombin Time 9.6 sec (10.0-12.5)
[2023-10-03 14:29] LABS: ALT 135 U/L (4-34); AST 73 U/L (14-36); African American GFR (CKD) >90 (>60 ml/min/1.73 sqM); Albumin 4.9 g/dL (3.5-5.0); Alkaline Phosphatase 142 U/L (38-126); Amylase 101 U/L (30-110); Anion Gap 13 mmol/L; Bilirubin, Delta 0.6 mg/dL (0.0-0.2); Bilirubin,Unconjugated 0.2 mg/dL (0.0-1.1); Blood Urea Nitrogen 21 mg/dL (7-17); Calcium 10.1 mg/dL (8.4-10.2); Carbon Dioxide 22 mmol/L (22-30); Chloride 103 mmol/L (98-107); Glucose 104 mg/dL (74-99); Lipase 167 U/L (23-300); Non-African American GFR(CKD) >90 (>60 ml/min/1.73 sqM); Sodium 138 mmol/L (137-145); Total Bilirubin 0.8 mg/dL (0.2-1.3); Total Protein 8.4 g/dL (6.3-8.2)
[2023-10-03 14:34] LABS: Potassium 4.9 mmol/L (3.5-5.1)
[2023-10-03 19:46] LABS: Hepatitis A Antibody IgM Nonreactive; Hepatitis B Core IgM Nonreactive; Hepatitis B Surface Antigen Nonreactive; Hepatitis C IgG Antibody Nonreactive
== END 2023-10-03 15:37 | disposition home or self-care (01) ==
LOC: EC 11:57
DX: R74.8 Abnormal levels of other serum enzymes (principal); I10 Essential (primary) hypertension; J44.9 Chronic obstructive pulmonary disease, unspecified; K21.9 Gastro-esophageal reflux disease without esophagitis; E78.5 Hyperlipidemia, unspecified; F17.200 Nicotine dependence, unspecified, uncomplicated; Z79.899 Other long term (current) drug therapy; Z88.0 Allergy status to penicillin; Z88.1 Allergy status to other antibiotic agents; Z88.2 Allergy status to sulfonamides; Z91.012 Allergy to eggs; Z91.041 Radiographic dye allergy status; Z91.018 Allergy to other foods; Z90.49 Acquired absence of other specified parts of digestive tract
CPT/HCPCS: 36415; 80053; 80074; 82150; 82248; 83690; 84484; 85025; 85610; 85730; 99284

== ENCOUNTER 2023-10-06 09:32 | Inpatient (IN) | payer MEDICARE, OTHER ==
[~2023-10-06 09:32] MED LIST changes: +ETOMIDATE 2 MG/ML 10 ML VIAL IVP STA; +HEPARIN SODIUM,PORCINE (1 ML) 2,500 UNIT in SODIUM CHLORIDE 0.9% 250 ML IRRIGATION PRN; +HEPARIN SODIUM,PORCINE 10,000 UNIT in SODIUM CHLORIDE 0.9% 1,000 ML IRRIGATION PRN; -HYDROmorphone 0.5 MG/0.5 ML SYRINGE IVP PRN; -LACTATED RINGERS 1,000 ML IV SCH; -LIDOCAINE 1% (10MG/ML) FOR IV START INTRADERMA PRN
[2023-10-06] MEDS ORDERED: SUCCINYLCHOLINE CHLORIDE 200 MG/10 ML VIAL IV STA (09:39)
[2023-10-06] MEDS ORDERED: SODIUM CHLORIDE 0.9% 1,000 ML IV ONE ×3 (09:41→09:43)
[2023-10-06 09:52] LABS: Glucose,Whole Blood 214 mg/dL (70-110)
[2023-10-06] MEDS ORDERED: MIDAZOLAM 1 MG/ML 5 ML VIAL IV STA ×4 (10:03→11:50)
[2023-10-06 10:12] LABS: ABG Base Excess -12.5 mmol/L; ABG HCO3 16 mmol/L (21-25); ABG Oxygen Saturation 99.5 % (94-97); ABG PCO2 42 mmHg (35-45); ABG PO2 363 mmHg (83-108); ABG TCO2 17 mmol/L (19-24); Allen Test Performed? Yes
[2023-10-06 10:13] LABS: ALT 90 U/L (4-34); AST 121 U/L (14-36); Acetaminophen <10.0 ug/mL; African American GFR (CKD) 65 (>60 ml/min/1.73 sqM); Albumin 4.3 g/dL (3.5-5.0); Alcohol <10 mg/dL; Alkaline Phosphatase 109 U/L (38-126); Anion Gap 25 mmol/L; Blood Urea Nitrogen 20 mg/dL (7-17); Calcium 9.1 mg/dL (8.4-10.2); Carbon Dioxide 10 mmol/L (22-30); Chloride 104 mmol/L (98-107); Glucose 218 mg/dL (74-99); HCT 44.6 % (34.0-46.0); HGB 14.4 gm/dL (11.4-16.0); Hypochromasia Slight; MCH 34.9 pg (25.0-35.0); MCHC 32.4 g/dL (31.0-37.0); MCV 107.8 fL (80.0-100.0); Macrocytosis Moderate; Mean Platelet Volume 8.9; Non-African American GFR(CKD) 57 (>60 ml/min/1.73 sqM); Platelet Count 279 k/uL (150-450); Potassium 4.6 mmol/L (3.5-5.1); RBC 4.14 m/uL (3.80-5.40); RDW 13.6 % (11.5-15.5); Sodium 139 mmol/L (137-145); Total Bilirubin 0.6 mg/dL (0.2-1.3); Total Protein 7.1 g/dL (6.3-8.2); WBC 19.1 k/uL (3.8-10.6)
[2023-10-06 10:16] LABS: ABG PH 7.18 (7.35-7.45)
[2023-10-06 10:17] LABS: Partial Thromboplastin Time 20.2 sec (22.0-30.0)
[2023-10-06] MEDS ORDERED: NOREPINEPHRINE 32 MG in SODIUM CHLORIDE 0.9% 218 ML IV ONE (10:19)
[2023-10-06 10:20] LABS: Amphetamine Screen,Urine Not Detected (NotDetected); Barbiturate Screen,Urine Not Detected (NotDetected); Benzodiazepines Screen,Urine Not Detected (NotDetected); Cocaine Screen,Urine Not Detected (NotDetected); Methadone Screen, Urine Not Detected (NotDetected); Opiate Screen,Urine Not Detected (NotDetected); Oxycodone Screen, Urine Detected (NotDetected); Phencyclidine Screen,Urine Not Detected (NotDetected); Tricyclic Antidepressant,Urine Detected (NotDetected); Urn Cannabinoid Scrn Not Detected (NotDetected)
--- NOTE | 2023-10-06 10:21 | XR ---
EXAMINATION TYPE: XR chest 1V confirm line [facility] DATE OF EXAM: 10/06/2023 10:07 AM CLINICAL INDICATION:Female, 53 years old with history of Intubation placement; [facility] COMPARISON: 10/02/2023 TECHNIQUE: XR chest 1V confirm line [facility] Portable AP radiograph of the chest.. FINDINGS: Lines/Tubes/Devices: ET tube 5.9 cm above the coty, just above the clavicular heads. NG/OG tube traverses below the symone phragm, extending into the left abdomen with the tip beyond the field of view. EKG leads over the [address]. Heart/mediastinum: Heart size is normal. Mildly tortuous aorta. Pulmonary vascularity: Not increased, Lungs/Pleura: There is no evidence of pleural effusion, focal consolidation, or pneumothorax. Musculoskeletal: No acute osseous abnormality demonstrated in the limits of the exam. There is fixat ion hardware in the lower cervical spine. Similar mild asymmetric elevation right hemidiaphragm. Other findings: None. IMPRESSION: 1. Lines and tubes in place, as above. Recommend further advancement of the ET tube 1 or 2 cm for mo re optimal positioning. 2. No acute cardiopulmonary process.
[2023-10-06] MEDS ORDERED: HYDROCORTISONE SUCCINATE 100 MG/2 ML VIAL IV STA (10:37)
--- NOTE | 2023-10-06 10:43 | ED ---
CPR HPI - General Chief Complaint: Cardiac Arrest/CPR Stated Complaint: CHEST PAINS Time Seen by Provider: 10/06/23 09:35 Source: EMS Mode of arrival: EMS Limitations: no limitations - History of Present Illness Initial Comments: 53-year-old female presents to the emergency department as a cardiac arrest. Fianc helps supplement the history as well as EMS. Fianc states that the patient has complained of chest pain over the past couple of days. She was seen in the emergency department for chest pain and was to be admitted however patient wanted to leave AGAINST MEDICAL ADVICE. This morning the patient was complaining of intense chest pain when she collapsed in front of her fianc. Fire arrived on scene as well as EMS and found that the patient was in cardiac arrest. She had a total of 15 minutes down time. Rhythm was V. fib according to EMS. She received 3 defibrillation's, 3 epinephrines, 300 mg bolus of amiodarone and 150 mg bolus of amiodarone. Patient arrives with a jarret tube in place. She has no previous cardiac history. HPI is limited because of patient's current status - Related Data Home Medications Medication Instructions Recorded Confirmed oxyCODONE-APAP 10-325MG [Percocet 1 tab PO TID PRN 07/21/20 10/10/23 10-325 mg] diphenhydrAMINE HCL [Benadryl] 25 mg PO TID 09/05/23 10/10/23 Melatonin 5 mg PO HS 10/02/23 10/10/23 Naloxegol Oxalate [Movantik] 25 mg PO DAILY PRN 10/02/23 10/10/23 Omeprazole [PriLOSEC] 40 mg PO DAILY 10/02/23 10/10/23 Pantoprazole Sodium [Protonix] 40 mg PO DAILY 10/02/23 10/10/23 Aspirin EC [Ecotrin Low Dose] 81 mg PO DAILY 10/10/23 10/10/23 Atorvastatin [Lipitor] 80 mg PO HS 10/10/23 10/10/23 Clopidogrel [Plavix] 75 mg PO DAILY 10/10/23 10/10/23 Metoprolol Tartrate [Lopressor] 25 mg PO BID 10/10/23 10/10/23 Previous Rx's Medication Instructions Recorded Cyclobenzaprine [Flexeril] 10 mg PO TID PRN #15 tab 07/23/22 Sacubitril/Valsartan [Entresto 24 1 each PO BID #60 tab 10/12/23 mg-26 mg Tablet] busPIRone HCl [Buspar] 10 mg PO BID #60 tab 10/12/23 Allergies Allergy/AdvReac Type Severity Reaction Status Date / Time Penicillins Allergy Severe Anaphylaxis Verified 10/10/23 14:21 Iodinated Contrast Media Allergy Unknown Rash/Hives Verified 10/10/23 14:21 [Iodinated Contrast Media - IV Dye] egg yolk Allergy Nausea Verified 10/10/23 14:21 mustard Allergy Nausea Verified 10/10/23 14:21 Sulfa (Sulfonamide Allergy Rash/Hives Verified 10/10/23 14:21 Antibiotics) sulfamethoxazole Allergy Rash/Hives Verified 10/10/23 14:21 [From Bactrim] trimethoprim [From Bactrim] Allergy Rash/Hives Verified 10/10/23 14:21 Review of Systems ROS Statement: Those systems with pertinent positive or pertinent negative responses have been documented in the HPI. ROS Other: All systems not noted in ROS Statement are negative. Past Medical History Past Medical History: Cancer, COPD, Fibromyalgia, GERD/Reflux, Hyperlipidemia, Hypertension, Osteoarthritis (OA), Pneumonia, Seizure Disorder, Thyroid Disorder Additional Past Medical History / Comment(s): LAST SEIZURE about 1 yr ago. needs to get back on tegretol .H-pylori, arthritis in multiple joints, compression fracture L1 with chronic pain, , hypothyroid, , past elevated liver function tests, L breast "lump" being monitored, she has had blurry vision tri focals./bed wetting. weak bladder Cervical CA with hysterectomy. Adrenal in sufficency. heartburn worse, ? reoccurance of hiatal hernia. seasonal allergies. History of Any Multi-Drug Resistant Organisms: MRSA Date of last positivie culture/infection: 05/17/23 MDRO Source:: Right Foot Past Surgical History: Adenoidectomy, Breast Surgery, Cholecystectomy, Hysterectomy, Orthopedic Surgery, Tonsillectomy, Tubal Ligation Additional Past Surgical History / Comment(s): Bilateral breast implants, bilateral oophorectomy d/t cysts, EGDs, EGD with dilation, susu fundoplication with revision, R elbow surgery for MRSA infection, R rotator cuff repair, low back surgery (cemented), bilateral hip surgery for tendon/muscle repairs/screws in place. Cervical fusion C4,5,6,7 Past Anesthesia/Blood Transfusion Reactions: Family History of Problems w/ Anesthesia Additional Past Anesthesia/Blood Transfusion Reaction / Comment(s): MOTHER= A- FIB WITH ANESTHESIA. Past Psychological History: Anxiety, Bipolar, Depression Smoking Status: Current every day smoker - Past Family History Father Family Medical History: Eye Disorder, Hypertension Additional Family Medical History / Comment(s): Father committed suicide at the age of 58yrs. He had glaucoma Brother(s) Family Medical History: No Reported History Additional Family Medical History / Comment(s): She has one brother that is a recovered alcoholic with no other major medical problems. Sister(s) Additional Family Medical History / Comment(s): Patient has one sister that suffers from depression and anxiety Mother Family Medical History: Cancer, Dementia, Diabetes Mellitus, Deep Vein Thrombosis (DVT), Eye Disorder, Hypertension Additional Family Medical History / Comment(s): Corneal transplant, breast cancer General Exam General appearance: obtunded Head exam: Present: atraumatic, normocephalic, normal inspection Eye exam: Present: other (pupils 4 to 3 reactive bilaterally) ENT exam: Present: other (jarret tube in place) Neck exam: Present: normal inspection. Absent: tenderness, meningismus, lymphadenopathy Respiratory exam: Present: other (patient being bagged by ems) Cardiovascular Exam: Present: normal rhythm, tachycardia GI/Abdominal exam: Present: soft, normal bowel sounds. Absent: distended, tenderness, guarding, rebound, rigid Extremities exam: Absent: pedal edema, joint swelling Back exam: Present: normal inspection Neurological exam: Present: altered, other (pupils reactive. patient does withdraw to pain) Skin exam: Present: dry, intact, pallor Course Vital Signs 10/06/23 10/06/23 10/06/23 09:34 09:45 09:58 Temperature Pulse Rate 113 H 102 H Respiratory 20 16 Rate Blood Pressure 97/68 90/60 O2 Sat by Pulse 100 100 Oximetry Fraction of 100 Inspired Oxygen (FIO2) 10/06/23 10/06/23 10/06/23 10:05 10:12 10:15 Temperature Pulse Rate 106 H 103 H 100 Respiratory 16 11 L 16 Rate Blood Pressure 90/56 76/47 79/46 O2 Sat by Pulse 100 100 100 Oximetry Fraction of Inspired Oxygen (FIO2) 10/06/23 10/06/23 10/06/23 10:19 10:20 10:25 Temperature Pulse Rate 98 97 Respiratory 16 16 Rate Blood Pressure 77/47 79/48 O2 Sat by Pulse 100 100 Oximetry Fraction of 50 Inspired Oxygen (FIO2) 10/06/23 10/06/23 10/06/23 10:33 10:40 10:45 Temperature Pulse Rate 96 92 93 Respiratory 16 16 16 Rate Blood Pressure 87/57 78/52 84/57 O2 Sat by Pulse 100 100 100 Oximetry Fraction of Inspired Oxygen (FIO2) 10/06/23 10/06/23 10/06/23 10:50 10:55 11:35 Temperature Pulse Rate 91 87 86 Respiratory 16 16 16 Rate Blood Pressure 76/46 77/47 93/61 O2 Sat by Pulse 100 100 100 Oximetry Fraction of Inspired Oxygen (FIO2) 10/06/23 10/06/23 10/06/23 12:00 12:30 12:44 Temperature Pulse Rate 82 80 Respiratory 16 18 Rate Blood Pressure 103/67 113/50 O2 Sat by Pulse 100 100 Oximetry Fraction of 50 Inspired Oxygen (FIO2) 10/06/23 10/06/23 10/06/23 12:45 13:00 13:13 Temperature 97.5 F L Pulse Rate 96 90 97 Respiratory 16 18 16 Rate Blood Pressure 103/79 104/78 116/89 O2 Sat by Pulse 100 100 100 Oximetry Fraction of Inspired Oxygen (FIO2) - Reevaluation(s) Reevaluation #1: spoke with Dr. Hickey. We'll heparinize patient after computed tomography scan 10/06/23 11:31 Procedures - Central Line Placement Right IJ Consent Obtained: emergent situation Patient Placed on Monitor/Pulse Ox: Yes MD Prep: mask, gown, gloves Central Line Prep: Chlorhexidine scrub Local Anesthesia Used: Lidocaine 1% Amount of Anesthesia Used (mls): 5 Ultrasound Used for Placement: Yes Central Line Lumen Inserted: triple Bloods Obtained for Lab: No Central Line Position: good blood return, all ports aspirated, flushed, capped Dressing Applied: Tegaderm Post Procedure X-Ray: tip of catheter in good position Patient Tolerated Procedure: well, no complications Complications: none - Intubation Sedative: Etomidate Mg Given: 20 Paralytic: Succinylcholine Mg Given: 100 Laryngoscope: Gurmeet Size: 3 ET Tube Size: 7.5 ET Tube Uncuffed: No Tube Secured Depth (cm): 25 Tube Secured Location: lips Tube Placement Confirmation: visualized tube passing through cords, equal breath sounds bilaterally, no breath sounds over epigastrium, confirmation by capnometry Patient Tolerated Procedure: well, no complications Medical Decision Making - Medical Decision Making Was pt. sent in by a medical professional or institution (, PA, EXPERIENCED TRUCK DRIVER, urgent care, hospital, or usp...) When possible be specific @ -No Did you speak to anyone other than the patient for history (EMS, parent, family, police, friend...)? What history was obtained from this source @ -EMS, fiance Did you review nursing and triage notes (agree or disagree)? Why? @ -I reviewed and agree with nursing and triage notes Were old charts reviewed (outside hosp., previous admission, EMS record, old EKG, old radiological studies, urgent care reports/EKG's, usp records)? Report findings @ - old charts were reviewed - patient seen in ED on 8th and left AMA Differential Diagnosis (chest pain, altered mental status, abdominal pain women, abdominal pain men, vaginal bleeding, weakness, fever, dyspnea, syncope, headache, dizziness, GI bleed, back pain, seizure, CVA, palpatations, mental health, musculoskeletal)? @ -pe, vfib arrest, stemi, pneumothorax, aneurysm rupture EKG interpreted by me (3pts min.). @ -Yes and demonstrates sinus tachycardia with a rate of 111. UT interval 150. QRS 129. QTC of 432. No acute ST segment elevation. Right bundle branch block X-rays interpreted by me (1pt min.). @ -yes, et tube at coty CT interpreted by me (1pt min.). @ -No acute intracranial process U/S interpreted by me (1pt. min.). @ -None done What testing was considered but not performed or refused? (CT, X-rays, U/S, labs)? Why? @ -None What meds were considered but not given or refused? Why? @ -None Did you discuss the management of the patient with other professionals (professionals i.e. , PA, EXPERIENCED TRUCK DRIVER, lab, RT, psych nurse, director social welfare, non licensed nuclear plant operator, teacher, grant officer, manager rn case)? Give summary @ -Dr. hickey who takes patient for cath. Dr adorno who will admit patient. Dr. Solitario who is the rug dyer helper Was smoking cessation discussed for >3mins.? @ -No Was critical care preformed (if so, how long)? @ -yes, 50 minutes Were there social determinants of health that impacted care today? How? (Homelessness, low income, unemployed, alcoholism, drug addiction, transportation, low edu. Level, literacy, decrease access to med. care, alf, rehab)? @ -No Was there de-escalation of care discussed even if they declined (Discuss DNR or withdrawal of care, Hospice)? DNR status @ -No What co-morbidities impacted this encounter? (DM, HTN, Smoking, COPD, CAD, Cancer, CVA, ARF, Chemo, Hep., AIDS, mental health diagnosis, sleep apnea, morbid obesity)? @ -htn, adrenal insufficiency Was patient admitted / discharged? Hospital course, mention meds given and route, prescriptions, significant lab abnormalities, going to OR and other pertinent info. @ -Upon arrival patient was placed in a trauma bay 1. Patient does have a Jarret tube in place and therefore this was switched over to a 7-1/2 ET tube, 25 cm at the lip. She was given 20 mg of etomidate and 100 mg of succinylcholine as she did have spontaneous respirations with gag. Pupils were 6-4, reactive ledy aterally before she was paralyzed. Portable chest x-ray was performed. Laboratory studies are conducted. Patient does remain hypotensive. Does have a history of adrenal insufficiency and therefore she is given 100 mg of hydrocortisone. Patient additionally given 3 L of fluid and started on levophed after she remains hypotensive. Central line was placed in the right IJ. A CT of the brain was performed which demonstrates no acute intracranial abnormality. Patient is heparinized after this and given 300 mg of rectal aspirin. I did discuss this information with the patient's fianc. As the patient is not , I did inform him that the patient's children must be notified as they have decision making capabilities. I did call and speak with Dr. Hickey as the patient is a V. fib arrest. He will take the patient for catheterization at this time. I also spoke with Dr. Solitario who will admit the patient to the ICU. Admitting physician is Dr. Adorno who does present to the emergency department to evaluate the patient Undiagnosed new problem with uncertain prognosis? @ -yes Drug Therapy requiring intensive monitoring for toxicity (Heparin, Nitro, Insulin, Cardizem)? @ -yes, heparin, leveophed, propofol Were any procedures done? @ -yes, intubation and central line Diagnosis/symptom? @ -acute vfib arrest, ventilator dependance, lactic acidosis, leukocytosis, hypotension, hx adrenal insufficiency Acute, or Chronic, or Acute on Chronic? @ -acute Uncomplicated (without systemic symptoms) or Complicated (systemic symptoms)? @ -complicated Side effects of treatment? @ -No Exacerbation, Progression, or Severe Exacerbation? @ -No Poses a threat to life or bodily function? How? (Chest pain, USA, DC, pneumonia, PE, COPD, DKA, ARF, appy, cholecystitis, CVA, Diverticulitis, Homicidal, Suicidal, threat to staff... and all critical care pts) @ -yes, patient sustained cardiac arrest - Lab Data Result diagrams: 10/08/23 05:35 10/08/23 05:35 Lab Results 10/06/23 10/06/23 10/06/23 Range/Units 09:50 09:50 09:50 WBC 19.1 H (3.8-10.6) k/uL RBC 4.14 (3.80-5.40) m/uL Hgb 14.4 (11.4-16.0) gm/dL Hct 44.6 (34.0-46.0) % MCV 107.8 H (80.0-100.0) fL MCH 34.9 (25.0-35.0) pg MCHC 32.4 (31.0-37.0) g/dL RDW 13.6 (11.5-15.5) % Plt Count 279 (150-450) k/uL MPV 8.9 Neutrophils % (Manual) 46 % Band Neuts % (Manual) 8 % Lymphocytes % (Manual) 39 % Monocytes % (Manual) 6 % Eosinophils % (Manual) 1 % Basophils % (Manual) 1 % Metamyelocytes % 1 % Neutrophils # (Manual) 10.30 H (1.3-7.7) k/uL Lymphocytes # (Manual) 7.45 H (1.0-4.8) k/uL Monocytes # (Manual) 1.15 H (0-1.0) k/uL Eosinophils # (Manual) 0.19 (0-0.7) k/uL Basophils # (Manual) 0.19 (0-0.2) k/uL Metamyelocytes # (Man) 0.19 H (0) k/uL Nucleated RBCs 0 (0-0) /100 WBC Manual Slide Review Performed Hypochromasia Slight Macrocytosis Moderate PT 11.0 (10.0-12.5) sec INR 1.0 (<1.2) APTT 20.2 L (22.0-30.0) sec Sample Site ABG pH (7.35-7.45) ABG pCO2 (35-45) mmHg ABG pO2 (83-108) mmHg ABG HCO3 (21-25) mmol/L ABG Total CO2 (19-24) mmol/L ABG O2 Saturation (94-97) % ABG Base Excess mmol/L Goran Test FiO2 % Sodium (137-145) mmol/L Potassium (3.5-5.1) mmol/L Chloride (98-107) mmol/L Carbon Dioxide (22-30) mmol/L Anion Gap mmol/L BUN (7-17) mg/dL Creatinine (0.52-1.04) mg/dL Est GFR (CKD-EPI)AfAm (>60 ml/min/1.73 sqM) Est GFR (CKD-EPI)NonAf (>60 ml/min/1.73 sqM) Glucose (74-99) mg/dL POC Glucose (mg/dL) (70-110) mg/dL POC Glu Java Architect ID Lactic Ac Sepsis Rflx Plasma Lactic Acid Matthew (0.7-2.0) mmol/L Calcium (8.4-10.2) mg/dL Total Bilirubin (0.2-1.3) mg/dL AST (14-36) U/L ALT (4-34) U/L Alkaline Phosphatase (38-126) U/L Troponin I (0.000-0.034) ng/mL Total Protein (6.3-8.2) g/dL Albumin (3.5-5.0) g/dL TSH (0.465-4.680) mIU/L Urine Opiates Screen Not Detected (NotDetected) Ur Oxycodone Screen Detected H (NotDetected) Urine Methadone Screen Not Detected (NotDetected) Acetaminophen ug/mL Ur Barbiturates Screen Not Detected (NotDetected) U Tricyclic Antidepress Detected H (NotDetected) Ur Phencyclidine Scrn Not Detected (NotDetected) Ur Amphetamines Screen Not Detected (NotDetected) U Methamphetamines Scrn Not Detected (NotDetected) U Benzodiazepines Scrn Not Detected (NotDetected) Urine Cocaine Screen Not Detected (NotDetected) U Marijuana (THC) Screen Not Detected (NotDetected) Serum Alcohol mg/dL 10/06/23 10/06/23 10/06/23 Range/Units 09:50 09:50 09:50 WBC (3.8-10.6) k/uL RBC (3.80-5.40) m/uL Hgb (11.4-16.0) gm/dL Hct (34.0-46.0) % MCV (80.0-100.0) fL MCH (25.0-35.0) pg MCHC (31.0-37.0) g/dL RDW (11.5-15.5) % Plt Count (150-450) k/uL MPV Neutrophils % (Manual) % Band Neuts % (Manual) % Lymphocytes % (Manual) % Monocytes % (Manual) % Eosinophils % (Manual) % Basophils % (Manual) % Metamyelocytes % % Neutrophils # (Manual) (1.3-7.7) k/uL Lymphocytes # (Manual) (1.0-4.8) k/uL Monocytes # (Manual) (0-1.0) k/uL Eosinophils # (Manual) (0-0.7) k/uL Basophils # (Manual) (0-0.2) k/uL Metamyelocytes # (Man) (0) k/uL Nucleated RBCs (0-0) /100 WBC Manual Slide Review Hypochromasia Macrocytosis PT (10.0-12.5) sec INR (<1.2) APTT (22.0-30.0) sec Sample Site ABG pH (7.35-7.45) ABG pCO2 (35-45) mmHg ABG pO2 (83-108) mmHg ABG HCO3 (21-25) mmol/L ABG Total CO2 (19-24) mmol/L ABG O2 Saturation (94-97) % ABG Base Excess mmol/L Goran Test FiO2 % Sodium 139 (137-145) mmol/L Potassium 4.6 (3.5-5.1) mmol/L Chloride 104 (98-107) mmol/L Carbon Dioxide 10 L (22-30) mmol/L Anion Gap 25 mmol/L BUN 20 H (7-17) mg/dL Creatinine 1.12 H (0.52-1.04) mg/dL Est GFR (CKD-EPI)AfAm 65 (>60 ml/min/1.73 sqM) Est GFR (CKD-EPI)NonAf 57 (>60 ml/min/1.73 sqM) Glucose 218 H (74-99) mg/dL POC Glucose (mg/dL) (70-110) mg/dL POC Glu Java Architect ID Lactic Ac Sepsis Rflx Plasma Lactic Acid Matthew 10.3 H* (0.7-2.0) mmol/L Calcium 9.1 (8.4-10.2) mg/dL Total Bilirubin 0.6 (0.2-1.3) mg/dL AST 121 H (14-36) U/L ALT 90 H (4-34) U/L Alkaline Phosphatase 109 (38-126) U/L Troponin I 0.659 H* (0.000-0.034) ng/mL Total Protein 7.1 (6.3-8.2) g/dL Albumin 4.3 (3.5-5.0) g/dL TSH 0.836 (0.465-4.680) mIU/L Urine Opiates Screen (NotDetected) Ur Oxycodone Screen (NotDetected) Urine Methadone Screen (NotDetected) Acetaminophen <10.0 ug/mL Ur Barbiturates Screen (NotDetected) U Tricyclic Antidepress (NotDetected) Ur Phencyclidine Scrn (NotDetected) Ur Amphetamines Screen (NotDetected) U Methamphetamines Scrn (NotDetected) U Benzodiazepines Scrn (NotDetected) Urine Cocaine Screen (NotDetected) U Marijuana (THC) Screen (NotDetected) Serum Alcohol <10 mg/dL 10/06/23 10/06/23 10/06/23 Range/Units 09:51 10:08 10:18 WBC (3.8-10.6) k/uL RBC (3.80-5.40) m/uL Hgb (11.4-16.0) gm/dL Hct (34.0-46.0) % MCV (80.0-100.0) fL MCH (25.0-35.0) pg MCHC (31.0-37.0) g/dL RDW (11.5-15.5) % Plt Count (150-450) k/uL MPV Neutrophils % (Manual) % Band Neuts % (Manual) % Lymphocytes % (Manual) % Monocytes % (Manual) % Eosinophils % (Manual) % Basophils % (Manual) % Metamyelocytes % % Neutrophils # (Manual) (1.3-7.7) k/uL Lymphocytes # (Manual) (1.0-4.8) k/uL Monocytes # (Manual) (0-1.0) k/uL Eosinophils # (Manual) (0-0.7) k/uL Basophils # (Manual) (0-0.2) k/uL Metamyelocytes # (Man) (0) k/uL Nucleated RBCs (0-0) /100 WBC Manual Slide Review Hypochromasia Macrocytosis PT (10.0-12.5) sec INR (<1.2) APTT (22.0-30.0) sec Sample Site Right Radial ABG pH 7.18 L* (7.35-7.45) ABG pCO2 42 (35-45) mmHg ABG pO2 363 H (83-108) mmHg ABG HCO3 16 L (21-25) mmol/L ABG Total CO2 17 L (19-24) mmol/L ABG O2 Saturation 99.5 H (94-97) % ABG Base Excess -12.5 mmol/L Goran Test Yes FiO2 100 % Sodium (137-145) mmol/L Potassium (3.5-5.1) mmol/L Chloride (98-107) mmol/L Carbon Dioxide (22-30) mmol/L Anion Gap mmol/L BUN (7-17) mg/dL Creatinine (0.52-1.04) mg/dL Est GFR (CKD-EPI)AfAm (>60 ml/min/1.73 sqM) Est GFR (CKD-EPI)NonAf (>60 ml/min/1.73 sqM) Glucose (74-99) mg/dL POC Glucose (mg/dL) 214 H (70-110) mg/dL POC Glu Java Architect ID Baldomero Osborne Lactic Ac Sepsis Rflx Y Plasma Lactic Acid Matthew (0.7-2.0) mmol/L Calcium (8.4-10.2) mg/dL Total Bilirubin (0.2-1.3) mg/dL AST (14-36) U/L ALT (4-34) U/L Alkaline Phosphatase (38-126) U/L Troponin I (0.000-0.034) ng/mL Total Protein (6.3-8.2) g/dL Albumin (3.5-5.0) g/dL TSH (0.465-4.680) mIU/L Urine Opiates Screen (NotDetected) Ur Oxycodone Screen (NotDetected) Urine Methadone Screen (NotDetected) Acetaminophen ug/mL Ur Barbiturates Screen (NotDetected) U Tricyclic Antidepress (NotDetected) Ur Phencyclidine Scrn (NotDetected) Ur Amphetamines Screen (NotDetected) U Methamphetamines Scrn (NotDetected) U Benzodiazepines Scrn (NotDetected) Urine Cocaine Screen (NotDetected) U Marijuana (THC) Screen (NotDetected) Serum Alcohol mg/dL Disposition Clinical Impression: Ventricular fibrillation, Cardiac arrest, Ventilator dependence Disposition: ADMITTED IP TO THIS [facility] Condition: Serious Is patient prescribed a controlled substance at d/c from ED?: No Time of Disposition: 10:43 Decision to Admit Reason: Admit from EC Decision Date: 10/06/23 Decision Time: 10:43
[2023-10-06 11:30] LABS: Band Neutrophils % 8 %; Basophils # (M) 0.19 k/uL (0-0.2); Eosinophils # (M) 0.19 k/uL (0-0.7); Lymphocytes # (M) 7.45 k/uL (1.0-4.8); Metamyelocytes # (M) 0.19 k/uL (0); Metamyelocytes % 1 %; Monocytes # (M) 1.15 k/uL (0-1.0); Neutrophils % (M) 46 %; Nucleated Red Blood Cells 0 /100 WBC (0-0); Total Cells Counted 200
[2023-10-06] MEDS ORDERED: NALOXONE 0.4 MG/ML 1 ML VIAL IV PRN ×2 (11:31→14:48)
--- NOTE | 2023-10-06 11:35 | P.HPIM ---
History of Present Illness Patient is a 53-year-old female admitted after a cardiac respiratory arrest patient was in V. tach and patient received multiple doses of amiodarone, epinephrine after which patient returned to normal sinus rhythm patient was subsequently intubated and brought to the ER. Patient does have gag reflex brain stem reflexes and patient is comparing over the vent at this time. Total down time is around 15 minutes. Patient subsequently of troponin is elevated at this time patient has severe metabolic acidosis and lactic acidosis. Patient was recently admitted to the hospital for chest pain and she left against medical advise at that time. Patient does have leukocytosis. He is not available at this time but urine drug screen is positive for tricyclic antidepressants and oxycodone, plasma lactate of 10.3 chest x-ray didn't show any pneumonia patient presently intubated and endotracheal tube, patient is hypotensive does have history of adrenal insufficiency see patient was started on a high dose of hydrocortisone IV fluids is being admitted to ICU. REVIEW OF SYSTEMS: Unable to obtain at this time PHYSICAL EXAMINATION: GENERAL: Patient is intubated sedated at does have cough reflex Reflux HEENT: Pupils are round and equally reacting to light. EOMI. No scleral icterus. No conjunctival pallor. Normocephalic, atraumatic. No pharyngeal erythema. No thyromegaly. CARDIOVASCULAR: S1 and S2 present. No murmurs, rubs, or gallops. PULMONARY: Chest is clear to auscultation, no wheezing or crackles. ABDOMEN: Soft, nontender, nondistended, normoactive bowel sounds. No palpable organomegaly. MUSCULOSKELETAL: No joint swelling or deformity. EXTREMITIES: No cyanosis, clubbing, or pedal edema. NEUROLOGICAL: Brain stem reflexes are intact SKIN: No rashes. Assessment and plan After cardiorespiratory arrest, went to tachycardia down from 15 minutes etiology is not clear patient has right bundle-branch block on the EKG with mildly elevated troponin can be primary cardiac causes including myocardial infarction cardiology will be consulted will repeat troponins. The other possible etiology being adrenal insufficiency for which patient was started on hydrocortisone no evidence of sepsis at this time -Lactic acidosis and anion gap metabolic acidosis severe secondary to severe intravascular on depletion and cardiorespiratory arrest patient need to be aggressively hydrated the patient will be started on 1 50 mL of normal saline received boluses of IV fluids unknown how many. -Acute respiratory failure secondary to cardiorespiratory arrest patient is presently intubated will be admitted to ICU -8 acute renal insufficiency patient will be started on 100 mg 3 times a day of hydrocortisone -Possible1 non-ST elevation myocardial infarction will need heparin cardiology consultation -Type 2 diabetes mellitus -Acute renal failure possibly acute tubular necrosis, monitor urine output patient has a Vasques catheter -Leukocytosis reactive so far there is no evidence of infection Shock mostly either cardiogenic or secondary to severity and I'll insufficiency patient was started on norepinephrine -COPD without any clicks admission and 10 have Probably be Hypertension -Hypothyroidism -Seizure disorder DVT prophylaxis: Subcutaneous heparin Past Medical History Past Medical History: Cancer, COPD, Fibromyalgia, GERD/Reflux, Hyperlipidemia, Hypertension, Osteoarthritis (OA), Pneumonia, Seizure Disorder, Thyroid Disorder Additional Past Medical History / Comment(s): LAST SEIZURE about 1 yr ago. needs to get back on tegretol .H-pylori, arthritis in multiple joints, compression fracture L1 with chronic pain, , hypothyroid, , past elevated liver function tests, L breast "lump" being monitored, she has had blurry vision tri focals./bed wetting. weak bladder Cervical CA with hysterectomy. Adrenal insufficency. heartburn worse, ? reoccurance of hiatal hernia. seasonal allergies. History of Any Multi-Drug Resistant Organisms: MRSA Date of last positivie culture/infection: 05/17/23 MDRO Source:: Right Foot Past Surgical History: Adenoidectomy, Breast Surgery, Cholecystectomy, Hysterectomy, Orthopedic Surgery, Tonsillectomy, Tubal Ligation Additional Past Surgical History / Comment(s): Bilateral breast implants, bilateral oophorectomy d/t cysts, EGDs, EGD with dilation, susu fundoplication with revision, R elbow surgery for MRSA infection, R rotator cuff repair, low back surgery (cemented), bilateral hip surgery for tendon/muscle repairs/screws in place. Cervical fusion C4,5,6,7 Past Anesthesia/Blood Transfusion Reactions: Family History of Problems w/ Anesthesia Additional Past Anesthesia/Blood Transfusion Reaction / Comment(s): MOTHER= A- FIB WITH ANESTHESIA. Past Psychological History: Anxiety, Bipolar, Depression Smoking Status: Current every day smoker - Past Family History Father Family Medical History: Eye Disorder, Hypertension Additional Family Medical History / Comment(s): Father committed suicide at the age of 58yrs. He had glaucoma Brother(s) Family Medical History: No Reported History Additional Family Medical History / Comment(s): She has one brother that is a recovered alcoholic with no other major medical problems. Sister(s) Additional Family Medical History / Comment(s): Patient has one sister that suffers from depression and anxiety Mother Family Medical History: Cancer, Dementia, Diabetes Mellitus, Deep Vein Thrombosis (DVT), Eye Disorder, Hypertension Additional Family Medical History / Comment(s): Corneal transplant, breast cancer Medications and Allergies Home Medications Medication Instructions Recorded Confirmed Type oxyCODONE-APAP 10-325MG [Percocet 1 tab PO TID PRN 07/21/20 10/06/23 History 10-325 mg] Cyclobenzaprine [Flexeril] 10 mg PO TID PRN #15 tab 07/23/22 10/06/23 Rx diphenhydrAMINE HCL [Benadryl 25 mg PO TID 09/05/23 10/06/23 History Allergy] Melatonin 5 mg PO HS 10/02/23 10/06/23 History Naloxegol Oxalate [Movantik] 25 mg PO DAILY PRN 10/02/23 10/06/23 History Nitrofurantoin Monohyd/M-Cryst 100 mg PO BID 10/02/23 10/06/23 History [Macrobid] Omeprazole [PriLOSEC] 40 mg PO DAILY 10/02/23 10/06/23 History Pantoprazole Sodium [Protonix] 40 mg PO DAILY 10/02/23 10/06/23 History lisinopriL [Zestril] 5 mg PO BID 10/02/23 10/06/23 History Allergies Allergy/AdvReac Type Severity Reaction Status Date / Time Penicillins Allergy Severe Anaphylaxis Verified 10/06/23 11:01 Iodinated Contrast Media Allergy Unknown Rash/Hives Verified 10/06/23 11:01 [Iodinated Contrast Media - IV Dye] egg yolk Allergy Nausea Verified 10/06/23 11:01 mustard Allergy Nausea Verified 10/06/23 11:01 Sulfa (Sulfonamide Allergy Rash/Hives Verified 10/06/23 11:01 Antibiotics) sulfamethoxazole Allergy Rash/Hives Verified 10/06/23 11:01 [From Bactrim] trimethoprim [From Bactrim] Allergy Rash/Hives Verified 10/06/23 11:01 Physical Exam Vitals: Vital Signs Pulse Resp BP Pulse Ox FiO2 10/06/23 10:55 87 16 77/47 100 10/06/23 10:50 91 16 76/46 100 10/06/23 10:45 93 16 84/57 100 10/06/23 10:40 92 16 78/52 100 10/06/23 10:33 96 16 87/57 100 10/06/23 10:25 97 16 79/48 100 10/06/23 10:20 98 16 77/47 100 10/06/23 10:19 50 10/06/23 10:15 100 16 79/46 100 10/06/23 10:05 106 H 16 90/56 100 10/06/23 09:58 100 10/06/23 09:45 102 H 16 90/60 100 10/06/23 09:34 113 H 20 97/68 100 Intake and Output 10/05/23 10/06/23 10/06/23 22:59 06:59 14:59 Output Total 3 Balance -3 Output: Urine 3 Uretheral (Vasques) 3 Other: Weight 83.37 kg Results CBC & Chem 7: 10/06/23 09:50 10/06/23 09:50 Labs: Abnormal Lab Results - Last 24 Hours (Table) 10/06/23 10/06/23 10/06/23 Range/Units 09:50 09:50 09:50 WBC 19.1 H (3.8-10.6) k/uL MCV 107.8 H (80.0-100.0) fL Neutrophils # (Manual) 10.30 H (1.3-7.7) k/uL Lymphocytes # (Manual) 7.45 H (1.0-4.8) k/uL Monocytes # (Manual) 1.15 H (0-1.0) k/uL Metamyelocytes # (Man) 0.19 H (0) k/uL APTT 20.2 L (22.0-30.0) sec ABG pH (7.35-7.45) ABG pO2 (83-108) mmHg ABG HCO3 (21-25) mmol/L ABG Total CO2 (19-24) mmol/L ABG O2 Saturation (94-97) % Carbon Dioxide (22-30) mmol/L BUN (7-17) mg/dL Creatinine (0.52-1.04) mg/dL Glucose (74-99) mg/dL POC Glucose (mg/dL) (70-110) mg/dL Plasma Lactic Acid Matthew (0.7-2.0) mmol/L AST (14-36) U/L ALT (4-34) U/L Troponin I (0.000-0.034) ng/mL Ur Oxycodone Screen Detected H (NotDetected) U Tricyclic Antidepress Detected H (NotDetected) 10/06/23 10/06/23 10/06/23 Range/Units 09:50 09:50 09:50 WBC (3.8-10.6) k/uL MCV (80.0-100.0) fL Neutrophils # (Manual) (1.3-7.7) k/uL Lymphocytes # (Manual) (1.0-4.8) k/uL Monocytes # (Manual) (0-1.0) k/uL Metamyelocytes # (Man) (0) k/uL APTT (22.0-30.0) sec ABG pH (7.35-7.45) ABG pO2 (83-108) mmHg ABG HCO3 (21-25) mmol/L ABG Total CO2 (19-24) mmol/L ABG O2 Saturation (94-97) % Carbon Dioxide 10 L (22-30) mmol/L BUN 20 H (7-17) mg/dL Creatinine 1.12 H (0.52-1.04) mg/dL Glucose 218 H (74-99) mg/dL POC Glucose (mg/dL) (70-110) mg/dL Plasma Lactic Acid Matthew 10.3 H* (0.7-2.0) mmol/L AST 121 H (14-36) U/L ALT 90 H (4-34) U/L Troponin I 0.659 H* (0.000-0.034) ng/mL Ur Oxycodone Screen (NotDetected) U Tricyclic Antidepress (NotDetected) 10/06/23 10/06/23 Range/Units 09:51 10:08 WBC (3.8-10.6) k/uL MCV (80.0-100.0) fL Neutrophils # (Manual) (1.3-7.7) k/uL Lymphocytes # (Manual) (1.0-4.8) k/uL Monocytes # (Manual) (0-1.0) k/uL Metamyelocytes # (Man) (0) k/uL APTT (22.0-30.0) sec ABG pH 7.18 L* (7.35-7.45) ABG pO2 363 H (83-108) mmHg ABG HCO3 16 L (21-25) mmol/L ABG Total CO2 17 L (19-24) mmol/L ABG O2 Saturation 99.5 H (94-97) % Carbon Dioxide (22-30) mmol/L BUN (7-17) mg/dL Creatinine (0.52-1.04) mg/dL Glucose (74-99) mg/dL POC Glucose (mg/dL) 214 H (70-110) mg/dL Plasma Lactic Acid Matthew (0.7-2.0) mmol/L AST (14-36) U/L ALT (4-34) U/L Troponin I (0.000-0.034) ng/mL Ur Oxycodone Screen (NotDetected) U Tricyclic Antidepress (NotDetected)
[2023-10-06] MEDS ORDERED: SODIUM CHLORIDE 0.9% 1,000 ML IV SCH (11:45)
[2023-10-06] MEDS ORDERED: HEPARIN SODIUM 1,000 UN/ML (10ML VL) IV PRN (12:03)
[2023-10-06] MEDS ORDERED: HEPARIN SODIUM 1,000 UN/ML (10ML VL) IV ONE (12:03)
[2023-10-06] MEDS ORDERED: ASPIRIN 300 MG SUPP RECTAL STA (12:04)
[2023-10-06] MEDS: PANTOPRAZOLE 40 MG/10 ML VIAL IVP SCH (12:57)
--- NOTE | 2023-10-06 12:59 | CT ---
EXAMINATION TYPE: CT brain wo con HISTORY: AMS. pt intubated CT DLP: 1165.4 mGycm Automated exposure control for dose reduction was used. DATE OF EXAM: 10/06/2023 COMPARISON: 10/26/2020 Findings: The ventricles, basal cisterns and sulci over the convexities are within normal limits and there is n o mass effect or shift of midline structures. No abnormal density is seen throughout the brain parenchyma and there is no acute intra or extra-axia l hemorrhage. The posterior fossa including the brainstem, fourth ventricle and cerebellar pontine angles appear no rmal. Intraorbital contents appear normal and symmetric. Visualized paranasal sinuses and mastoid air cells are well aerated. The calvarium is intact. IMPRESSION: No significant abnormality seen. There is no acute bleed or mass effect.
--- NOTE | 2023-10-06 12:59 | XR ---
EXAMINATION TYPE: XR chest 1V confirm line [facility] DATE OF EXAM: 10/06/2023 COMPARISON: 10/06/2023 HISTORY: Central line placement TECHNIQUE: Chest exam and AP supine view FINDINGS: Lung apices are at the edge of the [id number]. Supine positioning limit evaluation for s mall pneumothorax. A sizable pneumothorax is Heart size is normal. Pulmonary vasculature. Right central venous catheter is placed with tip in the region of the superior vena cava. Endotracheal tube tip is above the coty. Nasogastric tube transve rses the thorax with the tip in the proximal left upper quadrant of the abdomen. No suspicious lung i nfiltrates evident. IMPRESSION: 1. No sizable pneumothorax evident. A small pneumothorax may not be visualized spine position. 2. Right central venous catheter placement with the tip in the superior vena cava region. 3. Additional lines and catheters discussed above.
[2023-10-06] MEDS: HEPARIN SOD,PORK IN 0.45% NACL 25,000 UNIT in 0.45% NACL 1 250ML.BAG IV SCH (13:04)
[2023-10-06] MEDS ORDERED: NITROGLYCERIN SL TABS 0.4 MG TAB SUBLINGUAL PRN (13:08)
[2023-10-06] MEDS ORDERED: ATORVASTATIN 80 MG TAB PO STA (13:08)
[2023-10-06] MEDS ORDERED: ALPRAZolam 0.25 MG TAB PO PRN (13:08)
[2023-10-06] MEDS ORDERED: ASPIRIN 325 MG TAB PO STA (13:08)
[2023-10-06] MEDS ORDERED: ALPRAZolam 0.5 MG TAB PO PRN (13:08)
[2023-10-06] MEDS ORDERED: diphenhydrAMINE 50 MG/ML 1 ML VIAL ONE (13:43)
[2023-10-06] MEDS ORDERED: methylPREDNISolone SOD SUCCI 125 MG/2 ML VIAL ONE (13:43)
[2023-10-06] MEDS ORDERED: IV FLUID CONTINUATION 1,000 ML IV ONE (13:44)
[2023-10-06] MEDS ORDERED: methylPREDNISolone SOD SUCCI 125 MG/2 ML VIAL IV ONE (13:44)
[2023-10-06] MEDS ORDERED: diphenhydrAMINE 50 MG/ML 1 ML VIAL IVP ONE (13:44)
[2023-10-06] MEDS ORDERED: LIDOCAINE 1% INJ 10MG/ML (20 ML MDV) SQ ONE (13:45)
[2023-10-06] MEDS ORDERED: VERAPAMIL SYRINGE (5 MG/10 ML) INTRAARTER ONE (13:46)
[2023-10-06] MEDS ORDERED: CLOPIDOGREL 75 MG TAB ONE (14:03)
[2023-10-06] MEDS ORDERED: CLOPIDOGREL 75 MG TAB NG-TUBE ONE (14:14)
[2023-10-06] MEDS ORDERED: NITROGLYCERIN 1000MCG/10ML SYRINGE INTRACORON ONE ×2 (14:15)
[2023-10-06] MEDS ORDERED: IOPAMIDOL-370 100ML BTL INJ ONE (14:18)
[2023-10-06] MEDS ORDERED: NON FORMULARY DRUG (Naloxegol Oxalate [Movantik] 25 MG Tablet) PO PRN (14:21)
[2023-10-06] MEDS ORDERED: ZOLPIDEM 5 MG TAB PO PRN (14:23)
[2023-10-06] MEDS ORDERED: ATROPINE SULFATE 0.1 MG/ML 10ML SYRINGE IV PRN (14:23)
[2023-10-06] MEDS ORDERED: RX INFO: IV CONTRAST WAS GIVEN 1 EACH MISC MISCELLANE PRN (14:23)
[2023-10-06] MEDS ORDERED: MAG HYDROX/AL HYDROX/SIMETH 30 ML CUP PO PRN (14:23)
--- NOTE | 2023-10-06 14:29 | P.CRDCN ---
History of Present Illness History of present illness: HISTORY OF PRESENT ILLNESS: This is a 53-year-old female who does not follow with a payment manager. Patient presented to the hospital via EMS secondary to cardiac arrest. Apparently the patient was complaining of chest pain this morning and then collapsed in front o f her fianc. EMS was called. The patient was in cardiac arrest with a rhythm of ventricular fibrillation according to EMS. CPR was started. The patient required defibrillation 3 times. Patient also received 3 doses of epinephrine and amiodarone. Proximal midline downtime was 15 minutes. The patient is currently intubated and unable to provide any history. She is hypotensive and has been started on levophed along with IV fluid hydration. EKG obtained in the emergency room reveals sinus mechanism with a right bundle-branch block with mild ST elevation in V1 and V2 with T-wave inversions in V1V3. EKG abnormalities are new compared to previous EKG. It is noted that the patient presented to the emergency room on 10/02/2023 with chest pain but left AMA. REVIEW OF SYSTEMS: At the time of my exam: Unable to obtain review of systems secondary to IV sedation and mechanical ventilation PHYSICAL EXAM: VITAL SIGNS: Reviewed. GENERAL: Well-developed in no acute distress. Sedated. HEENT: Head is normocephalic. Pupils are equal, round. Sclerae anicteric. Mucous membranes of the mouth are moist. Neck supple. No JVD or thyromegaly LUNGS: Respirations even and unlabored-on mechanical ventilation. Lungs essentially clear to auscultation bilaterally. HEART: Regular rate and rhythm. S1 and S2 heard. ABDOMEN: Soft. Nondistended. Nontender. EXTREMITIES: Normal range of motion. No clubbing or cyanosis. Peripheral pulses intact. No lower extremity edema NEUROLOGIC: Sedated on mechanical ventilation ASSESSMENT: Cardiac arrest; ventricular fibrillation Acute hypoxic respiratory failure requiring mechanical ventilation Elevated troponins, possible non-STEMI with abnormal EKG Leukocytosis Lactic acidosis History of alcohol abuse Nicotine dependence History of adrenal insufficiency History of hypertension, prescribed lisinopril on an outpatient basis PLAN: Obtain 2-D echo to assess cardiac structure and function Obtain d-dimer Continue IV heparin Patient to undergo cardiac catheterization today with Dr. Hickey Further recommendations pending patient's course Nurse practitioner note has been reviewed by physician. Signing provider agrees with the documented findings, assessment, and plan of care. Past Medical History Past Medical History: Cancer, COPD, Fibromyalgia, GERD/Reflux, Hyperlipidemia, Hypertension, Osteoarthritis (OA), Pneumonia, Seizure Disorder, Thyroid Disorder Additional Past Medical History / Comment(s): LAST SEIZURE about 1 yr ago. needs to get back on tegretol .H-pylori, arthritis in multiple joints, compression fracture L1 with chronic pain, , hypothyroid, , past elevated liver function tests, L breast "lump" being monitored, she has had blurry vision tri focals./bed wetting. weak bladder Cervical CA with hysterectomy. Adrenal insufficency. heartburn worse, ? reoccurance of hiatal hernia. seasonal allergies. History of Any Multi-Drug Resistant Organisms: MRSA Date of last positivie culture/infection: 05/17/23 MDRO Source:: Right Foot Past Surgical History: Adenoidectomy, Breast Surgery, Cholecystectomy, Hysterectomy, Orthopedic Surgery, Tonsillectomy, Tubal Ligation Additional Past Surgical History / Comment(s): Bilateral breast implants, bilateral oophorectomy d/t cysts, EGDs, EGD with dilation, susu fundoplication with revision, R elbow surgery for MRSA infection, R rotator cuff repair, low back surgery (cemented), bilateral hip surgery for tendon/muscle repairs/screws in place. Cervical fusion C4,5,6,7 Past Anesthesia/Blood Transfusion Reactions: Family History of Problems w/ Ane sthesia Additional Past Anesthesia/Blood Transfusion Reaction / Comment(s): MOTHER= A- FIB WITH ANESTHESIA. Past Psychological History: Anxiety, Bipolar, Depression Smoking Status: Current every day smoker - Past Family History Father Family Medical History: Eye Disorder, Hypertension Additional Family Medical History / Comment(s): Father committed suicide at the age of 58yrs. He had glaucoma Brother(s) Family Medical History: No Reported History Additional Family Medical History / Comment(s): She has one brother that is a recovered alcoholic with no other major medical problems. Sister(s) Additional Family Medical History / Comment(s): Patient has one sister that suffers from depression and anxiety Mother Family Medical History: Cancer, Dementia, Diabetes Mellitus, Deep Vein Thrombosis (DVT), Eye Disorder, Hypertension Additional Family Medical History / Comment(s): Corneal transplant, breast cancer Medications and Allergies Home Medications Medication Instructions Recorded Confirmed Type oxyCODONE-APAP 10-325MG [Percocet 1 tab PO TID PRN 07/21/20 10/06/23 History 10-325 mg] Cyclobenzaprine [Flexeril] 10 mg PO TID PRN #15 tab 07/23/22 10/06/23 Rx diphenhydrAMINE HCL [Benadryl 25 mg PO TID 09/05/23 10/06/23 History Allergy] Melatonin 5 mg PO HS 10/02/23 10/06/23 History Naloxegol Oxalate [Movantik] 25 mg PO DAILY PRN 10/02/23 10/06/23 History Nitrofurantoin Monohyd/M-Cryst 100 mg PO BID 10/02/23 10/06/23 History [Macrobid] Omeprazole [PriLOSEC] 40 mg PO DAILY 10/02/23 10/06/23 History Pantoprazole Sodium [Protonix] 40 mg PO DAILY 10/02/23 10/06/23 History lisinopriL [Zestril] 5 mg PO BID 10/02/23 10/06/23 History Allergies Allergy/AdvReac Type Severity Reaction Status Date / Time Penicillins Allergy Severe Anaphylaxis Verified 10/06/23 11:01 Iodinated Contrast Media Allergy Unknown Rash/Hives Verified 10/06/23 11:01 [Iodinated Contrast Media - IV Dye] egg yolk Allergy Nausea Verified 10/06/23 11:01 mustard Allergy Nausea Verified 10/06/23 11:01 Sulfa (Sulfonamide Allergy Rash/Hives Verified 10/06/23 11:01 Antibiotics) sulfamethoxazole Allergy Rash/Hives Verified 10/06/23 11:01 [From Bactrim] trimethoprim [From Bactrim] Allergy Rash/Hives Verified 10/06/23 11:01 Physical Exam Vitals: Vital Signs Temp Pulse Resp BP Pulse Ox FiO2 10/06/23 13:13 97.5 F L 97 16 116/89 100 10/06/23 13:00 90 18 104/78 100 10/06/23 12:45 96 16 103/79 100 10/06/23 12:44 50 10/06/23 12:30 80 18 113/50 100 10/06/23 12:00 82 16 103/67 100 10/06/23 11:35 86 16 93/61 100 10/06/23 10:55 87 16 77/47 100 10/06/23 10:50 91 16 76/46 100 10/06/23 10:45 93 16 84/57 100 10/06/23 10:40 92 16 78/52 100 10/06/23 10:33 96 16 87/57 100 10/06/23 10:25 97 16 79/48 100 10/06/23 10:20 98 16 77/47 100 10/06/23 10:19 50 10/06/23 10:15 100 16 79/46 100 10/06/23 10:05 106 H 16 90/56 100 10/06/23 09:58 100 10/06/23 09:45 102 H 16 90/60 100 10/06/23 09:34 113 H 20 97/68 100 Intake and Output 10/05/23 10/06/23 10/06/23 22:59 06:59 14:59 Intake Total 16.633 Output Total 3 Balance 13.633 Intake: Intake, IV Titration 16.633 Amount propofoL 1,000 mg In 16.633 Empty Bag 1 bag @ 15 MCG/ KG/MIN 7.503 mls/hr IV . [id number] [facility] Rx#:[id number] Output: Urine 3 Uretheral (Vasques) 3 Other: Weight 83.37 kg Results 10/06/23 09:50 10/06/23 09:50 Cardiac Enzymes 10/06/23 10/06/23 Range/Units 09:50 09:50 AST 121 H (14-36) U/L Troponin I 0.659 H* (0.000-0.034) ng/mL Coagulation 10/06/23 Range/Units 09:50 PT 11.0 (10.0-12.5) sec APTT 20.2 L (22.0-30.0) sec CBC 10/06/23 Range/Units 09:50 WBC 19.1 H (3.8-10.6) k/uL RBC 4.14 (3.80-5.40) m/uL Hgb 14.4 (11.4-16.0) gm/dL Hct 44.6 (34.0-46.0) % Plt Count 279 (150-450) k/uL Comprehensive Metabolic Panel 10/06/23 Range/Units 09:50 Sodium 139 (137-145) mmol/L Potassium 4.6 (3.5-5.1) mmol/L Chloride 104 (98-107) mmol/L Carbon Dioxide 10 L (22-30) mmol/L BUN 20 H (7-17) mg/dL Creatinine 1.12 H (0.52-1.04) mg/dL Glucose 218 H (74-99) mg/dL Calcium 9.1 (8.4-10.2) mg/dL AST 121 H (14-36) U/L ALT 90 H (4-34) U/L Alkaline Phosphatase 109 (38-126) U/L Total Protein 7.1 (6.3-8.2) g/dL Albumin 4.3 (3.5-5.0) g/dL Current Medications Generic Name Dose Route Start Last Admin Trade Name Freq PRN Reason Stop Dose Admin Alprazolam 0.25 mg 10/06/23 13:08 Alprazolam 0.25 Mg Tab PO Q6HR PRN Mild Anxiety Alprazolam 0.5 mg 10/06/23 13:08 Alprazolam 0.5 Mg Tab PO Q6HR PRN Moderate Anxiety Heparin Sodium (Porcine) 0 unit 10/06/23 12:03 Heparin Sodium 1,000 Un/Ml (10ml Vl) IV PER PROTOCOL PRN Low PTT Protocol Hydrocortisone Sodium Succinate 100 mg 10/06/23 16:00 Hydrocortisone Succinate 100 Mg/2 Ml Vial IV TID MISAEL Norepinephrine Bitartrate 32 250 mls @ 1.172 mls/hr 10/06/23 10:19 10/06/23 12:03 mg/ Sodium Chloride IV 10/07/23 10:18 0.03 mcg/kg/min .Q24H ONE 1.172 mls/hr Administration Protocol 0.03 MCG/KG/MIN Sodium Chloride 1,000 mls @ 100 mls/hr 10/06/23 11:45 10/06/23 12:41 Saline 0.9% IV 100 mls/hr .Q10H MISAEL Administration Heparin Sodium/Sodium Chloride 250 mls @ 10 mls/hr 10/06/23 12:15 10/06/23 13:04 25,000 unit/ Sodium Chloride IV 11.995 units/kg/hr .Q24H MISAEL 10 mls/hr Administration Protocol 11.995 UNITS/KG/HR Propofol 1,000 mg/ IV Solution 100 mls @ 7.503 mls/hr 10/06/23 12:15 10/06/23 13:22 IV 40 mcg/kg/min .[id number] MISAEL 20.009 mls/hr Titration Protocol 15 MCG/KG/MIN Heparin Sodium (Porcine) 10, 1,001 mls @ 999 mls/hr 10/06/23 07:00 000 unit/ Sodium Chloride IRRIGATION 10/06/23 23:00 ONCE PRN INTRA-OP Heparin Sodium (Porcine) 2,500 250.5 mls @ 250 mls/hr 10/06/23 07:00 unit/ Sodium Chloride IRRIGATION 10/06/23 23:00 ONCE PRN INTRA-OP Sodium Chloride 1,000 ml/ IV 1,000 mls @ 83.37 mls/hr 10/06/23 13:15 Solution IV .Q12H MISAEL 1 ML/KG/HR Naloxone HCl 0.2 mg 10/06/23 11:31 Naloxone 0.4 Mg/Ml 1 Ml Vial IV Q2M PRN Opioid Reversal Nitroglycerin 0.4 mg 10/06/23 13:08 Nitroglycerin Sl Tabs 0.4 Mg Tab SUBLINGUAL Q5M PRN Chest Pain Pantoprazole Sodium 40 mg 10/06/23 11:45 10/06/23 12:57 Pantoprazole 40 Mg/10 Ml Vial IVP 40 mg DAILY MISAEL Administration Intake and Output 10/05/23 10/06/23 10/06/23 22:59 06:59 14:59 Intake Total 16.633 Output Total 3 Balance 13.633 Intake: Intake, IV Titration 16.633 Amount propofoL 1,000 mg In 16.633 Empty Bag 1 bag @ 15 MCG/ KG/MIN 7.503 mls/hr IV . [id number] [facility] Rx#:[id number] Output: Urine 3 Uretheral (Vasques) 3 Other: Weight 83.37 kg Patient Weight 10/07/23 06:59 Weight 83.37 kg 10/06/23 09:50 10/06/23 09:50
[2023-10-06 14:52] LABS: Glucose,Whole Blood 126 mg/dL (70-110)
[2023-10-06] MEDS: SODIUM CHLORIDE 0.9% 1,000 ML in EMPTY BAG 1 BAG IV SCH (15:20)
--- NOTE | 2023-10-06 15:25 | P.CNPUL ---
History of Present Illness Consult date: 10/06/23 Requesting physician: Albert Cerna Reason for consult: other Chief complaint: Cardiopulmonary arrest History of present illness: Pulmonary consult dated 10/06/2023. Female who presented to the emergency department, on October 06, and cardiopulmonary arrest. The patient apparently has been complaining of chest pain for the last couple of days. She was seen in the emergency room for chest pain, but decided to leave AGAINST MEDICAL ADVICE. I believe that was on October 02. She apparently returned to the emergency room the following day, for some blood work. The patient had a cardiopulmonary arrest, lasting for about 15 minutes, with ongoing resuscitation. She had a ventricular fibrillation arrest according to EMS. She received 3 different defibrillations, 3 rounds of epinephrine, 300 mg of amiodarone, followed by another 150 mg of amiodarone. The patient arrived to the ER with a Jarret tube in place. It was converted to a standard endotracheal tube. I was notified about the patient from the ER physician. The patient apparently has a history of COPD, fibromyalgia, GERD, hy perlipidemia, hypertension, DJD, seizure disorder, cervical cancer, and chronic tobacco and alcohol use. The patient was taken to the catheterization laboratory, from the ICU, and a stent was placed in the left anterior descending coronary artery. Her lactic acid was 10.3. She's currently on propofol at 50 mcg/kg/m. She's getting saline at 100 mL an hour. She was on norepinephrine but that has been turned off. Ventilator settings include the volume assist control, rate 16, tidal volume 450, FiO2 50%, and PEEP of 5. Blood gases on the 100% show pO2 363, pCO2 42, and a pH is 7.18. White count 19.1, hemoglobin 14.4, hematocrit 44.6, and platelet count 279,000. Sodium 139, potassium 4.6, chlorides 104, CO2 10, anion gap 25, BUN 20, and creatinine 1.12. Glucose 126. Lactic acid is 10.3. Troponin is 0.659. Drug screen was positive for oxycodone, and try cyclic antidepressants. Brain CT was negative for anything acute. Chest x-ray showed no sizable pneumothorax. A right central line was noted. Review of Systems REVIEW OF SYSTEMS: CONSTITUTIONAL: [Negative.] NEUROLOGIC: [ Negative.] HEENT: [ Negative.] CARDIAC: Chest pain. PULMONARY: [Negative.] GI: [Negative.] : [Negative.] RHEUMATOLOGIC: [ Negative.] IMMUNOLOGIC: [ Negative.] ENDOCRINE: [Negative. ] DERMATOLOGIC: [Negative.] Past Medical History Past Medical History: Cancer, COPD, Fibromyalgia, GERD/Reflux, Hyperlipidemia, Hypertension, Osteoarthritis (OA), Pneumonia, Seizure Disorder, Thyroid Disorder Additional Past Medical History / Comment(s): LAST SEIZURE about 1 yr ago. needs to get back on tegretol .H-pylori, arthritis in multiple joints, compression fracture L1 with chronic pain, , hypothyroid, , past elevated liver function tests, L breast "lump" being monitored, she has had blurry vision tri focals./bed wetting. weak bladder Cervical CA with hysterectomy. Adrenal insufficency. heartburn worse, ? reoccurance of hiatal hernia. seasonal allergies. History of Any Multi-Drug Resistant Organisms: MRSA Date of last positivie culture/infection: 05/17/23 MDRO Source:: Right Foot Past Surgical History: Adenoidectomy, Breast Surgery, Cholecystectomy, Hysterectomy, Orthopedic Surgery, Tonsillectomy, Tubal Ligation Additional Past Surgical History / Comment(s): Bilateral breast implants, bilateral oophorectomy d/t cysts, EGDs, EGD with dilation, susu fundoplication with revision, R elbow surgery for MRSA infection, R rotator cuff repair, low back surgery (cemented), bilateral hip surgery for tendon/muscle repairs/screws in place. Cervical fusion C4,5,6,7 Past Anesthesia/Blood Transfusion Reactions: Family History of Problems w/ Anesthesia Additional Past Anesthesia/Blood Transfusion Reaction / Comment(s): MOTHER= A- FIB WITH ANESTHESIA. Past Psychological History: Anxiety, Bipolar, Depression Smoking Status: Current every day smoker - Past Family History Father Family Medical History: Eye Disorder, Hypertension Additional Family Medical History / Comment(s): Father committed suicide at the age of 58yrs. He had glaucoma Brother(s) Family Medical History: No Reported History Additional Family Medical History / Comment(s): She has one brother that is a recovered alcoholic with no other major medical problems. Sister(s) Additional Family Medical History / Comment(s): Patient has one sister that suffers from depression and anxiety Mother Family Medical History: Cancer, Dementia, Diabetes Mellitus, Deep Vein Thrombosis (DVT), Eye Disorder, Hypertension Additional Family Medical History / Comment(s): Corneal transplant, breast cancer Medications and Allergies Home Medications Medication Instructions Recorded Confirmed Type oxyCODONE-APAP 10-325MG [Percocet 1 tab PO TID PRN 07/21/20 10/06/23 History 10-325 mg] Cyclobenzaprine [Flexeril] 10 mg PO TID PRN #15 tab 07/23/22 10/06/23 Rx diphenhydrAMINE HCL [Benadryl 25 mg PO TID 09/05/23 10/06/23 History Allergy] Melatonin 5 mg PO HS 10/02/23 10/06/23 History Naloxegol Oxalate [Movantik] 25 mg PO DAILY PRN 10/02/23 10/06/23 History Nitrofurantoin Monohyd/M-Cryst 100 mg PO BID 10/02/23 10/06/23 History [Macrobid] Omeprazole [PriLOSEC] 40 mg PO DAILY 10/02/23 10/06/23 History Pantoprazole Sodium [Protonix] 40 mg PO DAILY 10/02/23 10/06/23 History lisinopriL [Zestril] 5 mg PO BID 10/02/23 10/06/23 History Allergies Allergy/AdvReac Type Severity Reaction Status Date / Time Penicillins Allergy Severe Anaphylaxis Verified 10/06/23 11:01 Iodinated Contrast Media Allergy Unknown Rash/Hives Verified 10/06/23 11:01 [Iodinated Contrast Media - IV Dye] egg yolk Allergy Nausea Verified 10/06/23 11:01 mustard Allergy Nausea Verified 10/06/23 11:01 Sulfa (Sulfonamide Allergy Rash/Hives Verified 10/06/23 11:01 Antibiotics) sulfamethoxazole Allergy Rash/Hives Verified 10/06/23 11:01 [From Bactrim] trimethoprim [From Bactrim] Allergy Rash/Hives Verified 10/06/23 11:01 Physical Exam Osteopathic Statement: *. No significant issues noted on an osteopathic structural exam other than those noted in the History and Physical/Consult. Vitals: Vital Signs Temp Pulse Resp BP Pulse Ox FiO2 10/06/23 15:10 89 16 147/96 100 60 10/06/23 15:08 50 10/06/23 15:00 95 16 230/122 100 10/06/23 13:13 97.5 F L 97 16 116/89 100 10/06/23 13:00 90 18 104/78 100 10/06/23 12:45 96 16 103/79 100 10/06/23 12:44 50 10/06/23 12:30 80 18 113/50 100 10/06/23 12:00 82 16 103/67 100 10/06/23 11:35 86 16 93/61 100 10/06/23 10:55 87 16 77/47 100 10/06/23 10:50 91 16 76/46 100 10/06/23 10:45 93 16 84/57 100 10/06/23 10:40 92 16 78/52 100 10/06/23 10:33 96 16 87/57 100 10/06/23 10:25 97 16 79/48 100 10/06/23 10:20 98 16 77/47 100 10/06/23 10:19 50 10/06/23 10:15 100 16 79/46 100 10/06/23 10:12 103 H 11 L 76/47 100 10/06/23 10:05 106 H 16 90/56 100 10/06/23 09:58 100 10/06/23 09:45 102 H 16 90/60 100 10/06/23 09:34 113 H 20 97/68 100 Intake and Output 10/06/23 10/06/23 10/06/23 06:59 14:59 22:59 Intake Total 66.633 75 Output Total 3 300 Balance 63.633 -225 Intake: IV 50 75 Sodium Chloride 0.9% 1, 75 000 ml @ 75 mls/hr IV . [id number] MISAEL Rx#:[id number] Intake, IV Titration 16.633 Amount propofoL 1,000 mg In 16.633 Empty Bag 1 bag @ 15 MCG/ KG/MIN 7.503 mls/hr IV . [id number] MISAEL Rx#:[id number] Output: Urine 3 300 Uretheral ([place]) 3 Other: Weight 83.37 kg ABP, PAP, CO, CI - Last 8 Hours Arterial Blood Pressure 122/80 No acute distress, sedated, with an orally placed endotracheal tube and NG tube. HEENT examination is grossly unremarkable. Neck supple. Full range of motion. No adenopathy thyromegaly or neck vein distention. Cardiovascular examination reveals regular rhythm rate. S1-S2 normal. No S3 or S4. No discernible murmur noted. Heart rate 89 bpm. Lungs reveal scattered rhonchi. No wheezes or crackles. Breath sounds equal bilaterally. Saturations are 100%. Abdomen soft, without bowel sounds. No masses or tenderness. Extremities are intact. No cyanosis clubbing or edema. Skin is without rash or lesion. Neurologic examination cannot be evaluated at this time. Results - Laboratory Findings CBC and BMP: 10/06/23 09:50 10/06/23 09:50 ABG ABG pH 7.18 (7.35-7.45) L* 10/06/23 10:08 ABG pCO2 42 mmHg (35-45) 10/06/23 10:08 ABG pO2 363 mmHg (83-108) H 10/06/23 10:08 ABG O2 Saturation 99.5 % (94-97) H 10/06/23 10:08 PT/INR, D-dimer PT 11.0 sec (10.0-12.5) 10/06/23 09:50 INR 1.0 (<1.2) 10/06/23 09:50 Abnormal lab findings: Abnormal Labs 10/06/23 10/06/23 10/06/23 09:50 09:50 09:50 WBC 19.1 H MCV 107.8 H Neutrophils # (Manual) 10.30 H Lymphocytes # (Manual) 7.45 H Monocytes # (Manual) 1.15 H Metamyelocytes # (Man) 0.19 H APTT 20.2 L ABG pH ABG pO2 ABG HCO3 ABG Total CO2 ABG O2 Saturation Carbon Dioxide BUN Creatinine Glucose POC Glucose (mg/dL) Plasma Lactic Acid Matthew AST ALT Troponin I Ur Oxycodone Screen Detected H U Tricyclic Antidepress Detected H 10/06/23 10/06/23 10/06/23 09:50 09:50 09:50 WBC MCV Neutrophils # (Manual) Lymphocytes # (Manual) Monocytes # (Manual) Metamyelocytes # (Man) APTT ABG pH ABG pO2 ABG HCO3 ABG Total CO2 ABG O2 Saturation Carbon Dioxide 10 L BUN 20 H Creatinine 1.12 H Glucose 218 H POC Glucose (mg/dL) Plasma Lactic Acid Matthew 10.3 H* AST 121 H ALT 90 H Troponin I 0.659 H* Ur Oxycodone Screen U Tricyclic Antidepress 10/06/23 10/06/23 10/06/23 09:51 10:08 14:50 WBC MCV Neutrophils # (Manual) Lymphocytes # (Manual) Monocytes # (Manual) Metamyelocytes # (Man) APTT ABG pH 7.18 L* ABG pO2 363 H ABG HCO3 16 L ABG Total CO2 17 L ABG O2 Saturation 99.5 H Carbon Dioxide BUN Creatinine Glucose POC Glucose (mg/dL) 214 H 126 H Plasma Lactic Acid Matthew AST ALT Troponin I Ur Oxycodone Screen U Tricyclic Antidepress - Diagnostic Findings Chest x-ray: image reviewed Assessment and Plan Assessment: [id number] cardiopulmonary arrest, with cardiopulmonary resuscitation and return of spontaneous circulation, after 14 or 15 minutes. The patient had a ventricular fibrillation arrest. Status post intubation, and mechanical ventilation, for cardiopulmonary arrest. Anion gap metabolic acidosis, secondary to lactic acidemia. Status post placement of a stent, and the LAD, 10/06/2023. History of COPD from chronic tobacco use. History of hypertension. History of hyperlipidemia. History of gastroesophageal reflux disease. History of fibromyalgia. History of seizure disorder. History of cervical cancer. History of alcohol abuse. Plan: Plan dated 10/06/2023. The patient was seen in the intensive care unit. He left radial arterial line was placed. A central line was placed by the ER physician. Labs, x-rays, and medications are reviewed. The vent bundle orders were implemented as were the ICU admission orders. Additional recommendations and suggestions are forthcoming. Labs, x-rays, and blood gases be done in the morning. Additional recommendations and suggestions are forthcoming. We will continue to follow make recommendations along the way. Prognosis is guarded, and the patient may have sustained anoxic brain injury. Time with Patient: Greater than 30
[2023-10-06 15:56] LABS: Basophils % (A) 0 %; Eosinophils % (A) 0 %; HGB 13.9 gm/dL (11.4-16.0); Lymphocytes # (A) 0.5 k/uL (1.0-4.8); Lymphocytes % (A) 6 %; MCH 35.1 pg (25.0-35.0); MCHC 33.2 g/dL (31.0-37.0); MCV 105.8 fL (80.0-100.0); Macrocytosis Moderate; Mean Platelet Volume 7.8; Monocytes # (A) 0.3 k/uL (0-1.0); Monocytes % (A) 4 %; Neutrophils # (A) 8.5 k/uL (1.3-7.7); Neutrophils % (A) 90 %; Platelet Count 219 k/uL (150-450); RBC 3.97 m/uL (3.80-5.40); RDW 13.5 % (11.5-15.5); WBC 9.5 k/uL (3.8-10.6)
[2023-10-06 16:09] LABS: African American GFR (CKD) >90 (>60 ml/min/1.73 sqM); Anion Gap 13 mmol/L; Blood Urea Nitrogen 22 mg/dL (7-17); Calcium 8.4 mg/dL (8.4-10.2); Carbon Dioxide 15 mmol/L (22-30); Chloride 111 mmol/L (98-107); Glucose 138 mg/dL (74-99); Magnesium 1.9 mg/dL (1.6-2.3); Non-African American GFR(CKD) 89 (>60 ml/min/1.73 sqM); Potassium 4.1 mmol/L (3.5-5.1); Sodium 139 mmol/L (137-145)
[2023-10-06] MEDS: HYDROCORTISONE SUCCINATE 100 MG/2 ML VIAL IV SCH ×2 (16:23→21:15)
[2023-10-06] MEDS: diphenhydrAMINE 25 MG CAP PO SCH ×2 (16:23→21:15)
[2023-10-06] MEDS ORDERED: hydrALAZINE HCL 20 MG/ML 1 ML VIAL IVP PRN (17:59)
--- NOTE | 2023-10-06 18:14 | P.PCN ---
Date of Procedure: 10/06/23 Operative Findings: CARDIAC CATHETERIZATION AND PERCUTANEOUS CORONARY INTERVENTION PERFORMING PHYSICIAN: Arian Hickey MD, [facility] PROCEDURE PERFORMED: 1. Selective right and left coronary angiogram 2. Successful stenting of proximal LAD using 3.0 x 18 mm Xience MARSHA with an excellent angiographic results 3. Adjunctive use of intracardiac imaging 4. Ultrasound guided access of the right radial artery INDICATION: Acute non-ST elevation myocardial infarction complicated by cardiac arrest COMPLICATION: None APPROACH: Right radial artery LEVEL OF SEDATION: Moderate with the sedation time off 45 minutes PROCEDURE DESCRIPTION: After obtaining an informed consent the patient was brought to the cardiac medical laboratory specialist. The right radial artery was cannulated using puncture technique under ultrasound guidance and microtia wire passed easily and I placed a 6-Canadian at the right radial artery. I gave the patient milligram of verapamil intra- arterial. Subsequently I did selective right and left cornea angiogram using JR4 and JL 3.5 catheters. After that I did intervene on the LAD. The procedure was completed was no complication SELECTIVE CORONARY ANGIOGRAM: The right coronary artery: Large-caliber vessel and a dominant vessel with intermediate lesion involving the midportion Left main: Is angiographically normal. Bifurcates into an LCx and LAD The left circumflex: Large caliber vessel and codominant vessel. The LCx proximally gives rises into an OM1 which has intermediate lesion appeared to be in the range of 50-60%. The circumflex distally appears to be normal and bifurcates into PDA and PLV branches both appeared to be angiographically normal The left anterior descending artery: Large caliber vessel. The proximal LAD has long tubular lesion appears to be in the range of 99.9%. The mid and distal LAD appears to be angiographically normal. PCI OF THE LAD: Anticoagulation was initiated using heparin with continuous ACT monitoring. Subsequently I did engage the left main using a JL 3.5 guiding catheter. I did wire the LAD using a run-through wire. Subsequently I did initially intravascular imaging and that revealed a soft a plaque was possible large thrombus burden involving the proximal LAD with a diameter around 2.5 mm. I did balloon angioplasty using 2.5 x 15 mm balloon. After that I deployed 2.5 x 18 mm stent where the stent was positioned under fluoroscopy guidance and deployed under fluoroscopy guidance. Intravascular ultrasound again performed and showed that the stent was not well expanded. I decided to post dilated using 3.0 mm noncompliant balloon. Final angiogram showed excellent angiographic results was GARETT-3 flow and the procedure was completed was no complication. CONCLUSION: Critical disease involving the proximal LAD. I did perform successful stenting of the LAD as described above Intermediate disease involving the mid RCA and first obtuse marginal branch of the LCx POSTPROCEDURE MANAGEMENT: 1. Dual antiplatelet therapy using aspirin and Plavix for 12 month 2. Aggressive cholesterol control 3. Follow-up with the patient
--- NOTE | 2023-10-06 19:41 | PCN ---
PROCEDURE NOTE PROCEDURE PERFORMED: Left radial art line. PREOPERATIVE DIAGNOSIS: Frequent blood draws, blood gas monitoring, and hypotension. POSTOPERATIVE DIAGNOSIS: Frequent blood draws, blood gas monitoring, and hypotension. DESCRIPTION OF PROCEDURE: There was informed consent and universal timeout. The operators were Dr. Solitario and Dr. Dalton. A time-out was completed verifying correct patient, procedure, site, positioning, and implant(s) or special equipment if applicable. Goran's test was performed to ensure adequate perfusion. The patient's left wrist was prepped and draped in sterile fashion. 1% Lidocaine was used to anesthetize the area. An 18G Arrow arterial line was introduced into the radial artery. The catheter was threaded over the guide wire and the needle was removed with appropriate pulsatile blood return. Blood loss was minimal. The catheter was then sutured in place to the skin and a sterile dressing applied. Perfusion to the extremity distal to the point of catheter insertion was checked and found to be adequate. You can use the template we used the left radial artery. There was good blood return and waveform. The patient tolerated the procedure well. The catheter was sutured in place. A sterile dressing was applied by the nurse. There was no immediate complication. A repeat blood gas will be drawn. MMODL / IJN: [id number] /
[2023-10-06] MEDS: MELATONIN 5 MG TABLET PO SCH (20:05)
[2023-10-06] MEDS: lisinopriL 5 MG TAB PO SCH (20:48)
[2023-10-06] MEDS: oxyCODONE-APAP 10-325MG 1 EACH TAB PO PRN (20:48)
[2023-10-06] MEDS: METOPROLOL TARTRATE 25 MG TAB PO SCH (20:48)
[2023-10-06] MEDS ORDERED: HEPARIN SODIUM,PORCINE 5,000 UNIT/ML 1 ML VIAL SQ SCH (21:00)
[2023-10-06] MEDS ORDERED: METOPROLOL TARTRATE 12.5 MG TAB PO SCH (21:00)
[2023-10-07] MEDS: SODIUM CHLORIDE 0.9% 1,000 ML in EMPTY BAG 1 BAG IV SCH ×2 (00:06→14:12)
[2023-10-07 01:43] LABS: Glucose,Whole Blood 132 mg/dL (70-110)
[2023-10-07] MEDS ORDERED: fentaNYL (PF). 1,000 MCG in SODIUM CHLORIDE 0.9% 80 ML IV SCH (02:45)
[2023-10-07 05:28] LABS: Basophils % (A) 0 %; Eosinophils % (A) 0 %; HCT 40.5 % (34.0-46.0); HGB 13.1 gm/dL (11.4-16.0); Hypochromasia Slight; Lymphocytes # (A) 0.7 k/uL (1.0-4.8); Lymphocytes % (A) 7 %; MCH 34.7 pg (25.0-35.0); MCHC 32.4 g/dL (31.0-37.0); MCV 107.3 fL (80.0-100.0); Macrocytosis Moderate; Monocytes # (A) 0.4 k/uL (0-1.0); Monocytes % (A) 3 %; Neutrophils # (A) 9.6 k/uL (1.3-7.7); Neutrophils % (A) 90 %; Platelet Count 201 k/uL (150-450); RBC 3.77 m/uL (3.80-5.40); RDW 13.7 % (11.5-15.5); WBC 10.8 k/uL (3.8-10.6)
[2023-10-07 05:33] LABS: INR 0.9 (<1.2)
[2023-10-07 05:47] LABS: Glucose,Whole Blood 106 mg/dL (70-110)
[2023-10-07 05:49] LABS: African American GFR (CKD) >90 (>60 ml/min/1.73 sqM); Anion Gap 12 mmol/L; Blood Urea Nitrogen 16 mg/dL (7-17); Carbon Dioxide 17 mmol/L (22-30); Chloride 110 mmol/L (98-107); Glucose 105 mg/dL (74-99); Non-African American GFR(CKD) 88 (>60 ml/min/1.73 sqM); Potassium 4.4 mmol/L (3.5-5.1); Sodium 139 mmol/L (137-145)
[2023-10-07 06:26] LABS: ABG Base Excess -5.8 mmol/L; ABG HCO3 19 mmol/L (21-25); ABG Oxygen Saturation 97.5 % (94-97); ABG PCO2 33 mmHg (35-45); ABG PH 7.38 (7.35-7.45); ABG PO2 91 mmHg (83-108); ABG TCO2 21 mmol/L (19-24); Allen Test Performed? Yes
[2023-10-07] MEDS: PANTOPRAZOLE 40 MG/10 ML VIAL IVP SCH (08:51)
[2023-10-07] MEDS: diphenhydrAMINE 25 MG CAP PO SCH ×3 (08:51→21:00)
[2023-10-07] MEDS: HYDROCORTISONE SUCCINATE 100 MG/2 ML VIAL IV SCH ×3 (08:51→21:01)
[2023-10-07] MEDS: ASPIRIN 81 MG PO SCH (08:51)
[2023-10-07] MEDS: CLOPIDOGREL 75 MG TAB PO SCH (08:51)
[2023-10-07] MEDS: lisinopriL 5 MG TAB PO SCH ×2 (08:51→21:01)
[2023-10-07] MEDS: METOPROLOL TARTRATE 25 MG TAB PO SCH ×2 (08:51→21:01)
[2023-10-07] MEDS ORDERED: CHLORHEXIDINE GLUCONATE 15 ML CUP MUCOUS MEM SCH (09:00)
--- NOTE | 2023-10-07 09:06 | P.CRDCN ---
History of Present Illness Consult date: 10/06/23 Chief complaint: Cardiac arrest History of present illness: The patient is a 51-year-old female patient with a past medical history significant for history of alcohol use and history of drug use and multiple comorbid conditions was brought to the emergency department from home by ambulance after she had a witnessed cardiac arrest. The patient apparently had a cardiac arrest was ventricular fibrillation and she underwent shock multiple times. She was brought to normal sinus mechanism. In the ER she underwent further investigation including an EKG showing some ischemic ST changes anteriorly concerning for severe underlying coronary artery disease but at the same time the patient was intubated and she was on mechanical ventilation and the history was taken from the chart and from the ER physician. The patient underwent a heart catheterization after computed tomography scan of the brain showed no evidence of intracranial bleeding. A heart catheterization revealed critical disease involving the left anterior descending artery and intermediate disease involving the right coronary artery and left circumflex coronary artery. She underwent successful stenting of the left anterior descending artery with a good angiographic results with restoring GARETT-3 flow. The echo is still pending. The patient will be admitted to the intensive care unit. 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 Please note that she underwent a workup including urine drug screen and that came in to be normal. The patient presented to the emergency room according to the ER doctor was chest discomfort a few days before and that she was advised to stay but she refused and she decided to go home. That was informed to me by the ER physician yesterday. 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 needs to get back on tegretol .H-pylori, arthritis in multiple joints, compression fracture L1 with chronic pain, , hypothyroid, , past elevated liver function tests, L breast "lump" being monitored, she has had blurry vision tri focals./bed wetting. weak bladder Cervical CA with hysterectomy. Adrenal insufficency. heartburn worse, ? reoccurance of hiatal hernia. seasonal allergies. History of Any Multi-Drug Resistant Organisms: MRSA Date of last positivie culture/infection: 05/17/23 MDRO Source:: Right Foot Past Surgical History: Adenoidectomy, Breast Surgery, Cholecystectomy, Hysterectomy, Orthopedic Surgery, Tonsillectomy, Tubal Ligation Additional Past Surgical History / Comment(s): Bilateral breast implants, bilateral oophorectomy d/t cysts, EGDs, EGD with dilation, susu fundoplication with revision, R elbow surgery for MRSA infection, R rotator cuff repair, low back surgery (cemented), bilateral hip surgery for tendon/muscle repairs/screws in place. Cervical fusion C4,5,6,7 Past Anesthesia/Blood Transfusion Reactions: Family History of Problems w/ Anesthesia Additional Past Anesthesia/Blood Transfusion Reaction / Comment(s): MOTHER= A- FIB WITH ANESTHESIA. Past Psychological History: Anxiety, Bipolar, Depression Smoking Status: Current every day smoker - Past Family History Father Family Medical History: Eye Disorder, Hypertension Additional Family Medical History / Comment(s): Father committed suicide at the age of 58yrs. He had glaucoma Brother(s) Family Medical History: No Reported History Additional Family Medical History / Comment(s): She has one brother that is a recovered alcoholic with no other major medical problems. Sister(s) Additional Family Medical History / Comment(s): Patient has one sister that suffers from depression and anxiety Mother Family Medical History: Cancer, Dementia, Diabetes Mellitus, Deep Vein Thrombosis (DVT), Eye Disorder, Hypertension Additional Family Medical History / Comment(s): Corneal transplant, breast cancer Medications and Allergies Home Medications Medication Instructions Recorded Confirmed Type oxyCODONE-APAP 10-325MG [Percocet 1 tab PO TID PRN 07/21/20 10/06/23 History 10-325 mg] Cyclobenzaprine [Flexeril] 10 mg PO TID PRN #15 tab 07/23/22 10/06/23 Rx diphenhydrAMINE HCL [Benadryl 25 mg PO TID 09/05/23 10/06/23 History Allergy] Melatonin 5 mg PO HS 10/02/23 10/06/23 History Naloxegol Oxalate [Movantik] 25 mg PO DAILY PRN 10/02/23 10/06/23 History Nitrofurantoin Monohyd/M-Cryst 100 mg PO BID 10/02/23 10/06/23 History [Macrobid] Omeprazole [PriLOSEC] 40 mg PO DAILY 10/02/23 10/06/23 History Pantoprazole Sodium [Protonix] 40 mg PO DAILY 10/02/23 10/06/23 History lisinopriL [Zestril] 5 mg PO BID 10/02/23 10/06/23 History Allergies Allergy/AdvReac Type Severity Reaction Status Date / Time Penicillins Allergy Severe Anaphylaxis Verified 10/06/23 11:01 Iodinated Contrast Media Allergy Unknown Rash/Hives Verified 10/06/23 11:01 [Iodinated Contrast Media - IV Dye] egg yolk Allergy Nausea Verified 10/06/23 11:01 mustard Allergy Nausea Verified 10/06/23 11:01 Sulfa (Sulfonamide Allergy Rash/Hives Verified 10/06/23 11:01 Antibiotics) sulfamethoxazole Allergy Rash/Hives Verified 10/06/23 11:01 [From Bactrim] trimethoprim [From Bactrim] Allergy Rash/Hives Verified 10/06/23 11:01 Physical Exam Vitals: Vital Signs Temp Pulse Pulse Resp BP BP Pulse Ox 10/07/23 08:05 10/07/23 08:00 10/07/23 07:00 82 18 103/75 100 10/07/23 06:40 93/56 10/07/23 06:35 88/49 10/07/23 06:30 79 16 104/64 97 10/07/23 06:00 79 16 112/84 100 10/07/23 05:30 84 16 102/65 97 10/07/23 05:00 81 16 123/86 100 10/07/23 04:30 82 16 127/76 100 10/07/23 04:00 98.3 F 80 16 100 10/07/23 03:30 77 16 100 10/07/23 03:03 10/07/23 03:00 81 19 100 10/07/23 02:30 80 18 100 10/07/23 02:08 100.4 F H 82 152/70 100 10/07/23 02:00 100.4 F H 78 17 100 10/07/23 01:30 75 19 100 10/07/23 01:00 80 17 99 10/07/23 00:30 79 16 99 10/07/23 00:28 80 16 99 10/07/23 00:10 10/07/23 00:00 100.3 F H 80 19 100 10/06/23 23:30 81 18 99 10/06/23 23:00 88 18 99 10/06/23 22:30 90 20 98 10/06/23 22:00 87 25 H 99 10/06/23 21:30 88 16 100 10/06/23 21:00 97 22 100 10/06/23 20:30 89 20 125/80 100 10/06/23 20:12 10/06/23 20:00 99.1 F 96 19 100 10/06/23 19:30 90 19 100 10/06/23 19:00 90 20 100 10/06/23 18:30 96 18 100 10/06/23 18:00 86 21 146/100 100 10/06/23 17:40 88 14 100 10/06/23 17:20 78 16 100 10/06/23 17:00 78 16 100 10/06/23 16:40 80 16 100 10/06/23 16:20 75 16 100 10/06/23 16:00 79 16 100 10/06/23 15:40 78 16 134/96 100 10/06/23 15:20 81 16 134/96 100 10/06/23 15:10 89 16 147/96 100 10/06/23 15:08 10/06/23 15:00 95 16 230/122 100 10/06/23 13:13 97.5 F L 97 16 116/89 100 10/06/23 13:00 90 18 104/78 100 10/06/23 12:45 96 16 103/79 100 10/06/23 12:44 10/06/23 12:30 80 18 113/50 100 10/06/23 12:00 82 16 103/67 100 10/06/23 11:35 86 16 93/61 100 10/06/23 10:55 87 16 77/47 100 10/06/23 10:50 91 16 76/46 100 10/06/23 10:45 93 16 84/57 100 10/06/23 10:40 92 16 78/52 100 10/06/23 10:33 96 16 87/57 100 10/06/23 10:25 97 16 79/48 100 10/06/23 10:20 98 16 77/47 100 10/06/23 10:19 10/06/23 10:15 100 16 79/46 100 10/06/23 10:12 103 H 11 L 76/47 100 10/06/23 10:05 106 H 16 90/56 100 10/06/23 09:58 10/06/23 09:45 102 H 16 90/60 100 10/06/23 09:34 113 H 20 97/68 100 FiO2 10/07/23 08:05 40 10/07/23 08:00 40 10/07/23 07:00 10/07/23 06:40 10/07/23 06:35 10/07/23 06:30 10/07/23 06:00 10/07/23 05:30 10/07/23 05:00 10/07/23 04:30 10/07/23 04:00 40 10/07/23 03:30 10/07/23 03:03 40 10/07/23 03:00 40 10/07/23 02:30 10/07/23 02:08 40 10/07/23 02:00 40 10/07/23 01:30 10/07/23 01:00 10/07/23 00:30 10/07/23 00:28 10/07/23 00:10 40 10/07/23 00:00 40 10/06/23 23:30 10/06/23 23:00 40 10/06/23 22:30 40 10/06/23 22:00 40 10/06/23 21:30 10/06/23 21:00 40 10/06/23 20:30 10/06/23 20:12 40 10/06/23 20:00 50 10/06/23 19:30 10/06/23 19:00 10/06/23 18:30 10/06/23 18:00 50 10/06/23 17:40 10/06/23 17:20 10/06/23 17:00 50 10/06/23 16:40 10/06/23 16:20 10/06/23 16:00 50 10/06/23 15:40 10/06/23 15:20 10/06/23 15:10 60 10/06/23 15:08 50 10/06/23 15:00 10/06/23 13:13 10/06/23 13:00 10/06/23 12:45 10/06/23 12:44 50 10/06/23 12:30 10/06/23 12:00 10/06/23 11:35 10/06/23 10:55 10/06/23 10:50 10/06/23 10:45 10/06/23 10:40 10/06/23 10:33 10/06/23 10:25 10/06/23 10:20 10/06/23 10:19 50 10/06/23 10:15 10/06/23 10:12 10/06/23 10:05 10/06/23 09:58 100 10/06/23 09:45 10/06/23 09:34 Intake and Output 10/06/23 10/07/23 10/07/23 22:59 06:59 14:59 Intake Total 873.367 917.726 230.975 Output Total 755 605 250 Balance 118.367 312.726 -19.025 Intake: IV 630 680 170 0.9% NS 30 80 20 Sodium Chloride 0.9% 1, 600 600 150 000 ml @ 75 mls/hr IV . [id number] [facility] Rx#:[id number] Intake, IV Titration 183.367 237.726 60.975 Amount fentaNYL (PF). 1,000 mcg 22.791 In Sodium Chloride 0.9% 80 ml @ 0.5 MCG/KG/HR 4. 169 mls/hr IV .Q24H [facility] Rx#:[id number] propofoL 1,000 mg In 183.367 237.726 38.184 Empty Bag 1 bag @ 15 MCG/ KG/MIN 7.503 mls/hr IV . [id number] [facility] Rx#:[id number] Other 60 Output: Urine 755 605 250 Other: Voiding Method Indwelling Catheter Indwelling Catheter Weight 83.37 kg 79.9 kg ABP, PAP, CO, CI - Last 8 Hours Arterial Blood Pressure 113/74 Arterial Blood Pressure 133/66 Arterial Blood Pressure 121/96 Arterial Blood Pressure 142/77 Arterial Blood Pressure 125/96 Arterial Blood Pressure 152/70 Arterial Blood Pressure 154/76 Arterial Blood Pressure 157/79 Arterial Blood Pressure 134/66 Arterial Blood Pressure 125/62 Results 10/07/23 04:42 10/07/23 04:42 Cardiac Enzymes 10/06/23 10/06/23 Range/Units 09:50 09:50 AST 121 H (14-36) U/L Troponin I 0.659 H* (0.000-0.034) ng/mL Coagulation 10/06/23 10/06/23 10/07/23 Range/Units 09:50 15:19 04:42 PT 11.0 10.0 (10.0-12.5) sec APTT 20.2 L 34.7 H (22.0-30.0) sec CBC 10/06/23 10/06/23 10/07/23 Range/Units 09:50 15:19 04:42 WBC 19.1 H 9.5 10.8 H (3.8-10.6) k/uL RBC 4.14 3.97 3.77 L (3.80-5.40) m/uL Hgb 14.4 13.9 13.1 (11.4-16.0) gm/dL Hct 44.6 42.0 40.5 (34.0-46.0) % Plt Count 279 219 201 (150-450) k/uL Comprehensive Metabolic Panel 10/06/23 10/06/23 10/07/23 Range/Units 09:50 14:52 04:42 Sodium 139 139 139 (137-145) mmol/L Potassium 4.6 4.1 4.4 (3.5-5.1) mmol/L Chloride 104 111 H 110 H (98-107) mmol/L Carbon Dioxide 10 L 15 L 17 L (22-30) mmol/L BUN 20 H 22 H 16 (7-17) mg/dL Creatinine 1.12 H 0.77 0.78 (0.52-1.04) mg/dL Glucose 218 H 138 H 105 H (74-99) mg/dL Calcium 9.1 8.4 9.0 (8.4-10.2) mg/dL AST 121 H (14-36) U/L ALT 90 H (4-34) U/L Alkaline Phosphatase 109 (38-126) U/L Total Protein 7.1 (6.3-8.2) g/dL Albumin 4.3 (3.5-5.0) g/dL Current Medications Generic Name Dose Route Start Last Admin Trade Name Freq PRN Reason Stop Dose Admin Al Hydroxide/Mg Hydroxide 30 ml 10/06/23 14:23 Mag Hydrox/Al Hydrox/Simeth 30 Ml Cup PO Q4HR PRN Heartburn Aspirin 81 mg 10/07/23 09:00 10/07/23 08:51 Aspirin 81 Mg PO 81 mg DAILY [facility] Administration Atorvastatin Calcium 80 mg 10/07/23 21:00 Atorvastatin 80 Mg Tab PO HS [facility] Atropine Sulfate 0.5 mg 10/06/23 14:23 Atropine Sulfate 0.1 Mg/Ml 10ml Syringe IV ONCE PRN Symptomatic Bradycardia Chlorhexidine Gluconate 15 ml 10/07/23 09:00 10/07/23 08:51 Chlorhexidine Gluconate 15 Ml Cup MUCOUS MEM 15 ml BID [facility]EL Administration Clopidogrel Bisulfate 75 mg 10/07/23 09:00 10/07/23 08:51 Clopidogrel 75 Mg Tab PO 75 mg DAILY [facility]EL Administration Protocol Diphenhydramine HCl 25 mg 10/06/23 16:00 10/07/23 08:51 Diphenhydramine 25 Mg Cap PO 25 mg TID [facility]EL Administration Heparin Sodium (Porcine) 0 unit 10/06/23 12:03 Heparin Sodium 1,000 Un/Ml (10ml Vl) IV PER PROTOCOL PRN Low PTT Protocol Hydralazine HCl 10 mg 10/06/23 17:59 10/06/23 18:10 Hydralazine Hcl 20 Mg/Ml 1 Ml Vial IVP 10 mg Q4HR PRN Administration Blood Pressure - High Hydrocortisone Sodium Succinate 100 mg 10/06/23 16:00 10/07/23 08:51 Hydrocortisone Succinate 100 Mg/2 Ml Vial IV 100 mg TID [facility]ISAEL Administration Norepinephrine Bitartrate 32 250 mls @ 1.172 mls/hr 10/06/23 10:19 10/06/23 12:03 mg/ Sodium Chloride IV 10/07/23 10:18 0.03 mcg/kg/min .Q24H ONE 1.172 mls/hr Administration Protocol 0.03 MCG/KG/MIN Heparin Sodium/Sodium Chloride 250 mls @ 10 mls/hr 10/06/23 12:15 10/06/23 13:04 25,000 unit/ Sodium Chloride IV 11.995 units/kg/hr .Q24H [facility]EL 10 mls/hr Administration Protocol 11.995 UNITS/KG/HR Propofol 1,000 mg/ IV Solution 100 mls @ 7.503 mls/hr 10/06/23 12:15 10/07/23 08:45 IV 60 mcg/kg/min .[id number] [facility] 30.013 mls/hr Titration Protocol 15 MCG/KG/MIN Sodium Chloride 1,000 ml/ IV 1,000 mls @ 83.37 mls/hr 10/06/23 13:15 10/07/23 00:06 Solution IV 83.37 mls/hr .Q12H [facility] Administration 1 ML/KG/HR Fentanyl Citrate 1,000 mcg/ 100 mls @ 4.169 mls/hr 10/07/23 02:45 10/07/23 08:29 Sodium Chloride IV 1 mcg/kg/hr .Q24H [facility]EL 8.337 mls/hr Titration Protocol 0.5 MCG/KG/HR Lisinopril 5 mg 10/06/23 21:00 10/07/23 08:51 Lisinopril 5 Mg Tab PO 5 mg BID [facility] Administration Melatonin 5 mg 10/06/23 21:00 10/06/23 20:05 Melatonin 5 Mg Tablet PO Not Given [facility] Metoprolol Tartrate 25 mg 10/06/23 21:00 10/07/23 08:51 Metoprolol Tartrate 25 Mg Tab PO 25 mg BID [facility] Administration Miscellaneous Information 1 each 10/06/23 14:23 Rx Info: Iv Contrast Was Given 1 Each Misc MISCELLANE 10/08/23 14:23 DAILY PRN Per Protocol Naloxone HCl 0.2 mg 10/06/23 14:48 Naloxone 0.4 Mg/Ml 1 Ml Vial IV Q2M PRN Opioid Reversal Nitroglycerin 0.4 mg 10/06/23 13:08 Nitroglycerin Sl Tabs 0.4 Mg Tab SUBLINGUAL Q5M PRN Chest Pain Non-Formulary Medication 25 mg 10/06/23 14:21 Naloxegol Oxalate [Movantik] PO DAILY PRN Constipation Oxycodone/Acetaminophen 1 each 10/06/23 14:21 10/06/23 20:48 Oxycodone-Apap 10-325mg 1 Each Tab PO 1 each TID PRN Administration Pain Pantoprazole Sodium 40 mg 10/06/23 11:45 10/07/23 08:51 Pantoprazole 40 Mg/10 Ml Vial IVP 40 mg DAILY [facility] Administration Zolpidem Tartrate 5 mg 10/06/23 14:23 Zolpidem 5 Mg Tab PO HS PRN Insomnia Intake and Output 10/06/23 10/07/23 10/07/23 22:59 06:59 14:59 Intake Total 873.367 917.726 230.975 Output Total 755 605 250 Balance 118.367 312.726 -19.025 Intake: IV 630 680 170 0.9% NS 30 80 20 Sodium Chloride 0.9% 1, 600 600 150 000 ml @ 75 mls/hr IV . [id number] [facility] Rx#:[id number] Intake, IV Titration 183.367 237.726 60.975 Amount fentaNYL (PF). 1,000 mcg 22.791 In Sodium Chloride 0.9% 80 ml @ 0.5 MCG/KG/HR 4. 169 mls/hr IV .Q24H [facility] Rx#:[id number] propofoL 1,000 mg In 183.367 237.726 38.184 Empty Bag 1 bag @ 15 MCG/ KG/MIN 7.503 mls/hr IV . [id number] [facility] Rx#:[id number] Other 60 Output: Urine 755 605 250 Other: Voiding Method Indwelling Catheter Indwelling Catheter Weight 83.37 kg 79.9 kg 10/07/23 04:42 10/07/23 04:42
--- NOTE | 2023-10-07 09:07 | P.PN ---
Subjective Progress Note Date: 10/07/23 Principal diagnosis: Acute coronary syndrome The patient is a 51-year-old female patient with a past medical history significant for history of alcohol use and history of drug use and multiple comorbid conditions was brought to the emergency department from home by ambulance after she had a witnessed cardiac arrest. The patient apparently had a cardiac arrest was ventricular fibrillation and she underwent shock multiple times. She was brought to normal sinus mechanism. In the ER she underwent further investigation including an EKG showing some ischemic ST changes anteri colton concerning for severe underlying coronary artery disease but at the same time the patient was intubated and she was on mechanical ventilation and the history was taken from the chart and from the ER physician. The patient underwent a heart catheterization after computed tomography scan of the brain showed no evidence of intracranial bleeding. A heart catheterization revealed critical disease involving the left anterior descending artery and intermediate disease involving the right coronary artery and left circumflex coronary artery. She underwent successful stenting of the left anterior descending artery with a good angiographic results with restoring GARETT-3 flow. The echo is still pending. The patient will be admitted to the intensive care unit. Manager Leasing consult will be obtained. Please note that she underwent a workup including urine drug screen and that came in to be normal. The patient presented to the emergency room according to the ER doctor was chest discomfort a few days before and that she was advised to stay but she refused and she decided to go home. That was informed to me by the ER physician yesterday. The examination is remarkable for distant heart sounds with a regular rhythm and the diminished breathing sounds bilaterally and no edema was noted in the lower extremities On 10/07/2023 The patient was seen and evaluated this morning. She still intubated on mechanical ventilation. She is hemodynamically stable and not on any vasopressors. She is trying to wake up. She possibly can be extubated in the next 24 hours. She is on dual antiplatelet therapy along with high intensity statin along with beta angelica and ERIBERTO inhibitor. The echo still pending and will follow-up on that. Examination is remarkable for intubated patient and irregular rhythm and distant heart sounds and diminished breathing sounds bilaterally and no edema was noted in the lower extremities Assessment Acute coronary syndrome History of drug abuse History of alcohol use Active history of smoking Multiple comorbid conditions Plan Continue current medical regimen including dual antiplatelet therapy Continue beta angelica and ERIBERTO inhibitor Continue high intensity statin Hopefully extubate the patient next 24 hours Obtain alcohol level Follow-up with the patient Objective - Vital Signs Vital signs: Vital Signs Temp 98.3 F 10/07/23 04:00 Pulse 82 10/07/23 07:00 Resp 18 10/07/23 07:00 BP 103/75 10/07/23 07:00 Pulse Ox 100 10/07/23 07:00 FiO2 40 10/07/23 08:05 Intake & Output 10/06/23 10/07/23 10/07/23 18:59 06:59 18:59 Intake Total 280.357 8457.762 230.975 Output Total 473 890 250 Balance -8.036 502.762 -19.025 Weight 83.37 kg 79.9 kg Intake: IV 350 1010 170 0.9% NS 110 20 Sodium Chloride 0.9% 1, 300 900 150 000 ml @ 75 mls/hr IV . [id number] [facility] Rx#:[id number] Intake, IV Titration 114.964 322.762 60.975 Amount fentaNYL (PF). 1,000 mcg 22.791 In Sodium Chloride 0.9% 80 ml @ 0.5 MCG/KG/HR 4. 169 mls/hr IV .Q24H [facility] Rx#:[id number] propofoL 1,000 mg In 114.964 322.762 38.184 Empty Bag 1 bag @ 15 MCG/ KG/MIN 7.503 mls/hr IV . [id number] [facility] Rx#:[id number] Other 60 Output: Urine 473 890 250 Uretheral ([place]) 3 Other: Voiding Method Indwelling Catheter ABP, PAP, CO, CI - Last Documented Arterial Blood Pressure 113/74 - Labs CBC & Chem 7: 10/07/23 04:42 10/07/23 04:42 Labs: Abnormal Lab Results - Last 24 Hours (Table) 10/06/23 10/06/23 10/06/23 Range/Units 09:50 09:50 09:50 WBC 19.1 H (3.8-10.6) k/uL RBC (3.80-5.40) m/uL MCV 107.8 H (80.0-100.0) fL MCH (25.0-35.0) pg Neutrophils # (1.3-7.7) k/uL Neutrophils # (Manual) 10.30 H (1.3-7.7) k/uL Lymphocytes # (1.0-4.8) k/uL Lymphocytes # (Manual) 7.45 H (1.0-4.8) k/uL Monocytes # (Manual) 1.15 H (0-1.0) k/uL Metamyelocytes # (Man) 0.19 H (0) k/uL APTT 20.2 L (22.0-30.0) sec D-Dimer (<0.60) mg/L FEU ABG pH (7.35-7.45) ABG pCO2 (35-45) mmHg ABG pO2 (83-108) mmHg ABG HCO3 (21-25) mmol/L ABG Total CO2 (19-24) mmol/L ABG O2 Saturation (94-97) % Chloride (98-107) mmol/L Carbon Dioxide (22-30) mmol/L BUN (7-17) mg/dL Creatinine (0.52-1.04) mg/dL Glucose (74-99) mg/dL POC Glucose (mg/dL) (70-110) mg/dL Plasma Lactic Acid Matthew (0.7-2.0) mmol/L AST (14-36) U/L ALT (4-34) U/L Troponin I (0.000-0.034) ng/mL Ur Oxycodone Screen Detected H (NotDetected) U Tricyclic Antidepress Detected H (NotDetected) 10/06/23 10/06/23 10/06/23 Range/Units 09:50 09:50 09:50 WBC (3.8-10.6) k/uL RBC (3.80-5.40) m/uL MCV (80.0-100.0) fL MCH (25.0-35.0) pg Neutrophils # (1.3-7.7) k/uL Neutrophils # (Manual) (1.3-7.7) k/uL Lymphocytes # (1.0-4.8) k/uL Lymphocytes # (Manual) (1.0-4.8) k/uL Monocytes # (Manual) (0-1.0) k/uL Metamyelocytes # (Man) (0) k/uL APTT (22.0-30.0) sec D-Dimer (<0.60) mg/L FEU ABG pH (7.35-7.45) ABG pCO2 (35-45) mmHg ABG pO2 (83-108) mmHg ABG HCO3 (21-25) mmol/L ABG Total CO2 (19-24) mmol/L ABG O2 Saturation (94-97) % Chloride (98-107) mmol/L Carbon Dioxide 10 L (22-30) mmol/L BUN 20 H (7-17) mg/dL Creatinine 1.12 H (0.52-1.04) mg/dL Glucose 218 H (74-99) mg/dL POC Glucose (mg/dL) (70-110) mg/dL Plasma Lactic Acid Matthew 10.3 H* (0.7-2.0) mmol/L AST 121 H (14-36) U/L ALT 90 H (4-34) U/L Troponin I 0.659 H* (0.000-0.034) ng/mL Ur Oxycodone Screen (NotDetected) U Tricyclic Antidepress (NotDetected) 10/06/23 10/06/23 10/06/23 Range/Units 09:51 10:08 14:50 WBC (3.8-10.6) k/uL RBC (3.80-5.40) m/uL MCV (80.0-100.0) fL MCH (25.0-35.0) pg Neutrophils # (1.3-7.7) k/uL Neutrophils # (Manual) (1.3-7.7) k/uL Lymphocytes # (1.0-4.8) k/uL Lymphocytes # (Manual) (1.0-4.8) k/uL Monocytes # (Manual) (0-1.0) k/uL Metamyelocytes # (Man) (0) k/uL APTT (22.0-30.0) sec D-Dimer (<0.60) mg/L FEU ABG pH 7.18 L* (7.35-7.45) ABG pCO2 (35-45) mmHg ABG pO2 363 H (83-108) mmHg ABG HCO3 16 L (21-25) mmol/L ABG Total CO2 17 L (19-24) mmol/L ABG O2 Saturation 99.5 H (94-97) % Chloride (98-107) mmol/L Carbon Dioxide (22-30) mmol/L BUN (7-17) mg/dL Creatinine (0.52-1.04) mg/dL Glucose (74-99) mg/dL POC Glucose (mg/dL) 214 H 126 H (70-110) mg/dL Plasma Lactic Acid Matthew (0.7-2.0) mmol/L AST (14-36) U/L ALT (4-34) U/L Troponin I (0.000-0.034) ng/mL Ur Oxycodone Screen (NotDetected) U Tricyclic Antidepress (NotDetected) 10/06/23 10/06/23 10/06/23 Range/Units 14:52 15:19 15:19 WBC (3.8-10.6) k/uL RBC (3.80-5.40) m/uL MCV (80.0-100.0) fL MCH (25.0-35.0) pg Neutrophils # (1.3-7.7) k/uL Neutrophils # (Manual) (1.3-7.7) k/uL Lymphocytes # (1.0-4.8) k/uL Lymphocytes # (Manual) (1.0-4.8) k/uL Monocytes # (Manual) (0-1.0) k/uL Metamyelocytes # (Man) (0) k/uL APTT 34.7 H (22.0-30.0) sec D-Dimer 5.50 H (<0.60) mg/L FEU ABG pH (7.35-7.45) ABG pCO2 (35-45) mmHg ABG pO2 (83-108) mmHg ABG HCO3 (21-25) mmol/L ABG Total CO2 (19-24) mmol/L ABG O2 Saturation (94-97) % Chloride 111 H (98-107) mmol/L Carbon Dioxide 15 L (22-30) mmol/L BUN 22 H (7-17) mg/dL Creatinine (0.52-1.04) mg/dL Glucose 138 H (74-99) mg/dL POC Glucose (mg/dL) (70-110) mg/dL Plasma Lactic Acid Matthew (0.7-2.0) mmol/L AST (14-36) U/L ALT (4-34) U/L Troponin I (0.000-0.034) ng/mL Ur Oxycodone Screen (NotDetected) U Tricyclic Antidepress (NotDetected) 10/06/23 10/07/23 10/07/23 Range/Units 15:19 01:41 04:42 WBC 10.8 H (3.8-10.6) k/uL RBC 3.77 L (3.80-5.40) m/uL MCV 105.8 H 107.3 H (80.0-100.0) fL MCH 35.1 H (25.0-35.0) pg Neutrophils # 8.5 H 9.6 H (1.3-7.7) k/uL Neutrophils # (Manual) (1.3-7.7) k/uL Lymphocytes # 0.5 L 0.7 L (1.0-4.8) k/uL Lymphocytes # (Manual) (1.0-4.8) k/uL Monocytes # (Manual) (0-1.0) k/uL Metamyelocytes # (Man) (0) k/uL APTT (22.0-30.0) sec D-Dimer (<0.60) mg/L FEU ABG pH (7.35-7.45) ABG pCO2 (35-45) mmHg ABG pO2 (83-108) mmHg ABG HCO3 (21-25) mmol/L ABG Total CO2 (19-24) mmol/L ABG O2 Saturation (94-97) % Chloride (98-107) mmol/L Carbon Dioxide (22-30) mmol/L BUN (7-17) mg/dL Creatinine (0.52-1.04) mg/dL Glucose (74-99) mg/dL POC Glucose (mg/dL) 132 H (70-110) mg/dL Plasma Lactic Acid Matthew (0.7-2.0) mmol/L AST (14-36) U/L ALT (4-34) U/L Troponin I (0.000-0.034) ng/mL Ur Oxycodone Screen (NotDetected) U Tricyclic Antidepress (NotDetected) 10/07/23 10/07/23 Range/Units 04:42 06:19 WBC (3.8-10.6) k/uL RBC (3.80-5.40) m/uL MCV (80.0-100.0) fL MCH (25.0-35.0) pg Neutrophils # (1.3-7.7) k/uL Neutrophils # (Manual) (1.3-7.7) k/uL Lymphocytes # (1.0-4.8) k/uL Lymphocytes # (Manual) (1.0-4.8) k/uL Monocytes # (Manual) (0-1.0) k/uL Metamyelocytes # (Man) (0) k/uL APTT (22.0-30.0) sec D-Dimer (<0.60) mg/L FEU ABG pH (7.35-7.45) ABG pCO2 33 L (35-45) mmHg ABG pO2 (83-108) mmHg ABG HCO3 19 L (21-25) mmol/L ABG Total CO2 (19-24) mmol/L ABG O2 Saturation 97.5 H (94-97) % Chloride 110 H (98-107) mmol/L Carbon Dioxide 17 L (22-30) mmol/L BUN (7-17) mg/dL Creatinine (0.52-1.04) mg/dL Glucose 105 H (74-99) mg/dL POC Glucose (mg/dL) (70-110) mg/dL Plasma Lactic Acid Matthew (0.7-2.0) mmol/L AST (14-36) U/L ALT (4-34) U/L Troponin I (0.000-0.034) ng/mL Ur Oxycodone Screen (NotDetected) U Tricyclic Antidepress (NotDetected)
--- NOTE | 2023-10-07 09:39 | XR ---
EXAMINATION TYPE: XR chest 1V DATE OF EXAM: 10/07/2023 COMPARISON: 10/06/2023 INDICATION: Assess lungs, difficulty breathing TECHNIQUE: Single frontal view of the chest is obtained. FINDINGS: The heart size is normal. The pulmonary vasculature is normal. The lungs are clear. Endotracheal tube is present with tip above the coty. Nasogastric tube transverses the thorax tip i n the proximal left upper quadrant of the abdomen. This has been pulled back slightly. This could be advanced 5 cm for better seating. Right central venous catheter is present with tip in the superior vena cava region. IMPRESSION: 1. Lines and catheters discussed above. The nasogastric tube be advanced 5 cm for better positioning. 2. No acute pulmonary process.
[2023-10-07] MEDS ORDERED: MD COMMUNICATION TO PHARMACY 1 EACH MISC PO PRN (09:44)
[2023-10-07] MEDS ORDERED: LORazepam 2 MG/ML INJ IV PRN (09:45)
[2023-10-07] MEDS: DEXMEDETOMIDINE/0.9% NACL(PMX) 400 MCG in EMPTY BAG 1 BAG IV SCH ×3 (10:15→20:59)
[2023-10-07] MEDS: oxyCODONE-APAP 10-325MG 1 EACH TAB PO PRN (10:29)
[2023-10-07 11:17] LABS: Appearance,Urine Clear (Clear); Bilirubin,Urine Negative (Negative); Blood,Urine Negative (Negative); Color,Urine Light Yellow; Glucose,Urine (UA) Negative (Negative); Ketones,Urine Negative (Negative); Leukocyte Esterase,Urine Negative (Negative); Nitrite,Urine Negative (Negative); Protein,Urine Negative (Negative); Specific Gravity,Urine 1.026 (1.001-1.035); Urobilinogen,Urine <2.0 mg/dL (<2.0)
--- NOTE | 2023-10-07 11:35 | P.PN ---
Subjective Progress Note Date: 10/07/23 Principal diagnosis: Respiratory failure. Pulmonary consult dated 10/06/2023. Female who presented to the emergency department, on October 06, and cardiopulmonary arrest. The patient apparently has been complaining of chest pain for the last couple of days. She was seen in the emergency room for chest pain, but decided to leave AGAINST MEDICAL ADVICE. I believe that was on October 02. She apparently returned to the emergency room the following day, for some blood work. The patient had a cardiopulmonary arrest, lasting for about 15 minutes, with ongoing resuscitation. She had a ventricular fibrillation arrest according to EMS. She received 3 different defibrillations, 3 rounds of epinephrine, 300 mg of amiodarone, followed by another 150 mg of amiodarone. The patient arrived to the ER with a Jarret tube in place. It was converted to a standard endotracheal tube. I was notified about the patient from the ER physician. The patient apparently has a history of COPD, fibromyalgia, GERD, hyperlipidemia, hypertension, DJD, seizure disorder, cervical cancer, and chronic tobacco and alcohol use. The patient was taken to the catheterization laboratory, from the ICU, and a stent was placed in the left anterior descending coronary artery. Her lactic acid was 10.3. She's currently on propofol at 50 mcg/kg/m. She's getting saline at 100 mL an hour. She was on norepinephrine but that has been turned off. Ventilator settings include the volume assist control, rate 16, tidal volume 450, FiO2 50%, and PEEP of 5. Blood gases on the 100% show pO2 363, pCO2 42, and a pH is 7.18. White count 19.1, hemoglobin 14.4, hematocrit 44.6, and platelet count 279,000. Sodium 139, potassium 4.6, chlorides 104, CO2 10, anion gap 25, BUN 20, and creatinine 1.12. Glucose 126. Lactic acid is 10.3. Troponin is 0.659. Drug screen was positive for oxycodone, and try cyclic antidepressants. Brain CT was negative for anything acute. Chest x-ray showed no sizable pneumothorax. A right central line was noted. Progress note dated 10/07/2023. 53-year-old female who presented to the emergency department on October 06, with cardiopulmonary arrest. The patient was resuscitated after 14 minutes of cardiopulmonary resuscitation. She was intubated, transferred to the intensive care unit. Currently, she is on volume assist control, rate 16, tidal volume 450, FiO2 40%, and PEEP of 5. Blood gases show pO2 of 91, pCO2 of 33, pH is 7.38. Currently, she is on saline at 75 mL an hour, fentanyl 1 mcg/kg/h, propofol 60 mcg/kg/m, among other things. Today, we'll add some Ativan, and dexmedetomidine, as to do a daily interruption of sedation and a spontaneous br eathing trial, to see whether or not the patient can be extubated. White count 10.8, hemoglobin 13.1, hematocrit 40.5, platelet count 201,000. Sodium 139, potassium 4.4, chlorides 110, CO2 17, anion gap 12, BUN 16, creatinine 0.78. Calcium 9, magnesium 2.0. Urine is negative. Chest x-ray looks normal. Objective - Vital Signs Vital signs: Vital Signs Temp 99.2 F 10/07/23 08:00 Pulse 67 10/07/23 11:00 Resp 16 10/07/23 11:00 BP 84/52 10/07/23 10:00 Pulse Ox 99 10/07/23 11:00 FiO2 40 10/07/23 11:20 Intake & Output 10/06/23 10/07/23 10/07/23 18:59 06:59 18:59 Intake Total 047.719 6149.762 554.716 Output Total 473 890 405 Balance -8.036 502.762 149.716 Weight 83.37 kg 79.9 kg Intake: IV 350 1010 425 0.9% NS 110 50 Sodium Chloride 0.9% 1, 300 900 375 000 ml @ 75 mls/hr IV . [id number] [facility] Rx#:[id number] Intake, IV Titration 114.964 322.762 129.716 Amount Dexmedetomidine/0.9% NaCl 3.995 (Pmx) 400 mcg In Empty Bag 1 bag @ 0.2 MCG/KG/HR 3.995 mls/hr IV .Q24H [facility] Rx#:[id number] Norepinephrine 32 mg In 22.209 Sodium Chloride 0.9% 218 ml @ 0.03 MCG/KG/MIN 1. 172 mls/hr IV .Q24H [facility] Rx#:[id number] fentaNYL (PF). 1,000 mcg 42.904 In Sodium Chloride 0.9% 80 ml @ 0.5 MCG/KG/HR 4. 169 mls/hr IV .Q24H [facility] Rx#:[id number] propofoL 1,000 mg In 114.964 322.762 60.608 Empty Bag 1 bag @ 15 MCG/ KG/MIN 7.503 mls/hr IV . [id number] [facility] Rx#:[id number] Other 60 Output: Urine 473 890 405 Uretheral ([place]) 3 Other: Voiding Method Indwelling Catheter Indwelling Catheter ABP, PAP, CO, CI - Last Documented Arterial Blood Pressure 83/46 - Exam No acute distress, sedated, with an orally placed endotracheal tube and NG tube. HEENT examination is grossly unremarkable. Neck supple. Full range of motion. No adenopathy thyromegaly or neck vein distention. Cardiovascular examination reveals regular rhythm rate. S1-S2 normal. No S3 or S4. No discernible murmur noted. Heart rate 77 bpm. Lungs reveal scattered rhonchi. No wheezes or crackles. Breath sounds equal bilaterally. Saturations are 99 %. Abdomen soft, without bowel sounds. No masses or tenderness. Extremities are intact. No cyanosis clubbing or edema. Skin is without rash or lesion. Neurologic examination cannot be evaluated at this time. - Labs CBC & Chem 7: 10/07/23 04:42 10/07/23 04:42 Labs: Abnormal Lab Results - Last 24 Hours (Table) 10/06/23 10/06/23 10/06/23 Range/Units 09:50 14:50 14:52 WBC (3.8-10.6) k/uL RBC (3.80-5.40) m/uL MCV (80.0-100.0) fL MCH (25.0-35.0) pg Neutrophils # (1.3-7.7) k/uL Neutrophils # (Manual) 10.30 H (1.3-7.7) k/uL Lymphocytes # (1.0-4.8) k/uL Lymphocytes # (Manual) 7.45 H (1.0-4.8) k/uL Monocytes # (Manual) 1.15 H (0-1.0) k/uL Metamyelocytes # (Man) 0.19 H (0) k/uL APTT (22.0-30.0) sec D-Dimer (<0.60) mg/L FEU ABG pCO2 (35-45) mmHg ABG HCO3 (21-25) mmol/L ABG O2 Saturation (94-97) % Chloride 111 H (98-107) mmol/L Carbon Dioxide 15 L (22-30) mmol/L BUN 22 H (7-17) mg/dL Glucose 138 H (74-99) mg/dL POC Glucose (mg/dL) 126 H (70-110) mg/dL 10/06/23 10/06/23 10/06/23 Range/Units 15:19 15:19 15:19 WBC (3.8-10.6) k/uL RBC (3.80-5.40) m/uL MCV 105.8 H (80.0-100.0) fL MCH 35.1 H (25.0-35.0) pg Neutrophils # 8.5 H (1.3-7.7) k/uL Neutrophils # (Manual) (1.3-7.7) k/uL Lymphocytes # 0.5 L (1.0-4.8) k/uL Lymphocytes # (Manual) (1.0-4.8) k/uL Monocytes # (Manual) (0-1.0) k/uL Metamyelocytes # (Man) (0) k/uL APTT 34.7 H (22.0-30.0) sec D-Dimer 5.50 H (<0.60) mg/L FEU ABG pCO2 (35-45) mmHg ABG HCO3 (21-25) mmol/L ABG O2 Saturation (94-97) % Chloride (98-107) mmol/L Carbon Dioxide (22-30) mmol/L BUN (7-17) mg/dL Glucose (74-99) mg/dL POC Glucose (mg/dL) (70-110) mg/dL 10/07/23 10/07/23 10/07/23 Range/Units 01:41 04:42 04:42 WBC 10.8 H (3.8-10.6) k/uL RBC 3.77 L (3.80-5.40) m/uL MCV 107.3 H (80.0-100.0) fL MCH (25.0-35.0) pg Neutrophils # 9.6 H (1.3-7.7) k/uL Neutrophils # (Manual) (1.3-7.7) k/uL Lymphocytes # 0.7 L (1.0-4.8) k/uL Lymphocytes # (Manual) (1.0-4.8) k/uL Monocytes # (Manual) (0-1.0) k/uL Metamyelocytes # (Man) (0) k/uL APTT (22.0-30.0) sec D-Dimer (<0.60) mg/L FEU ABG pCO2 (35-45) mmHg ABG HCO3 (21-25) mmol/L ABG O2 Saturation (94-97) % Chloride 110 H (98-107) mmol/L Carbon Dioxide 17 L (22-30) mmol/L BUN (7-17) mg/dL Glucose 105 H (74-99) mg/dL POC Glucose (mg/dL) 132 H (70-110) mg/dL 10/07/23 Range/Units 06:19 WBC (3.8-10.6) k/uL RBC (3.80-5.40) m/uL MCV (80.0-100.0) fL MCH (25.0-35.0) pg Neutrophils # (1.3-7.7) k/uL Neutrophils # (Manual) (1.3-7.7) k/uL Lymphocytes # (1.0-4.8) k/uL Lymphocytes # (Manual) (1.0-4.8) k/uL Monocytes # (Manual) (0-1.0) k/uL Metamyelocytes # (Man) (0) k/uL APTT (22.0-30.0) sec D-Dimer (<0.60) mg/L FEU ABG pCO2 33 L (35-45) mmHg ABG HCO3 19 L (21-25) mmol/L ABG O2 Saturation 97.5 H (94-97) % Chloride (98-107) mmol/L Carbon Dioxide (22-30) mmol/L BUN (7-17) mg/dL Glucose (74-99) mg/dL POC Glucose (mg/dL) (70-110) mg/dL Microbiology - Last 24 Hours (Table) 10/06/23 13:00 Gram Stain - Preliminary Sputum Assessment and Plan Assessment: [id number] cardiopulmonary arrest, with cardiopulmonary resuscitation and return of spontaneous circulation, after 14 or 15 minutes. The patient had a ventricular fibrillation arrest. Status post intubation, and mechanical ventilation, for cardiopulmonary arrest. Anion gap metabolic acidosis, secondary to lactic acidemia. Status post placement of a stent, and the LAD, 10/06/2023. History of COPD from chronic tobacco use. History of hypertension. History of hyperlipidemia. History of gastroesophageal reflux disease. History of fibromyalgia. History of seizure disorder. History of cervical cancer. History of alcohol abuse. Plan: Plan dated 10/06/2023. The patient was seen in the intensive care unit. He left radial arterial line was placed. A central line was placed by the ER physician. Labs, x-rays, and medications are reviewed. The vent bundle orders were implemented as were the ICU admission orders. Additional recommendations and suggestions are forthcoming. Labs, x-rays, and blood gases be done in the morning. Additional recommendations and suggestions are forthcoming. We will continue to follow make recommendations along the way. Prognosis is guarded, and the patient may have sustained anoxic brain injury. Plan dated 10/07/2023. The patient is seen today in room 262. I believe the patient might be ready for weaning and extubation. The patient will get both dexmedetomidine and Ativan, to replace her fentanyl and propofol. Blood gases are good. PaO2 91, pCO2 33, pH of 7.38. The patient's getting saline at 75 mL an hour. If we cannot extubate the patient, then we'll have to start the patient on tube feeds. Labs, x-rays, and medications are reviewed. The patient's overall prognosis remains guarded. We will continue to follow the patient, and make recommendations along the way. Time with Patient: Greater than 30
[2023-10-07 12:03] LABS: Glucose,Whole Blood 129 mg/dL (70-110)
--- NOTE | 2023-10-07 12:05 | CA ---
Transthoracic Echo Report Name: Renay Meneses Age: 53 Gender: F : 1970 Exam Date: 10/06/2023 15:22 Exam Location: [place] [facility] Ht (in): 68 Wt (lb): 183 Ordering Physician: Taylor Healy Attending/Referring Phys: [id number], Niraj Cardiology Associate Brittany García RDCS Procedure CPT: Indications: LV function, cardiac arrest Cardiac Hx: Technical Quality: Contrast 1: Total Dose (mL): Contrast 2: Total Dose (mL): MEASUREMENTS (Male / Female) Normal Values 2D ECHO LV Diastolic Diameter PLAX 4.3 cm 4.2 - 5.9 / 3.9 - 5.3 cm LV Systolic Diameter PLAX 3.4 cm IVS Diastolic Thickness 1.3 cm 0.6 - 1.0 / 0.6 - 0.9 cm LVPW Diastolic Thickness 1.1 cm 0.6 - 1.0 / 0.6 - 0.9 cm LV Relative Wall Thickness 0.5 RV Internal Dim ED PLAX 2.9 cm LV Diastolic Volume MOD BP 81.8 cm??? 67 - 155 / 56 - 104 cm??? LV Systolic Volume MOD BP 60.4 cm??? 22 - 58 / 19 - 49 cm??? LV Ejection Fraction MOD BP 26.2 % >= 55 % LV Diastolic Volume MOD 4C 83.7 cm??? LV Systolic Volume MOD 4C 62.5 cm??? LV Ejection Fraction MOD 4C 25.3 % LV Diastolic Length 4C 6.6 cm LV Systolic Length 4C 6.4 cm LV Diastolic Volume MOD 2C 80.6 cm??? LV Systolic Volume MOD 2C 56.2 cm??? LV Ejection Fraction MOD 2C 30.3 % LV Diastolic Length 2C 6.6 cm LV Systolic Length 2C 6.2 cm LA Volume 24.4 cm??? 18 - 58 / 22 - 52 cm??? LA Volume Index 12.1 cm???/m??? 16 - 28 cm???/m??? M-MODE LV Diastolic Diameter MM 5.8 cm 4.2 - 5.9 / 3.9 - 5.3 cm LV Systolic Diameter MM 4.9 cm IVS Diastolic Thickness MM 0.8 cm 0.6 - 1.0 / 0.6 - 0.9 cm LVPW Diastolic Thickness MM 0.8 cm 0.6 - 1.0 / 0.6 - 0.9 cm LV Relative Wall Thickness MM 0.3 0.24 - 0.42 / 0.22 - 0.42 LV Mass Index MM 85.6 g/m??? 49 - 115 / 43 - 95 g/m??? Aortic Root Diameter MM 2.5 cm LA Systolic Diameter MM 2.8 cm LA Ao Ratio MM 1.1 AV Cusp Separation MM 1.9 cm DOPPLER AV Peak Velocity 93.8 cm/s AV Peak Gradient 3.5 mmHg AV Mean Velocity 72.1 cm/s AV Mean Gradient 2.2 mmHg AV Velocity Time Integral 16.7 cm LVOT Peak Velocity 72.2 cm/s LVOT Peak Gradient 2.1 mmHg LVOT Velocity Time Integral 12.8 cm MV Area PHT 3.6 cm??? Mitral E Point Velocity 42.1 cm/s Mitral A Point Velocity 77.5 cm/s Mitral E to A Ratio 0.5 MV Deceleration Time 209.4 ms MV E' Velocity 3.7 cm/s Mitral E to MV E' Ratio 11.3 TR Peak Velocity 195.8 cm/s TR Peak Gradient 15.3 mmHg Right Ventricular Systolic Press 20.3 mmHg FINDINGS Left Ventricle Mildly increased left ventricular mass. Mildly increased septal wall thickness. Mildly increased posterior wall thickness. Severely decreased fractional shortening. Severely decreased midwall fractional shortening. Moderately increased left ventricular diastolic diameter. Moderately increased left ventricular systolic volume. Severely decreased left ventricular ejection fraction. Left ventricular ejection fraction is estimated at 25-30 %. Right Ventricle Normal right ventricular size and function. Right ventricular systolic pressure within normal limits. Right Atrium Normal right atrial size. Left Atrium Normal left atrial size. Mitral Valve Structurally normal mitral valve. No mitral stenosis. Mild mitral regurgitation. Aortic Valve No aortic valve stenosis or regurgitation. Tricuspid Valve Structurally normal tricuspid valve. Mild tricuspid regurgitation. Pulmonic Valve Structurally normal pulmonic valve. Pericardium No pericardial effusion. Aorta Normal size aortic root and proximal ascending aorta. CONCLUSIONS Impaired LV systolic function with an EF at 25-30% Previewed by: Dr. Arian Hickey MD (Electronically Signed) Final Date: 07 October 2023 12:03
[2023-10-07] MEDS: HEPARIN SOD,PORK IN 0.45% NACL 25,000 UNIT in 0.45% NACL 1 250ML.BAG IV SCH (12:28)
[2023-10-07 13:14] VITALS: BMI 26.7
[2023-10-07] MEDS: ATORVASTATIN 80 MG TAB PO SCH (21:01)
[2023-10-07] MEDS: MELATONIN 5 MG TABLET PO SCH (21:01)
--- NOTE | 2023-10-08 00:03 | P.PN ---
Subjective Patient is a 53-year-old female admitted after a cardiac respiratory arrest patient was in V. tach and patient received multiple doses of amiodarone, epinephrine after which patient returned to normal sinus rhythm patient was subsequently intubated and brought to the ER. Patient does have gag reflex brain stem reflexes and patient is comparing over the vent at this time. Total down time is around 15 minutes. Patient subsequently of troponin is elevated at this time patient has severe metabolic acidosis and lactic acidosis. Patient was recently admitted to the hospital for chest pain and she left against medical advise at that time. Patient does have leukocytosis. He is not available at this time but urine drug screen is positive for tricyclic antidepressants and oxycodone, plasma lactate of 10.3 chest x-ray didn't show any pneumonia patient presently intubated and endotracheal tube, patient is hypotensive does have history of adrenal insufficiency see patient was started on a high dose of hydrocortisone IV fluids is being admitted to ICU. 10/06/2023 Patient is seen in follow-up this morning monitored in the ICU on CIWA protocol and per nursing staff patient was having significant withdrawals overnight and brought to the ICU for closer monitoring. Psychiatry evaluated the patient making recommendations including starting naltrexone although patient was reported to use IV drugs including heroin one day prior to admission and per pharmacy is contraindicated at this time to start this medication. Recommend holding this medication until reevaluation by psychiatry and patient's mentation is improved. Patient is currently sleeping although arousable and becomes extremely agitated and restless and continues to be confused at this time. Patient is not safely able to take medications orally at this state and would h ighly recommend avoiding oral medications at this time. Patient is afebrile and there is been no reported shortness of breath or chest pains. Patient continues with the sitter at the bedside 10/07 24 Veins in the ICU intubated and sedated with pulmonary/critical care team followed closely with the plan for extubating her today Patient remains on heparin drip, aspirin and Plavix with emergency room orderly and return closely Ejection fraction was low at 25-30% on her echocardiogram but chest x-ray is wi th no acute process. Patient currently on hydrocortisone 100 mg 3 times a day and CIWA protocol and thiamine wbc of 10.8, lft mildly elevated. patient had low-grade temperature earlier but is now better. lactic acid came back to normal 0.7, tsh is normal 0.8, urine analysis is negative. urine drug screen is positive for oxycodone and tca. Review of systems: n/a pt- is intubated Active Medications Generic Name Dose Route Start Last Admin Trade Name Freq PRN Reason Stop Dose Admin Al Hydroxide/Mg Hydroxide 30 ml 10/06/23 14:23 Mag Hydrox/Al Hydrox/Simeth 30 Ml Cup PO Q4HR PRN Heartburn Aspirin 81 mg 10/07/23 09:00 10/07/23 08:51 Aspirin 81 Mg PO 81 mg DAILY MISAEL Administration Atorvastatin Calcium 80 mg 10/07/23 21:00 10/07/23 21:01 Atorvastatin 80 Mg Tab PO 80 mg HS MISAEL Administration Atropine Sulfate 0.5 mg 10/06/23 14:23 Atropine Sulfate 0.1 Mg/Ml 10ml Syringe IV ONCE PRN Symptomatic Bradycardia Clopidogrel Bisulfate 75 mg 10/07/23 09:00 10/07/23 08:51 Clopidogrel 75 Mg Tab PO 75 mg DAILY MISAEL Administration Protocol Diphenhydramine HCl 25 mg 10/06/23 16:00 10/07/23 21:00 Diphenhydramine 25 Mg Cap PO 25 mg TID MISAEL Administration Heparin Sodium (Porcine) 0 unit 10/06/23 12:03 Heparin Sodium 1,000 Un/Ml (10ml Vl) IV PER PROTOCOL PRN Low PTT Protocol Hydralazine HCl 10 mg 10/06/23 17:59 10/06/23 18:10 Hydralazine Hcl 20 Mg/Ml 1 Ml Vial IVP 10 mg Q4HR PRN Administration Blood Pressure - High Hydrocortisone Sodium Succinate 100 mg 10/06/23 16:00 10/07/23 21:01 Hydrocortisone Succinate 100 Mg/2 Ml Vial IV 100 mg TID MISAEL Administration Heparin Sodium/Sodium Chloride 250 mls @ 10 mls/hr 10/06/23 12:15 10/07/23 12:28 25,000 unit/ Sodium Chloride IV Not Given .Q24H [facility] Protocol 11.995 UNITS/KG/HR Sodium Chloride 1,000 ml/ IV 1,000 mls @ 83.37 mls/hr 10/06/23 13:15 10/07/23 14:12 Solution IV Not Given .Q12H M[facility]EL 1 ML/KG/HR Dexmedetomidine HCl 400 mcg/ 100 mls @ 3.995 mls/hr 10/07/23 10:00 10/07/23 20:59 IV Solution IV 0.8 mcg/kg/hr .Q24H [facility] 15.98 mls/hr Administration Protocol 0.2 MCG/KG/HR Lisinopril 5 mg 10/06/23 21:00 10/07/23 21:01 Lisinopril 5 Mg Tab PO 5 mg BID MISAEL Administration Lorazepam 1 mg 10/07/23 09:45 Lorazepam 2 Mg/Ml Inj IV Q1HR PRN CIWA 10 to 15 Lorazepam 1 mg 10/07/23 09:45 Lorazepam 2 Mg/Ml Inj IV Q2HR PRN CIWA 8 or 9 Melatonin 5 mg 10/06/23 21:00 10/07/23 21:01 Melatonin 5 Mg Tablet PO 5 mg HS MISAEL Administration Metoprolol Tartrate 25 mg 10/06/23 21:00 10/07/23 21:01 Metoprolol Tartrate 25 Mg Tab PO 25 mg BID MISAEL Administration Miscellaneous Information 1 each 10/06/23 14:23 Rx Info: Iv Contrast Was Given 1 Each Misc MISCELLANE 10/08/23 14:23 DAILY PRN Per Protocol Naloxone HCl 0.2 mg 10/06/23 14:48 Naloxone 0.4 Mg/Ml 1 Ml Vial IV Q2M PRN Opioid Reversal Nitroglycerin 0.4 mg 10/06/23 13:08 Nitroglycerin Sl Tabs 0.4 Mg Tab SUBLINGUAL Q5M PRN Chest Pain Non-Formulary Medication 25 mg 10/06/23 14:21 Naloxegol Oxalate [Movantik] PO DAILY PRN Constipation Oxycodone/Acetaminophen 1 each 10/06/23 14:21 10/07/23 10:29 Oxycodone-Apap 10-325mg 1 Each Tab PO 1 each TID PRN Administration Pain Pantoprazole Sodium 40 mg 10/06/23 11:45 10/07/23 08:51 Pantoprazole 40 Mg/10 Ml Vial IVP 40 mg DAILY MISAEL Administration Thiamine HCl 100 mg 10/08/23 09:00 Thiamine 100 Mg Tab PO DAILY MISAEL Zolpidem Tartrate 5 mg 10/06/23 14:23 Zolpidem 5 Mg Tab PO HS PRN Insomnia Objective - Vital Signs Vital signs: Vital Signs Temp 99.2 F 10/07/23 08:00 Pulse 67 10/07/23 11:00 Resp 16 10/07/23 11:00 BP 84/52 10/07/23 10:00 Pulse Ox 99 10/07/23 11:00 FiO2 40 10/07/23 08:05 Intake & Output 10/06/23 10/07/23 10/07/23 18:59 06:59 18:59 Intake Total 255.866 8225.762 554.716 Output Total 473 890 405 Balance -8.036 502.762 149.716 Weight 83.37 kg 79.9 kg Intake: IV 350 1010 425 0.9% NS 110 50 Sodium Chloride 0.9% 1, 300 900 375 000 ml @ 75 mls/hr IV . [id number] [facility] Rx#:[id number] Intake, IV Titration 114.964 322.762 129.716 Amount Dexmedetomidine/0.9% NaCl 3.995 (Pmx) 400 mcg In Empty Bag 1 bag @ 0.2 MCG/KG/HR 3.995 mls/hr IV .Q24H [facility] Rx#:[id number] Norepinephrine 32 mg In 22.209 Sodium Chloride 0.9% 218 ml @ 0.03 MCG/KG/MIN 1. 172 mls/hr IV .Q24H [facility] Rx#:[id number] fentaNYL (PF). 1,000 mcg 42.904 In Sodium Chloride 0.9% 80 ml @ 0.5 MCG/KG/HR 4. 169 mls/hr IV .Q24H [facility] Rx#:[id number] propofoL 1,000 mg In 114.964 322.762 60.608 Empty Bag 1 bag @ 15 MCG/ KG/MIN 7.503 mls/hr IV . [id number] [facility] Rx#:[id number] Other 60 Output: Urine 473 890 405 Uretheral (Vasques) 3 Other: Voiding Method Indwelling Catheter Indwelling Catheter ABP, PAP, CO, CI - Last Documented Arterial Blood Pressure 83/46 - Exam -GENERAL: The patient is intubated General: No conjunctival pallor. Normocephalic, atraumatic. No pharyngeal erythema. No thyromegaly. CARDIOVASCULAR: S1 and S2 present. No murmurs, rubs, or gallops. PULMONARY: Chest is clear to auscultation, no wheezing , no crackles. ABDOMEN: Soft, nontender, nondistended, normoactive bowel sounds. No palpable organomegaly. MUSCULOSKELETAL: No joint swelling or deformity. EXTREMITIES: No cyanosis, clubbing, or pedal edema. NEUROLOGICAL: Gross neurological examination did not reveal any focal deficits. SKIN: No rashes. no petechiae. - Labs CBC & Chem 7: 10/07/23 04:42 10/07/23 04:42 Labs: Abnormal Lab Results - Last 24 Hours (Table) 10/06/23 10/06/23 10/06/23 Range/Units 09:50 14:50 14:52 WBC (3.8-10.6) k/uL RBC (3.80-5.40) m/uL MCV (80.0-100.0) fL MCH (25.0-35.0) pg Neutrophils # (1.3-7.7) k/uL Neutrophils # (Manual) 10.30 H (1.3-7.7) k/uL Lymphocytes # (1.0-4.8) k/uL Lymphocytes # (Manual) 7.45 H (1.0-4.8) k/uL Monocytes # (Manual) 1.15 H (0-1.0) k/uL Metamyelocytes # (Man) 0.19 H (0) k/uL APTT (22.0-30.0) sec D-Dimer (<0.60) mg/L FEU ABG pCO2 (35-45) mmHg ABG HCO3 (21-25) mmol/L ABG O2 Saturation (94-97) % Chloride 111 H (98-107) mmol/L Carbon Dioxide 15 L (22-30) mmol/L BUN 22 H (7-17) mg/dL Glucose 138 H (74-99) mg/dL POC Glucose (mg/dL) 126 H (70-110) mg/dL 10/06/23 10/06/23 10/06/23 Range/Units 15:19 15:19 15:19 WBC (3.8-10.6) k/uL RBC (3.80-5.40) m/uL MCV 105.8 H (80.0-100.0) fL MCH 35.1 H (25.0-35.0) pg Neutrophils # 8.5 H (1.3-7.7) k/uL Neutrophils # (Manual) (1.3-7.7) k/uL Lymphocytes # 0.5 L (1.0-4.8) k/uL Lymphocytes # (Manual) (1.0-4.8) k/uL Monocytes # (Manual) (0-1.0) k/uL Metamyelocytes # (Man) (0) k/uL APTT 34.7 H (22.0-30.0) sec D-Dimer 5.50 H (<0.60) mg/L FEU ABG pCO2 (35-45) mmHg ABG HCO3 (21-25) mmol/L ABG O2 Saturation (94-97) % Chloride (98-107) mmol/L Carbon Dioxide (22-30) mmol/L BUN (7-17) mg/dL Glucose (74-99) mg/dL POC Glucose (mg/dL) (70-110) mg/dL 10/07/23 10/07/23 10/07/23 Range/Units 01:41 04:42 04:42 WBC 10.8 H (3.8-10.6) k/uL RBC 3.77 L (3.80-5.40) m/uL MCV 107.3 H (80.0-100.0) fL MCH (25.0-35.0) pg Neutrophils # 9.6 H (1.3-7.7) k/uL Neutrophils # (Manual) (1.3-7.7) k/uL Lymphocytes # 0.7 L (1.0-4.8) k/uL Lymphocytes # (Manual) (1.0-4.8) k/uL Monocytes # (Manual) (0-1.0) k/uL Metamyelocytes # (Man) (0) k/uL APTT (22.0-30.0) sec D-Dimer (<0.60) mg/L FEU ABG pCO2 (35-45) mmHg ABG HCO3 (21-25) mmol/L ABG O2 Saturation (94-97) % Chloride 110 H (98-107) mmol/L Carbon Dioxide 17 L (22-30) mmol/L BUN (7-17) mg/dL Glucose 105 H (74-99) mg/dL POC Glucose (mg/dL) 132 H (70-110) mg/dL 10/07/23 Range/Units 06:19 WBC (3.8-10.6) k/uL RBC (3.80-5.40) m/uL MCV (80.0-100.0) fL MCH (25.0-35.0) pg Neutrophils # (1.3-7.7) k/uL Neutrophils # (Manual) (1.3-7.7) k/uL Lymphocytes # (1.0-4.8) k/uL Lymphocytes # (Manual) (1.0-4.8) k/uL Monocytes # (Manual) (0-1.0) k/uL Metamyelocytes # (Man) (0) k/uL APTT (22.0-30.0) sec D-Dimer (<0.60) mg/L FEU ABG pCO2 33 L (35-45) mmHg ABG HCO3 19 L (21-25) mmol/L ABG O2 Saturation 97.5 H (94-97) % Chloride (98-107) mmol/L Carbon Dioxide (22-30) mmol/L BUN (7-17) mg/dL Glucose (74-99) mg/dL POC Glucose (mg/dL) (70-110) mg/dL Microbiology - Last 24 Hours (Table) 10/06/23 13:00 Gram Stain - Preliminary Sputum Assessment and Plan Assessment: Assessment and plan After cardiorespiratory arrest, went to tachycardia down from 15 minutes etiology is not clear patient has right bundle-branch block on the EKG with mildly elevated troponin can be primary cardiac causes including myocardial infarction cardiology will be consulted will repeat troponins. The other possible etiology being adrenal insufficiency for which patient was started on hydrocortisone no evidence of sepsis at this time -Lactic acidosis and anion gap metabolic acidosis severe secondary to severe intravascular on depletion and cardiorespiratory arrest patient need to be aggressively hydrated the patient will be started on 1 50 mL of normal saline received boluses of IV fluids unknown how many. -Acute respiratory failure secondary to cardiorespiratory arrest patient is presently intubated will be admitted to ICU -8 acute renal insufficiency patient will be started on 100 mg 3 times a day of hydrocortisone -Possible1 non-ST elevation myocardial infarction will need heparin cardiology consultation -Type 2 diabetes mellitus -Acute renal failure possibly acute tubular necrosis, monitor urine output patient has a Vasques catheter -Leukocytosis reactive so far there is no evidence of infection Shock mostly either cardiogenic or secondary to severity and I'll insufficiency patient was started on norepinephrine -COPD without any clicks admission and 10 have Probably be Hypertension -Hypothyroidism -Seizure disorder DVT prophylaxis: Subcutaneous heparin
[2023-10-08] MEDS: SODIUM CHLORIDE 0.9% 1,000 ML in EMPTY BAG 1 BAG IV SCH ×2 (00:12→13:59)
[2023-10-08] MEDS: oxyCODONE-APAP 10-325MG 1 EACH TAB PO PRN ×4 (00:26→20:43)
[2023-10-08] MEDS: DEXMEDETOMIDINE/0.9% NACL(PMX) 400 MCG in EMPTY BAG 1 BAG IV SCH (02:47)
[2023-10-08 05:50] LABS: Basophils % (A) 0 %; Eosinophils # (A) 0.1 k/uL (0-0.7); Eosinophils % (A) 1 %; HCT 36.6 % (34.0-46.0); HGB 12.2 gm/dL (11.4-16.0); Lymphocytes # (A) 1.3 k/uL (1.0-4.8); Lymphocytes % (A) 13 %; MCH 34.8 pg (25.0-35.0); MCHC 33.2 g/dL (31.0-37.0); MCV 104.7 fL (80.0-100.0); Macrocytosis Slight; Monocytes # (A) 0.4 k/uL (0-1.0); Monocytes % (A) 4 %; Neutrophils # (A) 8.3 k/uL (1.3-7.7); Neutrophils % (A) 82 %; Platelet Count 195 k/uL (150-450); RDW 13.4 % (11.5-15.5); WBC 10.2 k/uL (3.8-10.6)
[2023-10-08 06:00] LABS: African American GFR (CKD) >90 (>60 ml/min/1.73 sqM); Anion Gap 9 mmol/L; Blood Urea Nitrogen 14 mg/dL (7-17); Calcium 9.1 mg/dL (8.4-10.2); Carbon Dioxide 18 mmol/L (22-30); Chloride 112 mmol/L (98-107); Glucose 179 mg/dL (74-99); Non-African American GFR(CKD) >90 (>60 ml/min/1.73 sqM); Potassium 4.2 mmol/L (3.5-5.1); Sodium 139 mmol/L (137-145)
--- NOTE | 2023-10-08 07:56 | XR ---
EXAMINATION TYPE: XR chest 1V DATE OF EXAM: 10/08/2023 COMPARISON: 10/07/2023 INDICATION: Assess lungs TECHNIQUE: Single frontal view of the chest is obtained. FINDINGS: The heart size is normal. The pulmonary vasculature is normal. The lungs are clear. Endotracheal tube and nasogastric tube removed. Right central venous catheter remains present with th e tip in superior vena cava region. IMPRESSION: 1. No acute pulmonary process. 2. Stable apparent right central venous catheter.
[2023-10-08] MEDS: METOPROLOL TARTRATE 25 MG TAB PO SCH ×2 (08:32→20:44)
[2023-10-08] MEDS: HYDROCORTISONE SUCCINATE 100 MG/2 ML VIAL IV SCH ×3 (08:32→20:44)
[2023-10-08] MEDS: PANTOPRAZOLE 40 MG/10 ML VIAL IVP SCH (08:32)
[2023-10-08] MEDS: diphenhydrAMINE 25 MG CAP PO SCH ×3 (08:32→20:44)
[2023-10-08] MEDS: lisinopriL 5 MG TAB PO SCH ×2 (08:32→20:44)
[2023-10-08] MEDS: ASPIRIN 81 MG PO SCH (08:32)
[2023-10-08] MEDS: CLOPIDOGREL 75 MG TAB PO SCH (08:32)
[2023-10-08] MEDS: LORazepam 2 MG/ML INJ IV PRN ×2 (08:33→11:00)
[2023-10-08] MEDS ORDERED: THIAMINE 100 MG TAB PO SCH (09:00)
--- NOTE | 2023-10-08 11:55 | P.PN ---
Subjective Progress Note Date: 10/08/23 Principal diagnosis: Respiratory failure. Pulmonary consult dated 10/06/2023. Female who presented to the emergency department, on October 06, and cardiopulmonary arrest. The patient apparently has been complaining of chest pain for the last couple of days. She was seen in the emergency room for chest pain, but decided to leave AGAINST MEDICAL ADVICE. I believe that was on October 02. She apparently returned to the emergency room the following day, for some blood work. The patient had a cardiopulmonary arrest, lasting for about 15 minutes, with ongoing resuscitation. She had a ventricular fibrillation arrest according to EMS. She received 3 different defibrillations, 3 rounds of epinephrine, 300 mg of amiodarone, followed by another 150 mg of amiodarone. The patient arrived to the ER with a Jarret tube in place. It was converted to a standard endotracheal tube. I was notified about the patient from the ER physician. The patient apparently has a history of COPD, fibromyalgia, GERD, hyperlipidemia, hypertension, DJD, seizure disorder, cervical cancer, and chronic tobacco and alcohol use. The patient was taken to the catheterization laboratory, from the ICU, and a stent was placed in the left anterior descending coronary artery. Her lactic acid was 10.3. She's currently on propofol at 50 mcg/kg/m. She's getting saline at 100 mL an hour. She was on norepinephrine but that has been turned off. Ventilator settings include the volume assist control, rate 16, tidal volume 450, FiO2 50%, and PEEP of 5. Blood gases on the 100% show pO2 363, pCO2 42, and a pH is 7.18. White count 19.1, hemoglobin 14.4, hematocrit 44.6, and platelet count 279,000. Sodium 139, potassium 4.6, chlorides 104, CO2 10, anion gap 25, BUN 20, and creatinine 1.12. Glucose 126. Lactic acid is 10.3. Troponin is 0.659. Drug screen was positive for oxycodone, and try cyclic antidepressants. Brain CT was negative for anything acute. Chest x-ray showed no sizable pneumothorax. A right central line was noted. Progress note dated 10/07/2023. 53-year-old female who presented to the emergency department on October 06, with cardiopulmonary arrest. The patient was resuscitated after 14 minutes of cardiopulmonary resuscitation. She was intubated, transferred to the intensive care unit. Currently, she is on volume assist control, rate 16, tidal volume 450, FiO2 40%, and PEEP of 5. Blood gases show pO2 of 91, pCO2 of 33, pH is 7.38. Currently, she is on saline at 75 mL an hour, fentanyl 1 mcg/kg/h, propofol 60 mcg/kg/m, among other things. Today, we'll add some Ativan, and dexmedetomidine, as to do a daily interruption of sedation and a spontaneous br eathing trial, to see whether or not the patient can be extubated. White count 10.8, hemoglobin 13.1, hematocrit 40.5, platelet count 201,000. Sodium 139, potassium 4.4, chlorides 110, CO2 17, anion gap 12, BUN 16, creatinine 0.78. Calcium 9, magnesium 2.0. Urine is negative. Chest x-ray looks normal. Progress note dated 10/08/2023. 53-year-old female who is seen today in room 262. The patient came into the emergency department, on October 06, with a cardiopulmonary arrest. She was resuscitated after 14 minutes. The patient was intubated, and transferred to the intensive care unit. The patient did have a stent placed in her LAD. Yesterday, she was on the ventilator, but, we get a daily interruption of sedation, and a spontaneous breathing trial, and I'm happy to report that the patient was successfully extubated. She currently is on room air, and getting saline at 75 mL an hour. She has no particular complaints today, other than some soreness of the anterior chest, from chest compressions. White count 10.2, he will 12.2, hematocrit 36.6, and platelet count 195,000. Sodium 139, potassium 4.2, chlorides 112, CO2 18, BUN 14, creatinine 0.68. Calcium is 9.1. Chest x-ray shows no acute cardiopulmonary process. Objective - Vital Signs Vital signs: Vital Signs Temp 97.9 F 10/08/23 08:00 Pulse 80 10/08/23 11:00 Resp 13 10/08/23 11:00 BP 130/87 10/08/23 11:00 Pulse Ox 98 10/08/23 11:00 FiO2 40 10/07/23 12:00 Intake & Output 10/07/23 10/08/23 10/08/23 18:59 06:59 18:59 Intake Total 6213.332 4540.462 292.534 Output Total 1060 1835 150 Balance 207.272 -222.538 142.534 Weight 79.9 kg 77.2 kg Intake: IV 1020 943 237 0.9% NS 120 10 Sodium Chloride 0.9% 1, 900 900 225 000 ml @ 75 mls/hr IV . [id number] [facility] Rx#:[id number] pressure bag 33 12 Intake, IV Titration 247.272 129.462 55.534 Amount Dexmedetomidine/0.9% NaCl 121.551 129.462 55.534 (Pmx) 400 mcg In Empty Bag 1 bag @ 0.2 MCG/KG/HR 3.995 mls/hr IV .Q24H [facility] Rx#:[id number] Norepinephrine 32 mg In 22.209 Sodium Chloride 0.9% 218 ml @ 0.03 MCG/KG/MIN 1. 172 mls/hr IV .Q24H [facility] Rx#:[id number] fentaNYL (PF). 1,000 mcg 42.904 In Sodium Chloride 0.9% 80 ml @ 0.5 MCG/KG/HR 4. 169 mls/hr IV .Q24H [facility] Rx#:[id number] propofoL 1,000 mg In 60.608 Empty Bag 1 bag @ 15 MCG/ KG/MIN 7.503 mls/hr IV . [id number] [facility] Rx#:[id number] Oral 540 Output: Urine 1060 1835 150 Other: Voiding Method Indwelling Catheter Indwelling Catheter Indwelling Catheter ABP, PAP, CO, CI - Last Documented Arterial Blood Pressure 146/76 - Exam No acute distress, awake and alert, currently on room air. HEENT examination is grossly unremarkable. Neck supple. Full range of motion. No adenopathy thyromegaly or neck vein distention. Cardiovascular examination reveals regular rhythm rate. S1-S2 normal. No S3 or S4. No discernible murmur noted. Heart rate 80 bpm. Lungs reveal scattered rhonchi. No wheezes or crackles. Breath sounds equal bilaterally. Saturations are 98 %. Abdomen soft, without bowel sounds. No masses or tenderness. Extremities are intact. No cyanosis clubbing or edema. Skin is without rash or lesion. Neurologic examination is brief but nonfocal. - Labs CBC & Chem 7: 10/08/23 05:35 10/08/23 05:35 Labs: Abnormal Lab Results - Last 24 Hours (Table) 10/07/23 10/08/23 10/08/23 Range/Units 12:01 05:35 05:35 RBC 3.50 L (3.80-5.40) m/uL MCV 104.7 H (80.0-100.0) fL Neutrophils # 8.3 H (1.3-7.7) k/uL Chloride 112 H (98-107) mmol/L Carbon Dioxide 18 L (22-30) mmol/L Glucose 179 H (74-99) mg/dL POC Glucose (mg/dL) 129 H (70-110) mg/dL Microbiology - Last 24 Hours (Table) 10/06/23 13:00 Gram Stain - Preliminary Sputum Assessment and Plan Assessment: [id number] cardiopulmonary arrest, with cardiopulmonary resuscitation and return of spontaneous circulation, after 14 or 15 minutes. The patient had a ventricular fibrillation arrest. Status post intubation, and mechanical ventilation, for cardiopulmonary arrest, with successful extubation, on 10/07/2023. Anion gap metabolic acidosis, secondary to lactic acidemia. Status post placement of a stent, and the LAD, 10/06/2023. History of COPD from chronic tobacco use. History of hypertension. History of hyperlipidemia. History of gastroesophageal reflux disease. History of fibromyalgia. History of seizure disorder. History of cervical cancer. History of alcohol abuse. Plan: Plan dated 10/06/2023. The patient was seen in the intensive care unit. He left radial arterial line was placed. A central line was placed by the ER physician. Labs, x-rays, and medications are reviewed. The vent bundle orders were implemented as were the ICU admission orders. Additional recommendations and suggestions are forthcoming. Labs, x-rays, and blood gases be done in the morning. Additional recommendations and suggestions are forthcoming. We will continue to follow make recommendations along the way. Prognosis is guarded, and the patient may have sustained anoxic brain injury. Plan dated 10/07/2023. The patient is seen today in room 262. I believe the patient might be ready for weaning and extubation. The patient will get both dexmedetomidine and Ativan, to replace her fentanyl and propofol. Blood gases are good. PaO2 91, pCO2 33, pH of 7.38. The patient's getting saline at 75 mL an hour. If we cannot extubate the patient, then we'll have to start the patient on tube feeds. Labs, x-rays, and medications are reviewed. The patient's overall prognosis remains guarded. We will continue to follow the patient, and make recommendations along the way. Plan dated 10/08/2023. The patient is seen today in room 262. The patient was successfully extubated yesterday. The patient had a stent placed in her LAD. Currently, the patient's on room air. The patient is getting saline at 75 mL an hour. Labs, x-rays, and medications are all reviewed. Unnecessary medications are discontinued. We will continue to follow the patient, make recommendations along the way. Later today, if stable, she can likely move out of the intensive care unit, but does have to be admitted to 3 S. Time with Patient: Greater than 30
--- NOTE | 2023-10-08 13:53 | P.PN ---
Subjective Progress Note Date: 10/08/23 Principal diagnosis: Acute coronary syndrome The patient is a 51-year-old female patient with a past medical history significant for history of alcohol use and history of drug use and multiple comorbid conditions was brought to the emergency department from home by ambulance after she had a witnessed cardiac arrest. The patient apparently had a cardiac arrest was ventricular fibrillation and she underwent shock multiple times. She was brought to normal sinus mechanism. In the ER she underwent further investigation including an EKG showing some ischemic ST changes anteri colton concerning for severe underlying coronary artery disease but at the same time the patient was intubated and she was on mechanical ventilation and the history was taken from the chart and from the ER physician. The patient underwent a heart catheterization after computed tomography scan of the brain showed no evidence of intracranial bleeding. A heart catheterization revealed critical disease involving the left anterior descending artery and intermediate disease involving the right coronary artery and left circumflex coronary artery. She underwent successful stenting of the left anterior descending artery with a good angiographic results with restoring GARETT-3 flow. The echo is still pending. The patient will be admitted to the intensive care unit. Rehab Liaison consult will be obtained. Please note that she underwent a workup including urine drug screen and that came in to be normal. The patient presented to the emergency room according to the ER doctor was chest discomfort a few days before and that she was advised to stay but she refused and she decided to go home. That was informed to me by the ER physician yesterday. The examination is remarkable for distant heart sounds with a regular rhythm and the diminished breathing sounds bilaterally and no edema was noted in the lower extremities On 10/07/2023 The patient was seen and evaluated this morning. She still intubated on mechanical ventilation. She is hemodynamically stable and not on any vasopressors. She is trying to wake up. She possibly can be extubated in the next 24 hours. She is on dual antiplatelet therapy along with high intensity statin along with beta angelica and ERIBERTO inhibitor. The echo still pending and will follow-up on that. Examination is remarkable for intubated patient and irregular rhythm and distant heart sounds and diminished breathing sounds bilaterally and no edema was noted in the lower extremities October [id number] The patient was seen and evaluated this morning beach she is asymptomatic. She is hemodynamically stable as well. The echo showed LV dysfunction with an EF around 20-25%. Currently she is on dual antiplatelet therapy along with beta angelica and ERIBERTO inhibitor. We'll consider adding Aldactone to the current medical regimen. The patient can be transferred to the 3 south floor. She potentially would be discharged home with a LifeVest if the EF did not improve. The examination is remarkable for regular rhythm with clear breathing sounds bilaterally and no lower extremity edema and soft nontender abdomen Assessment Acute coronary syndrome Cardiomyopathy History of drug abuse History of alcohol use Active history of smoking Multiple comorbid conditions Plan Continue the current medical regimen Consider adding Aldactone Consider repeating the echo in 48 hours Consider discharging the patient on LifeVest if no improvement in the ejection fraction Objective - Vital Signs Vital signs: Vital Signs Temp 97.9 F 10/08/23 08:00 Pulse 95 10/08/23 13:00 Resp 20 10/08/23 13:00 BP 125/87 10/08/23 13:00 Pulse Ox 96 10/08/23 13:00 FiO2 40 10/07/23 12:00 Intake & Output 10/07/23 10/08/23 10/08/23 18:59 06:59 18:59 Intake Total 7843.478 2170.462 292.534 Output Total 1060 1835 700 Balance 207.272 -222.538 -407.466 Weight 79.9 kg 77.2 kg Intake: IV 1020 943 237 0.9% NS 120 10 Sodium Chloride 0.9% 1, 900 900 225 000 ml @ 75 mls/hr IV . [id number] [facility] Rx#:[id number] pressure bag 33 12 Intake, IV Titration 247.272 129.462 55.534 Amount Dexmedetomidine/0.9% NaCl 121.551 129.462 55.534 (Pmx) 400 mcg In Empty Bag 1 bag @ 0.2 MCG/KG/HR 3.995 mls/hr IV .Q24H [facility] Rx#:[id number] Norepinephrine 32 mg In 22.209 Sodium Chloride 0.9% 218 ml @ 0.03 MCG/KG/MIN 1. 172 mls/hr IV .Q24H [facility] Rx#:[id number] fentaNYL (PF). 1,000 mcg 42.904 In Sodium Chloride 0.9% 80 ml @ 0.5 MCG/KG/HR 4. 169 mls/hr IV .Q24H [facility] Rx#:[id number] propofoL 1,000 mg In 60.608 Empty Bag 1 bag @ 15 MCG/ KG/MIN 7.503 mls/hr IV . [id number] [facility] Rx#:[id number] Oral 540 Output: Urine 1060 1835 700 Other: Voiding Method Indwelling Catheter Indwelling Catheter Indwelling Catheter ABP, PAP, CO, CI - Last Documented Arterial Blood Pressure 146/76 - Labs CBC & Chem 7: 10/08/23 05:35 10/08/23 05:35 Labs: Abnormal Lab Results - Last 24 Hours (Table) 10/08/23 10/08/23 Range/Units 05:35 05:35 RBC 3.50 L (3.80-5.40) m/uL MCV 104.7 H (80.0-100.0) fL Neutrophils # 8.3 H (1.3-7.7) k/uL Chloride 112 H (98-107) mmol/L Carbon Dioxide 18 L (22-30) mmol/L Glucose 179 H (74-99) mg/dL Microbiology - Last 24 Hours (Table) 10/06/23 13:00 Gram Stain - Preliminary Sputum
[2023-10-08] MEDS: ATORVASTATIN 80 MG TAB PO SCH (20:44)
[2023-10-08] MEDS: MELATONIN 5 MG TABLET PO SCH (20:44)
--- NOTE | 2023-10-08 23:41 | P.PN ---
Subjective Patient is a 53-year-old female admitted after a cardiac respiratory arrest patient was in V. tach and patient received multiple doses of amiodarone, epinephrine after which patient returned to normal sinus rhythm patient was subsequently intubated and brought to the ER. Patient does have gag reflex brain stem reflexes and patient is comparing over the vent at this time. Total down time is around 15 minutes. Patient subsequently of troponin is elevated at this time patient has severe metabolic acidosis and lactic acidosis. Patient was recently admitted to the hospital for chest pain and she left against medical advise at that time. Patient does have leukocytosis. He is not available at this time but urine drug screen is positive for tricyclic antidepressants and oxycodone, plasma lactate of 10.3 chest x-ray didn't show any pneumonia patient presently intubated and endotracheal tube, patient is hypotensive does have history of adrenal insufficiency see patient was started on a high dose of hydrocortisone IV fluids is being admitted to ICU. 10/06/2023 Patient is seen in follow-up this morning monitored in the ICU on CIWA protocol and per nursing staff patient was having significant withdrawals overnight and brought to the ICU for closer monitoring. Psychiatry evaluated the patient making recommendations including starting naltrexone although patient was reported to use IV drugs including heroin one day prior to admission and per pharmacy is contraindicated at this time to start this medication. Recommend holding this medication until reevaluation by psychiatry and patient's mentation is improved. Patient is currently sleeping although arousable and becomes extremely agitated and restless and continues to be confused at this time. Patient is not safely able to take medications orally at this state and would h ighly recommend avoiding oral medications at this time. Patient is afebrile and there is been no reported shortness of breath or chest pains. Patient continues with the sitter at the bedside 10/07/23 Veins in the ICU intubated and sedated with pulmonary/critical care team followed closely with the plan for extubating her today Patient remains on heparin drip, aspirin and Plavix with radiator fitter and return closely Ejection fraction was low at 25-30% on her echocardiogram but chest x-ray is wi th no acute process. Patient currently on hydrocortisone 100 mg 3 times a day and CIWA protocol and thiamine wbc of 10.8, lft mildly elevated. patient had low-grade temperature earlier but is now better. lactic acid came back to normal 0.7, tsh is normal 0.8, urine analysis is negative. urine drug screen is positive for oxycodone and tca. 10/08/2023 This is a pleasant 53 years old female who presents with cardiac arrest and multiple episodes of V. tach on admission found to have significant cardiomyopathy with ejection fraction 25-30%, she status post extubation today for her mechanical ventilation. Today she has some chest pain, followed by radiator fitter on Heparin Drip, Aspirin Plavix. On CIWA Protocol and Thiamine and Hydrocortisone 100 Mg 3 Times A Day Patient Tolerated That She Looks Clinically Stable. No Leukocytosis and Her Fever Subsided Most Likely Reactive, No Other Signs of Infection and Noted for Antibiotic at This Point. Patient Will Require LifeVest upon discharge for low ejection fraction if no improvement with echocardiogram and 48 hours per recommendation of radiator fitter Review of systems CONSTITUTIONAL: No fever, no malaise, no fatigue. HEENT: No recent visual problems or hearing problems. Denied any sore throat. CARDIOVASCULAR: No orthopnea, PND, no palpitations, no syncope. PULMONARY: No shortness of breath, no cough, no hemoptysis. GASTROINTESTINAL: No diarrhea, no nausea, no vomiting, no abdominal pain. Normo active bowel sounds. Active Medications Generic Name Dose Route Start Last Admin Trade Name Freq PRN Reason Stop Dose Admin Al Hydroxide/Mg Hydroxide 30 ml 10/06/23 14:23 Mag Hydrox/Al Hydrox/Simeth 30 Ml Cup PO Q4HR PRN Heartburn Aspirin 81 mg 10/07/23 09:00 10/08/23 08:32 Aspirin 81 Mg PO 81 mg DAILY [facility] Administration Atorvastatin Calcium 80 mg 10/07/23 21:00 10/08/23 20:44 Atorvastatin 80 Mg Tab PO 80 mg HS [facility] Administration Atropine Sulfate 0.5 mg 10/06/23 14:23 Atropine Sulfate 0.1 Mg/Ml 10ml Syringe IV ONCE PRN Symptomatic Bradycardia Clopidogrel Bisulfate 75 mg 10/07/23 09:00 10/08/23 08:32 Clopidogrel 75 Mg Tab PO 75 mg DAILY [facility] Administration Protocol Diphenhydramine HCl 25 mg 10/06/23 16:00 10/08/23 20:44 Diphenhydramine 25 Mg Cap PO 25 mg TID [facility] Administration Hydralazine HCl 10 mg 10/06/23 17:59 10/06/23 18:10 Hydralazine Hcl 20 Mg/Ml 1 Ml Vial IVP 10 mg Q4HR PRN Administration Blood Pressure - High Hydrocortisone Sodium Succinate 100 mg 10/06/23 16:00 10/08/23 20:44 Hydrocortisone Succinate 100 Mg/2 Ml Vial IV 100 mg TID [facility] Administration Lisinopril 5 mg 10/06/23 21:00 10/08/23 20:44 Lisinopril 5 Mg Tab PO 5 mg BID [facility] Administration Lorazepam 1 mg 10/07/23 09:45 Lorazepam 2 Mg/Ml Inj IV Q1HR PRN CIWA 10 to 15 Lorazepam 1 mg 10/07/23 09:45 10/08/23 11:00 Lorazepam 2 Mg/Ml Inj IV 1 mg Q2HR PRN Administration CIWA 8 or 9 Melatonin 5 mg 10/06/23 21:00 10/08/23 20:44 Melatonin 5 Mg Tablet PO 5 mg HS [facility] Administration Metoprolol Tartrate 25 mg 10/06/23 21:00 10/08/23 20:44 Metoprolol Tartrate 25 Mg Tab PO 25 mg BID [facility] Administration Naloxone HCl 0.2 mg 10/06/23 14:48 Naloxone 0.4 Mg/Ml 1 Ml Vial IV Q2M PRN Opioid Reversal Nitroglycerin 0.4 mg 10/06/23 13:08 Nitroglycerin Sl Tabs 0.4 Mg Tab SUBLINGUAL Q5M PRN Chest Pain Non-Formulary Medication 25 mg 10/06/23 14:21 Naloxegol Oxalate [Movantik] PO DAILY PRN Constipation Oxycodone/Acetaminophen 1 each 10/06/23 14:21 10/08/23 20:43 Oxycodone-Apap 10-325mg 1 Each Tab PO 1 each TID PRN Administration Pain Pantoprazole Sodium 40 mg 10/06/23 11:45 10/08/23 08:32 Pantoprazole 40 Mg/10 Ml Vial IVP 40 mg DAILY [facility] Administration Thiamine HCl 100 mg 10/08/23 09:00 10/08/23 08:32 Thiamine 100 Mg Tab PO 100 mg DAILY [facility] Administration Zolpidem Tartrate 5 mg 10/06/23 14:23 Zolpidem 5 Mg Tab PO HS PRN Insomnia Objective - Vital Signs Vital signs: Vital Signs Temp 97.9 F 10/08/23 08:00 Pulse 82 10/08/23 12:00 Resp 25 H 10/08/23 12:00 BP 122/82 10/08/23 12:00 Pulse Ox 97 10/08/23 12:00 FiO2 40 10/07/23 12:00 Intake & Output 10/07/23 10/08/23 10/08/23 18:59 06:59 18:59 Intake Total 4558.206 4293.462 292.534 Output Total 1060 1835 700 Balance 207.272 -222.538 -407.466 Weight 79.9 kg 77.2 kg Intake: IV 1020 943 237 0.9% NS 120 10 Sodium Chloride 0.9% 1, 900 900 225 000 ml @ 75 mls/hr IV . [id number] [facility] Rx#:[id number] pressure bag 33 12 Intake, IV Titration 247.272 129.462 55.534 Amount Dexmedetomidine/0.9% NaCl 121.551 129.462 55.534 (Pmx) 400 mcg In Empty Bag 1 bag @ 0.2 MCG/KG/HR 3.995 mls/hr IV .Q24H [facility] Rx#:[id number] Norepinephrine 32 mg In 22.209 Sodium Chloride 0.9% 218 ml @ 0.03 MCG/KG/MIN 1. 172 mls/hr IV .Q24H [facility] Rx#:[id number] fentaNYL (PF). 1,000 mcg 42.904 In Sodium Chloride 0.9% 80 ml @ 0.5 MCG/KG/HR 4. 169 mls/hr IV .Q24H [facility] Rx#:[id number] propofoL 1,000 mg In 60.608 Empty Bag 1 bag @ 15 MCG/ KG/MIN 7.503 mls/hr IV . [id number] [facility] Rx#:[id number] Oral 540 Output: Urine 1060 1835 700 Other: Voiding Method Indwelling Catheter Indwelling Catheter Indwelling Catheter ABP, PAP, CO, CI - Last Documented Arterial Blood Pressure 146/76 - Exam GENERAL: The patient is alert and oriented x3, not in any acute distress. Well developed, well nourished. HEENT: Pupils are round and equally reacting to light. EOMI. No scleral icterus. No conjunctival pallor. Normocephalic, atraumatic. No pharyngeal erythema. No thyromegaly. CARDIOVASCULAR: S1 and S2 present. No murmurs, rubs, or gallops. PULMONARY: Chest is clear to auscultation, no wheezing , no crackles. ABDOMEN: Soft, nontender, nondistended, normoactive bowel sounds. No palpable organomegaly. MUSCULOSKELETAL: No joint swelling or deformity. EXTREMITIES: No cyanosis, clubbing, or pedal edema. NEUROLOGICAL: Gross neurological examination did not reveal any focal deficits. SKIN: No rashes. no petechiae. - Labs CBC & Chem 7: 10/08/23 05:35 10/08/23 05:35 Labs: Abnormal Lab Results - Last 24 Hours (Table) 10/08/23 10/08/23 Range/Units 05:35 05:35 RBC 3.50 L (3.80-5.40) m/uL MCV 104.7 H (80.0-100.0) fL Neutrophils # 8.3 H (1.3-7.7) k/uL Chloride 112 H (98-107) mmol/L Carbon Dioxide 18 L (22-30) mmol/L Glucose 179 H (74-99) mg/dL Microbiology - Last 24 Hours (Table) 10/06/23 13:00 Gram Stain - Preliminary Sputum Assessment and Plan Assessment: Assessment and plan After cardiorespiratory arrest, went to tachycardia down from 15 minutes etiology is not clear patient has right bundle-branch block on the EKG with mildly elevated troponin can be primary cardiac causes including myocardial infarction cardiology will be consulted will repeat troponins. The other possible etiology being adrenal insufficiency for which patient was started on hydrocortisone no evidence of sepsis at this time -Episodes of V. tach on admission with low ejection fraction 25-30% with recommendation for possible life vest upon discharge if no improvement in ejection fraction -Lactic acidosis and anion gap metabolic acidosis severe secondary to severe intravascular on depletion and cardiorespiratory arrest patient need to be aggressively hydrated the patient will be started on 1 50 mL of normal saline received boluses of IV fluids unknown how many. -Acute respiratory failure secondary to cardiorespiratory arrest patient is presently intubated will be admitted to ICU -8 acute renal insufficiency patient will be started on 100 mg 3 times a day of hydrocortisone -Possible1 non-ST elevation myocardial infarction will need heparin cardiology consultation -Type 2 diabetes mellitus -Acute renal failure possibly acute tubular necrosis, monitor urine output patient has a Vasques catheter -Leukocytosis reactive so far there is no evidence of infection Shock mostly either cardiogenic or secondary to severity and I'll insufficiency patient was started on norepinephrine -COPD without any clicks admission and 10 have Probably be Hypertension -Hypothyroidism -Seizure disorder DVT prophylaxis: Subcutaneous heparin
[2023-10-09 04:34] VITALS: BP 162/86; PULSE 81; RESP 18; TEMP 97.9
--- NOTE | 2023-10-09 08:43 | P.PN ---
Subjective Progress Note Date: 10/09/23 Is a 54-year-old female patient [facility] the patient had return of spontaneous circulation with a downtime of around 15 minutes. The patient had a V-fib arrest. The patient was on a mechanical ventilator and the patient was extubated on 10/07/2023. The patient had a emergent cardiac catheterization and the patient had an stent placement in the LAD on 10/06/2023. The patient is known to have COPD, hypertension, hyperlipidemia, fibromyalgia, seizure disorder and previous history of cervical cancer. The patient apparently was having some chest pain for several days. She decided to leave the emergency AGAINST MEDICAL ADVICE earlier in September 2023. Subsequently, she sustained a cardiopulmonary arrest. Her urine drug screen was positive for oxycodone and tricyclic antidepressants. Her echocardiogram was also completed on 10/06/2023 and the patient was found to have impaired LV function with an ejection fraction of 25 to 30%. For the time being, the patient is awake and alert and communicating and she is on room air oxygen. She is on a combination of aspirin and Plavix. She is on metoprolol 25 mg twice a day and lisinopril 5 mg p.o. twice a day and high-dose statins 80 mg p.o. daily. Pulse ox on room air is up to 97%. Hemodynamically stable. Cardiac rhythm is sinus. Note that her cardiac catheterization also showed some disease in her RCA and circumflex. The culprit however was the LAD that was stented successfully. This morning, the patient was quite frustrated and agitated. She absolutely didn't want to stay in the hospital., Arrived, the patient or the Paperwork to sign AMA and the patient was out of the door. Obviously, this is not what we recommend. Apparently, the primary care team has been involved in this decision making. The patient left the facility. We are going to contact her family members and 10 over at least her medication as the patient had a fresh cardiac arrest and severe cardiomyopathy and she underwent a recent cardiac intervention and stenting and she will need at least antiplatelet agents. Obviously, she is considered a high risk for mortality and readmission based on her behavior. She apparently looked conscious and oriented and very much aware of her decision and the sequences. She understood the consequences of her departure from the hospital May obviously lead to another cardiac arrest and mortality. She did walk away. She was being very rude to the nursing staff. She was swearing and using foul language on her way out. Objective - Vital Signs Vital signs: Vital Signs Temp 97.9 F 10/09/23 04:00 Pulse 81 10/09/23 04:00 Resp 18 10/09/23 04:00 BP 162/86 10/09/23 04:00 Pulse Ox 96 10/09/23 04:00 FiO2 40 10/07/23 12:00 Intake & Output 10/08/23 10/09/23 10/09/23 18:59 06:59 18:59 Intake Total 292.534 Output Total 700 Balance -407.466 Intake: IV 237 Sodium Chloride 0.9% 1, 225 000 ml @ 75 mls/hr IV . [id number] [facility] Rx#:[id number] pressure bag 12 Intake, IV Titration 55.534 Amount Dexmedetomidine/0.9% NaCl 55.534 (Pmx) 400 mcg In Empty Bag 1 bag @ 0.2 MCG/KG/HR 3.995 mls/hr IV .Q24H [facility] Rx#:[id number] Output: Urine 700 Other: Voiding Method Indwelling Catheter # Voids 2 ABP, PAP, CO, CI - Last Documented Arterial Blood Pressure 146/76 - Exam No acute distress, awake and alert, currently on room air. HEENT examination is grossly unremarkable. Neck supple. Full range of motion. No adenopathy thyromegaly or neck vein distention. Cardiovascular examination reveals regular rhythm rate. S1-S2 normal. No S3 or S4. No discernible murmur noted. Lungs reveal scattered rhonchi. No wheezes or crackles. Breath sounds equal bilaterally. Abdomen soft, without bowel sounds. No masses or tenderness. Extremities are intact. No cyanosis clubbing or edema. Skin is without rash or lesion. Neurologic examination is brief but nonfocal. - Labs CBC & Chem 7: 10/08/23 05:35 10/08/23 05:35 Assessment and Plan Plan: Assessment: [id number] cardiopulmonary arrest, with cardiopulmonary resuscitation and return of spontaneous circulation, after 14 or 15 minutes. The patient had a ventricular fibrillation arrest. Acute non-ST segment elevation myocardial infarction and the patient is post emergent cardiac catheterization and stenting of the LAD with good results. The patient also has disease, nonocclusive in the circumflex and the RCA. Acute cardiomyopathy with impaired LV function with an ejection fraction of 25 to 30% Status post intubation, and mechanical ventilation, for cardiopulmonary arrest, with successful extubation, on 10/07/2023. Anion gap metabolic acidosis, secondary to lactic acidemia. Status post placement of a stent, and the LAD, 10/06/2023. History of COPD from chronic tobacco use. History of hypertension. History of hyperlipidemia. History of gastroesophageal reflux disease. History of fibromyalgia. History of seizure disorder. History of cervical cancer. Plan Patient left AMA. She did not even await for us to fill any of her medications. We still have the responsibility of contacting her and her family and sending over her medication to the pharmacy of her choice as the patient has a stent and she is a high risk of the clotting, having another cardiac arrest and dying from her behavior. I will make sure that this is communicated again with her family members and the primary team and the fish icer and is aware that she left the facility. The patient was competent in making her decision. She was mentally appropriate. Obviously would disagree with her decision and she was made aware. Appropriate documentation was done by the nursing staff. AMA papers were signed. We are still going to follow and sent over to medication and recommended follow-up with cardiology.
== END 2023-10-09 08:04 | disposition left against medical advice (07) | DRG 321 ==
LOC: EC 09:32 → 2SICU 11:31
PROVIDERS: ADMIT Family Medicine; ATTEND Family Medicine
PROC: 03HY32Z Insertion of Monitoring Device into Upper Artery, Percutaneous Approach (ICD-10-PCS; 2023-10-06)
PROC: 02HV33Z Insertion of Infusion Device into Superior Vena Cava, Percutaneous Approach (ICD-10-PCS; 2023-10-06)
PROC: B5181ZA Fluoroscopy of Superior Vena Cava using Low Osmolar Contrast, Guidance (ICD-10-PCS; 2023-10-06)
PROC: B548ZZA Ultrasonography of Superior Vena Cava, Guidance (ICD-10-PCS; 2023-10-06)
PROC: B240ZZ3 Ultrasonography of Single Coronary Artery, Intravascular (ICD-10-PCS; 2023-10-06)
PROC: 027034Z Dilation of Coronary Artery, One Artery with Drug-eluting Intraluminal Device, Percutaneous Approach (ICD-10-PCS; principal; 2023-10-06 17:15)
PROC: B2111ZZ Fluoroscopy of Multiple Coronary Arteries using Low Osmolar Contrast (ICD-10-PCS; 2023-10-06 17:15)
PROC: 4A133B1 Monitoring of Arterial Pressure, Peripheral, Percutaneous Approach (ICD-10-PCS; 2023-10-06 17:15)
PROC: 4A133J1 Monitoring of Arterial Pulse, Peripheral, Percutaneous Approach (ICD-10-PCS; 2023-10-06 17:15)
DX: I21.4 Non-ST elevation (NSTEMI) myocardial infarction (principal); I46.2 Cardiac arrest due to underlying cardiac condition; I46.9 Cardiac arrest, cause unspecified; I49.01 Ventricular fibrillation; J96.01 Acute respiratory failure with hypoxia; N17.0 Acute kidney failure with tubular necrosis; R57.0 Cardiogenic shock; I42.9 Cardiomyopathy, unspecified; I47.20 Ventricular tachycardia, unspecified; E87.20 Acidosis, unspecified; Z99.11 Dependence on respirator [ventilator] status; F31.9 Bipolar disorder, unspecified; F41.9 Anxiety disorder, unspecified; G40.909 Epilepsy, unspecified, not intractable, without status epilepticus; I10 Essential (primary) hypertension; I45.10 Unspecified right bundle-branch block; I25.10 Atherosclerotic heart disease of native coronary artery without angina pectoris; J44.9 Chronic obstructive pulmonary disease, unspecified; M79.7 Fibromyalgia; K21.9 Gastro-esophageal reflux disease without esophagitis; J30.2 Other seasonal allergic rhinitis; M19.90 Unspecified osteoarthritis, unspecified site; Z79.82 Long term (current) use of aspirin; Z79.02 Long term (current) use of antithrombotics/antiplatelets; Z79.899 Other long term (current) drug therapy; Z80.3 Family history of malignant neoplasm of breast; Z82.49 Family history of ischemic heart disease and other diseases of the circulatory system; Z85.41 Personal history of malignant neoplasm of cervix uteri; Z86.14 Personal history of Methicillin resistant Staphylococcus aureus infection; Z90.710 Acquired absence of both cervix and uterus; Z98.82 Breast implant status; Z88.0 Allergy status to penicillin; Z91.041 Radiographic dye allergy status; Z91.011 Allergy to milk products; E03.9 Hypothyroidism, unspecified; Z79.890 Hormone replacement therapy; Z98.1 Arthrodesis status; Z87.01 Personal history of pneumonia (recurrent); I08.1 Rheumatic disorders of both mitral and tricuspid valves; Z98.51 Tubal ligation status; Z90.49 Acquired absence of other specified parts of digestive tract
CPT/HCPCS: 31500; 36415; 36556; 36600; 70450; 71045; 76937; 80048; 80053; 80143; 80306; 80320; 81003; 82805; 83605; 83735; 84443; 84484; 85025; 85379; 85610; 85730; 87070; 87205; 92978; 93005; 93306; 93454; 94002; 94003; 96361; 96365; 96375; 96376; 99291

== ENCOUNTER 2023-10-10 12:37 | Inpatient (IN) | payer MEDICARE, OTHER ==
[2023-10-10] MEDS ORDERED: NITROGLYCERIN OINT 1 INCH/GM PACKET TOPICAL STA (12:58)
[2023-10-10] MEDS ORDERED: SODIUM CHLORIDE 0.9% 500 ML 500 ML IV STA (12:58)
[2023-10-10] MEDS ORDERED: HYDROmorphone 0.5 MG/0.5 ML SYRINGE IVP STA ×2 (12:58→16:06)
[2023-10-10] MEDS ORDERED: ASPIRIN 81 MG PO STA ×2 (13:05→15:36)
--- NOTE | 2023-10-10 13:08 | ED ---
General Adult HPI - General Chief complaint: Chest Pain Stated complaint: Abnormal Labs-sent Dr Time Seen by Provider: 10/10/23 12:50 Source: patient, RN notes reviewed, old records reviewed Mode of arrival: ambulatory Limitations: no limitations - History of Present Illness Initial comments: This is a 53-year-old female who has a past medical history significant for cardiac stents in the last week. Patient was in the ICU and she left AMA yesterday. Patient was told by her primary medical care doctor to get back to the hospital so she did. Patient denies any chest pain that was similar to the chest pain she had when she had her heart attack but states that she is achy all over because they did CPR on her. Patient was seen a few days ago in the ER for chest pain and she left AMA on that day as well. Patient comes in today stating that she was directed to come in and she was having no new symptoms today owing the achiness in her chest because of the CPR. Patient denies shortness of breath or palpitations any fever chills. Patient denies any abdominal pain patient denies nausea - Related Data Home Medications Medication Instructions Recorded Confirmed oxyCODONE-APAP 10-325MG [Percocet 1 tab PO TID PRN 07/21/20 10/10/23 10-325 mg] diphenhydrAMINE HCL [Benadryl 25 mg PO TID 09/05/23 10/10/23 Allergy] Melatonin 5 mg PO HS 10/02/23 10/10/23 Naloxegol Oxalate [Movantik] 25 mg PO DAILY PRN 10/02/23 10/10/23 Omeprazole [PriLOSEC] 40 mg PO DAILY 10/02/23 10/10/23 Pantoprazole Sodium [Protonix] 40 mg PO DAILY 10/02/23 10/10/23 lisinopriL [Zestril] 5 mg PO BID 10/02/23 10/10/23 Aspirin EC [Ecotrin Low Dose] 81 mg PO DAILY 10/10/23 10/10/23 Atorvastatin [Lipitor] 80 mg PO HS 10/10/23 10/10/23 Clopidogrel [Plavix] 75 mg PO DAILY 10/10/23 10/10/23 Metoprolol Tartrate [Lopressor] 25 mg PO BID 10/10/23 10/10/23 Previous Rx's Medication Instructions Recorded Cyclobenzaprine [Flexeril] 10 mg PO TID PRN #15 tab 07/23/22 Allergies Allergy/AdvReac Type Severity Reaction Status Date / Time Penicillins Allergy Severe Anaphylaxis Verified 10/10/23 14:21 Iodinated Contrast Media Allergy Unknown Rash/Hives Verified 10/10/23 14:21 [Iodinated Contrast Media - IV Dye] egg yolk Allergy Nausea Verified 10/10/23 14:21 mustard Allergy Nausea Verified 10/10/23 14:21 Sulfa (Sulfonamide Allergy Rash/Hives Verified 10/10/23 14:21 Antibiotics) sulfamethoxazole Allergy Rash/Hives Verified 10/10/23 14:21 [From Bactrim] trimethoprim [From Bactrim] Allergy Rash/Hives Verified 10/10/23 14:21 Review of Systems ROS Statement: Those systems with pertinent positive or pertinent negative responses have been documented in the HPI. ROS Other: All systems not noted in ROS Statement are negative. Past Medical History Past Medical History: Cancer, COPD, Fibromyalgia, GERD/Reflux, Hyperlipidemia, Hypertension, Osteoarthritis (OA), Pneumonia, Seizure Disorder, Thyroid Disorder Additional Past Medical History / Comment(s): LAST SEIZURE about 1 yr ago. needs to get back on tegretol .H-pylori, arthritis in multiple joints, compression fracture L1 with chronic pain, , hypothyroid, , past elevated liver function tests, L breast "lump" being monitored, she has had blurry vision tri focals./bed wetting. weak bladder Cervical CA with hysterectomy. Adrenal insufficency. heartburn worse, ? reoccurance of hiatal hernia. seasonal allergies. History of Any Multi-Drug Resistant Organisms: MRSA Date of last positivie culture/infection: 05/17/23 MDRO Source:: Right Foot Past Surgical History: Adenoidectomy, Breast Surgery, Cholecystectomy, H ysterectomy, Orthopedic Surgery, Tonsillectomy, Tubal Ligation Additional Past Surgical History / Comment(s): Bilateral breast implants, bilateral oophorectomy d/t cysts, EGDs, EGD with dilation, susu fundoplication with revision, R elbow surgery for MRSA infection, R rotator cuff repair, low back surgery (cemented), bilateral hip surgery for tendon/muscle repairs/screws in place. Cervical fusion C4,5,6,7 Past Anesthesia/Blood Transfusion Reactions: Family History of Problems w/ Anesthesia Additional Past Anesthesia/Blood Transfusion Reaction / Comment(s): MOTHER= A- FIB WITH ANESTHESIA. Past Psychological History: Anxiety, Bipolar, Depression Smoking Status: Current every day smoker Past Alcohol Use History: None Reported Past Drug Use History: None Reported - Past Family History Father Family Medical History: Eye Disorder, Hypertension Additional Family Medical History / Comment(s): Father committed suicide at the age of 58yrs. He had glaucoma Brother(s) Family Medical History: No Reported History Additional Family Medical History / Comment(s): She has one brother that is a recovered alcoholic with no other major medical problems. Sister(s) Additional Family Medical History / Comment(s): Patient has one sister that suffers from depression and anxiety Mother Family Medical History: Cancer, Dementia, Diabetes Mellitus, Deep Vein Thrombosis (DVT), Eye Disorder, Hypertension Additional Family Medical History / Comment(s): Corneal transplant, breast cancer General Exam - General Exam Comments Initial Comments: GENERAL: Patient is well-developed and well-nourished. Patient is nontoxic and well- hydrated and is in mild distress. ENT: Neck is soft and supple. No significant lymphadenopathy is noted. Oropharynx is clear. Moist mucous membranes. Neck has full range of motion without eliciting any pain. EYES: The sclera were anicteric and conjunctiva were pink and moist. Extraocular movements were intact and pupils were equal round and reactive to light. Eyelids were unremarkable. PULMONARY: Unlabored respirations. Good breath sounds bilaterally. No audible rales rhonchi or wheezing was noted. CARDIOVASCULAR: There is a regular rate and rhythm without any murmurs gallops or rubs. ABDOMEN: Soft and nontender with normal bowel sounds. SKIN: Skin is clear with no lesions or rashes and otherwise unremarkable. NEUROLOGIC: Patient is alert and oriented x3. Cranial nerves II through XII are grossly intact. Motor and sensory are also intact. Normal speech, volume and content. Symmetrical smile. MUSCULOSKELETAL: Normal extremities with adequate strength and full range of motion. LYMPHATICS: No significant lymphadenopathy is noted PSYCHIATRIC: Normal psychiatric evaluation. Limitations: no limitations Course Vital Signs 10/10/23 10/10/23 12:40 14:31 Temperature 98.3 F Pulse Rate 88 68 Respiratory 18 18 Rate Blood Pressure 170/109 166/114 O2 Sat by Pulse 98 97 Oximetry Medical Decision Making - Medical Decision Making EKG is interpreted by myself. EKG shows a sinus rhythm at 81 bpm MI interval is on a 31-92 QT interval 302 QTC is 339 per patient's EKG shows no ST segment elevation or depression Was pt. sent in by a medical professional or institution (, SL[facility], ADVERTISING TEACHER, urgent care, hospital, or jail...) When possible be specific @ -Patient was sent in by her primary medical care doctor Did you speak to anyone other than the patient for history (EMS, parent, family, police, friend...)? What history was obtained from this source @ -No Did you review nursing and triage notes (agree or disagree)? Why? @ -I reviewed and agree with nursing and triage notes Were old charts reviewed (outside hosp., previous admission, EMS record, old EKG, old radiological studies, urgent care reports/EKG's, jail records)? Report findings @ -I reviewed prior charts and lab work on this patient Differential Diagnosis (chest pain, altered mental status, abdominal pain women, abdominal pain men, vaginal bleeding, weakness, fever, dyspnea, syncope, headache, dizziness, GI bleed, back pain, seizure, CVA, palpatations, mental health, musculoskeletal)? @ -Differential Chest Pain: Stable Angina, Unstable Angina, STEMI, NSTEMI Aortic Dissection, Pneumothorax, Musculoskeletal, Esophageal Spasm GERD, Cholecystitis, Pancreatitis, Zoster, this is not meant to be an all-inclusive list. EKG interpreted by me (3pts min.). @ -As above X-rays interpreted by me (1pt min.). @ -Chest x-ray shows no acute abnormality CT interpreted by me (1pt min.). @ -No U/S interpreted by me (1pt. min.). @ -None done What testing was considered but not performed or refused? (CT, X-rays, U/S, labs)? Why? @ -None What meds were considered but not given or refused? Why? @ -None Did you discuss the management of the patient with other professionals (professionals i.e. [employer] Cade, ADVERTISING TEACHER, lab, RT, psych nurse, social services coordinator, professor of latin american studies, teacher, major gifts officer, director of casework services)? Give summary @ -Spoke with Dr. Cerna he wanted the patient admitted Was smoking cessation discussed for >3mins.? @ -No Was critical care preformed (if so, how long)? @ -No Were there social determinants of health that impacted care today? How? (Homelessness, low income, unemployed, alcoholism, drug addiction, transportation, low edu. Level, literacy, decrease access to med. care, halfway, rehab)? @ -No Was there de-escalation of care discussed even if they declined (Discuss DNR or withdrawal of care, Hospice)? DNR status @ -No What co-morbidities impacted this encounter? (DM, HTN, Smoking, COPD, CAD, Cancer, CVA, ARF, Chemo, Hep., AIDS, mental health diagnosis, sleep apnea, morbid obesity)? @ -None Was patient admitted / discharged? Hospital course, mention meds given and route, prescriptions, significant lab abnormalities, going to OR and other pertinent info. @ -Patient had no new complaints she came back today because she left AMA yesterday and she was told by her primary medical care doctor she needs to come back to the hospital. Exacerbation states her pain in her chest today is soreness from having CPR done it's not the kind of pain she had prior to her stent placement. Patient's troponin is elevated Undiagnosed new problem with uncertain prognosis? @ -No Drug Therapy requiring intensive monitoring for toxicity (Heparin, Nitro, Insulin, Cardizem)? @ -No Were any procedures done? @ -No Diagnosis/symptom? @ -Atypical chest pain Acute, or Chronic, or Acute on Chronic? @ -Acute Uncomplicated (without systemic symptoms) or Complicated (systemic symptoms)? @ -Complicated Side effects of treatment? @ -No Exacerbation, Progression, or Severe Exacerbation? @ -No Poses a threat to life or bodily function? How? (Chest pain, USA, NC, pneumonia, PE, COPD, DKA, ARF, appy, cholecystitis, CVA, Diverticulitis, Homicidal, Suicidal, threat to staff... and all critical care pts) @ -This could lead to syncope significant bile dysfunction secondary to the fact that the patient had cardiac arrest a few days ago. - Lab Data Result diagrams: 10/10/23 13:08 10/10/23 13:08 Lab Results 10/10/23 10/10/23 10/10/23 Range/Units 13:08 13:08 13:08 WBC 8.1 (3.8-10.6) k/uL RBC 3.91 (3.80-5.40) m/uL Hgb 13.7 (11.4-16.0) gm/dL Hct 39.7 (34.0-46.0) % MCV 101.7 H (80.0-100.0) fL MCH 35.2 H (25.0-35.0) pg MCHC 34.6 (31.0-37.0) g/dL RDW 13.4 (11.5-15.5) % Plt Count 202 (150-450) k/uL MPV 8.1 Neutrophils % 57 % Lymphocytes % 34 % Monocytes % 5 % Eosinophils % 2 % Basophils % 1 % Neutrophils # 4.6 (1.3-7.7) k/uL Lymphocytes # 2.7 (1.0-4.8) k/uL Monocytes # 0.4 (0-1.0) k/uL Eosinophils # 0.1 (0-0.7) k/uL Basophils # 0.1 (0-0.2) k/uL Macrocytosis Slight PT 9.8 L (10.0-12.5) sec INR 0.9 (<1.2) APTT 22.8 (22.0-30.0) sec Sodium 139 (137-145) mmol/L Potassium 3.4 L (3.5-5.1) mmol/L Chloride 106 (98-107) mmol/L Carbon Dioxide 25 (22-30) mmol/L Anion Gap 8 mmol/L BUN 13 (7-17) mg/dL Creatinine 0.65 (0.52-1.04) mg/dL Est GFR (CKD-EPI)AfAm >90 (>60 ml/min/1.73 sqM) Est GFR (CKD-EPI)NonAf >90 (>60 ml/min/1.73 sqM) Glucose 99 (74-99) mg/dL Calcium 9.2 (8.4-10.2) mg/dL Magnesium 1.7 (1.6-2.3) mg/dL Total Bilirubin 0.5 (0.2-1.3) mg/dL AST 33 (14-36) U/L ALT 32 (4-34) U/L Alkaline Phosphatase 102 (38-126) U/L Troponin I (0.000-0.034) ng/mL Total Protein 6.2 L (6.3-8.2) g/dL Albumin 3.6 (3.5-5.0) g/dL 10/10/23 Range/Units 13:08 WBC (3.8-10.6) k/uL RBC (3.80-5.40) m/uL Hgb (11.4-16.0) gm/dL Hct (34.0-46.0) % MCV (80.0-100.0) fL MCH (25.0-35.0) pg MCHC (31.0-37.0) g/dL RDW (11.5-15.5) % Plt Count (150-450) k/uL MPV Neutrophils % % Lymphocytes % % Monocytes % % Eosinophils % % Basophils % % Neutrophils # (1.3-7.7) k/uL Lymphocytes # (1.0-4.8) k/uL Monocytes # (0-1.0) k/uL Eosinophils # (0-0.7) k/uL Basophils # (0-0.2) k/uL Macrocytosis PT (10.0-12.5) sec INR (<1.2) APTT (22.0-30.0) sec Sodium (137-145) mmol/L Potassium (3.5-5.1) mmol/L Chloride (98-107) mmol/L Carbon Dioxide (22-30) mmol/L Anion Gap mmol/L BUN (7-17) mg/dL Creatinine (0.52-1.04) mg/dL Est GFR (CKD-EPI)AfAm (>60 ml/min/1.73 sqM) Est GFR (CKD-EPI)NonAf (>60 ml/min/1.73 sqM) Glucose (74-99) mg/dL Calcium (8.4-10.2) mg/dL Magnesium (1.6-2.3) mg/dL Total Bilirubin (0.2-1.3) mg/dL AST (14-36) U/L ALT (4-34) U/L Alkaline Phosphatase (38-126) U/L Troponin I 1.080 H* (0.000-0.034) ng/mL Total Protein (6.3-8.2) g/dL Albumin (3.5-5.0) g/dL Disposition Clinical Impression: Atypical chest pain, Elevated troponin Disposition: ADMITTED IP TO THIS HOSP Referrals: Albert Cerna MD [Primary Care Provider] - 1-2 days Time of Disposition: 15:34
[2023-10-10 13:30] LABS: Basophils # (A) 0.1 k/uL (0-0.2); Basophils % (A) 1 %; Eosinophils # (A) 0.1 k/uL (0-0.7); Eosinophils % (A) 2 %; HCT 39.7 % (34.0-46.0); HGB 13.7 gm/dL (11.4-16.0); Lymphocytes # (A) 2.7 k/uL (1.0-4.8); Lymphocytes % (A) 34 %; MCH 35.2 pg (25.0-35.0); MCHC 34.6 g/dL (31.0-37.0); MCV 101.7 fL (80.0-100.0); Macrocytosis Slight; Mean Platelet Volume 8.1; Monocytes # (A) 0.4 k/uL (0-1.0); Monocytes % (A) 5 %; Neutrophils # (A) 4.6 k/uL (1.3-7.7); Neutrophils % (A) 57 %; Platelet Count 202 k/uL (150-450); RBC 3.91 m/uL (3.80-5.40); RDW 13.4 % (11.5-15.5); WBC 8.1 k/uL (3.8-10.6)
[2023-10-10 13:43] LABS: INR 0.9 (<1.2); Partial Thromboplastin Time 22.8 sec (22.0-30.0); Prothrombin Time 9.8 sec (10.0-12.5)
--- NOTE | 2023-10-10 13:50 | XR ---
EXAMINATION TYPE: XR chest 2V DATE OF EXAM: 10/10/2023 1:44 PM CLINICAL INDICATION:Female, 53 years old with history of Chest Pain COMPARISON: Chest radiographs from 10/08/2023. TECHNIQUE: XR chest 2V Frontal and lateral views of the chest. FINDINGS: Lungs/Pleura: There is no evidence of pleural effusion, focal consolidation, or pneumothorax. Pulmonary vascularity: Unremarkable. Heart/mediastinum: Cardiomediastinal silhouette is unremarkable. Musculoskeletal: No acute osseous pathology. There is fixation hardware in the lower cervical spine. Other findings: None IMPRESSION: No acute cardiopulmonary disease/process.
[2023-10-10 13:56] LABS: ALT 32 U/L (4-34); AST 33 U/L (14-36); African American GFR (CKD) >90 (>60 ml/min/1.73 sqM); Albumin 3.6 g/dL (3.5-5.0); Alkaline Phosphatase 102 U/L (38-126); Anion Gap 8 mmol/L; Blood Urea Nitrogen 13 mg/dL (7-17); Calcium 9.2 mg/dL (8.4-10.2); Carbon Dioxide 25 mmol/L (22-30); Chloride 106 mmol/L (98-107); Glucose 99 mg/dL (74-99); Magnesium 1.7 mg/dL (1.6-2.3); Non-African American GFR(CKD) >90 (>60 ml/min/1.73 sqM); Potassium 3.4 mmol/L (3.5-5.1); Sodium 139 mmol/L (137-145); Total Bilirubin 0.5 mg/dL (0.2-1.3); Total Protein 6.2 g/dL (6.3-8.2)
[2023-10-10] MEDS ORDERED: hydrALAZINE HCL 20 MG/ML 1 ML VIAL IVP STA ×2 (15:13→22:43)
[2023-10-10] MEDS ORDERED: NITROGLYCERIN SL TABS 0.4 MG TAB SUBLINGUAL PRN (15:36)
[2023-10-10] MEDS: NITROGLYCERIN OINT 1 INCH/GM PACKET TOPICAL SCH (17:11)
--- NOTE | 2023-10-10 18:20 | US ---
EXAMINATION TYPE: US venous doppler duplex UE RT DATE OF EXAM: 10/10/2023 COMPARISON: NONE CLINICAL INDICATION: Female, 53 years old with history of RUE swelling/pain; Pt had a cardiac arrest episode on 10/06/23. Stent placed in heart through right radial. Right arm swelling and pain. No hx of DVT. Placed on blood thinners on 10/06/23 SIDE PERFORMED: Right Right Arm: No evidence for DVT IMPRESSION: Grayscale, color doppler, spectral doppler imaging performed of the deep veins of the upper extremiti es. There is normal flow, compressibility and vascular waveforms. No evidence of right upper extremity DVT.
[2023-10-10] MEDS ORDERED: CYCLOBENZAPRINE 10 MG TAB PO PRN (22:43)
[2023-10-10] MEDS: oxyCODONE-APAP 10-325MG 1 EACH TAB PO PRN (23:48)
[2023-10-10] MEDS: MELATONIN 5 MG TABLET PO SCH (23:49)
[2023-10-10] MEDS: diphenhydrAMINE 25 MG CAP PO SCH (23:49)
[2023-10-10] MEDS: lisinopriL 5 MG TAB PO SCH (23:50)
[2023-10-10] MEDS: ATORVASTATIN 80 MG TAB PO SCH (23:50)
[2023-10-10] MEDS: METOPROLOL TARTRATE 25 MG TAB PO SCH (23:52)
[2023-10-11] MEDS: NITROGLYCERIN OINT 1 INCH/GM PACKET TOPICAL SCH ×2 (05:36→08:11)
[2023-10-11] MEDS: CLOPIDOGREL 75 MG TAB PO SCH (08:11)
[2023-10-11] MEDS: ASPIRIN 81 MG PO SCH (08:11)
[2023-10-11] MEDS: lisinopriL 5 MG TAB PO SCH (08:11)
[2023-10-11] MEDS: PANTOPRAZOLE 40 MG TABLET PO SCH (08:11)
[2023-10-11] MEDS: METOPROLOL TARTRATE 25 MG TAB PO SCH ×2 (08:12→20:20)
[2023-10-11] MEDS: diphenhydrAMINE 25 MG CAP PO SCH ×3 (08:12→20:20)
[2023-10-11] MEDS ORDERED: LIDOCAINE 4% CREAM 5 GM TUBE TOPICAL PRN (08:32)
[2023-10-11] MEDS ORDERED: NON FORMULARY DRUG (Naloxegol Oxalate [Movantik] 25 MG Tablet) PO PRN (09:00)
[2023-10-11] MEDS ORDERED: ASPIRIN 325 MG TAB PO SCH (09:00)
[2023-10-11] MEDS ORDERED: PANTOPRAZOLE 40 MG TABLET PO SCH (09:00)
--- NOTE | 2023-10-11 10:30 | P.CRDCN ---
History of Present Illness Consult date: 10/11/23 Consult reason: chest pain History of present illness: History of present illness: This is a 53-year-old female presented to the hospital on October 06 secondary to cardiac arrest secondary to ventricular tachycardia underwent CPR both by significant other and EMS, defibrillated x 3 with epinephrine and amiodarone and was intubated, admitted to the intensive care unit. EKG showed a right bundle branch block with mild ST elevation in V1 and V2 and T wave inversions in V1 through V3. Patient subsequently underwent cardiac catheterization which revealed critical disease involving proximal LAD and successful stenting of the LAD as well. Patient was started on dual antiplatelet therapy as well as statin, ERIBERTO inhibitor and beta-angelica. Patient's echocardiogram revealed EF of 25 to 30%. Patient was advised that a LifeVest would be needed prior to her discharge but on MondayOctober 09, patient signed out AMA. She has subsequently been contacted by her PCP and requested that she come back into the hospital and thus we are seeing her. Patient is complaining of significant pain to her right arm where access was obtained for cardiac cath. She states it is very sore and swollen. Patient denies having shortness of breath no lower extremity edema. Patient is still actively smoking but states she will quit. She denies any alcohol use. EKG sinus rhythm with Q waves in the anterior leads Chest x-ray: No acute finding Ultrasound of the right upper extremity negative for DVT WBC 8.1, hemoglobin 13.7, platelet count 202. INR 0.9. Sodium 139, potassium 3.4, creatinine 0.65. Troponins 1.08, 1.21, 1.03. Magnesium 1.7. Liver function tests are normal. Home cardiac medications: Aspirin 81 mg daily, atorvastatin 80 mg daily, Plavix 75 mg daily, lisinopril 5 mg twice daily, Lopressor 25 mg twice daily. Review Of Systems: At the time of my evaluation: Constitutional: No fever, no chills. No weakness, fatigue or lethargy. EENT: No headache. No dizziness. Lungs: No shortness of breath, cough, no sputum production. No wheezing. Cardiovascular: Reports chest pain, no lower extremity edema. No palpitations. No paroxysmal nocturnal dyspnea. No orthopnea. No lightheadedness or dizziness. No syncopal episodes. Abdominal: No abdominal pain. No nausea, vomiting. No diarrhea. No constipation. No bloody or tarry stools. Genitourinary: No dysuria.. No urinary retention. Musculoskeletal: No myalgias. No muscle weakness, no frequent falls. Reports right wrist and arm pain and swelling Integumentary: No wounds. No rash. No unusual bruising. Neurologic: No aphasia. No facial droop. No change in mentation. No head injury. No headache. Physical examination: Gen: This is a 53-year-old female. She is resting in bed and appears to be in no acute distress. VS: reviewed HEENT: Head is atraumatic, normocephalic. Pupils equal, round. Sclerae is anicteric. NECK: Supple. No JVD. . LUNGS: Clear to auscultation. No wheezes or rhonchi. No intercostal retractions. HEART: Regular rate and rhythm. No murmur. ABDOMEN: Soft No tenderness. EXTREMITIES: No pedal edema. No calf tenderness. NEUROLOGICAL: Patient is awake, alert and oriented x3. Assessment: Acute coronary syndrome status post stenting of the LAD on previous hospitalization Severe ischemic cardiomyopathy with EF of 25% Recent cardiac arrest secondary to ventricular tachycardia History of drug abuse History of alcohol use Active tobacco use and dependence Plan: Resume patient's home cardiac medications Discontinue lisinopril and start patient on Entresto 24-26 mg 1 twice daily tonight Obtain limited echocardiogram for EF Order LifeVest for patient to be obtained prior to discharge. Further recommendations to follow based upon clinical course Thank you kindly for this consultation. Nurse practitioner note has been reviewed, I agree with documented findings and plan of care. Patient was seen and examined. Past Medical History Past Medical History: Cancer, COPD, Fibromyalgia, GERD/Reflux, Hyperlipidemia, Hypertension, Osteoarthritis (OA), Pneumonia, Seizure Disorder, Thyroid Disorder Additional Past Medical History / Comment(s): LAST SEIZURE about 1 yr ago. needs to get back on tegretol .H-pylori, arthritis in multiple joints, compression fracture L1 with chronic pain, , hypothyroid, , past elevated liver function tests, L breast "lump" being monitored, she has had blurry vision tri focals./bed wetting. weak bladder Cervical CA with hysterectomy. Adrenal insufficency. heartburn worse, ? reoccurance of hiatal hernia. seasonal allergies. History of Any Multi-Drug Resistant Organisms: MRSA Date of last positivie culture/infection: 05/17/23 MDRO Source:: Right Foot Past Surgical History: Adenoidectomy, Breast Surgery, Cholecystectomy, Hysterectomy, Orthopedic Surgery, Tonsillectomy, Tubal Ligation Additional Past Surgical History / Comment(s): Bilateral breast implants, bilateral oophorectomy d/t cysts, EGDs, EGD with dilation, susu fundoplication with revision, R elbow surgery for MRSA infection, R rotator cuff repair, low back surgery (cemented), bilateral hip surgery for tendon/muscle repairs/screws in place. Cervical fusion C4,5,6,7 Past Anesthesia/Blood Transfusion Reactions: Family History of Problems w/ Anesthesia Additional Past Anesthesia/Blood Transfusion Reaction / Comment(s): MOTHER= A- FIB WITH ANESTHESIA. Past Psychological History: Anxiety, Bipolar, Depression Additional Psychological History / Comment(s): Pt resides with her 13 yr old grandson who has ADHD and for whom she has full custody. She does not drive, boyfriend or family drive her places. She has a nebulizer. Smoking Status: Current every day smoker Past Alcohol Use History: None Reported Additional Past Alcohol Use History / Comment(s): Pt started smoking in 1984,7- 13 cigarettes a day ,currently drinks a pint of vodka daily Past Drug Use History: None Reported Additional Drug Use History / Comment(s): Smoked marijuana as a young woman, none since. - Past Family History Father Family Medical History: Eye Disorder, Hypertension Additional Family Medical History / Comment(s): Father committed suicide at the age of 58yrs. He had glaucoma Brother(s) Family Medical History: No Reported History Additional Family Medical History / Comment(s): She has one brother that is a recovered alcoholic with no other major medical problems. Sister(s) Additional Family Medical History / Comment(s): Patient has one sister that suffers from depression and anxiety Mother Family Medical History: Cancer, Dementia, Diabetes Mellitus, Deep Vein Thrombosis (DVT), Eye Disorder, Hypertension Additional Family Medical History / Comment(s): Corneal transplant, breast cancer Medications and Allergies Home Medications Medication Instructions Recorded Confirmed Type oxyCODONE-APAP 10-325MG [Percocet 1 tab PO TID PRN 07/21/20 10/10/23 History 10-325 mg] Cyclobenzaprine [Flexeril] 10 mg PO TID PRN #15 tab 07/23/22 10/10/23 Rx diphenhydrAMINE HCL [Benadryl 25 mg PO TID 09/05/23 10/10/23 History Allergy] Melatonin 5 mg PO HS 10/02/23 10/10/23 History Naloxegol Oxalate [Movantik] 25 mg PO DAILY PRN 10/02/23 10/10/23 History Omeprazole [PriLOSEC] 40 mg PO DAILY 10/02/23 10/10/23 History Pantoprazole Sodium [Protonix] 40 mg PO DAILY 10/02/23 10/10/23 History lisinopriL [Zestril] 5 mg PO BID 10/02/23 10/10/23 History Aspirin EC [Ecotrin Low Dose] 81 mg PO DAILY 10/10/23 10/10/23 History Atorvastatin [Lipitor] 80 mg PO HS 10/10/23 10/10/23 History Clopidogrel [Plavix] 75 mg PO DAILY 10/10/23 10/10/23 History Metoprolol Tartrate [Lopressor] 25 mg PO BID 10/10/23 10/10/23 History Allergies Allergy/AdvReac Type Severity Reaction Status Date / Time Penicillins Allergy Severe Anaphylaxis Verified 10/10/23 14:21 Iodinated Contrast Media Allergy Unknown Rash/Hives Verified 10/10/23 14:21 [Iodinated Contrast Media - IV Dye] egg yolk Allergy Nausea Verified 10/10/23 14:21 mustard Allergy Nausea Verified 10/10/23 14:21 Sulfa (Sulfonamide Allergy Rash/Hives Verified 10/10/23 14:21 Antibiotics) sulfamethoxazole Allergy Rash/Hives Verified 10/10/23 14:21 [From Bactrim] trimethoprim [From Bactrim] Allergy Rash/Hives Verified 10/10/23 14:21 Physical Exam Vitals: Vital Signs Temp Pulse Pulse Resp BP BP Pulse Ox 10/11/23 08:06 99 10/11/23 08:00 98.1 F 78 18 146/78 98 10/11/23 04:00 98.3 F 74 18 144/87 98 10/11/23 02:00 90 18 10/11/23 00:00 99.7 F H 90 18 142/89 97 10/10/23 21:34 98.4 F 89 18 172/89 99 10/10/23 20:18 99.2 F 81 18 171/103 96 10/10/23 16:26 78 18 182/113 96 10/10/23 15:30 76 18 170/98 97 10/10/23 14:31 68 18 166/114 97 10/10/23 12:40 98.3 F 88 18 170/109 98 Intake and Output 10/10/23 10/11/23 10/11/23 22:59 06:59 14:59 Intake Total 118 Output Total 1 Balance 117 Intake: Oral 118 Output: Urine 1 Other: Voiding Method Toilet Toilet Weight 75.296 kg Results 10/10/23 13:08 10/10/23 13:08 Cardiac Enzymes 10/10/23 10/10/23 10/10/23 Range/Units 13:08 13:08 15:56 AST 33 (14-36) U/L Troponin I 1.080 H* 1.210 H* (0.000-0.034) ng/mL 10/10/23 Range/Units 19:15 AST (14-36) U/L Troponin I 1.030 H* (0.000-0.034) ng/mL Coagulation 10/10/23 Range/Units 13:08 PT 9.8 L (10.0-12.5) sec APTT 22.8 (22.0-30.0) sec CBC 10/10/23 Range/Units 13:08 WBC 8.1 (3.8-10.6) k/uL RBC 3.91 (3.80-5.40) m/uL Hgb 13.7 (11.4-16.0) gm/dL Hct 39.7 (34.0-46.0) % Plt Count 202 (150-450) k/uL Comprehensive Metabolic Panel 10/10/23 Range/Units 13:08 Sodium 139 (137-145) mmol/L Potassium 3.4 L (3.5-5.1) mmol/L Chloride 106 (98-107) mmol/L Carbon Dioxide 25 (22-30) mmol/L BUN 13 (7-17) mg/dL Creatinine 0.65 (0.52-1.04) mg/dL Glucose 99 (74-99) mg/dL Calcium 9.2 (8.4-10.2) mg/dL AST 33 (14-36) U/L ALT 32 (4-34) U/L Alkaline Phosphatase 102 (38-126) U/L Total Protein 6.2 L (6.3-8.2) g/dL Albumin 3.6 (3.5-5.0) g/dL Current Medications Generic Name Dose Route Start Last Admin Trade Name Freq PRN Reason Stop Dose Admin Aspirin 81 mg 10/11/23 09:00 10/11/23 08:11 Aspirin 81 Mg PO 81 mg DAILY [facility] Administration Atorvastatin Calcium 80 mg 10/10/23 22:45 10/10/23 23:50 Atorvastatin 80 Mg Tab PO Not Given HS [facility] Clopidogrel Bisulfate 75 mg 10/11/23 09:00 10/11/23 08:11 Clopidogrel 75 Mg Tab PO 75 mg DAILY [facility] Administration Cyclobenzaprine HCl 10 mg 10/10/23 22:43 10/10/23 23:49 Cyclobenzaprine 10 Mg Tab PO 10 mg TID PRN Administration Muscle Spasm Diphenhydramine HCl 25 mg 10/10/23 22:45 10/11/23 08:12 Diphenhydramine 25 Mg Cap PO Not Given TID MISAEL Lisinopril 5 mg 10/10/23 22:45 10/11/23 08:11 Lisinopril 5 Mg Tab PO 5 mg BID [facility] Administration Melatonin 5 mg 10/10/23 22:45 10/10/23 23:49 Melatonin 5 Mg Tablet PO 5 mg HS [facility] Administration Metoprolol Tartrate 25 mg 10/10/23 22:45 10/11/23 08:12 Metoprolol Tartrate 25 Mg Tab PO 25 mg BID [facility] Administration Nitroglycerin 0.4 mg 10/10/23 15:36 Nitroglycerin Sl Tabs 0.4 Mg Tab SUBLINGUAL Q5M PRN Chest Pain Nitroglycerin 1 inch 10/10/23 18:00 10/11/23 08:11 Nitroglycerin Oint 1 Inch/Gm Packet TOPICAL Not Given Q6HR [facility] Non-Formulary Medication 25 mg 10/11/23 09:00 Naloxegol Oxalate [Movantik] PO DAILY PRN Constipation Oxycodone/Acetaminophen 1 each 10/10/23 22:43 10/10/23 23:48 Oxycodone-Apap 10-325mg 1 Each Tab PO 1 each TID PRN Administration Pain Pantoprazole Sodium 40 mg 10/11/23 09:00 10/11/23 08:11 Pantoprazole 40 Mg Tablet PO 40 mg DAILY MISAEL Administration Intake and Output 10/10/23 10/11/23 10/11/23 22:59 06:59 14:59 Intake Total 118 Output Total 1 Balance 117 Intake: Oral 118 Output: Urine 1 Other: Voiding Method Toilet Toilet Weight 75.296 kg 10/10/23 13:08 10/10/23 13:08
[2023-10-11] MEDS ORDERED: ALPRAZolam 0.25 MG TAB PO PRN (11:40)
[2023-10-11] MEDS: oxyCODONE-APAP 10-325MG 1 EACH TAB PO PRN ×2 (11:50→20:20)
[2023-10-11] MEDS: busPIRone HCl 10 MG TAB PO SCH ×2 (11:51→20:20)
[2023-10-11 15:04] LABS: Chol/HDL Ratio 3.33 Ratio; LDL Cholesterol,Calculated 91.3 mg/dL (0.0-131.0)
--- NOTE | 2023-10-11 16:16 | P.HPIM ---
History of Present Illness H&P Date: 10/11/23 Chief Complaint: Chest pain This is a 53-year-old female with past medical history significant for recent cardiac arrest secondary to ventricular tachycardia, 10/06/2023, EKG reporting ischemic anterior ST changes, status post cardiac catheterization reported critical disease of the LAD and intermediate disease of the RCA and left circumflex, with successful stenting of the LAD. EF reported at 25-30% with life vest recommended. On intercell connector placer of October 09, patient signed out AMA. PCP phoned patient, advising her to return to the hospital. Patient complied. Currently complaining of midsternal and right arm tenderness. Reports right arm pain with significant swelling prior to admission. Venous Doppler of right arm reported no evidence for DVT. Positive diet intake, denies nausea vomiting. Reports exertional shortness of breath. Requesting something for her anxiety. Evaluated by cardiology, EKG reviewed. LifeVest being arranged. Medications adjustments noted including initiation of entresto. Chest x-ray reported no acute cardiopulmonary disease/process. Afebrile, T-max 99.7, normal WBC, hemoglobin 13.7, platelets 202, MCV 101.7, INR 0.9, potassium 3.4, magnesium 1.7, renal function stable. Troponin is 1.08, 1.21, 1.03. Review of Systems ROS Statement: Those systems with pertinent positive or pertinent negative responses have been documented in the HPI. ROS Other: All systems not noted in ROS Statement are negative. Past Medical History Past Medical History: Cancer, COPD, Fibromyalgia, GERD/Reflux, Hyperlipidemia, Hypertension, Osteoarthritis (OA), Pneumonia, Seizure Disorder, Thyroid Disorder Additional Past Medical History / Comment(s): LAST SEIZURE about 1 yr ago. needs to get back on tegretol .H-pylori, arthritis in multiple joints, compression fracture L1 with chronic pain, , hypothyroid, , past elevated liver function tests, L breast "lump" being monitored, she has had blurry vision tri focals./bed wetting. weak bladder Cervical CA with hysterectomy. Adrenal insufficency. heartburn worse, ? reoccurance of hiatal hernia. seasonal allergies. History of Any Multi-Drug Resistant Organisms: MRSA Date of last positivie culture/infection: 05/17/23 MDRO Source:: Right Foot Past Surgical History: Adenoidectomy, Breast Surgery, Cholecystectomy, Hysterectomy, Orthopedic Surgery, Tonsillectomy, Tubal Ligation Additional Past Surgical History / Comment(s): Bilateral breast implants, bilateral oophorectomy d/t cysts, EGDs, EGD with dilation, susu fundoplication with revision, R elbow surgery for MRSA infection, R rotator cuff repair, low back surgery (cemented), bilateral hip surgery for tendon/muscle repairs/screws in place. Cervical fusion C4,5,6,7 Past Anesthesia/Blood Transfusion Reactions: Family History of Problems w/ Anes thesia Additional Past Anesthesia/Blood Transfusion Reaction / Comment(s): MOTHER= A- FIB WITH ANESTHESIA. Past Psychological History: Anxiety, Bipolar, Depression Additional Psychological History / Comment(s): Pt resides with her 13 yr old grandson who has ADHD and for whom she has full custody. She does not drive, boyfriend or family drive her places. She has a nebulizer. Smoking Status: Current every day smoker Past Alcohol Use History: None Reported Additional Past Alcohol Use History / Comment(s): Pt started smoking in 1984,7- 13 cigarettes a day ,currently drinks a pint of vodka daily Past Drug Use History: None Reported Additional Drug Use History / Comment(s): Smoked marijuana as a young woman, none since. - Past Family History Father Family Medical History: Eye Disorder, Hypertension Additional Family Medical History / Comment(s): Father committed suicide at the age of 58yrs. He had glaucoma Brother(s) Family Medical History: No Reported History Additional Family Medical History / Comment(s): She has one brother that is a recovered alcoholic with no other major medical problems. Sister(s) Additional Family Medical History / Comment(s): Patient has one sister that suffers from depression and anxiety Mother Family Medical History: Cancer, Dementia, Diabetes Mellitus, Deep Vein Thrombosis (DVT), Eye Disorder, Hypertension Additional Family Medical History / Comment(s): Corneal transplant, breast cancer Medications and Allergies Home Medications Medication Instructions Recorded Confirmed Type oxyCODONE-APAP 10-325MG [Percocet 1 tab PO TID PRN 07/21/20 10/10/23 History 10-325 mg] Cyclobenzaprine [Flexeril] 10 mg PO TID PRN #15 tab 07/23/22 10/10/23 Rx diphenhydrAMINE HCL [Benadryl 25 mg PO TID 09/05/23 10/10/23 History Allergy] Melatonin 5 mg PO HS 10/02/23 10/10/23 History Naloxegol Oxalate [Movantik] 25 mg PO DAILY PRN 10/02/23 10/10/23 History Omeprazole [PriLOSEC] 40 mg PO DAILY 10/02/23 10/10/23 History Pantoprazole Sodium [Protonix] 40 mg PO DAILY 10/02/23 10/10/23 History lisinopriL [Zestril] 5 mg PO BID 10/02/23 10/10/23 History Aspirin EC [Ecotrin Low Dose] 81 mg PO DAILY 10/10/23 10/10/23 History Atorvastatin [Lipitor] 80 mg PO HS 10/10/23 10/10/23 History Clopidogrel [Plavix] 75 mg PO DAILY 10/10/23 10/10/23 History Metoprolol Tartrate [Lopressor] 25 mg PO BID 10/10/23 10/10/23 History Allergies Allergy/AdvReac Type Severity Reaction Status Date / Time Penicillins Allergy Severe Anaphylaxis Verified 10/10/23 14:21 Iodinated Contrast Media Allergy Unknown Rash/Hives Verified 10/10/23 14:21 [Iodinated Contrast Media - IV Dye] egg yolk Allergy Nausea Verified 10/10/23 14:21 mustard Allergy Nausea Verified 10/10/23 14:21 Sulfa (Sulfonamide Allergy Rash/Hives Verified 10/10/23 14:21 Antibiotics) sulfamethoxazole Allergy Rash/Hives Verified 10/10/23 14:21 [From Bactrim] trimethoprim [From Bactrim] Allergy Rash/Hives Verified 10/10/23 14:21 Physical Exam Vitals: Vital Signs Temp Pulse Pulse Resp BP BP Pulse Ox 10/11/23 08:06 99 10/11/23 08:00 98.1 F 78 18 146/78 98 10/11/23 04:00 98.3 F 74 18 144/87 98 10/11/23 02:00 90 18 10/11/23 00:00 99.7 F H 90 18 142/89 97 10/10/23 21:34 98.4 F 89 18 172/89 99 10/10/23 20:18 99.2 F 81 18 171/103 96 10/10/23 16:26 78 18 182/113 96 10/10/23 15:30 76 18 170/98 97 10/10/23 14:31 68 18 166/114 97 10/10/23 12:40 98.3 F 88 18 170/109 98 Intake and Output 10/10/23 10/11/23 10/11/23 22:59 06:59 14:59 Intake Total 118 Output Total 1 Balance 117 Intake: Oral 118 Output: Urine 1 Other: Voiding Method Toilet Toilet Toilet Weight 75.296 kg PHYSICAL EXAM: VITAL SIGNS: [As above] GENERAL: Alert and oriented 3, Sitting up in bed, no acute distress HEENT: Normocephalic, Conjunctivae normal. eyes normal. NECK: Supple, No JVD. No thyroid enlargement. No LNs CARDIOVASCULAR: S1, S2 regular. No murmur RESPIRATION: Unlabored, equal air entry, Breath sounds diminished in the bases. No rhonchi or crackles. No bronchial breathing. ABDOMEN: Soft, nontender . No guarding. no masses palpable. No ascites, No hepatosplenomegaly.Bowel sounds heard. EXTREMITIES: Right arm ecchymosis, No edema. no swelling, no pedal edema.tenderness NERVOUS SYSTEM: Cranial N 2-12 grossly normal. Moves all 4 limbs. Diffuse weakness No focal deficits. Strength and sensation grossly intact.. Skin: Warm and dry, multiple tattoos scattered Results CBC & Chem 7: 10/10/23 13:08 10/10/23 13:08 Labs: Abnormal Lab Results - Last 24 Hours (Table) 10/10/23 10/10/23 10/10/23 Range/Units 13:08 13:08 13:08 MCV 101.7 H (80.0-100.0) fL MCH 35.2 H (25.0-35.0) pg PT 9.8 L (10.0-12.5) sec Potassium 3.4 L (3.5-5.1) mmol/L Troponin I (0.000-0.034) ng/mL Total Protein 6.2 L (6.3-8.2) g/dL 10/10/23 10/10/23 10/10/23 Range/Units 13:08 15:56 19:15 MCV (80.0-100.0) fL MCH (25.0-35.0) pg PT (10.0-12.5) sec Potassium (3.5-5.1) mmol/L Troponin I 1.080 H* 1.210 H* 1.030 H* (0.000-0.034) ng/mL Total Protein (6.3-8.2) g/dL Thrombosis Risk Factor Assmnt - Choose All That Apply Any of the Below Risk Factors Present?: No Assessment and Plan Assessment: Acute coronary syndrome, Recent cardiopulmonary arrest, reported ventricular fibrillation per EMS status post cardiac cath with stenting of the LAD COPD Ongoing nicotine dependence Hypertension Hyperlipidemia Gastroesophageal reflux disease Diabetes mellitus type 2 Seizure disorder Hypothyroidism Alcohol abuse Bipolar, depression, anxiety Plan: Continue on current medication regime ,monitoring and symptomatic treatment. Evaluated by cardiology, medication adjustments noted, repeat limited echocardiogram pending. Arranging Life vest . Discharge planning in progress, pending final DC recommendations and clearance per cardiology. The impression and plan of care has been dictated as directed. : I performed a history and examination of this patient, discussed the same with the dictator. I agree with the dictator's note ,documented as a scribe. Any additional findings or plans will be noted.
[2023-10-11] MEDS: ATORVASTATIN 80 MG TAB PO SCH (20:20)
[2023-10-11] MEDS: MELATONIN 5 MG TABLET PO SCH (20:20)
[2023-10-11 22:45] LABS: Magnesium 1.7 mg/dL (1.6-2.3); Potassium 3.8 mmol/L (3.5-5.1)
[2023-10-12] MEDS: CLOPIDOGREL 75 MG TAB PO SCH (08:00)
[2023-10-12] MEDS: PANTOPRAZOLE 40 MG TABLET PO SCH (08:00)
[2023-10-12] MEDS: ASPIRIN 81 MG PO SCH (08:00)
[2023-10-12] MEDS: oxyCODONE-APAP 10-325MG 1 EACH TAB PO PRN (08:00)
[2023-10-12] MEDS: METOPROLOL TARTRATE 25 MG TAB PO SCH (08:03)
[2023-10-12] MEDS: diphenhydrAMINE 25 MG CAP PO SCH (08:03)
[2023-10-12] MEDS: busPIRone HCl 10 MG TAB PO SCH (08:03)
[2023-10-12 08:29] VITALS: BP 151/90; PULSE 76; RESP 22; TEMP 98.4
--- NOTE | 2023-10-12 10:15 | CA ---
Transthoracic Echo Report Name: Renay Meneses Age: 53 Gender: F : 1970 Exam Date: 10/11/2023 13:26 Exam Location: [facility] Ht (in): 71 Wt (lb): 166 Ordering Physician: Myrtle Gregory Attending/Referring Phys: [id number], Bri [employer] Developer Brittany García RDCS Procedure CPT: Indications: EF Cardiac Hx: Technical Quality: Fair Contrast 1: Definity Total Dose (mL): 2 Contrast 2: Total Dose (mL): MEASUREMENTS (Male / Female) Normal Values 2D ECHO LV Diastolic Diameter PLAX 4.3 cm 4.2 - 5.9 / 3.9 - 5.3 cm LV Systolic Diameter PLAX 3.1 cm IVS Diastolic Thickness 1.3 cm 0.6 - 1.0 / 0.6 - 0.9 cm LVPW Diastolic Thickness 1.3 cm 0.6 - 1.0 / 0.6 - 0.9 cm LV Relative Wall Thickness 0.6 FINDINGS Left Ventricle Moderately increased left ventricular wall thickness. Left ventricular cavity size normal. Left ventricular ejection fraction is estimated at 45-50 %. Right Ventricle Right Atrium Left Atrium Mitral Valve Aortic Valve Tricuspid Valve Pulmonic Valve Pericardium No pericardial effusion. Aorta CONCLUSIONS Mild LV dysfunction, mild septal hypokinesis Improvement in LV systolic function from previous study Previewed by: Dr. Tanmay Peralta MD (Electronically Signed) Final Date: 12 October 2023 10:14
--- NOTE | 2023-10-12 15:39 | P.PN ---
Subjective Progress Note Date: 10/12/23 Consult reason: chest pain History of present illness: History of present illness: This is a 53-year-old female presented to the hospital on October 06 secondary to cardiac arrest secondary to ventricular tachycardia underwent CPR both by significant other and EMS, defibrillated x 3 with epinephrine and amiodarone and was intubated, admitted to the intensive care unit. EKG showed a right bundle branch block with mild ST elevation in V1 and V2 and T wave inversions in V1 through V3. Patient subsequently underwent cardiac catheterization which reve aled critical disease involving proximal LAD and successful stenting of the LAD as well. Patient was started on dual antiplatelet therapy as well as statin, ERIBERTO inhibitor and beta-angelica. Patient's echocardiogram revealed EF of 25 to 30%. Patient was advised that a LifeVest would be needed prior to her discharge but on MondayOctober 09, patient signed out AMA. She has subsequently been contacted by her PCP and requested that she come back into the hospital and thus we are seeing her. Patient is complaining of significant pain to her right arm where access was obtained for cardiac cath. She states it is very sore and swollen. Patient denies having shortness of breath no lower extremity edema. Patient is still actively smoking but states she will quit. She denies any alcohol use. EKG sinus rhythm with Q waves in the anterior leads Chest x-ray: No acute finding Ultrasound of the right upper extremity negative for DVT WBC 8.1, hemoglobin 13.7, platelet count 202. INR 0.9. Sodium 139, potassium 3.4, creatinine 0.65. Troponins 1.08, 1.21, 1.03. Magnesium 1.7. Liver function tests are normal. Home cardiac medications: Aspirin 81 mg daily, atorvastatin 80 mg daily, Plavix 75 mg daily, lisinopril 5 mg twice daily, Lopressor 25 mg twice daily. 10/12 Patient was cleared for discharge yesterday afternoon as EF came back improved from previously and the Life Vest was canceled. No new cardiac concerns from the patient. No additional medication changes. Limited echocardiogram revealed EF of 45 to 50%. Physical examination: Gen: This is a 53-year-old female. She is resting in bed and appears to be in no acute distress. VS: reviewed HEENT: Head is atraumatic, normocephalic. Pupils equal, round. Sclerae is anicteric. LUNGS: Clear to auscultation. No wheezes or rhonchi. No intercostal retractions. HEART: Regular rate and rhythm. No murmur. EXTREMITIES: No pedal edema. No calf tenderness. NEUROLOGICAL: Patient is awake, alert and oriented x3. Assessment: Acute coronary syndrome status post stenting of the LAD on previous hospitalization Severe ischemic cardiomyopathy with EF of 25% improved to 45% Recent cardiac arrest secondary to ventricular tachycardia History of drug abuse History of alcohol use Active tobacco use and dependence Plan: Resume patient's home cardiac medications Continue patient on Entresto 24-26 mg 1 twice daily tonight Patient is cleared for discharge from cardiology and will follow-up with Dr. Peralta in 1 to 2 weeks. Nurse practitioner note has been reviewed, I agree with documented findings and plan of care. Patient was seen and examined. Objective - Vital Signs Vital signs: Vital Signs Temp 98.4 F 10/12/23 08:00 Pulse 76 10/12/23 08:00 Resp 22 10/12/23 08:00 BP 151/90 10/12/23 08:00 Pulse Ox 99 10/12/23 08:00 FiO2 Intake & Output 10/11/23 10/12/23 10/12/23 18:59 06:59 18:59 Intake Total 346 120 120 Output Total 1 Balance 345 120 120 Intake: Oral 346 120 120 Output: Urine 1 Other: Voiding Method Toilet Toilet # Voids 2 2 0 - Labs CBC & Chem 7: 10/10/23 13:08 10/11/23 22:24
--- NOTE | 2023-10-12 15:46 | P.DS ---
Providers Date of admission: 10/10/23 15:37 Expected date of discharge: 10/12/23 Attending physician: Albert Cerna MD Consults: 10/10/23 15:36 Consult Physician Urgent Consulting Provider: [facility] Consult Reason/Comments: Atypical chest pain Do you want consulting provider notified?: Yes Primary care physician: Albert Cerna MD Hospital Course: Final Diagnoses: Acute coronary syndrome, Recent cardiopulmonary arrest, reported ventricular fibrillation per EMS status post cardiac cath with stenting of the LAD. Severe ischemic cardiomyopathy with EF of 25% improved to 45%. COPD Ongoing nicotine dependence Hypertension Hyperlipidemia Gastroesophageal reflux disease Diabetes mellitus type 2 Seizure disorder Hypothyroidism Alcohol abuse Bipolar, depression, anxiety Hospital course:This is a 53-year-old female with past medical history significant for recent cardiac arrest secondary to ventricular tachycardia, 10/06/2023, EKG reporting ischemic anterior ST changes, status post cardiac catheterization reported critical disease of the LAD and intermediate disease of the RCA and left circumflex, with successful stenting of the LAD. EF reported at 25-30% with life vest recommended. On general cargo clerk of October 09, patient signed out AMA. PCP phoned patient, advising her to return to the hospital. Patient complied. Currently complaining of midsternal and right arm tenderness. Reports right arm pain with significant swelling prior to admission. Venous Doppler of right arm reported no evidence for DVT. Positive diet intake, denies nausea vomiting. Reports exertional shortness of breath. Requesting something for her anxiety. Evaluated by cardiology, EKG reviewed. LifeVest being arranged. Medications adjustments noted including initiation of entresto. Chest x-ray reported no acute cardiopulmonary disease/process. Afebrile, T-max 99.7, normal WBC, hemoglobin 13.7, platelets 202, MCV 101.7, INR 0.9, potassium 3.4, magnesium 1.7, renal function stable. Troponin is 1.08, 1.21, 1.03. LifeVest canceled as physical reported improved EF of 45-50%. Entresto initiated. Cleared by cardiology for discharge. Denies chest pain, palpitations or shortness of breath. Patient will be discharged home today in a stable condition with guarded prognosis. The impression and plan of care has been dictated as directed. : I performed a history and examination of this patient, discussed the same with the dictator. I agree with the dictator's note ,documented as a scribe. Any additional findings or plans will be noted. Patient Condition at Discharge: Stable Plan - Discharge Summary Discharge Rx Participant: No New Discharge Prescriptions: New busPIRone HCl [Buspar] 10 mg PO BID #60 tab Sacubitril/Valsartan [Entresto 24 mg-26 mg Tablet] 1 each PO BID #60 tab Continue oxyCODONE-APAP 10-325MG [Percocet 10-325 mg] 1 tab PO TID PRN PRN Reason: Pain Cyclobenzaprine [Flexeril] 10 mg PO TID PRN #15 tab PRN Reason: Muscle Spasm Melatonin 5 mg PO HS Omeprazole [PriLOSEC] 40 mg PO DAILY Clopidogrel [Plavix] 75 mg PO DAILY Atorvastatin [Lipitor] 80 mg PO HS diphenhydrAMINE HCL [Benadryl] 25 mg PO TID Pantoprazole Sodium [Protonix] 40 mg PO DAILY Naloxegol Oxalate [Movantik] 25 mg PO DAILY PRN PRN Reason: Constipation Metoprolol Tartrate [Lopressor] 25 mg PO BID Aspirin EC [Ecotrin Low Dose] 81 mg PO DAILY Discontinued lisinopriL [Zestril] 5 mg PO BID Discharge Medication List oxyCODONE-APAP 10-325MG [Percocet 10-325 mg] 1 tab PO TID PRN 07/21/20 [History] Cyclobenzaprine [Flexeril] 10 mg PO TID PRN #15 tab 07/23/22 [Rx] diphenhydrAMINE HCL [Benadryl] 25 mg PO TID 09/05/23 [History] Melatonin 5 mg PO HS 10/02/23 [History] Naloxegol Oxalate [Movantik] 25 mg PO DAILY PRN 10/02/23 [History] Omeprazole [PriLOSEC] 40 mg PO DAILY 10/02/23 [History] Pantoprazole Sodium [Protonix] 40 mg PO DAILY 10/02/23 [History] Aspirin EC [Ecotrin Low Dose] 81 mg PO DAILY 10/10/23 [History] Atorvastatin [Lipitor] 80 mg PO HS 10/10/23 [History] Clopidogrel [Plavix] 75 mg PO DAILY 10/10/23 [History] Metoprolol Tartrate [Lopressor] 25 mg PO BID 10/10/23 [History] Sacubitril/Valsartan [Entresto 24 mg-26 mg Tablet] 1 each PO BID #60 tab 10/12/23 [Rx] busPIRone HCl [Buspar] 10 mg PO BID #60 tab 10/12/23 [Rx] Follow up Appointment(s)/Referral(s): Tanmay Peralta MD [STAFF PHYSICIAN] - 1 Week Albert Cerna MD [Primary Care Provider] - 10/13/23 9:00 am (at [facility]) Patient Instructions/Handouts: Heart Attack (DC), Chest Pain (DC) Discharge Disposition: HOME SELF-CARE
[2023-10-12] MEDS ORDERED: SACUBITRIL/VALSARTAN 24 MG-26 MG TABLET PO SCH (21:00)
== END 2023-10-12 13:53 | disposition home or self-care (01) | DRG 315 ==
LOC: EC 12:37 → 3SCARD 15:37
PROVIDERS: ADMIT Family Medicine; ATTEND Family Medicine
DX: I42.0 Dilated cardiomyopathy (principal); I24.9 Acute ischemic heart disease, unspecified; M48.56XA Collapsed vertebra, not elsewhere classified, lumbar region, initial encounter for fracture; F31.9 Bipolar disorder, unspecified; F41.9 Anxiety disorder, unspecified; I10 Essential (primary) hypertension; H40.9 Unspecified glaucoma; G40.909 Epilepsy, unspecified, not intractable, without status epilepticus; I25.5 Ischemic cardiomyopathy; F19.11 Other psychoactive substance abuse, in remission; I45.10 Unspecified right bundle-branch block; G89.29 Other chronic pain; J44.9 Chronic obstructive pulmonary disease, unspecified; M15.9 Polyosteoarthritis, unspecified; Z86.74 Personal history of sudden cardiac arrest; Z87.01 Personal history of pneumonia (recurrent); K21.9 Gastro-esophageal reflux disease without esophagitis; M79.7 Fibromyalgia; Z95.828 Presence of other vascular implants and grafts; Z79.02 Long term (current) use of antithrombotics/antiplatelets; Z79.82 Long term (current) use of aspirin; Z79.899 Other long term (current) drug therapy; Z82.49 Family history of ischemic heart disease and other diseases of the circulatory system; Z83.3 Family history of diabetes mellitus; Z81.8 Family history of other mental and behavioral disorders; Z88.0 Allergy status to penicillin; Z88.2 Allergy status to sulfonamides; Z91.041 Radiographic dye allergy status; Z94.7 Corneal transplant status; Z90.722 Acquired absence of ovaries, bilateral; Z86.14 Personal history of Methicillin resistant Staphylococcus aureus infection; Z98.1 Arthrodesis status
CPT/HCPCS: 36415; 71046; 80053; 80061; 83735; 84132; 84484; 85025; 85610; 85730; 93005; 93308; 94760; 96374; 96375; 96376; 99285

== ENCOUNTER → 2023-11-06 | Outpatient (CLI) | payer MEDICARE, OTHER ==
--- NOTE | 2023-11-06 11:52 | USB ---
Reason for Exam: Clinical finding. Patient History: Menarche at age 13. First Full-Term at age 19. Left ovary removed at age 27. Right ovary removed at age 27. Hysterectomy at age 27. Postmenopausal. Endometrial cancer, age 27. Patient used Estrogen for 6 years. Bilateral Implants. Maternal grandmother had breast cancer, age 50. Maternal aunt had breast cancer under age 50. Mother had breast cancer, age 50. Risk Values: Angelic 5 year model risk: 2.0%. NCI Lifetime model risk: 15.5%. Prior Study Comparison: 09/15/2017 Screening Mammogram, [facility]. 05/20/2021 Bilateral Screening Mammogram, [facility]. 10/17/2022 Bilateral MG 3D diag mammo w/cad SHAWANDA, [facility]. 10/17/2022 Left US breast limited LT, [facility]. Findings: The whole breast of both breasts, the axilla of both breasts and the retroareolar of both breasts were scanned. A complete US of all four quadrants of the bilateral breasts, axilla, and retro-areolar region were reviewed. No solid or cystic masses are identified. Dense tissue is present throughout. Breast implants noted. No axillary adenopathy.A complete US of all four quadrants of the bilateral breasts, axilla, and retro-areolar region were reviewed. In the left breast at the 11:00 position, 5 cm from the nipple, there is a small 8 x 6 x 3 mm debris-filled cyst or suspicious cluster. No other solid or cystic masses are identified. Dense tissue is present throughout. Breast implants noted. No axillary adenopathy. Overall Assessment: Incomplete: need additional imaging evaluation, BI-RAD 0 Management: Diagnostic Mammogram of both breasts. In time for the patient's annual exam. Electronically signed and approved by: Ana Moore M.D. Radiologist
== END | disposition home or self-care (01) ==
LOC: RADUSWWP 10:39
PROVIDERS: ATTEND Family Medicine
DX: R92.8 Other abnormal and inconclusive findings on diagnostic imaging of breast (principal); Z78.0 Asymptomatic menopausal state; Z80.3 Family history of malignant neoplasm of breast

== ENCOUNTER → 2023-12-18 | Outpatient (CLI) | payer MEDICARE, OTHER ==
--- NOTE | 2023-12-18 08:04 | MM ---
Reason for Exam: Follow-up at short interval from prior study. Last mammogram was performed 1 year(s) and 2 month(s) ago. Patient History: Menarche at age 13. First Full-Term at age 19. Left ovary removed at age 27. Right ovary removed at age 27. Hysterectomy at age 27. Postmenopausal. Endometrial cancer, age 27. Patient used Estrogen for 6 years. Bilateral Implants. Maternal grandmother had breast cancer, age 50. Maternal aunt had breast cancer under age 50. Mother had breast cancer, age 50. Risk Values: Angelic 5 year model risk: 2.0%. NCI Lifetime model risk: 15.5%. Prior Study Comparison: 02/26/2019 Bilateral Diagnostic Ultrasound, [facility]. 05/20/2021 Bilateral Screening Mammogram, [facility]. 10/17/2022 Bilateral MG 3D diag mammo w/cad SHAWANDA, [facility]. 10/17/2022 Left US breast limited LT, [facility]. 11/06/2023 Bilateral US breast BILAT, [facility]. Tissue Density: The breasts are heterogeneously dense, which may obscure small masses. Findings: Analyzed By CAD. The pattern is symmetrical. Bilateral breast implants are present. No significant interval change is evident. No suspicious groups of microcalcifications, spiculated or lobular masses, architectural distortion or other secondary signs of malignancy are mammographically apparent. Overall Assessment: Benign, BI-RAD 2 Management: Screening Mammogram of both breasts in 1 year. A negative mammogram report should not preclude additional follow up of suspicious palpable abnormalities. Patient should continue monthly self breast exam. A clinical breast exam by your physician is recommended on an annual basis and results should be correlated with mammographic findings. Electronically signed and approved by: Samson Schmidt D.O. Radiologis
== END | disposition home or self-care (01) ==
LOC: RADMAMWWP 07:17
PROVIDERS: ATTEND Family Medicine
DX: R92.333 Mammographic heterogeneous density, bilateral breasts (principal); N63.10 Unspecified lump in the right breast, unspecified quadrant; N63.20 Unspecified lump in the left breast, unspecified quadrant; Z80.3 Family history of malignant neoplasm of breast; Z78.0 Asymptomatic menopausal state; Z98.82 Breast implant status
CPT/HCPCS: 77066; G0279; 77062

== ENCOUNTER 2024-04-07 15:53 | Emergency (ER) | payer MEDICARE, OTHER ==
[2024-04-07 15:56] VITALS: RESP 18
[2024-04-07 17:28] LABS: Appearance,Urine Clear (Clear); Bilirubin,Urine Negative (Negative); Blood,Urine Negative (Negative); Color,Urine Colorless; Glucose,Urine (UA) Negative (Negative); Ketones,Urine Negative (Negative); Leukocyte Esterase,Urine Negative (Negative); Nitrite,Urine Negative (Negative); Protein,Urine Negative (Negative); Specific Gravity,Urine 1.007 (1.001-1.035); Urobilinogen,Urine <2.0 mg/dL (<2.0)
--- NOTE | 2024-04-07 17:55 | CT ---
EXAMINATION TYPE: CT brain cspine wo con CT DLP: 1361 mGycm, Automated exposure control for dose reduction was used. DATE OF EXAM: 04/07/2024 5:19 PM COMPARISON: None. CLINICAL INDICATION:Female, 54 years old with history of pain; NECK PAIN. NO INJURY TECHNIQUE: Brain: Multiple axial CT images of the brain were obtained without IV contrast. Cspine: Axial CT images from the skull base to the inferior aspect of T2 we obtained without intraven ous contrast. Coronal and sagittal reformatted images were also reviewed. . FINDINGS: Brain: Extra-axial spaces: No abnormal extra-axial fluid collections. Ventricular system: Within normal limits Cerebral parenchyma: No acute intraparenchymal hemorrhage or mass effect. The moss-white junction is well differentiated. Cerebellum: Unremarkable. Mass effect: No evidence of midline shift. Intracranial vasculature: unremarkable Soft tissues: Normal. Calvarium/osseous structures: No depressed skull fracture. Paranasal sinuses and mastoid air cells: Clear. Visualized orbits: Orbital contents are intact. Cervical spine: Fracture: None. Osseous structures: Multilevel degenerative disc disease changes with endplate spurring and disc oste ophyte complex's. Fixation hardware at C4 C5 C6 and C7. The Vertebral alignment: Within normal limits. Spinal canal/Neural Foramina: No evidence of significant spinal canal narrowing. No evidence for sign ificant neural foraminal stenosis. Neck soft tissues: Prevertebral soft tissues are within normal limits. Other: The airway is patent. The lung apices are clear. IMPRESSION: 1. No acute intracranial process. 2. Fixation changes to the cervical spine appear intact. 3. No evidence of cervical spine fracture. 4. Mild multilevel degenerative disc disease.
[2024-04-07 18:13] LABS: Basophils # (A) 0.1 k/uL (0-0.2); Basophils % (A) 1 %; Eosinophils # (A) 0.2 k/uL (0-0.7); Eosinophils % (A) 2 %; HCT 45.1 % (34.0-46.0); HGB 14.2 gm/dL (11.4-16.0); Lymphocytes % (A) 41 %; MCH 32.6 pg (25.0-35.0); MCHC 31.4 g/dL (31.0-37.0); MCV 103.9 fL (80.0-100.0); Macrocytosis Slight; Mean Platelet Volume 7.9; Monocytes # (A) 0.5 k/uL (0-1.0); Monocytes % (A) 5 %; Neutrophils # (A) 4.8 k/uL (1.3-7.7); Neutrophils % (A) 49 %; Platelet Count 259 k/uL (150-450); RBC 4.34 m/uL (3.80-5.40); RDW 13.6 % (11.5-15.5); WBC 9.7 k/uL (3.8-10.6)
[2024-04-07 18:29] LABS: ALT 27 U/L (4-34); AST 26 U/L (14-36); African American GFR (CKD) 83 (>60 ml/min/1.73 sqM); Albumin 4.7 g/dL (3.5-5.0); Alkaline Phosphatase 107 U/L (38-126); Anion Gap 10 mmol/L; Blood Urea Nitrogen 24 mg/dL (7-17); Calcium 9.8 mg/dL (8.4-10.2); Carbon Dioxide 20 mmol/L (22-30); Chloride 108 mmol/L (98-107); Glucose 76 mg/dL (74-99); Non-African American GFR(CKD) 72 (>60 ml/min/1.73 sqM); Potassium 4.2 mmol/L (3.5-5.1); Sodium 138 mmol/L (137-145); Total Bilirubin 0.4 mg/dL (0.2-1.3); Total Protein 7.5 g/dL (6.3-8.2)
[2024-04-07 18:49] VITALS: BP 155/98; PULSE 73; TEMP 98.3
--- NOTE | 2024-04-07 18:52 | ED ---
General Adult HPI - General Chief complaint: Neck Pain/Injury Stated complaint: neck pain Time Seen by Provider: 04/07/24 16:07 Source: patient, RN notes reviewed Mode of arrival: ambulatory Limitations: no limitations - History of Present Illness Initial comments: 53 year old female presents to the emergency department for evaluation of neck pain. Patient reports symptoms x 10 days. Patient states that it is in the middle of her neck radiating to the right side of her neck. She denies any known injury. She currently follows with pain management. She denies recent fever, illness, injury. Denies chest pain, shortness of breath. - Related Data Home Medications Medication Instructions Recorded Confirmed oxyCODONE-APAP 10-325MG [Percocet 1 tab PO TID PRN 07/21/20 10/10/23 10-325 mg] diphenhydrAMINE HCL [Benadryl] 25 mg PO TID 09/05/23 10/10/23 Melatonin 5 mg PO HS 10/02/23 10/10/23 Naloxegol Oxalate [Movantik] 25 mg PO DAILY PRN 10/02/23 10/10/23 Omeprazole [PriLOSEC] 40 mg PO DAILY 10/02/23 10/10/23 Pantoprazole Sodium [Protonix] 40 mg PO DAILY 10/02/23 10/10/23 Aspirin EC [Ecotrin Low Dose] 81 mg PO DAILY 10/10/23 10/10/23 Atorvastatin [Lipitor] 80 mg PO HS 10/10/23 10/10/23 Clopidogrel [Plavix] 75 mg PO DAILY 10/10/23 10/10/23 Metoprolol Tartrate [Lopressor] 25 mg PO BID 10/10/23 10/10/23 Previous Rx's Medication Instructions Recorded Cyclobenzaprine [Flexeril] 10 mg PO TID PRN #15 tab 07/23/22 Sacubitril/Valsartan [Entresto 24 1 each PO BID #60 tab 10/12/23 mg-26 mg Tablet] busPIRone HCl [Buspar] 10 mg PO BID #60 tab 10/12/23 Allergies Allergy/AdvReac Type Severity Reaction Status Date / Time Penicillins Allergy Severe Anaphylaxis Verified 04/07/24 15:56 Iodinated Contrast Media Allergy Unknown Rash/Hives Verified 04/07/24 15:56 [Iodinated Contrast Media - IV Dye] egg yolk Allergy Nausea Verified 04/07/24 15:56 mustard Allergy Nausea Verified 04/07/24 15:56 Sulfa (Sulfonamide Allergy Rash/Hives Verified 04/07/24 15:56 Antibiotics) sulfamethoxazole Allergy Rash/Hives Verified 04/07/24 15:56 [From Bactrim] trimethoprim [From Bactrim] Allergy Rash/Hives Verified 04/07/24 15:56 Review of Systems ROS Statement: Those systems with pertinent positive or pertinent negative responses have been documented in the HPI. ROS Other: All systems not noted in ROS Statement are negative. Past Medical History Past Medical History: Cancer, COPD, Fibromyalgia, GERD/Reflux, Hyperlipidemia, Hypertension, Osteoarthritis (OA), Pneumonia, Seizure Disorder, Thyroid Disorder Additional Past Medical History / Comment(s): LAST SEIZURE about 1 yr ago. needs to get back on tegretol .H-pylori, arthritis in multiple joints, compression fracture L1 with chronic pain, , hypothyroid, , past elevated liver function tests, L breast "lump" being monitored, she has had blurry vision tri focals./bed wetting. weak bladder Cervical CA with hysterectomy. Adrenal insufficency. heartburn worse, ? reoccurance of hiatal hernia. seasonal allergies. History of Any Multi-Drug Resistant Organisms: MRSA Date of last positivie culture/infection: 05/17/23 MDRO Source:: Right Foot Past Surgical History: Adenoidectomy, Breast Surgery, Cholecystectomy, Hysterectomy, Orthopedic Surgery, Tonsillectomy, Tubal Ligation Additional Past Surgical History / Comment(s): Bilateral breast implants, bilateral oophorectomy d/t cysts, EGDs, EGD with dilation, susu fundoplication with revision, R elbow surgery for MRSA infection, R rotator cuff repair, low back surgery (cemented), bilateral hip surgery for tendon/muscle repairs/screws in place. Cervical fusion C4,5,6,7 Past Anesthesia/Blood Transfusion Reactions: Family History of Problems w/ Anesthesia Additional Past Anesthesia/Blood Transfusion Reaction / Comment(s): MOTHER= A- FIB WITH ANESTHESIA. Past Psychological History: Anxiety, Bipolar, Depression Smoking Status: Current every day smoker, Vaper Past Alcohol Use History: None Reported Past Drug Use History: None Reported - Past Family History Father Family Medical History: Eye Disorder, Hypertension Additional Family Medical History / Comment(s): Father committed suicide at the age of 58yrs. He had glaucoma Brother(s) Family Medical History: No Reported History Additional Family Medical History / Comment(s): She has one brother that is a recovered alcoholic with no other major medical problems. Sister(s) Additional Family Medical History / Comment(s): Patient has one sister that suffers from depression and anxiety Mother Family Medical History: Cancer, Dementia, Diabetes Mellitus, Deep Vein Thrombosis (DVT), Eye Disorder, Hypertension Additional Family Medical History / Comment(s): Corneal transplant, breast cancer General Exam Limitations: no limitations General appearance: alert, in no apparent distress Head exam: Present: atraumatic, normocephalic, normal inspection Eye exam: Present: normal appearance, PERRL, EOMI. Absent: scleral icterus, conjunctival injection, periorbital swelling ENT exam: Present: normal exam, mucous membranes moist Neck exam: Present: tenderness. Absent: meningismus, full ROM Respiratory exam: Present: normal lung sounds bilaterally. Absent: respiratory distress, wheezes, rales, rhonchi, stridor Cardiovascular Exam: Present: regular rate, normal rhythm, normal heart sounds. Absent: systolic murmur, diastolic murmur, rubs, gallop, clicks Extremities exam: Present: normal inspection, full ROM, normal capillary refill. Absent: tenderness, pedal edema, joint swelling, calf tenderness Back exam: Present: normal inspection Neurological exam: Present: alert, oriented X3 Psychiatric exam: Present: normal affect, normal mood Skin exam: Present: warm, dry, intact, normal color. Absent: rash Course Vital Signs 04/07/24 04/07/24 15:54 18:47 Temperature 98 F 98.3 F Pulse Rate 88 73 Respiratory 18 18 Rate Blood Pressure 152/97 155/98 O2 Sat by Pulse 99 98 Oximetry Medical Decision Making - Medical Decision Making Was pt. sent in by a medical professional or institution (, PA, [employer] WORKER, urgent care, hospital, or senior care...) When possible be specific @ -[No] Did you speak to anyone other than the patient for history (EMS, parent, family, police, friend...)? What history was obtained from this source @ -[No] Did you review nursing and triage notes (agree or disagree)? Why? @ -[I reviewed and agree with nursing and triage notes] Were old charts reviewed (outside hosp., previous admission, EMS record, old EKG, old radiological studies, urgent care reports/EKG's, senior care records)? Report findings @ -[No old charts were reviewed] Differential Diagnosis (chest pain, altered mental status, abdominal pain women, abdominal pain men, vaginal bleeding, weakness, fever, dyspnea, syncope, headac he, dizziness, GI bleed, back pain, seizure, CVA, palpatations, mental health, musculoskeletal)? @ -fracture, radiculopathy, muscle strain, this list is not all inclusive EKG interpreted by me (3pts min.). @ -none X-rays interpreted by me (1pt min.). @ -[None done] CT interpreted by me (1pt min.). @ -[CT brain and C spine shows no acute process] U/S interpreted by me (1pt. min.). @ -[None done] What testing was considered but not performed or refused? (CT, X-rays, U/S, labs)? Why? @ -[None] What meds were considered but not given or refused? Why? @ -[None] Did you discuss the management of the patient with other professionals (professionals i.e. , PA, [employer] WORKER, lab, RT, psych nurse, social media coordinator, risk management director, teacher, correctional officer, case hardener)? Give summary @ -[No] Was smoking cessation discussed for >3mins.? @ -[No] Was critical care preformed (if so, how long)? @ -[No] Were there social determinants of health that impacted care today? How? (Homelessness, low income, unemployed, alcoholism, drug addiction, transportation, low edu. Level, literacy, decrease access to med. care, senior care, rehab)? @ -[No] Was there de-escalation of care discussed even if they declined (Discuss DNR or withdrawal of care, Hospice)? DNR status @ -[No] What co-morbidities impacted this encounter? (DM, HTN, Smoking, COPD, CAD, Cancer, CVA, ARF, Chemo, Hep., AIDS, mental health diagnosis, sleep apnea, morbid obesity)? @ -[None] Was patient admitted / discharged? Hospital course, mention meds given and route, prescriptions, significant lab abnormalities, going to OR and other pertinent info. @ -discharged. Patient presented to the emergency department for evaluation of neck pain. Patient reports symptoms x10 days. No recent trauma. Labs obtained showing no significant leukocytosis, no lactic acidosis, UA revealing no evidence for infectious process. CT brain and C spine shows no acute intracranial fracture, no acute c spine fracture or traumatic malalignment, C spine fixation intact. Patient advised on findings and will be discharged home. Advised ortho follow up. Patient understanding and agreeable with plan. Patient stable at time of discharge. Case discussed with Dr. Brooks Undiagnosed new problem with uncertain prognosis? @ -[No] Drug Therapy requiring intensive monitoring for toxicity (Heparin, Nitro, Insulin, Cardizem)? @ -[No] Were any procedures done? @ -[No] Diagnosis/symptom? @ -[neck strain] Acute, or Chronic, or Acute on Chronic? @ -[acute] Uncomplicated (without systemic symptoms) or Complicated (systemic symptoms)? @ -[uncomplicated] Side effects of treatment? @ -[No] Exacerbation, Progression, or Severe Exacerbation? @ -[No] Poses a threat to life or bodily function? How? (Chest pain, [place], [place], pneumonia, PE, COPD, DKA, ARF, appy, cholecystitis, CVA, Diverticulitis, Homicidal, Suicidal, threat to staff... and all critical care pts) @ -[No] - Lab Data Result diagrams: 04/07/24 18:00 04/07/24 18:00 Lab Results 04/07/24 04/07/24 04/07/24 Range/Units 17:00 18:00 18:00 WBC 9.7 (3.8-10.6) k/uL RBC 4.34 (3.80-5.40) m/uL Hgb 14.2 (11.4-16.0) gm/dL Hct 45.1 (34.0-46.0) % MCV 103.9 H (80.0-100.0) fL MCH 32.6 (25.0-35.0) pg MCHC 31.4 (31.0-37.0) g/dL RDW 13.6 (11.5-15.5) % Plt Count 259 (150-450) k/uL MPV 7.9 Neutrophils % 49 % Lymphocytes % 41 % Monocytes % 5 % Eosinophils % 2 % Basophils % 1 % Neutrophils # 4.8 (1.3-7.7) k/uL Lymphocytes # 4.0 (1.0-4.8) k/uL Monocytes # 0.5 (0-1.0) k/uL Eosinophils # 0.2 (0-0.7) k/uL Basophils # 0.1 (0-0.2) k/uL Macrocytosis Slight Sodium 138 (137-145) mmol/L Potassium 4.2 (3.5-5.1) mmol/L Chloride 108 H (98-107) mmol/L Carbon Dioxide 20 L (22-30) mmol/L Anion Gap 10 mmol/L BUN 24 H (7-17) mg/dL Creatinine 0.91 (0.52-1.04) mg/dL Est GFR (CKD-EPI)AfAm 83 (>60 ml/min/1.73 sqM) Est GFR (CKD-EPI)NonAf 72 (>60 ml/min/1.73 sqM) Glucose 76 (74-99) mg/dL Plasma Lactic Acid Matthew (0.7-2.0) mmol/L Calcium 9.8 (8.4-10.2) mg/dL Total Bilirubin 0.4 (0.2-1.3) mg/dL AST 26 (14-36) U/L ALT 27 (4-34) U/L Alkaline Phosphatase 107 (38-126) U/L Total Protein 7.5 (6.3-8.2) g/dL Albumin 4.7 (3.5-5.0) g/dL Urine Color Colorless Urine Appearance Clear (Clear) Urine pH 6.0 (5.0-8.0) Ur Specific [place] 1.007 (1.001-1.035) Urine Protein Negative (Negative) Urine Glucose (UA) Negative (Negative) Urine Ketones Negative (Negative) Urine Blood Negative (Negative) Urine Nitrite Negative (Negative) Urine Bilirubin Negative (Negative) Urine Urobilinogen <2.0 (<2.0) mg/dL Ur Leukocyte Esterase Negative (Negative) 04/07/24 Range/Units 18:00 WBC (3.8-10.6) k/uL RBC (3.80-5.40) m/uL Hgb (11.4-16.0) gm/dL Hct (34.0-46.0) % MCV (80.0-100.0) fL MCH (25.0-35.0) pg MCHC (31.0-37.0) g/dL RDW (11.5-15.5) % Plt Count (150-450) k/uL MPV Neutrophils % % Lymphocytes % % Monocytes % % Eosinophils % % Basophils % % Neutrophils # (1.3-7.7) k/uL Lymphocytes # (1.0-4.8) k/uL Monocytes # (0-1.0) k/uL Eosinophils # (0-0.7) k/uL Basophils # (0-0.2) k/uL Macrocytosis Sodium (137-145) mmol/L Potassium (3.5-5.1) mmol/L Chloride (98-107) mmol/L Carbon Dioxide (22-30) mmol/L Anion Gap mmol/L BUN (7-17) mg/dL Creatinine (0.52-1.04) mg/dL Est GFR (CKD-EPI)AfAm (>60 ml/min/1.73 sqM) Est GFR (CKD-EPI)NonAf (>60 ml/min/1.73 sqM) Glucose (74-99) mg/dL Plasma Lactic Acid Matthew 1.3 (0.7-2.0) mmol/L Calcium (8.4-10.2) mg/dL Total Bilirubin (0.2-1.3) mg/dL AST (14-36) U/L ALT (4-34) U/L Alkaline Phosphatase (38-126) U/L Total Protein (6.3-8.2) g/dL Albumin (3.5-5.0) g/dL Urine Color Urine Appearance (Clear) Urine pH (5.0-8.0) Ur Specific [place] (1.001-1.035) Urine Protein (Negative) Urine Glucose (UA) (Negative) Urine Ketones (Negative) Urine Blood (Negative) Urine Nitrite (Negative) Urine Bilirubin (Negative) Urine Urobilinogen (<2.0) mg/dL Ur Leukocyte Esterase (Negative) Disposition Clinical Impression: Strain of neck muscle Disposition: HOME SELF-CARE Condition: Stable Instructions (If sedation given, give patient instructions): Cervical Sprain (ED) Additional Instructions: Please follow up with your pain management and primary care provider. Return to the emergency department for new or worsening symptoms. Is patient prescribed a controlled substance at d/c from ED?: No Referrals: Albert Cerna MD [Primary Care Provider] - 1-2 days
== END 2024-04-07 19:00 | disposition home or self-care (01) ==
LOC: EC 15:53
DX: S16.1XXA Strain of muscle, fascia and tendon at neck level, initial encounter (principal); F17.290 Nicotine dependence, other tobacco product, uncomplicated; Z88.2 Allergy status to sulfonamides; Z88.0 Allergy status to penicillin; Z91.012 Allergy to eggs; Z91.041 Radiographic dye allergy status; Z88.8 Allergy status to other drugs, medicaments and biological substances; X58.XXXA Exposure to other specified factors, initial encounter
CPT/HCPCS: 36415; 70450; 72125; 80053; 81003; 83605; 85025; 99284

== ENCOUNTER → 2024-04-09 | Outpatient (CLI) | payer MEDICARE, OTHER ==
[2024-04-09 16:31] LABS: ALT 94 U/L (8-44); AST 140 U/L (13-35); Albumin 4.7 g/dL (3.8-4.9); Albumin/Globulin Ratio 1.88 Ratio (1.60-3.17); Alkaline Phosphatase 110 U/L (41-126); Bilirubin, Conjugated <0.20 mg/dL (0.20-0.40); Blood Urea Nitrogen 18.7 mg/dL (9.0-27.0); Calcium 9.5 mg/dL (8.7-10.3); Carbon Dioxide 19.7 mmol/L (21.6-31.8); Chloride 101 mmol/L (96-109); Chol/HDL Ratio 2.43 Ratio; Globulin 2.5 g/dL (1.6-3.3); Glucose 100 mg/dL (70-110); LDL Cholesterol,Calculated 32.9 mg/dL (0.0-131.0); Potassium 4.5 mmol/L (3.5-5.5); Sodium 136 mmol/L (135-145); T4, Free (Free Thyroxine) 1.31 ng/dL (0.80-1.80); Total Bilirubin 0.3 mg/dL (0.3-1.2); Total Protein 7.2 g/dL (6.2-8.2)
[2024-04-09 17:11] LABS: Bilirubin,Unconjugated >0.1 mg/dL (0.2-1.0)
== END | disposition home or self-care (01) ==
LOC: LABWHC1 09:59
PROVIDERS: ATTEND Internal Medicine
DX: E78.2 Mixed hyperlipidemia (principal); E27.40 Unspecified adrenocortical insufficiency; R94.6 Abnormal results of thyroid function studies
CPT/HCPCS: 36415; 80053; 80061; 82248; 84439; 84443; 84481

== ENCOUNTER 2024-05-11 09:23 | Emergency (ER) | payer MEDICARE, OTHER ==
[2024-05-11] MEDS ORDERED: methylPREDNISolone SOD SUCCI 125 MG/2 ML VIAL ONE (11:41)
[2024-05-11] MEDS ORDERED: KETOROLAC 15 MG/ML 1 ML VIAL ONE (11:41)
[2024-05-11] MEDS ORDERED: TRIAMCINOLONE 0.1% CREAM 80 GM TUBE TOPICAL ONE (12:24)
[2024-05-11] MEDS ORDERED: oxyCODONE-APAP 10-325MG 1 EACH TAB ONE (14:22)
[2024-05-11] MEDS ORDERED: cefTRIAXone IN SWFI 1,000 MG/10 ML SYRINGE IVP ONE (15:12)
== END 2024-05-11 15:58 | disposition home or self-care (01) ==
LOC: EC 09:23
CPT/HCPCS: 96374; 96375; 99283

== ENCOUNTER 2024-08-07 15:36 | Observation (INO) | payer MEDICARE, OTHER ==
[2024-08-07 16:29] LABS: Basophils % (A) 1 %; Eosinophils # (A) 0.1 k/uL (0-0.7); Eosinophils % (A) 1 %; HCT 42.9 % (34.0-46.0); HGB 13.5 gm/dL (11.4-16.0); Lymphocytes # (A) 2.1 k/uL (1.0-4.8); Lymphocytes % (A) 24 %; MCH 32.9 pg (25.0-35.0); MCHC 31.5 g/dL (31.0-37.0); MCV 104.5 fL (80.0-100.0); Macrocytosis Slight; Mean Platelet Volume 7.7; Monocytes # (A) 0.4 k/uL (0-1.0); Monocytes % (A) 4 %; Neutrophils # (A) 6.1 k/uL (1.3-7.7); Neutrophils % (A) 69 %; Platelet Count 242 k/uL (150-450); RBC 4.11 m/uL (3.80-5.40); RDW 12.3 % (11.5-15.5); WBC 8.7 k/uL (3.8-10.6)
[2024-08-07 16:49] LABS: ALT 23 U/L (4-34); AST 23 U/L (14-36); African American GFR (CKD) 60 (>60 ml/min/1.73 sqM); Albumin 4.3 g/dL (3.5-5.0); Alkaline Phosphatase 70 U/L (38-126); Anion Gap 12 mmol/L; Blood Urea Nitrogen 12 mg/dL (7-17); Calcium 9.2 mg/dL (8.4-10.2); Carbon Dioxide 16 mmol/L (22-30); Chloride 108 mmol/L (98-107); Glucose 130 mg/dL (74-99); Magnesium 1.7 mg/dL (1.6-2.3); Non-African American GFR(CKD) 52 (>60 ml/min/1.73 sqM); Potassium 3.7 mmol/L (3.5-5.1); Sodium 136 mmol/L (137-145); Total Bilirubin 0.6 mg/dL (0.2-1.3); Total Protein 6.7 g/dL (6.3-8.2)
--- NOTE | 2024-08-07 17:01 | XR ---
EXAMINATION TYPE: XR chest 2V DATE OF EXAM: 08/07/2024 4:49 PM COMPARISON: Chest radiographs from 09/30/2023. CLINICAL INDICATION: Female, 54 years old with history of Chest Pain; TECHNIQUE: XR chest 2V Frontal and lateral views of the chest. FINDINGS: Lungs/Pleura: There is no evidence of pleural effusion, focal consolidation, or pneumothorax. Right basilar streaky atelectasis. Pulmonary vascularity: Unremarkable. Heart/mediastinum: Cardiomediastinal silhouette is unremarkable. Musculoskeletal: No acute osseous pathology. IMPRESSION: No acute cardiopulmonary disease/process. [facility], , 08/07/2024 4:59 PM
--- NOTE | 2024-08-07 17:10 | ED ---
General Adult HPI - General Chief complaint: Chest Pain Stated complaint: chest pain, seizure Time Seen by Provider: 08/07/24 16:20 Source: patient Mode of arrival: wheelchair Limitations: no limitations - History of Present Illness Initial comments: Dictation was produced using [employer] dictation software. please excuse any grammatical, word or spelling errors. Chief Complaint: 54-year-old female with history of seizure and coronary artery disease presents to the emergency department after syncope History of Present Illness: Patient 54-year-old female. History present illness obtained from patient along with significant other at the bedside. They went out for a walk when all of a sudden she syncopized. Significant other states that for couple minutes patient was twitching. Patient has been without her seizure medication since September of this year ever since having a heart attack. Has not had a seizure since last year. Patient states she feels sore believes that she had a seizure. She did not stool or urinate herself. Denied denies biting her tongue. She does have some mild chest pressure. Diaphoresis or nausea. The ROS documented in this emergency department record has been reviewed and confirmed by me. Those systems with pertinent positive or negative responses have been documented in the HPI. All other systems are other negative and/or noncontributory. - Related Data Home Medications Medication Instructions Recorded Confirmed oxyCODONE-APAP 10-325MG [Percocet 1 tab PO TID PRN 07/21/20 08/07/24 10-325 mg] diphenhydrAMINE HCL [Benadryl] 50 mg PO HS 09/05/23 08/07/24 Melatonin 5 mg PO HS 10/02/23 08/07/24 Naloxegol Oxalate [Movantik] 25 mg PO DAILY PRN 10/02/23 08/07/24 Omeprazole [PriLOSEC] 40 mg PO DAILY 10/02/23 08/07/24 Aspirin EC [Ecotrin Low Dose] 81 mg PO DAILY 10/10/23 08/07/24 Clopidogrel [Plavix] 75 mg PO DAILY 10/10/23 08/07/24 Albuterol Inhaler [Ventolin Hfa 2 puff INHALATION RT-QID PRN 08/07/24 08/07/24 Inhaler] Atorvastatin [Lipitor] 40 mg PO HS 08/07/24 08/07/24 Baclofen 10 mg PO TID PRN 08/07/24 08/07/24 Evolocumab [Repatha Sureclick] 140 mg SQ Q14D 08/07/24 08/07/24 Fluconazole [Diflucan] 150 mg PO Q72H PRN 08/07/24 08/07/24 Gabapentin [Neurontin] 400 mg PO TID 08/07/24 08/07/24 Hydrocortisone [Cortef] 5 mg PO DAILY@1400 08/07/24 08/07/24 Hydrocortisone [Cortef] 10 mg PO DAILY 08/07/24 08/07/24 Magnesium Oxide [Magox 400] 400 mg PO BID 08/07/24 08/07/24 Metoprolol Succinate (ER) [Toprol 25 mg PO DAILY 08/07/24 08/07/24 Xl] QUEtiapine [SEROquel] 100 mg PO HS 08/07/24 08/07/24 Sacubitril/Valsartan [Entresto 24 1 tab PO BID 08/07/24 08/07/24 mg-26 mg Tablet] metroNIDAZOLE [Flagyl] 500 mg PO BID 08/07/24 08/07/24 Allergies Allergy/AdvReac Type Severity Reaction Status Date / Time Penicillins Allergy Severe Anaphylaxis Verified 08/07/24 17:51 Iodinated Contrast Media Allergy Unknown Rash/Hives Verified 08/07/24 17:51 [Iodinated Contrast Media - IV Dye] egg yolk Allergy Nausea Verified 08/07/24 17:51 morphine Allergy Unknown Verified 08/07/24 17:51 mustard Allergy Nausea Verified 08/07/24 17:51 Sulfa (Sulfonamide Allergy Rash/Hives Verified 08/07/24 17:51 Antibiotics) sulfamethoxazole Allergy Rash/Hives Verified 08/07/24 17:51 [From Bactrim] trimethoprim [From Bactrim] Allergy Rash/Hives Verified 08/07/24 17:51 Review of Systems ROS Statement: Those systems with pertinent positive or pertinent negative responses have been documented in the HPI. ROS Other: All systems not noted in ROS Statement are negative. Past Medical History Past Medical History: Cancer, COPD, Fibromyalgia, GERD/Reflux, Hyperlipidemia, Hypertension, Osteoarthritis (OA), Pneumonia, Seizure Disorder, Thyroid Disorder Additional Past Medical History / Comment(s): LAST SEIZURE about 1 yr ago. needs to get back on tegretol .H-pylori, arthritis in multiple joints, compression f racture L1 with chronic pain, , hypothyroid, , past elevated liver function tests, L breast "lump" being monitored, she has had blurry vision tri focals./bed wetting. weak bladder Cervical CA with hysterectomy. Adrenal insufficency. heartburn worse, ? reoccurance of hiatal hernia. seasonal allerg ies. History of Any Multi-Drug Resistant Organisms: MRSA Date of last positivie culture/infection: 05/17/23 MDRO Source:: Right Foot Past Surgical History: Adenoidectomy, Breast Surgery, Cholecystectomy, Hysterectomy, Orthopedic Surgery, Tonsillectomy, Tubal Ligation Additional Past Surgical History / Comment(s): Bilateral breast implants, bilateral oophorectomy d/t cysts, EGDs, EGD with dilation, susu fundoplication with revision, R elbow surgery for MRSA infection, R rotator cuff repair, low back surgery (cemented), bilateral hip surgery for tendon/muscle repairs/screws in place. Cervical fusion C4,5,6,7 Past Anesthesia/Blood Transfusion Reactions: Family History of Problems w/ Anesthesia Additional Past Anesthesia/Blood Transfusion Reaction / Comment(s): MOTHER= A- FIB WITH ANESTHESIA. Past Psychological History: Anxiety, Bipolar, Depression Smoking Status: Current every day smoker, Vaper Past Alcohol Use History: Occasional Past Drug Use History: None Reported - Past Family History Father Family Medical History: Eye Disorder, Hypertension Additional Family Medical History / Comment(s): Father committed suicide at the age of 58yrs. He had glaucoma Brother(s) Family Medical History: No Reported History Additional Family Medical History / Comment(s): She has one brother that is a recovered alcoholic with no other major medical problems. Sister(s) Additional Family Medical History / Comment(s): Patient has one sister that suffers from depression and anxiety Mother Family Medical History: Cancer, Dementia, Diabetes Mellitus, Deep Vein Thrombosis (DVT), Eye Disorder, Hypertension Additional Family Medical History / Comment(s): Corneal transplant, breast cancer General Exam - General Exam Comments Initial Comments: PHYSICAL EXAM: General Impression: Alert and oriented x3, not in acute distress HEENT: Normocephalic atraumatic, extra-ocular movements intact, pupils equal and reactive to light bilaterally, mucous membranes moist. Cardiovascular: Heart regular rate and rhythm Chest: Able to complete full sentences, no retractions, no tachypnea Abdomen: abdomen soft, non-tender, non-distended, no organomegaly Musculoskeletal: Pulses present and equal in all extremities, no peripheral edema Motor: no focal deficits noted Neurological: CN II-XII grossly intact, no focal motor or sensory deficits noted Skin: Intact with no visualized rashes Psych: Normal affect and mood Limitations: no limitations Course Vital Signs 08/07/24 08/07/24 08/07/24 15:38 16:03 16:33 Temperature 97.5 F L 97.9 F Pulse Rate 61 80 84 Respiratory 14 16 18 Rate Blood Pressure 88/67 96/70 106/69 O2 Sat by Pulse 97 98 96 Oximetry 08/07/24 08/07/24 17:00 18:17 Temperature Pulse Rate 85 79 Respiratory 17 16 Rate Blood Pressure 108/65 110/66 O2 Sat by Pulse 95 97 Oximetry EKG Findings - EKG Comments: EKG Findings:: My EKG interpretation: Ventricular rate 70, sinus rhythm,. 140, QRS 90, QTc 422. No GA prolongation, no QTC prolongation, no ST or T-wave changes noted. . Overall, this EKG is unremarkable Medical Decision Making - Medical Decision Making Was pt. sent in by a medical professional or institution (, PA, VALVE MECHANIC, urgent care, hospital, or halfway...) When possible be specific @ -No Did you speak to anyone other than the patient for history (EMS, parent, family, police, friend...)? What history was obtained from this source @ -See above Did you review nursing and triage notes (agree or disagree)? Why? @ -I reviewed and agree with nursing and triage notes Were old charts reviewed (outside hosp., previous admission, EMS record, old EKG, old radiological studies, urgent care reports/EKG's, halfway records)? Report findings @ -No old charts were reviewed Differential Diagnosis (chest pain, altered mental status, abdominal pain women, abdominal pain men, vaginal bleeding, musculoskeletal, weakness, fever, dyspnea, syncope, headache, dizziness, GI bleed, back pain, seizure, CVA, palpatations, mental health)? @ -Differential Chest Pain: Stable Angina, Unstable Angina, STEMI, NSTEMI Aortic Dissection, Pneumothorax, Musculoskeletal, Esophageal Spasm GERD, Cholecystitis, Pancreatitis, Zoster, this is not meant to be an all-inclusive list. EKG interpreted by me (3pts min.). @ -See above X-rays interpreted by me (1pt min.). @ -Chest x-ray is nonacute CT interpreted by me (1pt min.). @ -None done U/S interpreted by me (1pt. min.). @ -None done What testing was considered but not performed or refused? (CT, X-rays, U/S, labs)? Why? @ -None What meds were considered but not given or refused? Why? @ -None Was smoking cessation discussed for >3mins.? @ -No Were there social determinants of health that impacted care today? How? (Homelessness, low income, unemployed, alcoholism, drug addiction, transportation, low edu. Level, literacy, decrease access to med. care, halfway, rehab)? @ -No Was there de-escalation of care discussed even if they declined (Discuss DNR or withdrawal of care, Hospice)? DNR status @ -No What co-morbidities impacted this encounter? (DM, HTN, Smoking, COPD, CAD, Cancer, CVA, ARF, Chemo, Hep., AIDS, mental health diagnosis, sleep apnea, morbid obesity)? @ -Seizure history, history of LAD thrombosis OR Was patient admitted / discharged? Hospital course, mention meds given and route, prescriptions, significant lab abnormalities, going to OR and other pertinent info. @ -84-year-old female with history of coronary artery disease and seizure presents to the ER after syncope. She has features of seizure with postictal state however had what was described as decorticate posturing. There was no associated tongue avulsion or loss of bowel or bladder control. Patient also having symptoms concerning for ACS with history of coronary artery disease. Laboratory evaluation obtained. Labs are unremarkable. Has a slight metabolic reaction supporting the diagnosis of seizure. Nonetheless given patient's cardiac history should be admitted observation cardiology consultation. Neurology will also be consulted. Discussed with hospitalist for admission Did you discuss the management of the patient with other professionals (professionals i.e. , PA, VALVE MECHANIC, lab, RT, psych nurse, secondary social studies teacher, vp genetic, teacher, canine enforcement officer, case management assistant)? Give summary @ -Above Was critical care preformed (if so, how long)? @ -No Undiagnosed new problem with uncertain prognosis? @ -No Drug Therapy requiring intensive monitoring for toxicity (Heparin, Nitro, Insulin, Cardizem)? @ -No Were any procedures done? @ -No Diagnosis/symptom? Acute, or Chronic, or Acute on Chronic? Uncomplicated (wi thout systemic symptoms) or Complicated (systemic symptoms)? @ -Syncope pr versus seizure ocedure Side effects of treatment? @ -No Exacerbation, Progression, or Severe Exacerbation? @ -No Poses a threat to life or bodily function? How? (Chest pain, USA, OR, pneumonia, PE, COPD, DKA, ARF, appy, cholecystitis, CVA, Diverticulitis, Homicidal, Suicidal, threat to staff... and all critical care pts) @ -yes - Lab Data Result diagrams: 08/07/24 16:18 08/07/24 16:18 Lab Results 08/07/24 08/07/24 08/07/24 Range/Units 16:18 16:18 16:18 WBC 8.7 (3.8-10.6) k/uL RBC 4.11 (3.80-5.40) m/uL Hgb 13.5 (11.4-16.0) gm/dL Hct 42.9 (34.0-46.0) % MCV 104.5 H (80.0-100.0) fL MCH 32.9 (25.0-35.0) pg MCHC 31.5 (31.0-37.0) g/dL RDW 12.3 (11.5-15.5) % Plt Count 242 (150-450) k/uL MPV 7.7 Neutrophils % 69 % Lymphocytes % 24 % Monocytes % 4 % Eosinophils % 1 % Basophils % 1 % Neutrophils # 6.1 (1.3-7.7) k/uL Lymphocytes # 2.1 (1.0-4.8) k/uL Monocytes # 0.4 (0-1.0) k/uL Eosinophils # 0.1 (0-0.7) k/uL Basophils # 0.0 (0-0.2) k/uL Macrocytosis Slight PT 10.8 (10.0-12.5) sec INR 1.0 (<1.2) APTT 21.1 L (22.0-30.0) sec Sodium 136 L (137-145) mmol/L Potassium 3.7 (3.5-5.1) mmol/L Chloride 108 H (98-107) mmol/L Carbon Dioxide 16 L (22-30) mmol/L Anion Gap 12 mmol/L BUN 12 (7-17) mg/dL Creatinine 1.19 H (0.52-1.04) mg/dL Est GFR (CKD-EPI)AfAm 60 (>60 ml/min/1.73 sqM) Est GFR (CKD-EPI)NonAf 52 (>60 ml/min/1.73 sqM) Glucose 130 H (74-99) mg/dL Calcium 9.2 (8.4-10.2) mg/dL Magnesium 1.7 (1.6-2.3) mg/dL Total Bilirubin 0.6 (0.2-1.3) mg/dL AST 23 (14-36) U/L ALT 23 (4-34) U/L Alkaline Phosphatase 70 (38-126) U/L Troponin I (0.000-0.034) ng/mL NT-Pro-B Natriuret Pep pg/mL Total Protein 6.7 (6.3-8.2) g/dL Albumin 4.3 (3.5-5.0) g/dL 08/07/24 08/07/24 Range/Units 16:18 16:18 WBC (3.8-10.6) k/uL RBC (3.80-5.40) m/uL Hgb (11.4-16.0) gm/dL Hct (34.0-46.0) % MCV (80.0-100.0) fL MCH (25.0-35.0) pg MCHC (31.0-37.0) g/dL RDW (11.5-15.5) % Plt Count (150-450) k/uL MPV Neutrophils % % Lymphocytes % % Monocytes % % Eosinophils % % Basophils % % Neutrophils # (1.3-7.7) k/uL Lymphocytes # (1.0-4.8) k/uL Monocytes # (0-1.0) k/uL Eosinophils # (0-0.7) k/uL Basophils # (0-0.2) k/uL Macrocytosis PT (10.0-12.5) sec INR (<1.2) APTT (22.0-30.0) sec Sodium (137-145) mmol/L Potassium (3.5-5.1) mmol/L Chloride (98-107) mmol/L Carbon Dioxide (22-30) mmol/L Anion Gap mmol/L BUN (7-17) mg/dL Creatinine (0.52-1.04) mg/dL Est GFR (CKD-EPI)AfAm (>60 ml/min/1.73 sqM) Est GFR (CKD-EPI)NonAf (>60 ml/min/1.73 sqM) Glucose (74-99) mg/dL Calcium (8.4-10.2) mg/dL Magnesium (1.6-2.3) mg/dL Total Bilirubin (0.2-1.3) mg/dL AST (14-36) U/L ALT (4-34) U/L Alkaline Phosphatase (38-126) U/L Troponin I <0.012 (0.000-0.034) ng/mL NT-Pro-B Natriuret Pep 53 pg/mL Total Protein (6.3-8.2) g/dL Albumin (3.5-5.0) g/dL Disposition Clinical Impression: Syncope Disposition: ADMITTED IP TO THIS HOSP Condition: Fair Referrals: Albert Cerna MD [Primary Care Provider] - 1-2 days Decision Time: 18:47
[2024-08-07 17:54] LABS: Prothrombin Time 10.8 sec (10.0-12.5)
[2024-08-07 18:01] LABS: Partial Thromboplastin Time 21.1 sec (22.0-30.0)
[2024-08-07] MEDS ORDERED: NITROGLYCERIN SL TABS 0.4 MG TAB SUBLINGUAL PRN (18:44)
[2024-08-07] MEDS: ASPIRIN 81 MG PO STA (18:54)
[2024-08-07] MEDS ORDERED: diphenhydrAMINE 25 MG CAP PO PRN (23:21)
[2024-08-07] MEDS ORDERED: ALBUTEROL NEBULIZED 2.5 MG/3 ML INHALATION PRN (23:21)
[2024-08-07] MEDS ORDERED: BACLOFEN 10 MG TAB PO PRN (23:21)
[2024-08-07] MEDS ORDERED: NON FORMULARY DRUG (Naloxegol Oxalate [Movantik] 25 MG Tablet) PO PRN (23:21)
[2024-08-07] MEDS: CLOPIDOGREL 75 MG TAB PO SCH (23:32)
[2024-08-07] MEDS: QUEtiapine 100 MG TAB PO SCH (23:45)
[2024-08-07] MEDS: ATORVASTATIN 40 MG TAB PO SCH (23:45)
[2024-08-07] MEDS: oxyCODONE-APAP 10-325MG 1 EACH TAB PO PRN (23:46)
[2024-08-07] MEDS: SACUBITRIL/VALSARTAN 24 MG-26 MG TABLET PO SCH (23:46)
[2024-08-07] MEDS: MAGNESIUM OXIDE 400 MG TAB PO SCH (23:46)
[2024-08-07] MEDS: GABAPENTIN 400 MG CAP PO SCH (23:46)
[2024-08-07] MEDS: MELATONIN 5 MG TABLET PO SCH (23:46)
[2024-08-08] MEDS: PANTOPRAZOLE 40 MG TABLET PO SCH (06:31)
[2024-08-08 08:56] LABS: Chol/HDL Ratio 2.23 Ratio; LDL Cholesterol,Calculated 16.4 mg/dL (0.0-131.0)
[2024-08-08] MEDS ORDERED: NON FORMULARY DRUG (Aspirin Ec 81 MG Tablet) PO SCH (09:00)
--- NOTE | 2024-08-08 09:52 | P.CRDCN ---
History of Present Illness Consult date: 08/08/24 Consult reason: chest pain History of present illness: This is a 54-year-old female patient of Dr. Hickey with past medical history of CAD with prior stenting of the LAD in the setting of acute coronary syndrome, known intermediate disease involving the left circumflex and RCA, ischemic cardiomyopathy, hypertension, dyslipidemia, tobacco use and dependence, adrenal insufficiency. We have been asked to evaluate the patient for chest pain. She states that she has noted that her blood pressure has been on the low side and she has been feeling fatigued and weak. She states she had an episode where she turned white had like seizure activity and she stopped breathing for few seconds. The day before, patient had a crampy type chest pain that went away on its own. She also complains of wheezing. She tested her blood pressure at home it was 72/52. She does complain of dizziness. Regarding smoking, patient is normally greater than 1 pack/day and is cut back to 2 to 3 cigarettes/day. Patient presented with blood pressure of 88/67. Blood pressure is now 101/65, heart rate 65, pulse ox 93% on room air. EKG: Sinus rhythm with T wave inversions nonspecific ST changes V2V6, unchanged from previous Chest x-ray: No acute process Laboratory studies: WBC 8.7, hemoglobin 13.5. Sodium 136, potassium 3.7, BUN 12 and creatinine 1.19. Troponin negative x 3. proBNP 53. Triglycerides 177, cholesterol 94, LDL 16, HDL 42. Home cardiac medications: Aspirin 81 mg daily, atorvastatin 40 mg at bedtime, Plavix 75 mg daily, Repatha 140 mg every 14 days, Toprol XL 25 mg daily, Entresto 24-26 mg 1 twice daily. Echocardiogram performed in February at Dr. Cerna's office showed a normal LV systolic function with mild valvular abnormalities and impaired relaxation of the LV over stage I diastolic dysfunction. Cardiac catheterization performed 10/06/2023 revealed critical disease involving the proximal LAD, intermediate disease involving the mid RCA and intermediate disease involving the OM1. Patient underwent PCI with stent placement to the proximal LAD at that time. Previous echocardiogram performed 11/27/2023 revealed EF of 45%, trace to mild mitral regurgitation, mild tricuspid regurgitation, normal pulmonary artery systolic pressure. Review Of Systems: At the time of my exam: CONSTITUTIONAL: Denies fever or chills. HEENT: Denies blurred vision, vision changes, or eye pain. Denies hemoptysis CARDIOVASCULAR: Denies chest pain. Denies orthopnea. Denies PND. Denies palpitations RESPIRATORY: Denies shortness of breath. GASTROINTESTINAL: Denies abdominal pain. Denies nausea or vomiting. HEMATOLOGIC: Denies bleeding disorders. GENITOURINARY: Denies any blood in urine. SKIN: Denies puritis. Denies rash. Physical examination: Gen: This is a 54-year-old female in no acute distress VS: reviewed HEENT: Head is atraumatic, normocephalic. Pupils equal, round. Sclerae is anicteric. NECK: Supple. No JVD. LUNGS: Clear to auscultation. No wheezes or rhonchi. No intercostal retractions. HEART: Regular rate and rhythm. Soft systolic murmur. ABDOMEN: Soft No tenderness. EXTREMITIES: No pedal edema. No calf tenderness. NEUROLOGICAL: Patient is awake, alert and oriented x3. Assessment: Atypical chest pain, acute coronary syndrome ruled out Dizziness episode with shaking Hypotension CAD with prior stenting of the LAD in the setting of acute coronary syndrome and known intermediate disease of the left circumflex, RCA History of ischemic cardiomyopathy with recovered EF Hypertension Dyslipidemia Tobacco use and dependence Adrenal insufficiency Plan: Resume patient's home cardiac medications Obtain stress echocardiogram today Obtain 2-D echocardiogram and Doppler study to assess cardiac structure and function If repeat echocardiogram reveals normal EF, we will plan to discontinue Entresto Further recommendations to follow based upon clinical course Thank you kindly for this consultation. Nurse practitioner note has been reviewed, I agree with documented findings and plan of care. Patient was seen and examined. Past Medical History Past Medical History: Cancer, COPD, Fibromyalgia, GERD/Reflux, Hyperlipidemia, Hypertension, Myocardial Infarction ([place]), Osteoarthritis (OA), Pneumonia, Seizure Disorder, Thyroid Disorder Additional Past Medical History / Comment(s): LAST SEIZURE about 1 yr ago. needs to get back on tegretol .H-pylori, arthritis in multiple joints, compression fracture L1 with chronic pain, , hypothyroid, , past elevated liver function tests, L breast "lump" being monitored, she has had blurry vision tri focals./bed wetting. weak bladder Cervical CA with hysterectomy. Adrenal insufficency. heartburn worse, ? reoccurance of hiatal hernia. seasonal allergies. Last Myocardial Infarction Date:: Sep 2023 History of Any Multi-Drug Resistant Organisms: MRSA Date of last positivie culture/infection: 05/17/23 MDRO Source:: Right Foot Past Surgical History: Adenoidectomy, Breast Surgery, Cholecystectomy, Heart Catheterization With Stent, Hysterectomy, Orthopedic Surgery, Tonsillectomy, Tubal Ligation Additional Past Surgical History / Comment(s): Bilateral breast implants, bilateral oophorectomy d/t cysts, EGDs, EGD with dilation, susu fundoplication with revision, R elbow surgery for MRSA infection, R rotator cuff repair, low back surgery (cemented), bilateral hip surgery for tendon/muscle repairs/screws in place. Cervical fusion C4,5,6,7, cardiac arrest in Sep with heart cath with stent. Past Anesthesia/Blood Transfusion Reactions: Family History of Problems w/ Anesthesia Additional Past Anesthesia/Blood Transfusion Reaction / Comment(s): MOTHER= A-FIB WITH ANESTHESIA. Date of Last Stent Placement:: Sep 2023 Past Psychological History: Anxiety, Bipolar, Depression Additional Psychological History / Comment(s): Pt resides with her 13 yr old grandson who has ADHD and for whom she has full custody. She does not drive, boyfriend or family drive her places. She has a nebulizer. Smoking Status: Current every day smoker, Vaper Past Alcohol Use History: Occasional Additional Past Alcohol Use History / Comment(s): Pt started smoking in 1984,7- 13 cigarettes a day ,currently drinks a pint of vodka daily Past Drug Use History: None Reported Additional Drug Use History / Comment(s): Smoked marijuana as a young woman, none since. - Past Family History Father Family Medical History: Eye Disorder, Hypertension Additional Family Medical History / Comment(s): Father committed suicide at the age of 58yrs. He had glaucoma Brother(s) Family Medical History: No Reported History Additional Family Medical History / Comment(s): She has one brother that is a recovered alcoholic with no other major medical problems. Sister(s) Additional Family Medical History / Comment(s): Patient has one sister that suffers from depression and anxiety Mother Family Medical History: Cancer, Dementia, Diabetes Mellitus, Deep Vein Thrombosis (DVT), Eye Disorder, Hypertension Additional Family Medical History / Comment(s): Corneal transplant, breast cancer Medications and Allergies Home Medications Medication Instructions Recorded Confirmed Type oxyCODONE-APAP 10-325MG [Percocet 1 tab PO TID PRN 07/21/20 08/07/24 History 10-325 mg] diphenhydrAMINE HCL [Benadryl] 50 mg PO HS 09/05/23 08/07/24 History Melatonin 5 mg PO HS 10/02/23 08/07/24 History Naloxegol Oxalate [Movantik] 25 mg PO DAILY PRN 10/02/23 08/07/24 History Omeprazole [PriLOSEC] 40 mg PO DAILY 10/02/23 08/07/24 History Aspirin EC [Ecotrin Low Dose] 81 mg PO DAILY 10/10/23 08/07/24 History Clopidogrel [Plavix] 75 mg PO DAILY 10/10/23 08/07/24 History Albuterol Inhaler [Ventolin Hfa 2 puff INHALATION RT-QID PRN 08/07/24 08/07/24 History Inhaler] Atorvastatin [Lipitor] 40 mg PO HS 08/07/24 08/07/24 History Baclofen 10 mg PO TID PRN 08/07/24 08/07/24 History Evolocumab [Repatha Sureclick] 140 mg SQ Q14D 08/07/24 08/07/24 History Fluconazole [Diflucan] 150 mg PO Q72H PRN 08/07/24 08/07/24 History Gabapentin [Neurontin] 400 mg PO TID 08/07/24 08/07/24 History Hydrocortisone [Cortef] 5 mg PO DAILY@1400 08/07/24 08/07/24 History Hydrocortisone [Cortef] 10 mg PO DAILY 08/07/24 08/07/24 History Magnesium Oxide [Magox 400] 400 mg PO BID 08/07/24 08/07/24 History Metoprolol Succinate (ER) [Toprol 25 mg PO DAILY 08/07/24 08/07/24 History Xl] QUEtiapine [SEROquel] 100 mg PO HS 08/07/24 08/07/24 History Sacubitril/Valsartan [Entresto 24 1 tab PO BID 08/07/24 08/07/24 History mg-26 mg Tablet] metroNIDAZOLE [Flagyl] 500 mg PO BID 08/07/24 08/07/24 History Allergies Allergy/AdvReac Type Severity Reaction Status Date / Time Penicillins Allergy Severe Anaphylaxis Verified 08/07/24 17:51 Iodinated Contrast Media Allergy Unknown Rash/Hives Verified 08/07/24 17:51 [Iodinated Contrast Media - IV Dye] egg yolk Allergy Nausea Verified 08/07/24 17:51 morphine Allergy Unknown Verified 08/07/24 17:51 mustard Allergy Nausea Verified 08/07/24 17:51 Sulfa (Sulfonamide Allergy Rash/Hives Verified 08/07/24 17:51 Antibiotics) sulfamethoxazole Allergy Rash/Hives Verified 08/07/24 17:51 [From Bactrim] trimethoprim [From Bactrim] Allergy Rash/Hives Verified 08/07/24 17:51 Physical Exam Vitals: Vital Signs Temp Pulse Pulse Resp BP BP Pulse Ox 08/08/24 01:46 98.7 F 73 17 111/74 95 08/07/24 22:00 13 08/07/24 20:59 99.3 F 77 18 110/75 97 08/07/24 20:27 98.9 F 85 16 113/70 97 08/07/24 18:57 69 16 118/86 98 08/07/24 18:17 79 16 110/66 97 08/07/24 17:00 85 17 108/65 95 08/07/24 16:33 84 18 106/69 96 08/07/24 16:03 97.9 F 80 16 96/70 98 08/07/24 15:38 97.5 F L 61 14 88/67 97 Intake and Output 08/07/24 08/08/24 08/08/24 22:59 06:59 14:59 Intake Total 480 Balance 480 Intake: Oral 480 Other: Voiding Method Toilet # Voids 1 2 Weight 88.451 kg Results 08/07/24 16:18 08/07/24 16:18 Cardiac Enzymes 08/07/24 08/07/24 08/07/24 Range/Units 16:18 16:18 19:23 AST 23 (14-36) U/L Troponin I <0.012 <0.012 (0.000-0.034) ng/mL 08/07/24 Range/Units 23:59 AST (14-36) U/L Troponin I <0.012 (0.000-0.034) ng/mL Coagulation 08/07/24 Range/Units 16:18 PT 10.8 (10.0-12.5) sec APTT 21.1 L (22.0-30.0) sec CBC 08/07/24 Range/Units 16:18 WBC 8.7 (3.8-10.6) k/uL RBC 4.11 (3.80-5.40) m/uL Hgb 13.5 (11.4-16.0) gm/dL Hct 42.9 (34.0-46.0) % Plt Count 242 (150-450) k/uL Comprehensive Metabolic Panel 08/07/24 Range/Units 16:18 Sodium 136 L (137-145) mmol/L Potassium 3.7 (3.5-5.1) mmol/L Chloride 108 H (98-107) mmol/L Carbon Dioxide 16 L (22-30) mmol/L BUN 12 (7-17) mg/dL Creatinine 1.19 H (0.52-1.04) mg/dL Glucose 130 H (74-99) mg/dL Calcium 9.2 (8.4-10.2) mg/dL AST 23 (14-36) U/L ALT 23 (4-34) U/L Alkaline Phosphatase 70 (38-126) U/L Total Protein 6.7 (6.3-8.2) g/dL Albumin 4.3 (3.5-5.0) g/dL Current Medications Generic Name Dose Route Start Last Admin Trade Name Freq PRN Reason Stop Dose Admin Albuterol Sulfate 2.5 mg 08/07/24 23:21 Albuterol Nebulized 2.5 Mg/3 Ml INHALATION RT-QID PRN Shortness Of Breath Aspirin 325 mg 08/08/24 09:00 Aspirin 325 Mg Tab PO DAILY MISAEL Atorvastatin Calcium 40 mg 08/07/24 23:30 08/07/24 23:45 Atorvastatin 40 Mg Tab PO 40 mg HS MISAEL Administration Baclofen 10 mg 08/07/24 23:21 Baclofen 10 Mg Tab PO TID PRN Muscle Spasm Clopidogrel Bisulfate 75 mg 08/07/24 09:00 08/07/24 23:32 Clopidogrel 75 Mg Tab PO Not Given DAILY MISAEL Diphenhydramine HCl 50 mg 08/07/24 23:21 Diphenhydramine 25 Mg Cap PO HS PRN Allergy Symptoms Fluconazole 150 mg 11/14/24 09:00 Fluconazole 150 Mg Tab PO Q72H [facility] Protocol Gabapentin 400 mg 08/07/24 23:30 08/07/24 23:46 Gabapentin 400 Mg Cap PO 400 mg TID [facility] Administration Hydrocortisone 5 mg 08/08/24 14:00 Hydrocortisone 10 Mg Tab PO DAILY@1400 [facility] Hydrocortisone 10 mg 08/08/24 09:00 Hydrocortisone 10 Mg Tab PO DAILY [facility] Magnesium Oxide 400 mg 08/07/24 23:30 08/07/24 23:46 Magnesium Oxide 400 Mg Tab PO 400 mg BID [facility] Administration Melatonin 5 mg 08/07/24 23:30 08/07/24 23:46 Melatonin 5 Mg Tablet PO 5 mg HS [facility] Administration Metoprolol Succinate 25 mg 08/08/24 09:00 Metoprolol Succinate (Er) 25 Mg Tab.Er.24h PO DAILY [facility] Nitroglycerin 0.4 mg 08/07/24 18:44 Nitroglycerin Sl Tabs 0.4 Mg Tab SUBLINGUAL Q5M PRN Chest Pain Non-Formulary Medication 25 mg 08/07/24 23:21 Naloxegol Oxalate [Movantik] PO DAILY PRN Constipation Oxycodone/Acetaminophen 1 each 08/07/24 23:21 08/08/24 06:31 Oxycodone-Apap 10-325mg 1 Each Tab PO 1 each TID PRN Administration Pain Pantoprazole Sodium 40 mg 08/08/24 07:30 08/08/24 06:31 Pantoprazole 40 Mg Tablet PO 40 mg DAILY@0730 [facility] Administration Quetiapine Fumarate 100 mg 08/07/24 23:30 08/07/24 23:45 Quetiapine 100 Mg Tab PO 100 mg HS [facility] Administration Sacubitril/Valsartan 1 each 08/07/24 23:30 08/07/24 23:46 Sacubitril/Valsartan 24 Mg-26 Mg Tablet PO 1 each BID [facility] Administration Intake and Output 08/07/24 08/08/24 08/08/24 22:59 06:59 14:59 Intake Total 480 Balance 480 Intake: Oral 480 Other: Voiding Method Toilet # Voids 1 2 Weight 88.451 kg 08/07/24 16:18 08/07/24 16:18
[2024-08-08] MEDS: ASPIRIN 325 MG TAB PO SCH (10:24)
[2024-08-08] MEDS: METOPROLOL SUCCINATE (ER) 25 MG TAB.ER.24H PO SCH (10:24)
[2024-08-08] MEDS: FLUCONAZOLE 150 MG TAB PO SCH (10:25)
[2024-08-08] MEDS: HYDROCORTISONE 10 MG TAB PO SCH ×2 (10:26→13:22)
--- NOTE | 2024-08-08 11:06 | CA ---
Stress Echo Report Renay Meneses Age: 54 Gender: F : 1970 Exam Date: 08/08/2024 10:27 Exam Location: [place] [facility] Ht (in): Wt (lb): Ordering Physician: Myrtle Gregory Referring Physician: [id number] Medical Support Specialist: PARAG Technologist Procedure CPT: Indication: Chest Pain ICD-9 Codes: Rhythm: Patient History: chest pain and history of ASCAD Cardiac Medications: Medications in past 24 hours: Contrast: Definity Stress Results Protocol: Leif Total dose(mL): 2 Exercise Duration (min:sec): 6:[address] Depression (mm): Angina Score: Carcamo Score: METS: 7.3 Resting HR: 70 Resting BP: 104 / 63 Peak HR: 144 Peak BP: 154 / 71 Max Predicted HR: 167 86 % Max Predicted HR Target HR: 142 Double Product: 33004 Stress Summary: BP Response: Reason for Termination: Reached target heart rate or work-load, Maximal effort/unable to continue Cardiac Symptoms: Dyspnea ECG Analysis Resting ECG: Stress ECG: Arrhythmia: Echo Analysis Resting Echo: Peak Echo Analysis: MEASUREMENTS (Male/Female) Normal Values CONCLUSIONS Excellent exercise tolerance Normal electrocardiogram and echocardiogram in response to exercise Dr. Arian Hickey MD (Electronically Signed) Final Date: 08 August 2024 11:05
--- NOTE | 2024-08-08 11:17 | CA ---
Transthoracic Echo Report Name: Renay Meneses Age: 54 Gender: F : 1970 Exam Date: 08/08/2024 10:52 Exam Location: [place] [facility] Ht (in): 71 Wt (lb): 195 Ordering Physician: Myrtle Gregory Attending/Referring Phys: [id number], [facility] [employer] Supervisor Ly White, ISABEL Procedure CPT: Indications: LVF Cardiac Hx: Breast Implants, [place] Technical Quality: Fair Contrast 1: Total Dose (mL): Contrast 2: Total Dose (mL): MEASUREMENTS (Male / Female) Normal Values 2D ECHO LV Diastolic Diameter PLAX 4.6 cm 4.2 - 5.9 / 3.9 - 5.3 cm LV Systolic Diameter PLAX 2.6 cm IVS Diastolic Thickness 1.1 cm 0.6 - 1.0 / 0.6 - 0.9 cm LVPW Diastolic Thickness 1.0 cm 0.6 - 1.0 / 0.6 - 0.9 cm LV Relative Wall Thickness 0.4 RV Internal Dim ED PLAX 2.3 cm LA Systolic Diameter LX 3.7 cm 3.0 - 4.0 / 2.7 - 3.8 cm LV Diastolic Volume MOD BP 41.9 cm??? 67 - 155 / 56 - 104 cm??? LV Systolic Volume MOD BP 22.7 cm??? - 58 / 19 - 49 cm??? LV Ejection Fraction MOD BP 45.8 % >= 55 % LV Cardiac Index MOD BP 795.2 cm???/min???m??? LV Diastolic Volume MOD 4C 45.3 cm??? LV Systolic Volume MOD 4C 16.8 cm??? LV Ejection Fraction MOD 4C 62.9 % LV Cardiac Index MOD 4C 1184.4 cm???/min???m??? LV Diastolic Length 4C 6.5 cm LV Systolic Length 4C 5.9 cm LV Diastolic Volume MOD 2C 37.9 cm??? LV Systolic Volume MOD 2C 29.3 cm??? LV Ejection Fraction MOD 2C 22.7 % LV Cardiac Index MOD 2C 358.0 cm???/min???m??? LV Diastolic Length 2C 6.7 cm LV Systolic Length 2C 6.4 cm LA Volume 31.3 cm??? 18 - 58 / 22 - 52 cm??? LA Volume Index 14.8 cm???/m??? 16 - 28 cm???/m??? M-MODE Aortic Root Diameter MM 2.8 cm LA Systolic Diameter MM 3.5 cm LA Ao Ratio MM 1.2 AV Cusp Separation MM 1.6 cm DOPPLER MV Area PHT 2.0 cm??? Mitral E Point Velocity 65.1 cm/s Mitral A Point Velocity 59.6 cm/s Mitral E to A Ratio 1.1 MV Deceleration Time 370.4 ms FINDINGS Left Ventricle Left ventricular ejection fraction is estimated at 50-55 %. Mildly increased septal wall thickness. Mildly decreased left ventricular ejection fraction. Left ventricular cavity size normal. Right Ventricle Mild right ventricular dilatation. Reduced right ventricular global systolic function. Unable to estimate the right ventricular systolic pressure. Right Atrium Normal right atrial size. Left Atrium Normal left atrial size. Mitral Valve Structurally normal mitral valve. Trace mitral regurgitation. No mitral stenosis. Aortic Valve Trileaflet aortic valve. No aortic valve stenosis or regurgitation. Tricuspid Valve Structurally normal tricuspid valve. Trace tricuspid regurgitation. No tricuspid stenosis. Pulmonic Valve Structurally normal pulmonic valve. Trace pulmonic regurgitation. No pulmonic stenosis. Pericardium No pericardial or pleural effusion. Aorta Normal size aortic root and proximal ascending aorta. CONCLUSIONS Normal LV systolic function Mildly dilated RV Normal intracardiac valves No pericardial effusion Previewed by: Dr. Arian Hickey MD (Electronically Signed) Final Date: 08 August 2024 11:15
--- NOTE | 2024-08-08 16:28 | P.HPIM ---
History of Present Illness H&P Date: 08/08/24 Chief Complaint: Chest pain History and Physical and Discharge Summary: This is a 54-year-old female with past medical history significant for CAD, stenting of the LAD, acute coronary syndrome, ischemic cardiomyopathy, hypertension, hyperlipidemia, nicotine dependence, and multiple other medical issues presented to the ER with chest pain. Reports yesterday morning she developed mild chest pain, described as nonradiating left side cramping/sque ezing chest followed by sweats, became pale while looking at pictures, appeared to have collapsed for few seconds up to 1 minute per significant other. states there was no shaking, no foaming at the mouth, minimal twitching with mild dizziness. Blood pressure was low 72/52. Reports her blood pressure had been low x 1 week, Entresto dose was decreased. Denies increase in shortness of breath, states she always has shortness of breath with exertion. Patient vapes. EKG reported sinus rhythm with T wave inversions , troponins negative x 3. chest x-ray were nonacute.Afebrile, Tmax 99.3, hematology unremarkable with the exception of MCV elevated at 104.5 .maintaining O2 sats in the 90s on room air. INR 1. Sodium 136, potassium 3.7, chloride 108, bicarb 16, BUN 12, creatinine 1.19-baseline, glucose 130. Review of Systems ROS Statement: Those systems with pertinent positive or pertinent negative responses have been documented in the HPI. ROS Other: All systems not noted in ROS Statement are negative. Past Medical History Past Medical History: Cancer, COPD, Fibromyalgia, GERD/Reflux, Hyperlipidemia, Hypertension, Myocardial Infarction (MS), Osteoarthritis (OA), Pneumonia, Seizure Disorder, Thyroid Disorder Additional Past Medical History / Comment(s): LAST SEIZURE about 1 yr ago. needs to get back on tegretol .H-pylori, arthritis in multiple joints, compression fracture L1 with chronic pain, , hypothyroid, , past elevated liver function tests, L breast "lump" being monitored, she has had blurry vision tri focals./bed wetting. weak bladder Cervical CA with hysterectomy. Adrenal insufficency. heartburn worse, ? reoccurance of hiatal hernia. seasonal allergies. Last Myocardial Infarction Date:: Sep 2023 History of Any Multi-Drug Resistant Organisms: MRSA Date of last positivie culture/infection: 05/17/23 MDRO Source:: Right Foot Past Surgical History: Adenoidectomy, Breast Surgery, Cholecystectomy, Heart Catheterization With Stent, Hysterectomy, Orthopedic Surgery, Tonsillectomy, Tubal Ligation Additional Past Surgical History / Comment(s): Bilateral breast implants, bilateral oophorectomy d/t cysts, EGDs, EGD with dilation, susu fundoplication with revision, R elbow surgery for MRSA infection, R rotator cuff repair, low back surgery (cemented), bilateral hip surgery for tendon/muscle repairs/screws in place. Cervical fusion C4,5,6,7, cardiac arrest in Sep with heart cath with stent. Past Anesthesia/Blood Transfusion Reactions: Family History of Problems w/ Anesthesia Additional Past Anesthesia/Blood Transfusion Reaction / Comment(s): MOTHER= A- FIB WITH ANESTHESIA. Date of Last Stent Placement:: Sep 2023 Past Psychological History: Anxiety, Bipolar, Depression Additional Psychological History / Comment(s): Pt resides with her 13 yr old grandson who has ADHD and for whom she has full custody. She does not drive, boyfriend or family drive her places. She has a nebulizer. Smoking Status: Current every day smoker, Vaper Past Alcohol Use History: Occasional Additional Past Alcohol Use History / Comment(s): Pt started smoking in 1984,7- 13 cigarettes a day ,currently drinks a pint of vodka daily Past Drug Use History: None Reported Additional Drug Use History / Comment(s): Smoked marijuana as a young woman, none since. - Past Family History Father Family Medical History: Eye Disorder, Hypertension Additional Family Medical History / Comment(s): Father committed suicide at the age of 58yrs. He had glaucoma Brother(s) Family Medical History: No Reported History Additional Family Medical History / Comment(s): She has one brother that is a recovered alcoholic with no other major medical problems. Sister(s) Additional Family Medical History / Comment(s): Patient has one sister that suffers from depression and anxiety Mother Family Medical History: Cancer, Dementia, Diabetes Mellitus, Deep Vein Thrombosis (DVT), Eye Disorder, Hypertension Additional Family Medical History / Comment(s): Corneal transplant, breast cancer Medications and Allergies Home Medications Medication Instructions Recorded Confirmed Type oxyCODONE-APAP 10-325MG [Percocet 1 tab PO TID PRN 07/21/20 08/07/24 History 10-325 mg] diphenhydrAMINE HCL [Benadryl] 50 mg PO HS 09/05/23 08/07/24 History Melatonin 5 mg PO HS 10/02/23 08/07/24 History Naloxegol Oxalate [Movantik] 25 mg PO DAILY PRN 10/02/23 08/07/24 History Omeprazole [PriLOSEC] 40 mg PO DAILY 10/02/23 08/07/24 History Aspirin EC [Ecotrin Low Dose] 81 mg PO DAILY 10/10/23 08/07/24 History Clopidogrel [Plavix] 75 mg PO DAILY 10/10/23 08/07/24 History Albuterol Inhaler [Ventolin Hfa 2 puff INHALATION RT-QID PRN 08/07/24 08/07/24 History Inhaler] Atorvastatin [Lipitor] 40 mg PO HS 08/07/24 08/07/24 History Baclofen 10 mg PO TID PRN 08/07/24 08/07/24 History Evolocumab [Repatha Sureclick] 140 mg SQ Q14D 08/07/24 08/07/24 History Fluconazole [Diflucan] 150 mg PO Q72H PRN 08/07/24 08/07/24 History Gabapentin [Neurontin] 400 mg PO TID 08/07/24 08/07/24 History Hydrocortisone [Cortef] 5 mg PO DAILY@1400 08/07/24 08/07/24 History Hydrocortisone [Cortef] 10 mg PO DAILY 08/07/24 08/07/24 History Magnesium Oxide [Magox 400] 400 mg PO BID 08/07/24 08/07/24 History Metoprolol Succinate (ER) [Toprol 25 mg PO DAILY 08/07/24 08/07/24 History XL] QUEtiapine [SEROquel] 100 mg PO HS 08/07/24 08/07/24 History Sacubitril/Valsartan [Entresto 24 1 tab PO BID 08/07/24 08/07/24 History mg-26 mg Tablet] metroNIDAZOLE [Flagyl] 500 mg PO BID 08/07/24 08/07/24 History Allergies Allergy/AdvReac Type Severity Reaction Status Date / Time Penicillins Allergy Severe Anaphylaxis Verified 08/07/24 17:51 Iodinated Contrast Media Allergy Unknown Rash/Hives Verified 08/07/24 17:51 [Iodinated Contrast Media - IV Dye] egg yolk Allergy Nausea Verified 08/07/24 17:51 morphine Allergy Unknown Verified 08/07/24 17:51 mustard Allergy Nausea Verified 08/07/24 17:51 Sulfa (Sulfonamide Allergy Rash/Hives Verified 08/07/24 17:51 Antibiotics) sulfamethoxazole Allergy Rash/Hives Verified 08/07/24 17:51 [From Bactrim] trimethoprim [From Bactrim] Allergy Rash/Hives Verified 08/07/24 17:51 Physical Exam Vitals: Vital Signs Temp Pulse Pulse Resp BP BP Pulse Ox 08/08/24 07:00 98.1 F 65 16 101/65 93 L 08/08/24 01:46 98.7 F 73 17 111/74 95 08/07/24 22:00 13 08/07/24 20:59 99.3 F 77 18 110/75 97 08/07/24 20:27 98.9 F 85 16 113/70 97 08/07/24 18:57 69 16 118/86 98 08/07/24 18:17 79 16 110/66 97 08/07/24 17:00 85 17 108/65 95 08/07/24 16:33 84 18 106/69 96 08/07/24 16:03 97.9 F 80 16 96/70 98 08/07/24 15:38 97.5 F L 61 14 88/67 97 Intake and Output 08/07/24 08/08/24 08/08/24 22:59 06:59 14:59 Intake Total 480 Balance 480 Intake: Oral 480 Other: Voiding Method Toilet # Voids 1 2 Weight 88.451 kg PHYSICAL EXAM: VITAL SIGNS: [As above] GENERAL: Alert and oriented 3, Sitting up in bed, no acute distress HEENT: Atraumatic, normocephalic, Conjunctivae normal. eyes normal. NECK: Supple, No JVD. No thyroid enlargement. No LNs CARDIOVASCULAR: S1, S2 regular. Systolic murmur RESPIRATION: Unlabored, equal air entry, Breath sounds diminished in the bases. No rhonchi or crackles. No bronchial breathing. ABDOMEN: Soft, nontender . No guarding. no masses palpable. No ascites, No hepatosplenomegaly.Bowel sounds heard. EXTREMITIES: Right arm ecchymosis, No edema. no swelling, no pedal edema.tenderness NERVOUS SYSTEM: Cranial N 2-12 grossly normal. Moves all 4 limbs. Diffuse weakness No focal deficits. Strength and sensation grossly intact.. Skin: Warm and dry, multiple tattoos scattered Results CBC & Chem 7: 08/07/24 16:18 08/07/24 16:18 Labs: Abnormal Lab Results - Last 24 Hours (Table) 08/07/24 08/07/24 08/07/24 Range/Units 16:18 16:18 16:18 MCV 104.5 H (80.0-100.0) fL APTT 21.1 L (22.0-30.0) sec Sodium 136 L (137-145) mmol/L Chloride 108 H (98-107) mmol/L Carbon Dioxide 16 L (22-30) mmol/L Creatinine 1.19 H (0.52-1.04) mg/dL Glucose 130 H (74-99) mg/dL Triglycerides (0.00-149.00) mg/dL 08/08/24 Range/Units 04:46 MCV (80.0-100.0) fL APTT (22.0-30.0) sec Sodium (137-145) mmol/L Chloride (98-107) mmol/L Carbon Dioxide (22-30) mmol/L Creatinine (0.52-1.04) mg/dL Glucose (74-99) mg/dL Triglycerides 177.00 H (0.00-149.00) mg/dL Thrombosis Risk Factor Assmnt - Choose All That Apply Any of the Below Risk Factors Present?: Yes Each Factor Represents 1 point: Age 41-60 years, Obesity (BMI >25) Other Risk Factors: No Other congenital or acquired thrombophilia - If yes, enter type in comment: No Thrombosis Risk Factor Assessment Total Risk Factor Score: 2 Thrombosis Risk Factor Assessment Level: Low Risk Assessment and Plan Assessment: Chest pain, troponins negative x 3, acute coronary syndrome ruled out ,cardiology following. Episode of dizziness with minimal shaking Hypotension CAD, stenting of the LAD History of ischemic cardiomyopathy with recovered EF. COPD Ongoing nicotine dependence Hypertension Hyperlipidemia Gastroesophageal reflux disease Diabetes mellitus type 2 Seizure disorder Hypothyroidism Alcohol abuse Bipolar, depression, anxiety Adrenal insufficiency Plan: Continue on current medication resume ,monitoring and symptomatic treatment. Evaluated by cardiology, stress echo/2D echo ordered. Cardiology recommending Entresto be discontinued if EF within normal limits. Patient will be discharged home today in a stable condition with guarded prognosis pending echo, stress test, final DC recommendations and clearance per cardiology and neurology. Discharge Medication List oxyCODONE-APAP 10-325MG [Percocet 10-325 mg] 1 tab PO TID PRN 07/21/20 [History] diphenhydrAMINE HCL [Benadryl] 50 mg PO HS 09/05/23 [History] Melatonin 5 mg PO HS 10/02/23 [History] Naloxegol Oxalate [Movantik] 25 mg PO DAILY PRN 10/02/23 [History] Omeprazole [PriLOSEC] 40 mg PO DAILY 10/02/23 [History] Aspirin EC [Ecotrin Low Dose] 81 mg PO DAILY 10/10/23 [History] Clopidogrel [Plavix] 75 mg PO DAILY 10/10/23 [History] Albuterol Inhaler [Ventolin Hfa Inhaler] 2 puff INHALATION RT-QID PRN 08/07/24 [History] Atorvastatin [Lipitor] 40 mg PO HS 08/07/24 [History] Baclofen 10 mg PO TID PRN 08/07/24 [History] Evolocumab [Repatha Sureclick] 140 mg SQ Q14D 08/07/24 [History] Fluconazole [Diflucan] 150 mg PO Q72H PRN 08/07/24 [History] Gabapentin [Neurontin] 400 mg PO TID 08/07/24 [History] Hydrocortisone [Cortef] 5 mg PO DAILY@1400 08/07/24 [History] Hydrocortisone [Cortef] 10 mg PO DAILY 08/07/24 [History] Magnesium Oxide [Magox 400] 400 mg PO BID 08/07/24 [History] Metoprolol Succinate (ER) [Toprol XL] 25 mg PO DAILY 08/07/24 [History] QUEtiapine [SEROquel] 100 mg PO HS 08/07/24 [History] metroNIDAZOLE [Flagyl] 500 mg PO BID 08/07/24 [History] The impression and plan of care has been dictated as directed. : I performed a history and examination of this patient, discussed the same with the dictator. I agree with the dictator's note ,documented as a scribe. Any additional findings or plans will be noted.
[2024-08-08 19:54] VITALS: BP 122/83; PULSE 73; RESP 16; TEMP 98.5
--- NOTE | 2024-08-09 10:41 | P.CNNES ---
History of Present Illness Consult date: 08/08/24 Requesting physician: Jhon Rocha Reason for Consult: Seizure? History of Present Illness: Patient is a 54-year-old female, who states that she has history of seizure disorder since 10 years of age, came to the hospital yesterday at 3:36 PM for a syncopal spell. Patient apparently was sitting in the car on the passenger seat, with her friend on the driving seat, in a parking lot, for her grandchild to come out of school when she had a syncopal spell versus seizure. Patient's friend, who witnessed this event states that she was doing well prior to this event just complaining of being tired. Suddenly her head dropped on her chest, she was nonresponsive, and he tried to get her attention but she was not responding. There was no convulsion noted, just a couple which of her shoulder and she was breathing very shallow, very pale. It was hard for her to get breathing. Her eyes did not roll back before she started coming around. It took almost 1 to 1-1/2 minutes before she became more alert and responsive. Several minutes later they checked her blood pressure was 72/52. There was no tongue bite or loss of control of urine. Patient's friend brought her to the ER. Vital signs on arrival blood pressure 88/67, which improved to 96/70 then 106/69, pulse rate 61 temperature 97.5. Blood test shows normal CBC with elevated MCV 104.5. PT PTT normal, sodium 136 potassium 3.7, normal BUN, creatinine 1.19. Hepatic panel is normal troponin negative. Cholesterol 94, LD L 16, HDL 42, triglycerides 177. EKG shows sinus rhythm patient had an EEG performed previously on 03/03/2021, which was normal. 2D echo revealed normal LV systolic function with EF 50 to 55%. Mildly increased septal wall thickness. Mildly decreased LVEF. Normal size of left and right atria. No valvular abnormalities. Patient had a CT of head and cervical spine done on 04/07/2024, which revealed no acute process. Fixation changes to the cervical spine appears intact. No evidence of cervical spinal fracture, mild multilevel degenerative disc disease. Patient had a brain MRI on 05/31/2016 which revealed mild nonspecific white matter changes. Demyelinating disease needs to be considered in the differential. Home medication clued [place], Plavix 75 mg, aspirin 81 mg, Repatha Seroquel 100 mg at bedtime, Lipitor 40 mg, Patient states that she has history of seizure disorder since she was age 10. She used to have grand mal seizures. She does not know what medications she has tried, although lately she has been on Topamax and Tegretol for years. However she had an acute FL on 10/06/2023 in which LAD was 99.9% blocked. Her seizure medications were stopped during that admission, and she has not resumed any of her seizure medications. Patient states that her seizure frequency used to be about times a month, sometimes 3. However since she has stopped her seizure medication in September, she had only 2 or 3 seizures since September 2023. It appears that seizure medication did not really make any difference. Patient also mentions that she had undergone extensive testing with her neurologist Dr. Estrada, including MRI, EEG, and she does not want to have a repeat EEG here. Patient had a tilt table test performed in the past, which patient claims was very positive. Patient states that her granddaughter has epilepsy, and daughter also has seizures. Mother has atrial fibrillation. Patient denies her personal history of any stroke or TIA. No history of major head injury. She claims to have adrenal insufficiency and takes Cortef. Florinef was tried, but that produced very severe hypertension. She has never tried midodrine. Patient has smoked 1 pack/day since age 12 for 42 years. Just since her FL in September 2023, she has been smoking only 1 to 2 cigarettes/day. She drinks on occasion. Before her FL she used to drink every day, around half a pint of vodka since age 29 off-and-on. Does not use marijuana. Review of Systems All pertinent positive and negative use as mentioned HPI. Past Medical History Past Medical History: Cancer, COPD, Fibromyalgia, GERD/Reflux, Hyperlipidemia, Hypertension, Myocardial Infarction (FL), Osteoarthritis (OA), Pneumonia, Seizure Disorder, Thyroid Disorder Additional Past Medical History / Comment(s): LAST SEIZURE about 1 yr ago. needs to get back on tegretol .H-pylori, arthritis in multiple joints, compression fracture L1 with chronic pain, , hypothyroid, , past elevated liver function tests, L breast "lump" being monitored, she has had blurry vision tri focals./bed wetting. weak bladder Cervical CA with hysterectomy. Adrenal insufficency. heartburn worse, ? reoccurance of hiatal hernia. seasonal allergies. Last Myocardial Infarction Date:: Sep 2023 History of Any Multi-Drug Resistant Organisms: MRSA Date of last positivie culture/infection: 05/17/23 MDRO Source:: Right Foot Past Surgical History: Adenoidectomy, Breast Surgery, Cholecystectomy, Heart Catheterization With Stent, Hysterectomy, Orthopedic Surgery, Tonsillectomy, Tubal Ligation Additional Past Surgical History / Comment(s): Bilateral breast implants, bilateral oophorectomy d/t cysts, EGDs, EGD with dilation, susu fundoplication with revision, R elbow surgery for MRSA infection, R rotator cuff repair, low back surgery (cemented), bilateral hip surgery for tendon/muscle repairs/screws in place. Cervical fusion C4,5,6,7, cardiac arrest in Sep with heart cath with stent. Past Anesthesia/Blood Transfusion Reactions: Family History of Problems w/ Anesthesia Additional Past Anesthesia/Blood Transfusion Reaction / Comment(s): MOTHER= A- FIB WITH ANESTHESIA. Date of Last Stent Placement:: Sep 2023 Past Psychological History: Anxiety, Bipolar, Depression Additional Psychological History / Comment(s): Pt resides with her 13 yr old grandson who has ADHD and for whom she has full custody. She does not drive, boyfriend or family drive her places. She has a nebulizer. Smoking Status: Current every day smoker, Vaper Past Alcohol Use History: Occasional Additional Past Alcohol Use History / Comment(s): Pt started smoking in 1984,7- 13 cigarettes a day ,currently drinks a pint of vodka daily Past Drug Use History: None Reported Additional Drug Use History / Comment(s): Smoked marijuana as a young woman, none since. - Past Family History Father Family Medical History: Eye Disorder, Hypertension Additional Family Medical History / Comment(s): Father committed suicide at the age of 58yrs. He had glaucoma Brother(s) Family Medical History: No Reported History Additional Family Medical History / Comment(s): She has one brother that is a recovered alcoholic with no other major medical problems. Sister(s) Additional Family Medical History / Comment(s): Patient has one sister that suffers from depression and anxiety Mother Family Medical History: Cancer, Dementia, Diabetes Mellitus, Deep Vein Thrombosis (DVT), Eye Disorder, Hypertension Additional Family Medical History / Comment(s): Corneal transplant, breast cancer Medications and Allergies Home Medications Medication Instructions Recorded Confirmed Type oxyCODONE-APAP 10-325MG [Percocet 1 tab PO TID PRN 07/21/20 08/07/24 History 10-325 mg] diphenhydrAMINE HCL [Benadryl] 50 mg PO HS 09/05/23 08/07/24 History Melatonin 5 mg PO HS 10/02/23 08/07/24 History Naloxegol Oxalate [Movantik] 25 mg PO DAILY PRN 10/02/23 08/07/24 History Omeprazole [PriLOSEC] 40 mg PO DAILY 10/02/23 08/07/24 History Aspirin EC [Ecotrin Low Dose] 81 mg PO DAILY 10/10/23 08/07/24 History Clopidogrel [Plavix] 75 mg PO DAILY 10/10/23 08/07/24 History Albuterol Inhaler [Ventolin Hfa 2 puff INHALATION RT-QID PRN 08/07/24 08/07/24 History Inhaler] Atorvastatin [Lipitor] 40 mg PO HS 08/07/24 08/07/24 History Baclofen 10 mg PO TID PRN 08/07/24 08/07/24 History Evolocumab [Repatha Sureclick] 140 mg SQ Q14D 08/07/24 08/07/24 History Fluconazole [Diflucan] 150 mg PO Q72H PRN 08/07/24 08/07/24 History Gabapentin [Neurontin] 400 mg PO TID 08/07/24 08/07/24 History Hydrocortisone [Cortef] 5 mg PO DAILY@1400 08/07/24 08/07/24 History Hydrocortisone [Cortef] 10 mg PO DAILY 08/07/24 08/07/24 History Magnesium Oxide [Magox 400] 400 mg PO BID 08/07/24 08/07/24 History Metoprolol Succinate (ER) [Toprol 25 mg PO DAILY 08/07/24 08/07/24 History XL] QUEtiapine [SEROquel] 100 mg PO HS 08/07/24 08/07/24 History metroNIDAZOLE [Flagyl] 500 mg PO BID 08/07/24 08/07/24 History Allergies Allergy/AdvReac Type Severity Reaction Status Date / Time Penicillins Allergy Severe Anaphylaxis Verified 08/07/24 17:51 Iodinated Contrast Media Allergy Unknown Rash/Hives Verified 08/07/24 17:51 [Iodinated Contrast Media - IV Dye] egg yolk Allergy Nausea Verified 08/07/24 17:51 morphine Allergy Unknown Verified 08/07/24 17:51 mustard Allergy Nausea Verified 08/07/24 17:51 Sulfa (Sulfonamide Allergy Rash/Hives Verified 08/07/24 17:51 Antibiotics) sulfamethoxazole Allergy Rash/Hives Verified 08/07/24 17:51 [From Bactrim] trimethoprim [From Bactrim] Allergy Rash/Hives Verified 08/07/24 17:51 Physical Examination - Vital Signs Vital Signs: Vital Signs Temp Pulse Pulse Resp BP BP Pulse Ox 08/08/24 18:44 96 08/08/24 14:08 98.1 F 72 18 109/72 94 L 08/08/24 07:00 98.1 F 65 16 101/65 93 L 08/08/24 01:46 98.7 F 73 17 111/74 95 08/07/24 22:00 13 08/07/24 20:59 99.3 F 77 18 110/75 97 08/07/24 20:27 98.9 F 85 16 113/70 97 Intake and Output 08/08/24 08/08/24 08/08/24 06:59 14:59 22:59 Intake Total 118 118 Balance 118 118 Intake: Oral 118 118 Other: # Voids 2 1 Patient is a middle-aged female in no acute distress. Patient is alert awake oriented to time place and person. Speech and language functions are normal. Patient can name and repeat very well. No aphasia or dysarthria. Attention, concentration and fund of knowledge is adequate. On cranial nerve examination, pupils are equal, round and reacting to light, visual kahn are full on confrontation, with no neglect on double simultaneous stimulation. Extraocular muscles are intact with no nystagmus. Face is symmetric, tongue protrudes to the midline. Palatal elevation and sensation normal, hearing and shoulder shrug normal, facial sensation normal. On muscle strength testing, there is no pronator drift and the strength is normal in arms and legs distally and proximally. Deep tendon reflexes are symmetric to all over and plantars downgoing. Sensory to touch is equal with no neglect on double simultaneous stimulation. Cerebellar function showed no ataxia for [id number] testing. No dysdiadochokinesia. No ataxia for [id number] testing on either side. Tone and bulk of muscles normal. Gait deferred.. On general examination, there is no carotid bruit or murmur, S1-S2 audible. Chest is clear on consultation. Abdomen is soft nontender. No organomegaly, bowel sounds present. Peripheral pulses are present. No peripheral edema. Results - Laboratory Findings CBC and BMP: 08/07/24 16:18 08/07/24 16:18 Abnormal Lab Findings: Abnormal Labs 08/07/24 08/07/24 08/07/24 16:18 16:18 16:18 MCV 104.5 H APTT 21.1 L Sodium 136 L Chloride 108 H Carbon Dioxide 16 L Creatinine 1.19 H Glucose 130 H Triglycerides 08/08/24 04:46 MCV APTT Sodium Chloride Carbon Dioxide Creatinine Glucose Triglycerides 177.00 H Assessment and Plan Assessment: * Probable convulsive syncope. Patient's blood pressure checked about 10 minutes after this event was 75/52, suggestive of syncopal spell rather than seizure. * Reported history of seizure disorder since age 10. * Adrenal insufficiency, on Cortef * Hypertension * Hyperlipidemia * CAD, history of FL 10/06/2023 * Tobacco use * Previous history of alcoholism Plan: * Orthostatics were checked. Her supine blood pressure 126/83, sitting 116/81 and standing 114/78, with pulse rate of 78, 77 and 84 respectively. Orthostatics negative. * May consider tilt table test. If positive may consider midodrine. She had significant hypertension from [facility], cannot take it. * Patient reports history of seizure disorder since age 10. She used to be on Topamax and Tegretol for years, but she used to have seizures once or twice a month. Since she has stopped these medications after her MRI in September 2023, her seizure frequency has decreased, happened only 2 or 3 times. She had a seizure about a month ago and her neurologist discussed about resuming seizure medication but they decided "[id number], how it goes." * We discussed about repeating EEG, but patient just had an EEG performed at her neurologist office along with multiple MRIs. She just wants to follow-up with the neurologist Dr. Ruby Downing at [facility]. * Patient is aware of [place] state law of no driving unless seizure-free for 6 months, climbing ladders, operating dangerous machinery or unsupervised swimming. * Neurologically clear for discharge. * Recommend tobacco cessation * Thank you for the consult.
== END 2024-08-08 21:05 | disposition home or self-care (01) ==
LOC: EC 15:36 → 6NMEDSUR 18:45
PROVIDERS: ADMIT Family Medicine; ATTEND Family Medicine
DX: R07.89 Other chest pain (principal); I95.9 Hypotension, unspecified; I25.10 Atherosclerotic heart disease of native coronary artery without angina pectoris; I25.5 Ischemic cardiomyopathy; I08.1 Rheumatic disorders of both mitral and tricuspid valves; J44.9 Chronic obstructive pulmonary disease, unspecified; I10 Essential (primary) hypertension; E78.5 Hyperlipidemia, unspecified; K21.9 Gastro-esophageal reflux disease without esophagitis; E11.9 Type 2 diabetes mellitus without complications; G40.409 Other generalized epilepsy and epileptic syndromes, not intractable, without status epilepticus; E03.9 Hypothyroidism, unspecified; F10.10 Alcohol abuse, uncomplicated; E27.40 Unspecified adrenocortical insufficiency; F31.9 Bipolar disorder, unspecified; F41.9 Anxiety disorder, unspecified; I25.2 Old myocardial infarction; F17.290 Nicotine dependence, other tobacco product, uncomplicated; Z91.148 Patient's other noncompliance with medication regimen for other reason; Z79.82 Long term (current) use of aspirin; Z79.02 Long term (current) use of antithrombotics/antiplatelets; Z79.899 Other long term (current) drug therapy; Z91.041 Radiographic dye allergy status; Z91.012 Allergy to eggs; Z88.5 Allergy status to narcotic agent; Z88.0 Allergy status to penicillin; Z88.2 Allergy status to sulfonamides; Z88.8 Allergy status to other drugs, medicaments and biological substances; Z91.018 Allergy to other foods; Z95.5 Presence of coronary angioplasty implant and graft
CPT/HCPCS: 99285; 36415; 93005; 93306; 83880; 80061; 80053; 83735; 84484; 85025; 85610; 85730; 71046; G0378 ×2; C8930; Q9957; 93351

== ENCOUNTER 2024-09-06 12:51 | Emergency (ER) | payer MEDICARE, OTHER ==
--- NOTE | 2024-09-06 13:14 | ED ---
SOB HPI - General Source: patient, RN notes reviewed Mode of arrival: ambulatory Limitations: no limitations <Joana Govea - Last Filed: 09/06/24 13:13> <Reuben Duncan - Last Filed: 09/06/24 15:50> - General Chief Complaint: Shortness of Breath Stated Complaint: SOB Time Seen by Provider: 09/06/24 13:13 - History of Present Illness Initial Comments: Quick note: 54-year-old female presenting to the ER for evaluation of sore throat, cough and congestion. Patient states since Monday she has been feeling unwell. She is taking Plavix as she had an [place] in September 2022. She has not been taking this medication as she has felt unwell. She did take it last night and this morning. Patient was seen at urgent care and sent here to rule out blood clot. Patient is endorsing left-sided discomfort. No chest pain. Patient reports low-grade fevers. (Joana Govea) Is a 54-year-old female who presents to the emergency department stating she has had a sore throat a cough and some shortness of breath when she is coughing since Monday. Patient states that sore throat is gone away. Patient states she went to the urgent care and because she had stopped her Plavix for few days but has started since yesterday and today they sent her in to the emergency department. Patient states she has had no chest pain. Patient denies any palpitations. Patient does not have any fever. Patient just wants to be worked up for the cough. Patient is a smoker (Reuben Duncan) - Related Data Home Medications Medication Instructions Recorded Confirmed oxyCODONE-APAP 10-325MG [Percocet 1 tab PO TID PRN 07/21/20 08/07/24 10-325 mg] diphenhydrAMINE HCL [Benadryl] 50 mg PO HS 09/05/23 08/07/24 Melatonin 5 mg PO HS 10/02/23 08/07/24 Naloxegol Oxalate [Movantik] 25 mg PO DAILY PRN 10/02/23 08/07/24 Omeprazole [PriLOSEC] 40 mg PO DAILY 10/02/23 08/07/24 Aspirin EC [Ecotrin Low Dose] 81 mg PO DAILY 10/10/23 08/07/24 Clopidogrel [Plavix] 75 mg PO DAILY 10/10/23 08/07/24 Albuterol Inhaler [Ventolin Hfa 2 puff INHALATION RT-QID PRN 08/07/24 08/07/24 Inhaler] Atorvastatin [Lipitor] 40 mg PO HS 08/07/24 08/07/24 Baclofen 10 mg PO TID PRN 08/07/24 08/07/24 Evolocumab [Repatha Sureclick] 140 mg SQ Q14D 08/07/24 08/07/24 Fluconazole [Diflucan] 150 mg PO Q72H PRN 08/07/24 08/07/24 Gabapentin [Neurontin] 400 mg PO TID 08/07/24 08/07/24 Hydrocortisone [Cortef] 5 mg PO DAILY@1400 08/07/24 08/07/24 Hydrocortisone [Cortef] 10 mg PO DAILY 08/07/24 08/07/24 Magnesium Oxide [Magox 400] 400 mg PO BID 08/07/24 08/07/24 Metoprolol Succinate (ER) [Toprol 25 mg PO DAILY 08/07/24 08/07/24 XL] QUEtiapine [SEROquel] 100 mg PO HS 08/07/24 08/07/24 metroNIDAZOLE [Flagyl] 500 mg PO BID 08/07/24 08/07/24 Previous Rx's Medication Instructions Recorded Albuterol Inhaler [Ventolin Hfa 1 - 2 puff INHALATION Q6HR PRN #2 09/06/24 Inhaler] each predniSONE [Deltasone] 40 mg PO DAILY #8 tab 09/06/24 Allergies Allergy/AdvReac Type Severity Reaction Status Date / Time Penicillins Allergy Severe Anaphylaxis Verified 09/06/24 12:53 Iodinated Contrast Media Allergy Unknown Rash/Hives Verified 09/06/24 12:53 [Iodinated Contrast Media - IV Dye] egg yolk Allergy Nausea Verified 09/06/24 12:53 morphine Allergy Unknown Verified 09/06/24 12:53 mustard Allergy Nausea Verified 09/06/24 12:53 Sulfa (Sulfonamide Allergy Rash/Hives Verified 09/06/24 12:53 Antibiotics) sulfamethoxazole Allergy Rash/Hives Verified 09/06/24 12:53 [From Bactrim] trimethoprim [From Bactrim] Allergy Rash/Hives Verified 09/06/24 12:53 Review of Systems ROS Other: All systems not noted in ROS Statement are negative. <Joana Govea - Last Filed: 09/06/24 13:13> ROS Other: All systems not noted in ROS Statement are negative. <Reuben Duncan - Last Filed: 09/06/24 15:50> ROS Statement: Those systems with pertinent positive or pertinent negative responses have been documented in the HPI. Past Medical History Past Medical History: Cancer, COPD, Fibromyalgia, GERD/Reflux, Hyperlipidemia, Hypertension, Myocardial Infarction ([place]), Osteoarthritis (OA), Pneumonia, Seizure Disorder, Thyroid Disorder Additional Past Medical History / Comment(s): LAST SEIZURE about 1 yr ago. needs to get back on tegretol .H-pylori, arthritis in multiple joints, compression fracture L1 with chronic pain, , hypothyroid, , past elevated liver function tests, L breast "lump" being monitored, she has had blurry vision tri focals./bed wetting. weak bladder Cervical CA with hysterectomy. Adrenal insufficency. heartburn worse, ? reoccurance of hiatal hernia. seasonal allergies. Last Myocardial Infarction Date:: Sep 2023 History of Any Multi-Drug Resistant Organisms: MRSA Date of last positivie culture/infection: 05/17/23 MDRO Source:: Right Foot Past Surgical History: Adenoidectomy, Breast Surgery, Cholecystectomy, Heart Catheterization With Stent, Hysterectomy, Orthopedic Surgery, Tonsillectomy, Tubal Ligation Additional Past Surgical History / Comment(s): Bilateral breast implants, bilateral oophorectomy d/t cysts, EGDs, EGD with dilation, susu fundoplication with revision, R elbow surgery for MRSA infection, R rotator cuff repair, low back surgery (cemented), bilateral hip surgery for tendon/muscle repairs/screws in place. Cervical fusion C4,5,6,7, cardiac arrest in Sep with heart cath with stent. Past Anesthesia/Blood Transfusion Reactions: Family History of Problems w/ Anesthesia Additional Past Anesthesia/Blood Transfusion Reaction / Comment(s): MOTHER= A- FIB WITH ANESTHESIA. Date of Last Stent Placement:: Sep 2023 Past Psychological History: Anxiety, Bipolar, Depression Smoking Status: Current every day smoker, Vaper Past Alcohol Use History: Occasional Past Drug Use History: None Reported - Past Family History Father Family Medical History: Eye Disorder, Hypertension Additional Family Medical History / Comment(s): Father committed suicide at the age of 58yrs. He had glaucoma Brother(s) Family Medical History: No Reported History Additional Family Medical History / Comment(s): She has one brother that is a recovered alcoholic with no other major medical problems. Sister(s) Additional Family Medical History / Comment(s): Patient has one sister that suffers from depression and anxiety Mother Family Medical History: Cancer, Dementia, Diabetes Mellitus, Deep Vein Thrombosis (DVT), Eye Disorder, Hypertension Additional Family Medical History / Comment(s): Corneal transplant, breast cancer <Joana Govea - Last Filed: 09/06/24 13:13> General Exam Limitations: no limitations <Joana Govea - Last Filed: 09/06/24 13:13> <Reuben Duncan - Last Filed: 09/06/24 15:50> - General Exam Comments Initial Comments: Visual Physical Exam Vital signs reviewed General: Well-appearing, nontoxic, no acute distress. Head: Normocephalic, atraumatic Eyes: PERRLA, EOMI ENT: Airway patent Chest: Nonlabored breathing Skin: No visual rash, normal skin tone Neuro: Alert and oriented 3 Musculoskeletal: No gross abnormalities (Joana Govea) GENERAL: Patient is well-developed and well-nourished. Patient is nontoxic and well- hydrated and is in mild distress. ENT: Neck is soft and supple. No significant lymphadenopathy is noted. Oropharynx is clear. Moist mucous membranes. Neck has full range of motion without eliciting any pain. EYES: The sclera were anicteric and conjunctiva were pink and moist. Extraocular movements were intact and pupils were equal round and reactive to light. Eyelid s were unremarkable. PULMONARY: Has a slight expiratory wheeze CARDIOVASCULAR: There is a regular rate and rhythm without any murmurs gallops or rubs. ABDOMEN: Soft and nontender with normal bowel sounds. No palpable organomegaly was noted. There is no palpable pulsatile mass. SKIN: Skin is clear with no lesions or rashes and otherwise unremarkable. NEUROLOGIC: Patient is alert and oriented x3. Cranial nerves II through XII are grossly intact. Motor and sensory are also intact. Normal speech, volume and content. Symmetrical smile. MUSCULOSKELETAL: Normal extremities with adequate strength and full range of motion. No lower extremity swelling or edema. No calf tenderness. LYMPHATICS: No significant lymphadenopathy is noted PSYCHIATRIC: Normal psychiatric evaluation. (Reuben Duncan) Course Vital Signs 09/06/24 09/06/24 09/06/24 12:53 14:08 14:14 Temperature 98.8 F 99.4 F Pulse Rate 106 H 75 Respiratory 20 20 Rate Blood Pressure 168/111 171/103 O2 Sat by Pulse 96 99 Oximetry 09/06/24 09/06/24 09/06/24 14:56 15:15 15:26 Temperature Pulse Rate 75 74 85 Respiratory 20 Rate Blood Pressure 161/104 O2 Sat by Pulse 97 Oximetry Medical Decision Making <Joana Govea - Last Filed: 09/06/24 13:13> - Lab Data Result diagrams: 09/06/24 13:32 09/06/24 13:32 <Reuben Duncan - Last Filed: 09/06/24 15:50> - Medical Decision Making I performed the quick note portion of this chart. Electronically signed by Joana Govea PA-C (Joana Govea) EKG is interpreted by myself read EKG shows a sinus rhythm at 91 bpm VT interval is 159 QRS is 86 QT interval 349 QTc is 398. Patient EKG shows no ST segment elevation or depression. (Reuben Duncan) - Lab Data Lab Results 09/06/24 09/06/24 09/06/24 Range/Units 13:32 13:32 13:32 WBC 8.4 (3.8-10.6) k/uL RBC 4.31 (3.80-5.40) m/uL Hgb 14.3 (11.4-16.0) gm/dL Hct 44.1 (34.0-46.0) % MCV 102.4 H (80.0-100.0) fL MCH 33.2 (25.0-35.0) pg MCHC 32.4 (31.0-37.0) g/dL RDW 13.1 (11.5-15.5) % Plt Count 272 (150-450) k/uL MPV 7.7 Neutrophils % 70 % Lymphocytes % 22 % Monocytes % 6 % Eosinophils % 1 % Basophils % 0 % Neutrophils # 5.8 (1.3-7.7) k/uL Lymphocytes # 1.8 (1.0-4.8) k/uL Monocytes # 0.5 (0-1.0) k/uL Eosinophils # 0.1 (0-0.7) k/uL Basophils # 0.0 (0-0.2) k/uL Macrocytosis Slight PT 10.8 (10.0-12.5) sec INR 1.0 (<1.2) APTT 22.7 (22.0-30.0) sec D-Dimer 0.46 (<0.60) mg/L FEU Sodium 138 (137-145) mmol/L Potassium 4.7 (3.5-5.1) mmol/L Chloride 106 (98-107) mmol/L Carbon Dioxide 21 L (22-30) mmol/L Anion Gap 11 mmol/L BUN 17 (7-17) mg/dL Creatinine 0.98 (0.52-1.04) mg/dL Est GFR (CKD-EPI)AfAm 76 (>60 ml/min/1.73 sqM) Est GFR (CKD-EPI)NonAf 66 (>60 ml/min/1.73 sqM) Glucose 129 H (74-99) mg/dL Plasma Lactic Acid Matthew (0.7-2.0) mmol/L Calcium 10.3 H (8.4-10.2) mg/dL Total Bilirubin 0.9 (0.2-1.3) mg/dL AST 215 H (14-36) U/L ALT 227 H (4-34) U/L Alkaline Phosphatase 109 (38-126) U/L Troponin I (0.000-0.034) ng/mL Total Protein 8.3 H (6.3-8.2) g/dL Albumin 5.1 H (3.5-5.0) g/dL Influenza Type A (PCR) (Not Detectd) Influenza Type B (PCR) (Not Detectd) RSV (PCR) (Not Detectd) SARS-CoV-2 (PCR) (Not Detectd) 09/06/24 09/06/24 09/06/24 Range/Units 13:32 13:32 13:32 WBC (3.8-10.6) k/uL RBC (3.80-5.40) m/uL Hgb (11.4-16.0) gm/dL Hct (34.0-46.0) % MCV (80.0-100.0) fL MCH (25.0-35.0) pg MCHC (31.0-37.0) g/dL RDW (11.5-15.5) % Plt Count (150-450) k/uL MPV Neutrophils % % Lymphocytes % % Monocytes % % Eosinophils % % Basophils % % Neutrophils # (1.3-7.7) k/uL Lymphocytes # (1.0-4.8) k/uL Monocytes # (0-1.0) k/uL Eosinophils # (0-0.7) k/uL Basophils # (0-0.2) k/uL Macrocytosis PT (10.0-12.5) sec INR (<1.2) APTT (22.0-30.0) sec D-Dimer (<0.60) mg/L FEU Sodium (137-145) mmol/L Potassium (3.5-5.1) mmol/L Chloride (98-107) mmol/L Carbon Dioxide (22-30) mmol/L Anion Gap mmol/L BUN (7-17) mg/dL Creatinine (0.52-1.04) mg/dL Est GFR (CKD-EPI)AfAm (>60 ml/min/1.73 sqM) Est GFR (CKD-EPI)NonAf (>60 ml/min/1.73 sqM) Glucose (74-99) mg/dL Plasma Lactic Acid Matthew 2.6 H* (0.7-2.0) mmol/L Calcium (8.4-10.2) mg/dL Total Bilirubin (0.2-1.3) mg/dL AST (14-36) U/L ALT (4-34) U/L Alkaline Phosphatase (38-126) U/L Troponin I <0.012 (0.000-0.034) ng/mL Total Protein (6.3-8.2) g/dL Albumin (3.5-5.0) g/dL Influenza Type A (PCR) Not Detected (Not Detectd) Influenza Type B (PCR) Not Detected (Not Detectd) RSV (PCR) Not Detected (Not Detectd) SARS-CoV-2 (PCR) Not Detected (Not Detectd) Disposition <Joana Govea - Last Filed: 09/06/24 13:13> Is patient prescribed a controlled substance at d/c from ED?: No Time of Disposition: 15:49 <Reuben Duncan - Last Filed: 09/06/24 15:50> Clinical Impression: Acute bronchospasm Disposition: HOME SELF-CARE Condition: Good Instructions (If sedation given, give patient instructions): Bronchospasm (ED) Prescriptions: predniSONE [Deltasone] 40 mg PO DAILY #8 tab Albuterol Inhaler [Ventolin Hfa Inhaler] 1 - 2 puff INHALATION Q6HR PRN #2 each PRN Reason: Difficulty breathing Referrals: Albert Cerna MD [Primary Care Provider] - 1-2 days
[2024-09-06 13:50] LABS: Basophils % (A) 0 %; Eosinophils # (A) 0.1 k/uL (0-0.7); Eosinophils % (A) 1 %; HCT 44.1 % (34.0-46.0); HGB 14.3 gm/dL (11.4-16.0); Lymphocytes # (A) 1.8 k/uL (1.0-4.8); Lymphocytes % (A) 22 %; MCH 33.2 pg (25.0-35.0); MCHC 32.4 g/dL (31.0-37.0); MCV 102.4 fL (80.0-100.0); Macrocytosis Slight; Mean Platelet Volume 7.7; Monocytes # (A) 0.5 k/uL (0-1.0); Monocytes % (A) 6 %; Neutrophils # (A) 5.8 k/uL (1.3-7.7); Neutrophils % (A) 70 %; Platelet Count 272 k/uL (150-450); RBC 4.31 m/uL (3.80-5.40); RDW 13.1 % (11.5-15.5); WBC 8.4 k/uL (3.8-10.6)
[2024-09-06 13:54] LABS: ALT 227 U/L (4-34); African American GFR (CKD) 76 (>60 ml/min/1.73 sqM); Albumin 5.1 g/dL (3.5-5.0); Anion Gap 11 mmol/L; Blood Urea Nitrogen 17 mg/dL (7-17); Calcium 10.3 mg/dL (8.4-10.2); Carbon Dioxide 21 mmol/L (22-30); Chloride 106 mmol/L (98-107); Glucose 129 mg/dL (74-99); Non-African American GFR(CKD) 66 (>60 ml/min/1.73 sqM); Sodium 138 mmol/L (137-145); Total Bilirubin 0.9 mg/dL (0.2-1.3); Total Protein 8.3 g/dL (6.3-8.2)
[2024-09-06 13:55] LABS: AST 215 U/L (14-36); Alkaline Phosphatase 109 U/L (38-126); Potassium 4.7 mmol/L (3.5-5.1)
[2024-09-06 13:58] LABS: Partial Thromboplastin Time 22.7 sec (22.0-30.0); Prothrombin Time 10.8 sec (10.0-12.5)
--- NOTE | 2024-09-06 14:36 | XR ---
EXAMINATION TYPE: XR chest 2V DATE OF EXAM: 09/06/2024 1:52 PM COMPARISON: 08/07/2024 CLINICAL INDICATION: Female, 54 years old with history of difficulty breathing, TECHNIQUE: XR chest 2V view(s) obtained. FINDINGS: The heart size is normal. The pulmonary vasculature is normal. The lungs are clear. IMPRESSION: 1. No acute pulmonary process. [facility], , 09/06/2024 2:33 PM
[2024-09-06] MEDS: IPRATROPIUM-ALBUTEROL 3 ML NEB INHALATION STA (15:15)
[2024-09-06 16:17] VITALS: BP 143/102; PULSE 98; RESP 18; TEMP 98.9
== END 2024-09-06 16:17 | disposition home or self-care (01) ==
LOC: EC 12:51
DX: J98.01 Acute bronchospasm (principal); F17.290 Nicotine dependence, other tobacco product, uncomplicated; Z88.0 Allergy status to penicillin; Z88.1 Allergy status to other antibiotic agents; Z88.2 Allergy status to sulfonamides; Z88.8 Allergy status to other drugs, medicaments and biological substances; Z91.041 Radiographic dye allergy status
CPT/HCPCS: 36415; 71046; 80053; 83605; 84484; 85025; 85379; 85610; 85730; 87636; 93005; 94640; 99285

== ENCOUNTER → 2025-01-30 | Outpatient (CLI) | payer MEDICARE, OTHER ==
--- NOTE | 2025-01-30 17:12 | CTL ---
EXAMINATION TYPE: CT Low Dose Lung DATE OF EXAM: 01/30/2025 4:44 PM COMPARISON: 03/02/2022 SCREENING VISIT: Subsequent CT DIAGNOSTIC QUALITY: Limited, but interpretable CLINICAL INDICATION: Female, 54 years old with history of Z12.2 LUNG CA SCR Z87.891 FORMER SMOKER, hi story of smoking, Lung cancer screening, History of tobacco use. TECHNIQUE: Low dose computed tomography scan was performed through the chest at 1 mm thick sections a nd reconstructed images in the coronal plane at 1 mm thick sections. Contrast used: mL of , (none if empty) Oral contrast used: (none if empty) CT DLP: 118.76 mGycm, Automated exposure control for dose reduction was used. CT CTDI: 3.03 mGy, Automated exposure control for dose reduction was used. FINDINGS: LUNG NODULES: None. Stable scarring at the left apex LUNGS: COPD: Severity: None Fibrosis: Severity: None Lymph nodes: None Other findings: None RIGHT PLEURAL SPACE: Effusion: None Calcification: None Thickening: None Pneumothorax: None LEFT PLEURAL SPACE: Effusion: None Calcification: None Thickening: None Pneumothorax: None HEART: Other: Ascending thoracic aorta at the level the main pulmonary artery measures 3.1 cm. The main pul monary artery at the bifurcation measures 2. cm. Heart Size: Normal Coronary calcification: Mild coronary artery calcifications present. Pericardial effusion: Minimal OTHER FINDINGS: Upper abdomen: Normal Bony thorax: Normal Supraclavicular region: Normal IMPRESSION: 1. No suspicious changes or metastatic neoplasm FOLLOW UP CT CHEST RECOMMENDATION: Follow up limited CT chest one year CT LUNG RAD: Lung-Rad 1 Negative [facility], Workstation: [facility], 01/30/2025 5:10 PM
== END | disposition home or self-care (01) ==
LOC: RADCTMAIN 15:35
PROVIDERS: ATTEND Family Medicine
DX: Z12.2 Encounter for screening for malignant neoplasm of respiratory organs (principal); Z87.891 Personal history of nicotine dependence
CPT/HCPCS: 71271

== ENCOUNTER → 2025-01-30 | Outpatient (CLI) | payer MEDICARE, OTHER ==
--- NOTE | 2025-01-30 17:28 | CT ---
EXAMINATION TYPE: CT abdomen pelvis w con DATE OF EXAM: 01/30/2025 4:40 PM COMPARISON: 04/14/2020 CLINICAL INDICATION: Female, 54 years old with history of R10.11 RUQ PAIN, EPIGASTRIC TO RUQ PAIN TECHNIQUE: Axial images were obtained from above the diaphragm to the pubic rami in the axial plane a t 5 mm thick sections. Reconstructed images are reviewed on the computer in the coronal plane. CONTRAST: 100 mL of Isovue 300. Study performed with Oral Contrast DLP: 1599 mGycm, Automated exposure control for dose reduction was used. FINDINGS: Limited CT sections are obtained the lung bases. The lung bases are clear. Mild coronary artery jluis cification is present. Minimal pericardial effusion may be present. CT ABDOMEN: Liver: Normal Spleen: Normal Pancreas: Normal Adrenal glands: The adrenal glands are normal. Gallbladder: Not identified. Common bile duct measures 1.0 cm which can be normal postcholecystectomy patient. Kidneys: No masses are evident. No hydronephrosis is present. No cysts are present. Delayed images were obtained through the kidneys, which remain unremarkable. Aorta: Minimal Vascular calcification is within the aorta. Inferior vena cava: Normal. CT PELVIS: Loops of bowel within the abdomen and pelvis are normal. There are loops of bowel which are incom pletely distended or lack oral contrast limiting their evaluation. Appendix: Normal as visualized. Urinary bladder: Normal. Genitourinary structures: Uterus and ovaries are not identified. Osseous structures: No suspicious lytic or sclerotic lesions. Screws are within the bilateral greater trochanters. There is a sclerotic area within the thoracic spine present previously IMPRESSION: 1. No suspicious abnormalities to account for right upper quadrant pain [facility], Workstation: [facility], 01/30/2025 5:26 PM
== END | disposition home or self-care (01) ==
LOC: RADCTMAIN 14:55
PROVIDERS: ATTEND Surgery
DX: R10.11 Right upper quadrant pain (principal)
CPT/HCPCS: 74177; Q9967

== ENCOUNTER → 2025-04-24 | Outpatient (CLI) | payer MEDICARE, OTHER ==
--- NOTE | 2025-04-24 11:52 | CT ---
EXAMINATION TYPE: CT abdomen pelvis wo con DATE OF EXAM: 04/24/2025 11:34 AM COMPARISON: None. CLINICAL INDICATION: Female, 55 years old with history of R10.9 ABD PAIN, R10.2 R07.9 Z01.88, diarrhe a, blood). In stool, trouble emptying bladder completely TECHNIQUE: Axial images with sagittal coronal reformats. Examination of the solid and hollow viscera is limited given the lack of contrast. CT DLP: 830.1 mGycm, Automated exposure control for dose reduction was used. FINDINGS: LUNG BASES: No evidence for nodule. No evidence for infiltrate. LIVER/GB: The gallbladder is unremarkable. No space-occupying hepatic lesion. PANCREAS: No pancreatic mass identified. No inflammatory process seen. SPLEEN: No evidence for splenomegaly. No intrasplenic lesions seen. ADRENALS: No adrenal nodules identified. No evidence for thickening. KIDNEYS: No evidence for renal mass. No nephrolithiasis. No hydronephrosis. BOWEL: Appendix has a normal appearance. No evidence of bowel obstruction. No inflammatory process. Lymph nodes: No evidence for adenopathy greater than 1 cm. Abdominal aorta: Atheromatous changes seen. No evidence for aneurysm. Genital organs: Hysterectomy changes noted. Other: No significant abnormality. IMPRESSION: NO SIGNIFICANT ABNORMALITY TO ACCOUNT FOR THE PATIENT'S SYMPTOMS. [facility], , 04/24/2025 11:50 AM
[2025-04-24 15:10] LABS: HCT 42.0 % (37.2-46.3); HGB 13.5 g/dL (12.0-15.0); MCH 34.1 pg (27.0-32.0); MCHC 32.1 g/dL (32.0-37.0); MCV 106.1 FL (80.0-97.0); NRBC Per 100 WBC 0 X 10*3/uL (0.00-0.01); Platelet Count 223 X 10*3/uL (140-440); RBC 3.96 X 10*6/uL (4.10-5.20); RDW 13.2 % (11.5-14.5); WBC 6.62 X 10*3/uL (4.50-10.00)
[2025-04-24 15:34] LABS: Anion Gap 14.50 mmol/L (4.00-12.00); Blood Urea Nitrogen 22.8 mg/dL (9.0-27.0); Carbon Dioxide 21.5 mmol/L (21.6-31.8); Chloride 101 mmol/L (96-109); Potassium 4.7 mmol/L (3.5-5.5); Sodium 137 mmol/L (135-145)
== END | disposition home or self-care (01) ==
LOC: RADCTMAIN 10:57
PROVIDERS: ATTEND Family Medicine
DX: Z01.818 Encounter for other preprocedural examination (principal); R10.9 Unspecified abdominal pain; R10.2 Pelvic and perineal pain; R07.9 Chest pain, unspecified; R19.7 Diarrhea, unspecified
CPT/HCPCS: 74176; 80051; 82565; 84520; 85027